=== PATIENT | female | born 1965 | race Caucasian/White ===

== ENCOUNTER 2019-11-04 01:59 | Inpatient (IN) | payer OTHER, SELFPAY ==
[2019-11-04] VITALS (30 sets, daily range): BP systolic 86–127; BP diastolic 51–76; PULSE 78–96; RESP 13–25; TEMP 36.3–37.2; O2SAT 96–100; BMI 29.2
--- NOTE | 2019-11-04 | ECHO_ITS ---
Patient Info Name: Jeanette Peres Age: 54 years : 1965 Gender: Female Ht: 69 in Wt: 197 lbs BSA: 2.11 m2 HR: 81 bpm BP: 106 / 76 mmHg Heart Rhythm: Sinus Rhythm Technical Quality: Good Exam Date: 11/04/2019 1:20 PM Exam Location: [facility] Patient Status: Inpatient Admit Date: 11/04/2019 Staff Ordering Physician: Grace Osman MD Management Manager: Joceline Adams RDCS Attending Provider: Branden Hendrickson MD Referring Physician: Dawson ROSENBERG; Exam Type: CA echo doppler color flow Study Info Complete two-dimensional, color flow and Doppler transthoracic echocardiogram is performed. Summary 1. Left ventricular systolic function is normal, estimated at 60%. 2. There is mildly increased left ventricular wall thickness. 3. The left ventricular diastolic function is normal. 4. E/e' 12.1 is mildly elevated. 5. Global longitudinal strain is mildly elevated at -17 %. 6. There is trace mitral valve regurgitation. 7. There is mild aortic valve sclerosis. 8. There is no aortic valve stenosis. 9. There is no aortic valve regurgitation. 10. There is mild tricuspid valve regurgitation. 11. No pulmonary hypertension, estimated pulmonary arterial systolic pressure is 9 mmHg. Left Ventricle Left ventricular chamber dimension is normal. Left ventricular systolic function is normal, estimated at 60%. There is mildly increased left ventricular wall thickness. Left ventricular septal wall motion is normal. The left ventricular diastolic function is normal. E/e' 12.1 is mildly elevated. Global longitudinal strain is mildly elevated at -17 %. Right Ventricle Right ventricular chamber dimension is normal. Right ventricular systolic function is normal. Left Atria Left atrial chamber dimension is normal. Right Atria Right atrial chamber dimension is normal. Atrial Septum Mild lipomatous hypertrophy of the atrial septum. Aortic Valve The aortic valve is probable trileaflet. There is mild aortic valve sclerosis. There is no aortic valve stenosis. There is no aortic valve regurgitation. Pulmonic Valve The pulmonic valve is not well visualized. There is trace pulmonic regurgitation. Mitral Valve The mitral valve has normal leaflets. There is trace mitral valve regurgitation. Tricuspid Valve The tricuspid valve leaflets are normal. There is mild tricuspid valve regurgitation. No pulmonary hypertension, estimated pulmonary arterial systolic pressure is 9 mmHg. Pericardium/Pleural The pericardium appears normal. There is no pericardial effusion. Inferior Vena Cava Normal inferior vena cava with >50% collapse upon inspiration consistent with normal right atrial pressure, 5 mmHg. Aorta The aortic root size at the sinus of Valsalva is normal. Left Ventricular Outflow Tract Name Value Normal LVOT 2D LVOT Diameter 2.0 cm LVOT Doppler LVOT Peak Velocity 122 cm/s LVOT Peak Gradient 6 mmHg LVOT Mean Gradient 3 mmHg LVOT VTI 22 cm LVOT VT
--- NOTE | ~2019-11-04 | US_ITS ---
EXAMINATION: US carotid duplex BI DATE: 11/04/2019 16:58 INDICATION: Carotid atherosclerosis and cerebral atherosclerosis presenting with syncope. TECHNIQUE: Grayscale, color Doppler, and pulsed Doppler images of the cervical carotid arteries were obtained. The degree of vessel stenosis is placed in one of the following categories: normal, <50%, 5 0-69%, >=70% but less than near-occlusion, near-occlusion, or total occlusion. Note that percent sten osis relative to normal distal artery lumen diameter is indirectly measured from velocity measurement s as described by Linus, et al. Radiology 2003; 229:340-346. COMPARISON: None. FINDINGS: RIGHT: The right common carotid artery (CCA) peak systolic velocity (PSV) is 112 cm/s. The right internal ca rotid artery (ICA) PSV is 94 cm/s. The right ICA end-diastolic velocity (EDV) is 29 cm/s. The right I CA/CCA PSV ratio is 0.8. Grayscale and color Doppler images yield an estimate of <50% diameter reduct ion from plaque in the ICA. The external carotid artery (ECA) PSV is 176 cm/s. There is antegrade arti w in the right vertebral artery. LEFT: The left CCA PSV is 82 cm/s. The left ICA PSV is 90 cm/s. The left ICA EDV is 26 cm/s. The left ICA/C CA PSV ratio is 1.1. Grayscale and color Doppler images yield an estimate of <50% diameter reduction from plaque in the ICA. The ECA PSV is 76 cm/s. There is antegrade flow in the left vertebral artery. IMPRESSION: 1. <50% stenosis from minimal plaque in the right internal carotid artery. 2. <50% stenosis from minimal plaque in the left internal carotid artery. Reviewed, dictated and finalized at location A. 1ST PRESSMAN ON [employer]
--- NOTE | ~2019-11-04 | XR_ITS ---
EXAMINATION: XR chest 2V DATE: 11/07/2019 09:42 INDICATION: Pneumonia, cough, and shortness of breath. TECHNIQUE: Frontal and lateral views of the chest were obtained. COMPARISON: Chest 2 views 10/28/2018, chest CT 11/04/2019 FINDINGS: There is mild atelectasis in the lower lung zones. No pleural effusion or pneumothorax. The heart size is normal. There is a catheter in left upper extremity with tip in the axilla. IMPRESSION: 1. Mild atelectasis in the lower lung zones. Reviewed, dictated and finalized at location A. HOUSE STOCKER
--- NOTE | ~2019-11-04 | CT_ITS ---
EXAMINATION: CTA chest PE protocol DATE: 11/04/2019 04:21 INDICATION: Mid chest pain, back pain, elevated d-dimer. Syncopal episode, fall. TECHNIQUE: Computed tomography angiography (CTA) of the chest was performed with 100 mL Omnipaque-350 intravenous contrast timed to evaluate the pulmonary arteries. Coronal maximum intensity projection 3D-reconstructions were created by the technologist. Automated exposure control and iterative reconst ruction technique were employed. Exam dose: 753.39 mGy-cm total exam DLP. COMPARISON: 05/24/2019 CT chest FINDINGS: There is diagnostic contrast enhancement of the pulmonary arteries and no evidence of pulmo nary embolism. No thoracic aortic aneurysm or dissection. Normal heart size. No pericardial or pleural effusion. Coronary artery atherosclerosis. Aortic and gr eat vessel calcifications. No hilar or mediastinal mass lesion or lymphadenopathy. Stable mildly lobulated 4 x 6 mm nodule in the medial basilar segment of the right lower lobe, unchan ged since 05/24/2019. There is chronic Mosaic attenuation in the lower lobes which may be due to chronic small airways dise ase. There is minimal bilateral lower lobe dependent atelectasis. Diffuse idiopathic skeletal hyperostosis of the thoracic spine. No suspicious osteolytic or osteoblas tic lesions are noted. IMPRESSION: No evidence of pulmonary embolism Coronary, aortic and great vessel atherosclerosis Reviewed, dictated and finalized at Location [facility]. Reviewed, dictated and finalized at location A. ING MACHINE OPERATOR
--- NOTE | ~2019-11-04 | CT_ITS ---
EXAMINATION: CT brain wo con DATE: 11/04/2019 04:21 INDICATION: Syncope. Fall. TECHNIQUE: Computed tomography (CT) of the head was performed without intravenous contrast. The mA wa s adjusted according to patient size. Iterative reconstruction technique was employed. Exam dose: 60 5.33 mGy-cm total exam DLP. COMPARISON: 03/12/2019 CT brain FINDINGS: Examination is limited by motion artifact. No intracranial mass lesion or hemorrhage or cerebrovascular accident is evident. Normal ventricular size. No subdural or epidural hematoma is detected. No fracture or bone destruction of the cranial vault is detected. Focal opacification in central righ t ethmoid sinus area; otherwise included paranasal sinuses and mastoid air cells are unremarkable. IMPRESSION: Limited examination; no acute intracranial abnormality or skull fracture Reviewed, dictated and finalized at [facility]. Reviewed, dictated and finalized at location A. NSED MIDWIFE IMPRESSION: Limited examination; no acute intracranial abnormality or skull fr acture
--- NOTE | 2019-11-04 02:40 | ECG_ITS ---
Measurements Intervals [place] Rate: 85 P: 16 CO: 164 QRS: -9 QRSD: 108 T: 47 QT: 467 QTc: 558 Interpretive Statements SINUS RHYTHM VENTRICULAR PREMATURE COMPLEX INCOMPLETE RIGHT BUNDLE BRANCH BLOCK DELAYED PRECORDIAL R/S TRANSITION BORDERLINE ST-T WAVE ABNORMALITY- LATERAL LEADS BASELINE ARTIFACT- I, II, III, AVL BORDERLINE ECG Electronically Signed On 11-04-2019 7:37:51 COMMUNITY NUTRITION EDUCATOR by Jun Navarro D.O.
--- NOTE | 2019-11-04 02:41 | ED.SYNCOPE ---
HPI - Syncope General Chief Complaint: Syncope Stated Complaint: syncopal episode x 2 Time Seen by Provider: 11/04/19 02:38 Source: patient Mode of arrival: ambulatory Limitations: no limitations History of Present Illness HPI narrative: A 54 y/o female presents to the ED with c/o syncope. Pt states that she syncopized 2 times yesterday. She notes that she was in her kitchen the first time and in her bathroom the second time. She was dizzy prior to the syncopal episode and she does not know what she hit when she lost consciousness. Pt reports vomiting and blurry vision, but denies CP, SOB, and ABD pain. The vomiting started 1 week ago and she vomited twice yesterday. She denies alcohol or drug use. Pt has a PMHx of diabetes and adds that it has been to high for her meter to register for the past month. complaint: other (Syncope) Onset (ago): hour(s) (Yesterday) Prodromal symptoms: other (Dizziness) Context: standing up Current symptoms: other (Blurry vision, vomiting) History: other (Diabetes) Related Data Allergies Allergy/AdvReac Type Severity Reaction Status Date / Time povidone-iodine Allergy Intermediate rash Verified 11/04/19 04:55 povidone Allergy Unknown Unknown Verified 11/04/19 04:55 soap Allergy Unknown Unknown Verified 11/04/19 04:55 Review of Systems Review of Systems: Narrative: CONSTITUTIONAL: Denies fever, chills, or sweats. EYES: Denies redness or discharge. Reports blurry vision. ENT: Denies rhinorrhea, congestion, sore throat, or otalgia. CARDIOVASCULAR: Denies chest pain, palpitations, or edema. RESPIRATORY: Denies cough or dyspnea. GASTROINTESTINAL: Denies abdominal pain, nausea, or diarrhea. Reports vomiting. GENITOURINARY: Denies dysuria or hematuria. SKIN: Denies rash or itching. MUSCULOSKELETAL: Denies back pain, joint pain, or myalgia. NEUROLOGIC: Denies headache, numbness, or weakness. Reports syncope. PSYCHIATRIC: Denies anxiety or depression. All systems reviewed & are unremarkable except as noted in HPI and below PMFSH Past Medical History Medical History (Updated 11/04/19 @ 05:20 by Tara Pate MD) Ankle fracture, right Anxiety Arthritis Bipolar disorder Chronic back pain COPD (chronic obstructive pulmonary disease) Depression Diabetes Fibromyalgia GERD (gastroesophageal reflux disease) Head ache History of blood transfusion HTN (hypertension) Hyperlipidemia IBS (irritable bowel syndrome) Peripheral neuropathy Pneumonia Post-menopausal Sleep apnea Tubal UTI (urinary tract infection) Surgical History Surgical History (Updated 11/04/19 @ 02:53 by Judith Mcmanus) History of breast biopsy History of cardiac catheterization History of cholecystectomy History of dilatation and curettage History of hysterectomy History of tubal ligation History of umbilical hernia repair Status post ORIF of fracture of ankle Family History Family History (Updated 11/04/19 @ 05:42 by Mahogany Broderick RN) Father Hypertension Grandparent Diabetes mellitus Other Diabetes mellitus Other Family history of heart disease in male family member before age 55 Social History Social History (Updated 11/04/19 @ 02:53 by Judith Mcmanus) Smoking packs per day: 1 Smoking cigarettes per day: 20.0 Years smoked: 30 Smoking pack-years: 30.00 Smoking status: Heavy tobacco smoker Tobacco type: cigarettes Second hand tobacco smoke exposure: Yes Alcohol intake: never Substance use: never Gender identity (if verbalized by the patient): Female Spiritual care concerns: No Agree to blood products: Yes Exam Narrative: Exam Narrative: GENERAL: Awake, alert, conversant HEAD: Normocephalic, atraumatic. EYES: PERRLA and EOMI. ENT: Nares clear, no rhinorrhea or epistaxis. Mucous membranes dry. NECK: Supple. CHEST: Clear to auscultation. No respiratory distress. HEART: Regular rate and rhythm. No murmur heard. Normal peripheral pulses. ABDOMEN: Soft, nontender, nond
[2019-11-04] MEDS: SODIUM CHLORIDE 0.9% IV 1,000 ML 999 ML ×2 (02:50)
[2019-11-04 02:54] LABS: Glucose Point of Care 476 (65-105)
[2019-11-04 03:05] LABS: Basophils Absolute Auto 0.1 K/mm3 (0.0-0.1); Basophils Percent Auto 0.3 % (0.2-1.2); Eosinophils Absolute Auto 0.1 K/mm3 (0-0.3); Eosinophils Percent Auto 0.6 % (0-4.4); Hematocrit 38.2 % (37.0-47.0); Hemoglobin 13.9 g/dL (12.0-15.0); Immature Granulocyte Absolute 0.17 K/mm3 (0.00-0.031); Lymphocytes Absolute Auto 2.22 K/mm3 (0.9-3.2); Lymphocytes Percent Auto 12.8 % (18.3-44.2); Mean Corpuscular HGB Conc 36.4 g/dl (32-36); Mean Corpuscular Hemoglobin 31.2 pg (26-34); Mean Corpuscular Volume 85.8 fl (80-100); Mean Platelet Volume 12.4 fl (7.4-10.4); Monocytes Absolute Auto 0.8 K/mm3 (0.1-0.6); Monocytes Percent Auto 4.3 % (2.6-8.5); Platelet Count Result 306 k/mm3 (150-375); Red Blood Count 4.45 M/mm3 (4.2-5.4); Red Cell Distribution Width 12.6 % (11.5-14.5); White Blood Count 17.3 K/mm3 (4.5-10.0)
--- NOTE | 2019-11-04 03:05 | PC.NURSE ---
Per TETO Pate, hold on giving magnesium.
[2019-11-04 03:14] LABS: Lactic Acid Reflex 2.5 mmol/L (0.7-2.1)
[2019-11-04 03:15] LABS: Partial Thromboplastin Time 24.6 SECONDS (22.3-36.8)
[2019-11-04 03:17] LABS: D Dimer 1.27 ug/mL (<0.48)
[2019-11-04 03:18] LABS: Prothrombin Time 12.9 Seconds (11.1-14.7)
[2019-11-04 03:24] LABS: Magnesium 1.8 mg/dL (1.6-2.3); Phosphorus 4.7 mg/dL (2.5-4.5)
[2019-11-04 03:31] LABS: Beta-Hydroxybutyrate/Acetoacetate 0.31 mmol/L (0.02-0.27); Troponin I < 0.012 ng/mL (0.000-0.034)
[2019-11-04 03:33] LABS: Alanine Aminotransferase 12 U/L (4-35); Albumin Level 3.5 g/dL (3.5-5.1); Alkaline Phosphatase 130 U/L (38-126); Aspartate Amino Transferase 18 U/L (14-36); Blood Urea Nitrogen 7 mg/dL (7-17); Calcium 8.5 mg/dL (8.4-10.2); Carbon Dioxide 33 mmol/L (22-30); Chloride 73 mmol/L (98-107); Estimated CRCL calculation 51 ml/min; Estimated Glomerular Filt Rate 43; Glucose 424 mg/dL (65-105); Potassium 2.2 mmol/L (3.4-5.0); Sodium 120 mmol/L (137-145)
--- NOTE | 2019-11-04 03:33 | PC.NURSE ---
Patient is unable to void and is refusing a straight cath. EDP Herlinda notified.
[2019-11-04] MEDS: SODIUM CHLORIDE 0.9% IV 1,000 ML 999 ML IV CONT (04:01)
[2019-11-04 05:46] LABS: Add Urine Microscopic? YES; Appearance Urine Clear (Clear); Bacteria Urine Trace /hpf; Bilirubin Urine Negative (Negative); Blood Urine 1+ (Negative); Color Urine Yellow (Yellow); Glucose Urine UA 3+ mg/dL (Negative); Ketones Urine Negative (Negative); Leukocyte Esterase Ur 2+ LEU/UL (Negative); Mucus Urine Rare /lpf; Nitrate Urine Negative (Negative); Protein Urine Negative (Negative); Specific Grav Ur 1.022 (1.001-1.035); Squamous Epithelial Cell Urine Many /hpf (Few); Urobilinogen Urine Negative mg/dL (<2.0)
[2019-11-04] MEDS: SODIUM CHLORIDE 0.9% IV 1,000 ML 125 ML IV CONT ×2 (05:50→15:40)
[2019-11-04 05:59] LABS: Reflex Lactic Acid Yes or No Add Lactic
--- NOTE | 2019-11-04 06:58 | ADMGEN ---
This patient, Jeanette Peres, was admitted to [facility] ICU-1. Patient/family oriented to hospital policies and general routines including ID bracelet, bed and alarms, visiting hours, pain management, procedures, bathroom and other care routines, personal items, smoking policy, room service/diet, and visiting hours. Valuables list has been completed. Information on how to activate the Rapid Response Team has been discussed. Patient/Family are encouraged to report perceived risks to care and to ask questions if they do not understand what they are told or what they should do.
[2019-11-04 07:48] LABS: Glucose Point of Care 393 (65-105)
[2019-11-04] MEDS: INSULIN HUMAN REGULAR (*BKC) 100 UNITS/ML IV PUSH (08:36)
[2019-11-04 09:33] LABS: Lactic Acid 3.1 mmol/L (0.7-2.1)
[2019-11-04] MEDS: LACTATED RINGERS 1,000 ML 999 ML IV CONT (09:38)
[2019-11-04 09:44] LABS: Glucose Point of Care 400 (65-105)
[2019-11-04] MEDS: INSULIN DETEMIR 100 UNITS/ML SUB-Q ×2 (10:58→21:10)
--- NOTE | 2019-11-04 10:58 | WPDCNINT ---
Assessment and Plan Assessment and plan (1) Severe sepsis: Code(s): A41.9 - Sepsis, unspecified organism; R65.20 - Severe sepsis without septic shock Status: Acute Assessment and Plan: patient presented with hypotension, syncope, lactic acidosis, acute kidney injury. patient received 2 L of IV fluids in the ED, will give additional IV fluid bolus - likely source of infection lungs - possible pneumonia or UTI - continue cefepime and vancomycin - recheck lactic acid levels (2) Aspiration pneumonia: Qualifiers: Aspiration pneumonia type: due to vomit Laterality: left Lung location: lower lobe of lung Qualified Code(s): J69.0 - Pneumonitis due to inhalation of food and vomit Code(s): J69.0 - Pneumonitis due to inhalation of food and vomit Status: Acute Assessment and Plan: continue antibiotics as above (3) Acute hypokalemia: Code(s): E87.6 - Hypokalemia Status: Acute Assessment and Plan: aggressively replete potassium. Patient does state that she has had problems with low potassium (4) Acute hyponatremia: Code(s): E87.1 - Hypo-osmolality and hyponatremia Status: Acute Assessment and Plan: acute hyponatremia could be related to hypovolemia, dehydration secondary to vomiting. Patient also has had some diarrhea - patient has been adequately fluid-resuscitated, sodium levels improving, continue to monitor (5) Dehydration: Code(s): E86.0 - Dehydration Status: Acute Assessment and Plan: patient given 2 L of IV fluids in the ED, will repeat another L of fluids in the ICU - continue to monitor BMP (6) Hyperglycemia: Code(s): R73.9 - Hyperglycemia, unspecified Status: Acute Assessment and Plan: patient with hyperglycemia, non DKA. - Hemoglobin A1c is 13, patient may be running high blood sugars in the 350s to 400s even at home. - continue Accu-Cheks and sliding scale insulin, will add Levemir and give regular insulin. (7) DVT prophylaxis: Code(s): Z29.9 - Encounter for prophylactic measures, unspecified Status: Acute Assessment and Plan: SCDs Additional Plan Discussed with patient updated her with her condition and plan of care Code status: Full code Critical care time spent: 37 minutes Due to a high probability of clinically significant, life threatening deterioration, the patient required my highest level of preparedness to intervene emergently and I personally spent this critical care time directly and personally managing the patient. This critical care time included obtaining a history; examining the patient; pulse oximetry; ordering and review of studies; arranging urgent treatment with development of a management plan; evaluation of patient's response to treatment; frequent reassessment; and discussions with other providers. It was exclusive of separately billable procedures and treating other patients and teaching time. Please see Assessment and Plan section and the rest of the note for further information on patient assessment and treatment Help Aid Consult Note Consult date: 11/04/19 Time Seen: 07:11 Reason for consult: syncopal episode, hyperglycemia, hyponatremia, lactic acidosis, sepsis, hypokalemia HPI: Jeanette Peres is a 54 year old female with significant past medical history off COPD, diabetes, anxiety and depression, GERD, hypertension, hyperlipidemia, irritable bowel syndrome, peripheral neuropathy, history of pneumonia, sleep apnea, UTI presented to the ED 11/04/2019 with complains of syncope. Patient stated that she had 2 episodes of blacking out / syncope on 11/03/2019. First episode was in the kitchen and the 2nd episode was in the bathroom. She stated she felt dizzy prior to the syncopal episodes, She does not remember if she hit herself when she had the LOC. Patient stated that she had vomiting that started a week ago, she has been
[2019-11-04 11:09] LABS: Blood Urea Nitrogen 7 mg/dL (7-17); Calcium 7.8 mg/dL (8.4-10.2); Carbon Dioxide 22 mmol/L (22-30); Chloride 90 mmol/L (98-107); Estimated CRCL calculation 108 ml/min; Estimated Glomerular Filt Rate > 60; Glucose 319 mg/dL (65-105); Potassium 3.1 mmol/L (3.4-5.0); Sodium 126 mmol/L (137-145)
[2019-11-04] MEDS: INSULIN HUMAN REGULAR (*BKC) 100 UNITS/ML 7 UNITS IV PUSH (11:29)
[2019-11-04 11:56] LABS: Glucose Point of Care 293 (65-105)
[2019-11-04] MEDS: INSULIN ASPART (*BKC) 100 UNITS/ML SUB-Q ×3 (12:57→21:36)
[2019-11-04 12:59] LABS: Glucose Point of Care 255 (65-105)
--- NOTE | 2019-11-04 14:42 | PC.NURSE ---
Pt transferred to rm 200 via W/C on tele. Bedside report given to Teresa Grag RN. Pt A&Ox4 and VSS at time of transfer. Belongings sent with pt.
--- NOTE | 2019-11-04 15:01 | ADMGEN ---
This patient, Jeanette Peres, was admitted to IMU Room 200-01. Patient/family oriented to hospital policies and general routines including ID bracelet, bed and alarms, visiting hours, pain management, procedures, bathroom and other care routines, personal items, smoking policy, room service/diet, and visiting hours. Valuables list has been completed. Information on how to activate the Rapid Response Team has been discussed. Patient/Family are encouraged to report perceived risks to care and to ask questions if they do not understand what they are told or what they should do.
--- NOTE | 2019-11-04 15:03 | PC.NURSE ---
Dr. Urrutia notified of 10 beat vtach run. Patient denies chest pain, shortness of breath. Pt alert and oriented x4, sitting up in bed. No complaints at this time,will continue to monitor closely.
--- NOTE | 2019-11-04 16:06 | PM.IMHP ---
H&P: HPI History of Present Illness Chief complaint: Aspiration pneumonia, Septic shock, Narrative: Jeanette Peres is a 54 year old female 54-year-old female with history of diabetes patient presented emergency department with a to syncopal episode yesterday patient states his 1 weeks he has been vomiting, and was dizzy prior to the syncopal episode and lost conscious currently patient is quite somnolent and poor historian blood patient was found to hyperglycemia hypokalemia lactic acidosis dehydration, patient was vigorously hydrated emergency department was given the bolus of 30 milliliter/kilogram, chest x-ray showed pneumonia with syncopal episode suspect patient may have aspirated patient is being treated with cefepime and vancomycin patient was also found to hyperglycemia see was not in DKA, patient was seen in ICU discussed with hr specialist patient did not need any IV insulin, will transfer the patient out of ICU, CTA of the chest is negative for pulmonary emboli, CT scan of the head is negative for any acute injury, cardiac echo and carotid ultrasounds are pending Review of Systems Review of Systems: All systems reviewed & are unremarkable except as noted in HPI and below PMFSH Past Medical History Medical History (Updated 11/04/19 @ 11:48 by Grace Osman MD) Ankle fracture, right Anxiety Arthritis Bipolar disorder Chronic back pain COPD (chronic obstructive pulmonary disease) Depression Diabetes Fibromyalgia GERD (gastroesophageal reflux disease) Head ache History of blood transfusion HTN (hypertension) Hyperlipidemia IBS (irritable bowel syndrome) Peripheral neuropathy Pneumonia Post-menopausal Sleep apnea Tubal UTI (urinary tract infection) Surgical History Surgical History (Updated 11/04/19 @ 02:53 by Judith Mcmanus) History of breast biopsy History of cardiac catheterization History of cholecystectomy History of dilatation and curettage History of hysterectomy History of tubal ligation History of umbilical hernia repair Status post ORIF of fracture of ankle Family History Family History (Updated 11/04/19 @ 05:42 by Mahogany Brdoerick RN) Father Hypertension Grandparent Diabetes mellitus Other Diabetes mellitus Other Family history of heart disease in male family member before age 55 Social History Social History (Updated 11/04/19 @ 02:53 by Judith Mcmanus) Smoking packs per day: 1 Smoking cigarettes per day: 20.0 Years smoked: 30 Smoking pack-years: 30.00 Smoking status: Heavy tobacco smoker Tobacco type: cigarettes Second hand tobacco smoke exposure: Yes Alcohol intake: never Substance use: never Gender identity (if verbalized by the patient): Female Spiritual care concerns: No Agree to blood products: Yes Meds Home Medications and Allergies Home Medications Medication Instructions Recorded Confirmed Type Pepcid 20 mg PO BID 11/04/19 11/04/19 History atorvastatin 80 mg PO HS 11/04/19 11/04/19 History brexpiprazole [Rexulti] 4 mg PO DAILY 11/04/19 11/04/19 History bupropion HCl 300 mg PO DAILY 11/04/19 11/04/19 History duloxetine [Cymbalta] 60 mg PO BID 11/04/19 11/04/19 History fenofibrate 160 mg PO DAILY 11/04/19 11/04/19 History glimepiride 4 mg PO BID 11/04/19 11/04/19 History insulin glargine [Lantus U-100 60 unit SUBCUT BID 11/04/19 11/04/19 History Insulin] lisinopril 10 mg PO DAILY 11/04/19 11/04/19 History potassium chloride 20 meq PO DAILY 11/04/19 11/04/19 History trazodone 150 mg PO HS 11/04/19 11/04/19 History Allergies Allergy/AdvReac Type Severity Reaction Status Date / Time povidone-iodine Allergy Intermediate rash Verified 11/04/19 04:55 povidone Allergy Unknown Unknown Verified 11/04/19 04:55 soap Allergy Unknown Unknown Verified 11/04/19 04:55 Vital Signs Vital Signs - 24 hr 11/04/19 02:06 11/04/19 02:34 11/04/19 02:39 Temperature 97.5 F L Pulse Rate 80 85 Respiratory Rate 18 18 Blood Pressure
[2019-11-04 17:38] LABS: Glucose Point of Care 266 (65-105)
[2019-11-04 20:11] LABS: Glucose Point of Care 325 (65-105)
[2019-11-04 20:37] LABS: Blood Urea Nitrogen 5 mg/dL (7-17); Calcium 8.2 mg/dL (8.4-10.2); Carbon Dioxide 25 mmol/L (22-30); Chloride 95 mmol/L (98-107); Estimated CRCL calculation 127 ml/min; Estimated Glomerular Filt Rate > 60; Glucose 324 mg/dL (65-105); Magnesium 1.9 mg/dL (1.6-2.3); Potassium 2.7 mmol/L (3.4-5.0); Sodium 131 mmol/L (137-145)
[2019-11-04] MEDS: DEXTROSE 5% IN WATER 500 ML 125 ML IV CONT (21:29)
[2019-11-05] VITALS (19 sets, daily range): BP systolic 115–130; BP diastolic 66–76; PULSE 82–98; RESP 18–21; TEMP 36.2–36.8; O2SAT 94–100
[2019-11-05 00:10] LABS: Blood Urea Nitrogen 4 mg/dL (7-17); Calcium 8.5 mg/dL (8.4-10.2); Carbon Dioxide 28 mmol/L (22-30); Chloride 93 mmol/L (98-107); Estimated CRCL calculation 127 ml/min; Estimated Glomerular Filt Rate > 60; Glucose 256 mg/dL (65-105); Potassium 2.6 mmol/L (3.4-5.0); Sodium 133 mmol/L (137-145)
[2019-11-05 00:26] LABS: Glucose Point of Care 238 (65-105)
[2019-11-05 03:35] LABS: Glucose Point of Care 297 (65-105)
[2019-11-05 04:22] LABS: Basophils Percent Auto 0.2 % (0.2-1.2); Eosinophils Absolute Auto 0.1 K/mm3 (0-0.3); Eosinophils Percent Auto 0.9 % (0-4.4); Hematocrit 34.8 % (37.0-47.0); Hemoglobin 12.3 g/dL (12.0-15.0); Immature Granulocyte Absolute 0.06 K/mm3 (0.00-0.031); Immature Granulocyte Percent A 0.7 % (0-0.5); Lymphocytes Absolute Auto 2.44 K/mm3 (0.9-3.2); Lymphocytes Percent Auto 26.5 % (18.3-44.2); Mean Corpuscular HGB Conc 35.3 g/dl (32-36); Mean Corpuscular Hemoglobin 31.3 pg (26-34); Mean Corpuscular Volume 88.5 fl (80-100); Mean Platelet Volume 11.5 fl (7.4-10.4); Monocytes Absolute Auto 0.5 K/mm3 (0.1-0.6); Monocytes Percent Auto 5.7 % (2.6-8.5); Neutrophils Absolute Auto 6.1 K/mm3 (1.3-6.7); Platelet Count Result 244 k/mm3 (150-375); Red Blood Count 3.93 M/mm3 (4.2-5.4); Red Cell Distribution Width 12.8 % (11.5-14.5); White Blood Count 9.2 K/mm3 (4.5-10.0)
[2019-11-05 04:33] LABS: Lactic Acid 1.5 mmol/L (0.7-2.1)
[2019-11-05 04:50] LABS: Alanine Aminotransferase 10 U/L (4-35); Albumin Level 3.3 g/dL (3.5-5.1); Alkaline Phosphatase 109 U/L (38-126); Aspartate Amino Transferase 11 U/L (14-36); Bilirubin,Total 0.4 mg/dL (0.2-1.3); Blood Urea Nitrogen 3 mg/dL (7-17); Calcium 8.4 mg/dL (8.4-10.2); Carbon Dioxide 27 mmol/L (22-30); Chloride 95 mmol/L (98-107); Estimated CRCL calculation 129 ml/min; Estimated Glomerular Filt Rate > 60; Glucose 293 mg/dL (65-105); Magnesium 1.8 mg/dL (1.6-2.3); Phosphorus 3.2 mg/dL (2.5-4.5); Potassium 2.6 mmol/L (3.4-5.0); Sodium 132 mmol/L (137-145)
[2019-11-05] MEDS: POTASSIUM CHLORIDE 20 MEQ PACKET (FOR LIQUID) 40 MEQ PO ×2 (08:32→15:21)
[2019-11-05] MEDS: INSULIN DETEMIR 100 UNITS/ML SUB-Q ×2 (08:34→20:06)
[2019-11-05] MEDS: INSULIN ASPART (*BKC) 100 UNITS/ML SUB-Q ×3 (08:34→17:26)
[2019-11-05 11:33] LABS: Blood Urea Nitrogen 2 mg/dL (7-17); Calcium 8.6 mg/dL (8.4-10.2); Carbon Dioxide 28 mmol/L (22-30); Chloride 94 mmol/L (98-107); Estimated CRCL calculation 129 ml/min; Estimated Glomerular Filt Rate > 60; Glucose 228 mg/dL (65-105); Magnesium 1.8 mg/dL (1.6-2.3); Potassium 3.3 mmol/L (3.4-5.0); Sodium 133 mmol/L (137-145)
[2019-11-05 12:03] LABS: Glucose Point of Care 225 (65-105)
--- NOTE | 2019-11-05 12:59 | PM.IMPN ---
Progress Note: A&P Assessment and Plan (1) Severe sepsis: Code(s): A41.9 - Sepsis, unspecified organism; R65.20 - Severe sepsis without septic shock Status: Acute Assessment and Plan: 11/05/19 12:59 Jeanette Peres is a 54 year old female 54-year-old female with history of diabetes patient presented emergency department with a to syncopal episode yesterday patient states his 1 weeks he has been vomiting, and was dizzy prior to the syncopal episode and lost conscious currently patient is quite somnolent and poor historian blood patient was found to hyperglycemia hypokalemia lactic acidosis dehydration, patient was vigorously hydrated emergency department was given the bolus of 30 milliliter/kilogram, chest x-ray showed pneumonia with syncopal episode suspect patient may have aspirated patient is being treated with cefepime and vancomycin patient was also found to hyperglycemia see was not in DKA, patient was seen in ICU discussed with sifter operator patient did not need any IV insulin, transferred the patient out of ICU to IMU, CTA of the chest is negative for pulmonary emboli, CT scan of the head is negative for any acute injury, cardiac echo is normal, and carotid ultrasounds did not show any significant stenosis, continue present management have the PT OT evaluate the patient (2) Aspiration pneumonia: Qualifiers: Aspiration pneumonia type: due to vomit Laterality: left Lung location: lower lobe of lung Qualified Code(s): J69.0 - Pneumonitis due to inhalation of food and vomit Code(s): J69.0 - Pneumonitis due to inhalation of food and vomit Status: Acute Assessment and Plan: Most likely aspiration pneumonia as patient had a syncopal episode patient is being treated with cefepime and vancomycin will repeat checks x-ray tomorrow, (3) Acute hyponatremia: Code(s): E87.1 - Hypo-osmolality and hyponatremia Status: Acute Assessment and Plan: Most likely secondary to her dehydration and hyperglycemia patient is being hydrated and being monitor, patient sodium is improving. (4) Acute hypokalemia: Code(s): E87.6 - Hypokalemia Status: Acute Assessment and Plan: Patient had been having nausea and vomiting most likely secondary to poor p.o. intake will supplement and monitor (5) Hyperglycemia: Code(s): R73.9 - Hyperglycemia, unspecified Status: Acute Assessment and Plan: Patient with hyperglycemia non DKA most likely secondary to noncompliance with insulin due to nausea and vomiting will continue Levemir and sliding scale and will monitor (6) Dehydration: Code(s): E86.0 - Dehydration Status: Acute Assessment and Plan: Patient with a nausea or vomiting hyperglycemia resulting in dehydration patient is being hydrated kidney function is improving Subjective Date/time seen: 11/05/19 12:59 Jeanette Peres is a 54 year old female 54-year-old female with history of diabetes patient presented emergency department with a to syncopal episode yesterday patient states his 1 weeks he has been vomiting, and was dizzy prior to the syncopal episode and lost conscious currently patient is quite somnolent and poor historian blood patient was found to hyperglycemia hypokalemia lactic acidosis dehydration, patient was vigorously hydrated emergency department was given the bolus of 30 milliliter/kilogram, chest x-ray showed pneumonia with syncopal episode suspect patient may have aspirated patient is being treated with cefepime and vancomycin patient was also found to hyperglycemia see was not in DKA, patient was seen in ICU discussed with sifter operator patient did not need any IV insulin, transferred the patient out of ICU to IMU, CTA of the chest is negative for pulmonary emboli, CT scan of the head is negative for any acute injury, cardiac echo is normal, and carotid ultrasounds did not show any significant stenosis, continue present management have the PT OT
[2019-11-05] MEDS: ALPRAZOLAM 0.5 MG TABLET PO (13:10)
[2019-11-05 17:21] LABS: Glucose Point of Care 299 (65-105)
[2019-11-05 18:51] LABS: Potassium 3.5 mmol/L (3.4-5.0)
[2019-11-05 20:11] LABS: Glucose Point of Care 250 (65-105)
[2019-11-06] VITALS (12 sets, daily range): BP systolic 120–148; BP diastolic 64–106; PULSE 79–90; RESP 16–22; TEMP 36.6–36.9; O2SAT 97–100
[2019-11-06 03:51] LABS: Glucose Point of Care 197 (65-105)
[2019-11-06 04:57] LABS: Hematocrit 36.1 % (37.0-47.0); Hemoglobin 12.2 g/dL (12.0-15.0); Mean Corpuscular HGB Conc 33.8 g/dl (32-36); Mean Corpuscular Hemoglobin 30.7 pg (26-34); Mean Corpuscular Volume 90.9 fl (80-100); Mean Platelet Volume 11.3 fl (7.4-10.4); Platelet Count Result 284 k/mm3 (150-375); Red Blood Count 3.97 M/mm3 (4.2-5.4); Red Cell Distribution Width 12.9 % (11.5-14.5)
[2019-11-06 05:16] LABS: Calcium 9.2 mg/dL (8.4-10.2); Carbon Dioxide 31 mmol/L (22-30); Chloride 94 mmol/L (98-107); Estimated CRCL calculation 128 ml/min; Estimated Glomerular Filt Rate > 60; Glucose 223 mg/dL (65-105); Magnesium 1.6 mg/dL (1.6-2.3); Sodium 134 mmol/L (137-145)
[2019-11-06 05:43] LABS: Blood Urea Nitrogen < 2 mg/dL (7-17)
[2019-11-06 05:46] LABS: Glucose Point of Care 218 (65-105)
[2019-11-06] MEDS: MAGNESIUM SULF 2 GM/WATER 50ML 2 GM/50 ML BAG IVPB (06:21)
[2019-11-06] MEDS: POTASSIUM CHLORIDE 20 MEQ TABLET 40 MEQ PO (06:21)
[2019-11-06] MEDS: INSULIN ASPART (*BKC) 100 UNITS/ML SUB-Q ×3 (08:49→17:12)
[2019-11-06] MEDS: INSULIN DETEMIR 100 UNITS/ML SUB-Q ×2 (08:50→20:24)
[2019-11-06 10:22] LABS: Glucose Point of Care 333 (65-105)
[2019-11-06] MEDS: LIDOCAINE HCL 1% LOCAL INJ 2 ML AMPUL 5 ML INFILTRATE (10:50)
[2019-11-06 13:33] LABS: Glucose Point of Care 273 (65-105)
[2019-11-06 17:05] LABS: Glucose Point of Care 223 (65-105)
[2019-11-06] MEDS: NICOTINE (*PBKC) 21 MG PATCH 1 PATCH TRANSDERM (17:11)
--- NOTE | 2019-11-06 18:40 | PM.IMPN ---
Progress Note: A&P Assessment and Plan (1) Severe sepsis: Code(s): A41.9 - Sepsis, unspecified organism; R65.20 - Severe sepsis without septic shock Status: Acute Assessment and Plan: 11/06/19 18:40 Jeanette Peres is a 54 year old female 54-year-old female with history of diabetes patient presented emergency department with a to syncopal episode yesterday patient states his 1 weeks he has been vomiting, and was dizzy prior to the syncopal episode and lost conscious currently patient is quite somnolent and poor historian blood patient was found to hyperglycemia hypokalemia lactic acidosis dehydration, patient was vigorously hydrated emergency department was given the bolus of 30 milliliter/kilogram, chest x-ray showed pneumonia with syncopal episode suspect patient may have aspirated patient is being treated with cefepime and vancomycin patient was also found to hyperglycemia see was not in DKA, patient was seen in ICU discussed with chainstitch hemmer patient did not need any IV insulin, transferred the patient out of ICU to IMU, CTA of the chest is negative for pulmonary emboli, CT scan of the head is negative for any acute injury, cardiac echo is normal, and carotid ultrasounds did not show any significant stenosis, continue present management have the PT OT evaluate the patient, today patient is more alert and stats feeling better, will repeat chest x-ray for furhte evaluate her pneumonia, (2) Aspiration pneumonia: Qualifiers: Aspiration pneumonia type: due to vomit Laterality: left Lung location: lower lobe of lung Qualified Code(s): J69.0 - Pneumonitis due to inhalation of food and vomit Code(s): J69.0 - Pneumonitis due to inhalation of food and vomit Status: Acute Assessment and Plan: Most likely aspiration pneumonia as patient had a syncopal episode patient is being treated with cefepime and vancomycin will repeat checks x-ray tomorrow, (3) Acute hyponatremia: Code(s): E87.1 - Hypo-osmolality and hyponatremia Status: Acute Assessment and Plan: Most likely secondary to her dehydration and hyperglycemia patient is being hydrated and being monitor, patient sodium is improving. (4) Acute hypokalemia: Code(s): E87.6 - Hypokalemia Status: Acute Assessment and Plan: Patient had been having nausea and vomiting most likely secondary to poor p.o. intake will supplement and monitor (5) Hyperglycemia: Code(s): R73.9 - Hyperglycemia, unspecified Status: Acute Assessment and Plan: Patient with hyperglycemia non DKA most likely secondary to noncompliance with insulin due to nausea and vomiting will continue Levemir and sliding scale and will monitor (6) Dehydration: Code(s): E86.0 - Dehydration Status: Acute Assessment and Plan: Patient with a nausea or vomiting hyperglycemia resulting in dehydration patient is being hydrated kidney function is improving Subjective Date/time seen: 11/06/19 18:40 Jeanette Peres is a 54 year old female 54-year-old female with history of diabetes patient presented emergency department with a to syncopal episode yesterday patient states his 1 weeks he has been vomiting, and was dizzy prior to the syncopal episode and lost conscious currently patient is quite somnolent and poor historian blood patient was found to hyperglycemia hypokalemia lactic acidosis dehydration, patient was vigorously hydrated emergency department was given the bolus of 30 milliliter/kilogram, chest x-ray showed pneumonia with syncopal episode suspect patient may have aspirated patient is being treated with cefepime and vancomycin patient was also found to hyperglycemia see was not in DKA, patient was seen in ICU discussed with chainstitch hemmer patient did not need any IV insulin, transferred the patient out of ICU to IMU, CTA of the chest is negative for pulmonary emboli, CT scan of the head is negative for any acute injury, cardiac echo is n
[2019-11-06] MEDS: TRAMADOL HCL 50 MG TABLET PO (18:47)
[2019-11-06 18:49] LABS: Vancomycin Trough 9.9 ug/mL (10.0-20.0)
[2019-11-06 19:04] LABS: Blood Urea Nitrogen 4 mg/dL (7-17); Calcium 9.1 mg/dL (8.4-10.2); Carbon Dioxide 29 mmol/L (22-30); Chloride 93 mmol/L (98-107); Estimated CRCL calculation 108 ml/min; Estimated Glomerular Filt Rate > 60; Glucose 133 mg/dL (65-105); Magnesium 1.7 mg/dL (1.6-2.3); Potassium 3.5 mmol/L (3.4-5.0); Sodium 134 mmol/L (137-145)
[2019-11-06 20:13] LABS: Glucose Point of Care 159 (65-105)
--- NOTE | 2019-11-06 21:34 | PC.NURSE ---
PATIENT TRANSFERRED TO [address] [place] [address] ([phone] WITH ALL BELONGINGS AND MEDICATIONS. REPORT CALLED TO RN.
[2019-11-06] MEDS: TRAZODONE HCL 50 MG TABLET 150 MG PO (22:26)
[2019-11-07 06:06] LABS: Hematocrit 37.4 % (37.0-47.0); Hemoglobin 12.4 g/dL (12.0-15.0); Mean Corpuscular HGB Conc 33.2 g/dl (32-36); Mean Corpuscular Hemoglobin 30.5 pg (26-34); Mean Corpuscular Volume 92.1 fl (80-100); Mean Platelet Volume 11.7 fl (7.4-10.4); Platelet Count Result 297 k/mm3 (150-375); Red Blood Count 4.06 M/mm3 (4.2-5.4); Red Cell Distribution Width 12.9 % (11.5-14.5); White Blood Count 9.5 K/mm3 (4.5-10.0)
[2019-11-07 06:32] VITALS: BP 135/77; PULSE 92; RESP 18; TEMP 35.6; O2SAT 99
[2019-11-07 06:34] LABS: Blood Urea Nitrogen 4 mg/dL (7-17); Calcium 8.9 mg/dL (8.4-10.2); Carbon Dioxide 30 mmol/L (22-30); Chloride 91 mmol/L (98-107); Estimated CRCL calculation 127 ml/min; Estimated Glomerular Filt Rate > 60; Glucose 242 mg/dL (65-105); Magnesium 1.6 mg/dL (1.6-2.3); Potassium 3.3 mmol/L (3.4-5.0); Sodium 132 mmol/L (137-145)
[2019-11-07] MEDS: INSULIN ASPART (*BKC) 100 UNITS/ML SUB-Q ×2 (07:18→11:50)
[2019-11-07] MEDS: INSULIN DETEMIR 100 UNITS/ML SUB-Q (07:19)
[2019-11-07 07:29] LABS: Glucose Point of Care 285 (65-105)
[2019-11-07] MEDS: POTASSIUM CHLORIDE 20 MEQ PACKET (FOR LIQUID) 40 MEQ PO (09:57)
[2019-11-07] MEDS: NICOTINE (*PBKC) 21 MG PATCH 1 PATCH TRANSDERM (09:58)
[2019-11-07] MEDS: MAGNESIUM OXIDE 400 MG TABLET PO (09:58)
--- NOTE | 2019-11-07 11:03 | PCPTNOTE ---
Attempted PT eval. Pt refused, states she is walking indep in room and does not need therapy. Will speak w/ Dr Urrutia and DC PT.
--- NOTE | 2019-11-07 12:15 | PM.DS ---
DS: Diagnosis Admitting Diagnosis Admitting Diagnosis: Sepsis, unspecified organism Discharge Diagnosis (1) Severe sepsis: Code(s): A41.9 - Sepsis, unspecified organism; R65.20 - Severe sepsis without septic shock Status: Acute Assessment and Plan: 11/06/19 18:40 Jeanette Peres is a 54 year old female 54-year-old female with history of diabetes patient presented emergency department with a to syncopal episode yesterday patient states his 1 weeks he has been vomiting, and was dizzy prior to the syncopal episode and lost conscious currently patient is quite somnolent and poor historian blood patient was found to hyperglycemia hypokalemia lactic acidosis dehydration, patient was vigorously hydrated emergency department was given the bolus of 30 milliliter/kilogram, chest x-ray showed pneumonia with syncopal episode suspect patient may have aspirated patient is being treated with cefepime and vancomycin patient was also found to hyperglycemia see was not in DKA, patient was seen in ICU discussed with endbander patient did not need any IV insulin, transferred the patient out of ICU to IMU, CTA of the chest is negative for pulmonary emboli, CT scan of the head is negative for any acute injury, cardiac echo is normal, and carotid ultrasounds did not show any significant stenosis, continue present management have the PT OT evaluate the patient, today patient is more alert and stats feeling better, will repeat chest x-ray for furhte evaluate her pneumonia, (2) Aspiration pneumonia: Qualifiers: Aspiration pneumonia type: due to vomit Laterality: left Lung location: lower lobe of lung Qualified Code(s): J69.0 - Pneumonitis due to inhalation of food and vomit Code(s): J69.0 - Pneumonitis due to inhalation of food and vomit Status: Acute Assessment and Plan: Most likely aspiration pneumonia as patient had a syncopal episode patient is being treated with cefepime and vancomycin will repeat checks x-ray tomorrow, (3) Acute hyponatremia: Code(s): E87.1 - Hypo-osmolality and hyponatremia Status: Acute Assessment and Plan: Most likely secondary to her dehydration and hyperglycemia patient is being hydrated and being monitor, patient sodium is improving. (4) Acute hypokalemia: Code(s): E87.6 - Hypokalemia Status: Acute Assessment and Plan: Patient had been having nausea and vomiting most likely secondary to poor p.o. intake will supplement and monitor (5) Hyperglycemia: Code(s): R73.9 - Hyperglycemia, unspecified Status: Acute Assessment and Plan: Patient with hyperglycemia non DKA most likely secondary to noncompliance with insulin due to nausea and vomiting will continue Levemir and sliding scale and will monitor (6) Dehydration: Code(s): E86.0 - Dehydration Status: Acute Assessment and Plan: Patient with a nausea or vomiting hyperglycemia resulting in dehydration patient is being hydrated kidney function is improving DS: Summary Hospital Course Reason for hospitalization: Jeanette Peres is a 54 year old female 54-year-old female with history of diabetes patient presented emergency department with a to syncopal episode yesterday patient states his 1 weeks he has been vomiting, and was dizzy prior to the syncopal episode and lost conscious currently patient is quite somnolent and poor historian blood patient was found to hyperglycemia hypokalemia lactic acidosis dehydration, patient was vigorously hydrated emergency department was given the bolus of 30 milliliter/kilogram, chest x-ray showed pneumonia with syncopal episode suspect patient may have aspirated patient is being treated with cefepime and vancomycin patient was also found to hyperglycemia see was not in DKA, patient was seen in ICU discussed with endbander patient did not need any IV insulin, will transfer the patient out of ICU, CTA of the chest is negative for pulmonary emb
[2019-11-07 14:12] LABS: Glucose Point of Care 228 (65-105)
== END 2019-11-07 13:45 | disposition home or self-care (01) | DRG 871 ==
LOC: ANHED 05:20 → ANHICU 06:46 → ANHIMU 11-06 17:37 → ANH2MED 11-07 12:15 → ANH3MED 11-10 08:21 → ANHICU 11-10 08:21 → ANHIMU 11-10 08:21
PROVIDERS: Internal Medicine; Physician Assistant; Admitting Provider Internal Medicine; Emergency Provider Emergency Medicine; PCP Family Medicine; Visit Provider Family Medicine
DX: A41.9 Sepsis, unspecified organism (principal); J69.0 Pneumonitis due to inhalation of food and vomit; E87.1 Hypo-osmolality and hyponatremia; N17.9 Acute kidney failure, unspecified; E87.2 Acidosis; R65.20 Severe sepsis without septic shock; R55 Syncope and collapse; E87.6 Hypokalemia; E86.0 Dehydration; F31.9 Bipolar disorder, unspecified; M19.90 Unspecified osteoarthritis, unspecified site; K21.9 Gastro-esophageal reflux disease without esophagitis; M79.7 Fibromyalgia; E78.5 Hyperlipidemia, unspecified; I10 Essential (primary) hypertension; K58.9 Irritable bowel syndrome, unspecified; E11.42 Type 2 diabetes mellitus with diabetic polyneuropathy; G47.30 Sleep apnea, unspecified; E11.65 Type 2 diabetes mellitus with hyperglycemia; Z91.14 Patient's other noncompliance with medication regimen; Z28.21 Immunization not carried out because of patient refusal; Z90.49 Acquired absence of other specified parts of digestive tract; Z90.710 Acquired absence of both cervix and uterus; F17.210 Nicotine dependence, cigarettes, uncomplicated
CPT/HCPCS: 36415; 36569; 36600; 70450; 71046; 71275; 80048; 80053; 80202; 81001; 82010; 82948; 83036; 83605; 83735; 84100; 84132; 84484; 85025; 85027; 85380; 85610; 85730; 87040; 87081; 87086; 87804; 93005; 93306; 93880; 96361; 96365; 99291; A9270; C1751; J0692; J1815; J3370; J3475; J3480; J7030; J7060; J7120; Q9967

== ENCOUNTER 2019-12-20 10:40 | Outpatient (CLI) | payer OTHER, SELFPAY ==
--- NOTE | ~2019-12-20 | XR_ITS ---
EXAMINATION: XR chest 2V DATE: 12/20/2019 11:35 INDICATION: COPD, aspiration pneumonia TECHNIQUE: PA and lateral views of the chest are obtained. COMPARISON: 11/07/2019 FINDINGS: The lungs are free of acute opacities. There is no pleural effusion or pneumothorax. The ca rdiomediastinal silhouette is normal. There is moderate thoracic spondylosis. IMPRESSION: 1. No acute cardiopulmonary abnormality. Reviewed, dictated and finalized at location B.
[2019-12-20 11:33] LABS: Basophils Percent Auto 0.3 % (0.2-1.2); Eosinophils Absolute Auto 0.1 K/mm3 (0-0.3); Eosinophils Percent Auto 1.2 % (0-4.4); Hematocrit 41.2 % (37.0-47.0); Hemoglobin 14.1 g/dL (12.0-15.0); Immature Granulocyte Absolute 0.04 K/mm3 (0.00-0.031); Immature Granulocyte Percent A 0.3 % (0-0.5); Lymphocytes Absolute Auto 2.86 K/mm3 (0.9-3.2); Lymphocytes Percent Auto 23.5 % (18.3-44.2); Mean Corpuscular HGB Conc 34.2 g/dl (32-36); Mean Corpuscular Hemoglobin 31.8 pg (26-34); Mean Corpuscular Volume 92.8 fl (80-100); Mean Platelet Volume 12.3 fl (7.4-10.4); Monocytes Absolute Auto 0.5 K/mm3 (0.1-0.6); Monocytes Percent Auto 4.4 % (2.6-8.5); Neutrophils Absolute Auto 8.5 K/mm3 (1.3-6.7); Neutrophils Percent Auto 70.3 % (45.5-73.1); Platelet Count Result 257 k/mm3 (150-375); Red Blood Count 4.44 M/mm3 (4.2-5.4); Red Cell Distribution Width 13.6 % (11.5-14.5); White Blood Count 12.2 K/mm3 (4.5-10.0)
[2019-12-20 11:42] LABS: Hemoglobin A1C 10.7 % (<5.7)
[2019-12-20 12:02] LABS: Creatinine Urine 51.5 mg/dL
[2019-12-20 12:07] LABS: MALB Creatinine Ratio 41.2 mg/g (0-30); Microalbumin Urine Random 21.2 mg/L (0-16.7)
[2019-12-20 12:09] LABS: Alanine Aminotransferase 26 U/L (4-35); Alkaline Phosphatase 190 U/L (38-126); Aspartate Amino Transferase 26 U/L (14-36); Bilirubin,Total 0.4 mg/dL (0.2-1.3); Blood Urea Nitrogen 9 mg/dL (7-17); Calcium 9.3 mg/dL (8.4-10.2); Carbon Dioxide 27 mmol/L (22-30); Chloride 91 mmol/L (98-107); Cholesterol 109 mg/dL (0-200); Estimated Glomerular Filt Rate > 60; Glucose 462 mg/dL (65-105); HDL Direct 32 mg/dL; LDL Cholesterol Direct 42 mg/dL; Magnesium 1.8 mg/dL (1.6-2.3); Potassium 4.2 mmol/L (3.4-5.0); Sodium 129 mmol/L (137-145); Triglycerides 256 mg/dL (<150)
[2019-12-20 12:15] LABS: Total Triiodothyronine (T3) 1.25 NG/ML (0.97-1.69)
[2019-12-20 12:18] LABS: Free T4 Free Thyroxine 1.53 ng/mL (0.78-2.19); Vitamin D 25 Hydroxy 17.4 ng/mL
[2019-12-20 12:55] LABS: Folic Acid 7.5 ng/mL (2.76->20)
[2019-12-20 16:10] LABS: Iron 72 ug/dL (37-170)
[2019-12-20 16:19] LABS: Percent Iron Saturation 26 % (20-50)
== END 2019-12-20 10:41 | disposition home or self-care (01) ==
PROVIDERS: PCP Family Medicine; Visit Provider Nurse Practitioner Family
DX: Z00.00 Encounter for general adult medical examination without abnormal findings (principal); E86.0 Dehydration; E87.5 Hyperkalemia; E11.65 Type 2 diabetes mellitus with hyperglycemia; R53.83 Other fatigue; M62.81 Muscle weakness (generalized); E55.9 Vitamin D deficiency, unspecified; R80.9 Proteinuria, unspecified; E87.2 Acidosis; Z13.0 Encounter for screening for diseases of the blood and blood-forming organs and certain disorders involving the immune mechanism; Z13.6 Encounter for screening for cardiovascular disorders; Z13.220 Encounter for screening for lipoid disorders; Z13.29 Encounter for screening for other suspected endocrine disorder; Z13.1 Encounter for screening for diabetes mellitus
CPT/HCPCS: 36415; 71046; 80053; 80061; 82043; 82306; 82607; 82746; 83036; 83540; 83550; 83735; 84439; 84443; 84480; 85025

== ENCOUNTER 2020-02-14 12:09 | Inpatient (IN) | payer OTHER, SELFPAY ==
[2020-02-14 12:14] VITALS: BP 117/79; PULSE 100; RESP 17; TEMP 36.7; O2SAT 99
[2020-02-14 12:39] LABS: Glucose Point of Care > 500 (65-105)
[2020-02-14 13:11] LABS: Basophils Percent Auto 0.4 % (0.2-1.2); Eosinophils Absolute Auto 0.1 K/mm3 (0-0.3); Eosinophils Percent Auto 0.7 % (0-4.4); Hematocrit 40.5 % (37.0-47.0); Hemoglobin 14.6 g/dL (12.0-15.0); Immature Granulocyte Absolute 0.04 K/mm3 (0.00-0.031); Immature Granulocyte Percent A 0.4 % (0-0.5); Lymphocytes Absolute Auto 3.18 K/mm3 (0.9-3.2); Lymphocytes Percent Auto 28.2 % (18.3-44.2); Mean Corpuscular Volume 88.8 fl (80-100); Mean Platelet Volume 12.4 fl (7.4-10.4); Monocytes Absolute Auto 0.6 K/mm3 (0.1-0.6); Monocytes Percent Auto 5.1 % (2.6-8.5); Neutrophils Absolute Auto 7.4 K/mm3 (1.3-6.7); Neutrophils Percent Auto 65.2 % (45.5-73.1); Platelet Count Result 242 k/mm3 (150-375); Red Blood Count 4.56 M/mm3 (4.2-5.4); Red Cell Distribution Width 12.4 % (11.5-14.5); White Blood Count 11.3 K/mm3 (4.5-10.0)
[2020-02-14 13:16] LABS: Alveolar/Arterial O2 Gradient 22.3 mmHg; Fractional Inspired Oxygen 21 %; HCO3 ABG 23.3 mEq/l (22.0-26.0); Methemoglobin ABG 0.2 %THb (0-1.5); Oxygen Content ABG 18.5 %vol (16.0-22.0); PCO2 ABG 34.4 mmHg (35.0-45.0); PO2 ABG 86.2 mmHg (80.0-100.0); Reduced Hemoglobin 2.9 %THb (0-5.0); Total Hemoglobin 15.4 g/dL (12.0-18.0); pH ABG 7.449 (7.350-7.450)
[2020-02-14 13:18] LABS: Carboxyhemoglobin 11.9 % THb (0-2.0); Device ROOM AIR; Modified Allen's Test Pass; Site Drawn RIGHT RADIAL
--- NOTE | 2020-02-14 13:21 | PC.NURSE ---
pt has had hysterectomy. no urine test obtained
[2020-02-14 13:24] LABS: Alanine Aminotransferase 15 U/L (4-35); Albumin Level 4.1 g/dL (3.5-5.1); Alkaline Phosphatase 224 U/L (38-126); Aspartate Amino Transferase 14 U/L (14-36); Bilirubin,Total 0.3 mg/dL (0.2-1.3); Blood Urea Nitrogen 3 mg/dL (7-17); Calcium 9.2 mg/dL (8.4-10.2); Carbon Dioxide 24 mmol/L (22-30); Chloride 89 mmol/L (98-107); Estimated Glomerular Filt Rate > 60; Glucose 625 mg/dL (65-105); Magnesium 1.6 mg/dL (1.6-2.3); Phosphorus 5.5 mg/dL (2.5-4.5); Potassium 4.2 mmol/L (3.4-5.0); Sodium 125 mmol/L (137-145)
[2020-02-14 13:29] LABS: Beta-Hydroxybutyrate/Acetoacetate 0.13 mmol/L (0.02-0.27)
[2020-02-14] MEDS: SODIUM CHLORIDE 0.9% IV 1,000 ML 999 ML IV CONT ×2 (13:40→15:50)
[2020-02-14 13:42] LABS: Add Urine Microscopic? YES; Appearance Urine Clear (Clear); Bacteria Urine Trace /hpf; Bilirubin Urine Negative (Negative); Blood Urine Negative (Negative); Color Urine Colorless (Yellow); Glucose Urine UA 3+ mg/dL (Negative); Ketones Urine Negative (Negative); Leukocyte Esterase Ur Negative LEU/UL (Negative); Nitrate Urine Negative (Negative); Protein Urine Negative (Negative); RBC Urine 0-2 /hpf (0-2); Specific Grav Ur 1.029 (1.001-1.035); Squamous Epithelial Cell Urine Rare /hpf (Few); Urobilinogen Urine Negative mg/dL (<2.0); WBC Urine 0-3 /hpf
--- NOTE | 2020-02-14 13:55 | ED.RECABL ---
HPI - Recheck/Abnormal Lab/Rx General Chief Complaint: Recheck/Abnormal Lab/Rx Stated Complaint: High BS Time Seen by Provider: 02/14/20 12:51 Source: patient Mode of arrival: ambulatory Limitations: no limitations History of Present Illness HPI narrative: This is a 55 year old female that presents to the ER for high blood sugar over the last couple weeks. Reports polydipsia and polyuria. Reports some nausea and vomiting. Reports some intermittent abdominal pain. Denies any pain currently. Denies fever, chest pain or shortness of breath. Related Data Home Medications Medication Instructions Recorded Confirmed Lantus U-100 Insulin 70 unit SUBCUT BID 11/04/19 11/04/19 Pepcid 20 mg PO BID 11/04/19 11/04/19 Rexulti 4 mg PO DAILY 11/04/19 11/04/19 atorvastatin 80 mg PO HS 11/04/19 11/04/19 bupropion HCl 300 mg PO DAILY 11/04/19 11/04/19 duloxetine [Cymbalta] 60 mg PO BID 11/04/19 11/04/19 fenofibrate 160 mg PO DAILY 11/04/19 11/04/19 glimepiride 4 mg PO BID 11/04/19 11/04/19 lisinopril 10 mg PO DAILY 11/04/19 11/04/19 trazodone 150 mg PO HS 11/04/19 11/04/19 insulin lispro [Humalog KwikPen unit SUBCUT 02/14/20 Insulin] Allergies Allergy/AdvReac Type Severity Reaction Status Date / Time povidone-iodine Allergy Intermediate rash Verified 02/14/20 13:14 Review of Systems Review of Systems: Narrative: CONSTITUTIONAL: Denies fever CARDIOVASCULAR: Denies chest pain RESPIRATORY: Reports cough. Denies dyspnea. GASTROINTESTINAL: Reports abdominal pain, nausea, vomiting GENITOURINARY: Denies dysuria or hematuria. All systems reviewed & are unremarkable except as noted in HPI and below PMFSH Past Medical History Medical History (Updated 02/14/20 @ 15:43 by Britney Thomas PA-C) Ankle fracture, right Anxiety Arthritis Bipolar disorder Chronic back pain COPD (chronic obstructive pulmonary disease) Depression Diabetes Fibromyalgia GERD (gastroesophageal reflux disease) Head ache History of blood transfusion HTN (hypertension) Hyperlipidemia IBS (irritable bowel syndrome) Peripheral neuropathy Pneumonia Post-menopausal Sleep apnea Tubal UTI (urinary tract infection) Surgical History Surgical History (Updated 11/04/19 @ 02:53 by Judith Mcmanus) History of breast biopsy History of cardiac catheterization History of cholecystectomy History of dilatation and curettage History of hysterectomy History of tubal ligation History of umbilical hernia repair Status post ORIF of fracture of ankle Family History Family History (Updated 11/04/19 @ 05:42 by Mahogany Broderick RN) Father Hypertension Grandparent Diabetes mellitus Other Diabetes mellitus Other Family history of heart disease in male family member before age 55 Social History Social History (Updated 11/04/19 @ 02:53 by Judith Mcmanus) Smoking packs per day: 1 Smoking cigarettes per day: 20.0 Years smoked: 30 Smoking pack-years: 30.00 Smoking status: Heavy tobacco smoker Tobacco type: cigarettes Second hand tobacco smoke exposure: Yes Alcohol intake: never Substance use: never Gender identity (if verbalized by the patient): Female Spiritual care concerns: No Agree to blood products: Yes Exam Narrative: Exam Narrative: GENERAL: Well-appearing, well-nourished, and in no acute distress. HEAD: Normocephalic, atraumatic. EYES: EOMI. CHEST: Clear to auscultation. No respiratory distress. No wheezes rales or rhonchi HEART: Regular rate and rhythm. No murmur heard. Normal peripheral pulses. ABDOMEN: Soft, nontender, nondistended, normal active bowel sounds. EXTREMITIES: Normal range of motion. No edema. SKIN: Warm, dry, no rash. NEURO: No focal deficits. Alert and oriented x3. PSYCH: Normal mood and affect \ Course Consultations Consultation #1: Spoke with hospitalist outpatient work-up who accepts admission Date: 02/14/20 Time: 15:45 Vital Signs Vital signs: Vital Signs Temperature 98.1 F
[2020-02-14] MEDS: INSULIN HUMAN REGULAR (*BKC) 100 UNITS/ML 12 UNITS IV PUSH (14:00)
[2020-02-14 14:31] LABS: Hemoglobin A1C 13.1 % (<5.7)
[2020-02-14 14:33] LABS: Lipase 174 U/L (23-300)
[2020-02-14 15:39] LABS: Glucose Point of Care 389 (65-105)
[2020-02-14 15:39] LABS: Glucose Point of Care 471 (65-105)
[2020-02-14 16:25] VITALS: BP 131/86; PULSE 97; RESP 16
[2020-02-14 16:30] VITALS: BP 123/60; PULSE 92; RESP 20; TEMP 36.7; O2SAT 97; BMI 28.1
[2020-02-14 16:35] LABS: Glucose Point of Care 446 (65-105)
--- NOTE | 2020-02-14 16:42 | ADMGEN ---
This patient, Jeanette Peres, was admitted to 2 Medical Room 243-01. Patient/family oriented to hospital policies and general routines including ID bracelet, bed and alarms, visiting hours, pain management, procedures, bathroom and other care routines, personal items, smoking policy, room service/diet, and visiting hours. Valuables list has been completed. Information on how to activate the Rapid Response Team has been discussed. Patient/Family are encouraged to report perceived risks to care and to ask questions if they do not understand what they are told or what they should do.
[2020-02-14 16:54] LABS: Glucose Point of Care 409 (65-105)
[2020-02-14] MEDS: INSULIN ASPART (*BKC) 100 UNITS/ML 10 UNITS SUB-Q (17:30)
[2020-02-14] MEDS: SODIUM CHLORIDE 0.9% IV 1,000 ML 125 ML IV CONT (17:31)
[2020-02-14] MEDS: NICOTINE (*PBKC) 21 MG PATCH 1 PATCH TRANSDERM (18:18)
--- NOTE | 2020-02-14 18:45 | PM.IMHP ---
H&P: HPI History of Present Illness Chief complaint: Hyperglycemia. Narrative: Jeanette Peres is a 55-year-old female smoker with historically poorly controlled insulin-dependent diabetes with a hemoglobin A1c of 13.1% today, hypertension, hyperlipidemia, COPD, and sleep apnea who presented to the emergency department earlier today via private vehicle for evaluation of hyperglycemia. She had a routine doctors visit yesterday and had labs drawn at that time. Today she received a phone call telling her to come to the emergency department as her glucose was reportedly very high. This was unbeknownst to her if she does not check her glucose at home. Her random glucose on arrival to the emergency department with 625, and she is being admitted for hydration and better glucose control. At the time my evaluation, she complains of anxiety because she wants to have a cigarette (she has a 3 pack-a-day smoker). The only complaint she has at the time my evaluation is of a boil that is on her right buttock that she wants me to open. It has been present for several days and is a bit sore when she is sitting on it. She has not had fever, chills, or sweats. No cold or flu symptoms. She denies nausea and vomiting at this time, but did have some emesis couple of days ago. No diarrhea or dysuria. Review of Systems Review of Systems: Narrative: Twelve systems were reviewed with pertinent positives and negatives as per HPI. No recent cold or flu symptoms. She denies cough and shortness of breath. No sick contacts. She has a chronic smoker's cough. She denies constipation. In fact, she has loose stools frequently that she blames on irritable bowel syndrome. She denies blurry vision but reports polydipsia and polyuria. She does suffer from neuropathy in her legs, feet, arms, and hands. Except as documented, all other systems were reviewed and are negative. [facility] Past Medical History Medical History (Updated 02/14/20 @ 21:12 by Lisy Sanchez PA-C) Bipolar disorder Chronic back pain Chronic obstructive pulmonary disease Depression with anxiety Diabetic peripheral neuropathy Essential hypertension Fibromyalgia Fracture Right ankle with chronic deformity. Gastroesophageal reflux disease History of blood transfusion Hyperlipidemia Insulin dependent diabetes mellitus Hemoglobin A1c was 13.1% on 02/14/2020. Irritable bowel syndrome Obstructive sleep apnea Osteoarthritis Pneumonia Post-menopausal Tobacco dependence Tubal Urinary tract infection Surgical History Surgical History History of breast biopsy History of cardiac catheterization History of cholecystectomy History of dilatation and curettage History of hysterectomy History of tubal ligation History of umbilical hernia repair Status post ORIF of fracture of ankle Family History Family History Father Hypertension Grandparent Diabetes mellitus Other Diabetes mellitus Other Family history of heart disease in male family member before age 55 Social History Social History (Updated 02/14/20 @ 21:05 by Lisy Sanchez PA-C) Social History: The patient is and lives in [place] with her . She smoked 1.5 packs of cigarettes per day for many years, but for the last 6 months she has been smoking up to 3 packs of cigarettes per day due to stress. No excessive alcohol use. She denies illicit drug use. She designates her Will as her surrogate decision maker and she wishes to be a full code. Additional smoking assessment comments: Spiritual care concerns: No Agree to blood products: Yes Meds Home Medications and Allergies Home Medications Medication Instructions Recorded Confirmed Type Lantus U-100 Insulin 60 unit SUBCUT BID 11/04/19 02/14/20 History Rexulti 4 mg PO DAILY 11/04/19 02/14/20 History duloxe
[2020-02-14] MEDS: INSULIN GLARGINE (*BKC) 100 UNITS/ML 60 UNITS SUB-Q (21:13)
[2020-02-14] MEDS: DULOXETINE 60 MG CAPSULE.DR PO (21:13)
[2020-02-14 21:39] VITALS: BP 108/62; PULSE 83; RESP 16; TEMP 36.7; O2SAT 99
[2020-02-14] MEDS: CLINDAMYCIN HCL 150 MG CAP 450 MG PO (22:43)
[2020-02-14] MEDS: LORAZEPAM 0.5 MG TABLET PO (22:43)
[2020-02-15] VITALS (11 sets, daily range): BP systolic 109–156; BP diastolic 62–90; PULSE 62–88; RESP 12–24; TEMP 36–36.9; O2SAT 97–100; BMI 28.1
[2020-02-15] MEDS: SODIUM CHLORIDE 0.9% IV 1,000 ML 125 ML IV CONT ×2 (02:41→14:25)
[2020-02-15 03:26] LABS: Glucose Point of Care 313 (65-105)
[2020-02-15] MEDS: CLINDAMYCIN HCL 150 MG CAP 450 MG PO (05:14)
[2020-02-15 06:11] LABS: Hematocrit 36.4 % (37.0-47.0); Hemoglobin 12.8 g/dL (12.0-15.0); Mean Corpuscular HGB Conc 35.2 g/dl (32-36); Mean Platelet Volume 12.5 fl (7.4-10.4); Platelet Count Result 207 k/mm3 (150-375); Red Cell Distribution Width 12.5 % (11.5-14.5); White Blood Count 10.7 K/mm3 (4.5-10.0)
[2020-02-15 06:38] LABS: Blood Urea Nitrogen 6 mg/dL (7-17); Calcium 8.6 mg/dL (8.4-10.2); Carbon Dioxide 25 mmol/L (22-30); Chloride 103 mmol/L (98-107); Estimated CRCL calculation 155 ml/min; Estimated Glomerular Filt Rate > 60; Glucose 240 mg/dL (65-105); Magnesium 1.6 mg/dL (1.6-2.3); Phosphorus 3.8 mg/dL (2.5-4.5); Potassium 3.8 mmol/L (3.4-5.0); Sodium 132 mmol/L (137-145)
--- NOTE | 2020-02-15 07:51 | PM.CNGS ---
Assessment and Plan Assessment and plan (1) Abscess of buttock: Code(s): L02.31 - Cutaneous abscess of buttock Status: Acute Assessment and Plan: will go ahead with incision and drainage of the abscess in the operating room under anesthesia. I explained the procedure to the patient. She understands she will have an open wound that were acquired dressing changes following the procedure. This does not appear to be a complicated abscess. (2) Severe hyperglycemia due to diabetes mellitus: Code(s): E11.65 - Type 2 diabetes mellitus with hyperglycemia Status: Acute (3) Insulin dependent diabetes mellitus: Status: Chronic (4) Chronic obstructive pulmonary disease: Code(s): J44.9 - Chronic obstructive pulmonary disease, unspecified Status: Chronic (5) Tobacco dependence: Code(s): F17.200 - Nicotine dependence, unspecified, uncomplicated Status: Chronic History of Present Illness Consult details Consult date: 02/15/20 Reason for consult: other ( right buttocks abscess) Narrative: patient is a 55-year-old woman who is a poorly controlled diabetic. She was admitted with diabetes out of control and also noted to have an abscess in the right upper buttocks. She tells me she has had several of these over the years. She does not do any injections in this area. She does not have any idea why this abscess developed other than she has had them happen multiple times. She is seen now in consultation regarding her right buttocks abscess. Review of Systems Review of Systems: All systems reviewed & are unremarkable except as noted in HPI and below ( HPI) [facility] Past Medical History Medical History (Updated 02/15/20 @ 07:55 by Alex Foley MD) Bipolar disorder Chronic back pain Chronic obstructive pulmonary disease Depression with anxiety Diabetic peripheral neuropathy Essential hypertension Fibromyalgia Fracture Right ankle with chronic deformity. Gastroesophageal reflux disease History of blood transfusion Hyperlipidemia Insulin dependent diabetes mellitus Hemoglobin A1c was 13.1% on 02/14/2020. Irritable bowel syndrome Obstructive sleep apnea Osteoarthritis Pneumonia Post-menopausal Tobacco dependence Tubal Urinary tract infection Surgical History Surgical History History of breast biopsy History of cardiac catheterization History of cholecystectomy History of dilatation and curettage History of hysterectomy History of tubal ligation History of umbilical hernia repair Status post ORIF of fracture of ankle Family History Family History Father Hypertension Grandparent Diabetes mellitus Other Diabetes mellitus Other Family history of heart disease in male family member before age 55 Social History Social History (Updated 02/14/20 @ 21:05 by Lisy Sanchez PA-C) Social History: The patient is and lives in [place] with her . She smoked 1.5 packs of cigarettes per day for many years, but for the last 6 months she has been smoking up to 3 packs of cigarettes per day due to stress. No excessive alcohol use. She denies illicit drug use. She designates her Will as her surrogate decision maker and she wishes to be a full code. Additional smoking assessment comments: Spiritual care concerns: No Agree to blood products: Yes Meds Home Medications and Allergies Home Medications Medication Instructions Recorded Confirmed Type Lantus U-100 Insulin 60 unit SUBCUT BID 11/04/19 02/14/20 History Rexulti 4 mg PO DAILY 11/04/19 02/14/20 History duloxetine [Cymbalta] 60 mg PO BID 11/04/19 02/14/20 History fenofibrate 160 mg PO DAILY 11/04/19 02/14/20 History glimepiride 4 mg PO BID 11/04/19 02/14/20 History trazodone 150 mg PO HS PRN 11/04/19 02/14/20 History atorvastatin 80 mg PO QP
[2020-02-15 07:55] LABS: Glucose Point of Care 221 (65-105)
[2020-02-15] MEDS: DULOXETINE 60 MG CAPSULE.DR PO ×2 (08:18→16:49)
[2020-02-15] MEDS: buPROPion HCL XL (24 HR) 150 MG TABCR 300 MG PO (08:18)
--- NOTE | 2020-02-15 09:31 | P.PNIM_ITS ---
Progress Note: A&P Assessment and Plan (1) Severe hyperglycemia due to diabetes mellitus: Code(s): E11.65 - Type 2 diabetes mellitus with hyperglycemia Status: Acute Assessment and Plan: Patient states compliance with her insulin regimen at home but admits she does not check her glucose. BGL in 200s this morning; NPO for procedure this morning. BGL improved with IV insulin upon arrival * Continue SSI and 65 U Long acting BID * Monitor glucose levels * Discussed importance of checking BGL regularly at home (2) Hyponatremia: Code(s): E87.1 - Hypo-osmolality and hyponatremia Status: Acute Assessment and Plan: This is pseudohyponatremia due to hyperglycemia. Na 132 this morning; improved * Monitor daily (3) Boil of buttock: Code(s): L02.32 - Furuncle of buttock Status: Acute Assessment and Plan: Given poorly controlled DM and extensive tobacco use, Surgery consulted and will be taking her for I&D this afternoon. * Surgery consult is appreciated for management and follow-up. * Will continue p.o. clindamycin more now; likely complete 10-14 day course given poorly controlled DM * Await further recommendations from Surgery * Encourage Sitz baths. (4) Essential hypertension: Code(s): I10 - Essential (primary) hypertension Status: Acute Assessment and Plan: Blood pressures reviewed and they are well controlled. BP 130s sys this morning * Continue antihypertensives and monitor daily. (5) Insulin dependent diabetes mellitus: Status: Chronic Assessment and Plan: Poorly controlled with a hemoglobin A1c today of 13.1%. Uncertain if she is fully compliant with diet or medications. * Continue sitagliptin and glimepiride. * Continue with increased long acting with 65 units b.i.d.; likely continue this on discharge * She does give mealtime boluses, reportedly, however seems unsure as to how much she typically uses. * Will monitor her insulin intake and revisit mealtime boluses so she is receiving appropriate amounts. * Continue sliding scale insulin, Accu-Cheks, and hypoglycemic protocol. * Diabetic diet once okay with Surgical standpoint (6) Chronic obstructive pulmonary disease: Code(s): J44.9 - Chronic obstructive pulmonary disease, unspecified Status: Chronic Assessment and Plan: She is not on maintenance inhalers. * No acute issues at this time. (7) Bipolar disorder: Code(s): F31.9 - Bipolar disorder, unspecified Status: Acute Assessment and Plan: No acute issues * Continue home medication to include bupropion, duloxetine, and Rexulti. (8) Tobacco dependence: Code(s): F17.200 - Nicotine dependence, unspecified, uncomplicated Status: Chronic Assessment and Plan: Smoking cessation is imperative and was discussed. She does not seem motivated, unfortunately. * Nicotine patch available. Subjective Date/time seen: 02/15/20 09:31 Interval history: Patient is a 55 yo F smoker (3 ppd) with historically poorly controlled insulin-dependent diabetes with a hemoglobin A1c of 13.1% during this stay, hypertension, hyperlipidemia, COPD, and sleep apnea
--- NOTE | 2020-02-15 09:31 | PM.IMPN ---
Progress Note: A&P Assessment and Plan (1) Severe hyperglycemia due to diabetes mellitus: Code(s): E11.65 - Type 2 diabetes mellitus with hyperglycemia Status: Acute Assessment and Plan: Patient states compliance with her insulin regimen at home but admits she does not check her glucose. BGL in 200s this morning; NPO for procedure this morning. BGL improved with IV insulin upon arrival Continue SSI and 65 U Long acting BID Monitor glucose levels Discussed importance of checking BGL regularly at home (2) Hyponatremia: Code(s): E87.1 - Hypo-osmolality and hyponatremia Status: Acute Assessment and Plan: This is pseudohyponatremia due to hyperglycemia. Na 132 this morning; improved Monitor daily (3) Boil of buttock: Code(s): L02.32 - Furuncle of buttock Status: Acute Assessment and Plan: Given poorly controlled DM and extensive tobacco use, Surgery consulted and will be taking her for I&D this afternoon. Surgery consult is appreciated for management and follow-up. Will continue p.o. clindamycin more now; likely complete 10-14 day course given poorly controlled DM Await further recommendations from Surgery Encourage Sitz baths. (4) Essential hypertension: Code(s): I10 - Essential (primary) hypertension Status: Acute Assessment and Plan: Blood pressures reviewed and they are well controlled. BP 130s sys this morning Continue antihypertensives and monitor daily. (5) Insulin dependent diabetes mellitus: Status: Chronic Assessment and Plan: Poorly controlled with a hemoglobin A1c today of 13.1%. Uncertain if she is fully compliant with diet or medications. Continue sitagliptin and glimepiride. Continue with increased long acting with 65 units b.i.d.; likely continue this on discharge She does give mealtime boluses, reportedly, however seems unsure as to how much she typically uses. Will monitor her insulin intake and revisit mealtime boluses so she is receiving appropriate amounts. Continue sliding scale insulin, Accu-Cheks, and hypoglycemic protocol. Diabetic diet once okay with Surgical standpoint (6) Chronic obstructive pulmonary disease: Code(s): J44.9 - Chronic obstructive pulmonary disease, unspecified Status: Chronic Assessment and Plan: She is not on maintenance inhalers. No acute issues at this time. (7) Bipolar disorder: Code(s): F31.9 - Bipolar disorder, unspecified Status: Acute Assessment and Plan: No acute issues Continue home medication to include bupropion, duloxetine, and Rexulti. (8) Tobacco dependence: Code(s): F17.200 - Nicotine dependence, unspecified, uncomplicated Status: Chronic Assessment and Plan: Smoking cessation is imperative and was discussed. She does not seem motivated, unfortunately. Nicotine patch available. Subjective Date/time seen: 02/15/20 09:31 Interval history: Patient is a 55 yo F smoker (3 ppd) with historically poorly controlled insulin-dependent diabetes with a hemoglobin A1c of 13.1% during this stay, hypertension, hyperlipidemia, COPD, and sleep apnea who is here for hyperglycemia and I&D of a right buttock boil. Patient states she is doing okay today. She is tired as she did not get much sleep last night due to anxiety. She has an unchanged chronic cough. Otherwise has no other complaints. Denies f/c/s, headaches, dizziness, lightheadedness, changes in v/h, blurred vision, cp/palpitations, sob, n/v/d/c, abd pain, buttock pain from boil,
--- NOTE | 2020-02-15 11:00 | PC.NURSE ---
To OR via stretcher with OR staff.
[2020-02-15 11:02] LABS: Glucose Point of Care 264 (65-105)
--- NOTE | 2020-02-15 11:28 | WPDANESEPPF ---
Anes - Initial Pre Proc Eval Procedure: Operation Date: 02/15/20 12:00 Proposed Procedures p INCISION AND DRAINAGE RIGHT BUTTOCK ABSCESS - Alex Foley MD Date/Time: 02/15/20 11:28 Surgeon: Nima Conteh PA-C Pre Op Diagnosis: Hyperglycemia. Patient Data Age: 55 Gender: F Height: 5 ft 9 in Weight: 86.5 kg Last Vital Signs Temp 36.7 C 02/15/20 07:38 Pulse 82 02/15/20 07:38 Resp 15 02/15/20 07:38 BP 132/81 02/15/20 07:38 Pulse Ox 100 02/15/20 07:38 Allergies Allergy/AdvReac Type Severity Reaction Status Date / Time povidone-iodine Allergy Intermediate rash Verified 02/14/20 16:47 Home Medications Medication Instructions Recorded Confirmed Type Lantus U-100 Insulin 60 unit SUBCUT BID 11/04/19 02/14/20 History Rexulti 4 mg PO DAILY 11/04/19 02/14/20 History duloxetine [Cymbalta] 60 mg PO BID 11/04/19 02/14/20 History fenofibrate 160 mg PO DAILY 11/04/19 02/14/20 History glimepiride 4 mg PO BID 11/04/19 02/14/20 History trazodone 150 mg PO HS PRN 11/04/19 02/14/20 History atorvastatin 80 mg PO QPM 02/14/20 02/14/20 History bupropion HCl 300 mg PO DAILY 02/14/20 02/14/20 History ergocalciferol (vitamin D2) 50,000 unit PO WEEKLY 02/14/20 02/14/20 History [Vitamin D2] insulin lispro [Humalog KwikPen See Rx Instructions .ROUTE .COMPLEX 02/14/20 02/14/20 History Insulin] lisinopril 10 mg PO DAILY 02/14/20 02/14/20 History sitagliptin [Januvia] 100 mg PO DAILY 02/14/20 02/14/20 History Laboratory Tests 02/14/20 02/14/20 02/14/20 12:36 13:05 13:05 WBC 11.3 K/mm3 H K/mm3 (4.5-10.0) RBC 4.56 M/mm3 M/mm3 (4.2-5.4) Hgb 14.6 g/dL g/dL (12.0-15.0) Hct 40.5 % % (37.0-47.0) MCV 88.8 fl fl (80-100) MCH 32.0 pg pg (26-34) MCHC 36.0 g/dl g/dl (32-36) RDW 12.4 % % (11.5-14.5) Plt Count 242 k/mm3 k/mm3 (150-375) MPV 12.4 fl H fl (7.4-10.4) Immature Gran % (Auto) 0.4 % % (0-0.5) Neut % (Auto) 65.2 % % (45.5-73.1) Lymph % (Auto) 28.2 % % (18.3-44.2) [place] % (Auto) 5.1 % % (2.6-8.5) Eos % (Auto) 0.7 % % (0-4.4) Baso % (Auto) 0.4 % % (0.2-1.2) Lymph # (Auto) 3.18 K/mm3 K/mm3 (0.9-3.2) [place] # (Auto) 0.6 K/mm3 K/mm3 (0.1-0.6) Eos # (Auto) 0.1 K/mm3 K/mm3 (0-0.3) Baso # (Auto) 0.0 K/mm3 K/mm3 (0.0-0.1) Abs Immat Gran (auto) 0.04 K/mm3 H K/mm3 (0.00-0.031) Absolute Neuts (auto) 7.4 K/mm3 H K/mm3 (1.3-6.7) Absolute Nucleated RBC 0.0 K/mm3 K/mm3 (0.0-0.012) Nucleated RBC % 0.0 % % (0.0-0.2) Puncture Site ABG pH ABG pCO2 ABG pO2 ABG PO2/FiO2 Ratio ABG HCO3 ABG O2 Saturation ABG O2 Content ABG Base Excess A-a Gradient Oxyhemoglobin Carboxyhemoglobin Methemoglobin Reduced Hemoglobin Total Hemoglobin O2 Delivery Device O2 Liters/Min FiO2 Sodium 125 mmol/L L mmol/L (137-145) Potassium 4.2 mmol/L mmol/L (3.4-5.0) Chloride 89 mmol/L L mmol/L (98-107) Carbon Dioxide 24 mmol/L mmol/L (22-30) BUN 3 mg/dL L D mg/dL (7-17) Creatinine 0.50 mg/dL L mg/dL (0.7-1.0) Estim Creat Clear Calc Not Reportable Estimated GFR > 60 (59 - ) Glucose 625 mg/dL H* mg/dL (65-105) POC Capillary Glucose > 500 mg/dl mg/dl (65-105) Hemoglobin A1c Calcium 9.2 mg/dL mg/dL (8.4-10.2) Phosphorus 5.5 mg/dL H mg/dL (2.5-4.5) Magnesium 1.6 mg/dL mg/dL (1.6-2.3) Total Bilirubin 0.3 mg/dL mg/dL (0.2-1.3) AST 14 U/L U/L (14-36) ALT 15 U/L U/L (4
[2020-02-15] MEDS: LACTATED RINGERS 1,000 ML 30 ML IV CONT (11:30)
[2020-02-15 11:39] LABS: Glucose Point of Care 235 (65-105)
[2020-02-15] MEDS: ceFAZolin 2 GM/D5W 50 ML 2 GM/50 ML BAG IVPB (11:54)
--- NOTE | 2020-02-15 12:22 | PM.PROC ---
Procedure Note - Detailed Date of procedure: 02/15/20 Pre-op diagnosis: Right buttocks abscess Right buttocks abscess Post-op diagnosis: same Procedure performed: Incision and drainage of right buttocks abscess Description of procedure: The patient was placed in left lateral decubitus position. The right upper lateral buttocks was exposed, prepped and draped. The patient was given IV sedation. Incision was made down the center of the abscess. Abundant purulent fluid drained. Some necrotic skin over the abscess was excised leaving an opening over the abscess. The opening would keep the abscess well drained. I probed the interior the abscess and found no loculations or other problems. The wound was packed with 1 in iodoform Nu Gauze. Bulky fluffs and ABDs were used to dress the wound. Medipore tape was used. Patient tolerated the procedure well. Anesthesia: MAC Surgeon: Alex Foley MD Certified Medical Asst: Gabriel NAVA Estimated blood loss (mL): 5 Drains: No Packing: Yes (1 in iodoform Nu Gauze) Pathology: none sent Complications: None Condition: stable Disposition: PACU Findings: Superficial but large right buttocks abscess
--- NOTE | 2020-02-15 12:45 | SUR.PREOP ---
1135 Pts blood sugar is 235 Dr Sánchez was notified He stated to retake it in recovery
--- NOTE | 2020-02-15 13:00 | PC.NURSE ---
Patient returning from OR. Lantus 65 units held this a.m. due to NPO status. Called and discussed with Nima NÚÑEZ. One time order received for Lantus 20 units SQ today.
--- NOTE | 2020-02-15 13:08 | SUR.PHASEI ---
1305- pt blood sugar 238. reviewed with dr. wilson. pt on sliding scale on [address] [place] [address]. he stated to have pt treated from sliding scale on floor. pt leaving pacu to go back to 243. updated ebcky hernandez on [address] [place] [address].
[2020-02-15 13:11] LABS: Glucose Point of Care 238 (65-105)
--- NOTE | 2020-02-15 13:20 | PC.NURSE ---
Patient returned from OR via stretcher with OR staff. Settled into bed. No distress noted. No c/o pain. VSS. Large bulky dressing to right buttock D/I. No drainage noted.
[2020-02-15] MEDS: NICOTINE (*PBKC) 21 MG PATCH 1 PATCH TRANSDERM (13:43)
[2020-02-15] MEDS: lisinopriL 10 MG TABLET PO (13:43)
[2020-02-15] MEDS: FENOFIBRATE 160 MG TABLET PO (13:43)
[2020-02-15] MEDS: INSULIN ASPART (*BKC) 100 UNITS/ML SUB-Q (13:47)
[2020-02-15] MEDS: INSULIN GLARGINE (*BKC) 100 UNITS/ML 20 UNITS SUB-Q (13:47)
[2020-02-15 13:58] LABS: Glucose Point of Care 222 (65-105)
--- NOTE | 2020-02-15 14:20 | PC.NURSE ---
Discussed Flor with patient and requested that she have her bring it in from home. Patient states she is fine without it for a day and will have him bring it in tomorrow if she is still here.
[2020-02-15] MEDS: GLIMEPIRIDE 2 MG TABLET 4 MG PO (16:48)
[2020-02-15 16:52] LABS: Glucose Point of Care 198 (65-105)
[2020-02-15] MEDS: ATORVASTATIN 40 MG TABLET 80 MG PO (17:43)
[2020-02-15] MEDS: INSULIN GLARGINE (*BKC) 100 UNITS/ML 65 UNITS SUB-Q (20:42)
[2020-02-15] MEDS: LORAZEPAM 0.5 MG TABLET PO (21:45)
[2020-02-15] MEDS: SODIUM CHLORIDE 0.9% IV 1,000 ML 75 ML IV CONT (22:59)
[2020-02-16 02:00] VITALS: BP 121/74; PULSE 90; RESP 16; TEMP 36.7; O2SAT 100
[2020-02-16 03:22] LABS: Glucose Point of Care 151 (65-105)
[2020-02-16 05:37] LABS: Hematocrit 35.8 % (37.0-47.0); Hemoglobin 12.1 g/dL (12.0-15.0); Mean Corpuscular HGB Conc 33.8 g/dl (32-36); Mean Corpuscular Hemoglobin 31.8 pg (26-34); Mean Platelet Volume 12.2 fl (7.4-10.4); Platelet Count Result 204 k/mm3 (150-375); Red Blood Count 3.81 M/mm3 (4.2-5.4); White Blood Count 10.7 K/mm3 (4.5-10.0)
[2020-02-16 05:47] LABS: Blood Urea Nitrogen 4 mg/dL (7-17); Calcium 8.2 mg/dL (8.4-10.2); Carbon Dioxide 24 mmol/L (22-30); Chloride 103 mmol/L (98-107); Estimated CRCL calculation 127 ml/min; Estimated Glomerular Filt Rate > 60; Glucose 81 mg/dL (65-105); Magnesium 1.7 mg/dL (1.6-2.3); Potassium 3.4 mmol/L (3.4-5.0); Sodium 132 mmol/L (137-145)
[2020-02-16 06:00] VITALS: BP 118/72; PULSE 83; RESP 18; TEMP 36.6; O2SAT 99
[2020-02-16 07:02] LABS: Glucose Point of Care 127 (65-105)
--- NOTE | 2020-02-16 07:43 | WPDANESPN ---
Anes - Prog Note Post-Op Date/Time: 02/16/20 07:43 Cardiovascular status: normal Respiratory status: normal Airway patency: baseline Mental status: baseline Post-Op hydration status: normal Vital Signs: Last Vital Signs Temp 36.6 C 02/16/20 06:00 Pulse 83 02/16/20 06:00 Resp 18 02/16/20 06:00 BP 118/72 02/16/20 06:00 Pulse Ox 99 02/16/20 06:00 I/O: Intake & Output 02/15/20 02/15/20 02/16/20 15:59 23:59 07:59 Intake Total 1490 1790 1480 Balance 1490 1790 1480 Laboratory Tests 02/16/20 04:56 02/16/20 04:56 02/15/20 02/15/20 02/15/20 05:18 10:38 11:37 WBC RBC Hgb Hct MCV MCH MCHC RDW Plt Count MPV Sodium Potassium Chloride Carbon Dioxide BUN Creatinine Estim Creat Clear Calc Estimated GFR Glucose POC Capillary Glucose 221 H 264 H 235 H Calcium Magnesium 02/15/20 02/15/20 02/15/20 12:27 13:46 16:47 WBC RBC Hgb Hct MCV MCH MCHC RDW Plt Count MPV Sodium Potassium Chloride Carbon Dioxide BUN Creatinine Estim Creat Clear Calc Estimated GFR Glucose POC Capillary Glucose 238 H 222 H 198 H Calcium Magnesium 02/15/20 02/16/20 02/16/20 20:40 04:56 04:56 WBC 10.7 H RBC 3.81 L Hgb 12.1 Hct 35.8 L MCV 94.0 MCH 31.8 MCHC 33.8 RDW 13.0 Plt Count 204 MPV 12.2 H Sodium 132 L Potassium 3.4 Chloride 103 Carbon Dioxide 24 BUN 4 L Creatinine 0.50 L Estim Creat Clear Calc 127 Estimated GFR > 60 Glucose 81 POC Capillary Glucose 151 H Calcium 8.2 L Magnesium 1.7 02/16/20 06:59 WBC RBC Hgb Hct MCV MCH MCHC RDW Plt Count MPV Sodium Potassium Chloride Carbon Dioxide BUN Creatinine Estim Creat Clear Calc Estimated GFR Glucose POC Capillary Glucose 127 H Calcium Magnesium Post-procedural complaints: none Patient Feedback: Patient satisfied with anesthetic care.
[2020-02-16] MEDS: POTASSIUM CHLORIDE 20 MEQ TABLET 40 MEQ PO (08:36)
[2020-02-16] MEDS: lisinopriL 10 MG TABLET PO (08:37)
[2020-02-16] MEDS: NICOTINE (*PBKC) 21 MG PATCH 1 PATCH TRANSDERM (08:37)
[2020-02-16] MEDS: buPROPion HCL XL (24 HR) 150 MG TABCR 300 MG PO (08:37)
[2020-02-16] MEDS: DULOXETINE 60 MG CAPSULE.DR PO (08:37)
[2020-02-16] MEDS: ENOXAPARIN 40 MG/0.4 ML SYRINGE SUB-Q (08:37)
[2020-02-16] MEDS: GLIMEPIRIDE 2 MG TABLET 4 MG PO (08:37)
[2020-02-16] MEDS: FENOFIBRATE 160 MG TABLET PO (08:37)
[2020-02-16] MEDS: INSULIN GLARGINE (*BKC) 100 UNITS/ML 65 UNITS SUB-Q (08:38)
--- NOTE | 2020-02-16 08:53 | PM.PNGS ---
Progress Note: A&P Assessment and Plan (1) Abscess of buttock: Code(s): L02.31 - Cutaneous abscess of buttock Status: Acute Assessment and Plan: Abscess adequately drained. Okay to discharge from my perspective. Patient should shower daily and reapply a dry gauze dressing to the wound. I will see her in the office in approximately 10 days. No oral antibiotics are needed. Subjective Subjective Date/Time Seen: 02/16/20 08:53 Post Op day: 1 Patient reports: feels better and pain is less Exam Skin: Wounds: wounds noted (Right buttocks abscess wound clean dry, no bleeding no purulence.) Objective Data Vital Signs Vital Signs: Vital Signs - 24 hr 02/15/20 11:15 02/15/20 12:25 02/15/20 12:53 Temperature 36.4 C L 36.9 C Pulse Rate 79 81 82 Respiratory Rate 19 24 H 19 Blood Pressure 119/80 126/77 113/86 Pulse Oximetry 99 100 100 02/15/20 13:03 02/15/20 13:29 02/15/20 13:59 Temperature 36.6 C 36.6 C Pulse Rate 75 73 78 Respiratory Rate 19 16 16 Blood Pressure 156/85 H 133/79 140/90 Pulse Oximetry 97 98 99 02/15/20 14:30 02/15/20 15:48 02/15/20 22:00 Temperature 36.9 C 36.8 C 36.0 C L Pulse Rate 85 83 88 Respiratory Rate 20 24 H 18 Blood Pressure 132/82 148/88 H 109/62 Pulse Oximetry 100 100 97 02/16/20 02:00 02/16/20 06:00 Temperature 36.7 C 36.6 C Pulse Rate 90 83 Respiratory Rate 16 18 Blood Pressure 121/74 118/72 Pulse Oximetry 100 99 Intake/Output Intake/Output: Intake & Output 02/13/20 02/14/20 02/15/20 02/16/20 23:59 23:59 23:59 23:59 Intake Total 1595 4830 1480 Balance 1595 4830 1480 Meds/Results Medications: Active Medications Generic Name Dose Route Start Last Admin Trade Name Freq PRN Reason Stop Dose Admin Hydrocodone Bitart/Acetaminophen 1 tab 02/15/20 13:06 02/16/20 03:36 [place] 5-325 Mg PO 1 tab Q4H PRN Administration Pain Rated 4-6 Atorvastatin Calcium 80 mg 02/15/20 18:00 02/15/20 17:43 Lipitor PO 80 mg QPM KOBE Administration Bupropion HCl 300 mg 02/15/20 09:00 02/16/20 08:37 Wellbutrin Xl (24 Hr) PO 300 mg DAILY KOBE Administration Dextrose 12.5 gm 02/14/20 17:21 Dextrose 50% Syringe IV PUSH PRN PRN Hypoglycemia Protocol Duloxetine HCl 60 mg 02/14/20 21:00 02/16/20 08:37 Cymbalta PO 60 mg BID KOBE Administration Enoxaparin Sodium 40 mg 02/16/20 09:00 02/16/20 08:37 Lovenox SUB-Q 40 mg DAILY KOBE Administration Fenofibrate 160 mg 02/15/20 09:00 02/16/20 08:37 Fenofibrate PO 160 mg DAILY KOBE Administration Glimepiride 4 mg 02/15/20 08:00 02/16/20 08:37 Amaryl PO 4 mg BIDWM KOBE Administration Glucagon 1 mg 02/14/20 17:21 Glucagon For Inj IM PRN PRN Hypoglycemia Protocol Glucose 15 gm 02/14/20 17:21 Glutose 15 PO PRN PRN Hypoglycemia Protocol Sodium Chloride 1,000 mls @ 75 mls/hr 02/14/20 15:50 02/16/20 06:11 Normal Saline Iv IV CONT 75 mls/hr .[id number] KOBE Infusion Dextrose 1,000 mls @ 100 mls/hr 02/14/20 17:21 Dextrose 5% 1,000 Ml IVPB PRN PRN Hypoglycemia Protocol Ibuprofen 400 mg 02/15/20 13:06 Motrin PO Q6H PRN Pain Rated 1-3 Insulin Aspart 4 - 8 units 02/15/20 08:00 02/16/20 08:03 Novolog SUB-Q Not Given TIDWM [facility] Protocol Insulin Glargine 65 units 02/15/20 09:00 02/16/20 08:38 Lantus SUB-Q 65 units Q12HR KOBE Administration Lisinopril 10 mg 02/15/20 09:00 02/16/20 08:37 Prinivil PO 10 mg DAILY KOBE Administration Morphine Sulfate 2 mg 02/15/20 13:06 Morphine Sulfate Inj IV PUSH Q2H PRN Pain Rated 7-10 Nicotine 1 patch 02/14/20 17:25 02/16/20 08:37 Nicoderm Cq 21 Mg TRANSDERM 1 patch QAM KOBE Administration Non-Formulary Medication 4 mg 02/15/20 09:00 Brexpiprazole [Rexulti] PO 03/16/20 09:01 DAILY KOBE Ondansetron HCl 4 mg 02/15/20 13:06 Zofran I
--- NOTE | 2020-02-16 10:54 | P.DS_ITS ---
DS: Admitting Diagnosis Admitting Diagnosis Admitting Diagnosis: Type 2 diabetes mellitus with hyperglycemia DS: Discharge Diagnosis Discharge Diagnosis (1) Severe hyperglycemia due to diabetes mellitus: Code(s): E11.65 - Type 2 diabetes mellitus with hyperglycemia Status: Acute Assessment and Plan: Patient states compliance with her insulin regimen at home but admits she does not check her glucose. BGL in 80-120s this morning * Will discharge on 65 U Long acting BID and home SSI * Discussed importance of checking BGL regularly at home again today * F/u with PCP (2) Hyponatremia: Code(s): E87.1 - Hypo-osmolality and hyponatremia Status: Acute Assessment and Plan: This is pseudohyponatremia due to hyperglycemia. Na 132 this morning; stable * f/u PCP (3) Boil of buttock: Code(s): L02.32 - Furuncle of buttock Status: Acute Assessment and Plan: Given poorly controlled DM and extensive tobacco use, Surgery consulted and s/p I&D POD1. * Surgery consult is appreciated for management and follow-up. * Okay for discharge from Surgical standpoint; recommended no antibiotics at discharge * F/u with Surgery per their instructions (4) Essential hypertension: Code(s): I10 - Essential (primary) hypertension Status: Acute Assessment and Plan: Blood pressures reviewed and they are well controlled. BP 110s sys this morning * Continue antihypertensives and monitor daily. (5) Insulin dependent diabetes mellitus: Status: Chronic Assessment and Plan: Poorly controlled with a hemoglobin A1c today of 13.1%. Uncertain if she is fully compliant with diet or medications. * Continue sitagliptin and glimepiride. * Will continue with increased long acting with 65 units b.i.d. at discharge * She does give mealtime boluses, reportedly, however seems unsure as to how much she typically uses. * Recommended monitoring sugars 5 times daily and reporting measurements to PCP * Sliding scale insulin, Accu-Cheks, and hypoglycemic protocol during stay * Diabetic diet at discharge (6) Chronic obstructive pulmonary disease: Code(s): J44.9 - Chronic obstructive pulmonary disease, unspecified Status: Chronic Assessment and Plan: She is not on maintenance inhalers. * No acute issues at this time. (7) Bipolar disorder: Code(s): F31.9 - Bipolar disorder, unspecified Status: Acute Assessment and Plan: No acute issues * Continue home medication to include bupropion, duloxetine, and Rexulti. (8) Tobacco dependence: Code(s): F17.200 - Nicotine dependence, unspecified, uncomplicated Status: Chronic Assessment and Plan: Smoking cessation is imperative and was discussed. She does not seem motivated, unfortunately. * Nicotine patch available. DS: Summary Hospital Course Reason for hospitalization: Abscess on buttock Hospital Course: Patient is a 55 yo F smoker with historically poorly controlled insulin-dependent diabetes with a hemoglobin A1c of 13.1% during this stay, hypertension, hyperlipidemia, COPD, and sleep apnea who presented to the emergency department on 02/13
--- NOTE | 2020-02-16 10:54 | PM.DS ---
DS: Admitting Diagnosis Admitting Diagnosis Admitting Diagnosis: Type 2 diabetes mellitus with hyperglycemia DS: Discharge Diagnosis Discharge Diagnosis (1) Severe hyperglycemia due to diabetes mellitus: Code(s): E11.65 - Type 2 diabetes mellitus with hyperglycemia Status: Acute Assessment and Plan: Patient states compliance with her insulin regimen at home but admits she does not check her glucose. BGL in 80-120s this morning Will discharge on 65 U Long acting BID and home SSI Discussed importance of checking BGL regularly at home again today F/u with PCP (2) Hyponatremia: Code(s): E87.1 - Hypo-osmolality and hyponatremia Status: Acute Assessment and Plan: This is pseudohyponatremia due to hyperglycemia. Na 132 this morning; stable f/u PCP (3) Boil of buttock: Code(s): L02.32 - Furuncle of buttock Status: Acute Assessment and Plan: Given poorly controlled DM and extensive tobacco use, Surgery consulted and s/p I&D POD1. Surgery consult is appreciated for management and follow-up. Okay for discharge from Surgical standpoint; recommended no antibiotics at discharge F/u with Surgery per their instructions (4) Essential hypertension: Code(s): I10 - Essential (primary) hypertension Status: Acute Assessment and Plan: Blood pressures reviewed and they are well controlled. BP 110s sys this morning Continue antihypertensives and monitor daily. (5) Insulin dependent diabetes mellitus: Status: Chronic Assessment and Plan: Poorly controlled with a hemoglobin A1c today of 13.1%. Uncertain if she is fully compliant with diet or medications. Continue sitagliptin and glimepiride. Will continue with increased long acting with 65 units b.i.d. at discharge She does give mealtime boluses, reportedly, however seems unsure as to how much she typically uses. Recommended monitoring sugars 5 times daily and reporting measurements to PCP Sliding scale insulin, Accu-Cheks, and hypoglycemic protocol during stay Diabetic diet at discharge (6) Chronic obstructive pulmonary disease: Code(s): J44.9 - Chronic obstructive pulmonary disease, unspecified Status: Chronic Assessment and Plan: She is not on maintenance inhalers. No acute issues at this time. (7) Bipolar disorder: Code(s): F31.9 - Bipolar disorder, unspecified Status: Acute Assessment and Plan: No acute issues Continue home medication to include bupropion, duloxetine, and Rexulti. (8) Tobacco dependence: Code(s): F17.200 - Nicotine dependence, unspecified, uncomplicated Status: Chronic Assessment and Plan: Smoking cessation is imperative and was discussed. She does not seem motivated, unfortunately. Nicotine patch available. DS: Summary Hospital Course Reason for hospitalization: Abscess on buttock Hospital Course: Patient is a 55 yo F smoker with historically poorly controlled insulin-dependent diabetes with a hemoglobin A1c of 13.1% during this stay, hypertension, hyperlipidemia, COPD, and sleep apnea who presented to the emergency department on 02/13 via private vehicle for evaluation of hyperglycemia. At a routine visit with her PCP earlier that day, labs were drawn and patient was told to proceed to the ER for further evaluation for hyperglycemia. In the ER, her random glucose was measured to be 625. Patient was also found to have a boil/abscess on her right buttock. Patient admitted under this setting. Please see H&P for further details.
[2020-02-16 11:33] LABS: Glucose Point of Care 68 (65-105)
[2020-02-16 11:33] LABS: Glucose Point of Care 86 (65-105)
== END 2020-02-16 12:25 | disposition home or self-care (01) | DRG 638 ==
LOC: ANHED 15:55 → ANH2MED 16:27
PROVIDERS: Physician Assistant; Surgery; Admitting Provider Hospitalist; Emergency Provider Emergency Medicine; PCP Family Medicine; Visit Provider Family Medicine
PROC: 0H98XZZ Drainage of Buttock Skin, External Approach (ICD-10-PCS; CPT 46040; principal; 2020-02-15 12:00)
DX: E11.65 Type 2 diabetes mellitus with hyperglycemia (principal); L02.31 Cutaneous abscess of buttock; E87.1 Hypo-osmolality and hyponatremia; Z79.4 Long term (current) use of insulin; F17.210 Nicotine dependence, cigarettes, uncomplicated; E11.40 Type 2 diabetes mellitus with diabetic neuropathy, unspecified; F41.8 Other specified anxiety disorders; M54.5 Low back pain; G89.29 Other chronic pain; I10 Essential (primary) hypertension; J44.9 Chronic obstructive pulmonary disease, unspecified; E78.5 Hyperlipidemia, unspecified; G47.33 Obstructive sleep apnea (adult) (pediatric); Z78.0 Asymptomatic menopausal state; F31.9 Bipolar disorder, unspecified
CPT/HCPCS: 36415; 36600; 80048; 80053; 81001; 82010; 82375; 82805; 82948; 83036; 83050; 83690; 83735; 84100; 85025; 85027; 96360; 96361; 96374; 99285; A9270; G0378; J0690; J1650; J1815; J2250; J2405; J2704; J3010; J7030; J7120

== ENCOUNTER 2020-06-10 14:45 | Inpatient (IN) | payer OTHER, SELFPAY ==
--- NOTE | ~2020-06-10 | US_ITS ---
EXAMINATION: US venous doppler LE RT EXAM DATE: 06/10/2020 15:15 INDICATION: Right lower extremity swelling. TECHNIQUE: Multiple grayscale, color flow and Doppler images of the right lower extremity deep venous system were obtained and reviewed. Comparison is made to prior examination from 01/03/2019. FINDINGS: The right common femoral, femoral and profunda veins demonstrate normal color flow, respira tory variation, augmentation and compressibility. Compressibility, color flow confirmed within the r ight popliteal, posterior tibial, peroneal, and greater saphenous veins. There is a right inguinal l ymph node with expected fatty hilum, node measuring 3.3 x 2.3 x 1.3 cm, probably reactive. IMPRESSION: 1. No right lower extremity deep venous thrombosis. 2. Right inguinal lymphadenopathy probably reactive. Reviewed, dictated and finalized at location A.
--- NOTE | ~2020-06-10 | XR_ITS ---
XR foot RT min 3V 06/10/2020 15:27 Indication: Ulceration. Wound on plantar surface. Pain radiating to the upper leg. Procedure: 4 views right foot Comparison: Right ankle series dated 06/04/2019 Findings: There is soft tissue gas overlying the distal phalanx in the calcaneus along the plantar wilks rface, consistent with cellulitis and/or ulceration. There is a fibular side plate and screws. There is deformity of the distal tibia and superior margin of the talus with periosteal reaction along the distal fibula and tibia. Moderate diffuse soft tissue swelling. There is widening of the Lisfranc bereket nt, although no discrete fracture identified. Impression: 1: Large amount of soft tissue swelling with soft tissue gas along the plantar surface, consistent wi th cellulitis. Consider correlation with MRI to assess for osteomyelitis. 2: Deformity at the tibiotalar joint and at the Lisfranc joint are seen possibly indicating neuropat hic joints. There is suggestion of underlying distal tibial fracture, although this is not well seen. Reviewed, dictated and finalized at location B. Impression: 1: Large amount of soft tissue swelling with soft tissue gas along the plantar surface, consistent with cellulitis. Consider correlation with MRI to assess fo r osteomyelitis. 2: Deformity at the tibiotalar joint and at the Lisfranc joint are seen possib ly indicating neuropathic joints. There is suggestion of underlying distal tibi al fracture, although this is not well seen.
--- NOTE | ~2020-06-10 | CT_ITS ---
EXAMINATION: CT LE RT wo con DATE: 06/10/2020 16:44 INDICATION: Right lower limb edema and erythema. TECHNIQUE: Computed tomography (CT) of the right lower limb from the knee to the foot was performed w ithout intravenous contrast. Automated exposure control and iterative reconstruction technique were e mployed. The dose-length product was 1032.17 mGy-cm. COMPARISON: Right foot radiographs 06/10/2020, CT 10/20/2018 FINDINGS: There is mild left knee osteoarthritis. There is plate and screw fixation of distal fibula. There is an old healed fracture deformity of distal tibia. There is advanced osteoarthritis of the a nkle joint with loose bodies. There is periosteal reaction of distal tibia and fibula. There are old screw tracks in calcaneus, talus, and distal tibia. There is moderate osteoarthritis of subtalar join t and mild osteoarthritis of most of the midfoot joints, first metatarsophalangeal joint, and some of the interphalangeal joints. There is a fragment of heterotopic ossification in the area of Lisfranc ligament. There are enthesophytes at the posterior and plantar aspects of calcaneal tuberosity. There is moderate to severe fatty atrophy of the musculature of the ankle and foot. There is a moderate-si zed Benson's cyst. No knee joint effusion. There is widespread subcutaneous edema. There is an ulcer m edial and plantar to calcaneal tuberosity. IMPRESSION: 1. No specific evidence of osteomyelitis. 2. Polyarticular osteoarthritis including advanced osteoarthritis of the ankle joint with loose emily s. Reviewed, dictated and finalized at location A. IMPRESSION: 1. No specific evidence of osteomyelitis. 2. Polyarticular osteoarthritis including advanced osteoarthritis of the ankle joint with loose bodies.
[2020-06-10 14:49] VITALS: BP 108/76; PULSE 108; RESP 20; TEMP 36.8; O2SAT 100
[2020-06-10 15:46] LABS: Basophils Percent Auto 0.4 % (0.2-1.2); Eosinophils Absolute Auto 0.2 K/mm3 (0-0.3); Eosinophils Percent Auto 1.7 % (0-4.4); Hematocrit 38.9 % (37.0-47.0); Hemoglobin 12.7 g/dL (12.0-15.0); Immature Granulocyte Absolute 0.07 K/mm3 (0.00-0.031); Immature Granulocyte Percent A 0.6 % (0-0.5); Lymphocytes Absolute Auto 2.58 K/mm3 (0.9-3.2); Lymphocytes Percent Auto 23.2 % (18.3-44.2); Mean Corpuscular HGB Conc 32.6 g/dl (32-36); Mean Corpuscular Volume 94.9 fl (80-100); Mean Platelet Volume 9.8 fl (7.4-10.4); Monocytes Absolute Auto 0.6 K/mm3 (0.1-0.6); Monocytes Percent Auto 5.7 % (2.6-8.5); Neutrophils Absolute Auto 7.6 K/mm3 (1.3-6.7); Neutrophils Percent Auto 68.4 % (45.5-73.1); Platelet Count Result 349 k/mm3 (150-375); Red Cell Distribution Width 13.2 % (11.5-14.5); White Blood Count 11.1 K/mm3 (4.5-10.0)
[2020-06-10 15:56] LABS: INR 1.1; Prothrombin Time 14.1 Seconds (11.1-14.7)
[2020-06-10 15:57] LABS: Partial Thromboplastin Time 26.9 SECONDS (22.3-36.8)
[2020-06-10 15:59] LABS: D Dimer 0.57 ug/mL (<0.48)
[2020-06-10 16:21] LABS: Erythrocyte Sedimentation Rate 65 mm/hr (0-20)
[2020-06-10 16:25] LABS: Alanine Aminotransferase 9 U/L (4-35); Albumin Level 4.2 g/dL (3.5-5.1); Alkaline Phosphatase 94 U/L (38-126); Anion Gap 7 mmol/L (8-16); Aspartate Amino Transferase 20 U/L (14-36); Bilirubin,Total 0.5 mg/dL (0.2-1.3); Blood Urea Nitrogen 8 mg/dL (7-17); CRP 1.8 mg/dL (<1.0); Calcium 9.7 mg/dL (8.4-10.2); Carbon Dioxide 29 mmol/L (22-30); Chloride 100 mmol/L (98-107); Estimated CRCL calculation 87 ml/min; Estimated Glomerular Filt Rate > 60; Glucose 129 mg/dL (65-105); Sodium 136 mmol/L (137-145)
[2020-06-10 16:30] VITALS: BP 133/75; PULSE 89; RESP 16; O2SAT 100
--- NOTE | 2020-06-10 16:39 | ED.EXTPRO ---
HPI - Extremity Problem General Chief complaint: Extremity Problem,Nontraumatic <Britney Thomas PA-C - Last Filed: 06/10/20 21:47> Stated complaint: sent by pcp for dvt eval <Britney Thomas PA-C - Last Filed: 06/10/20 21:47> Time Seen by Provider: 06/10/20 15:52 <Britney Thomas PA-C - Last Filed: 06/10/20 21:47> Source: patient <Britney Thomas PA-C - Last Filed: 06/10/20 21:47> Mode of arrival: ambulatory <LONDON Hernandez Last Filed: 06/10/20 21:47> Limitations: no limitations <Britney Thomas PA-C - Last Filed: 06/10/20 21:47> History of Present Illness HPI Narrative: This is a 55-year-old female that presents the emergency department for right lower extremity swelling x1 week. Associated with erythema. Reports she has wounds on the bottom of her foot. Reports history of diabetes and peripheral neuropathy. Reports she has had a fracture in this ankle and has hardware in the ankle. Denies fever, chest pain, or shortness of breath. <Britney Thomas PA-C - Last Filed: 06/10/20 21:47> Related Data Home medications: Home Medications Medication Instructions Recorded Confirmed Rexulti 4 mg PO DAILY 11/04/19 06/10/20 duloxetine [Cymbalta] 60 mg PO DAILY 11/04/19 06/10/20 glimepiride 4 mg PO BID 11/04/19 06/10/20 trazodone 150 mg PO HS PRN 11/04/19 06/10/20 Humalog KwikPen Insulin See Rx Instructions .ROUTE .COMPLEX 02/14/20 06/10/20 Januvia 100 mg PO DAILY 02/14/20 06/10/20 atorvastatin 80 mg PO QPM 02/14/20 06/10/20 bupropion HCl 300 mg PO DAILY 02/14/20 06/10/20 ergocalciferol (vitamin D2) 50,000 unit PO WEEKLY 02/14/20 06/10/20 [Vitamin D2] lisinopril 10 mg PO DAILY 02/14/20 06/10/20 Lantus U-100 Insulin 50 unit SUBCUT DAILY 06/10/20 06/10/20 eszopiclone 3 mg PO HS PRN 06/10/20 06/10/20 gabapentin 600 mg PO DAILY 06/10/20 06/10/20 <Britney Thomas PA-C - Last Filed: 06/10/20 21:47> Allergies/Adverse reactions: Allergies Allergy/AdvReac Type Severity Reaction Status Date / Time povidone-iodine Allergy Intermediate rash Verified 02/14/20 16:47 <Britney Thomas PA-C - Last Filed: 06/10/20 21:47> Review of Systems Review of Systems: Narrative: CONSTITUTIONAL: Denies fever CARDIOVASCULAR: Reports edema. Denies chest pain RESPIRATORY: Denies dyspnea. SKIN: Reports edema and erythema MUSCULOSKELETAL: Reports joint pain, and myalgia. NEUROLOGIC: Reports numbness <LONDON Hernandez Last Filed: 06/10/20 21:47> All systems reviewed & are unremarkable except as noted in HPI and below <Brintey Thomas PA-C - Last Filed: 06/10/20 21:47> PMFSH Social History Social History: Social History Social History: The patient is and lives in [place] with her . She smoked 1.5 packs of cigarettes per day for many years, but for the last 6 months she has been smoking up to 3 packs of cigarettes per day due to stress. No excessive alcohol use. She denies illicit drug use. She designates her Will as her surrogate decision maker and she wishes to be a full code. Smoking packs per day: 1.5 Smoking cigarettes per day: 30.0 Years smoked: 35 Smoking pack-years: 52.50 Smoking status: Current every day smoker Tobacco type: cigarettes Additional smoking assessment comments: Alcohol intake: never Substance use: never Spiritual care concerns: No Agree to blood products: Yes <LONDON Hernandez Last Filed: 06/10/20 21:47> Exam Narrative: Exam Narrative: GENERAL: Well-appearing, well-nourished, and in no acute distress. HEAD: Normocephalic, atraumatic. EYES: EOMI. CHEST: Clear to auscultation. No respiratory distress. No wheezes rales or rhonchi HEART: Regular rate and rhythm. No murmur heard. Normal peripheral pulses. EXTREMITIES: Normal range of motion. Severe edema to the right ankle into the foot. Wounds on the plantar surface of the right
--- NOTE | 2020-06-10 16:54 | PC.NURSE ---
SPOKE WITH ZULMA IN THE LAB ABOUT THE ADDED ON A1C LEVEL, SHE STATES SHE WILL RUN THE TEST NOW.
[2020-06-10 17:05] LABS: Hemoglobin A1C 8.1 % (<5.7)
[2020-06-10 17:15] VITALS: BP 115/75; PULSE 93; RESP 17; O2SAT 100
[2020-06-10 17:16] LABS: Potassium 3.5 mmol/L (3.4-5.0)
[2020-06-10 18:08] LABS: Glucose Point of Care 70 (65-105)
--- NOTE | 2020-06-10 18:14 | PC.NURSE ---
PT DIET CALLED AT THIS TIME.
[2020-06-10 19:06] VITALS: BP 115/75; PULSE 93; RESP 17; O2SAT 100
--- NOTE | 2020-06-10 19:15 | ADMGEN ---
This patient, Jaenette Peres, was admitted to Medical Room 342-01. Patient/family oriented to hospital policies and general routines including ID bracelet, bed and alarms, visiting hours, pain management, procedures, bathroom and other care routines, personal items, smoking policy, room service/diet, and visiting hours. Valuables list has been completed. Information on how to activate the Rapid Response Team has been discussed. Patient/Family are encouraged to report perceived risks to care and to ask questions if they do not understand what they are told or what they should do.
[2020-06-10 19:23] VITALS: BMI 31.2
[2020-06-10 19:24] VITALS: BP 130/65; PULSE 82; RESP 18; TEMP 36.5; O2SAT 100
[2020-06-10 22:00] LABS: Glucose Point of Care 168 (65-105)
--- NOTE | 2020-06-10 23:17 | PM.IMHP ---
H&P: HPI History of Present Illness Date/Time: 06/10/20 23:17 Chief complaint: Diabetic foot infection Narrative: Jeanette Peres is a 55 year old female Who has insulin-dependent. The patient was admitted here back in January with the buttocks abscess and her hemoglobin A1c at that time was noted to be 13.1. The patient was having blood sugars in the 300 To 400 and had poorly controlled diabetes at that time. The patient told me that she had her A1c checked today at her doctor's office and it was 8.6. So she stated that they have been more under control. She has had a history of having ORIF of the right ankle and always has a right ankle edema. The patient has severe diabetic neuropathy and it was not sure what happened to her foot. But the 1st time she noticed that she had an ulcerated area on her foot was about a week ago. She has an ulcerated area on her right Heel as well as the right great toe. the patient developed some pain in her right calf area. She did have an ultrasound today that was negative for DVT. She came to the ER today because of the increased swelling over the past week. She denied any fever chills. No shortness of breath. She has not sought any treatment for this ulcerated area on her heel in the last week. The lower extremity CT showed no evidence of osteomyelitis. Polyarticular osteoarthritis including advanced osteoarthritis of the ankle joint with loose bodies. a CT had been performed after a x-ray had been performed because there was some question about possible neuropathic joint on the x-ray general surgery did agreed to consult the patient. The patient was started on vancomycin and Primaxin. Blood cultures and right foot and right toe cultures were obtained as well. Her blood sugar today was 168 prior to that 129. Date of service is 06/10/2020. Review of Systems Review of Systems: All systems reviewed & are unremarkable except as noted in HPI and below Constitutional: Constitutional: Reports as per HPI and Reports no additional constitutional complaints Eyes: Eyes: Reports as per HPI and Reports no additional eye complaints ENT: Reports system reviewed and no additional complaints, except as documented and Reports Normal hearing present Cardiovascular: Cardiovascular: Reports no additional cardiovascular complaints Respiratory: Respiratory: Reports no additional respiratory complaints and Reports no additional respiratory complaints Gastrointestinal: Gastrointestinal: Reports as per HPI and Reports no additional gastrointestinal complaints Musculoskeletal: Musculoskeletal: Reports no additional musculoskeletal complaints Integumentary/Breasts: Skin/Breast: Reports system reviewed and no additional complaints, except as docu and Reports as per HPI Neurologic: Reports system reviewed and no additional complaints, except as documented, Reports as per HPI and Reports Normal hearing present Psychiatric: Psychiatric: Reports no additional psychiatric complaints and Reports as per HPI Endocrine: Endocrine: Reports no additional endocrine complaints Hematologic/Lymphatic: Hematologic/Lymphatic: Reports no additional hematologic/lymphatic complaints Allergic/Immunologic: Allergic/Immunologic: Reports no additional allergic/immunologic complaints [facility] Past Medical History Medical History (Updated 06/10/20 @ 23:36 by Yoana Lua NP) Bipolar disorder Chronic back pain Chronic obstructive pulmonary disease Depression with anxiety Diabetic neuropathy Diabetic peripheral neuropathy Essential hypertension Fibromyalgia Fracture Right ankle with chronic deformity. Gastroesophageal reflux disease History of blood transfusion Hyperlipidemia Insulin dependent diabetes mellitus Hemoglobin A1c was 13.1% on 02/14/2020. Irritable bowel syndrome Obstructive sleep apnea Osteoarthritis Pneumonia Post-menopausal Tobacco dependence Tubal Urinary tract infection Surgical History Surgical
[2020-06-10] MEDS: traZODone HCL 50 MG TABLET 150 MG PO (23:58)
[2020-06-10] MEDS: NICOTINE (*PBKC) 21 MG PATCH 1 PATCH TRANSDERM (23:58)
[2020-06-10] MEDS: ATORVASTATIN 40 MG TABLET 80 MG PO (23:58)
[2020-06-11] MEDS: ACETAMINOPHEN 325 MG TABLET 650 MG PO (00:23)
[2020-06-11 05:16] VITALS: BP 117/62; PULSE 81; RESP 16; TEMP 36.4; O2SAT 97
[2020-06-11 05:46] LABS: Basophils Percent Auto 0.3 % (0.2-1.2); Eosinophils Absolute Auto 0.3 K/mm3 (0-0.3); Eosinophils Percent Auto 2.9 % (0-4.4); Hemoglobin 11.7 g/dL (12.0-15.0); Immature Granulocyte Absolute 0.03 K/mm3 (0.00-0.031); Immature Granulocyte Percent A 0.3 % (0-0.5); Lymphocytes Absolute Auto 2.83 K/mm3 (0.9-3.2); Mean Corpuscular HGB Conc 32.5 g/dl (32-36); Mean Corpuscular Hemoglobin 31.1 pg (26-34); Mean Corpuscular Volume 95.7 fl (80-100); Mean Platelet Volume 10.1 fl (7.4-10.4); Monocytes Absolute Auto 0.5 K/mm3 (0.1-0.6); Neutrophils Absolute Auto 5.2 K/mm3 (1.3-6.7); Neutrophils Percent Auto 58.5 % (45.5-73.1); Platelet Count Result 295 k/mm3 (150-375); Red Blood Count 3.76 M/mm3 (4.2-5.4); Red Cell Distribution Width 13.2 % (11.5-14.5); White Blood Count 8.9 K/mm3 (4.5-10.0)
[2020-06-11 06:00] LABS: Anion Gap 6 mmol/L (8-16); Blood Urea Nitrogen 9 mg/dL (7-17); Calcium 9.2 mg/dL (8.4-10.2); Carbon Dioxide 27 mmol/L (22-30); Chloride 105 mmol/L (98-107); Estimated CRCL calculation 78 ml/min; Estimated Glomerular Filt Rate > 60; Glucose 106 mg/dL (65-105); Magnesium 1.9 mg/dL (1.6-2.3); Potassium 3.9 mmol/L (3.4-5.0); Sodium 138 mmol/L (137-145)
[2020-06-11 07:49] LABS: Glucose Point of Care 172 (65-105)
[2020-06-11] MEDS: DULoxetine HCL 60 MG CAPSULE.DR PO (09:11)
[2020-06-11] MEDS: GLIMEPIRIDE 2 MG TABLET PO (09:11)
[2020-06-11 09:12] VITALS: RESP 16; O2SAT 98
[2020-06-11] MEDS: lisinopriL 10 MG TABLET PO (09:12)
[2020-06-11] MEDS: buPROPion HCL XL (24 HR) 150 MG TABCR 300 MG PO (09:12)
[2020-06-11] MEDS: GABAPENTIN 300 MG CAPSULE 600 MG PO (09:12)
[2020-06-11 11:48] LABS: Glucose Point of Care 237 (65-105)
[2020-06-11] MEDS: SILVERGEL (ELTA) 45 ML 1 APPLIC TOPICAL (12:17)
[2020-06-11] MEDS: INSULIN ASPART (*BKC) 100 UNITS/ML SUB-Q (12:24)
[2020-06-11 14:00] VITALS: BP 107/56; PULSE 92; RESP 18; TEMP 36.3; O2SAT 100
--- NOTE | 2020-06-11 16:36 | PM.IMPN ---
Progress Note: A&P Assessment and Plan (1) Diabetic infection of right foot: Code(s): E11.628 - Type 2 diabetes mellitus with other skin complications; L08.9 - Local infection of the skin and subcutaneous tissue, unspecified Status: Acute Assessment and Plan: -----wound culture show many gram-positive cocci in clusters in the right great toe wound. Heel is showing many Gram-positive cocci in clusters as well as gram-positive bacilli. At this time we will continue antibiotic therapy with vancomycin and White blood cell count slightly elevated 10.2 and CRP only mildly elevated at 1.8. Hopefully we can narrow down these antibiotics in the next 1-2 days. Blood culture still pending. Continue wound care with silver gel. (2) Bipolar disorder: Code(s): F31.9 - Bipolar disorder, unspecified Status: Acute Assessment and Plan: -----stable at this time. Continue with Cymbalta and Wellbutrin and rexulti ( This is non formulary she may need to bring it from home.) (3) Chronic obstructive pulmonary disease: Code(s): J44.9 - Chronic obstructive pulmonary disease, unspecified Status: Chronic Assessment and Plan: ------ Patient has been encouraged to stop smoking. No shortness of breath reported (4) Tobacco dependence: Code(s): F17.200 - Nicotine dependence, unspecified, uncomplicated Status: Chronic Assessment and Plan: -----patient needs to quit smoking as stated above. (5) Insulin dependent diabetes mellitus: Status: Chronic Assessment and Plan: -----Accu-Cheks AC and HS. Last glucose 237. Will continue Lantus tonight. A1c much better and is now 8.1 when compared to January when it was 13.1. (6) Diabetic neuropathy: Code(s): E11.40 - Type 2 diabetes mellitus with diabetic neuropathy, unspecified Status: Chronic Assessment and Plan: ---- Continue with Cymbalta and gabapentin (7) Essential hypertension: Code(s): I10 - Essential (primary) hypertension Status: Chronic Assessment and Plan: ------last blood pressure 107/56. Continue lisinopril. Time Spent With Patient Time with patient: 25 - 35 minutes Subjective Date/time seen: 06/11/20 16:36 Interval history: Pt is a 55-year-old female here for diabetic foot wound. Patient was seen today and states she is feeling okay and is wanting to go home. She is still having swelling to the area and some pain in the calf. She denies fevers, chills, nausea, vomiting, chest pain, shortness of breath, or constipation. She has a bit of diarrhea which is normal for her.. No history of blood clots Review of Systems Review of Systems: All systems reviewed & are unremarkable except as noted in HPI and below Exam Narrative: Exam Narrative: General: Well developed well nourished patient in NAD HEENT: normocephalic Neck: supple Neuro: Alert and oriented x4 CV:RRR Resp:CTA Abd: Soft, non distended. No pain to palpation. Positive bowel sounds Extremities: Right leg with nonpitting swelling and pain to the calf. No erythema. Pulses intact. Two small wounds 1 on the heel and 1 on the great toe covered by gauze. The wound on the toe has very mild scant discharge. Objective Data Vital Signs Vital Signs: Vital Signs - 24 hr 06/10/20 17:15 06/10/20 19:06 06/10/20 19:24 Temperature 97.7 F Pulse Rate 93 93 82 Respiratory Rate 17 17 18 Blood Pressure 115/75 115/75 130/65 Pulse Oximetry 100 100 100 06/11/20 05:16 06/11/20 09:12 06/11/20 14:00 Temperature 97.5 F L 97.3 F L Pulse Rate 81 92 Respiratory Rate 16 16 18 Blood Pressure 117/62 107/56 L Pulse Oximetry 97 98 100 Intake/Output Intake/Output: Intake & Output 06/08/20 06/09/20 06/10/20 06/11/20 23:59 23:59 23:59 23:59 Intake Total 600 1580 Balance 600 1580 Meds/Results Medications: Active Medications Generic Name Dose Route Start La
[2020-06-11 16:57] LABS: Glucose Point of Care 77 (65-105)
[2020-06-11] MEDS: ATORVASTATIN 40 MG TABLET 80 MG PO (17:28)
--- NOTE | 2020-06-11 17:58 | PM.CNGS ---
Assessment and Plan Assessment and plan (1) Diabetic foot ulcer: Qualifiers: Diabetic foot ulcer location: other Diabetes mellitus type: type 2 Laterality: right Non-pressure ulcer stage: with fat layer exposed Qualified Code(s): E11.621 - Type 2 diabetes mellitus with foot ulcer; L97.512 - Non-pressure chronic ulcer of other part of right foot with fat layer exposed Code(s): E11.621 - Type 2 diabetes mellitus with foot ulcer; L97.509 - Non-pressure chronic ulcer of other part of unspecified foot with unspecified severity Status: Acute Assessment and Plan: I have reviewed the imaging. She appears to have diabetic foot ulcers without any evidence of osteomyelitis. Will continue local wound care with silver gel and proper footwear. She has hx of poorly controlled diabetes, but it has been somewhat better controlled as of late. Will continue to follow, but I don't anticipate any surgical debridement or amputation need at this time. (2) Diabetic neuropathy: Code(s): E11.40 - Type 2 diabetes mellitus with diabetic neuropathy, unspecified Status: Chronic History of Present Illness Consult details Consult date: 06/11/20 Reason for consult: wound care Narrative: 55 yo woman presented to ED last night with right foot wounds and swelling. She has noticed the wounds on her foot for about 1 week. She has peripheral neuropathy secondary to diabetes, therefore she doesn't have normal sensation in her feet. She denies fevers. She denies any significant drainage from wounds. She has not had any prior wound care for diabetic foot ulcers. Review of Systems Review of Systems: All systems reviewed & are unremarkable except as noted in HPI and below Eyes: Eyes: Denies change in vision ENT: Denies hearing loss, Denies neck pain and Denies sore throat Cardiovascular: Cardiovascular: Denies chest pain and Denies dyspnea Respiratory: Respiratory: Denies cough, Denies dyspnea and Denies wheezing Genitourinary: Genitourinary: Denies hematuria and Denies dysuria Musculoskeletal: Musculoskeletal: Reports as per HPI, Denies arthralgias, Reports joint swelling (right ankle) and Denies neck pain Allergic/Immunologic: Allergic/Immunologic: Denies wheezing PMFSH Past Medical History Medical History Bipolar disorder Chronic back pain Chronic obstructive pulmonary disease Depression with anxiety Diabetic neuropathy Diabetic peripheral neuropathy Essential hypertension Fibromyalgia Fracture Right ankle with chronic deformity. Gastroesophageal reflux disease History of blood transfusion Hyperlipidemia Insulin dependent diabetes mellitus Hemoglobin A1c was 13.1% on 02/14/2020. Irritable bowel syndrome Obstructive sleep apnea Osteoarthritis Pneumonia Post-menopausal Tobacco dependence Tubal Urinary tract infection Surgical History Surgical History History of breast biopsy left breast History of cardiac catheterization History of cholecystectomy History of dilatation and curettage History of hysterectomy History of tubal ligation History of umbilical hernia repair Status post ORIF of fracture of ankle Right ankle Family History Family History Father Hypertension due to motor vehicle traffic accident Grandparent Diabetes mellitus Other Diabetes mellitus Mother due to motor vehicle traffic accident Other Family history of heart disease in male family member before age 55 Social History Social History Social History: The patient is and lives in [place] with her . She smoked 1.5 packs of cigarettes per day for many years, but for the last 6 months she has been smoking up to 3 packs of cigarettes per day due to stress. N
[2020-06-11 20:25] VITALS: BP 124/60; PULSE 85; RESP 12; TEMP 36.9; O2SAT 100
[2020-06-11] MEDS: INSULIN GLARGINE (*BKC) 100 UNITS/ML 35 UNITS SUB-Q (20:33)
[2020-06-11] MEDS: NICOTINE (*PBKC) 21 MG PATCH 1 PATCH TRANSDERM (20:34)
[2020-06-11 21:39] LABS: Glucose Point of Care 213 (65-105)
[2020-06-12] MEDS: ACETAMINOPHEN 325 MG TABLET 650 MG PO (00:20)
[2020-06-12] MEDS: traZODone HCL 50 MG TABLET 150 MG PO (01:38)
[2020-06-12 05:33] VITALS: BP 144/81; PULSE 86; RESP 14; TEMP 36.9; O2SAT 97
[2020-06-12 05:39] LABS: Hematocrit 34.9 % (37.0-47.0); Hemoglobin 11.4 g/dL (12.0-15.0); Mean Corpuscular HGB Conc 32.7 g/dl (32-36); Mean Corpuscular Hemoglobin 30.8 pg (26-34); Mean Corpuscular Volume 94.3 fl (80-100); Mean Platelet Volume 10.1 fl (7.4-10.4); Platelet Count Result 293 k/mm3 (150-375); Red Cell Distribution Width 13.1 % (11.5-14.5)
[2020-06-12 05:43] LABS: Glucose Point of Care 130 (65-105)
[2020-06-12 06:41] LABS: Vancomycin Trough 19.8 ug/mL (10.0-20.0)
[2020-06-12 07:53] LABS: Anion Gap 5 mmol/L (8-16); Blood Urea Nitrogen 12 mg/dL (7-17); Calcium 9.3 mg/dL (8.4-10.2); Carbon Dioxide 24 mmol/L (22-30); Chloride 106 mmol/L (98-107); Estimated CRCL calculation 87 ml/min; Estimated Glomerular Filt Rate > 60; Glucose 120 mg/dL (65-105); Sodium 135 mmol/L (137-145)
[2020-06-12 07:56] LABS: Glucose Point of Care 150 (65-105)
[2020-06-12] MEDS: GABAPENTIN 300 MG CAPSULE 600 MG PO (08:45)
[2020-06-12] MEDS: buPROPion HCL XL (24 HR) 150 MG TABCR 300 MG PO (08:45)
[2020-06-12] MEDS: DULoxetine HCL 60 MG CAPSULE.DR PO (08:45)
[2020-06-12] MEDS: GLIMEPIRIDE 2 MG TABLET PO (08:45)
[2020-06-12] MEDS: lisinopriL 10 MG TABLET PO (08:46)
[2020-06-12] MEDS: SILVERGEL (ELTA) 45 ML 1 APPLIC TOPICAL (08:46)
[2020-06-12 12:10] LABS: Glucose Point of Care 258 (65-105)
[2020-06-12] MEDS: INSULIN ASPART (*BKC) 100 UNITS/ML SUB-Q (12:35)
--- NOTE | 2020-06-12 12:36 | PM.DS ---
DS: Admitting Diagnosis Admitting Diagnosis Admitting Diagnosis: Diabetic foot infection DS: Discharge Diagnosis Discharge Diagnosis (1) Diabetic infection of right foot: Code(s): E11.628 - Type 2 diabetes mellitus with other skin complications; L08.9 - Local infection of the skin and subcutaneous tissue, unspecified Status: Acute Assessment and Plan: -----foot wounds do not seem to be acutely infected at this time. I have spoke with Heather, wound care nurse and Dr. Louis rushing who agrees. See there is some slight serous discharge. They recommend silver gel and local wound care. She received vancomycin and imipenem while she was here and was discharged on Bactrim. She has some swelling to the right leg which is acute on chronic since she had surgery to that ankle. I do not suspect a joint infection at this time as is not erythematous or hot. No DVT seen on ultrasound. She is to follow-up closely with her primary care physician Dr. Leigh and she was educated about doing foot checks daily. There were wound cultures taken which show a mix of gram-positive and gram-negative bacteria. This is likely a representation of her normal brock and not necessarily indication of infection. Her white blood cell count is normal and CRP 1.8. Of osteomyelitis. Blood cultures are negative today and will be monitored until finalized. (2) Bipolar disorder: Code(s): F31.9 - Bipolar disorder, unspecified Status: Acute Assessment and Plan: -----stable at this time. Continue with Cymbalta and Wellbutrin and rexulti (3) Chronic obstructive pulmonary disease: Code(s): J44.9 - Chronic obstructive pulmonary disease, unspecified Status: Chronic Assessment and Plan: ------ Patient has been encouraged to stop smoking. No shortness of breath reported (4) Tobacco dependence: Code(s): F17.200 - Nicotine dependence, unspecified, uncomplicated Status: Chronic Assessment and Plan: -----patient needs to quit smoking as stated above. (5) Insulin dependent diabetes mellitus: Status: Chronic Assessment and Plan: -----Accu-Cheks AC and HS. Last glucose 258. Continue home regimen. A1c much better and is now 8.1 when compared to January when it was 13.1. (6) Diabetic neuropathy: Code(s): E11.40 - Type 2 diabetes mellitus with diabetic neuropathy, unspecified Status: Chronic Assessment and Plan: ---- Continue with Cymbalta and gabapentin (7) Essential hypertension: Code(s): I10 - Essential (primary) hypertension Status: Chronic Assessment and Plan: ------last blood pressure 144/81. Continue lisinopril. DS: Summary Hospital Course Reason for hospitalization: Diabetic foot infection Hospital Course: Female who presented emergency room for right lower extremity swelling and wounds. She has a history of peripheral neuropathy and surgery to that area. Vitals in the ER were temperature 98.3?, pulse 108, respiratory rate 20, blood pressure 108/76, pulse ox 100 room air. Initial white blood cell count 11.1, hemoglobin 12.7, hematocrit 38.9, platelets 349. Doppler of the right leg did not show any DVT but did show inguinal lymphadenopathy likely reactive to infection. Foot x-ray showed large amount of soft tissue swelling with gas in the plantar surface consistent with cellulitis. CT showed no evidence of osteomyelitis. The patient was started on vancomycin and imipenem and admitted to the hospitalist service. Her erythema cleared up right away as when I saw the patient for the 1st time there were no erythema or at discharge to the area. She had 2 wounds 1 on dorsal aspect of her great toe and 1 wound on her heel. She was neurovascularly intact. Surgery and wound Care saw the patient as well. I spoke with surgery and I looked at wound cares and I agree these do not look acutely infected. I reviewed t
--- NOTE | 2020-06-18 13:46 | PC.NURSE ---
Blood cx are negative.
== END 2020-06-12 14:25 | disposition home or self-care (01) | DRG 639 ==
LOC: ANHED 18:29 → ANH3MED 19:24
PROVIDERS: Nurse Practitioner; Physician Assistant; Admitting Provider Hospitalist; Emergency Provider Emergency Medicine; PCP Family Medicine; Visit Provider Physician Assistant
DX: E11.621 Type 2 diabetes mellitus with foot ulcer (principal); L97.512 Non-pressure chronic ulcer of other part of right foot with fat layer exposed; E11.42 Type 2 diabetes mellitus with diabetic polyneuropathy; Z28.21 Immunization not carried out because of patient refusal; F31.9 Bipolar disorder, unspecified; J44.9 Chronic obstructive pulmonary disease, unspecified; F17.210 Nicotine dependence, cigarettes, uncomplicated; I10 Essential (primary) hypertension; G47.33 Obstructive sleep apnea (adult) (pediatric); E78.5 Hyperlipidemia, unspecified; K21.9 Gastro-esophageal reflux disease without esophagitis; R79.1 Abnormal coagulation profile; Z79.4 Long term (current) use of insulin; Z79.899 Other long term (current) drug therapy
CPT/HCPCS: 36415; 73630; 73700; 80048; 80053; 80202; 82948; 83036; 83735; 84443; 85025; 85027; 85380; 85610; 85652; 85730; 86140; 87040; 87070; 87147; 87186; 87205; 93971; 99285; A9270; J0743; J1815; J3370

== ENCOUNTER 2020-07-29 15:19 | Outpatient (CLI) | payer OTHER, SELFPAY ==
--- NOTE | ~2020-07-29 | US_ITS ---
EXAMINATION: US venous doppler LE RT DATE: 07/29/2020 15:57 INDICATION: Right lower limb pain. TECHNIQUE: Grayscale ultrasound images without and with compression and Doppler ultrasound images of the right lower extremity veins were obtained. COMPARISON: Ultrasound 01/03/2019 FINDINGS: The visualized portions of right common femoral vein, profunda (deep) femoral vein, femoral vein, pop liteal vein, peroneal veins, posterior tibial veins, and greater saphenous vein outflow are patent. IMPRESSION: 1. No deep venous thrombosis. Reviewed, dictated and finalized at location A. SOFTWARE DEVELOPER
== END 2020-07-29 15:20 | disposition home or self-care (01) ==
PROVIDERS: PCP Family Medicine; Visit Provider Nurse Practitioner
DX: M79.661 Pain in right lower leg (principal)
CPT/HCPCS: 93971

== ENCOUNTER 2020-09-12 21:26 | Inpatient (IN) | payer OTHER, SELFPAY ==
[2020-09-12] VITALS (16 sets, daily range): BP systolic 82–101; BP diastolic 47–62; PULSE 91–101; RESP 12–30; TEMP 36.2; O2SAT 97–100
--- NOTE | ~2020-09-12 | CT_ITS ---
EXAMINATION: CT chest abdomen pelvis wo con EXAM DATE: 09/12/2020 22:35 INDICATION: Upper abdominal pain, leukocytosis, hypotension . Diarrhea. TECHNIQUE: Spiral CT of the chest, abdomen and pelvis was performed without contrast. Axial, abebe l and sagittal images were reviewed. Coronal maximum intensity pixel images of chest reviewed. The dose-length product (DLP) for this examination was 1832.68 mGy-cm. The exposure was tailored accordi ng to patient size (auto mA exposure control), and iterative reconstruction (ASIR) was used as additi onal dose reduction technique. Comparison is made to prior examination from 11/04/2019, pulmonary CT. FINDINGS: CHEST: There is chronic mosaic pattern attenuation throughout the lungs unchanged compared to prior study. Differential diagnosis for this includes air trapping (asthma, bronchiolitis obliterans), vas culitis, or chronic groundglass opacity which can be caused by hypersensitivity pneumonitis, nonspeci fic interstitial pneumonitis (NSIP), cryptogenic organized pneumonia, desquamative interstitial pneum onitis(DIP). Linear bilateral atelectasis. There is 3 x 5 mm right lower lobe nodule, unchanged consistent with po stinfectious residua. There are no pleural or pericardial effusions. Tracheobronchial tree is paten t. There is no mediastinal, hilar or axillary lymphadenopathy. There is no pneumothorax. Heart normal in size. There is moderate coronary arterial calcification, arterial sclerosis. ABDOMEN PELVIS: There is hepatosplenomegaly with the liver measuring 24 cm in craniocaudal dimension. The liver, spleen, adrenal glands and pancreas are unremarkable. There are cholecystectomy clips. There is no nephrolithiasis or hydronephrosis. The uterus is not identified and has likely been wilks rgically resected. The bladder is unremarkable. There is no retroperitoneal or pelvic lymphadenopat hy. There is mild to moderate scattered arteriosclerotic disease. Small umbilical fat-containing he rnia. There is mild scattered colonic diverticulosis. There is no adjacent inflammatory change to suggest diverticulitis. The stomach and small bowel are unremarkable. There is expected amount of colonic st ool. No free intraperitoneal gas. There are no osteoblastic or osteolytic lesions identified. IMPRESSION: 1. Chronic lung mosaic attenuation, differential diagnosis above. 2. Hepatosplenomegaly. 3. Mild colonic diverticulosis. 4. Small umbilical hernia. 5. No acute chest, abdomen or pelvis findings. Reviewed, dictated and finalized at location G. ANCE OFFICER
--- NOTE | ~2020-09-12 | XR_ITS ---
EXAMINATION: XR chest 2V EXAM DATE: 09/12/2020 22:21 INDICATION: Dizziness. TECHNIQUE: Frontal and lateral projections of the chest obtained and reviewed. Comparison is made to prior examination from 12/20/2019. FINDINGS: There is suspicion of small amount of right basilar reticulonodular airspace disease. This finding has been indicated, marked on the examination for review, clinical correlation. This is new c ompared to previous study, could be acute infectious process. Some left sided linear atelectasis. The lungs are otherwise clear. There are no pleural effusions. The cardiomediastinal silhouette is wit hin normal limits. There is no pneumothorax suspected. The bones and soft tissues are unremarkable. IMPRESSION: Suspicion of new small right basilar acute airspace disease, infectious process. Reviewed, dictated and finalized at location G. [place] ASSISTANT STORE MANAGER IMPRESSION: Suspicion of new small right basilar acute airspace disease, infect ious process.
--- NOTE | ~2020-09-12 | XR_ITS ---
EXAMINATION: XR foot RT min 3V EXAM DATE: 09/12/2020 23:26 INDICATION: Wound, diabetes. TECHNIQUE: Right foot dorsoplantar, lateral and oblique projections obtained and reviewed. Compariso n is made to prior examination from 06/10/2020. FINDINGS: There is large ulceration along the inferior right heel fat-pad again noted, larger than o n prior study. Otherwise, no subcutaneous gas. There are no bony erosions identified. There is fibula r plate in position. There is severe ankle joint osteoarthritis which could be secondary to posttraum atic etiology. Chronic moderate mid foot primary osteoarthritis. Some diffuse subcutaneous edema. Sma ll calcaneal spurs. IMPRESSION: 1. Heel soft tissue ulceration larger than in May. Soft tissue swelling. 2. Advanced right ankle osteoarthritis. 3. No acute osseous findings. Reviewed, dictated and finalized at location G. T METAL PATTERN CUTTER
--- NOTE | ~2020-09-12 | CT_ITS ---
EXAMINATION: CT brain wo con EXAM DATE: 09/12/2020 22:35 INDICATION: Lightheadedness for 2 days. History of hypokalemia. Diarrhea started today. TECHNIQUE: Spiral CT of the head was performed without contrast. Axial, coronal and sagittal images were reviewed. The dose-length product (DLP) for this examination was 605.33 mGy-cm. The exposure w as tailored according to patient size, and iterative reconstruction (ASIR) was used as additional dos e reduction technique. Comparison is made to prior examination from 11/04/2019. FINDINGS: There is no acute intraparenchymal hemorrhage. No evidence of intraparenchymal brain mass lesion. No evidence of acute infarction. There is no mass effect or midline shift. The ventricles are normal in size. There are no extra-axial collections. There are no acute calvarial fractures. T he orbits are unremarkable. Soft tissue is unremarkable. The visualized sinuses and mastoid air marcos ls are well aerated. IMPRESSION: 1. No acute intracranial findings. Reviewed, dictated and finalized at location G. BINDER STRIPPER
--- NOTE | 2020-09-12 21:34 | ECG_ITS ---
Measurements Intervals [place] Rate: 100 P: 4 IN: 166 QRS: 11 QRSD: 104 T: 61 QT: 385 QTc: 499 Interpretive Statements SINUS TACHYCARDIA POSSIBLE LEFT ATRIAL ENLARGEMENT INCOMPLETE RIGHT BUNDLE BRANCH BLOCK BASELINE WANDER- I, II, AVR, AVL, AVF, V3 BORDERLINE ECG Electronically Signed On 09-13-2020 6:41:18 DIRECTOR PHYSICAL by Jun Navarro D.O.
[2020-09-12 21:53] LABS: Basophils Absolute Auto 0.1 K/mm3 (0.0-0.1); Basophils Percent Auto 0.3 % (0.2-1.2); Eosinophils Absolute Auto 0.1 K/mm3 (0-0.3); Eosinophils Percent Auto 0.3 % (0-4.4); Hematocrit 44.5 % (37.0-47.0); Hemoglobin 16.2 g/dL (12.0-15.0); Immature Granulocyte Absolute 0.33 K/mm3 (0.00-0.031); Immature Granulocyte Percent A 1.2 % (0-0.5); Mean Corpuscular HGB Conc 36.4 g/dl (32-36); Mean Corpuscular Hemoglobin 31.7 pg (26-34); Mean Corpuscular Volume 87.1 fl (80-100); Mean Platelet Volume 11.6 fl (7.4-10.4); Monocytes Absolute Auto 0.8 K/mm3 (0.1-0.6); Neutrophils Absolute Auto 23.9 K/mm3 (1.3-6.7); Neutrophils Percent Auto 86.2 % (45.5-73.1); Platelet Count Result 312 k/mm3 (150-375); Red Blood Count 5.11 M/mm3 (4.2-5.4); Red Cell Distribution Width 14.1 % (11.5-14.5); White Blood Count 27.7 K/mm3 (4.5-10.0)
[2020-09-12] MEDS: SODIUM CHLORIDE 0.9% IV 1,000 ML 999 ML IV CONT ×2 (22:05→22:41)
[2020-09-12 22:10] LABS: Alanine Aminotransferase 18 U/L (4-35); Albumin Level 4.4 g/dL (3.5-5.1); Alkaline Phosphatase 189 U/L (38-126); Anion Gap 17 mmol/L (8-16); Aspartate Amino Transferase 26 U/L (14-36); Bilirubin,Total 0.7 mg/dL (0.2-1.3); Blood Urea Nitrogen 12 mg/dL (7-17); Calcium 9.4 mg/dL (8.4-10.2); Carbon Dioxide 25 mmol/L (22-30); Chloride 78 mmol/L (98-107); Estimated CRCL calculation 47 ml/min; Estimated Glomerular Filt Rate 29; Glucose 417 mg/dL (65-105); Potassium 2.7 mmol/L (3.4-5.0); Sodium 120 mmol/L (137-145)
[2020-09-12 22:11] LABS: Add Urine Microscopic? YES; Appearance Urine Clear (Clear); Bilirubin Urine Negative (Negative); Blood Urine Negative (Negative); Color Urine Yellow (Yellow); Glucose Urine UA 3+ mg/dL (Negative); Ketones Urine Negative (Negative); Leukocyte Esterase Ur Negative LEU/UL (Negative); Nitrate Urine Negative (Negative); Protein Urine 1+ mg/dL (Negative); RBC Urine 0-2 /hpf (0-2); Specific Grav Ur 1.017 (1.001-1.035); Squamous Epithelial Cell Urine Rare /hpf (Few); Urobilinogen Urine Negative mg/dL (<2.0); WBC Urine 0-3 /hpf
--- NOTE | 2020-09-12 22:19 | ED.DIZZY ---
HPI - Dizziness General Chief Complaint: Dizziness Stated Complaint: Dizziness Time Seen by Provider: 09/12/20 21:42 Source: patient Mode of arrival: wheelchair Limitations: no limitations History of Present Illness HPI Narrative: This is a 55 year old female that presents to the ER for lightheadedness since this morning. Reports she feels lightheaded when she stands up. Reports she has had several episodes of diarrhea. Associated with nausea and vomiting. Reports she had a syncopal episode today. Reports she was walking and started to feel lightheaded and passed out. Reports hitting her head on the doorknob. Reports a wound on the bottom of her right foot that she is following with podiatry for. Reports this wound is improved. Denies fever, chest pain, shortness of breath, or dysuria. Related Data Home Medications Medication Instructions Recorded Confirmed Rexulti 4 mg PO DAILY 11/04/19 06/10/20 duloxetine [Cymbalta] 60 mg PO DAILY 11/04/19 06/10/20 glimepiride 4 mg PO BID 11/04/19 06/10/20 trazodone 150 mg PO HS PRN 11/04/19 06/10/20 Humalog KwikPen Insulin See Rx Instructions .ROUTE .COMPLEX 02/14/20 06/10/20 Januvia 100 mg PO DAILY 02/14/20 06/10/20 atorvastatin 80 mg PO QPM 02/14/20 06/10/20 bupropion HCl 300 mg PO DAILY 02/14/20 06/10/20 ergocalciferol (vitamin D2) 50,000 unit PO WEEKLY 02/14/20 06/10/20 [Vitamin D2] lisinopril 10 mg PO DAILY 02/14/20 06/10/20 Lantus U-100 Insulin 50 unit SUBCUT DAILY 06/10/20 06/10/20 eszopiclone 3 mg PO HS PRN 06/10/20 06/10/20 gabapentin 600 mg PO DAILY 06/10/20 06/10/20 Allergies Allergy/AdvReac Type Severity Reaction Status Date / Time povidone-iodine Allergy Intermediate rash Verified 02/14/20 16:47 soap [From Betadine] Allergy Rash Verified 09/12/20 21:32 Review of Systems Review of Systems: Narrative: CONSTITUTIONAL: Denies fever CARDIOVASCULAR: Denies chest pain, palpitations RESPIRATORY: Denies cough or dyspnea. GASTROINTESTINAL: Reports abdominal pain, nausea, vomiting, and diarrhea. GENITOURINARY: Denies dysuria NEUROLOGIC: Denies headache, numbness, or weakness. All systems reviewed & are unremarkable except as noted in HPI and below PMFSH Past Medical History Medical History (Updated 09/13/20 @ 00:43 by Britney Thomas PA-C) Bipolar disorder Chronic back pain Chronic obstructive pulmonary disease Depression with anxiety Diabetic neuropathy Diabetic peripheral neuropathy Essential hypertension Fibromyalgia Fracture Right ankle with chronic deformity. Gastroesophageal reflux disease History of blood transfusion Hyperlipidemia Insulin dependent diabetes mellitus Hemoglobin A1c was 13.1% on 02/14/2020. Irritable bowel syndrome Obstructive sleep apnea Osteoarthritis Pneumonia Post-menopausal Tobacco dependence Tubal Urinary tract infection Surgical History Surgical History History of breast biopsy left breast History of cardiac catheterization History of cholecystectomy History of dilatation and curettage History of hysterectomy History of tubal ligation History of umbilical hernia repair Status post ORIF of fracture of ankle Right ankle Family History Family History Father Hypertension due to motor vehicle traffic accident Grandparent Diabetes mellitus Other Diabetes mellitus Mother due to motor vehicle traffic accident Other Family history of heart disease in male family member before age 55 Social History Social History Social History: The patient is and lives in [place] with her . She smoked 1.5 packs of cigarettes per day for many years, but for the last 6 months she has been smoking up to 3 packs of cigarettes per day due to stress. No excessive alcohol use. She denies illicit drug use. She designates her
[2020-09-12 23:03] LABS: Lactic Acid Reflex 3.1 mmol/L (0.7-2.1)
[2020-09-12 23:04] LABS: Prothrombin Time 14.1 Seconds (11.1-14.7)
[2020-09-12 23:05] LABS: Partial Thromboplastin Time 25.8 SECONDS (22.3-36.8)
[2020-09-12 23:07] LABS: CRP 2.9 mg/dL (<1.0); Magnesium 1.6 mg/dL (1.6-2.3); Phosphorus 4.9 mg/dL (2.5-4.5)
[2020-09-12 23:08] LABS: Beta-Hydroxybutyrate/Acetoacetate 0.09 mmol/L (0.02-0.27)
[2020-09-12 23:17] LABS: Troponin I < 0.012 ng/mL (0.000-0.034)
[2020-09-13] VITALS (25 sets, daily range): BP systolic 96–124; BP diastolic 51–74; PULSE 83–105; RESP 14–30; TEMP 36–37; O2SAT 93–100; BMI 33.5
[2020-09-13 00:22] LABS: Alveolar/Arterial O2 Gradient 28.7 mmHg; Base Excess ABG -5.4 mEq/l (+/-2.0); Device ROOM AIR; Fractional Inspired Oxygen 21 %; HCO3 ABG 18.7 mEq/l (22.0-26.0); Modified Allen's Test Pass; Oxygen Content ABG 16.6 %vol (16.0-22.0); Oxygen Saturation ABG 96.1 % (95.0-100.0); Oxyhemoglobin 88.5 % THb (90.0-100.0); PCO2 ABG 32.3 mmHg (35.0-45.0); PO2 ABG 82.4 mmHg (80.0-100.0); PO2 FiO2 Ratio Arterial Blood 3.92 %; Site Drawn RIGHT RADIAL; Total Hemoglobin 13.3 g/dL (12.0-18.0)
[2020-09-13] MEDS: SODIUM CHLORIDE 0.9% IV 1,000 ML 999 ML IV CONT (01:40)
[2020-09-13 01:50] LABS: Reflex Lactic Acid Yes or No Add Lactic
[2020-09-13 02:16] LABS: Glucose Point of Care 439 (65-105)
--- NOTE | 2020-09-13 03:34 | PM.IMHP ---
H&P: HPI History of Present Illness Date/Time: 09/13/20 03:34 Chief Complaint: Syncope and collapse today Narrative: This is a pleasant 55-year-old diabetic female with known history of chronic hypertension, bipolar disorder, and chronic right foot diabetic wound which this patient states has been improving. today she presented to the hospital with a complaint of passing out today and lightheadedness. The patient reports that when she stands up she feels lightheaded and today she stood up and walk to the door to check her mail by the time she got to the door she was suddenly on the floor. She denies any chest pain or shortness of breath before passing out. She is known to have chronic diarrhea which she described as foul smelling and watery. She reports having 4 very loose watery stools today. She is known to have been on cephalexin last month although she can't tell me the reason. Associated symptoms today did include nausea and vomiting. The patient is unsure for how long she was out for on the ground. When she woke up she did have pain on the side of her face where she believe she had a doorknob as well as her left knee. She denies any recent fevers, headache, sore throat, cough, shortness of breath, chest pain, palpitations, abdominal pain, dysuria, hematuria, rectal bleeding, lower extremity swelling, or focal neurological deficits. The patient was initially found to have blood pressures of 80s over 40s on arrival to the emergency room this evening. She was also found to be severely septic with tachycardia, tachypnea, elevated white blood cell count of 27,700, and elevated lactic acid of 3.1. She was also found to be in acute renal failure with an elevated creatinine of 1.8 as well as hypokalemic with potassium of 2.7. the patient was treated emergency room with 3 L of normal saline IV bolus as well as a 40 meq K rider, and wide-spectrum antibiotics. On my encounter with the patient she states that she feels much better. Her blood pressure is now 110s over 60s. She has no other specific complaints at this time. Review of Systems Review of Systems: All systems reviewed & are unremarkable except as noted in HPI and below PMFSH Past Medical History Medical History (Updated 09/13/20 @ 03:48 by Shayne Sawant MD) Bipolar disorder Chronic back pain Chronic obstructive pulmonary disease Depression with anxiety Diabetic neuropathy Diabetic peripheral neuropathy Essential hypertension Fibromyalgia Fracture Right ankle with chronic deformity. Gastroesophageal reflux disease History of blood transfusion Hyperlipidemia Insulin dependent diabetes mellitus Hemoglobin A1c was 13.1% on 02/14/2020. Irritable bowel syndrome Obstructive sleep apnea Osteoarthritis Pneumonia Post-menopausal Tobacco dependence Tubal Urinary tract infection Surgical History Surgical History History of breast biopsy left breast History of cardiac catheterization History of cholecystectomy History of dilatation and curettage History of hysterectomy History of tubal ligation History of umbilical hernia repair Status post ORIF of fracture of ankle Right ankle Family History Family History Father due to motor vehicle traffic accident Hypertension Bowel cancer Grandparent Diabetes mellitus Other Diabetes mellitus Mother due to motor vehicle traffic accident Other Family history of heart disease in male family member before age 55 Social History Social History Social History: The patient is and lives in [place] with her . She smoked 1.5 packs of cigarettes per day for many years, but for the last 6 months she has been smoking up to 3 packs of cigarettes per day due to stress. No excessive alcohol use. She denies illicit drug u
[2020-09-13] MEDS: SODIUM CHLORIDE 0.9% IV 1,000 ML 125 ML IV CONT ×2 (03:39→14:59)
[2020-09-13 03:49] LABS: Lactic Acid 2.9 mmol/L (0.7-2.1)
[2020-09-13 04:10] LABS: Anion Gap 8 mmol/L (8-16); Blood Urea Nitrogen 12 mg/dL (7-17); Calcium 7.9 mg/dL (8.4-10.2); Carbon Dioxide 23 mmol/L (22-30); Chloride 90 mmol/L (98-107); Estimated CRCL calculation 54 ml/min; Estimated Glomerular Filt Rate 43; Glucose 365 mg/dL (65-105); Potassium 2.9 mmol/L (3.4-5.0); Sodium 121 mmol/L (137-145)
--- NOTE | 2020-09-13 04:10 | PC.NURSE ---
This patient, Jeanette Peres, was admitted to IMU Room 200-01. Patient/family oriented to hospital policies and general routines including ID bracelet, bed and alarms, visiting hours, pain management, procedures, bathroom and other care routines, personal items, smoking policy, room service/diet, and visiting hours. Information on how to activate the Rapid Response Team has been discussed. Patient/Family are encouraged to report perceived risks to care and to ask questions if they do not understand what they are told or what they should do.
[2020-09-13 05:05] LABS: Basophils Absolute Auto 0.1 K/mm3 (0.0-0.1); Basophils Percent Auto 0.3 % (0.2-1.2); Eosinophils Absolute Auto 0.2 K/mm3 (0-0.3); Hematocrit 35.5 % (37.0-47.0); Hemoglobin 12.5 g/dL (12.0-15.0); Immature Granulocyte Absolute 0.16 K/mm3 (0.00-0.031); Immature Granulocyte Percent A 0.9 % (0-0.5); Lymphocytes Absolute Auto 3.93 K/mm3 (0.9-3.2); Lymphocytes Percent Auto 22.2 % (18.3-44.2); Mean Corpuscular HGB Conc 35.2 g/dl (32-36); Mean Corpuscular Hemoglobin 30.4 pg (26-34); Mean Corpuscular Volume 86.4 fl (80-100); Mean Platelet Volume 11.8 fl (7.4-10.4); Monocytes Absolute Auto 0.6 K/mm3 (0.1-0.6); Monocytes Percent Auto 3.4 % (2.6-8.5); Neutrophils Absolute Auto 12.8 K/mm3 (1.3-6.7); Neutrophils Percent Auto 72.2 % (45.5-73.1); Platelet Count Result 205 k/mm3 (150-375); Red Blood Count 4.11 M/mm3 (4.2-5.4); White Blood Count 17.7 K/mm3 (4.5-10.0)
[2020-09-13 07:56] LABS: Glucose Point of Care 246 (65-105)
[2020-09-13] MEDS: INSULIN GLARGINE (*BKC) 100 UNITS/ML 40 UNITS SUB-Q (09:13)
[2020-09-13] MEDS: buPROPion HCL XL (24 HR) 150 MG TABCR 300 MG PO (10:02)
[2020-09-13] MEDS: DULoxetine HCL 60 MG CAPSULE.DR PO (10:03)
[2020-09-13] MEDS: ENOXAPARIN 40 MG/0.4 ML SYRINGE SUB-Q (10:03)
[2020-09-13] MEDS: SILVERGEL (ELTA) 45 ML 1 APPLIC TOPICAL (10:04)
[2020-09-13] MEDS: GABAPENTIN 300 MG CAPSULE 600 MG PO (10:04)
[2020-09-13] MEDS: ERGOCALCIFEROL 50,000 UNIT CAPSULE 50000 UNITS PO (10:04)
[2020-09-13 12:48] LABS: Glucose Point of Care 241 (65-105)
[2020-09-13] MEDS: INSULIN ASPART (*BKC) 100 UNITS/ML SUB-Q ×2 (13:09→17:29)
[2020-09-13 13:11] LABS: Sodium Urine Random 7 meq/L
[2020-09-13] MEDS: POTASSIUM CHLORIDE 20 MEQ TABLET 40 MEQ PO ×2 (14:55→20:39)
--- NOTE | 2020-09-13 15:40 | PM.IMPN ---
Progress Note: A&P Assessment and Plan (1) Syncope and collapse: Code(s): R55 - Syncope and collapse Status: Acute Assessment and Plan: Suspect secondary to intravascular volume depletion with hypotension initially on admission. Aggressive hydration had hold MAG-inhibitor, noncontrast CT of head unremarkable (2) Severe sepsis: Code(s): A41.9 - Sepsis, unspecified organism; R65.20 - Severe sepsis without septic shock Status: Acute Assessment and Plan: Stool cultures are pending but no other obvious source of infection. Chronic right heel wound looks to be healing properly (3) Acute kidney failure: Qualifiers: Acute renal failure type: unspecified Qualified Code(s): N17.9 - Acute kidney failure, unspecified Code(s): N17.9 - Acute kidney failure, unspecified Status: Acute Assessment and Plan: Probably all pre renal and continue hydration and follow-up creatinine. If does not fall appropriately then renal sonogram (4) Diabetic infection of right foot: Code(s): E11.628 - Type 2 diabetes mellitus with other skin complications; L08.9 - Local infection of the skin and subcutaneous tissue, unspecified Status: Acute Assessment and Plan: As above continue local care and will follow-up with wound clinic be in [place] (5) Diabetes mellitus with hyperglycemia: Qualifiers: Diabetes mellitus type: type 2 Diabetes mellitus half-way insulin use: with intermodal dispatcher use Qualified Code(s): E11.65 - Type 2 diabetes mellitus with hyperglycemia; Z79.4 - termite treater (current) use of insulin Code(s): E11.65 - Type 2 diabetes mellitus with hyperglycemia Status: Acute Assessment and Plan: Continue Lantus and sliding scale and obtain A1c Hold oral hypoglycemics (6) Hyponatremia: Code(s): E87.1 - Hypo-osmolality and hyponatremia Status: Acute Assessment and Plan: Suspect from dehydration. Check urine sodium and continue hydration saline (7) Hypokalemia: Code(s): E87.6 - Hypokalemia Status: Acute Assessment and Plan: Aggressive replacement could have precipitated arrhythmia though it seems all the simple orthostasis, continue to monitor (8) Bipolar disorder: Code(s): F31.9 - Bipolar disorder, unspecified Status: Acute Assessment and Plan: Continue her usual medications (9) Essential hypertension: Code(s): I10 - Essential (primary) hypertension Status: Chronic Assessment and Plan: Lisinopril on hold (10) Tobacco dependence: Code(s): F17.200 - Nicotine dependence, unspecified, uncomplicated Status: Chronic Assessment and Plan: Nicotine patch if desired Subjective Date/time seen: 09/13/20 15:40 Interval history: Date of visit 09/13. 55-year-old hypertensive bipolar type 2 diabetic presented to the emergency room after having syncopal episode. She states she had been getting lightheaded when she gets up and got up to go across the floor and passed out. Here she had leukocytosis hyponatremia, hypokalemia, with elevated creatinine and was admitted for evaluation treatment of the same. CT scan of chest abdomen and pelvis showed no obvious source of infection and she was cultured and placed on broad-spectrum antibiotics. Lactic acid was slightly elevated. She states she feels much better this a.m. after hydration and is hungry. Exam Narrative: Exam Narrative: Blood pressure 122/66 pulse is 92 saturating 99% on room air afebrile Pupils equal reactive light sclera anicteric Lungs clear CV regular rate rhythm Abdomen is soft bowel sounds normal to hyperactive nontender Extremities without edema dorsalis pedis posterior tibial 1+ left throughout 1+ right Right heel there is that open chronic wound appears clean about 4 x 4 cm Neuro alert cooperative no focal deficits Objective Data Vital Signs Vital Signs: Vital Signs - 24 hr 09/12/20 21
--- NOTE | 2020-09-13 15:40 | PC.NURSE ---
This patient, Jeanette Peres, was received from IMU on 09/13/20 at 1541. Patient/family oriented to unit policies and routines. Report received from CESILIA Desai.
[2020-09-13] MEDS: ATORVASTATIN 40 MG TABLET 80 MG PO (17:31)
[2020-09-13 17:37] LABS: Glucose Point of Care 206 (65-105)
[2020-09-13 18:56] LABS: Lactic Acid Reflex 2.1 mmol/L (0.7-2.1)
[2020-09-13 19:04] LABS: Albumin Level 3.3 g/dL (3.5-5.1); Anion Gap 9 mmol/L (8-16); Blood Urea Nitrogen 10 mg/dL (7-17); Calcium 8.6 mg/dL (8.4-10.2); Carbon Dioxide 22 mmol/L (22-30); Chloride 101 mmol/L (98-107); Estimated CRCL calculation 76 ml/min; Estimated Glomerular Filt Rate > 60; Glucose 183 mg/dL (65-105); Phosphorus 3.9 mg/dL (2.5-4.5); Potassium 3.3 mmol/L (3.4-5.0); Sodium 132 mmol/L (137-145)
[2020-09-13 20:52] LABS: Glucose Point of Care 254 (65-105)
[2020-09-13 21:43] LABS: Reflex Lactic Acid Yes or No Add Lactic
[2020-09-13 22:35] LABS: Lactic Acid 1.9 mmol/L (0.7-2.1)
[2020-09-14] VITALS: BP 128/66; PULSE 103; PULSE 104; RESP 18; TEMP 36.8; O2SAT 92
[2020-09-14 04:00] VITALS: BP 131/72; PULSE 96; PULSE 98; RESP 20; TEMP 36.3; O2SAT 94
[2020-09-14 05:57] LABS: Basophils Percent Auto 0.4 % (0.2-1.2); Eosinophils Absolute Auto 0.1 K/mm3 (0-0.3); Eosinophils Percent Auto 1.3 % (0-4.4); Hematocrit 34.8 % (37.0-47.0); Hemoglobin 11.8 g/dL (12.0-15.0); Immature Granulocyte Absolute 0.06 K/mm3 (0.00-0.031); Immature Granulocyte Percent A 0.6 % (0-0.5); Lymphocytes Percent Auto 29.8 % (18.3-44.2); Mean Corpuscular HGB Conc 33.9 g/dl (32-36); Mean Corpuscular Hemoglobin 29.9 pg (26-34); Mean Corpuscular Volume 88.3 fl (80-100); Mean Platelet Volume 11.5 fl (7.4-10.4); Monocytes Absolute Auto 0.4 K/mm3 (0.1-0.6); Monocytes Percent Auto 4.4 % (2.6-8.5); Neutrophils Absolute Auto 6.4 K/mm3 (1.3-6.7); Neutrophils Percent Auto 63.5 % (45.5-73.1); Platelet Count Result 220 k/mm3 (150-375); Red Blood Count 3.94 M/mm3 (4.2-5.4); Red Cell Distribution Width 14.6 % (11.5-14.5); White Blood Count 10.1 K/mm3 (4.5-10.0)
[2020-09-14 06:19] LABS: Alanine Aminotransferase 12 U/L (4-35); Alkaline Phosphatase 120 U/L (38-126); Anion Gap 7 mmol/L (8-16); Aspartate Amino Transferase 18 U/L (14-36); Bilirubin,Total 0.3 mg/dL (0.2-1.3); Blood Urea Nitrogen 9 mg/dL (7-17); Calcium 8.6 mg/dL (8.4-10.2); Carbon Dioxide 22 mmol/L (22-30); Chloride 104 mmol/L (98-107); Estimated CRCL calculation 85 ml/min; Estimated Glomerular Filt Rate > 60; Glucose 143 mg/dL (65-105); Phosphorus 4.3 mg/dL (2.5-4.5); Potassium 3.3 mmol/L (3.4-5.0); Sodium 133 mmol/L (137-145)
[2020-09-14 06:26] LABS: Hemoglobin A1C 10.7 % (<5.7)
--- NOTE | 2020-09-14 06:53 | PC.NURSE ---
sent stool to lab 09/13/2020. Per lab not enough stool was collected for c-diff lab. Re-entered order and new specimen collected
[2020-09-14 07:39] LABS: Glucose Point of Care 152 (65-105)
[2020-09-14 08:00] VITALS: PULSE 97
[2020-09-14] MEDS: ENOXAPARIN 40 MG/0.4 ML SYRINGE SUB-Q (08:37)
[2020-09-14] MEDS: GABAPENTIN 300 MG CAPSULE 600 MG PO (08:37)
[2020-09-14] MEDS: POTASSIUM CHLORIDE 20 MEQ TABLET 40 MEQ PO (08:37)
[2020-09-14] MEDS: DULoxetine HCL 60 MG CAPSULE.DR PO (08:37)
[2020-09-14] MEDS: buPROPion HCL XL (24 HR) 150 MG TABCR 300 MG PO (08:37)
[2020-09-14] MEDS: INSULIN GLARGINE (*BKC) 100 UNITS/ML 40 UNITS SUB-Q (08:38)
[2020-09-14] MEDS: SILVERGEL (ELTA) 45 ML 1 APPLIC TOPICAL (08:39)
[2020-09-14 09:45] VITALS: BP 134/68; PULSE 97; RESP 18; TEMP 36.5; O2SAT 96
[2020-09-14 11:54] LABS: Glucose Point of Care 169 (65-105)
--- NOTE | 2020-09-14 18:17 | PM.DS ---
DS: Admitting Diagnosis Admitting Diagnosis Admitting Diagnosis: Syncope with dehydration, hypokalemia, and hyponatremia DS: Discharge Diagnosis Discharge Diagnosis (1) Syncope and collapse: Code(s): R55 - Syncope and collapse Status: Acute Assessment and Plan: secondary to acute dehydration. With hydration blood pressure willis and orthostasis subsided. No of arrhythmia noted on monitor (2) Severe sepsis: Code(s): A41.9 - Sepsis, unspecified organism; R65.20 - Severe sepsis without septic shock Status: Acute Assessment and Plan: No clear source of sepsis at this time. May be secondary to acute dehydration. She has recieved a dose of broad spectrum IV antibiotics. blood and urine cultures negative Stool cultures were still pending at discharge. But WBC fell to 10.1 Patient relates that she has had loose stools for further indefinite amount of time Since no organism cultured probable SIRS and not true sepsis (3) Acute kidney failure: Qualifiers: Acute renal failure type: unspecified Qualified Code(s): N17.9 - Acute kidney failure, unspecified Code(s): N17.9 - Acute kidney failure, unspecified Status: Acute Assessment and Plan: With hydration BUN fell to 9 and creatinine 0.8 at discharge. (4) Acute dehydration: Code(s): E86.0 - Dehydration Status: Acute Assessment and Plan: As above pre renal azotemia (5) Diabetic infection of right foot: Code(s): E11.628 - Type 2 diabetes mellitus with other skin complications; L08.9 - Local infection of the skin and subcutaneous tissue, unspecified Status: Acute Assessment and Plan: Appears to be healing well. 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 With lesser dose of her usual Lantus and withholding oral oral hypoglycemics her fasting blood sugar was only 143 the day of discharge. Stressed compliance with diet (7) Leukocytosis: Qualifiers: Leukocytosis type: unspecified Qualified Code(s): D72.829 - Elevated white blood cell count, unspecified Code(s): D72.829 - Elevated white blood cell count, unspecified Status: Acute Assessment and Plan: Probable stress related no obvious infectious source (8) Hyponatremia: Code(s): E87.1 - Hypo-osmolality and hyponatremia Status: Acute Assessment and Plan: Likely seconadry to dehydration. Urine sodium only 7. With saline hydration sodium was 133 at discharge. She had a 12 mil equivalents increase in sodium level over 26-28 hours which was just at the upper limits of acceptability (9) Hypokalemia: Code(s): E87.6 - Hypokalemia Status: Acute Assessment and Plan: Potassium a.m. of discharge 3.3 and she receive 40 more mEq p.o. Basic metabolic profile drawn in 7-10 days (10) Bipolar disorder: Code(s): F31.9 - Bipolar disorder, unspecified Status: Acute Assessment and Plan: Resume home medications. (11) Essential hypertension: Code(s): I10 - Essential (primary) hypertension Status: Chronic Assessment and Plan: Resume home medications low-dose MAG-inhibitor at discharge (12) Tobacco dependence: Code(s): F17.200 - Nicotine dependence, unspecified, uncomplicated Status: Chronic Assessment and Plan: Dr. Sawant counseled the patient regarding tobacco cessation for 4 minutes. DS: Summary Hospital Course Hospital Course: 55-year-old type 2 diabetic on insulin admitted
[2020-09-20 18:26] LABS: Norovirus RNA PCR, Stool NOT DETECTED
[2020-09-20 22:44] LABS: Rotavirus Stool Not Detected
== END 2020-09-14 12:30 | disposition home or self-care (01) | DRG 641 ==
LOC: ANHED 09-13 00:43 → ANHIMU 09-13 02:59 → ANH2MED 09-14 09:56 → ANHIMU 09-18 09:14
PROVIDERS: Physician Assistant; Admitting Provider Family Medicine; Emergency Provider Emergency Medicine; PCP Family Medicine; Visit Provider Internal Medicine
DX: E87.1 Hypo-osmolality and hyponatremia (principal); N17.9 Acute kidney failure, unspecified; R65.10 Systemic inflammatory response syndrome (SIRS) of non-infectious origin without acute organ dysfunction; L97.412 Non-pressure chronic ulcer of right heel and midfoot with fat layer exposed; E11.621 Type 2 diabetes mellitus with foot ulcer; E86.0 Dehydration; F17.210 Nicotine dependence, cigarettes, uncomplicated; F31.9 Bipolar disorder, unspecified; F41.8 Other specified anxiety disorders; E11.42 Type 2 diabetes mellitus with diabetic polyneuropathy; K58.9 Irritable bowel syndrome, unspecified; K21.9 Gastro-esophageal reflux disease without esophagitis; E78.5 Hyperlipidemia, unspecified; L08.9 Local infection of the skin and subcutaneous tissue, unspecified; E87.6 Hypokalemia
CPT/HCPCS: 36415; 36600; 51701; 70450; 71046; 71250; 73630; 74176; 80048; 80053; 80069; 80076; 81001; 82010; 82805; 83036; 83605; 83735; 84100; 84300; 84484; 85025; 85610; 85730; 86140; 87040; 87045; 87046; 87070; 87147; 87186; 87205; 87324; 87425; 87427; 87798; 89055; 93005; 96361; 96365; 96375; 99285; A9270; J0743; J1650; J1815; J3370; J3480; J7030

== ENCOUNTER 2021-03-04 14:34 | Inpatient (IN) | payer OTHER, SELFPAY ==
[2021-03-04] VITALS (10 sets, daily range): BP systolic 92–130; BP diastolic 51–77; PULSE 86–107; RESP 18; TEMP 36.2–36.6; O2SAT 98–99
--- NOTE | 2021-03-04 14:35 | ECG_ITS ---
Measurements Intervals [place] Rate: 102 P: 0 MI: 182 QRS: -24 QRSD: 108 T: 62 QT: 355 QTc: 464 Interpretive Statements SINUS TACHYCARDIA INCOMPLETE RIGHT BUNDLE BRANCH BLOCK DELAYED PRECORDIAL R/S TRANSITION ST ELEVATION IN ANTEROLAT/INF LEADS- PROBABLY EARLY REPOLARIZATION BORDERLINE ECG Electronically Signed On 03-04-2021 19:12:14 CDT by Jun Navarro D.O.
[2021-03-04 14:59] LABS: Basophils Percent Auto 0.3 % (0.2-1.2); Eosinophils Absolute Auto 0.1 K/mm3 (0-0.3); Hematocrit 40.2 % (37.0-47.0); Hemoglobin 14.1 g/dL (12.0-15.0); Immature Granulocyte Absolute 0.05 K/mm3 (0.00-0.031); Immature Granulocyte Percent A 0.4 % (0-0.5); Lymphocytes Absolute Auto 2.96 K/mm3 (0.9-3.2); Mean Corpuscular HGB Conc 35.1 g/dl (32-36); Mean Corpuscular Hemoglobin 31.1 pg (26-34); Mean Corpuscular Volume 88.5 fl (80-100); Mean Platelet Volume 11.3 fl (7.4-10.4); Monocytes Absolute Auto 0.6 K/mm3 (0.1-0.6); Monocytes Percent Auto 4.8 % (2.6-8.5); Neutrophils Absolute Auto 9.1 K/mm3 (1.3-6.7); Neutrophils Percent Auto 70.5 % (45.5-73.1); Platelet Count Result 219 k/mm3 (150-375); Red Blood Count 4.54 M/mm3 (4.2-5.4); Red Cell Distribution Width 13.3 % (11.5-14.5); White Blood Count 12.9 K/mm3 (4.5-10.0)
[2021-03-04 15:15] LABS: Anion Gap 14 mmol/L (8-16); Blood Urea Nitrogen 25 mg/dL (7-17); Calcium 9.4 mg/dL (8.4-10.2); Carbon Dioxide 20 mmol/L (22-30); Chloride 90 mmol/L (98-107); Estimated CRCL calculation 63 ml/min; Estimated Glomerular Filt Rate 52; Glucose 348 mg/dL (65-105); Potassium 3.2 mmol/L (3.4-5.0); Sodium 124 mmol/L (137-145)
[2021-03-04] MEDS: SODIUM CHLORIDE 0.9% IV 1,000 ML 999 ML IV CONT ×2 (15:40→15:44)
[2021-03-04 16:10] LABS: Alveolar/Arterial O2 Gradient 21.4 mmHg; Base Excess ABG -1.5 mEq/l (+/-2.0); Carboxyhemoglobin 7.9 % THb (0-2.0); Fractional Inspired Oxygen 21 %; HCO3 ABG 22.3 mEq/l (22.0-26.0); Methemoglobin ABG 0.1 %THb (0-1.5); Oxygen Content ABG 17.1 %vol (16.0-22.0); Oxygen Saturation ABG 96.9 % (95.0-100.0); Oxyhemoglobin 88.9 % THb (90.0-100.0); PCO2 ABG 34.7 mmHg (35.0-45.0); PO2 ABG 86.8 mmHg (80.0-100.0); PO2 FiO2 Ratio Arterial Blood 4.13 %; Reduced Hemoglobin 3.1 %THb (0-5.0); Total Hemoglobin 13.6 g/dL (12.0-18.0); pH ABG 7.425 (7.350-7.450)
[2021-03-04 16:12] LABS: Modified Allen's Test Pass; Site Drawn LEFT RADIAL
[2021-03-04 16:13] LABS: Device ROOM AIR
--- NOTE | 2021-03-04 16:39 | ED.DIZZY ---
HPI - Dizziness General Chief Complaint: Dizziness Stated Complaint: Dizzy/Falls Time Seen by Provider: 03/04/21 15:02 History of Present Illness HPI Narrative: Patient is a 56-year-old female who presents ER for dizziness and falls. Patient reports today she got up 3 times and tried to walk and lined up on the ground. She did not lose consciousness. She was found to be hypotensive while in the ER. She reports her blood sugars have been running high for 3 days and she has had polyuria polydipsia. She took her long-acting Lantus today and then took 20 of short acting insulin with lunch. She is having no chest pain or chest pressure. Denies dysuria/diarrhea. Afebrile. Related Data Home Medications Medication Instructions Recorded Confirmed Rexulti 4 mg PO DAILY 11/04/19 09/13/20 duloxetine [Cymbalta] 60 mg PO DAILY 11/04/19 09/13/20 glimepiride 4 mg PO BID 11/04/19 09/13/20 trazodone 150 mg PO HS PRN 11/04/19 09/13/20 Humalog KwikPen Insulin See Rx Instructions .ROUTE .COMPLEX 02/14/20 09/13/20 Januvia 100 mg PO DAILY 02/14/20 09/13/20 atorvastatin 80 mg PO QPM 02/14/20 09/13/20 bupropion HCl 300 mg PO DAILY 02/14/20 09/13/20 ergocalciferol (vitamin D2) 50,000 unit PO WEEKLY 02/14/20 09/13/20 [Vitamin D2] lisinopril 10 mg PO DAILY 02/14/20 09/13/20 Lantus U-100 Insulin 50 unit SUBCUT DAILY 06/10/20 09/13/20 eszopiclone 3 mg PO HS PRN 06/10/20 09/13/20 gabapentin 600 mg PO DAILY 06/10/20 09/13/20 Allergies Allergy/AdvReac Type Severity Reaction Status Date / Time povidone-iodine Allergy Intermediate rash Verified 02/14/20 16:47 soap [From Betadine] Allergy Rash Verified 09/12/20 21:32 Review of Systems Review of Systems: All systems reviewed & are unremarkable except as noted in HPI and below Constitutional: Constitutional: Denies chills, Denies fever(s) and Reports weakness Cardiovascular: Cardiovascular: Denies chest pain and Denies rapid heart rate Gastrointestinal: Gastrointestinal: Denies abdominal pain, Denies nausea and Denies vomiting Genitourinary: Genitourinary: Denies hematuria, Reports nocturia and Denies dysuria Neurologic: Reports dizziness, Denies syncope, Denies focal weakness and Denies numbness [facility] Past Medical History Medical History (Updated 03/04/21 @ 17:23 by Jones Kelly MD) Bipolar disorder Chronic back pain Chronic obstructive pulmonary disease Depression with anxiety Diabetic neuropathy Diabetic peripheral neuropathy Essential hypertension Fibromyalgia Fracture Right ankle with chronic deformity. Gastroesophageal reflux disease History of blood transfusion Hyperlipidemia Insulin dependent diabetes mellitus Hemoglobin A1c was 13.1% on 02/14/2020. Irritable bowel syndrome Obstructive sleep apnea Osteoarthritis Pneumonia Post-menopausal Tobacco dependence Tubal Urinary tract infection Surgical History Surgical History History of breast biopsy left breast History of cardiac catheterization History of cholecystectomy History of dilatation and curettage History of hysterectomy History of tubal ligation History of umbilical hernia repair Status post ORIF of fracture of ankle Right ankle Family History Family History Father due to motor vehicle traffic accident Hypertension Bowel cancer Grandparent Diabetes mellitus Other Diabetes mellitus Mother due to motor vehicle traffic accident Other Family history of heart disease in male family member before age 55 Social History Social History Social History: The patient is and lives in [place] with her . She smoked 1.5 packs of cigarettes per day for many years, but for the last 6 months she has been smoking up to 3 packs of cigarettes per day due to stress. No excessive alcohol use. She denies il
[2021-03-04 17:19] LABS: Glucose Point of Care 216 mg/dl (65-105)
--- NOTE | 2021-03-04 20:22 | ADMGEN ---
This patient, Jeanette Peres, was admitted to [facility] Surg Room 316-01 at 1940. Patient/family oriented to hospital policies and general routines including ID bracelet, bed and alarms, visiting hours, pain management, procedures, bathroom and other care routines, personal items, smoking policy, room service/diet, and visiting hours. Information on how to activate the Rapid Response Team has been discussed. Patient/Family are encouraged to report perceived risks to care and to ask questions if they do not understand what they are told or what they should do.
[2021-03-04] MEDS: SODIUM CHLORIDE 0.9% IV 1,000 ML 125 ML IV CONT (22:15)
--- NOTE | 2021-03-05 02:46 | PM.IMHP ---
H&P: HPI History of Present Illness Date/Time: 03/05/21 02:46 Chief Complaint: Falls Narrative: This is a 56-year-old female with past medical history significant for type 2 diabetes mellitus, diabetic neuropathy. Patient presented to the emergency room after she has been having falls at home states that she feels very weak and her sugars have not been well controlled. She denies any fevers rigors chills cough sputum production pain or burning with urination no shortness of breath. No loss of consciousness patient has had polydipsia and polyphagia and polyuria, no chest pain no near syncope. Preliminary workup was significant for sodium of 124 and sugar in the 300's. Patient was admitted to the hospital in August of 2020 with similar issues and dehydration. Rest of the workup has been essentially unrevealing. Review of Systems Review of Systems: Narrative: Generalized weakness falling uncontrolled sugars polydipsia polyphasia polyuria Constitutional: Constitutional: Denies chills, Reports fatigue, Denies fever(s), Reports frequent falls, Denies malaise and Reports weakness Eyes: Eyes: Denies change in vision ENT: Denies nasal congestion, Denies nasal discharge and Denies nasal obstruction Cardiovascular: Cardiovascular: Denies chest pain, Denies edema, Denies lightheadedness, Denies radiating jaw, neck or arm pain, Denies palpitations and Denies dyspnea Respiratory: Respiratory: Denies cough, Denies dyspnea and Denies wheezing Gastrointestinal: Gastrointestinal: Denies diarrhea, Denies loose stools, Denies nausea and Denies vomiting Genitourinary: Genitourinary: Denies dysuria Musculoskeletal: Musculoskeletal: Reports muscle weakness Integumentary/Breasts: Skin/Breast: Denies rash Neurologic: Denies focal weakness and Denies Sensory deficit (Neuro) Psychiatric: Psychiatric: Reports no additional psychiatric complaints Endocrine: Endocrine: Reports no additional endocrine complaints Hematologic/Lymphatic: Hematologic/Lymphatic: Reports no additional hematologic/lymphatic complaints Allergic/Immunologic: Allergic/Immunologic: Reports no additional allergic/immunologic complaints [facility] Past Medical History Medical History (Updated 03/04/21 @ 17:23 by Jones Kelly MD) Bipolar disorder Chronic back pain Chronic obstructive pulmonary disease Depression with anxiety Diabetic neuropathy Diabetic peripheral neuropathy Essential hypertension Fibromyalgia Fracture Right ankle with chronic deformity. Gastroesophageal reflux disease History of blood transfusion Hyperlipidemia Insulin dependent diabetes mellitus Hemoglobin A1c was 13.1% on 02/14/2020. Irritable bowel syndrome Obstructive sleep apnea Osteoarthritis Pneumonia Post-menopausal Tobacco dependence Tubal Urinary tract infection Surgical History Surgical History History of breast biopsy left breast History of cardiac catheterization History of cholecystectomy History of dilatation and curettage History of hysterectomy History of tubal ligation History of umbilical hernia repair Status post ORIF of fracture of ankle Right ankle Family History Family History Father due to motor vehicle traffic accident Hypertension Bowel cancer Grandparent Diabetes mellitus Other Diabetes mellitus Mother due to motor vehicle traffic accident Other Family history of heart disease in male family member before age 55 Social History Social History Social History: The patient is and lives in [place] with her . She smoked 1.5 packs of cigarettes per day for many years, but for the last 6 months she has been smoking up to 3 packs of cigarettes per day due to stress. No excessive alcohol use. She denies illicit drug use. She designates her Da
[2021-03-05 05:34] LABS: Glucose Point of Care 189 mg/dl (65-105)
[2021-03-05 06:00] VITALS: BP 122/71; PULSE 82; RESP 18; TEMP 36.3; O2SAT 97
[2021-03-05 07:57] LABS: Glucose Point of Care 176 mg/dl (65-105)
[2021-03-05 09:02] LABS: Hematocrit 38.1 % (37.0-47.0); Hemoglobin 12.9 g/dL (12.0-15.0); Mean Corpuscular HGB Conc 33.9 g/dl (32-36); Mean Corpuscular Hemoglobin 30.2 pg (26-34); Mean Corpuscular Volume 89.2 fl (80-100); Mean Platelet Volume 11.5 fl (7.4-10.4); Platelet Count Result 208 k/mm3 (150-375); Red Blood Count 4.27 M/mm3 (4.2-5.4); Red Cell Distribution Width 13.4 % (11.5-14.5); White Blood Count 8.1 K/mm3 (4.5-10.0)
[2021-03-05] MEDS: SODIUM CHLORIDE 0.9% IV 1,000 ML 125 ML IV CONT (09:14)
[2021-03-05 09:18] LABS: Anion Gap 7 mmol/L (8-16); Blood Urea Nitrogen 15 mg/dL (7-17); Calcium 9.1 mg/dL (8.4-10.2); Carbon Dioxide 26 mmol/L (22-30); Chloride 103 mmol/L (98-107); Estimated CRCL calculation 96 ml/min; Estimated Glomerular Filt Rate > 60; Glucose 165 mg/dL (65-105); Potassium 3.5 mmol/L (3.4-5.0); Sodium 136 mmol/L (137-145)
[2021-03-05] MEDS: buPROPion HCL XL (24 HR) 150 MG TABCR 300 MG PO (09:20)
[2021-03-05] MEDS: GABAPENTIN 300 MG CAPSULE 600 MG PO (09:20)
[2021-03-05] MEDS: traZODone HCL 50 MG TABLET 150 MG PO (09:21)
[2021-03-05] MEDS: DULoxetine HCL 60 MG CAPSULE.DR PO (09:21)
[2021-03-05] MEDS: INSULIN GLARGINE (*BKC) 100 UNITS/ML 50 UNITS SUB-Q (09:28)
[2021-03-05 11:31] LABS: Glucose Point of Care 213 mg/dl (65-105)
[2021-03-05] MEDS: INSULIN ASPART (*BKC) 100 UNITS/ML SUB-Q (11:37)
[2021-03-05 14:00] VITALS: BP 109/56; PULSE 88; RESP 20; TEMP 37.1; O2SAT 96
[2021-03-05 14:05] VITALS: BP 105/56
[2021-03-05 14:10] VITALS: BP 101/60
--- NOTE | 2021-03-05 16:13 | PM.DS ---
DS: Admitting Diagnosis Admitting Diagnosis Admitting Diagnosis: Acute dehydration DS: Discharge Diagnosis Discharge Diagnosis (1) Acute dehydration: Code(s): E86.0 - Dehydration Status: Acute Assessment and Plan: Secondary to poor oral intake. She was rehydrated with IV fluids and was able to tolerate PO intake. Encouraged adequate hydration. (2) Hypotension: Code(s): I95.9 - Hypotension, unspecified Status: Acute Assessment and Plan: Likely secondary to acute dehydration as above. Orthostatics negative. Blood pressures improved with IV fluid rehydration. Lisinopril placed on hold. Encouraged monitoring of blood pressures at home and follow-up with PCP for medication adjustment as needed. (3) Hyponatremia: Code(s): E87.1 - Hypo-osmolality and hyponatremia Status: Acute Assessment and Plan: Again likely due to dehydration. Sodium 124 at presentation, 128 when corrected for hyperglycemia, and improved with IV fluids. She was asymptomatic. Encourage p.o. fluid intake as above. (4) Hypokalemia: Code(s): E87.6 - Hypokalemia Status: Acute Assessment and Plan: Resolved. Potassium was monitored and supplemented. 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 A1c is 13.3. blood sugars initially elevated up to 348, but did improve to the 150s-200 range. No anion gap or evidence of DKA. She admitted that she is not consistent with taking her insulin. I had a long conversation with both the patient and her daughter about the need for strict glycemic control and medication adherence. Spoke with patient's PCP via phone about elevated A1c. At this time, no changes made to her regimen because she had not been taking consistently. She needs to start taking basal-bolus insulin as prescribed and record her blood sugars. Continue Januvia and glimepiride. Follow up with PCP in 1 week for review. I spent 10 minutes talking with both patient and her daughter about importance of compliance with glycemic regimen. Patient agreeable to take her medication. She notes that she will make dietary changes and she knows what she needs to eat . She declined diabetes education or dietary counseling, despite me recommending this several times. (6) Tobacco dependence: Code(s): F17.200 - Nicotine dependence, unspecified, uncomplicated Status: Chronic Assessment and Plan: She smokes 1.5 packs per day. she was educated on smoking cessation and verbalized understanding. (7) Noncompliance with medication regimen: Code(s): Z91.14 - Patient's other noncompliance with medication regimen Status: Acute Assessment and Plan: She admits to not taking her insulin and missing medications. Long discussion with patient and daughter as described above. Recommend assistance with medication including sorting medications into daily pillbox. Close follow-up with PCP to reinforce compliance. DS: Summary Hospital Course Hospital Course: date of admission: 03/04/2021 date of discharge: 03/05/2021 Jeanette Peres is a 56-year-old female with history of uncontrolled type 2 diabetes mellitus, hypertension, COPD, hyperlipidemia, MILIND, and tobacco dependence who presented to the emergency department on 03/04/2021 due to concerns for hyperglycemia, stating that her blood sugars had been running high for 3 days and she felt very weak to the point where she was not able to get up from a seated position. upon presentation to the emergency department, her blood pressure was low at 102/56, she w
[2021-03-05 16:40] LABS: Hemoglobin A1C 13.3 % (<5.7)
== END 2021-03-05 18:09 | disposition home or self-care (01) | DRG 641 ==
LOC: ANHED 17:23 → ANH3MEDSUR 19:30
PROVIDERS: Emergency Medicine; Admitting Provider Internal Medicine; Emergency Provider Emergency Medicine; PCP Family Medicine; Visit Provider Physician Assistant
DX: E86.0 Dehydration (principal); I95.9 Hypotension, unspecified; E87.6 Hypokalemia; E11.65 Type 2 diabetes mellitus with hyperglycemia; E11.42 Type 2 diabetes mellitus with diabetic polyneuropathy; I10 Essential (primary) hypertension; M79.7 Fibromyalgia; J44.9 Chronic obstructive pulmonary disease, unspecified; F17.210 Nicotine dependence, cigarettes, uncomplicated; G47.33 Obstructive sleep apnea (adult) (pediatric); E78.5 Hyperlipidemia, unspecified; F31.9 Bipolar disorder, unspecified; F41.8 Other specified anxiety disorders; Z79.4 Long term (current) use of insulin; Z79.899 Other long term (current) drug therapy; Z91.14 Patient's other noncompliance with medication regimen
CPT/HCPCS: 36415; 36600; 80048; 82375; 82805; 82948; 83036; 83050; 85025; 85027; 93005; 96360; 97161; 97165; 99285; A9270; J1815; J7030

== ENCOUNTER 2021-05-05 22:05 | Inpatient (IN) | payer OTHER, SELFPAY ==
--- NOTE | ~2021-05-05 | XR_ITS ---
XR chest 1V portable DATE: 05/06/2021 00:38 INDICATION: Hyperglycemia TECHNIQUE: Portable AP chest on 05/06/2021 at 0032 hours COMPARISON: 09/12/2020 CT chest abdomen pelvis 09/12/2020 AP and lateral chest FINDINGS: Mild infiltrate and/atelectasis is suggested in the lower lung zones. No pleural effusion o r pneumothorax. Heart size is within normal range. There is aortic arch calcification. IMPRESSION: Mild infiltrate or atelectasis in the lower lung zones Reviewed, dictated and finalized at location A.
[2021-05-05 22:16] VITALS: BP 140/110; PULSE 107; RESP 16; TEMP 36.6; O2SAT 99
[2021-05-05 22:24] LABS: Glucose Point of Care > 500 mg/dl (65-105)
[2021-05-05 22:35] VITALS: BP 148/74; PULSE 97
[2021-05-05 22:38] VITALS: BP 144/77; PULSE 93
[2021-05-05 22:42] VITALS: BP 124/86; PULSE 105
[2021-05-05 22:47] LABS: Glucose Point of Care > 500 mg/dl (65-105)
[2021-05-05 22:51] LABS: Basophils Absolute Auto 0.1 K/mm3 (0.0-0.1); Basophils Percent Auto 0.4 % (0.2-1.2); Eosinophils Absolute Auto 0.1 K/mm3 (0-0.3); Eosinophils Percent Auto 0.4 % (0-4.4); Hematocrit 45.9 % (37.0-47.0); Hemoglobin 14.7 g/dL (12.0-15.0); Immature Granulocyte Absolute 0.06 K/mm3 (0.00-0.031); Immature Granulocyte Percent A 0.4 % (0-0.5); Lymphocytes Absolute Auto 2.41 K/mm3 (0.9-3.2); Lymphocytes Percent Auto 16.8 % (18.3-44.2); Mean Corpuscular Hemoglobin 29.7 pg (26-34); Mean Corpuscular Volume 92.7 fl (80-100); Mean Platelet Volume 12.3 fl (7.4-10.4); Monocytes Absolute Auto 0.7 K/mm3 (0.1-0.6); Monocytes Percent Auto 4.8 % (2.6-8.5); Neutrophils Absolute Auto 11.1 K/mm3 (1.3-6.7); Neutrophils Percent Auto 77.2 % (45.5-73.1); Platelet Count Result 277 k/mm3 (150-375); Red Blood Count 4.95 M/mm3 (4.2-5.4); White Blood Count 14.4 K/mm3 (4.5-10.0)
[2021-05-05 22:55] LABS: Add Urine Microscopic? YES; Appearance Urine Clear (Clear); Bilirubin Urine Negative (Negative); Blood Urine 1+ (Negative); Color Urine Colorless (Yellow); Glucose Urine UA 3+ mg/dL (Negative); Ketones Urine Negative (Negative); Leukocyte Esterase Ur Trace LEU/UL (Negative); Mucus Urine Rare /lpf; Nitrate Urine Negative (Negative); Protein Urine Negative (Negative); RBC Urine 0-2 /hpf (0-2); Specific Grav Ur 1.025 (1.001-1.035); Squamous Epithelial Cell Urine Rare /hpf (Few); Urobilinogen Urine Negative mg/dL (<2.0); WBC Urine 0-3 /hpf
--- NOTE | 2021-05-05 23:06 | PC.NURSE ---
Lab reports possible contamination and wanting Sodium redrawn. Sodium 108 and glucose >600. Tech to redraw at this time.
--- NOTE | 2021-05-05 23:09 | PC.NURSE ---
Called and spoke to lab to add on Beta Hydroxybut and Phos MG 230
[2021-05-05 23:21] LABS: Alveolar/Arterial O2 Gradient 41.9 mmHg; Base Excess ABG -2.4 mEq/l (+/-2.0); Carboxyhemoglobin 6.1 % THb (0-2.0); Fractional Inspired Oxygen 21 %; HCO3 ABG 17.7 mEq/l (22.0-26.0); Methemoglobin ABG 0.1 %THb (0-1.5); Oxygen Saturation ABG 97.4 % (95.0-100.0); Oxyhemoglobin 90.7 % THb (90.0-100.0); PO2 ABG 82.3 mmHg (80.0-100.0); PO2 FiO2 Ratio Arterial Blood 3.92 %; Reduced Hemoglobin 3.1 %THb (0-5.0); Total Hemoglobin 14.9 g/dL (12.0-18.0)
[2021-05-05 23:23] LABS: PCO2 ABG 21.3 mmHg (35.0-45.0); pH ABG 7.538 (7.350-7.450)
[2021-05-05 23:24] LABS: Device ROOM AIR; Modified Allen's Test Pass; Site Drawn LEFT RADIAL
[2021-05-05] MEDS: SODIUM CHLORIDE 0.9% IV 1,000 ML 999 ML IV CONT (23:24)
[2021-05-05] MEDS: INSULIN HUMAN REGULAR (*BKC) 100 UNITS/ML 10 UNITS IV PUSH (23:26)
--- NOTE | 2021-05-05 23:59 | PC.NURSE ---
GLUCOSE 1214 SODIUM 109 POTASSIUM 6.1
[2021-05-06] VITALS (8 sets, daily range): BP systolic 98–133; BP diastolic 56–85; PULSE 88–108; RESP 17–97; TEMP 36.2–36.9; O2SAT 96–98; BMI 30.6
[2021-05-06 00:01] LABS: Alanine Aminotransferase 27 U/L (4-35); Alkaline Phosphatase 274 U/L (38-126); Anion Gap 11 mmol/L (8-16); Aspartate Amino Transferase 39 U/L (14-36); Bilirubin,Total 0.7 mg/dL (0.2-1.3); Blood Urea Nitrogen 18 mg/dL (7-17); Calcium 9.3 mg/dL (8.4-10.2); Carbon Dioxide 17 mmol/L (22-30); Chloride 81 mmol/L (98-107); Estimated CRCL calculation 94 ml/min; Estimated Glomerular Filt Rate > 60; Glucose 1214 mg/dL (65-110); Lipase 149 U/L (23-300); Magnesium 1.8 mg/dL (1.6-2.3); Phosphorus 2.5 mg/dL (2.5-4.5); Potassium 6.1 mmol/L (3.4-5.0); Sodium 109 mmol/L (137-145)
[2021-05-06 00:15] LABS: Beta-Hydroxybutyrate/Acetoacetate 0.33 mmol/L (0.02-0.27)
--- NOTE | 2021-05-06 00:22 | ED.GENADULT ---
HPI - General Adult General Chief complaint: Nausea/Vomiting/Diarrhea Stated complaint: dehydrated Time Seen by Provider: 05/05/21 22:54 Source: patient and RN notes reviewed Mode of arrival: ambulatory Limitations: no limitations History of Present Illness HPI narrative: Patient is 56 years old white female came to the emergency room by private car complaining of nausea, vomiting and diarrhea on average 3-4 times a days for the last 3 days. Currently complaining of muscle aches. Patient denies any fever, chills, respiratory symptoms or headache. Patient type 2 diabetes on insulin shots. Patient denies any change of her medication lately. Related Data Home Medications Medication Instructions Recorded Confirmed Rexulti 4 mg PO DAILY 11/04/19 03/04/21 duloxetine [Cymbalta] 60 mg PO DAILY 11/04/19 03/04/21 glimepiride 4 mg PO BID 11/04/19 03/04/21 trazodone 150 mg PO HS PRN 11/04/19 03/04/21 Humalog KwikPen Insulin See Rx Instructions .ROUTE .COMPLEX 02/14/20 03/04/21 Januvia 100 mg PO DAILY 02/14/20 03/04/21 atorvastatin 80 mg PO QPM 02/14/20 03/04/21 bupropion HCl 300 mg PO DAILY 02/14/20 03/04/21 ergocalciferol (vitamin D2) 50,000 unit PO WEEKLY 02/14/20 03/04/21 [Vitamin D2] lisinopril 10 mg PO DAILY 02/14/20 03/04/21 eszopiclone 3 mg PO HS PRN 06/10/20 03/04/21 gabapentin 600 mg PO DAILY 06/10/20 03/04/21 Allergies Allergy/AdvReac Type Severity Reaction Status Date / Time povidone-iodine Allergy Intermediate rash Verified 05/05/21 22:45 soap [From Betadine] Allergy Rash Verified 05/05/21 22:45 Review of Systems Review of Systems: CONSTITUTIONAL: Denies fever, chills, or sweats. EYES: Denies visual changes, redness, or discharge. ENT: Denies rhinorrhea, congestion, sore throat, or otalgia. CARDIOVASCULAR: Denies chest pain, palpitations, or edema. RESPIRATORY: Denies cough or dyspnea. GASTROINTESTINAL: Denies abdominal pain, nausea, vomiting, or diarrhea. GENITOURINARY: Denies dysuria or hematuria. SKIN: Denies rash or itching. MUSCULOSKELETAL: Denies back pain, joint pain, or myalgia. NEUROLOGIC: Denies headache, numbness, or weakness. PSYCHIATRIC: Denies anxiety or depression. [facility] Past Medical History Medical History (Updated 05/06/21 @ 00:30 by Angel Ramirez MD) Bipolar disorder Chronic back pain Chronic obstructive pulmonary disease Depression with anxiety Diabetic neuropathy Diabetic peripheral neuropathy Essential hypertension Fibromyalgia Fracture Right ankle with chronic deformity. Gastroesophageal reflux disease History of blood transfusion Hyperlipidemia Insulin dependent diabetes mellitus Hemoglobin A1c was 13.1% on 02/14/2020. Irritable bowel syndrome Obstructive sleep apnea Osteoarthritis Pneumonia Post-menopausal Tobacco dependence Tubal Urinary tract infection Surgical History Surgical History History of breast biopsy left breast History of cardiac catheterization History of cholecystectomy History of dilatation and curettage History of hysterectomy History of tubal ligation History of umbilical hernia repair Status post ORIF of fracture of ankle Right ankle Family History Family History Father due to motor vehicle traffic accident Hypertension Bowel cancer Grandparent Diabetes mellitus Other Diabetes mellitus Mother due to motor vehicle traffic accident Other Family history of heart disease in male family member before age 55 Social History Social History Social History: The patient is and lives in [place] with her . She smoked 1.5 packs of cigarettes per day for many years, but for the last 6 months she has been smoking up to 3 packs of cigarettes per day due to stress. No excessive alcohol use. She denies illicit drug use. She designates her Will rushing
[2021-05-06 00:33] LABS: Glucose Point of Care > 500 mg/dl (65-105)
[2021-05-06] MEDS: SODIUM CHLORIDE 0.9% IV 1,000 ML 999 ML IV CONT ×2 (00:40)
[2021-05-06] MEDS: INSULIN HUMAN REGULAR (*BKC) 100 UNITS in SODIUM CHLORIDE 0.9% IV 99 ML 23.1 UNITS IV CONT (01:03)
--- NOTE | 2021-05-06 01:05 | PC.NURSE ---
verified insulin w/ CESILIA Quiroz
--- NOTE | 2021-05-06 03:09 | PC.NURSE ---
assumed care of pt at this time. report from Kaylynn LOMAS
[2021-05-06 03:16] LABS: Glucose Point of Care 364 mg/dl (65-105)
--- NOTE | 2021-05-06 03:21 | PM.IMHP ---
H&P: HPI History of Present Illness Date/Time: 05/06/21 03:21 Chief Complaint: NAUSEA AND VOMITING Narrative: THIS IS A 56-YEAR-OLD FEMALE WITH PAST MEDICAL HISTORY SIGNIFICANT FOR INSULIN DEPENDENT DIABETES MELLITUS, PERIPHERAL DIABETIC NEUROPATHY, HYPERTENSION, DYSLIPIDEMIA. PATIENT PRESENTED TO THE EMERGENCY ROOM STATING THAT SHE WAS NOT FEELING WELL FOR THE LAST 2 WEEKS OR SO TODAY SHE FINALLY DECIDED TO COME TO THE HOSPITAL DUE TO INTRACTABLE NAUSEA VOMITING ABDOMINAL PAIN AND DIARRHEA. UPON PRESENTATION TO THE EMERGENCY ROOM PATIENT WAS FOUND TO HAVE A BLOOD GLUCOSE UPWARD 1200 A SODIUM OF 109 A POTASSIUM OF 6.1 ALK-PHOS IN THE 200. PATIENT DENIES ANY FEVERS RIGORS OR CHILLS, SHE HAS A RIGHT LOWER EXTREMITY NONHEALING WOUND WHICH HE HAS BEEN TAKING CARE OF. SHE ALSO STATES THAT SHE HAS NOT BEEN ABLE TO EAT. PATIENT HAS BEEN STARTED ON INSULIN DRIP SEPSIS WORKUP IS IN PROGRESS. Review of Systems Review of Systems: NAUSEA VOMITING ABDOMINAL PAIN AND DIARRHEA Constitutional: Constitutional: Denies chills, Reports fatigue, Denies fever(s), Reports lethargy and Reports weakness Eyes: Eyes: Denies change in vision ENT: Denies dysphagia, Denies nasal congestion, Denies nasal discharge, Denies nasal obstruction and Denies odynophagia Cardiovascular: Cardiovascular: Denies chest pain, Denies irregular heart rhythm, Denies leg edema, Denies lightheadedness, Denies radiating jaw, neck or arm pain, Denies palpitations, Denies dyspnea, Denies dyspnea on exertion and Denies orthopnea Respiratory: Respiratory: Denies cough Gastrointestinal: Gastrointestinal: Reports abdominal pain, Reports diarrhea, Reports nausea and Reports vomiting Genitourinary: Genitourinary: Reports no additional female genitourinary complaints Musculoskeletal: Comments: RIGHT LOWER EXTREMITY SWELLING Integumentary/Breasts: Skin/Breast: Reports skin ulcer (RIGHT LOWER EXTREMITY) Neurologic: Denies focal weakness and Reports paresthesias Psychiatric: Psychiatric: Reports no additional psychiatric complaints Endocrine: Endocrine: Reports polydipsia and Reports polyuria Hematologic/Lymphatic: Hematologic/Lymphatic: Reports no additional hematologic/lymphatic complaints Allergic/Immunologic: Allergic/Immunologic: Reports no additional allergic/immunologic complaints [facility] Past Medical History Medical History (Updated 05/06/21 @ 02:00 by Angel Ramirez MD) Bipolar disorder Chronic back pain Chronic obstructive pulmonary disease Depression with anxiety Diabetic neuropathy Diabetic peripheral neuropathy Essential hypertension Fibromyalgia Fracture Right ankle with chronic deformity. Gastroesophageal reflux disease History of blood transfusion Hyperlipidemia Insulin dependent diabetes mellitus Hemoglobin A1c was 13.1% on 02/14/2020. Irritable bowel syndrome Obstructive sleep apnea Osteoarthritis Pneumonia Post-menopausal Tobacco dependence Tubal Urinary tract infection Surgical History Surgical History History of breast biopsy left breast History of cardiac catheterization History of cholecystectomy History of dilatation and curettage History of hysterectomy History of tubal ligation History of umbilical hernia repair Status post ORIF of fracture of ankle Right ankle Family History Family History Father due to motor vehicle traffic accident Hypertension Bowel cancer Grandparent Diabetes mellitus Other Diabetes mellitus Mother due to motor vehicle traffic accident Other Family history of heart disease in male family member before age 55 Social History Social History Social History: The patient is and lives in [place] with her . She smoked 1.5 packs of cigarettes per day for many years, but for the last 6 months she has been smoking u
[2021-05-06 04:55] LABS: Glucose Point of Care 357 mg/dl (65-105)
[2021-05-06] MEDS: SODIUM CHLORIDE 0.9% IV 1,000 ML 150 ML IV CONT (05:13)
[2021-05-06 06:03] LABS: Glucose Point of Care 213 mg/dl (65-105)
[2021-05-06] MEDS: KCL 20 MEQ/D5/0.45% SOD CHL 1,000 ML 150 ML IV CONT (06:58)
[2021-05-06] MEDS: INSULIN HUMAN REGULAR (*BKC) 100 UNITS in SODIUM CHLORIDE 0.9% IV 99 ML IV CONT (07:00)
[2021-05-06 08:05] LABS: Glucose Point of Care 170 mg/dl (65-105)
[2021-05-06 08:05] LABS: Basophils Absolute Auto 0.1 K/mm3 (0.0-0.1); Basophils Percent Auto 0.4 % (0.2-1.2); Eosinophils Absolute Auto 0.3 K/mm3 (0-0.3); Eosinophils Percent Auto 1.7 % (0-4.4); Glucose Point of Care 192 mg/dl (65-105); Hematocrit 40.7 % (37.0-47.0); Hemoglobin 14.2 g/dL (12.0-15.0); Immature Granulocyte Absolute 0.06 K/mm3 (0.00-0.031); Immature Granulocyte Percent A 0.4 % (0-0.5); Lymphocytes Absolute Auto 5.87 K/mm3 (0.9-3.2); Lymphocytes Percent Auto 36.3 % (18.3-44.2); Mean Corpuscular HGB Conc 34.9 g/dl (32-36); Mean Corpuscular Volume 85.9 fl (80-100); Mean Platelet Volume 11.4 fl (7.4-10.4); Monocytes Percent Auto 6.1 % (2.6-8.5); Neutrophils Absolute Auto 8.9 K/mm3 (1.3-6.7); Neutrophils Percent Auto 55.1 % (45.5-73.1); Platelet Count Result 268 k/mm3 (150-375); Red Blood Count 4.74 M/mm3 (4.2-5.4); Red Cell Distribution Width 13.2 % (11.5-14.5); White Blood Count 16.2 K/mm3 (4.5-10.0)
[2021-05-06 08:18] LABS: Anion Gap 9 mmol/L (8-16); Blood Urea Nitrogen 16 mg/dL (7-17); Calcium 9.4 mg/dL (8.4-10.2); Carbon Dioxide 23 mmol/L (22-30); Chloride 94 mmol/L (98-107); Estimated CRCL calculation 131 ml/min; Estimated Glomerular Filt Rate > 60; Glucose 185 mg/dL (65-110); Potassium 4.1 mmol/L (3.4-5.0); Sodium 126 mmol/L (137-145)
[2021-05-06 09:01] LABS: Glucose Point of Care 259 mg/dl (65-105)
[2021-05-06] MEDS: INSULIN GLARGINE (*BKC) 100 UNITS/ML 55 UNITS SUB-Q (09:23)
[2021-05-06 10:14] LABS: Glucose Point of Care 236 mg/dl (65-105)
[2021-05-06 11:47] LABS: Glucose Point of Care 337 mg/dl (65-105)
[2021-05-06] MEDS: INSULIN ASPART (*BKC) 100 UNITS/ML SUB-Q ×2 (12:31→17:05)
[2021-05-06] MEDS: INSULIN ASPART (*BKC) 100 UNITS/ML 10 UNITS SUB-Q ×2 (12:32→17:04)
--- NOTE | 2021-05-06 12:54 | WPDCNINT ---
Assessment and Plan Assessment and plan (1) Hyperosmolar hyperglycemic state (HHS): Code(s): E11.00 - Type 2 diabetes mellitus with hyperosmolarity without nonketotic hyperglycemic-hyperosmolar coma (NKHHC); E11.65 - Type 2 diabetes mellitus with hyperglycemia Status: Acute Assessment and Plan: Patient presented with nausea, vomiting, abdominal pain for 3 days prior to admission, was found to be in hyperosmolar hyperglycemic state with a blood sugars of > 1200. -patient received adequate IV fluids Fluids, started on insulin infusion -this morning patient is blood sugars have been stable, anion gap is normal, metabolic acidosis has resolved -will transition patient to long-acting insulin Lantus and sliding scale insulin Accu-Cheks - (2) Noncompliance with medication regimen: Code(s): Z91.14 - Patient's other noncompliance with medication regimen Status: Acute Assessment and Plan: Patient states she has not been taking insulin, has been noncompliant -discussed with her the importance of taking insulin regularly (3) Hyponatremia: Code(s): E87.1 - Hypo-osmolality and hyponatremia Status: Acute Assessment and Plan: Patient had sodium levels of 109 likely related to pseudohyponatremia secondary to significant hyperglycemia. -once her blood sugars trended down, sodium levels have improved since -will continue to monitor (4) Pneumonia: Qualifiers: Laterality: bilateral Lung location: unspecified part of lung Pneumonia type: due to unspecified organism Qualified Code(s): J18.9 - Pneumonia, unspecified organism Code(s): J18.9 - Pneumonia, unspecified organism Status: Acute Assessment and Plan: Patient presented with elevated WBC count, chest x-ray -showed mild infiltrate or atelectasis in the lower lung zones -patient was started on ceftriaxone and azithromycin -I do not feel this is pneumonia -await count could be related to infected lower extremity wounds (5) Diabetes mellitus with hyperglycemia: Qualifiers: Diabetes mellitus type: type 2 Diabetes mellitus intermodal dispatcher insulin use: with intermodal dispatcher use Qualified Code(s): E11.65 - Type 2 diabetes mellitus with hyperglycemia; Z79.4 - halfway (current) use of insulin Code(s): E11.65 - Type 2 diabetes mellitus with hyperglycemia Status: Acute Assessment and Plan: Hemoglobin A1c was 13.3 on 03/05/2021 -continue Lantus and sliding scale insulin with Accu-Cheks (6) Nausea and vomiting: Code(s): R11.2 - Nausea with vomiting, unspecified Status: Acute Assessment and Plan: Resolved (7) Fibromyalgia: Code(s): M79.7 - Fibromyalgia Status: Chronic Assessment and Plan: Continue Cymbalta (8) Tobacco dependence: Code(s): F17.200 - Nicotine dependence, unspecified, uncomplicated Status: Chronic Assessment and Plan: Counseled patient on cessation of smoking, she is not willing to quit at this time -I did encourage her discussed the negative effects of smoking. Additional Plan Discussed with patient updated with her condition and plan of care. I also encouraged cessation of smoking Code status: Full code Critical care time spent: 40 minutes This dictation may have been done utilizing a voice recognition system. Attempts have been made to correct errors. However, there may be uncorrected grammatical, spelling, and recognition errors present. Due to a high probability of clinically significant, life threatening deterioration, the patient required my highest level of preparedness to intervene emergently and I personally spent this critical care time directly and personally managing the patient. This critical care time included obtaining a history; examining the patient; pulse oximetry; ordering and review of studies; arranging urgent treatment with development of a management plan; evaluation of patient's response to treatment;
[2021-05-06 13:19] LABS: Anion Gap 7 mmol/L (8-16); Blood Urea Nitrogen 14 mg/dL (7-17); Calcium 8.8 mg/dL (8.4-10.2); Carbon Dioxide 20 mmol/L (22-30); Chloride 99 mmol/L (98-107); Estimated CRCL calculation 131 ml/min; Estimated Glomerular Filt Rate > 60; Glucose 380 mg/dL (65-110); Sodium 126 mmol/L (137-145)
--- NOTE | 2021-05-06 16:17 | PC.NURSE ---
PATIENT TRANSFERRED TO ROOM 328. REPORT GIVEN TO CESILIA NDIAYE. ALL QUESTIONS ANSWERED.
--- NOTE | 2021-05-06 16:41 | PM.IMPN ---
Progress Note: A&P Assessment and Plan (1) Hyperosmolar hyperglycemic state (HHS): Code(s): E11.00 - Type 2 diabetes mellitus with hyperosmolarity without nonketotic hyperglycemic-hyperosmolar coma (NKHHC); E11.65 - Type 2 diabetes mellitus with hyperglycemia Status: Acute Assessment and Plan: -etiology of hyperglycemia is not taking insulin, may also be from infection however it appears to be primarily from not taking her insulin -Elevated blood sugar greater than 1200, improved with IV fluids and IV insulin -no anion gap, this was HHS, now resolved -hemoglobin A1c on 03/05/2021 was 13.3 -transition to basal bolus insulin. Will be on Lantus 55 units, a.c. NovoLog 10 units. High-dose sliding scale insulin -hypoglycemia protocol, Accu-Cheks a.c. HS -continue Januvia (2) Cellulitis of right lower extremity: Code(s): L03.115 - Cellulitis of right lower limb Status: Acute Assessment and Plan: -Patient has infection of right lower extremity with diabetes blood sugar uncontrolled we will continue with IV antibiotics at this time. -leukocytosis likely secondary to severe dehydration with HHS however with right foot wound and hyperglycemia we should make sure infection is under control -starting Zosyn for diabetic wound, will transition to p.o. ABx on discharge (3) Nausea and vomiting: Qualifiers: Vomiting type: unspecified Vomiting Intractability: non-intractable Qualified Code(s): R11.2 - Nausea with vomiting, unspecified Code(s): R11.2 - Nausea with vomiting, unspecified Status: Acute Assessment and Plan: -Resolved with resolution of HHS, patient tolerating p.o. intake -Zofran p.r.n. for nausea (4) Noncompliance with medication regimen: Code(s): Z91.14 - Patient's other noncompliance with medication regimen Status: Acute Assessment and Plan: See above (5) Pneumonia: Qualifiers: Laterality: bilateral Lung location: unspecified part of lung Pneumonia type: due to unspecified organism Qualified Code(s): J18.9 - Pneumonia, unspecified organism Code(s): J18.9 - Pneumonia, unspecified organism Status: Acute Assessment and Plan: Concern for pneumonia on admission however no respiratory symptoms and no sputum production. Stopping Zithromax in and Rocephin Additional Plan # other chronic conditions -can continue home psychiatric medications rexulti, bupropion, trazodone, amitriptyline, Cymbalta -hyperlipidemia: Lipitor -continue home gabapentin for diabetic neuropathy Diet: Diabetic DVT prophylaxis: Lovenox Code status: Full code Disposition: Continue monitoring in medical floor no telemetry, home in 1-2 days Time Spent With Patient Time with patient: 25 - 35 minutes Subjective Date/time seen: 05/06/21 16:41 Patient examined. She had not been taking her insulin at home as she is supposed to because she thought she did needed it. Of note she has a right lower extremity diabetic wound which is poorly healing. She was admitted ICU for HHS with blood sugar greater than 1200. She was treated with multiple L of IV fluid, IV insulin gtt and has been weaned off the drip this morning. She never had an anion gap and she feels better, less nauseous. She denies fever, chills, nausea, vomiting, diarrhea, chest pain. Her symptoms appear to be improving with the glycemic control. Patient will be transition to sliding scale insulin as well as basal bolus insulin. There is question if she had pneumonia however lungs are clear and there was no other signs of pneumonia no cough or respiratory symptoms. We will be changing antibiotics from Rocephin azithromycin to Zosyn for the diabetic wound. She is clinically stable for downgrade to medical floor without telemetry. Review of Systems Review of Systems: All systems reviewed & are unremarkable except as noted in HPI and below Exam Narrative: - GENERAL: Pleasant woman in no acute di
[2021-05-06] MEDS: ATORVASTATIN 40 MG TABLET 80 MG PO (17:04)
[2021-05-06 17:10] LABS: Anion Gap 7 mmol/L (8-16); Blood Urea Nitrogen 13 mg/dL (7-17); Calcium 8.6 mg/dL (8.4-10.2); Carbon Dioxide 24 mmol/L (22-30); Chloride 94 mmol/L (98-107); Estimated CRCL calculation 111 ml/min; Estimated Glomerular Filt Rate > 60; Glucose 257 mg/dL (65-110); Potassium 4.3 mmol/L (3.4-5.0); Sodium 125 mmol/L (137-145)
[2021-05-06 17:22] LABS: Glucose Point of Care 275 mg/dl (65-105)
[2021-05-06 17:38] LABS: SARS-CoV-2 RNA PCR Negative
[2021-05-06 20:58] LABS: Anion Gap 9 mmol/L (8-16); Blood Urea Nitrogen 12 mg/dL (7-17); Calcium 9.2 mg/dL (8.4-10.2); Carbon Dioxide 25 mmol/L (22-30); Chloride 94 mmol/L (98-107); Estimated CRCL calculation 111 ml/min; Estimated Glomerular Filt Rate > 60; Glucose 198 mg/dL (65-110); Potassium 4.1 mmol/L (3.4-5.0); Sodium 128 mmol/L (137-145)
[2021-05-06] MEDS: AMITRIPTYLINE HCL 25 MG TABLET 50 MG PO (21:10)
[2021-05-06] MEDS: MICONAZOLE NITRATE 2% CREAM 30 GM TUBE 1 APPLIC TOPICAL (21:11)
[2021-05-06] MEDS: SILVERGEL (ELTA) 45 ML 1 APPLIC TOPICAL (21:11)
[2021-05-06 21:44] LABS: Glucose Point of Care 203 mg/dl (65-105)
[2021-05-07 01:02] LABS: Anion Gap 6 mmol/L (8-16); Blood Urea Nitrogen 11 mg/dL (7-17); Calcium 9.3 mg/dL (8.4-10.2); Carbon Dioxide 24 mmol/L (22-30); Chloride 99 mmol/L (98-107); Estimated CRCL calculation 131 ml/min; Estimated Glomerular Filt Rate > 60; Glucose 233 mg/dL (65-110); Sodium 129 mmol/L (137-145)
[2021-05-07] MEDS: traZODone HCL 50 MG TABLET 150 MG PO (01:13)
[2021-05-07 06:00] VITALS: BP 104/87; PULSE 91; RESP 20; TEMP 36.9; O2SAT 95
[2021-05-07 06:36] LABS: Hematocrit 36.9 % (37.0-47.0); Hemoglobin 12.8 g/dL (12.0-15.0); Mean Corpuscular HGB Conc 34.7 g/dl (32-36); Mean Corpuscular Hemoglobin 29.9 pg (26-34); Mean Corpuscular Volume 86.2 fl (80-100); Mean Platelet Volume 11.6 fl (7.4-10.4); Platelet Count Result 247 k/mm3 (150-375); Red Blood Count 4.28 M/mm3 (4.2-5.4); Red Cell Distribution Width 13.6 % (11.5-14.5); White Blood Count 12.9 K/mm3 (4.5-10.0)
[2021-05-07 07:02] LABS: Glucose Point of Care 259 mg/dl (65-105)
[2021-05-07 07:16] LABS: Anion Gap 6 mmol/L (8-16); Blood Urea Nitrogen 9 mg/dL (7-17); Calcium 9.1 mg/dL (8.4-10.2); Carbon Dioxide 25 mmol/L (22-30); Chloride 98 mmol/L (98-107); Estimated CRCL calculation 111 ml/min; Estimated Glomerular Filt Rate > 60; Glucose 272 mg/dL (65-110); Magnesium 1.7 mg/dL (1.6-2.3); Potassium 4.2 mmol/L (3.4-5.0); Sodium 129 mmol/L (137-145)
[2021-05-07] MEDS: INSULIN ASPART (*BKC) 100 UNITS/ML SUB-Q ×2 (08:29→13:18)
[2021-05-07] MEDS: INSULIN ASPART (*BKC) 100 UNITS/ML 10 UNITS SUB-Q ×3 (08:30→18:16)
[2021-05-07] MEDS: buPROPion HCL XL (24 HR) 150 MG TABCR 300 MG PO (08:38)
[2021-05-07] MEDS: ENOXAPARIN 40 MG/0.4 ML SYRINGE SUB-Q (08:38)
[2021-05-07] MEDS: SILVERGEL (ELTA) 45 ML 1 APPLIC TOPICAL (08:38)
[2021-05-07] MEDS: MICONAZOLE NITRATE 2% CREAM 30 GM TUBE 1 APPLIC TOPICAL (08:38)
[2021-05-07] MEDS: GABAPENTIN 300 MG CAPSULE 600 MG PO (08:38)
[2021-05-07] MEDS: DULoxetine HCL 60 MG CAPSULE.DR PO (08:39)
[2021-05-07 08:48] LABS: Glucose Point of Care 337 mg/dl (65-105)
[2021-05-07] MEDS: INSULIN GLARGINE (*BKC) 100 UNITS/ML 55 UNITS SUB-Q (09:07)
[2021-05-07 12:11] VITALS: O2SAT 95
[2021-05-07 12:30] VITALS: BMI 30.7
[2021-05-07 13:13] LABS: Glucose Point of Care 253 mg/dl (65-105)
--- NOTE | 2021-05-07 17:19 | PM.DS ---
DS: Admitting Diagnosis Admitting Diagnosis Hyperglycemia Community-acquired pneumonia DS: Discharge Diagnosis Discharge Diagnosis (1) Cellulitis of right lower extremity: Code(s): L03.115 - Cellulitis of right lower limb Status: Acute (2) Hyperosmolar hyperglycemic state (HHS): Code(s): E11.00 - Type 2 diabetes mellitus with hyperosmolarity without nonketotic hyperglycemic-hyperosmolar coma (NKHHC); E11.65 - Type 2 diabetes mellitus with hyperglycemia Status: Acute (3) Pneumonia: Qualifiers: Laterality: bilateral Lung location: unspecified part of lung Pneumonia type: due to unspecified organism Qualified Code(s): J18.9 - Pneumonia, unspecified organism Code(s): J18.9 - Pneumonia, unspecified organism Status: Acute (4) Noncompliance with medication regimen: Code(s): Z91.14 - Patient's other noncompliance with medication regimen Status: Acute (5) Hyponatremia: Code(s): E87.1 - Hypo-osmolality and hyponatremia Status: Acute (6) Leukocytosis: Qualifiers: Leukocytosis type: unspecified Qualified Code(s): D72.829 - Elevated white blood cell count, unspecified Code(s): D72.829 - Elevated white blood cell count, unspecified Status: Acute (7) Acute dehydration: Code(s): E86.0 - Dehydration Status: Acute (8) Diabetes mellitus with hyperglycemia: Qualifiers: Diabetes mellitus type: type 2 Diabetes mellitus long-term insulin use: with long-term use Qualified Code(s): E11.65 - Type 2 diabetes mellitus with hyperglycemia; Z79.4 - prison (current) use of insulin Code(s): E11.65 - Type 2 diabetes mellitus with hyperglycemia Status: Acute (9) Bipolar disorder: Qualifiers: Active/Remission status: remission status unspecified Qualified Code(s): F31.9 - Bipolar disorder, unspecified Code(s): F31.9 - Bipolar disorder, unspecified Status: Acute DS: Summary Hospital Course Reason for hospitalization: Hyperglycemia Community-acquired pneumonia Hospital Course: 56 year female with past medical history significant for type 2 diabetes, peripheral neuropathy, hypertension, hyperlipidemia and bipolar disorder presented with complaints of weakness for the past 2 weeks and was noted to have severely elevated blood sugar 2-1200 multiple other electrolyte abnormalities. She was managed for HHS and community-acquired pneumonia with chest x-ray concerning for an infiltrate. She was also noted to have leukocytosis which was attributed to community-acquired pneumonia in addition to right lower extremity ulcer causing cellulitis. She was also worked up for sepsis and blood cultures have thus far been negative. She has not spiked a temp. She continued to improve and now is being discharged on oral antibiotics. At the time of admission her hemoglobin A1c was not ordered. This will be undertaken as outpatient by her primary physician she is now being discharged with home regimen of insulin. Time Spent with Patient Time attestation: Total time spent providing and/or coordinating discharge services: Greater than 35 minute Time spent: Greater than 30 minutes Exam Const: General: cooperative HENMT: Head: normal to inspection Eyes: General: appearance normal, both eyes and all related structures Neck: Neck: normal visual inspection Chest: Chest palpation & inspection: normal inspection of the chest Resp: Effort & Inspection: normal respiratory effort Auscultation: clear to auscultation bilaterally Cardio: Jugular venous distension: no JVD Palpation: normal PMI Rate: regular rate Rhythm: regular rhythm Heart sounds: S1 normal heart sound present and S2 normal heart sound present GI: Inspection: normal to inspection GI Palp: Yes Soft to palpation Auscultation: normal bowel sounds : General: Yes bimanual renal exam normal bilaterally Back/Spine/Pelvis: Back: no CVA tendern
[2021-05-07] MEDS: ATORVASTATIN 40 MG TABLET 80 MG PO (18:19)
[2021-05-07 20:08] LABS: Glucose Point of Care 174 mg/dl (65-105)
== END 2021-05-07 20:10 | disposition home or self-care (01) | DRG 637 ==
LOC: ANHED 05-06 00:30 → ANH3MEDSUR 05-07 08:03 → ANHICU 05-09 12:52
PROVIDERS: General Practice; Internal Medicine; Student in an Organized Health Care Education/Training Program; Admitting Provider Internal Medicine; Emergency Provider Emergency Medicine; PCP Family Medicine; Visit Provider Internal Medicine
DX: E11.00 Type 2 diabetes mellitus with hyperosmolarity without nonketotic hyperglycemic-hyperosmolar coma (NKHHC) (principal); J18.9 Pneumonia, unspecified organism; L03.115 Cellulitis of right lower limb; E87.1 Hypo-osmolality and hyponatremia; J44.0 Chronic obstructive pulmonary disease with (acute) lower respiratory infection; Z20.822 Contact with and (suspected) exposure to COVID-19; E11.65 Type 2 diabetes mellitus with hyperglycemia; E11.42 Type 2 diabetes mellitus with diabetic polyneuropathy; E11.621 Type 2 diabetes mellitus with foot ulcer; L97.509 Non-pressure chronic ulcer of other part of unspecified foot with unspecified severity; F31.9 Bipolar disorder, unspecified; M79.7 Fibromyalgia; K21.9 Gastro-esophageal reflux disease without esophagitis; F41.8 Other specified anxiety disorders; K58.9 Irritable bowel syndrome, unspecified; E78.5 Hyperlipidemia, unspecified; M19.90 Unspecified osteoarthritis, unspecified site; G47.33 Obstructive sleep apnea (adult) (pediatric); F17.210 Nicotine dependence, cigarettes, uncomplicated; Z91.14 Patient's other noncompliance with medication regimen; Z90.49 Acquired absence of other specified parts of digestive tract; Z90.710 Acquired absence of both cervix and uterus
CPT/HCPCS: 36415; 36600; 71045; 80048; 80053; 81001; 81025; 82010; 82375; 82805; 82948; 83050; 83690; 83735; 84100; 85025; 85027; 87040; 96374; 99285; A9270; C9803; J0456; J0696; J1650; J1815; J2543; J3480; J7030; U0003; U0005

== ENCOUNTER 2021-06-16 15:03 | Inpatient (IN) | payer OTHER, SELFPAY ==
[2021-06-16] VITALS (10 sets, daily range): BP systolic 119–145; BP diastolic 65–86; PULSE 88–101; RESP 16–27; TEMP 36.4–36.9; O2SAT 89–98
--- NOTE | ~2021-06-16 | XR_ITS ---
EXAMINATION: XR chest 1V portable EXAM DATE: 06/17/2021 12:30 INDICATION: Dyspnea. TECHNIQUE: Portable AP frontal chest x-ray was obtained. Comparison is made to prior examination from 06/16/2021. FINDINGS: Patchy bibasilar multifocal airspace disease most likely pneumonia and atelectasis. Cardiac silhouette is stable in size compared to prior exam. There is no pneumothorax suspected. Possible sm all pleural effusions. There are no osseous abnormalities identified. IMPRESSION: Multifocal bibasilar airspace disease unchanged. Reviewed, dictated and finalized at location B.
--- NOTE | ~2021-06-16 | CT_ITS ---
EXAMINATION: CTA chest PE protocol EXAM DATE: 06/18/2021 15:16 INDICATION: Elevated D Dimer . Abnormal chest x-ray, multifocal airspace disease. TECHNIQUE: Spiral CTA of the chest (pulmonary arteries) was performed with 100 cc Omnipaque 350 intr avenous contrast injection. Images were acquired during the pulmonary arterial phase. Coronal maxi mum intensity projection 3D-reconstructions were created by the technologist on dedicated workstation . Axial, coronal and sagittal reformatted images were reviewed. The dose-length product (DLP) for t his examination was 424.87 mGy-cm. The exposure was tailored according to patient size (auto mA exp osure control), and iterative reconstruction (ASIR) was used as additional dose reduction technique. Comparison is made to prior examination from 09/12/2020. FINDINGS: Pulmonary arteries are well opacified and without intraluminal filling defects. No thora cic aortic dissection. Dense multisegmental right lower lobe airspace disease and multifocal subsegm ental left lower lobe airspace disease, appearance consistent with pneumonia. Follow-up imaging is in dicated to exclude any underlying cancer. There is right hilar lymphadenopathy. There are no pleural or pericardial effusions. Tracheobronchial tree is patent. There is no pneumothorax. Mild card iomegaly. There is moderate coronary arterial calcification, arterial sclerosis. There are cholecyst ectomy clips. There is mild to moderate thoracic spondylosis without osteoblastic or osteolytic les ions identified. IMPRESSION: 1. Multisegmental right lower lobe, multifocal subsegmental left lower lobe pneumonia. 2. Right hilar lymphadenopathy. 3. Cardiomegaly. Dilated pulmonary arteries. 4. Follow-up imaging to exclude any underlying cancer. Reviewed, dictated and finalized at location B. IMPRESSION: 1. Multisegmental right lower lobe, multifocal subsegmental left lower lobe pn eumonia. 2. Right hilar lymphadenopathy. 3. Cardiomegaly. Dilated pulmonary arteries. 4. Follow-up imaging to exclude any underlying cancer.
--- NOTE | ~2021-06-16 | XR_ITS ---
CORRECTED REPORT Changed to XR chest 1V portable. 06/16/2021 [facility] [place]AMINATION: XR chest 1V portable EXAM DATE: 06/16/2021 15:49 INDICATION: dyspnea, cough, shortness of breath, COPD. TECHNIQUE: Portable AP frontal chest x-ray was obtained. Comparison is made to prior examination from 05/06/2021. FINDINGS: Development of moderate amount of bibasilar ill-defined acute airspace disease. Could be pneumonia and/or edema. Cardiomediastinal silhouette is normal. There is no pneumothorax suspected. There are no osseous abnormalities identified. IMPRESSION: Development of moderate bibasilar pneumonia and/or edema. Reviewed, dictated and finalized at location B. MTDD
--- NOTE | 2021-06-16 15:22 | ECG_ITS ---
Measurements Intervals Stout Rate: 99 P: 7 HI: 193 QRS: 8 QRSD: 87 T: 50 QT: 336 QTc: 433 Interpretive Statements SINUS RHYTHM BORDERLINE R WAVE PROGRESSION, ANTERIOR LEADS BASELINE WANDER- AVR, AVL, AVF, V1, V3 BORDERLINE ECG Electronically Signed On 06-16-2021 15:34:11 CDT by Jun Navarro D.O.
[2021-06-16 16:09] LABS: Basophils Absolute Auto 0.1 K/mm3 (0.0-0.1); Basophils Percent Auto 0.4 % (0.2-1.2); Eosinophils Absolute Auto 0.1 K/mm3 (0-0.3); Eosinophils Percent Auto 0.4 % (0-4.4); Hematocrit 40.9 % (37.0-47.0); Hemoglobin 14.4 g/dL (12.0-15.0); Immature Granulocyte Absolute 0.11 K/mm3 (0.00-0.031); Immature Granulocyte Percent A 0.6 % (0-0.5); Lymphocytes Absolute Auto 2.07 K/mm3 (0.9-3.2); Lymphocytes Percent Auto 11.3 % (18.3-44.2); Mean Corpuscular HGB Conc 35.2 g/dl (32-36); Mean Corpuscular Hemoglobin 31.2 pg (26-34); Mean Corpuscular Volume 88.7 fl (80-100); Mean Platelet Volume 12.1 fl (7.4-10.4); Monocytes Absolute Auto 0.8 K/mm3 (0.1-0.6); Monocytes Percent Auto 4.6 % (2.6-8.5); Neutrophils Absolute Auto 15.1 K/mm3 (1.3-6.7); Neutrophils Percent Auto 82.7 % (45.5-73.1); Platelet Count Result 282 k/mm3 (150-375); Red Blood Count 4.61 M/mm3 (4.2-5.4); Red Cell Distribution Width 13.9 % (11.5-14.5); White Blood Count 18.3 K/mm3 (4.5-10.0)
--- NOTE | 2021-06-16 16:22 | ED.GENADULT ---
HPI - General Adult General Chief complaint: Shortness of Breath/Dyspnea Stated complaint: Sent by PMD Time Seen by Provider: 06/16/21 16:12 History of Present Illness HPI narrative: Patient 56-year-old female presents the emergency department with chief complaint of cough and shortness of breath. Patient reports that for the last week or so she has been having a cough and is felt short of breath with exertion. Patient denies chest pain reports that she has not been vaccinated for COVID-19 reports she does have history of diabetes. Patient states that symptoms are worsened whenever she ambulates and improved with rest patient states he is concerned that she may have pneumonia incidentally the patient states for the last 4 weeks he has been having ulcerations on her right lower extremity. Related Data Home Medications Medication Instructions Recorded Confirmed Rexulti 4 mg PO DAILY 11/04/19 05/06/21 duloxetine [Cymbalta] 60 mg PO DAILY 11/04/19 05/06/21 trazodone 150 mg PO HS PRN 11/04/19 05/06/21 Humalog KwikPen Insulin See Rx Instructions .ROUTE .COMPLEX 02/14/20 05/06/21 Januvia 100 mg PO DAILY 02/14/20 05/06/21 atorvastatin 80 mg PO QPM 02/14/20 05/06/21 bupropion HCl 300 mg PO DAILY 02/14/20 05/06/21 ergocalciferol (vitamin D2) 50,000 unit PO WEEKLY 02/14/20 05/06/21 [Vitamin D2] gabapentin 600 mg PO DAILY 06/10/20 05/06/21 amitriptyline 50 mg PO HS 05/06/21 05/06/21 Allergies Allergy/AdvReac Type Severity Reaction Status Date / Time povidone-iodine Allergy Intermediate rash Verified 05/05/21 22:45 soap [From Betadine] Allergy Rash Verified 05/05/21 22:45 Review of Systems Review of Systems: A 10 system review of systems was completed on the patient and is negative except for what is stated in the HPI. Nursing and ancillary documentation was reviewed. [facility] Past Medical History Medical History (Updated 06/16/21 @ 16:24 by Patric Wu MD) Bipolar disorder Chronic back pain Chronic obstructive pulmonary disease Depression with anxiety Diabetic neuropathy Diabetic peripheral neuropathy Essential hypertension Fibromyalgia Fracture Right ankle with chronic deformity. Gastroesophageal reflux disease History of blood transfusion Hyperlipidemia Insulin dependent diabetes mellitus Hemoglobin A1c was 13.1% on 02/14/2020. Irritable bowel syndrome Obstructive sleep apnea Osteoarthritis Pneumonia Post-menopausal Tobacco dependence Tubal Urinary tract infection Surgical History Surgical History History of breast biopsy left breast History of cardiac catheterization History of cholecystectomy History of dilatation and curettage History of hysterectomy History of tubal ligation History of umbilical hernia repair Status post ORIF of fracture of ankle Right ankle Family History Family History Father due to motor vehicle traffic accident Hypertension Bowel cancer Grandparent Diabetes mellitus Other Diabetes mellitus Mother due to motor vehicle traffic accident Other Family history of heart disease in male family member before age 55 Social History Social History Social History: The patient is and lives in [place] with her . She smoked 1.5 packs of cigarettes per day for many years, but for the last 6 months she has been smoking up to 3 packs of cigarettes per day due to stress. No excessive alcohol use. She denies illicit drug use. She designates her Will as her surrogate decision maker and she wishes to be a full code. 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 The patient is applying for disability. She is unable to work at this time. She cannot stand on her foot she has sev
[2021-06-16 16:28] LABS: Anion Gap 15 mmol/L (8-16); Blood Urea Nitrogen 16 mg/dL (7-17); Calcium 8.9 mg/dL (8.4-10.2); Carbon Dioxide 21 mmol/L (22-30); Chloride 82 mmol/L (98-107); Estimated Glomerular Filt Rate > 60; Potassium 4.2 mmol/L (3.4-5.0); Sodium 118 mmol/L (137-145)
--- NOTE | 2021-06-16 16:42 | PC.NURSE ---
Called lab to add on Trop I Baseline, BNP
[2021-06-16 16:44] LABS: Glucose 784 mg/dL (65-110)
--- NOTE | 2021-06-16 16:50 | PC.NURSE ---
Called lab and spoke to Dannielle to add on Beta Hydroxybut
[2021-06-16] MEDS: SODIUM CHLORIDE 0.9% IV 1,000 ML 999 ML IV CONT ×2 (16:53→18:07)
[2021-06-16 16:58] LABS: Lactic Acid Reflex 1.3 mmol/L (0.7-2.1)
[2021-06-16 17:06] LABS: NT Pro B Type Natriuretic Pept 146 pg/mL (5-100); Troponin I < 0.012 ng/mL (0.000-0.034)
[2021-06-16] MEDS: INSULIN HUMAN REGULAR (*BKC) 100 UNITS/ML 10 UNITS IV PUSH (17:24)
[2021-06-16 17:28] LABS: Beta-Hydroxybutyrate/Acetoacetate 2.09 mmol/L (0.02-0.27)
[2021-06-16 18:15] LABS: Glucose Point of Care 476 mg/dl (65-105)
--- NOTE | 2021-06-16 19:23 | PC.NURSE ---
Assumed care of pt at this time, pt is alert and VSS. Discussed POC. Pt 92% on room air and increased WOB noted, placed on 2 L NC O2 for comfort and O2 sat 96% at this time.
[2021-06-16 19:26] LABS: Alanine Aminotransferase 16 U/L (4-35); Albumin Level 3.7 g/dL (3.5-5.1); Alkaline Phosphatase 215 U/L (38-126); Anion Gap 11 mmol/L (8-16); Aspartate Amino Transferase 18 U/L (14-36); Bilirubin,Total 0.6 mg/dL (0.2-1.3); Blood Urea Nitrogen 13 mg/dL (7-17); Calcium 8.2 mg/dL (8.4-10.2); Carbon Dioxide 24 mmol/L (22-30); Chloride 91 mmol/L (98-107); Estimated Glomerular Filt Rate > 60; Glucose 485 mg/dL (65-110); Lactate Dehydrogenase 335 U/L (313-618); Magnesium 2.2 mg/dL (1.6-2.3); Potassium 3.7 mmol/L (3.4-5.0); Sodium 126 mmol/L (137-145)
[2021-06-16 20:07] LABS: Glucose Point of Care 451 mg/dl (65-105)
[2021-06-16 20:58] LABS: Procalcitonin 0.2 ng/mL
--- NOTE | 2021-06-16 21:13 | PC.NURSE ---
Report called to Maritza RN at this time, per Maritza - room is not cleaned, she will call them again and let the ED know when room is ready. Charge notified of delay.
--- NOTE | 2021-06-16 22:57 | ADMGEN ---
This patient, Jeanette Peres, was admitted to [facility] Surg Room 300-01 at 2145. Patient/family oriented to hospital policies and general routines including ID bracelet, bed and alarms, visiting hours, pain management, procedures, bathroom and other care routines, personal items, smoking policy, room service/diet, and visiting hours. Information on how to activate the Rapid Response Team has been discussed. Patient/Family are encouraged to report perceived risks to care and to ask questions if they do not understand what they are told or what they should do.
[2021-06-17] VITALS (8 sets, daily range): BP systolic 117–142; BP diastolic 59–79; PULSE 87–99; RESP 18; TEMP 36.6–37.2; O2SAT 90–96; BMI 29.4
[2021-06-17] MEDS: SODIUM CHLORIDE 0.9% IV 1,000 ML 125 ML IV CONT (03:58)
--- NOTE | 2021-06-17 04:12 | PM.IMHP ---
H&P: HPI History of Present Illness Date/Time: 06/17/21 04:12 Chief Complaint: SHORTNESS OF BREATH Narrative: THIS IS A 56-YEAR-OLD FEMALE WITH PAST MEDICAL HISTORY SIGNIFICANT FOR TYPE 2 DIABETES MELLITUS INSULIN DEPENDENT, POORLY CONTROLLED , TOBACCO DEPENDENCE PATIENT SMOKES 1 PACK OF CIGARETTES DAILY, HYPERTENSION, KNOWN HEALING RIGHT LOWER EXTREMITY 1ST TOE ULCER, PERIPHERAL NEUROPATHY. PATIENT PRESENTED TO THE EMERGENCY ROOM DUE TO THE WORSENING OF SHORTNESS OF BREATH, COUGH, FEVERS, CHILLS. SHE GETS VERY SHORT OF BREATH WITH ACTIVITY. PRELIMINARY WORKUP WAS SIGNIFICANT FOR CHEST X-RAY WITH DIFFUSE INFILTRATES. PATIENT HAS BEEN SWABBED FOR COVID-19 AND HAS BEEN ADMITTED FOR FURTHER MANAGEMENT AND TREATMENT. Review of Systems Review of Systems: FEVERS CHILLS COUGH SHORTNESS OF BREATH DISC DECREASED STAMINA RIGHT TOE ULCER Constitutional: Constitutional: Reports chills, Reports fatigue, Reports fever(s), Reports lethargy, Reports malaise and Reports weakness Eyes: Eyes: Reports no additional eye complaints and Denies change in vision ENT: Denies dysphagia, Denies nasal congestion, Denies nasal discharge, Denies nasal obstruction and Denies odynophagia Cardiovascular: Cardiovascular: Denies chest pain, Denies chest pain at rest, Denies irregular heart rhythm, Denies claudication, Reports leg ulcers, Denies radiating jaw, neck or arm pain, Denies palpitations, Denies dyspnea, Denies dyspnea on exertion and Denies orthopnea Respiratory: Respiratory: Reports cough and Reports dyspnea Gastrointestinal: Gastrointestinal: Denies abdominal pain, Denies dyspepsia, Denies diarrhea, Denies nausea and Denies vomiting Genitourinary: Genitourinary: Reports no additional female genitourinary complaints Musculoskeletal: Musculoskeletal: Reports myalgias Integumentary/Breasts: Skin/Breast: Reports skin ulcer (RIGHT TOE RIGHT LOWER EXTREMITY ) Neurologic: Denies focal weakness and Denies Sensory deficit (Neuro) Psychiatric: Psychiatric: Reports no additional psychiatric complaints Endocrine: Comments: UNCONTROLLED SUGARS Hematologic/Lymphatic: Hematologic/Lymphatic: Reports no additional hematologic/lymphatic complaints Allergic/Immunologic: Allergic/Immunologic: Reports no additional allergic/immunologic complaints [facility] Past Medical History Medical History (Updated 06/16/21 @ 16:24 by Patric Wu MD) Bipolar disorder Chronic back pain Chronic obstructive pulmonary disease Depression with anxiety Diabetic neuropathy Diabetic peripheral neuropathy Essential hypertension Fibromyalgia Fracture Right ankle with chronic deformity. Gastroesophageal reflux disease History of blood transfusion Hyperlipidemia Insulin dependent diabetes mellitus Hemoglobin A1c was 13.1% on 02/14/2020. Irritable bowel syndrome Obstructive sleep apnea Osteoarthritis Pneumonia Post-menopausal Tobacco dependence Tubal Urinary tract infection Surgical History Surgical History History of breast biopsy left breast History of cardiac catheterization History of cholecystectomy History of dilatation and curettage History of hysterectomy History of tubal ligation History of umbilical hernia repair Status post ORIF of fracture of ankle Right ankle Family History Family History Father due to motor vehicle traffic accident Hypertension Bowel cancer Grandparent Diabetes mellitus Other Diabetes mellitus Mother due to motor vehicle traffic accident Other Family history of heart disease in male family member before age 55 Social History Social History Social History: The patient is and lives in [place] with her . She smoked 1.5 packs of cigarettes per day for many years, but for the last 6 months she has
[2021-06-17 04:39] LABS: Glucose Point of Care 394 mg/dl (65-105)
[2021-06-17] MEDS: INSULIN ASPART (*BKC) 100 UNITS/ML SUB-Q ×4 (04:49→16:56)
[2021-06-17] MEDS: ALBUTEROL SULFATE (*SP) AEROSOL 1 PUFF 2 PUFF INHALATION ×3 (07:55→19:35)
[2021-06-17 08:11] LABS: Glucose Point of Care 360 mg/dl (65-105)
[2021-06-17 08:38] LABS: Basophils Absolute Auto 0.1 K/mm3 (0.0-0.1); Basophils Percent Auto 0.5 % (0.2-1.2); Eosinophils Absolute Auto 0.1 K/mm3 (0-0.3); Eosinophils Percent Auto 0.9 % (0-4.4); Hematocrit 37.7 % (37.0-47.0); Hemoglobin 12.9 g/dL (12.0-15.0); Immature Granulocyte Absolute 0.14 K/mm3 (0.00-0.031); Immature Granulocyte Percent A 0.9 % (0-0.5); Lymphocytes Absolute Auto 2.82 K/mm3 (0.9-3.2); Lymphocytes Percent Auto 17.1 % (18.3-44.2); Mean Corpuscular HGB Conc 34.2 g/dl (32-36); Mean Corpuscular Hemoglobin 30.7 pg (26-34); Mean Corpuscular Volume 89.8 fl (80-100); Mean Platelet Volume 11.6 fl (7.4-10.4); Monocytes Absolute Auto 0.9 K/mm3 (0.1-0.6); Monocytes Percent Auto 5.5 % (2.6-8.5); Neutrophils Absolute Auto 12.4 K/mm3 (1.3-6.7); Neutrophils Percent Auto 75.1 % (45.5-73.1); Platelet Count Result 256 k/mm3 (150-375); Red Cell Distribution Width 13.8 % (11.5-14.5); White Blood Count 16.5 K/mm3 (4.5-10.0)
[2021-06-17] MEDS: buPROPion HCL XL (24 HR) 150 MG TABCR 300 MG PO (08:53)
[2021-06-17] MEDS: ENOXAPARIN 40 MG/0.4 ML SYRINGE SUB-Q ×2 (08:54→20:55)
[2021-06-17] MEDS: GABAPENTIN 300 MG CAPSULE 600 MG PO (08:54)
[2021-06-17] MEDS: DULoxetine HCL 60 MG CAPSULE.DR PO (08:54)
[2021-06-17] MEDS: INSULIN GLARGINE (*BKC) 100 UNITS/ML 52 UNITS SUB-Q (08:58)
[2021-06-17 09:14] LABS: Alanine Aminotransferase 13 U/L (4-35); Albumin Level 3.5 g/dL (3.5-5.1); Alkaline Phosphatase 184 U/L (38-126); Anion Gap 11 mmol/L (8-16); Aspartate Amino Transferase 18 U/L (14-36); Bilirubin,Total 0.5 mg/dL (0.2-1.3); Blood Urea Nitrogen 12 mg/dL (7-17); Calcium 8.6 mg/dL (8.4-10.2); Carbon Dioxide 22 mmol/L (22-30); Chloride 93 mmol/L (98-107); Estimated CRCL calculation 124 ml/min; Estimated Glomerular Filt Rate > 60; Glucose 360 mg/dL (65-110); Potassium 3.5 mmol/L (3.4-5.0); Sodium 126 mmol/L (137-145)
[2021-06-17 11:49] LABS: Glucose Point of Care 390 mg/dl (65-105)
--- NOTE | 2021-06-17 12:03 | P.PNIM_ITS ---
Progress Note: A&P Assessment and Plan (1) Pneumonia: Qualifiers: Laterality: bilateral Lung location: unspecified part of lung Pneumonia type: due to unspecified organism Qualified Code(s): J18.9 - Pneumonia, unspecified organism Code(s): J18.9 - Pneumonia, unspecified organism Status: Acute Assessment and Plan: * Chest x-ray shows development of moderate bibasilar pneumonia and/or edema (06/16/21) * Patient requiring 5 L nasal cannula * Supplemental oxygen wean to maintain a saturation greater than 90% * COVID swab is pending * IV Rocephin and Zithromax * Cultures pending * Deescalate antibiotics with culture results * Remdesivir and Decadron started * Albuterol treatments (2) Person under investigation for COVID-19: Code(s): Z20.822 - Contact with and (suspected) exposure to COVID-19 Status: Acute Assessment and Plan: * Oxygen demand increased dramatically. * COVID swab pending * Inflammatory markers pending * See above (3) Cellulitis of right lower extremity: Code(s): L03.115 - Cellulitis of right lower limb Status: Acute Assessment and Plan: * IV antibiotics * Wound care consult thank you for recommendations * White blood cell count 16.5 * Trend labs * Trend symptoms (4) Insulin dependent diabetes mellitus: Status: Chronic Assessment and Plan: * Glucose 369 * Continue home Lantus 50 units daily * Insulin sliding scale * Hypoglycemic protocol * Carb consistent diet * Trend glucose * Labs in the a.m. * Consider adding pre meal insulin (5) Diabetic foot ulcer: Qualifiers: Diabetes mellitus type: type 2 Diabetic foot ulcer location: heel Laterality: right Non-pressure ulcer stage: with fat layer exposed Qualified Code(s): E11.621 - Type 2 diabetes mellitus with foot ulcer; L97.412 - Non- pressure chronic ulcer of right heel and midfoot with fat layer exposed Code(s): E11.621 - Type 2 diabetes mellitus with foot ulcer; L97.509 - Non-pressure chronic ulcer of other part of unspecified foot with unspecified severity Status: Acute Assessment and Plan: * Wound care consult * Follow recommendations by wound care * Follow-up outpatient after discharge (6) Diabetic neuropathy: Code(s): E11.40 - Type 2 diabetes mellitus with diabetic neuropathy, unspecified Status: Chronic Assessment and Plan: * Reports no feeling up to the knees * Continue gabapentin 600 mg daily (7) Chronic obstructive pulmonary disease: Code(s): J44.9 - Chronic obstructive pulmonary disease, unspecified Status: Chronic Assessment and Plan: * Could be acute exacerbation if covid is negative, with increase of oxygen demand * Albuterol 2 puffs q.6 * IV antibiotics * Steroids * Incentive spirometer * Pep therapy (8) Tobacco dependence: Code(s): F17.200 - Nicotine dependence, unspecified, uncomplicated Status: Chronic Assessment and Plan: * Nicotine patch * Nicotine gum * Smoking cessation education provided for 12 minutes (9) Essential hypertension: Code(s): I10 - Essential (primary) hypertension Status: Chronic Assessment and Plan: * Current blood pressure 135/73 * Trend blood pressure * Add medication (10) Hyponatremia:
--- NOTE | 2021-06-17 12:03 | PM.IMPN ---
Progress Note: A&P Assessment and Plan (1) Pneumonia: Qualifiers: Laterality: bilateral Lung location: unspecified part of lung Pneumonia type: due to unspecified organism Qualified Code(s): J18.9 - Pneumonia, unspecified organism Code(s): J18.9 - Pneumonia, unspecified organism Status: Acute Assessment and Plan: Chest x-ray shows development of moderate bibasilar pneumonia and/or edema (06/16/21) Patient requiring 5 L nasal cannula Supplemental oxygen wean to maintain a saturation greater than 90% COVID swab is pending IV Rocephin and Zithromax Cultures pending Deescalate antibiotics with culture results Remdesivir and Decadron started Albuterol treatments (2) Person under investigation for COVID-19: Code(s): Z20.822 - Contact with and (suspected) exposure to COVID-19 Status: Acute Assessment and Plan: Oxygen demand increased dramatically. COVID swab pending Inflammatory markers pending See above (3) Cellulitis of right lower extremity: Code(s): L03.115 - Cellulitis of right lower limb Status: Acute Assessment and Plan: IV antibiotics Wound care consult thank you for recommendations White blood cell count 16.5 Trend labs Trend symptoms (4) Insulin dependent diabetes mellitus: Status: Chronic Assessment and Plan: Glucose 369 Continue home Lantus 50 units daily Insulin sliding scale Hypoglycemic protocol Carb consistent diet Trend glucose Labs in the a.m. Consider adding pre meal insulin (5) Diabetic foot ulcer: Qualifiers: Diabetes mellitus type: type 2 Diabetic foot ulcer location: heel Laterality: right Non-pressure ulcer stage: with fat layer exposed Qualified Code(s): E11.621 - Type 2 diabetes mellitus with foot ulcer; L97.412 - Non-pressure chronic ulcer of right heel and midfoot with fat layer exposed Code(s): E11.621 - Type 2 diabetes mellitus with foot ulcer; L97.509 - Non-pressure chronic ulcer of other part of unspecified foot with unspecified severity Status: Acute Assessment and Plan: Wound care consult Follow recommendations by wound care Follow-up outpatient after discharge (6) Diabetic neuropathy: Code(s): E11.40 - Type 2 diabetes mellitus with diabetic neuropathy, unspecified Status: Chronic Assessment and Plan: Reports no feeling up to the knees Continue gabapentin 600 mg daily (7) Chronic obstructive pulmonary disease: Code(s): J44.9 - Chronic obstructive pulmonary disease, unspecified Status: Chronic Assessment and Plan: Could be acute exacerbation if covid is negative, with increase of oxygen demand Albuterol 2 puffs q.6 IV antibiotics Steroids Incentive spirometer Pep therapy (8) Tobacco dependence: Code(s): F17.200 - Nicotine dependence, unspecified, uncomplicated Status: Chronic Assessment and Plan: Nicotine patch Nicotine gum Smoking cessation education provided for 12 minutes (9) Essential hypertension: Code(s): I10 - Essential (primary) hypertension Status: Chronic Assessment and Plan: Current blood pressure 135/73 Trend blood pressure Add medication (10) Hyponatremia: Code(s): E87.1 - Hypo-osmolality and hyponatremia Status: Acute Assessment and Plan: Sodium this morning was 126 Patient received 4 L normal saline in the ED Consider continuous IV fluids at 80 an hour Trend labs (11) Bipolar disorder: Qualifiers: Active/Remission status: remission status unspecified Qualified Code(s): F31.9 - Bipolar disorder, unspecified Code(s): F31.9 - Bipolar disorder, unspecified Status: Acute Assessment and Plan: continue home meds Amitriptyline 50 mg p.o. at night, trazodone 150 mg p.o. at night
[2021-06-17 12:55] LABS: INR 1.1; Prothrombin Time 13.8 Seconds (11.1-14.7)
[2021-06-17] MEDS: SILVERGEL (ELTA) 45 ML 1 APPLIC TOPICAL (12:56)
[2021-06-17 12:58] LABS: D Dimer 0.71 ug/mL (<0.48)
[2021-06-17 13:05] LABS: Alanine Aminotransferase 13 U/L (4-35); Estimated CRCL calculation 124 ml/min; Estimated Glomerular Filt Rate > 60
[2021-06-17 13:27] LABS: Alveolar/Arterial O2 Gradient 181.3 mmHg; Base Excess ABG 1.1 mEq/l (+/-2.0); Fractional Inspired Oxygen 40 %; HCO3 ABG 24.4 mEq/l (22.0-26.0); Oxygen Content ABG 17.4 %vol (16.0-22.0); Oxygen Saturation ABG 93.7 % (95.0-100.0); Oxyhemoglobin 91.8 % THb (90.0-100.0); PCO2 ABG 34.9 mmHg (35.0-45.0); PO2 ABG 63.8 mmHg (80.0-100.0); Total Hemoglobin 13.5 g/dL (12.0-18.0); pH ABG 7.463 (7.350-7.450)
[2021-06-17 13:28] LABS: Device NASAL CANNULA; Modified Allen's Test Pass; Site Drawn LEFT RADIAL
[2021-06-17 13:32] LABS: CRP 18.5 mg/dL (<1.0); Lactate Dehydrogenase 314 U/L (313-618)
[2021-06-17] MEDS: BUMETANIDE INJ 1 MG/4 ML VIAL IV PUSH (16:44)
[2021-06-17] MEDS: REMDESIVIR 200 MG/NS 250 ML 200 MG/250 ML BAG 250 MG IVPB (16:44)
[2021-06-17] MEDS: NICOTINE (*PBKC) 21 MG PATCH 1 PATCH TRANSDERM (16:56)
[2021-06-17 17:06] LABS: Glucose Point of Care 307 mg/dl (65-105)
[2021-06-17 18:19] LABS: SARS-CoV-2 RNA PCR Negative
[2021-06-17] MEDS: AMITRIPTYLINE HCL 25 MG TABLET 50 MG PO (20:55)
[2021-06-17] MEDS: ACETAMINOPHEN 325 MG TABLET 650 MG PO (23:08)
[2021-06-17] MEDS: traZODone HCL 50 MG TABLET 150 MG PO (23:14)
[2021-06-17 23:20] LABS: Glucose Point of Care 409 mg/dl (65-105)
[2021-06-18] VITALS (14 sets, daily range): BP systolic 112–119; BP diastolic 68–71; PULSE 74–84; RESP 16–20; TEMP 36.1–36.6; O2SAT 92–97
[2021-06-18] MEDS: ALBUTEROL SULFATE (*SP) AEROSOL 1 PUFF 2 PUFF INHALATION (01:07)
[2021-06-18 07:06] LABS: Basophils Percent Auto 0.2 % (0.2-1.2); Hematocrit 37.5 % (37.0-47.0); Hemoglobin 12.8 g/dL (12.0-15.0); Immature Granulocyte Absolute 0.11 K/mm3 (0.00-0.031); Immature Granulocyte Percent A 0.9 % (0-0.5); Lymphocytes Absolute Auto 2.17 K/mm3 (0.9-3.2); Lymphocytes Percent Auto 17.2 % (18.3-44.2); Mean Corpuscular HGB Conc 34.1 g/dl (32-36); Mean Corpuscular Volume 87.8 fl (80-100); Mean Platelet Volume 11.6 fl (7.4-10.4); Monocytes Absolute Auto 0.5 K/mm3 (0.1-0.6); Monocytes Percent Auto 3.9 % (2.6-8.5); Neutrophils Absolute Auto 9.8 K/mm3 (1.3-6.7); Neutrophils Percent Auto 77.8 % (45.5-73.1); Platelet Count Result 281 k/mm3 (150-375); Red Blood Count 4.27 M/mm3 (4.2-5.4); Red Cell Distribution Width 13.4 % (11.5-14.5); White Blood Count 12.6 K/mm3 (4.5-10.0)
[2021-06-18 07:15] LABS: INR 1.1; Prothrombin Time 14.4 Seconds (11.1-14.7)
[2021-06-18 07:19] LABS: Alanine Aminotransferase 14 U/L (4-35); Albumin Level 3.7 g/dL (3.5-5.1); Alkaline Phosphatase 189 U/L (38-126); Anion Gap 11 mmol/L (8-16); Aspartate Amino Transferase 20 U/L (14-36); Bilirubin,Total 0.2 mg/dL (0.2-1.3); Blood Urea Nitrogen 13 mg/dL (7-17); Carbon Dioxide 25 mmol/L (22-30); Chloride 93 mmol/L (98-107); Estimated CRCL calculation 124 ml/min; Estimated Glomerular Filt Rate > 60; Glucose 372 mg/dL (65-110); Potassium 3.6 mmol/L (3.4-5.0); Sodium 129 mmol/L (137-145)
--- NOTE | 2021-06-18 07:20 | P.PNIM_ITS ---
Progress Note: A&P Assessment and Plan (1) Pneumonia: Qualifiers: Laterality: bilateral Lung location: unspecified part of lung Pneumonia type: due to unspecified organism Qualified Code(s): J18.9 - Pneumonia, unspecified organism Code(s): J18.9 - Pneumonia, unspecified organism Status: Acute Assessment and Plan: * Chest x-ray shows development of moderate bibasilar pneumonia and/or edema (06/16/21) * Repeat chest xray 06/17/21 no changes * Patient requiring 5 L nasal cannula * Supplemental oxygen wean to maintain a saturation greater than 90% * D.Dimer elevated 0.71 * CTA ordered and pending to rule out PE * ABG respiratory alkalosis * COVID swab is negative * IV Rocephin and Zithromax * Cultures NGTD * Deescalate antibiotics with culture results * Remdesivir and Decadron stopped at this time * Started solumedrol 40mg Q8hr * Atrovent and albuterol nebs added (2) Chronic obstructive pulmonary disease: Code(s): J44.9 - Chronic obstructive pulmonary disease, unspecified Status: Chronic Assessment and Plan: * Could be acute exacerbation if covid is negative, with increase of oxygen demand * Albuterol and atrovent nebs Q6hr km * IV antibiotics * Steroids changed to solumedrol 40mg IV Q5hr * Supplemental oxygen, maintain saturation >90% * Incentive spirometer * Pep therapy * Consider pulmonary consult * Smoking cessation education (3) Hyperglycemia, unspecified: Code(s): R73.9 - Hyperglycemia, unspecified Status: Acute Assessment and Plan: * Glucose runs 300-400 * Beta hydroxybutyrate 2.09 * UA shows 3+ glucose, no ketones * indicates HHS * Elevated WBC, trending down * Lantus 52units, aspart 9 units with meals, sliding scale * A1c from 03/05/21 13.3 * Repeat A1c in the am * Trend labs (4) Cellulitis of right lower extremity: Code(s): L03.115 - Cellulitis of right lower limb Status: Acute Assessment and Plan: * IV antibiotics * Wound care consult thank you for recommendations * White blood cell count 12.6 today * Trend labs * Trend symptoms (5) Insulin dependent diabetes mellitus: Status: Chronic Assessment and Plan: * Glucose 372 * Continue home Lantus 50 units daily * Insulin sliding scale * add 9 units aspart before meals * Hypoglycemic protocol * Carb consistent diet * Trend glucose * Labs in the a.m. (6) Diabetic foot ulcer: Qualifiers: Diabetes mellitus type: type 2 Diabetic foot ulcer location: heel Laterality: right Non-pressure ulcer stage: with fat layer exposed Qualified Code(s): E11.621 - Type 2 diabetes mellitus with foot ulcer; L97.412 - Non- pressure chronic ulcer of right heel and midfoot with fat layer exposed Code(s): E11.621 - Type 2 diabetes mellitus with foot ulcer; L97.509 - Non-pressure ch ronic ulcer of other part of unspecified foot with unspecified severity Status: Acute Assessment and Plan: * Wound care consult * Follow recommendations by wound care * Follow-up outpatient after discharge (7) Diabetic neuropathy: Code(s): E11.40 - Type 2 diabetes mellitus with diabetic neuropathy, unspecified Status: Chronic Assessment and Plan: * Reports no feeling up to the knees * Continue gabapentin 600 mg daily (8) Tobacco dependence: Code(s): F17.200 - [place]
--- NOTE | 2021-06-18 07:20 | PM.IMPN ---
Progress Note: A&P Assessment and Plan (1) Pneumonia: Qualifiers: Laterality: bilateral Lung location: unspecified part of lung Pneumonia type: due to unspecified organism Qualified Code(s): J18.9 - Pneumonia, unspecified organism Code(s): J18.9 - Pneumonia, unspecified organism Status: Acute Assessment and Plan: Chest x-ray shows development of moderate bibasilar pneumonia and/or edema (06/16/21) Repeat chest xray 06/17/21 no changes Patient requiring 5 L nasal cannula Supplemental oxygen wean to maintain a saturation greater than 90% D.Dimer elevated 0.71 CTA ordered and pending to rule out PE ABG respiratory alkalosis COVID swab is negative IV Rocephin and Zithromax Cultures NGTD Deescalate antibiotics with culture results Remdesivir and Decadron stopped at this time Started solumedrol 40mg Q8hr Atrovent and albuterol nebs added (2) Chronic obstructive pulmonary disease: Code(s): J44.9 - Chronic obstructive pulmonary disease, unspecified Status: Chronic Assessment and Plan: Could be acute exacerbation if covid is negative, with increase of oxygen demand Albuterol and atrovent nebs Q6hr km IV antibiotics Steroids changed to solumedrol 40mg IV Q5hr Supplemental oxygen, maintain saturation >90% Incentive spirometer Pep therapy Consider pulmonary consult Smoking cessation education (3) Hyperglycemia, unspecified: Code(s): R73.9 - Hyperglycemia, unspecified Status: Acute Assessment and Plan: Glucose runs 300-400 Beta hydroxybutyrate 2.09 UA shows 3+ glucose, no ketones indicates HHS Elevated WBC, trending down Lantus 52units, aspart 9 units with meals, sliding scale A1c from 03/05/21 13.3 Repeat A1c in the am Trend labs (4) Cellulitis of right lower extremity: Code(s): L03.115 - Cellulitis of right lower limb Status: Acute Assessment and Plan: IV antibiotics Wound care consult thank you for recommendations White blood cell count 12.6 today Trend labs Trend symptoms (5) Insulin dependent diabetes mellitus: Status: Chronic Assessment and Plan: Glucose 372 Continue home Lantus 50 units daily Insulin sliding scale add 9 units aspart before meals Hypoglycemic protocol Carb consistent diet Trend glucose Labs in the a.m. (6) Diabetic foot ulcer: Qualifiers: Diabetes mellitus type: type 2 Diabetic foot ulcer location: heel Laterality: right Non-pressure ulcer stage: with fat layer exposed Qualified Code(s): E11.621 - Type 2 diabetes mellitus with foot ulcer; L97.412 - Non-pressure chronic ulcer of right heel and midfoot with fat layer exposed Code(s): E11.621 - Type 2 diabetes mellitus with foot ulcer; L97.509 - Non-pressure chronic ulcer of other part of unspecified foot with unspecified severity Status: Acute Assessment and Plan: Wound care consult Follow recommendations by wound care Follow-up outpatient after discharge (7) Diabetic neuropathy: Code(s): E11.40 - Type 2 diabetes mellitus with diabetic neuropathy, unspecified Status: Chronic Assessment and Plan: Reports no feeling up to the knees Continue gabapentin 600 mg daily (8) Tobacco dependence: Code(s): F17.200 - Nicotine dependence, unspecified, uncomplicated Status: Chronic Assessment and Plan: Reports smoking 1 ppd, reports 3 ppd Nicotine patch Nicotine gum Smoking cessation education provided for 12 minutes (9) Essential hypertension: Code(s): I10 - Essential (primary) hypertension Status: Chronic Assessment and Plan: Current blood pressure 119/68 Trend blood pressure Add medication if indicated (10) Hyponatremia: Code(s): E87.1 - Hypo-osmolality and hyponatremia Status: Acute Assessment and
[2021-06-18] MEDS: IPRATROPIUM BR 0.02% INH SOLN 0.5 MG/2.5 ML VIAL INHALATION ×3 (08:02→19:36)
[2021-06-18 08:25] LABS: Glucose Point of Care 338 mg/dl (65-105)
[2021-06-18] MEDS: methylPREDNISolone SOD SUCC 40 MG VIAL IV PUSH ×3 (08:45→21:17)
[2021-06-18] MEDS: INSULIN ASPART (*BKC) 100 UNITS/ML 9 UNITS SUB-Q ×3 (09:19→17:58)
[2021-06-18] MEDS: ENOXAPARIN 40 MG/0.4 ML SYRINGE SUB-Q ×2 (09:19→21:18)
[2021-06-18] MEDS: INSULIN ASPART (*BKC) 100 UNITS/ML SUB-Q ×3 (09:19→17:58)
[2021-06-18] MEDS: buPROPion HCL XL (24 HR) 150 MG TABCR 300 MG PO (09:20)
[2021-06-18] MEDS: INSULIN GLARGINE (*BKC) 100 UNITS/ML 52 UNITS SUB-Q (09:20)
[2021-06-18] MEDS: GABAPENTIN 300 MG CAPSULE 600 MG PO (09:20)
[2021-06-18] MEDS: DULoxetine HCL 60 MG CAPSULE.DR PO (09:20)
[2021-06-18] MEDS: NICOTINE (*PBKC) 21 MG PATCH 1 PATCH TRANSDERM (09:21)
[2021-06-18 11:57] LABS: Glucose Point of Care 329 mg/dl (65-105)
[2021-06-18] MEDS: SILVERGEL (ELTA) 45 ML 1 APPLIC TOPICAL (13:58)
[2021-06-18] MEDS: diphenhydrAMINE HCl INJ 50 MG/ML VIAL IV PUSH (13:58)
[2021-06-18] MEDS: ATORVASTATIN 40 MG TABLET 80 MG PO (17:01)
[2021-06-18 17:08] LABS: Glucose Point of Care 311 mg/dl (65-105)
[2021-06-18] MEDS: traZODone HCL 50 MG TABLET 150 MG PO (21:17)
[2021-06-18] MEDS: AMITRIPTYLINE HCL 25 MG TABLET 50 MG PO (21:18)
[2021-06-18] MEDS: ACETAMINOPHEN 325 MG TABLET 650 MG PO (21:23)
[2021-06-19 01:14] LABS: Glucose Point of Care 371 mg/dl (65-105)
[2021-06-19] MEDS: IPRATROPIUM BR 0.02% INH SOLN 0.5 MG/2.5 ML VIAL INHALATION ×2 (01:25→08:51)
[2021-06-19 01:27] VITALS: PULSE 71; RESP 16
--- NOTE | 2021-06-19 04:31 | PHAR ---
Brexpiprazole [Rexulti] 4 mg Tablet TAKE 1 TABLET BY MOUTH AT BEDTIME verified unopened bottle and sent back to [address] [place] [address] for use
[2021-06-19] MEDS: methylPREDNISolone SOD SUCC 40 MG VIAL IV PUSH ×2 (05:29→14:09)
[2021-06-19 06:00] VITALS: BP 119/68; PULSE 73; RESP 18; TEMP 36.2; O2SAT 96
[2021-06-19 07:02] LABS: Basophils Percent Auto 0.2 % (0.2-1.2); Hematocrit 37.8 % (37.0-47.0); Hemoglobin 12.7 g/dL (12.0-15.0); Immature Granulocyte Absolute 0.11 K/mm3 (0.00-0.031); Immature Granulocyte Percent A 1.1 % (0-0.5); Lymphocytes Absolute Auto 1.56 K/mm3 (0.9-3.2); Lymphocytes Percent Auto 15.7 % (18.3-44.2); Mean Corpuscular HGB Conc 33.6 g/dl (32-36); Mean Corpuscular Hemoglobin 30.4 pg (26-34); Mean Corpuscular Volume 90.4 fl (80-100); Mean Platelet Volume 11.4 fl (7.4-10.4); Monocytes Absolute Auto 0.3 K/mm3 (0.1-0.6); Monocytes Percent Auto 2.8 % (2.6-8.5); Neutrophils Percent Auto 80.2 % (45.5-73.1); Platelet Count Result 261 k/mm3 (150-375); Red Blood Count 4.18 M/mm3 (4.2-5.4); Red Cell Distribution Width 13.7 % (11.5-14.5); White Blood Count 9.9 K/mm3 (4.5-10.0)
[2021-06-19 07:15] LABS: Alanine Aminotransferase 14 U/L (4-35); Albumin Level 3.6 g/dL (3.5-5.1); Alkaline Phosphatase 158 U/L (38-126); Anion Gap 11 mmol/L (8-16); Aspartate Amino Transferase 18 U/L (14-36); Bilirubin,Total 0.2 mg/dL (0.2-1.3); Blood Urea Nitrogen 14 mg/dL (7-17); Carbon Dioxide 25 mmol/L (22-30); Chloride 94 mmol/L (98-107); Estimated CRCL calculation 124 ml/min; Estimated Glomerular Filt Rate > 60; Glucose 331 mg/dL (65-110); Potassium 3.7 mmol/L (3.4-5.0); Sodium 130 mmol/L (137-145)
--- NOTE | 2021-06-19 07:53 | P.PNIM_ITS ---
Progress Note: A&P Assessment and Plan (1) Pneumonia: Qualifiers: Laterality: bilateral Lung location: unspecified part of lung Pneumonia type: due to unspecified organism Qualified Code(s): J18.9 - Pneumonia, unspecified organism Code(s): J18.9 - Pneumonia, unspecified organism Status: Acute Assessment and Plan: * Chest x-ray shows development of moderate bibasilar pneumonia and/or edema (06/16/21) * Repeat chest xray 06/17/21 no changes * Patient requiring 5 L nasal cannula * Supplemental oxygen wean to maintain a saturation greater than 90% * D.Dimer elevated 0.71 * CTA: No PE, right lower lobe and subsegmental left lower lobe PNA * ABG respiratory alkalosis * COVID swab is negative * IV Rocephin and Zithromax * Cultures NGTD * Deescalate antibiotics with culture results * Remdesivir and Decadron stopped at this time * Started solumedrol 40mg Q8hr, consider deescalate and convert to PO * Atrovent and albuterol nebs added (2) Chronic obstructive pulmonary disease: Code(s): J44.9 - Chronic obstructive pulmonary disease, unspecified Status: Chronic Assessment and Plan: * Consider a mix of COPD exacerbation with PNA, increased oxygen demand * Albuterol and atrovent nebs Q6hr km * IV antibiotics * Steroids changed to solumedrol 40mg IV Q8hr, Consider changing to PO Prednisone * Supplemental oxygen, maintain saturation >90% * Incentive spirometer * Pep therapy * Pulmonary consult thank you for recommendations * Smoking cessation education (3) Hyperglycemia, unspecified: Code(s): R73.9 - Hyperglycemia, unspecified Status: Acute Assessment and Plan: * Glucose runs 300-400 * Glucose on labs 331 * Beta hydroxybutyrate 2.09 (06/16/21) * UA shows 3+ glucose, no ketones * indicates HHS * Elevated WBC, trending down * Lantus 52units, aspart 9 units with meals, sliding scale * A1c from 03/05/21 13.3 * Repeat A1c in the am * Trend labs (4) Cellulitis of right lower extremity: Code(s): L03.115 - Cellulitis of right lower limb Status: Acute Assessment and Plan: * IV antibiotics * Wound care consult thank you for recommendations * White blood cell count 9.9 today * Trend labs * Trend symptoms (5) Insulin dependent diabetes mellitus: Status: Chronic Assessment and Plan: * Glucose 331 * Continue home Lantus 50 units daily * Insulin sliding scale * 9 units aspart before meals, increase to 12 units * Hypoglycemic protocol * Carb consistent diet * Trend glucose * Labs in the a.m. (6) Diabetic foot ulcer: Qualifiers: Diabetes mellitus type: type 2 Diabetic foot ulcer location: heel Laterality: right Non-pressure ulcer stage: with fat layer exposed Qualified Code(s): E11.621 - Type 2 diabetes mellitus with foot ulcer; L97.412 - Non- pressure chronic ulcer of right heel and midfoot with fat layer exposed Code(s): E11.621 - Type 2 diabetes mellitus with foot ulcer; L97.509 - Non-pressure chronic ulcer of other part of unspecified foot with unspecified severity Status: Acute Assessment and Plan: * Wound care consult * Follow recommendations by wound care * Follow-up outpatient after discharge (7) Diarrhea: Code(s): R19.7 - Diarrhea, unspecified Status: Acute Assessment and Plan: * 5-6 episodes of diarrhea per day * Add banatrol
--- NOTE | 2021-06-19 07:53 | PM.IMPN ---
Progress Note: A&P Assessment and Plan (1) Pneumonia: Qualifiers: Laterality: bilateral Lung location: unspecified part of lung Pneumonia type: due to unspecified organism Qualified Code(s): J18.9 - Pneumonia, unspecified organism Code(s): J18.9 - Pneumonia, unspecified organism Status: Acute Assessment and Plan: Chest x-ray shows development of moderate bibasilar pneumonia and/or edema (06/16/21) Repeat chest xray 06/17/21 no changes Patient requiring 5 L nasal cannula Supplemental oxygen wean to maintain a saturation greater than 90% D.Dimer elevated 0.71 CTA: No PE, right lower lobe and subsegmental left lower lobe PNA ABG respiratory alkalosis COVID swab is negative IV Rocephin and Zithromax Cultures NGTD Deescalate antibiotics with culture results Remdesivir and Decadron stopped at this time Started solumedrol 40mg Q8hr, consider deescalate and convert to PO Atrovent and albuterol nebs added (2) Chronic obstructive pulmonary disease: Code(s): J44.9 - Chronic obstructive pulmonary disease, unspecified Status: Chronic Assessment and Plan: Consider a mix of COPD exacerbation with PNA, increased oxygen demand Albuterol and atrovent nebs Q6hr km IV antibiotics Steroids changed to solumedrol 40mg IV Q8hr, Consider changing to PO Prednisone Supplemental oxygen, maintain saturation >90% Incentive spirometer Pep therapy Pulmonary consult thank you for recommendations Smoking cessation education (3) Hyperglycemia, unspecified: Code(s): R73.9 - Hyperglycemia, unspecified Status: Acute Assessment and Plan: Glucose runs 300-400 Glucose on labs 331 Beta hydroxybutyrate 2.09 (06/16/21) UA shows 3+ glucose, no ketones indicates HHS Elevated WBC, trending down Lantus 52units, aspart 9 units with meals, sliding scale A1c from 03/05/21 13.3 Repeat A1c in the am Trend labs (4) Cellulitis of right lower extremity: Code(s): L03.115 - Cellulitis of right lower limb Status: Acute Assessment and Plan: IV antibiotics Wound care consult thank you for recommendations White blood cell count 9.9 today Trend labs Trend symptoms (5) Insulin dependent diabetes mellitus: Status: Chronic Assessment and Plan: Glucose 331 Continue home Lantus 50 units daily Insulin sliding scale 9 units aspart before meals, increase to 12 units Hypoglycemic protocol Carb consistent diet Trend glucose Labs in the a.m. (6) Diabetic foot ulcer: Qualifiers: Diabetes mellitus type: type 2 Diabetic foot ulcer location: heel Laterality: right Non-pressure ulcer stage: with fat layer exposed Qualified Code(s): E11.621 - Type 2 diabetes mellitus with foot ulcer; L97.412 - Non-pressure chronic ulcer of right heel and midfoot with fat layer exposed Code(s): E11.621 - Type 2 diabetes mellitus with foot ulcer; L97.509 - Non-pressure chronic ulcer of other part of unspecified foot with unspecified severity Status: Acute Assessment and Plan: Wound care consult Follow recommendations by wound care Follow-up outpatient after discharge (7) Diarrhea: Code(s): R19.7 - Diarrhea, unspecified Status: Acute Assessment and Plan: 5-6 episodes of diarrhea per day Add banatrol supplement Consider C.Diff if needed Encourage fluid intake (8) Diabetic neuropathy: Code(s): E11.40 - Type 2 diabetes mellitus with diabetic neuropathy, unspecified Status: Chronic Assessment and Plan: Reports no feeling up to the knees Continue gabapentin 600 mg daily (9) Tobacco dependence: Code(s): F17.200 - Nicotine dependence, unspecified, uncomplicated Status: Chronic Assessment and Plan: Reports smoking 1 ppd, reports 3 ppd Nicotine patch Nicotine gum Smoking c
[2021-06-19] MEDS: INSULIN ASPART (*BKC) 100 UNITS/ML SUB-Q ×2 (08:12→12:00)
[2021-06-19] MEDS: INSULIN GLARGINE (*BKC) 100 UNITS/ML 52 UNITS SUB-Q (08:14)
[2021-06-19] MEDS: ENOXAPARIN 40 MG/0.4 ML SYRINGE SUB-Q (08:16)
[2021-06-19] MEDS: GABAPENTIN 300 MG CAPSULE 600 MG PO (08:16)
[2021-06-19] MEDS: buPROPion HCL XL (24 HR) 150 MG TABCR 300 MG PO (08:17)
[2021-06-19] MEDS: NICOTINE (*PBKC) 21 MG PATCH 1 PATCH TRANSDERM (08:17)
[2021-06-19] MEDS: DULoxetine HCL 60 MG CAPSULE.DR PO (08:17)
[2021-06-19 08:18] LABS: Glucose Point of Care 367 mg/dl (65-105)
[2021-06-19] MEDS: SACCHAROMYCES BOULARDII 250 MG CAPSULE PO (08:18)
[2021-06-19] MEDS: SILVERGEL (ELTA) 45 ML 1 APPLIC TOPICAL (08:19)
[2021-06-19 08:53] VITALS: PULSE 82; RESP 16
[2021-06-19 08:59] VITALS: PULSE 88; RESP 16
--- NOTE | 2021-06-19 10:55 | P.DS_ITS ---
DS: Admitting Diagnosis Discharge Date Disease service 06/19/2021 at 7:53 a.m. Admitting Diagnosis Community-acquired pneumonia DS: Discharge Diagnosis Discharge Diagnosis (1) Pneumonia: Qualifiers: Laterality: bilateral Lung location: unspecified part of lung Pneumonia type: due to unspecified organism Qualified Code(s): J18.9 - Pneumonia, unspecified organism Code(s): J18.9 - Pneumonia, unspecified organism Status: Acute Assessment and Plan: * Chest x-ray shows development of moderate bibasilar pneumonia and/or edema (06/16/21) * Repeat chest xray 06/17/21 no changes * Patient requiring 5 L nasal cannula * Supplemental oxygen wean to maintain a saturation greater than 90% * D.Dimer elevated 0.71 * CTA: No PE, right lower lobe and subsegmental left lower lobe PNA * ABG respiratory alkalosis * COVID swab is negative * IV Rocephin and Zithromax * Cultures NGTD * Deescalate antibiotics with culture results * Remdesivir and Decadron stopped at this time * Started solumedrol 40mg Q8hr, consider deescalate and convert to PO * Atrovent and albuterol nebs added (2) Chronic obstructive pulmonary disease: Code(s): J44.9 - Chronic obstructive pulmonary disease, unspecified Status: Chronic Assessment and Plan: * Consider a mix of COPD exacerbation with PNA, increased oxygen demand * Albuterol and atrovent nebs Q6hr km * IV antibiotics * Steroids changed to solumedrol 40mg IV Q8hr, Consider changing to PO Prednisone * Supplemental oxygen, maintain saturation >90% * Incentive spirometer * Pep therapy * Pulmonary consult thank you for recommendations * Smoking cessation education (3) Hyperglycemia, unspecified: Code(s): R73.9 - Hyperglycemia, unspecified Status: Acute Assessment and Plan: * Glucose runs 300-400 * Glucose on labs 331 * Beta hydroxybutyrate 2.09 (06/16/21) * UA shows 3+ glucose, no ketones * indicates HHS * Elevated WBC, trending down * Lantus 52units, aspart 9 units with meals, sliding scale * A1c from 03/05/21 13.3 * Repeat A1c in the am * Trend labs (4) Cellulitis of right lower extremity: Code(s): L03.115 - Cellulitis of right lower limb Status: Acute Assessment and Plan: * IV antibiotics * Wound care consult thank you for recommendations * White blood cell count 9.9 today * Trend labs * Trend symptoms (5) Insulin dependent diabetes mellitus: Status: Chronic Assessment and Plan: * Glucose 331 * Continue home Lantus 50 units daily * Insulin sliding scale * 9 units aspart before meals, increase to 12 units * Hypoglycemic protocol * Carb consistent diet * Trend glucose * Labs in the a.m. (6) Diabetic foot ulcer: Qualifiers: Diabetes mellitus type: type 2 Diabetic foot ulcer location: heel Laterality: right Non-pressure ulcer stage: with fat layer exposed Qualified Code(s): E11.621 - Type 2 diabetes mellitus with foot ulcer; L97.412 - Non- pressure chronic ulcer of right heel and midfoot with fat layer exposed Code(s): E11.621 - Type 2 diabetes mellitus with foot ulcer; L97.509 - Non-pressure chronic ulcer of other part of unspecified foot with unspecified severity Status: Acute Assessment and Plan: * Wound care consult * Follow recommendations by wound care * Follow-up outpatient after discharge (7) Diarrhea:
--- NOTE | 2021-06-19 10:55 | PM.DS ---
DS: Admitting Diagnosis Discharge Date Disease service 06/19/2021 at 7:53 a.m. Admitting Diagnosis Community-acquired pneumonia DS: Discharge Diagnosis Discharge Diagnosis (1) Pneumonia: Qualifiers: Laterality: bilateral Lung location: unspecified part of lung Pneumonia type: due to unspecified organism Qualified Code(s): J18.9 - Pneumonia, unspecified organism Code(s): J18.9 - Pneumonia, unspecified organism Status: Acute Assessment and Plan: Chest x-ray shows development of moderate bibasilar pneumonia and/or edema (06/16/21) Repeat chest xray 06/17/21 no changes Patient requiring 5 L nasal cannula Supplemental oxygen wean to maintain a saturation greater than 90% D.Dimer elevated 0.71 CTA: No PE, right lower lobe and subsegmental left lower lobe PNA ABG respiratory alkalosis COVID swab is negative IV Rocephin and Zithromax Cultures NGTD Deescalate antibiotics with culture results Remdesivir and Decadron stopped at this time Started solumedrol 40mg Q8hr, consider deescalate and convert to PO Atrovent and albuterol nebs added (2) Chronic obstructive pulmonary disease: Code(s): J44.9 - Chronic obstructive pulmonary disease, unspecified Status: Chronic Assessment and Plan: Consider a mix of COPD exacerbation with PNA, increased oxygen demand Albuterol and atrovent nebs Q6hr km IV antibiotics Steroids changed to solumedrol 40mg IV Q8hr, Consider changing to PO Prednisone Supplemental oxygen, maintain saturation >90% Incentive spirometer Pep therapy Pulmonary consult thank you for recommendations Smoking cessation education (3) Hyperglycemia, unspecified: Code(s): R73.9 - Hyperglycemia, unspecified Status: Acute Assessment and Plan: Glucose runs 300-400 Glucose on labs 331 Beta hydroxybutyrate 2.09 (06/16/21) UA shows 3+ glucose, no ketones indicates HHS Elevated WBC, trending down Lantus 52units, aspart 9 units with meals, sliding scale A1c from 03/05/21 13.3 Repeat A1c in the am Trend labs (4) Cellulitis of right lower extremity: Code(s): L03.115 - Cellulitis of right lower limb Status: Acute Assessment and Plan: IV antibiotics Wound care consult thank you for recommendations White blood cell count 9.9 today Trend labs Trend symptoms (5) Insulin dependent diabetes mellitus: Status: Chronic Assessment and Plan: Glucose 331 Continue home Lantus 50 units daily Insulin sliding scale 9 units aspart before meals, increase to 12 units Hypoglycemic protocol Carb consistent diet Trend glucose Labs in the a.m. (6) Diabetic foot ulcer: Qualifiers: Diabetes mellitus type: type 2 Diabetic foot ulcer location: heel Laterality: right Non-pressure ulcer stage: with fat layer exposed Qualified Code(s): E11.621 - Type 2 diabetes mellitus with foot ulcer; L97.412 - Non-pressure chronic ulcer of right heel and midfoot with fat layer exposed Code(s): E11.621 - Type 2 diabetes mellitus with foot ulcer; L97.509 - Non-pressure chronic ulcer of other part of unspecified foot with unspecified severity Status: Acute Assessment and Plan: Wound care consult Follow recommendations by wound care Follow-up outpatient after discharge (7) Diarrhea: Code(s): R19.7 - Diarrhea, unspecified Status: Acute Assessment and Plan: 5-6 episodes of diarrhea per day Add banatrol supplement Consider C.Diff if needed Encourage fluid intake (8) Diabetic neuropathy: Code(s): E11.40 - Type 2 diabetes mellitus with diabetic neuropathy, unspecified Status: Chronic Assessment and Plan: Reports no feeling up to the knees Continue gabapentin 600 mg daily (9) Tobacco dependence: Code(s): F17.200 - Nicotine dependence, unspecified, uncomplicated
[2021-06-19 11:55] LABS: Glucose Point of Care 436 mg/dl (65-105)
[2021-06-19] MEDS: INSULIN ASPART (*BKC) 100 UNITS/ML 12 UNITS SUB-Q (12:01)
[2021-06-19 14:05] VITALS: PULSE 88; RESP 18
--- NOTE | 2021-06-19 14:49 | PC.NURSE ---
Per I can give antibiotics early before discharge. Pharmacy okayed this.
[2021-06-19 14:55] VITALS: BP 127/69; PULSE 82; RESP 12; TEMP 36.4; O2SAT 95
[2021-06-19] MEDS: UMECLIDINIUM/VILANTEROL 62.5-25 MCG ELLIPTA 1 PUFF INHALATION (15:37)
== END 2021-06-19 16:04 | disposition home or self-care (01) | DRG 194 ==
LOC: ANHED 16:24 → ANH3MEDSUR 06-17 07:34
PROVIDERS: Emergency Medicine; Nurse Practitioner; Physician Assistant; Admitting Provider Internal Medicine; Emergency Provider Emergency Medicine; PCP Family Medicine; Visit Provider Internal Medicine
DX: J18.9 Pneumonia, unspecified organism (principal); J44.0 Chronic obstructive pulmonary disease with (acute) lower respiratory infection; J44.1 Chronic obstructive pulmonary disease with (acute) exacerbation; L03.115 Cellulitis of right lower limb; E87.1 Hypo-osmolality and hyponatremia; E11.621 Type 2 diabetes mellitus with foot ulcer; L97.519 Non-pressure chronic ulcer of other part of right foot with unspecified severity; E11.65 Type 2 diabetes mellitus with hyperglycemia; E11.42 Type 2 diabetes mellitus with diabetic polyneuropathy; F31.9 Bipolar disorder, unspecified; Z20.822 Contact with and (suspected) exposure to COVID-19; R19.7 Diarrhea, unspecified; M79.7 Fibromyalgia; G47.33 Obstructive sleep apnea (adult) (pediatric); E78.5 Hyperlipidemia, unspecified; M19.90 Unspecified osteoarthritis, unspecified site; K21.9 Gastro-esophageal reflux disease without esophagitis; F17.210 Nicotine dependence, cigarettes, uncomplicated; Z90.49 Acquired absence of other specified parts of digestive tract; Z90.710 Acquired absence of both cervix and uterus
CPT/HCPCS: 36415; 36600; 71045; 71046; 71275; 80048; 80053; 80076; 82010; 82565; 82728; 82805; 82948; 83605; 83615; 83735; 83880; 84145; 84460; 84484; 85025; 85380; 85610; 86140; 87040; 87070; 87077; 87186; 87205; 93005; 94640; 94667; 96361; 96365; 96366; 96367; 96372; 96374; 96375; 99285; A9270; C9803; G0378; J0456; J0696; J1100; J1200; J1650; J1815; J2920; J7030; Q9967; U0003; U0005

== ENCOUNTER 2021-08-07 07:49 | Outpatient (RCR) | payer OTHER, SELFPAY ==
--- NOTE | 2021-07-17 13:34 | PCWOUND ---
WOCN NOTE Patient did not show up for appointment. left message to reschedule.
== END 2021-09-22 08:20 | disposition home or self-care (01) ==
LOC: ANHWOC 07:49
PROVIDERS: PCP Family Medicine; Visit Provider Family Medicine
DX: E11.00 Type 2 diabetes mellitus with hyperosmolarity without nonketotic hyperglycemic-hyperosmolar coma (NKHHC) (principal); E11.65 Type 2 diabetes mellitus with hyperglycemia; Z91.14 Patient's other noncompliance with medication regimen
CPT/HCPCS: 99212; 99213; G0463

== ENCOUNTER 2021-10-09 12:44 | Outpatient (CLI) | payer OTHER, SELFPAY ==
--- NOTE | 2021-10-13 12:24 | WPDHOLTEREM ---
Holter/Event Monitor Holter/Event Monitor Date of procedure: 10/09/21 Holter/Event Procedure: 24 Hr Holter Monitor Indications: Cardiac arrhythmias Conclusion: 1. 24 hour holter monitor on 10/09/21. 2. Underlying rhythm is sinus rhythm. HR range 76-111 bpm; average HR 89 bpm. 3. No premature supraventricular complexes. No supraventricular tachycardia. 4. There are 607 premature ventricular complexes. No ventricular tachycardia. 5. No sinoatrial or atrioventricular blocks. No significant pauses greater than 2 seconds. 6. Patient reports symptoms of dizziness which demonstrate sinus rhythm, HR range 92-107 bpm.
== END 2021-10-09 12:45 | disposition home or self-care (01) ==
LOC: ANHCARD 12:46
PROVIDERS: PCP Family Medicine; Visit Provider Nurse Practitioner Family
DX: I49.9 Cardiac arrhythmia, unspecified (principal)
CPT/HCPCS: 93225; 93226

== ENCOUNTER → 2021-12-06 00:19 | Outpatient (CLI) | payer OTHER, SELFPAY ==
[2021-12-06 12:23] LABS: SARS-CoV-2 RNA PCR Negative
== END ==
PROVIDERS: PCP Family Medicine; Visit Provider Internal Medicine Gastroenterology
DX: Z01.812 Encounter for preprocedural laboratory examination (principal); Z20.822 Contact with and (suspected) exposure to COVID-19
CPT/HCPCS: C9803; U0003; U0005

== ENCOUNTER 2021-12-09 00:41 | Day surgery (SDC) | payer OTHER, SELFPAY ==
[2021-11-28 13:52] VITALS: BMI 29.6
[2021-12-09 09:18] VITALS: BP 115/68; PULSE 100; RESP 18; TEMP 36.4; O2SAT 95
[2021-12-09 09:21] LABS: Glucose Point of Care 259 mg/dl (65-105)
[2021-12-09] MEDS: LACTATED RINGERS 1,000 ML 150 ML IV CONT (09:22)
--- NOTE | 2021-12-09 09:55 | WPDANESEPPF ---
Anes - Initial Pre Proc Eval Procedure: Operation Date: 12/09/21 10:30 Proposed Procedures p Colonoscopy - Delmer Kamara MD Date/Time: 12/09/21 09:55 Surgeon: Delmer Kamara MD Pre Op Diagnosis: diarrhea Patient Data Age: 56 Gender: F Height: 1.7 m Weight: 88.1 kg Last Vital Signs Temp 97.5 F L 12/09/21 09:18 Pulse 100 12/09/21 09:18 Resp 18 12/09/21 09:18 BP 115/68 12/09/21 09:18 Pulse Ox 95 12/09/21 09:18 Allergies Allergy/AdvReac Type Severity Reaction Status Date / Time povidone-iodine Allergy Intermediate rash Verified 12/09/21 09:15 soap [From Betadine] Allergy Intermediate Rash Verified 12/09/21 09:15 Home Medications Medication Instructions Recorded Confirmed Type Rexulti 4 mg PO HS 11/04/19 12/09/21 History duloxetine [Cymbalta] 60 mg PO DAILY 11/04/19 12/09/21 History trazodone 150 mg PO HS PRN 11/04/19 12/09/21 History bupropion HCl 300 mg PO DAILY 02/14/20 12/09/21 History ergocalciferol (vitamin D2) 50,000 unit PO WEEKLY 02/14/20 12/09/21 History [Vitamin D2] gabapentin 600 mg PO DAILY 06/10/20 12/09/21 History dulaglutide 4.5 mg/0.5 mL 4.5 mg SUBCUT WEEKLY 08/27/21 12/09/21 History subcutaneous pen injector insulin glargine 100 unit/mL (3 60 unit SUBCUT QAM ml 11/11/21 12/09/21 History mL) subcutaneous pen insulin lispro 200 unit/mL (3 mL) See Rx Instructions SUBCUT 11/11/21 12/09/21 History subcutaneous pen TIDWMEAL ml amitriptyline 50 mg tablet 50 mg PO HS #90 tablet 12/04/21 12/09/21 Rx Laboratory Tests 12/09/21 09:17 POC Capillary Glucose 259 mg/dl H mg/dl (65-105) Patient hx anesthesia problems: none Family hx anesthesia problems: none Results Review: All pre-operative results and documents have been reviewed as part of the pre-operative evaluation. [facility] Past Medical History Medical History Abdominal adhesions Abdominal distention Abnormal colonoscopy Allergies Atelectasis of both lungs Bipolar disorder BMI 29.0-29.9,adult BMI 30.0-30.9,adult Body mass index [BMI] 31.0-31.9, adult (08/02/17) Body mass index [BMI] 32.0-32.9, adult (03/23/17) Bronchitis Carpal tunnel syndrome of left wrist Chronic back pain Chronic obstructive pulmonary disease Cough Daytime hypersomnolence Depression with anxiety Diabetes mellitus type II, uncontrolled Diabetic foot infection Diabetic neuropathy Diabetic peripheral neuropathy Dyspnea on exertion Dysthymia Encounter for general adult medical examination with abnormal findings Essential hypertension Essential hypertension Fibromyalgia Fracture Right ankle with chronic deformity. Gall bladder disease Gastroesophageal reflux disease Hammertoes of both feet Hematochezia History of blood transfusion Hyperlipidemia Hypovitaminosis D ILD (interstitial lung disease) Insulin dependent diabetes mellitus Hemoglobin A1c was 13.1% on 02/14/2020. Irritable bowel syndrome Irritable bowel syndrome with constipation Irritable bowel syndrome with diarrhea Lactic acidemia Local infection of the skin and subcutaneous tissue, unspecified Lymphedema MDD (major depressive disorder), recurrent episode, with atypical features Microalbuminuria due to type 2 diabetes mellitus Mixed hyperlipidemia Obstructive sleep apnea Onychogryphosis Osteoarthritis Other abnormal and inconclusive findings on diagnostic imaging of breast Other screening mammogram Peripheral polyneuropathy Personal history of other diseases of the digestive system Pes cavus Pneumonia Post-menopausal Proteinuria, unspecified Psychophysiological insomnia PTSD (post-traumatic stress disorder) Pulmonary nodule Rash and nonspecific skin eruption Spondylosis of lumbar region without myelopathy or radiculopathy Tinea corporis Tinea unguium Tobacco dependence Tobacco use Tobacco use disorder Trigger finger of left thumb Tubal Type 2 diabetes me
--- NOTE | 2021-12-09 10:09 | PM.HPGS ---
History of Present Illness History of Present Illness Consent: Risks, benefits, and alternatives have been discussed and questions answered. Patient agrees to proceed with procedure. Chief complaint: diarrhea Narrative: Jeanette Peres is a 56 year old female with diarrhea, had C diff in the past and treated with vancomycin. She did not tolerate questran. Last colonoscopy 2014 Review of Systems Constitutional: Constitutional: Denies headache(s) and Denies weakness Eyes: Eyes: Denies blurry vision ENT: Reports Normal hearing present, Denies headache(s) and Denies neck pain Cardiovascular: Cardiovascular: Denies chest pain and Denies dyspnea Respiratory: Respiratory: Denies dyspnea Gastrointestinal: Gastrointestinal: Reports no additional gastrointestinal complaints Genitourinary: Genitourinary: Denies dysuria Musculoskeletal: Musculoskeletal: Denies neck pain Integumentary/Breasts: Skin/Breast: Denies dry skin Neurologic: Reports Normal hearing present, Denies headache(s) and Denies weakness Psychiatric: Psychiatric: Denies anxiety Endocrine: Endocrine: Denies change in body appearance Hematologic/Lymphatic: Hematologic/Lymphatic: Denies easy bleeding Allergic/Immunologic: Allergic/Immunologic: Denies urticaria PMFSH Past Medical History Medical History Abdominal adhesions Abdominal distention Abnormal colonoscopy Allergies Atelectasis of both lungs Bipolar disorder BMI 29.0-29.9,adult BMI 30.0-30.9,adult Body mass index [BMI] 31.0-31.9, adult (08/02/17) Body mass index [BMI] 32.0-32.9, adult (03/23/17) Bronchitis Carpal tunnel syndrome of left wrist Chronic back pain Chronic obstructive pulmonary disease Cough Daytime hypersomnolence Depression with anxiety Diabetes mellitus type II, uncontrolled Diabetic foot infection Diabetic neuropathy Diabetic peripheral neuropathy Dyspnea on exertion Dysthymia Encounter for general adult medical examination with abnormal findings Essential hypertension Essential hypertension Fibromyalgia Fracture Right ankle with chronic deformity. Gall bladder disease Gastroesophageal reflux disease Hammertoes of both feet Hematochezia History of blood transfusion Hyperlipidemia Hypovitaminosis D ILD (interstitial lung disease) Insulin dependent diabetes mellitus Hemoglobin A1c was 13.1% on 02/14/2020. Irritable bowel syndrome Irritable bowel syndrome with constipation Irritable bowel syndrome with diarrhea Lactic acidemia Local infection of the skin and subcutaneous tissue, unspecified Lymphedema MDD (major depressive disorder), recurrent episode, with atypical features Microalbuminuria due to type 2 diabetes mellitus Mixed hyperlipidemia Obstructive sleep apnea Onychogryphosis Osteoarthritis Other abnormal and inconclusive findings on diagnostic imaging of breast Other screening mammogram Peripheral polyneuropathy Personal history of other diseases of the digestive system Pes cavus Pneumonia Post-menopausal Proteinuria, unspecified Psychophysiological insomnia PTSD (post-traumatic stress disorder) Pulmonary nodule Rash and nonspecific skin eruption Spondylosis of lumbar region without myelopathy or radiculopathy Tinea corporis Tinea unguium Tobacco dependence Tobacco use Tobacco use disorder Trigger finger of left thumb Tubal Type 2 diabetes mellitus with diabetic polyneuropathy, without long-term current use of insulin Type 2 diabetes mellitus with hyperglycemia, without long-term current use of insulin 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 URI, acute Urinary tract infection Urine frequency Varicose veins of both lower extremities with inflammation Surgical History Surgical History History of breast biopsy left breast History of cardiac catheterization History of cholecystectomy History of dilatation and curetta
[2021-12-09 10:32] VITALS: BP 101/42; PULSE 90; RESP 17; O2SAT 99
[2021-12-09 10:42] VITALS: BP 112/67; PULSE 88; RESP 22; O2SAT 100
[2021-12-09 10:47] LABS: Glucose Point of Care 212 mg/dl (65-105)
[2021-12-09 10:52] VITALS: BP 121/73; PULSE 87; RESP 16; O2SAT 100
== END 2021-12-09 11:05 | disposition home or self-care (01) ==
PROVIDERS: PCP Family Medicine; Visit Provider Internal Medicine Gastroenterology
PROC: 0DJD8ZZ Inspection of Lower Intestinal Tract, Via Natural or Artificial Opening Endoscopic (ICD-10-PCS; CPT 45378; principal; 2021-12-09 10:30)
DX: Z12.11 Encounter for screening for malignant neoplasm of colon (principal); R19.7 Diarrhea, unspecified; K52.89 Other specified noninfective gastroenteritis and colitis; G56.02 Carpal tunnel syndrome, left upper limb; J44.9 Chronic obstructive pulmonary disease, unspecified; F41.8 Other specified anxiety disorders; E11.9 Type 2 diabetes mellitus without complications; E11.42 Type 2 diabetes mellitus with diabetic polyneuropathy; F34.1 Dysthymic disorder; I10 Essential (primary) hypertension; M79.7 Fibromyalgia; K82.9 Disease of gallbladder, unspecified; E78.5 Hyperlipidemia, unspecified; K21.9 Gastro-esophageal reflux disease without esophagitis; K92.1 Melena; E55.9 Vitamin D deficiency, unspecified; J84.9 Interstitial pulmonary disease, unspecified; K58.2 Mixed irritable bowel syndrome; E87.2 Acidosis; I89.0 Lymphedema, not elsewhere classified; F32.9 Major depressive disorder, single episode, unspecified; R80.9 Proteinuria, unspecified; E78.2 Mixed hyperlipidemia; G47.33 Obstructive sleep apnea (adult) (pediatric); L60.2 Onychogryphosis; F43.10 Post-traumatic stress disorder, unspecified; E11.65 Type 2 diabetes mellitus with hyperglycemia; Z90.49 Acquired absence of other specified parts of digestive tract; F17.210 Nicotine dependence, cigarettes, uncomplicated; Z79.4 Long term (current) use of insulin; E66.9 Obesity, unspecified; Z68.30 Body mass index [BMI] 30.0-30.9, adult; E11.49 Type 2 diabetes mellitus with other diabetic neurological complication
CPT/HCPCS: 45380; 82948; 88305; C9803; J2704; J7120; U0003; U0005

== ENCOUNTER 2022-01-01 07:32 | Outpatient (RCR) | payer OTHER, SELFPAY ==
[2021-11-12 10:31] VITALS: BMI 30.1
== END 2022-02-10 23:59 | disposition home or self-care (01) ==
LOC: ANHWOC 07:32
PROVIDERS: PCP Family Medicine; Visit Provider Nurse Practitioner Family
DX: L03.115 Cellulitis of right lower limb (principal); L02.32 Furuncle of buttock
CPT/HCPCS: 99212; A9270; G0463

== ENCOUNTER 2022-02-03 13:05 | Outpatient (CLI) | payer OTHER, SELFPAY ==
[2022-02-03 13:58] LABS: Anion Gap 11 mmol/L (8-16); Blood Urea Nitrogen 4 mg/dL (7-17); Calcium 8.2 mg/dL (8.4-10.2); Carbon Dioxide 25 mmol/L (22-30); Chloride 98 mmol/L (98-107); Estimated Glomerular Filt Rate > 60; Glucose 363 mg/dL (65-110); Potassium 2.3 mmol/L (3.4-5.0); Sodium 134 mmol/L (137-145)
== END 2022-02-03 13:06 | disposition home or self-care (01) ==
LOC: ANHLAB 13:07
PROVIDERS: PCP Family Medicine; Visit Provider Nurse Practitioner Family
DX: E87.6 Hypokalemia (principal)
CPT/HCPCS: 36415; 80048

== ENCOUNTER 2022-02-06 10:56 | Outpatient (CLI) | payer OTHER, SELFPAY ==
[2022-02-06 12:33] LABS: Potassium 2.1 mmol/L (3.4-5.0)
== END 2022-02-06 10:57 | disposition home or self-care (01) ==
LOC: ANHLAB 10:58
PROVIDERS: PCP Family Medicine; Visit Provider Nurse Practitioner Family
DX: E87.6 Hypokalemia (principal)
CPT/HCPCS: 36415; 84132

== ENCOUNTER 2022-02-06 16:13 | Inpatient (IN) | payer OTHER, SELFPAY ==
--- NOTE | ~2022-02-06 | XR_ITS ---
EXAMINATION: XR chest 1V portable DATE: 02/06/2022 17:42 INDICATION: Dizziness. TECHNIQUE: A single frontal view of the chest was obtained. COMPARISON: Chest single view 06/17/2021, chest CT 06/18/2021 FINDINGS: The chest demonstrates clear lungs without pneumonia, pleural effusion, or pneumothorax. Th e heart size is normal. There is a prominent left paracardial fat pad. IMPRESSION: 1. No acute cardiopulmonary disease. Reviewed, dictated and finalized at location A.
[2022-02-06 16:15] VITALS: BP 126/69; PULSE 95; RESP 16; TEMP 37; O2SAT 97
--- NOTE | 2022-02-06 16:19 | ECG_ITS ---
Measurements Intervals [place] Rate: 88 P: -2 KS: 194 QRS: 8 QRSD: 94 T: 52 QT: 372 QTc: 451 Interpretive Statements SINUS RHYTHM VENTRICULAR PREMATURE COMPLEX INCOMPLETE RIGHT BUNDLE BRANCH BLOCK BORDERLINE ST-T WAVE ABNORMALITY- LAT/HIGH LAT LEADS BORDERLINE ECG Electronically Signed On 02-06-2022 21:29:51 CDT by Jun Navarro D.O.
[2022-02-06 16:47] LABS: Basophils Absolute Auto 0.1 K/mm3 (0.0-0.1); Basophils Percent Auto 0.3 % (0.2-1.2); Eosinophils Absolute Auto 0.3 K/mm3 (0-0.3); Eosinophils Percent Auto 1.7 % (0-4.4); Hematocrit 40.4 % (37.0-47.0); Hemoglobin 13.3 g/dL (12.0-15.0); Immature Granulocyte Absolute 0.06 K/mm3 (0.00-0.031); Immature Granulocyte Percent A 0.4 % (0-0.5); Lymphocytes Absolute Auto 3.31 K/mm3 (0.9-3.2); Lymphocytes Percent Auto 22.7 % (18.3-44.2); Mean Corpuscular HGB Conc 32.9 g/dl (32-36); Mean Corpuscular Hemoglobin 30.4 pg (26-34); Mean Corpuscular Volume 92.2 fl (80-100); Mean Platelet Volume 10.2 fl (7.4-10.4); Monocytes Absolute Auto 0.6 K/mm3 (0.1-0.6); Monocytes Percent Auto 4.3 % (2.6-8.5); Neutrophils Absolute Auto 10.3 K/mm3 (1.3-6.7); Neutrophils Percent Auto 70.6 % (45.5-73.1); Platelet Count Result 242 k/mm3 (150-375); Red Blood Count 4.38 M/mm3 (4.2-5.4); Red Cell Distribution Width 15.2 % (11.5-14.5); White Blood Count 14.6 K/mm3 (4.5-10.0)
[2022-02-06 16:58] LABS: INR 1.2; Partial Thromboplastin Time 26.2 SECONDS (22.3-36.8); Prothrombin Time 14.4 Seconds (11.1-14.7)
[2022-02-06 17:00] LABS: Alanine Aminotransferase 11 U/L (6-35); Albumin Level 3.5 g/dL (3.5-5.1); Alkaline Phosphatase 114 U/L (38-126); Anion Gap 9 mmol/L (8-16); Aspartate Amino Transferase 19 U/L (14-36); Bilirubin,Total 0.3 mg/dL (0.2-1.3); Blood Urea Nitrogen 4 mg/dL (7-17); Calcium 8.3 mg/dL (8.4-10.2); Carbon Dioxide 26 mmol/L (22-30); Chloride 101 mmol/L (98-107); Estimated CRCL calculation 82 ml/min; Estimated Glomerular Filt Rate > 60; Glucose 179 mg/dL (65-110); Lipase 44 U/L (23-300); Potassium 2.4 mmol/L (3.4-5.0); Sodium 136 mmol/L (137-145)
[2022-02-06 17:08] LABS: Troponin I < 0.012 ng/mL (0.000-0.034)
--- NOTE | 2022-02-06 17:17 | ED.GENADULT ---
HPI - General Adult General Chief complaint: Unspecified Stated complaint: potassium level low Time Seen by Provider: 02/06/22 17:15 Source: RN notes reviewed History of Present Illness HPI narrative: Patient presents emergency department from home for hypokalemia. Patient states has had a history of recurrent hypokalemia for the past several years she states she went to the doctor's office today because she had been feeling she has been having muscle cramps her potassium was again low lab work was done and her potassium came back at 2.1. Patient states that other than having cramps she has had some occasional feelings of her heart fluttering she denies any fevers or chills chest pain shortness of breath abdominal pain nausea vomiting diarrhea or any other symptoms. Denies being on any diuretics Related Data Home Medications Medication Instructions Recorded Confirmed Rexulti 4 mg PO HS 11/04/19 01/29/22 duloxetine [Cymbalta] 60 mg PO DAILY 11/04/19 01/29/22 trazodone 150 mg PO HS PRN 11/04/19 01/29/22 bupropion HCl 300 mg PO DAILY 02/14/20 01/29/22 gabapentin 600 mg PO DAILY 06/10/20 01/29/22 dulaglutide 4.5 mg/0.5 mL 4.5 mg SUBCUT WEEKLY 08/27/21 01/29/22 subcutaneous pen injector insulin glargine 100 unit/mL (3 60 unit SUBCUT QAM ml 11/11/21 01/29/22 mL) subcutaneous pen insulin lispro 200 unit/mL (3 mL) See Rx Instructions SUBCUT 11/11/21 01/29/22 subcutaneous pen TIDWMEAL ml Allergies Allergy/AdvReac Type Severity Reaction Status Date / Time povidone-iodine Allergy Intermediate rash Verified 01/29/22 13:21 soap [From Betadine] Allergy Intermediate Rash Verified 01/29/22 13:21 Review of Systems Review of Systems: Gen.: Denies fevers or chills ENT: Denies congestion Respiratory: Denies shortness of breath or cough CV: Denies chest pain reports palpitations GI: Denies abdominal pain nausea, emesis or diarrhea Musculoskeletal: Denies back pain or muscle pain Neuro: Denies numbness, tingling, weakness or focal weakness Skin: Denies rash Except as documented, all other systems reviewed and negative PMFSH Past Medical History Medical History Abdominal adhesions Abdominal distention Abnormal colonoscopy Allergies Atelectasis of both lungs Bipolar disorder BMI 29.0-29.9,adult BMI 30.0-30.9,adult Body mass index [BMI] 31.0-31.9, adult (08/02/17) Body mass index [BMI] 32.0-32.9, adult (03/23/17) Bronchitis Carpal tunnel syndrome of left wrist Chronic back pain Chronic obstructive pulmonary disease Cough Daytime hypersomnolence Depression with anxiety Diabetes mellitus type II, uncontrolled Diabetic foot infection Diabetic neuropathy Diabetic peripheral neuropathy Dyspnea on exertion Dysthymia Encounter for general adult medical examination with abnormal findings Essential hypertension Essential hypertension Fibromyalgia Fracture Right ankle with chronic deformity. Gall bladder disease Gastroesophageal reflux disease Hammertoes of both feet Hematochezia History of blood transfusion Hyperlipidemia Hypovitaminosis D ILD (interstitial lung disease) Insulin dependent diabetes mellitus Hemoglobin A1c was 13.1% on 02/14/2020. Irritable bowel syndrome Irritable bowel syndrome with constipation Irritable bowel syndrome with diarrhea Lactic acidemia Local infection of the skin and subcutaneous tissue, unspecified Lymphedema MDD (major depressive disorder), recurrent episode, with atypical features Microalbuminuria due to type 2 diabetes mellitus Mixed hyperlipidemia Obstructive sleep apnea Onychogryphosis Osteoarthritis Other abnormal and inconclusive findings on diagnostic imaging of breast Other screening mammogram Peripheral polyneuropathy Personal history of other diseases of the digestive system Pes cavus Pneumonia Post-menopausal Proteinuria, unspecified Psychophysiological insomnia PTSD (post-traumatic stress disorder) Pulmonary nodule Rash
[2022-02-06 17:30] LABS: Magnesium 1.2 mg/dL (1.6-2.3)
[2022-02-06] MEDS: POTASSIUM CHLORIDE 20 MEQ TABLET 40 MEQ PO (17:44)
[2022-02-06] MEDS: POTASSIUM CHLORIDE INJ 40 MEQ in SODIUM CHLORIDE 0.9% IV 500 ML 130 MEQ IVPB (17:45)
--- NOTE | 2022-02-06 18:10 | PC.NURSE ---
Pt walked restroom
[2022-02-06 19:35] LABS: Appearance Urine Clear (Clear); Bilirubin Urine Negative (Negative); Blood Urine Trace-lysed (Negative); Color Urine Yellow (Yellow); Glucose Urine UA Negative (Negative); Ketones Urine Negative (Negative); Leukocyte Esterase Ur 3+ LEU/UL (Negative); Nitrate Urine Negative (Negative); Protein Urine Negative (Negative); Specific Grav Ur <= 1.005 (1.001-1.035); Urobilinogen Urine 0.2 mg/dL (<2.0)
[2022-02-06 19:50] LABS: Bacteria Urine Trace /hpf; Mucus Urine Rare /lpf; RBC Urine 0-2 /hpf (0-2); WBC Urine 31-50 /hpf
[2022-02-06 20:00] VITALS: PULSE 85
[2022-02-06 20:00] LABS: Add Urine Microscopic? YES
[2022-02-06 20:26] LABS: Troponin I < 0.012 ng/mL (0.000-0.034)
[2022-02-06 20:30] VITALS: BP 124/77; PULSE 84; RESP 14; O2SAT 100
--- NOTE | 2022-02-06 20:30 | ADMGEN ---
This patient, Jeanette Peres, was admitted to Medical Room 253-01 at 2030. Patient/family oriented to hospital policies and general routines including ID bracelet, bed and alarms, visiting hours, pain management, procedures, bathroom and other care routines, personal items, smoking policy, room service/diet, and visiting hours. Information on how to activate the Rapid Response Team has been discussed. Patient/Family are encouraged to report perceived risks to care and to ask questions if they do not understand what they are told or what they should do.
[2022-02-06 20:40] VITALS: BP 117/63; PULSE 81; RESP 18; TEMP 36.3; O2SAT 99
[2022-02-06 20:54] LABS: Glucose Point of Care 223 mg/dl (65-105)
[2022-02-06 21:40] VITALS: PULSE 85
[2022-02-06 22:00] VITALS: BP 130/68; PULSE 81; RESP 16; TEMP 36.2; O2SAT 97
--- NOTE | 2022-02-06 22:25 | PM.IMHP ---
H&P: HPI History of Present Illness Date/Time: Greater than 30 minutes spent reviewing chart, evaluating, treating, and counseling patient. Anticipate less than 48 hours admission, will admit under observation. 02/06/22 22:25 Jeanette Peres is a 57 yo F PMHx of bipolar disorder, depression/anxiety, COPD, T2DM on insulin, IBS, HTN/HLD, fibromyalgia. Presents with one week h/o muscle cramps. She went to her PCP's office and was found to be hypokalemic, so patient came to ED for further evaluation. Patient reports she has been having diarrhea, C diff positive and was started on oral vanc that she is suppose to start today. Patient states she has had diarrhea 2/2 C diff since May that has been treated multiple times, but continues to have recurrence of diarrhea. Patient follows with GI, and states she was recently started on budesonide after pathology from biopsy from colonoscopy showed something positive. Patient also reports she has a RLE wound that she has had abx for multiple times, last completed abx last month. She states the wound has began to itch recently, denies erythema, drainage, or pain from site. Patient also has L 1st toe wound that was recently seen by podiatry and started on a powder. She denies any pain, drainage, redness in that site and says it has actually been improving. Patient denies chest pain, SOB, n/v/c, dysuria, hematuria, blood in stool. In ED, patient's vitals stable. Labs remarkable for WBC 14.6, potassium 2.4, magnesium 1.2. UA positive for leukocyte esterase, urine cx pending. Patient given dose of rocephin, 40 mEQ PO potassium, 40 mEQ IV potassium, and 2 g IV Mg. Chief Complaint: Hypokalemia Review of Systems Review of Systems: 10 point ROS completed, negative unless otherwise specified per HPI [facility] Past Medical History Medical History (Updated 02/06/22 @ 22:47 by Darius Roman DO) Abdominal adhesions Abdominal distention Abnormal colonoscopy Allergies Atelectasis of both lungs Bipolar disorder BMI 29.0-29.9,adult BMI 30.0-30.9,adult Body mass index [BMI] 31.0-31.9, adult (08/02/17) Body mass index [BMI] 32.0-32.9, adult (03/23/17) Bronchitis Carpal tunnel syndrome of left wrist Chronic back pain Chronic obstructive pulmonary disease Cough Daytime hypersomnolence Depression with anxiety Diabetes mellitus type II, uncontrolled Diabetic foot infection Diabetic neuropathy Diabetic peripheral neuropathy Dyspnea on exertion Dysthymia Encounter for general adult medical examination with abnormal findings Essential hypertension Essential hypertension Fibromyalgia Fracture Right ankle with chronic deformity. Gall bladder disease Gastroesophageal reflux disease Hammertoes of both feet Hematochezia History of blood transfusion Hyperlipidemia Hypovitaminosis D ILD (interstitial lung disease) Irritable bowel syndrome Irritable bowel syndrome with constipation Irritable bowel syndrome with diarrhea Lactic acidemia Local infection of the skin and subcutaneous tissue, unspecified Lymphedema MDD (major depressive disorder), recurrent episode, with atypical features Microalbuminuria due to type 2 diabetes mellitus Mixed hyperlipidemia Obstructive sleep apnea Onychogryphosis Osteoarthritis Other abnormal and inconclusive findings on diagnostic imaging of breast Other screening mammogram Peripheral polyneuropathy Personal history of other diseases of the digestive system Pes cavus Pneumonia Post-menopausal Proteinuria, unspecified Psychophysiological insomnia PTSD (post-traumatic stress disorder) Pulmonary nodule Rash and nonspecific skin eruption Spondylosis of lumbar region without myelopathy or radiculopathy Tinea corporis Tinea unguium Tobacco dependence Tobacco use Tobacco use disorder Trigger finger of left thumb Tubal Type 2 diabetes mellitus with diabetic polyneuropathy, without long-term current use of insulin Type 2 diabetes mellitus with hyperglycemia, without long-term
[2022-02-06 23:27] LABS: Troponin I < 0.012 ng/mL (0.000-0.034)
[2022-02-06] MEDS: POTASSIUM CHLORIDE 20 MEQ PACKET (FOR LIQUID) 40 MEQ PO (23:53)
[2022-02-06] MEDS: AMITRIPTYLINE HCL 25 MG TABLET 50 MG PO (23:54)
[2022-02-06] MEDS: VANCOMYCIN ORAL 125 MG/2.5 ML SYRUP PO (23:54)
[2022-02-06] MEDS: traZODone HCL 50 MG TABLET 150 MG PO (23:54)
[2022-02-07] VITALS (9 sets, daily range): BP systolic 123–134; BP diastolic 78–80; PULSE 75–105; RESP 16–20; TEMP 36.1–36.3; O2SAT 95–97; BMI 29.7
[2022-02-07] MEDS: MAGNESIUM SULF 2 GM/WATER 50ML 2 GM/50 ML BAG IVPB (00:35)
[2022-02-07] MEDS: GABAPENTIN 300 MG CAPSULE PO ×4 (01:30→16:55)
[2022-02-07] MEDS: VANCOMYCIN ORAL 125 MG/2.5 ML SYRUP PO ×3 (06:16→17:00)
[2022-02-07 06:47] LABS: Basophils Percent Auto 0.4 % (0.2-1.2); Eosinophils Absolute Auto 0.3 K/mm3 (0-0.3); Eosinophils Percent Auto 2.8 % (0-4.4); Hematocrit 37.9 % (37.0-47.0); Hemoglobin 12.6 g/dL (12.0-15.0); Immature Granulocyte Absolute 0.04 K/mm3 (0.00-0.031); Immature Granulocyte Percent A 0.4 % (0-0.5); Lymphocytes Absolute Auto 3.99 K/mm3 (0.9-3.2); Lymphocytes Percent Auto 35.6 % (18.3-44.2); Mean Corpuscular HGB Conc 33.2 g/dl (32-36); Mean Corpuscular Hemoglobin 30.7 pg (26-34); Mean Corpuscular Volume 92.2 fl (80-100); Mean Platelet Volume 10.4 fl (7.4-10.4); Monocytes Absolute Auto 0.5 K/mm3 (0.1-0.6); Monocytes Percent Auto 4.5 % (2.6-8.5); Neutrophils Absolute Auto 6.3 K/mm3 (1.3-6.7); Neutrophils Percent Auto 56.3 % (45.5-73.1); Platelet Count Result 246 k/mm3 (150-375); Red Blood Count 4.11 M/mm3 (4.2-5.4); Red Cell Distribution Width 15.3 % (11.5-14.5); White Blood Count 11.2 K/mm3 (4.5-10.0)
[2022-02-07 07:10] LABS: Alanine Aminotransferase 10 U/L (6-35); Albumin Level 3.1 g/dL (3.5-5.1); Alkaline Phosphatase 114 U/L (38-126); Anion Gap 3 mmol/L (8-16); Aspartate Amino Transferase 18 U/L (14-36); Bilirubin,Total 0.3 mg/dL (0.2-1.3); Blood Urea Nitrogen 4 mg/dL (7-17); Carbon Dioxide 27 mmol/L (22-30); Chloride 107 mmol/L (98-107); Cholesterol 111 mg/dL (0-200); Estimated CRCL calculation 92 ml/min; Estimated Glomerular Filt Rate > 60; Glucose 156 mg/dL (65-110); HDL Direct 23 mg/dL; Potassium 2.6 mmol/L (3.4-5.0); Sodium 137 mmol/L (137-145); Triglycerides 220 mg/dL (<150)
[2022-02-07 07:11] LABS: LDL Cholesterol Direct 48 mg/dL
--- NOTE | 2022-02-07 07:29 | PM.IMPN ---
Progress Note: A&P Assessment and Plan (1) Acute hypokalemia: Code(s): E87.6 - Hypokalemia Status: Acute Assessment and Plan: K 2.6 (2.4) (2.1), Continues to improve. Started on 40meq PO BID this AM. Will recheck potassium at noon. Mg goal >2, K >4. (2) C. difficile diarrhea: Code(s): A04.72 - Enterocolitis due to Clostridium difficile, not specified as recurrent Status: Acute Assessment and Plan: Patient continues to have loose stools. Continue oral vanc (3) Abnormal urinalysis: Code(s): R82.90 - Unspecified abnormal findings in urine Status: Acute Assessment and Plan: Leukocytosis 14.6 upon admission, 11.2 today. UA showing positive leukocyte esterase. Empiric rocephin given in ER. Urine culture pending. (4) Hypomagnesemia: Code(s): E83.42 - Hypomagnesemia Status: Acute Assessment and Plan: 1.2 yesterday, repeat in today. Continue Mg replenishment. (5) Irritable bowel syndrome with diarrhea: Code(s): K58.0 - Irritable bowel syndrome with diarrhea Status: Acute Assessment and Plan: Continue PO budesonide. Manage outpatient. (6) Type 2 diabetes mellitus with hyperglycemia, with long-term current use of insulin: Code(s): E11.65 - Type 2 diabetes mellitus with hyperglycemia; Z79.4 - occupational rehabilitation aide (current) use of insulin Status: Acute Assessment and Plan: GLucose 246 today, A1c 9.9 On basaglar 50 U QAM and Humalog 10 U TID with high dose SSI. Will start lantus 50 U QAM, novolog 8 U TID with SSI. Isolated hypertriglyceridemia on lipid panel. (7) Diabetic infection of right foot: Code(s): E11.628 - Type 2 diabetes mellitus with other skin complications; L08.9 - Local infection of the skin and subcutaneous tissue, unspecified Status: Acute Assessment and Plan: Wound care consult pending Will hold off on abx given reported improvement. Additional Plan Cardiac ruleout: EKG showed partial RBB, holter from September showed PVC burden <1%, no afib, no extended pauses. CXR normal. Serial troponin negative. Subjective Date/time seen: 02/07/22 07:29 Interval history: Jeanette Peres is a 57 yo F PMHx of bipolar disorder, depression/anxiety, COPD, T2DM on insulin, IBS, HTN/HLD, fibromyalgia. Presents with one week h/o muscle cramps. She went to her PCP's office and was found to be hypokalemic, so patient came to ED for further evaluation. Patient reports she has been having diarrhea, C diff positive and was started on oral vanc that we initiated here yesterday. Patient denies any chest pain, shortness a breath, fevers, chills. She reports she has been battling with C diff for several months. She continues to have diarrhea, but denies nausea or vomiting. She has no new concerns today. Review of Systems Review of Systems: All systems reviewed & are unremarkable except as noted in HPI and below Exam Narrative: GENERAL APPEARANCE: Alert and oriented x 3, in no apparent distress. HEENT: PERRL, EOMI. Sclerae anicteric. Moist mucous membranes. NECK: Supple. No JVD or obvious carotid bruits. RESPIRATORY: Respirations are nonlabored. Breath sounds are equal and clear bilaterally. No wheezes, Rhonchi, or rales. CARDIOVASCULAR: Regular rate and rhythm with normal S1-S2. No murmurs, gallops, or rubs. GASTROINTESTINAL: Soft, flat, and benign. No mass, tenderness, guarding, or rebound. No organomegaly or hernia. Bowel sounds are present. SKIN: Warm, dry, well perfused. Good turgor. No lesions, nodules, or rashes noted. Warm and dry. No rash or lesions on limited exam. Left 1st toe wound. EXTREMITIES: No cyanosis, clubbing, or edema. Radial and pedal pulses intact. NEUROLOGICAL: Alert. Cranial nerves 2-12 are grossly intact. No gross focal deficits to casual conversation. PSYCHIATRIC: Cooperative with normal mood
[2022-02-07 07:51] LABS: Magnesium 1.9 mg/dL (1.6-2.3)
[2022-02-07 08:18] LABS: Hemoglobin A1C 8.7 % (<5.7)
[2022-02-07] MEDS: INSULIN ASPART (*BKC) 100 UNITS/ML 8 UNITS SUB-Q ×3 (08:26→16:45)
[2022-02-07] MEDS: INSULIN GLARGINE (*BKC) 100 UNITS/ML 50 UNITS SUB-Q (08:32)
[2022-02-07] MEDS: POTASSIUM CHLORIDE 20 MEQ TABLET.ER 40 MEQ PO ×2 (08:36→16:56)
[2022-02-07] MEDS: BUDESONIDE 3 MG CAP.SR.24H PO ×2 (08:37→16:54)
[2022-02-07] MEDS: ENOXAPARIN 40 MG/0.4 ML SYRINGE SUB-Q (08:38)
[2022-02-07] MEDS: buPROPion HCL XL (24 HR) 150 MG TABCR 300 MG PO (08:39)
[2022-02-07] MEDS: DULoxetine HCL 60 MG CAPSULE.DR PO (08:39)
[2022-02-07] MEDS: NICOTINE (*PBKC) 21 MG PATCH 1 PATCH TRANSDERM (08:40)
[2022-02-07 11:53] LABS: Glucose Point of Care 269 mg/dl (65-105)
--- NOTE | 2022-02-07 12:03 | PCCCNOTE ---
On 02/05/22, the student, [Marion Bello], provided care and completed [facility] documentation on this patient. I have reviewed the student's documentation and agree with the findings.
[2022-02-07] MEDS: INSULIN ASPART (*BKC) 100 UNITS/ML SUB-Q (12:08)
[2022-02-07 13:50] LABS: Potassium 3.1 mmol/L (3.4-5.0)
[2022-02-07 16:45] LABS: Glucose Point of Care 199 mg/dl (65-105)
[2022-02-07] MEDS: AMITRIPTYLINE HCL 25 MG TABLET 50 MG PO (20:53)
[2022-02-07] MEDS: LIDOCAINE 5% PATCH 3 PATCH TRANSDERM (20:54)
[2022-02-07] MEDS: traZODone HCL 50 MG TABLET 150 MG PO (21:06)
[2022-02-07 22:04] LABS: Glucose Point of Care 171 mg/dl (65-105)
[2022-02-08] VITALS (8 sets, daily range): BP systolic 123–138; BP diastolic 74–92; PULSE 72–91; RESP 17–18; TEMP 36.5–37.2; O2SAT 92–97
[2022-02-08] MEDS: VANCOMYCIN ORAL 125 MG/2.5 ML SYRUP PO ×5 (00:35→23:48)
--- NOTE | 2022-02-08 07:32 | PM.IMPN ---
Progress Note: A&P Assessment and Plan (1) UTI (urinary tract infection): Code(s): N39.0 - Urinary tract infection, site not specified Status: Acute Assessment and Plan: Urine culture showing E coli susceptibile to ceftriaxone. WBC 9.0 (14.6) Will transition to p.o. cefdinir today Tract infectious markers (2) Acute hypokalemia: Code(s): E87.6 - Hypokalemia Status: Acute Assessment and Plan: K 3.0 (3.1) (2.6) (2.4) (2.1), still low today, likely due to GI losses. Continue to trend and replenish. Started on 40meq PO BID yesterday, will continue. 1 time dose of 20 mEq p.o. potassium today Goal K >4. (3) C. difficile diarrhea: Code(s): A04.72 - Enterocolitis due to Clostridium difficile, not specified as recurrent Status: Acute Assessment and Plan: Patient continues to have loose stools. Continue oral vanc (4) Hypomagnesemia: Code(s): E83.42 - Hypomagnesemia Status: Acute Assessment and Plan: Mg 1.9 yesterday. Continue to trend and replenish as necessary. (5) Irritable bowel syndrome with diarrhea: Code(s): K58.0 - Irritable bowel syndrome with diarrhea Status: Acute Assessment and Plan: Continue PO budesonide. Manage outpatient. (6) Type 2 diabetes mellitus with hyperglycemia, with long-term current use of insulin: Code(s): E11.65 - Type 2 diabetes mellitus with hyperglycemia; Z79.4 - oysterman (current) use of insulin Status: Acute Assessment and Plan: GLucose 148 today, A1c 9.9 On basaglar 50 U QAM and Humalog 10 U TID with high dose SSI. Will start lantus 50 U QAM, novolog 8 U TID with SSI. Isolated hypertriglyceridemia on lipid panel. Diabetic diet (7) Diabetic infection of right foot: Code(s): E11.628 - Type 2 diabetes mellitus with other skin complications; L08.9 - Local infection of the skin and subcutaneous tissue, unspecified Status: Acute Assessment and Plan: Open wound without signs of erythema, drainage, warmth. Patient follows chronically with wound care for this. Wound care consult pending Will hold off on abx given reported improvement. Additional Plan Cardiac ruleout: EKG showed partial RBB, holter from September showed PVC burden <1%, no afib, no extended pauses. CXR normal. Serial troponin negative. Subjective Date/time seen: 02/08/22 07:32 Interval history: Jeanette Peres is a 57 yo F PMHx of bipolar disorder, depression/anxiety, COPD, T2DM on insulin, IBS, HTN/HLD, fibromyalgia. Presents with one week h/o muscle cramps. She went to her PCP's office and was found to be hypokalemic, so patient came to ED for further evaluation. Patient reports she has been having diarrhea, C diff positive and was started on oral vanc that we initiated here. Patient is feeling better today. She is still having frequent loose stools. She denies any urinary symptoms. Denies chest pain, shortness of breath, fevers, or chills. Review of Systems Review of Systems: All systems reviewed & are unremarkable except as noted in HPI and below Exam Narrative: GENERAL APPEARANCE: Alert and oriented x 3, in no apparent distress. HEENT: PERRL, EOMI. Sclerae anicteric. Moist mucous membranes. NECK: Supple. No JVD or obvious carotid bruits. RESPIRATORY: Respirations are nonlabored. Breath sounds are equal and clear bilaterally. No wheezes, Rhonchi, or rales. CARDIOVASCULAR: Regular rate and rhythm with normal S1-S2. No murmurs, gallops, or rubs. GASTROINTESTINAL: Soft, flat, and benign. No mass, tenderness, guarding, or rebound. No organomegaly or hernia. Bowel sounds are present. SKIN: Warm, dry, well perfused. Good turgor. No lesions, nodules, or rashes noted. Warm and dry. No rash or lesions on limited exam. Left 1st toe wound without drainage, erythema, or warmth. EXTREMITIES: No cyanosis, clubbing, or akilah
[2022-02-08 07:35] LABS: Glucose Point of Care 130 mg/dl (65-105)
[2022-02-08] MEDS: POTASSIUM CHLORIDE 20 MEQ TABLET.ER 40 MEQ PO ×2 (07:58→17:29)
[2022-02-08] MEDS: DULoxetine HCL 60 MG CAPSULE.DR PO (07:59)
[2022-02-08] MEDS: NICOTINE (*PBKC) 21 MG PATCH 1 PATCH TRANSDERM (07:59)
[2022-02-08] MEDS: buPROPion HCL XL (24 HR) 150 MG TABCR 300 MG PO (07:59)
[2022-02-08] MEDS: ENOXAPARIN 40 MG/0.4 ML SYRINGE SUB-Q (07:59)
[2022-02-08] MEDS: GABAPENTIN 300 MG CAPSULE PO ×3 (07:59→18:27)
[2022-02-08] MEDS: BUDESONIDE 3 MG CAP.SR.24H PO (08:03)
[2022-02-08] MEDS: INSULIN ASPART (*BKC) 100 UNITS/ML 8 UNITS SUB-Q ×3 (08:04→16:34)
[2022-02-08] MEDS: INSULIN GLARGINE (*BKC) 100 UNITS/ML 50 UNITS SUB-Q (08:05)
[2022-02-08 09:56] LABS: Basophils Percent Auto 0.3 % (0.2-1.2); Eosinophils Absolute Auto 0.2 K/mm3 (0-0.3); Eosinophils Percent Auto 2.1 % (0-4.4); Hematocrit 37.9 % (37.0-47.0); Hemoglobin 12.5 g/dL (12.0-15.0); Immature Granulocyte Absolute 0.02 K/mm3 (0.00-0.031); Immature Granulocyte Percent A 0.2 % (0-0.5); Lymphocytes Absolute Auto 2.49 K/mm3 (0.9-3.2); Lymphocytes Percent Auto 27.6 % (18.3-44.2); Mean Corpuscular Hemoglobin 30.6 pg (26-34); Mean Corpuscular Volume 92.9 fl (80-100); Mean Platelet Volume 10.1 fl (7.4-10.4); Monocytes Absolute Auto 0.4 K/mm3 (0.1-0.6); Monocytes Percent Auto 4.1 % (2.6-8.5); Neutrophils Absolute Auto 5.9 K/mm3 (1.3-6.7); Neutrophils Percent Auto 65.7 % (45.5-73.1); Platelet Count Result 233 k/mm3 (150-375); Red Blood Count 4.08 M/mm3 (4.2-5.4); Red Cell Distribution Width 15.2 % (11.5-14.5)
[2022-02-08 10:09] LABS: Alanine Aminotransferase 13 U/L (6-35); Albumin Level 3.2 g/dL (3.5-5.1); Alkaline Phosphatase 111 U/L (38-126); Anion Gap 6 mmol/L (8-16); Aspartate Amino Transferase 19 U/L (14-36); Bilirubin,Total 0.2 mg/dL (0.2-1.3); Blood Urea Nitrogen 5 mg/dL (7-17); Calcium 8.5 mg/dL (8.4-10.2); Carbon Dioxide 27 mmol/L (22-30); Chloride 106 mmol/L (98-107); Estimated CRCL calculation 91 ml/min; Estimated Glomerular Filt Rate > 60; Glucose 148 mg/dL (65-110); Sodium 139 mmol/L (137-145)
[2022-02-08 11:30] LABS: Glucose Point of Care 136 mg/dl (65-105)
[2022-02-08] MEDS: POTASSIUM CHLORIDE 20 MEQ PACKET (FOR LIQUID) PO (11:45)
[2022-02-08 12:54] LABS: Magnesium 1.7 mg/dL (1.6-2.3)
[2022-02-08 16:22] LABS: Glucose Point of Care 118 mg/dl (65-105)
[2022-02-08] MEDS: CEFDINIR 300 MG CAPSULE PO (20:32)
[2022-02-08] MEDS: AMITRIPTYLINE HCL 25 MG TABLET 50 MG PO (20:32)
[2022-02-08] MEDS: LIDOCAINE 5% PATCH 3 PATCH TRANSDERM (20:33)
[2022-02-08] MEDS: traZODone HCL 50 MG TABLET 150 MG PO (20:33)
[2022-02-08 20:55] LABS: Glucose Point of Care 141 mg/dl (65-105)
[2022-02-09] VITALS: PULSE 82
[2022-02-09 03:21] VITALS: BP 137/74; PULSE 79; RESP 16; TEMP 36.6; O2SAT 94
[2022-02-09 04:00] VITALS: PULSE 74
[2022-02-09 05:44] LABS: Basophils Percent Auto 0.3 % (0.2-1.2); Eosinophils Absolute Auto 0.1 K/mm3 (0-0.3); Eosinophils Percent Auto 1.4 % (0-4.4); Hematocrit 37.2 % (37.0-47.0); Hemoglobin 12.4 g/dL (12.0-15.0); Immature Granulocyte Absolute 0.04 K/mm3 (0.00-0.031); Immature Granulocyte Percent A 0.4 % (0-0.5); Lymphocytes Absolute Auto 2.71 K/mm3 (0.9-3.2); Lymphocytes Percent Auto 27.2 % (18.3-44.2); Mean Corpuscular HGB Conc 33.3 g/dl (32-36); Mean Corpuscular Hemoglobin 30.9 pg (26-34); Mean Corpuscular Volume 92.8 fl (80-100); Mean Platelet Volume 9.9 fl (7.4-10.4); Monocytes Absolute Auto 0.5 K/mm3 (0.1-0.6); Monocytes Percent Auto 4.8 % (2.6-8.5); Neutrophils Absolute Auto 6.6 K/mm3 (1.3-6.7); Neutrophils Percent Auto 65.9 % (45.5-73.1); Platelet Count Result 227 k/mm3 (150-375); Red Blood Count 4.01 M/mm3 (4.2-5.4); Red Cell Distribution Width 14.9 % (11.5-14.5)
[2022-02-09] MEDS: VANCOMYCIN ORAL 125 MG/2.5 ML SYRUP PO ×2 (06:01→12:03)
[2022-02-09 06:03] LABS: Alanine Aminotransferase 9 U/L (6-35); Albumin Level 3.4 g/dL (3.5-5.1); Alkaline Phosphatase 109 U/L (38-126); Anion Gap 5 mmol/L (8-16); Aspartate Amino Transferase 20 U/L (14-36); Bilirubin,Total 0.3 mg/dL (0.2-1.3); Blood Urea Nitrogen 5 mg/dL (7-17); Calcium 8.4 mg/dL (8.4-10.2); Carbon Dioxide 29 mmol/L (22-30); Chloride 105 mmol/L (98-107); Estimated CRCL calculation 105 ml/min; Estimated Glomerular Filt Rate > 60; Glucose 109 mg/dL (65-110); Sodium 139 mmol/L (137-145)
[2022-02-09 08:00] VITALS: PULSE 80
[2022-02-09 08:02] LABS: Glucose Point of Care 130 mg/dl (65-105)
[2022-02-09] MEDS: POTASSIUM CHLORIDE 20 MEQ PACKET (FOR LIQUID) 40 MEQ PO (08:06)
[2022-02-09] MEDS: INSULIN ASPART (*BKC) 100 UNITS/ML 8 UNITS SUB-Q ×2 (08:06→12:02)
[2022-02-09] MEDS: BUDESONIDE 3 MG CAP.SR.24H PO (08:08)
[2022-02-09] MEDS: ENOXAPARIN 40 MG/0.4 ML SYRINGE SUB-Q (08:08)
[2022-02-09] MEDS: CEFDINIR 300 MG CAPSULE PO (08:08)
[2022-02-09] MEDS: buPROPion HCL XL (24 HR) 150 MG TABCR 300 MG PO (08:08)
[2022-02-09] MEDS: GABAPENTIN 300 MG CAPSULE PO ×2 (08:08→12:03)
[2022-02-09] MEDS: DULoxetine HCL 60 MG CAPSULE.DR PO (08:09)
[2022-02-09] MEDS: NICOTINE (*PBKC) 21 MG PATCH 1 PATCH TRANSDERM (08:09)
[2022-02-09] MEDS: POTASSIUM CHLORIDE 20 MEQ TABLET.ER 40 MEQ PO (08:09)
[2022-02-09] MEDS: INSULIN GLARGINE (*BKC) 100 UNITS/ML 50 UNITS SUB-Q (08:11)
[2022-02-09 11:18] LABS: Glucose Point of Care 310 mg/dl (65-105)
[2022-02-09 11:32] LABS: Potassium 3.4 mmol/L (3.4-5.0)
[2022-02-09 12:00] VITALS: PULSE 70
[2022-02-09] MEDS: INSULIN ASPART (*BKC) 100 UNITS/ML SUB-Q (12:02)
[2022-02-09] MEDS: MUPIROCIN 2% OINT 22 GM TUBE 1 APPLIC TOPICAL (12:03)
--- NOTE | 2022-02-09 13:46 | PM.DS ---
DS: Admitting Diagnosis Discharge Date 02/09/2022 1600 Admitting Diagnosis Hypokalemia DS: Discharge Diagnosis Discharge Diagnosis (1) UTI (urinary tract infection): Code(s): N39.0 - Urinary tract infection, site not specified Status: Acute Assessment and Plan: Patient came to the ER with complaints of 1 week of muscle cramps. She denies any current urinary symptoms. She was found to be hypokalemic and was sent to the ER. Urine culture showing E coli susceptibile to ceftriaxone. WBC 9.0 (14.6) Will discharge with PO cefdinir x 5 days. (2) Acute hypokalemia: Code(s): E87.6 - Hypokalemia Status: Acute Assessment and Plan: K 3.4 (3.1) (2.6) (2.4) (2.1), still low today, likely due to GI losses. Continue to trend and replenish. Started on 40meq PO BID yesterday, will continue upon discharge with close follow up to PCP. Recheck outpatient potassium in 3-5 days (3) C. difficile diarrhea: Code(s): A04.72 - Enterocolitis due to Clostridium difficile, not specified as recurrent Status: Acute Assessment and Plan: Patient continues to have loose stools, she does state that they are improving today. Continue oral vancomycin per outpatient dosing obstructions. (4) Hypomagnesemia: Code(s): E83.42 - Hypomagnesemia Status: Acute Assessment and Plan: Within normal limits today. (5) Irritable bowel syndrome with diarrhea: Code(s): K58.0 - Irritable bowel syndrome with diarrhea Status: Acute Assessment and Plan: Continue PO budesonide. Manage outpatient. (6) Type 2 diabetes mellitus with hyperglycemia, with long-term current use of insulin: Code(s): E11.65 - Type 2 diabetes mellitus with hyperglycemia; Z79.4 - USP (current) use of insulin Status: Acute Assessment and Plan: Glucose 141 today, A1c 9.9. Isolated hypertriglyceridemia on lipid panel. On basaglar 50 U QAM and Humalog 10 U TID with high dose SSI. Continue home diabetic meds upon discharge. Diabetic diet (7) Diabetic infection of right foot: Code(s): E11.628 - Type 2 diabetes mellitus with other skin complications; L08.9 - Local infection of the skin and subcutaneous tissue, unspecified Status: Acute Assessment and Plan: Open wound without signs of erythema, drainage, warmth. Patient follows chronically with wound care for this. Wound care advised continue current regimen with mupirocin ointment to promote healing. Continue current course of treatment. DS: Summary Hospital Course Reason for hospitalization: Hypokalemia/ UTI Hospital Course: see above for full hospital course Status at Discharge Overall status at discharge: patient is progressing back to baseline Time Spent with Patient Time attestation: Total time spent providing and/or coordinating discharge services: 35 mins Time spent: Greater than 30 minutes Exam Narrative: GENERAL APPEARANCE: Alert and oriented x 3, in no apparent distress. HEENT: PERRL, EOMI. Sclerae anicteric. Moist mucous membranes. NECK: Supple. No JVD or obvious carotid bruits. RESPIRATORY: Respirations are nonlabored. Breath sounds are equal and clear bilaterally. No wheezes, Rhonchi, or rales. CARDIOVASCULAR: Regular rate and rhythm with normal S1-S2. No murmurs, gallops, or rubs. GASTROINTESTINAL: Soft, flat, and benign. No mass, tenderness, guarding, or rebound. No organomegaly or hernia. Bowel sounds are present. SKIN: Warm, dry, well perfused. Good turgor. No lesions, nodules, or rashes noted. Warm and dry. No rash or lesions on limited exam. Left 1st toe wound without drainage, erythema, or warmth. EXTREMITIES: No cyanosis, clubbing, or edema. Radial and pedal pulses intact. NEUROLOGICAL: Alert. Cranial nerves 2-12 are grossly intact. No gross focal deficits to casual conversation. PSYCHIATRIC: Cooperative with normal mood
[2022-02-09 14:00] VITALS: BP 141/75; PULSE 77; RESP 20; TEMP 36.2; O2SAT 97
[2022-02-09 14:57] LABS: Glucose Point of Care 191 mg/dl (65-105)
== END 2022-02-09 15:09 | disposition home or self-care (01) | DRG 690 ==
LOC: ANHED 17:43 → ANH2MED 20:04
PROVIDERS: Emergency Medicine; Internal Medicine; Student in an Organized Health Care Education/Training Program; Admitting Provider Family Medicine; Emergency Provider Emergency Medicine; PCP Family Medicine; Visit Provider Internal Medicine
DX: N39.0 Urinary tract infection, site not specified (principal); A04.72 Enterocolitis due to Clostridium difficile, not specified as recurrent; B96.20 Unspecified Escherichia coli [E. coli] as the cause of diseases classified elsewhere; E87.6 Hypokalemia; E83.42 Hypomagnesemia; K58.0 Irritable bowel syndrome with diarrhea; E11.65 Type 2 diabetes mellitus with hyperglycemia; E11.42 Type 2 diabetes mellitus with diabetic polyneuropathy; G47.33 Obstructive sleep apnea (adult) (pediatric); E78.5 Hyperlipidemia, unspecified; K21.9 Gastro-esophageal reflux disease without esophagitis; J44.9 Chronic obstructive pulmonary disease, unspecified; E11.621 Type 2 diabetes mellitus with foot ulcer; L97.519 Non-pressure chronic ulcer of other part of right foot with unspecified severity; F41.8 Other specified anxiety disorders; F43.10 Post-traumatic stress disorder, unspecified; M79.7 Fibromyalgia; F17.210 Nicotine dependence, cigarettes, uncomplicated; Z79.4 Long term (current) use of insulin; Z90.49 Acquired absence of other specified parts of digestive tract
CPT/HCPCS: 36415; 71045; 80053; 80061; 81001; 82948; 83036; 83690; 83735; 84132; 84484; 85025; 85610; 85730; 87077; 87086; 87088; 87186; 93005; 96365; 96366; 96367; 96372; 96375; 99285; A9270; G0378; J0696; J1650; J1815; J3475; J3480; J7040

== ENCOUNTER 2022-02-12 12:41 | Outpatient (CLI) | payer OTHER, SELFPAY ==
[2022-02-12 13:13] LABS: Potassium 3.3 mmol/L (3.4-5.0)
== END 2022-02-12 12:42 | disposition home or self-care (01) ==
LOC: ANHLAB 12:43
PROVIDERS: PCP Family Medicine; Visit Provider Student in an Organized Health Care Education/Training Program
DX: E87.6 Hypokalemia (principal)
CPT/HCPCS: 36415; 84132

== ENCOUNTER 2022-02-16 09:57 | Outpatient (CLI) | payer OTHER, SELFPAY ==
[2022-02-16 10:48] LABS: Cholesterol 129 mg/dL (0-200); HDL Direct 29 mg/dL; Triglycerides 293 mg/dL (<150)
[2022-02-16 10:50] LABS: Magnesium 1.6 mg/dL (1.6-2.3); Potassium 3.8 mmol/L (3.4-5.0)
[2022-02-16 10:59] LABS: LDL Cholesterol Direct 40 mg/dL
[2022-02-16 11:12] LABS: Creatinine Urine 44.2 mg/dL
[2022-02-16 11:17] LABS: Potassium Urine Random 16.7 meq/L
[2022-02-16 11:28] LABS: Free T4 Free Thyroxine 1.34 ng/mL (0.78-2.19); Vitamin D 25 Hydroxy 25.1 ng/mL
[2022-02-16 12:38] LABS: Microalbumin Urine Random < 6.0 mg/L (0-16.7)
== END 2022-02-16 09:58 | disposition home or self-care (01) ==
LOC: ANHLAB 09:59
PROVIDERS: Nurse Practitioner Family; PCP Family Medicine; Visit Provider Nurse Practitioner Family
DX: E11.9 Type 2 diabetes mellitus without complications (principal); E83.42 Hypomagnesemia; E78.5 Hyperlipidemia, unspecified; I10 Essential (primary) hypertension; E87.6 Hypokalemia
CPT/HCPCS: 36415; 80061; 82043; 82306; 82607; 83735; 84132; 84133; 84439; 84443

== ENCOUNTER 2022-04-10 11:52 | Outpatient (CLI) | payer OTHER, SELFPAY ==
[2022-04-10 12:22] LABS: Hematocrit 39.2 % (37.0-47.0); Hemoglobin 13.5 g/dL (12.0-15.0); Mean Corpuscular HGB Conc 34.4 g/dl (32-36); Mean Corpuscular Hemoglobin 31.4 pg (26-34); Mean Corpuscular Volume 91.2 fl (80-100); Mean Platelet Volume 10.9 fl (7.4-10.4); Platelet Count Result 232 k/mm3 (150-375); Red Cell Distribution Width 13.5 % (11.5-14.5); White Blood Count 9.5 K/mm3 (4.5-10.0)
[2022-04-10 12:56] LABS: Erythrocyte Sedimentation Rate 24 mm/hr (0-20)
[2022-04-10 13:09] LABS: Vitamin D 25 Hydroxy 28.9 ng/mL
[2022-04-10 13:18] LABS: Alanine Aminotransferase 10 U/L (6-35); Albumin Level 3.9 g/dL (3.5-5.1); Alkaline Phosphatase 128 U/L (38-126); Anion Gap 9 mmol/L (8-16); Aspartate Amino Transferase 19 U/L (14-36); Bilirubin,Total 0.4 mg/dL (0.2-1.3); Blood Urea Nitrogen 5 mg/dL (7-17); Calcium 8.8 mg/dL (8.4-10.2); Carbon Dioxide 27 mmol/L (22-30); Chloride 100 mmol/L (98-107); Creatine Kinase 30 U/L (30-135); Estimated Glomerular Filt Rate > 60; Glucose 327 mg/dL (65-110); Potassium 3.1 mmol/L (3.4-5.0); Sodium 136 mmol/L (137-145)
[2022-04-10 13:18] LABS: Rheumatoid Factor < 8.6 IU/ML (<12)
== END 2022-04-10 11:53 | disposition home or self-care (01) ==
LOC: ANHLAB 11:54
PROVIDERS: PCP Family Medicine; Visit Provider Nurse Practitioner Family
DX: E55.9 Vitamin D deficiency, unspecified (principal); E11.65 Type 2 diabetes mellitus with hyperglycemia; R52 Pain, unspecified; Z79.4 Long term (current) use of insulin; M79.10 Myalgia, unspecified site; E78.5 Hyperlipidemia, unspecified
CPT/HCPCS: 36415; 80053; 82306; 82550; 84443; 85027; 85652; 86038; 86430

== ENCOUNTER 2022-04-27 09:22 | Outpatient (CLI) | payer OTHER, SELFPAY ==
--- NOTE | ~2022-04-27 | US_ITS ---
EXAMINATION: US soft tissue head and neck DATE: 04/27/2022 11:03 INDICATION: Localized swelling, mass and lump, neck. TECHNIQUE: Multiple grayscale and Doppler ultrasound images of the neck were obtained. COMPARISON: Chest CT 06/18/2021 FINDINGS: There are normal lymph nodes in the right submandibular region in the patient's area of con cern. IMPRESSION: 1. Normal lymph nodes in the right submandibular region in the patient's area of concern. Reviewed, dictated and finalized at location A. IMPRESSION: 1. Normal lymph nodes in the right submandibular region in the patient's area o f concern.
== END 2022-04-27 09:23 | disposition home or self-care (01) ==
PROVIDERS: PCP Family Medicine; Visit Provider Nurse Practitioner Family
DX: R59.0 Localized enlarged lymph nodes (principal)
CPT/HCPCS: 76536

== ENCOUNTER 2022-05-13 15:26 | Outpatient (CLI) | payer OTHER, SELFPAY ==
[2022-05-13 16:21] LABS: Anion Gap 10 mmol/L (8-16); Blood Urea Nitrogen 4 mg/dL (7-17); Calcium 8.4 mg/dL (8.4-10.2); Carbon Dioxide 31 mmol/L (22-30); Chloride 94 mmol/L (98-107); Estimated Glomerular Filt Rate 58; Glucose 198 mg/dL (65-110); Potassium < 2.0 mmol/L (3.4-5.0); Sodium 135 mmol/L (137-145)
== END 2022-05-13 15:27 | disposition home or self-care (01) ==
PROVIDERS: PCP Family Medicine; Referring Provider Nurse Practitioner Family; Visit Provider Nurse Practitioner Family
DX: E87.6 Hypokalemia (principal); A04.72 Enterocolitis due to Clostridium difficile, not specified as recurrent
CPT/HCPCS: 36415; 80048

== ENCOUNTER 2022-05-13 18:41 | Inpatient (IN) | payer OTHER, SELFPAY ==
[2022-05-13] VITALS (26 sets, daily range): BP systolic 77–129; BP diastolic 48–74; PULSE 78–92; RESP 9–24; TEMP 36.5–36.7; O2SAT 96–100; BMI 30.2
--- NOTE | ~2022-05-13 | XR_ITS ---
EXAMINATION: XR chest 1V portable DATE: 05/13/2022 19:42 INDICATION: Dizziness. TECHNIQUE: A single frontal view of the chest was obtained. COMPARISON: Chest single view 02/06/2022, chest CT 06/18/2021 FINDINGS: There is no pneumonia, pleural effusion, or pneumothorax. The heart size is normal. IMPRESSION: 1. No acute cardiopulmonary disease. Reviewed, dictated and finalized at location A.
--- NOTE | 2022-05-13 18:55 | ECG_ITS ---
Measurements Intervals [place] Rate: 84 P: -5 KS: 212 QRS: 1 QRSD: 114 T: 51 QT: 490 QTc: 581 Interpretive Statements SINUS RHYTHM WITH FIRST DEGREE AV BLOCK INCOMPLETE RIGHT BUNDLE BRANCH BLOCK [90+ ms QRS DURATION, TERMINAL R IN V1/V2, 40+ ms S IN I/aVL/V4/V5/V6] SEPTAL MYOCARDIAL INFARCTION , OF INDETERMINATE AGE [40+ ms Q WAVE IN V1/V2] NONSPECIFIC ST AND T-WAVE ABNORMALITY ABNORMAL ECG COMPARED TO ECG 02/06/2022 16:26:01 FIRST DEGREE AV BLOCK NOW PRESENT MYOCARDIAL INFARCT FINDING NOW PRESENT Electronically Signed On 05-14-2022 9:35:20 CDT by Antonio Mohamud M.D.
--- NOTE | 2022-05-13 19:04 | ED.GENADULT ---
HPI - General Adult General Chief complaint: Recheck/Abnormal Lab/Rx Stated complaint: potassium 1.8 from PCP Time Seen by Provider: 05/13/22 19:00 Source: RN notes reviewed History of Present Illness HPI narrative: Patient presents emergency department from home for low potassium. Patient states that she has been having intermittent muscle cramping as well as some intermittent dizziness for the past several days she gone to her PCP today and lab work was drawn from an outpatient lab work had shown potassium of less than 2 and the patient was instructed to come the emergency department for further evaluation. Patient states that she has no dizziness and no muscle cramping at this time she states that dizziness appears to get worse when she gets up she states that she did recently have a course of antibiotics for C. difficile she states she still having diarrhea but is having no abdominal pain she denies any fevers or chills chest pain or shortness of breath Related Data Home Medications Medication Instructions Recorded Confirmed brexpiprazole 4 mg tablet (Rexulti) 4 mg PO HS 11/04/19 04/16/22 duloxetine 60 mg capsule,delayed 60 mg PO DAILY 11/04/19 04/16/22 release (Cymbalta) trazodone 150 mg tablet 150 mg PO HS PRN Insomnia 11/04/19 04/16/22 bupropion HCl 300 mg 24 hr tablet, 300 mg PO DAILY 02/14/20 04/16/22 extended release gabapentin 300 mg capsule See Rx Instructions PO TID 04/10/22 04/16/22 Allergies Allergy/AdvReac Type Severity Reaction Status Date / Time povidone-iodine Allergy Intermediate rash Verified 05/13/22 19:38 soap [From Betadine] Allergy Intermediate Rash Verified 05/13/22 19:38 Review of Systems Review of Systems: Gen.: Denies fevers or chills Eyes: Denies eye pain or visual change ENT: Denies congestion Respiratory: Denies shortness of breath or cough CV: Denies chest pain or palpitations GI: Denies abdominal pain nausea vomiting reports diarrhea Musculoskeletal: Reports muscle cramps Neuro: Reports dizziness denies headache or weakness Skin: Denies rash Except as documented, all other systems reviewed and negative PMFSH Past Medical History Medical History Abdominal adhesions Abdominal distention Abnormal colonoscopy Adult BMI 31.0-31.9 kg/sq m Allergies Atelectasis of both lungs Bipolar disorder C. difficile diarrhea Carpal tunnel syndrome of left wrist Chronic back pain Chronic obstructive pulmonary disease Daytime hypersomnolence Depression with anxiety Diabetic foot infection Diabetic neuropathy Dyspnea on exertion Dysthymia Essential hypertension Essential hypertension Fibromyalgia Fracture Right ankle with chronic deformity. Gall bladder disease Gastroesophageal reflux disease Hammertoes of both feet Hematochezia History of blood transfusion Hyperlipidemia Hypovitaminosis D ILD (interstitial lung disease) Irritable bowel syndrome with constipation and diarrhea Lactic acidemia Lymphedema MDD (major depressive disorder), recurrent episode, with atypical features Microalbuminuria due to type 2 diabetes mellitus Mixed hyperlipidemia Obese Obstructive sleep apnea Onychogryphosis Osteoarthritis Other screening mammogram Peripheral polyneuropathy Pes cavus Pneumonia Post-menopausal Proteinuria, unspecified Psychophysiological insomnia PTSD (post-traumatic stress disorder) Pulmonary nodule Rash and nonspecific skin eruption 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
[2022-05-13 19:12] LABS: Basophils Absolute Auto 0.1 K/mm3 (0.0-0.1); Basophils Percent Auto 0.3 % (0.2-1.2); Eosinophils Absolute Auto 0.2 K/mm3 (0-0.3); Eosinophils Percent Auto 1.3 % (0-4.4); Hematocrit 42.1 % (37.0-47.0); Hemoglobin 14.3 g/dL (12.0-15.0); Immature Granulocyte Absolute 0.07 K/mm3 (0.00-0.031); Immature Granulocyte Percent A 0.4 % (0-0.5); Lymphocytes Absolute Auto 2.84 K/mm3 (0.9-3.2); Lymphocytes Percent Auto 17.9 % (18.3-44.2); Mean Corpuscular Hemoglobin 30.8 pg (26-34); Mean Corpuscular Volume 90.5 fl (80-100); Monocytes Absolute Auto 0.7 K/mm3 (0.1-0.6); Monocytes Percent Auto 4.6 % (2.6-8.5); Neutrophils Percent Auto 75.5 % (45.5-73.1); Platelet Count Result 284 k/mm3 (150-375); Red Blood Count 4.65 M/mm3 (4.2-5.4); Red Cell Distribution Width 13.5 % (11.5-14.5); White Blood Count 15.9 K/mm3 (4.5-10.0)
[2022-05-13 19:22] LABS: INR 1.2; Partial Thromboplastin Time 28.7 SECONDS (22.3-36.8); Prothrombin Time 14.5 Seconds (11.1-14.7)
[2022-05-13 19:26] LABS: Magnesium 1.4 mg/dL (1.6-2.3)
[2022-05-13 19:37] LABS: Troponin I < 0.012 ng/mL (0.000-0.034)
[2022-05-13 19:39] LABS: Alanine Aminotransferase 9 U/L (6-35); Albumin Level 4.1 g/dL (3.5-5.1); Alkaline Phosphatase 106 U/L (38-126); Anion Gap 12 mmol/L (8-16); Aspartate Amino Transferase 17 U/L (14-36); Bilirubin,Total 0.5 mg/dL (0.2-1.3); Blood Urea Nitrogen 4 mg/dL (7-17); Calcium 8.4 mg/dL (8.4-10.2); Carbon Dioxide 29 mmol/L (22-30); Chloride 92 mmol/L (98-107); Estimated CRCL calculation 73 ml/min; Estimated Glomerular Filt Rate > 60; Glucose 265 mg/dL (65-110); Lipase 49 U/L (23-300); Potassium < 2.0 mmol/L (3.4-5.0); Sodium 133 mmol/L (137-145)
[2022-05-13] MEDS: POTASSIUM CHLORIDE INJ 40 MEQ in SODIUM CHLORIDE 0.9% IV 500 ML 130 MEQ IVPB (20:12)
[2022-05-13] MEDS: POTASSIUM CHLORIDE 20 MEQ TABLET 40 MEQ PO (20:13)
[2022-05-13] MEDS: MAGNESIUM SULF 2 GM/WATER 50ML 2 GM/50 ML BAG IVPB (21:24)
[2022-05-13] MEDS: ASPIRIN 325 MG TABLET (22:13)
--- NOTE | 2022-05-13 22:20 | ADMGEN ---
This patient, Jeanette Peres, was admitted to Medical Room 253-01. Patient/family oriented to hospital policies and general routines including ID bracelet, bed and alarms, visiting hours, pain management, procedures, bathroom and other care routines, personal items, smoking policy, room service/diet, and visiting hours. Information on how to activate the Rapid Response Team has been discussed. Patient/Family are encouraged to report perceived risks to care and to ask questions if they do not understand what they are told or what they should do.
--- NOTE | 2022-05-13 22:30 | PC.NURSE ---
Mag and potassium actively infusing during transfer to 2Med floor.
[2022-05-13 23:01] LABS: Troponin I < 0.012 ng/mL (0.000-0.034)
--- NOTE | 2022-05-13 23:19 | PM.IMHP ---
H&P: HPI History of Present Illness Date/Time: 05/13/22 23:19 Chief Complaint: Muscle cramps, fatigue Narrative: Greater than 30 minutes spent reviewing chart, evaluating, treating, counseling patient. Anticipate less than 48 hour admission, will admit under observation 57-year-old female past medical history of bipolar disorder, depression/anxiety, COPD, type 2 diabetes on insulin, IBS, recurrent C diff, HTN/HLD, fibromyalgia. Presents with muscle cramps and fatigue. Patient knows the symptoms typically means she has a low potassium and requested potassium drawn from her PCP, which showed her potassium was 1.8. She was sent here for further evaluation. Patient admits to dizziness when standing up. States she has tried to stay hydrated with water and tea. Was recently treated for recurrent C diff infection with fidaxomicin, which she completed. She is still having diarrhea which she reports is up to 30-40 times a day. In ED, vitals stable. Labs remarkable for white count of 15.9, potassium less than 2, sodium/chloride 133/92, creatinine 0.9 (baseline creatinine around 0.6). Patient was given 40 of potassium IV as well as p.o. for a total of 80. Review of Systems Review of Systems: Ten point ROS reviewed, negative unless otherwise specified per HPI [facility] Past Medical History Medical History Abdominal adhesions Abdominal distention Abnormal colonoscopy Adult BMI 31.0-31.9 kg/sq m Allergies Atelectasis of both lungs Bipolar disorder C. difficile diarrhea Carpal tunnel syndrome of left wrist Chronic back pain Chronic obstructive pulmonary disease Daytime hypersomnolence Depression with anxiety Diabetic foot infection Diabetic neuropathy Dyspnea on exertion Dysthymia Essential hypertension Essential hypertension Fibromyalgia Fracture Right ankle with chronic deformity. Gall bladder disease Gastroesophageal reflux disease Hammertoes of both feet Hematochezia History of blood transfusion Hyperlipidemia Hypovitaminosis D ILD (interstitial lung disease) Irritable bowel syndrome with constipation and diarrhea Lactic acidemia Lymphedema MDD (major depressive disorder), recurrent episode, with atypical features Microalbuminuria due to type 2 diabetes mellitus Mixed hyperlipidemia Obese Obstructive sleep apnea Onychogryphosis Osteoarthritis Other screening mammogram Peripheral polyneuropathy Pes cavus Pneumonia Post-menopausal Proteinuria, unspecified Psychophysiological insomnia PTSD (post-traumatic stress disorder) Pulmonary nodule Rash and nonspecific skin eruption 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 Tinea corporis Tinea unguium Tobacco dependence Tobacco use disorder Trigger finger of left thumb Tubal Type 2 diabetes mellitus with hyperglycemia, without long-term current use of insulin 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 Varicose veins of both lower extremities with inflammation Surgical History Surgical History History of breast biopsy left breast History of cardiac catheterization History of cholecystectomy History of dilatation and curettage History of hysterectomy History of tubal ligation History of umbilical hernia repair S/P partial hysterectomy S/P ventral herniorrhaphy Status post ORIF of fracture of ankle Right ankle Family History Family History Father due to motor vehicle traffic accident Hypertension Bowel cancer Grandparent Diabetes mellitus Other Diabetes mellitus Mother due to motor vehicle traffic accident Sibling Club foot COVID-19 Other Family history of heart disease in male family member before age 55 Social History Social History (Reviewed 05/13/22 @ 19:06 by Jed Keenan
[2022-05-13] MEDS: POTASSIUM CHLORIDE 20 MEQ PACKET (FOR LIQUID) 40 MEQ PO (23:53)
[2022-05-13] MEDS: GABAPENTIN 300 MG CAPSULE PO (23:53)
[2022-05-13] MEDS: AMITRIPTYLINE HCL 25 MG TABLET 50 MG PO (23:53)
[2022-05-14] VITALS (11 sets, daily range): BP systolic 106–140; BP diastolic 60–75; PULSE 71–83; RESP 16–20; TEMP 36.1–36.8; O2SAT 96–100
[2022-05-14 01:01] LABS: Hemoglobin A1C 8.7 % (<5.7)
[2022-05-14] MEDS: POTASSIUM CHLORIDE INJ 40 MEQ in SODIUM CHLORIDE 0.9% IV 500 ML 130 MEQ IVPB (01:18)
[2022-05-14 01:26] LABS: Troponin I 0.012 ng/mL (0.000-0.034)
[2022-05-14] MEDS: traZODone HCL 50 MG TABLET 150 MG PO ×2 (02:11→23:06)
[2022-05-14] MEDS: traMADol HCL (*CRX) 50 MG TABLET PO ×2 (02:15→11:50)
[2022-05-14 05:45] LABS: Basophils Percent Auto 0.3 % (0.2-1.2); Eosinophils Absolute Auto 0.3 K/mm3 (0-0.3); Eosinophils Percent Auto 2.5 % (0-4.4); Hematocrit 37.1 % (37.0-47.0); Hemoglobin 12.4 g/dL (12.0-15.0); Immature Granulocyte Absolute 0.04 K/mm3 (0.00-0.031); Immature Granulocyte Percent A 0.4 % (0-0.5); Lymphocytes Absolute Auto 3.32 K/mm3 (0.9-3.2); Lymphocytes Percent Auto 31.3 % (18.3-44.2); Mean Corpuscular HGB Conc 33.4 g/dl (32-36); Mean Corpuscular Hemoglobin 30.8 pg (26-34); Mean Corpuscular Volume 92.3 fl (80-100); Monocytes Absolute Auto 0.5 K/mm3 (0.1-0.6); Monocytes Percent Auto 4.9 % (2.6-8.5); Neutrophils Absolute Auto 6.4 K/mm3 (1.3-6.7); Neutrophils Percent Auto 60.6 % (45.5-73.1); Platelet Count Result 242 k/mm3 (150-375); Red Blood Count 4.02 M/mm3 (4.2-5.4); Red Cell Distribution Width 13.4 % (11.5-14.5); White Blood Count 10.6 K/mm3 (4.5-10.0)
[2022-05-14 06:00] LABS: Anion Gap 9 mmol/L (8-16); Blood Urea Nitrogen 3 mg/dL (7-17); Calcium 7.9 mg/dL (8.4-10.2); Carbon Dioxide 26 mmol/L (22-30); Chloride 103 mmol/L (98-107); Estimated CRCL calculation 66 ml/min; Estimated Glomerular Filt Rate 58; Glucose 240 mg/dL (65-110); Magnesium 2.2 mg/dL (1.6-2.3); Sodium 138 mmol/L (137-145)
[2022-05-14] MEDS: POTASSIUM CHLORIDE IVPB (06:42)
[2022-05-14] MEDS: SODIUM CHLORIDE 0.9% IVPB (06:42)
[2022-05-14] MEDS: POTASSIUM CHLORIDE 20 MEQ TABLET 60 MEQ PO (06:42)
[2022-05-14 09:30] LABS: Glucose Point of Care 162 mg/dl (65-105)
[2022-05-14] MEDS: ENOXAPARIN 40 MG/0.4 ML SYRINGE SUB-Q (09:37)
[2022-05-14] MEDS: DULoxetine HCL 30 MG CAPSULE.DR PO (09:38)
[2022-05-14] MEDS: FENOFIBRATE 160 MG TABLET PO (09:38)
[2022-05-14] MEDS: buPROPion HCL XL (24 HR) 150 MG TABCR 300 MG PO (09:38)
[2022-05-14] MEDS: MUPIROCIN 2% OINT 22 GM TUBE 1 APPLIC TOPICAL (09:39)
[2022-05-14] MEDS: GABAPENTIN 300 MG CAPSULE 600 MG PO (09:39)
[2022-05-14] MEDS: INSULIN ASPART (*BKC) 100 UNITS/ML 7 UNITS SUB-Q ×3 (09:43→17:42)
[2022-05-14 12:28] LABS: Glucose Point of Care 165 mg/dl (65-105)
[2022-05-14] MEDS: GABAPENTIN 300 MG CAPSULE PO ×2 (12:47→20:40)
--- NOTE | 2022-05-14 14:08 | PM.IMPN ---
Progress Note: A&P Assessment and Plan (1) Electrolyte abnormality: Code(s): E87.8 - Other disorders of electrolyte and fluid balance, not elsewhere classified Status: Acute Assessment and Plan: Likely secondary to ongoing diarrhea. Potassium 2.0 this morning Receive 60 mEq p.o. KCl and 60 mEq IV KCl Recheck this afternoon continue to supplement as needed Magnesium is 2.2 Continue to monitor on telemetry (2) Recurrent Clostridioides difficile infection: Code(s): A49.8 - Other bacterial infections of unspecified site Status: Acute Assessment and Plan: Persistent C diff infection for 1 year. Most recently completed 10 day course of fidaxomicin on 05/11/2022 Patient with persistent loose stools. Reports 30-40 episodes of diarrhea per day She is established with GI. Recent colonoscopy by Dr. Adkins in November 2021 which showed moderate diffuse chronic colitis Mild leukoctyosis noted likely secondary to c. diff Discussed case with GI. Will begin Questran tid Banatrol dietary supplements and probiotics Consider GI consultation if no improvement Contact precautions implemented (3) Type 2 diabetes mellitus with hyperglycemia, with long-term current use of insulin: Code(s): E11.65 - Type 2 diabetes mellitus with hyperglycemia; Z79.4 - medical terminologist (current) use of insulin Status: Acute Assessment and Plan: A1c is 8.7. Continue Accu-Cheks, sliding scale insulin, and hypoglycemic protocol Lantus 44 units qHS NovoLog 7 units t.i.d. with meals Home Januvia is on hold Monitor glucose trends (4) Wound of right lower extremity: Code(s): S81.801A - Unspecified open wound, right lower leg, initial encounter Status: Acute Assessment and Plan: Onset >1 month ago Patient has been applying mupirocin daily and notes overall improvement Evaluated by wound care Recommendations to continue mupirocin ointment and cover with Mepilex She is established with wound care and will continue with outpatient follow-up Subjective Date/time seen: 05/14/22 10:00 Interval history: Date of service: 05/14/2022 Jeanette Peres is a 57-year-old female with a history of recurrent C difficile colitis, bipolar disorder, COPD, type 2 diabetes, hypertension, hyperlipidemia, hypokalemia, and multiple other medical problems who is seen in follow-up for acute hypokalemia. She is feeling better today. Yesterday she endorsed muscle cramping and dizziness. When she awoke this morning though symptoms had resolved. She has had no episodes of dizziness or lightheadedness today. No cramping. She is able to ambulate around her room and getting to the bathroom okay. She reports about 3-4 episodes diarrhea this morning between the hours of 4:00 a.m. to 10:00 a.m.. She states on average, she has about 30-40 diarrhea stools per day. She denies abdominal pain, cramping, bloating, nausea, vomiting, fever, or chills. She is tolerating her diet and her appetite is good. Denies shortness of breath, cough, chest pain. She reports swelling and redness of her right lower extremity which has been present for over 1 month. She has been applying antibacterial ointment to this an has had significant improvement. Review of Systems Review of Systems: All systems reviewed & are unremarkable except as noted in HPI and below Exam Narrative: General: well-nourished, well-appearing 57-year-old female, sitting up in bed, comfortable, NARD Neuro: awake, alert and oriented x4, speech clear, no focal neuro deficits noted HEENMT: normocephalic, atraumatic, EOMI, sclerae anicteric, moist oral mucosa Respiratory: clear to auscultation bilaterally, nonlabored breathing Cardio: regular rate, regular rhythm with S1-S2 Abdomen: nondistended, normoactive bowel sounds, soft, nontender to palpation Extremities: Right lower extremity is mildly erythematous with shallow ulcers with no purulenc
[2022-05-14 14:34] LABS: Potassium 2.5 mmol/L (3.4-5.0)
[2022-05-14] MEDS: POTASSIUM CHLORIDE 20 MEQ PACKET (FOR LIQUID) 40 MEQ PO (15:49)
[2022-05-14 17:19] LABS: Glucose Point of Care 101 mg/dl (65-105)
[2022-05-14] MEDS: CHOLESTYRAMINE (W/ SUGAR) 4 GM POWD.PACK PO ×2 (17:43→20:40)
[2022-05-14] MEDS: SACCHAROMYCES BOULARDII 250 MG CAPSULE PO (17:43)
[2022-05-14 20:12] LABS: Potassium 2.9 mmol/L (3.4-5.0)
[2022-05-14] MEDS: AMITRIPTYLINE HCL 25 MG TABLET 50 MG PO (20:40)
[2022-05-14] MEDS: INSULIN GLARGINE (*BKC) 100 UNITS/ML 44 UNITS SUB-Q (20:40)
[2022-05-14 21:28] LABS: Glucose Point of Care 147 mg/dl (65-105)
[2022-05-14] MEDS: POTASSIUM CHLORIDE 20 MEQ PACKET (FOR LIQUID) 60 MEQ PO (21:33)
[2022-05-14] MEDS: NICOTINE (*PBKC) 21 MG PATCH 1 PATCH TRANSDERM (23:01)
[2022-05-15] VITALS (13 sets, daily range): BP systolic 94–124; BP diastolic 62–80; PULSE 75–83; RESP 16–18; TEMP 36.1–36.9; O2SAT 96–99
[2022-05-15 05:58] LABS: Blood Urea Nitrogen 5 mg/dL (7-17); Calcium 8.1 mg/dL (8.4-10.2); Carbon Dioxide 25 mmol/L (22-30); Chloride 108 mmol/L (98-107); Estimated CRCL calculation 81 ml/min; Estimated Glomerular Filt Rate > 60
[2022-05-15 05:59] LABS: Anion Gap 6 mmol/L (8-16); Glucose 143 mg/dL (65-110); Magnesium 1.7 mg/dL (1.6-2.3); Sodium 139 mmol/L (137-145)
[2022-05-15 06:00] LABS: Potassium 2.8 mmol/L (3.4-5.0)
[2022-05-15 06:09] LABS: Basophils Percent Auto 0.3 % (0.2-1.2); Eosinophils Absolute Auto 0.2 K/mm3 (0-0.3); Eosinophils Percent Auto 1.8 % (0-4.4); Hematocrit 33.9 % (37.0-47.0); Hemoglobin 11.1 g/dL (12.0-15.0); Immature Granulocyte Absolute 0.03 K/mm3 (0.00-0.031); Immature Granulocyte Percent A 0.3 % (0-0.5); Lymphocytes Absolute Auto 2.66 K/mm3 (0.9-3.2); Lymphocytes Percent Auto 27.8 % (18.3-44.2); Mean Corpuscular HGB Conc 32.7 g/dl (32-36); Mean Corpuscular Hemoglobin 30.7 pg (26-34); Mean Corpuscular Volume 93.6 fl (80-100); Mean Platelet Volume 10.1 fl (7.4-10.4); Monocytes Absolute Auto 0.6 K/mm3 (0.1-0.6); Monocytes Percent Auto 5.7 % (2.6-8.5); Neutrophils Absolute Auto 6.1 K/mm3 (1.3-6.7); Neutrophils Percent Auto 64.1 % (45.5-73.1); Platelet Count Result 216 k/mm3 (150-375); Red Blood Count 3.62 M/mm3 (4.2-5.4); Red Cell Distribution Width 13.4 % (11.5-14.5); White Blood Count 9.6 K/mm3 (4.5-10.0)
[2022-05-15] MEDS: MAGNESIUM SULF 2 GM/WATER 50ML 2 GM/50 ML BAG IVPB (08:21)
[2022-05-15] MEDS: POTASSIUM CHLORIDE 20 MEQ TABLET 40 MEQ PO ×4 (08:21→20:11)
[2022-05-15] MEDS: SACCHAROMYCES BOULARDII 250 MG CAPSULE PO ×3 (08:22→17:33)
[2022-05-15] MEDS: FENOFIBRATE 160 MG TABLET PO (08:22)
[2022-05-15] MEDS: buPROPion HCL XL (24 HR) 150 MG TABCR 300 MG PO (08:22)
[2022-05-15] MEDS: MUPIROCIN 2% OINT 22 GM TUBE 1 APPLIC TOPICAL (08:23)
[2022-05-15] MEDS: GABAPENTIN 300 MG CAPSULE 600 MG PO (08:23)
[2022-05-15] MEDS: DULoxetine HCL 30 MG CAPSULE.DR PO (08:24)
[2022-05-15] MEDS: NICOTINE (*PBKC) 21 MG PATCH 1 PATCH TRANSDERM (08:24)
[2022-05-15] MEDS: ENOXAPARIN 40 MG/0.4 ML SYRINGE SUB-Q (08:24)
[2022-05-15] MEDS: INSULIN ASPART (*BKC) 100 UNITS/ML 7 UNITS SUB-Q ×3 (08:51→17:34)
[2022-05-15 09:00] LABS: Glucose Point of Care 198 mg/dl (65-105)
[2022-05-15] MEDS: CHOLESTYRAMINE (W/ SUGAR) 4 GM POWD.PACK PO ×3 (10:10→21:52)
[2022-05-15] MEDS: traMADol HCL (*CRX) 50 MG TABLET PO (11:30)
[2022-05-15 11:59] LABS: Glucose Point of Care 226 mg/dl (65-105)
[2022-05-15] MEDS: GABAPENTIN 300 MG CAPSULE PO ×2 (12:07→20:12)
[2022-05-15] MEDS: INSULIN ASPART (*BKC) 100 UNITS/ML SUB-Q ×2 (12:08→17:34)
--- NOTE | 2022-05-15 12:52 | P.PNIM_ITS ---
Progress Note: A&P Assessment and Plan (1) Electrolyte abnormality: Code(s): E87.8 - Other disorders of electrolyte and fluid balance, not elsewhere classified Status: Acute Assessment and Plan: Likely secondary to ongoing diarrhea. * K 2.8 05/15, Mag 1.7 * KCL 40mg PO q 4 h x 4 doses, Mag sulfate 2 gm IV x 1 * Continue to monitor on telemetry (2) Recurrent Clostridioides difficile infection: Code(s): A49.8 - Other bacterial infections of unspecified site Status: Acute Assessment and Plan: Persistent C diff infection for 1 year. Most recently completed 10 day course of fidaxomicin on 05/11/2022 * Patient with persistent loose stools. Reports innumerable episodes of diarrhea per day * She is established with GI. Recent colonoscopy by Dr. Adkins in November 2021 which showed moderate diffuse chronic colitis * Mild leukoctyosis noted likely secondary to c. diff * Taking Banatrol, Probiotics, Questran per GI recommendations * Suspect collagenous/microscopic colitis with superimposed post cholecystectomy diarrhea * 05/15 added diphenoxylate/atropine q 4h prn * Contact precautions in place (3) Type 2 diabetes mellitus with hyperglycemia, with long-term current use of insulin: Code(s): E11.65 - Type 2 diabetes mellitus with hyperglycemia; Z79.4 - [facility] (current) use of insulin Status: Acute Assessment and Plan: A1c is 8.7. * Continue Accu-Cheks, sliding scale insulin, and hypoglycemic protocol * Lantus 44 units qHS * NovoLog 7 units t.i.d. with meals * Home Januvia is on hold * Monitor glucose trends * 05/15 glucose adequately controlled (4) Wound of right lower extremity: Code(s): S81.801A - Unspecified open wound, right lower leg, initial encounter Status: Acute Assessment and Plan: Onset >1 month ago * Patient has been applying mupirocin daily and notes overall improvement * Evaluated by wound care * Recommendations to continue mupirocin ointment and cover with Mepilex * She is established with wound care and will continue with outpatient follow-up Subjective Date/time seen: 05/15/22 12:52 less diarrhea. Feeling better overall. Appetite good. Some cramping prior to stools. No bleeding. No nausea vomiting. Chronic issues. History recurrent C diff colitis. Reports last colonoscopy about 3 years ago at [facility] in [place]. However, she had one at [facility] 11/2021 with normal exam but with mild diffuse colitis and thickening of collagen plate on path report. Not dizzy or lightheaded today. Complains discomfort in rash in under her abdominal folds. Review of Systems Review of Systems: All systems reviewed & are unremarkable except as noted in HPI and below Exam Narrative: General: well-nourished, well-appearing 57-year-old female, sitting up in bed, comfortable, NARD Neuro: awake, alert and oriented x4, speech clear, no focal neuro deficits noted HEENMT: normocephalic, atraumatic, EOMI, sclerae anicteric, moist oral mucosa Respiratory: clear to auscultation bilaterally, nonlabored breathing Cardio: regular rate, regular rhythm with S1-S2 Abdomen: nondistended, normoactive bowel sounds, soft, nontender to palpation Extremities: Right lower extremity is mildly erythematous with shallow ulcers with no purulence or drainage, no edema, erythema, or tenderness to palpation, DP pulses 2+ bilaterally Psych: appropriate mood and affect, judgment and insight intact Objective Data Vital Signs Vital Signs:
--- NOTE | 2022-05-15 12:52 | PM.IMPN ---
Progress Note: A&P Assessment and Plan (1) Electrolyte abnormality: Code(s): E87.8 - Other disorders of electrolyte and fluid balance, not elsewhere classified Status: Acute Assessment and Plan: Likely secondary to ongoing diarrhea. K 2.8 05/15, Mag 1.7 KCL 40mg PO q 4 h x 4 doses, Mag sulfate 2 gm IV x 1 Continue to monitor on telemetry (2) Recurrent Clostridioides difficile infection: Code(s): A49.8 - Other bacterial infections of unspecified site Status: Acute Assessment and Plan: Persistent C diff infection for 1 year. Most recently completed 10 day course of fidaxomicin on 05/11/2022 Patient with persistent loose stools. Reports innumerable episodes of diarrhea per day She is established with GI. Recent colonoscopy by Dr. Adkins in November 2021 which showed moderate diffuse chronic colitis Mild leukoctyosis noted likely secondary to c. diff Taking Banatrol, Probiotics, Questran per GI recommendations Suspect collagenous/microscopic colitis with superimposed post cholecystectomy diarrhea 05/15 added diphenoxylate/atropine q 4h prn Contact precautions in place (3) Type 2 diabetes mellitus with hyperglycemia, with long-term current use of insulin: Code(s): E11.65 - Type 2 diabetes mellitus with hyperglycemia; Z79.4 - rodent exterminator (current) use of insulin Status: Acute Assessment and Plan: A1c is 8.7. Continue Accu-Cheks, sliding scale insulin, and hypoglycemic protocol Lantus 44 units qHS NovoLog 7 units t.i.d. with meals Home Januvia is on hold Monitor glucose trends 05/15 glucose adequately controlled (4) Wound of right lower extremity: Code(s): S81.801A - Unspecified open wound, right lower leg, initial encounter Status: Acute Assessment and Plan: Onset >1 month ago Patient has been applying mupirocin daily and notes overall improvement Evaluated by wound care Recommendations to continue mupirocin ointment and cover with Mepilex She is established with wound care and will continue with outpatient follow-up Subjective Date/time seen: 05/15/22 12:52 less diarrhea. Feeling better overall. Appetite good. Some cramping prior to stools. No bleeding. No nausea vomiting. Chronic issues. History recurrent C diff colitis. Reports last colonoscopy about 3 years ago at [facility]. However, she had one at [facility] 11/2021 with normal exam but with mild diffuse colitis and thickening of collagen plate on path report. Not dizzy or lightheaded today. Complains discomfort in rash in under her abdominal folds. Review of Systems Review of Systems: All systems reviewed & are unremarkable except as noted in HPI and below Exam Narrative: General: well-nourished, well-appearing 57-year-old female, sitting up in bed, comfortable, NARD Neuro: awake, alert and oriented x4, speech clear, no focal neuro deficits noted HEENMT: normocephalic, atraumatic, EOMI, sclerae anicteric, moist oral mucosa Respiratory: clear to auscultation bilaterally, nonlabored breathing Cardio: regular rate, regular rhythm with S1-S2 Abdomen: nondistended, normoactive bowel sounds, soft, nontender to palpation Extremities: Right lower extremity is mildly erythematous with shallow ulcers with no purulence or drainage, no edema, erythema, or tenderness to palpation, DP pulses 2+ bilaterally Psych: appropriate mood and affect, judgment and insight intact Objective Data Vital Signs Vital Signs: Vital Signs - 24 hr 05/14/22 14:20 05/14/22 18:37 05/14/22 16:00 Temperature 97 F L 97 F L Pulse Rate 71 73 82 Respiratory Rate 16 16 Blood Pressure 116/64 116/71 Pulse Oximetry 100 98 Oxygen Delivery 05/14/22 20:00 05/14/22 20:00 05/14/22 20:00 Temperature 98.2 F Pulse Rate 79 76 80 Respiratory Rate 20 20 Blood Pressure 140/70 Pulse Oximetry 98 99 Oxygen Delivery Room Air 05/15/22 00:00 05/14/22 23:58 05/15
[2022-05-15] MEDS: ACETAMINOPHEN 500 MG TABLET 1000 MG PO ×2 (16:48→23:44)
[2022-05-15 17:19] LABS: Glucose Point of Care 136 mg/dl (65-105)
[2022-05-15] MEDS: AMITRIPTYLINE HCL 25 MG TABLET 50 MG PO (20:12)
[2022-05-15] MEDS: INSULIN GLARGINE (*BKC) 100 UNITS/ML 44 UNITS SUB-Q (20:12)
[2022-05-15] MEDS: traZODone HCL 50 MG TABLET 150 MG PO (20:16)
[2022-05-15 20:49] LABS: Glucose Point of Care 200 mg/dl (65-105)
[2022-05-16] VITALS (8 sets, daily range): BP systolic 120–141; BP diastolic 55–82; PULSE 72–96; RESP 12–18; TEMP 36.4–36.6; O2SAT 90–99
[2022-05-16 05:38] LABS: Anion Gap 11 mmol/L (8-16); Basophils Percent Auto 0.4 % (0.2-1.2); Blood Urea Nitrogen 3 mg/dL (7-17); Calcium 8.5 mg/dL (8.4-10.2); Carbon Dioxide 21 mmol/L (22-30); Chloride 106 mmol/L (98-107); Eosinophils Absolute Auto 0.2 K/mm3 (0-0.3); Estimated CRCL calculation 92 ml/min; Estimated Glomerular Filt Rate > 60; Glucose 262 mg/dL (65-110); Hematocrit 36.2 % (37.0-47.0); Hemoglobin 11.8 g/dL (12.0-15.0); Immature Granulocyte Absolute 0.02 K/mm3 (0.00-0.031); Immature Granulocyte Percent A 0.2 % (0-0.5); Lymphocytes Absolute Auto 2.58 K/mm3 (0.9-3.2); Lymphocytes Percent Auto 31.8 % (18.3-44.2); Magnesium 1.7 mg/dL (1.6-2.3); Mean Corpuscular HGB Conc 32.6 g/dl (32-36); Mean Corpuscular Hemoglobin 30.3 pg (26-34); Mean Corpuscular Volume 93.1 fl (80-100); Mean Platelet Volume 10.4 fl (7.4-10.4); Monocytes Absolute Auto 0.5 K/mm3 (0.1-0.6); Monocytes Percent Auto 5.8 % (2.6-8.5); Neutrophils Absolute Auto 4.8 K/mm3 (1.3-6.7); Neutrophils Percent Auto 58.8 % (45.5-73.1); Platelet Count Result 235 k/mm3 (150-375); Potassium 3.2 mmol/L (3.4-5.0); Red Blood Count 3.89 M/mm3 (4.2-5.4); Red Cell Distribution Width 13.3 % (11.5-14.5); Sodium 138 mmol/L (137-145); White Blood Count 8.1 K/mm3 (4.5-10.0)
[2022-05-16] MEDS: MAGNESIUM SULF 2 GM/WATER 50ML 2 GM/50 ML BAG IVPB (08:04)
[2022-05-16] MEDS: NICOTINE (*PBKC) 21 MG PATCH 1 PATCH TRANSDERM (08:05)
[2022-05-16] MEDS: FENOFIBRATE 160 MG TABLET PO (08:05)
[2022-05-16] MEDS: SACCHAROMYCES BOULARDII 250 MG CAPSULE PO ×3 (08:05→16:13)
[2022-05-16] MEDS: ENOXAPARIN 40 MG/0.4 ML SYRINGE SUB-Q (08:05)
[2022-05-16] MEDS: buPROPion HCL XL (24 HR) 150 MG TABCR 300 MG PO (08:06)
[2022-05-16] MEDS: DULoxetine HCL 30 MG CAPSULE.DR PO (08:06)
[2022-05-16] MEDS: GABAPENTIN 300 MG CAPSULE 600 MG PO (08:06)
[2022-05-16] MEDS: MUPIROCIN 2% OINT 22 GM TUBE 1 APPLIC TOPICAL (08:07)
[2022-05-16] MEDS: POTASSIUM CHLORIDE 20 MEQ TABLET.ER 40 MEQ PO ×3 (08:23→16:13)
[2022-05-16 08:42] LABS: Glucose Point of Care 198 mg/dl (65-105)
[2022-05-16] MEDS: INSULIN ASPART (*BKC) 100 UNITS/ML 7 UNITS SUB-Q ×3 (09:30→17:32)
[2022-05-16] MEDS: CHOLESTYRAMINE (W/ SUGAR) 4 GM POWD.PACK PO ×3 (09:30→21:10)
[2022-05-16 12:02] LABS: Glucose Point of Care 233 mg/dl (65-105)
[2022-05-16] MEDS: INSULIN ASPART (*BKC) 100 UNITS/ML SUB-Q (12:08)
--- NOTE | 2022-05-16 13:12 | P.PNIM_ITS ---
Progress Note: A&P Assessment and Plan (1) Electrolyte abnormality: Code(s): E87.8 - Other disorders of electrolyte and fluid balance, not elsewhere classified Status: Acute Assessment and Plan: Likely secondary to ongoing diarrhea. * 05/15 K 3.2, 05/15, Mag 1.7 * KCL 40mg PO TID, Mag sulfate 2 gm IV x 1 * 05/16 d/c telemetry * Anticipate discharge 05/17 (2) Microscopic colitis: Code(s): K52.839 - Microscopic colitis, unspecified Status: Acute Assessment and Plan: * Suspect collagenous/microscopic colitis with superimposed post cholecystectomy diarrhea * 05/15 added diphenoxylate/atropine q 4h prn * Continued probiotics, Questran, Banatrol * 05/16 schedule diphenoxylate/atropine AC and HS (3) Recurrent Clostridioides difficile infection: Code(s): A49.8 - Other bacterial infections of unspecified site Status: Acute Assessment and Plan: Persistent C diff infection for 1 year. Most recently completed 10 day course of fidaxomicin on 05/11/2022 * Patient with persistent loose stools. Reports innumerable episodes of diarrhea per day * She is established with GI. Recent colonoscopy by Dr. Adkins in November 2021 which showed moderate diffuse chronic colitis * Mild leukoctyosis noted likely secondary to c. diff * Taking Banatrol, Probiotics, Questran per GI recommendations (4) Type 2 diabetes mellitus with hyperglycemia, with long-term current use of insulin: Code(s): E11.65 - Type 2 diabetes mellitus with hyperglycemia; Z79.4 - superintendent marine oil terminal (cu rrent) use of insulin Status: Acute Assessment and Plan: A1c is 8.7. * Continue Accu-Cheks, sliding scale insulin, and hypoglycemic protocol * Lantus 44 units qHS * NovoLog 7 units t.i.d. with meals * 05/16 Home Januvia resumed * Monitor glucose trends * 05/16 FBS 198, will need f/u as outpatient (5) Wound of right lower extremity: Code(s): S81.801A - Unspecified open wound, right lower leg, initial encounter Status: Acute Assessment and Plan: Onset >1 month ago * Patient has been applying mupirocin daily and notes overall improvement * Evaluated by wound care * Recommendations to continue mupirocin ointment and cover with Mepilex * She is established with wound care and will continue with outpatient follow-up Subjective Date/time seen: 05/16/22 13:12 Diarrhea more clear. No cramping. Feels better overall. Meal are well tolerated except they seem to trigger diarrhea Review of Systems Review of Systems: All systems reviewed & are unremarkable except as noted in HPI and below Exam Narrative: General: well-nourished, well-appearing 57-year-old female, sitting up in bed, comfortable, NARD Neuro: awake, alert and oriented x4, speech clear, no focal neuro deficits noted HEENMT: normocephalic, atraumatic, EOMI, sclerae anicteric, moist oral mucosa Respiratory: clear to auscultation bilaterally, nonlabored breathing Cardio: regular rate, regular rhythm with S1-S2 Abdomen: nondistended, normoactive bowel sounds, soft, nontender to palpation Extremities: Right lower extremity is mildly erythematous with shallow ulcers with no purulence or drainage, no edema, erythema, or tenderness to palpation, DP pulses 2+ bilaterally, right first toe with stage 2 plantar ulcer Psych: appropriate mood and affect, judgment and insight intact Objective Data Vital Signs Vital Signs: Vital Signs - 24 hr 05/15/22 13:25 05/15/22
--- NOTE | 2022-05-16 13:12 | PM.IMPN ---
Progress Note: A&P Assessment and Plan (1) Electrolyte abnormality: Code(s): E87.8 - Other disorders of electrolyte and fluid balance, not elsewhere classified Status: Acute Assessment and Plan: Likely secondary to ongoing diarrhea. 05/15 K 3.2, 05/15, Mag 1.7 KCL 40mg PO TID, Mag sulfate 2 gm IV x 1 05/16 d/c telemetry Anticipate discharge 05/17 (2) Microscopic colitis: Code(s): K52.839 - Microscopic colitis, unspecified Status: Acute Assessment and Plan: Suspect collagenous/microscopic colitis with superimposed post cholecystectomy diarrhea 05/15 added diphenoxylate/atropine q 4h prn Continued probiotics, Questran, Banatrol 05/16 schedule diphenoxylate/atropine AC and HS (3) Recurrent Clostridioides difficile infection: Code(s): A49.8 - Other bacterial infections of unspecified site Status: Acute Assessment and Plan: Persistent C diff infection for 1 year. Most recently completed 10 day course of fidaxomicin on 05/11/2022 Patient with persistent loose stools. Reports innumerable episodes of diarrhea per day She is established with GI. Recent colonoscopy by Dr. Adkins in November 2021 which showed moderate diffuse chronic colitis Mild leukoctyosis noted likely secondary to c. diff Taking Banatrol, Probiotics, Questran per GI recommendations (4) Type 2 diabetes mellitus with hyperglycemia, with long-term current use of insulin: Code(s): E11.65 - Type 2 diabetes mellitus with hyperglycemia; Z79.4 - prison (current) use of insulin Status: Acute Assessment and Plan: A1c is 8.7. Continue Accu-Cheks, sliding scale insulin, and hypoglycemic protocol Lantus 44 units qHS NovoLog 7 units t.i.d. with meals 05/16 Home [place] resumed Monitor glucose trends 05/16 FBS 198, will need f/u as outpatient (5) Wound of right lower extremity: Code(s): S81.801A - Unspecified open wound, right lower leg, initial encounter Status: Acute Assessment and Plan: Onset >1 month ago Patient has been applying mupirocin daily and notes overall improvement Evaluated by wound care Recommendations to continue mupirocin ointment and cover with Mepilex She is established with wound care and will continue with outpatient follow-up Subjective Date/time seen: 05/16/22 13:12 Diarrhea more clear. No cramping. Feels better overall. Meal are well tolerated except they seem to trigger diarrhea Review of Systems Review of Systems: All systems reviewed & are unremarkable except as noted in HPI and below Exam Narrative: General: well-nourished, well-appearing 57-year-old female, sitting up in bed, comfortable, NARD Neuro: awake, alert and oriented x4, speech clear, no focal neuro deficits noted HEENMT: normocephalic, atraumatic, EOMI, sclerae anicteric, moist oral mucosa Respiratory: clear to auscultation bilaterally, nonlabored breathing Cardio: regular rate, regular rhythm with S1-S2 Abdomen: nondistended, normoactive bowel sounds, soft, nontender to palpation Extremities: Right lower extremity is mildly erythematous with shallow ulcers with no purulence or drainage, no edema, erythema, or tenderness to palpation, DP pulses 2+ bilaterally, right first toe with stage 2 plantar ulcer Psych: appropriate mood and affect, judgment and insight intact Objective Data Vital Signs Vital Signs: Vital Signs - 24 hr 05/15/22 13:25 05/15/22 16:00 05/15/22 17:46 Temperature 97.5 F L 96.9 F L Pulse Rate 80 82 80 Respiratory Rate 16 16 Blood Pressure 124/80 114/68 Pulse Oximetry 99 98 Oxygen Delivery 05/15/22 20:00 05/15/22 20:00 05/16/22 00:00 Temperature Pulse Rate 75 74 Respiratory Rate Blood Pressure Pulse Oximetry Oxygen Delivery Room Air 05/15/22 21:36 05/16/22 04:00 05/15/22 21:36 Temperature 97.6 F Pulse Rate 77 96 Respiratory Rate 16 Blood Pressure 118/66 118/66 Pulse Oximetry 98
[2022-05-16] MEDS: GABAPENTIN 300 MG CAPSULE PO ×2 (13:40→20:10)
[2022-05-16] MEDS: DIPHENOXYLATE/ATROPINE (*CRX) 2.5 MG TABLET 1 TABLET PO ×2 (16:09→20:09)
[2022-05-16] MEDS: ACETAMINOPHEN 500 MG TABLET 1000 MG PO (16:12)
[2022-05-16 17:24] LABS: Glucose Point of Care 141 mg/dl (65-105)
[2022-05-16] MEDS: INSULIN GLARGINE (*BKC) 100 UNITS/ML 44 UNITS SUB-Q (20:09)
[2022-05-16] MEDS: AMITRIPTYLINE HCL 25 MG TABLET 50 MG PO (20:09)
[2022-05-16] MEDS: traZODone HCL 50 MG TABLET 150 MG PO (20:10)
[2022-05-16 20:25] LABS: Glucose Point of Care 167 mg/dl (65-105)
[2022-05-17] VITALS: BP 120/60; PULSE 76; RESP 16; TEMP 36.4; O2SAT 95
[2022-05-17 05:34] VITALS: BP 124/87; PULSE 73; RESP 18; TEMP 37.1; O2SAT 97
[2022-05-17 05:35] LABS: Anion Gap 7 mmol/L (8-16); Blood Urea Nitrogen 5 mg/dL (7-17); Calcium 8.5 mg/dL (8.4-10.2); Carbon Dioxide 26 mmol/L (22-30); Chloride 107 mmol/L (98-107); Estimated CRCL calculation 81 ml/min; Estimated Glomerular Filt Rate > 60; Glucose 145 mg/dL (65-110); Magnesium 1.6 mg/dL (1.6-2.3); Potassium 3.7 mmol/L (3.4-5.0); Sodium 140 mmol/L (137-145)
[2022-05-17 08:00] VITALS: BP 124/84; PULSE 70; RESP 16; TEMP 37.1; O2SAT 97
[2022-05-17] MEDS: NICOTINE (*PBKC) 21 MG PATCH 1 PATCH TRANSDERM (08:19)
[2022-05-17] MEDS: MAGNESIUM SULF 2 GM/WATER 50ML 2 GM/50 ML BAG IVPB (08:19)
[2022-05-17] MEDS: ENOXAPARIN 40 MG/0.4 ML SYRINGE SUB-Q ×2 (08:19→08:29)
[2022-05-17] MEDS: ACETAMINOPHEN 500 MG TABLET 1000 MG PO (08:21)
[2022-05-17] MEDS: buPROPion HCL XL (24 HR) 150 MG TABCR 300 MG PO (08:22)
[2022-05-17] MEDS: SACCHAROMYCES BOULARDII 250 MG CAPSULE PO ×2 (08:22→12:03)
[2022-05-17] MEDS: POTASSIUM CHLORIDE 20 MEQ TABLET.ER 40 MEQ PO (08:22)
[2022-05-17] MEDS: MAGNESIUM OXIDE 400 MG TABLET PO (08:22)
[2022-05-17] MEDS: GABAPENTIN 300 MG CAPSULE 600 MG PO (08:22)
[2022-05-17] MEDS: DULoxetine HCL 30 MG CAPSULE.DR PO (08:22)
[2022-05-17] MEDS: FENOFIBRATE 160 MG TABLET PO (08:22)
[2022-05-17] MEDS: MUPIROCIN 2% OINT 22 GM TUBE 1 APPLIC TOPICAL (08:24)
[2022-05-17] MEDS: DIPHENOXYLATE/ATROPINE (*CRX) 2.5 MG TABLET 1 TABLET PO ×2 (08:26→12:03)
[2022-05-17] MEDS: INSULIN ASPART (*BKC) 100 UNITS/ML 7 UNITS SUB-Q ×2 (08:30→12:02)
[2022-05-17 08:33] LABS: Glucose Point of Care 136 mg/dl (65-105)
[2022-05-17] MEDS: CHOLESTYRAMINE (W/ SUGAR) 4 GM POWD.PACK PO (09:44)
[2022-05-17 12:00] VITALS: BP 122/60; PULSE 76; RESP 16; TEMP 36.6; O2SAT 98
[2022-05-17 12:00] LABS: Glucose Point of Care 173 mg/dl (65-105)
[2022-05-17] MEDS: GABAPENTIN 300 MG CAPSULE PO (12:03)
--- NOTE | 2022-05-17 12:29 | PM.DS ---
DS: Admitting Diagnosis Discharge Date 05/17/22 Admitting Diagnosis Muscle cramps, fatigue DS: Discharge Diagnosis Discharge Diagnosis (1) Electrolyte abnormality: Code(s): E87.8 - Other disorders of electrolyte and fluid balance, not elsewhere classified Status: Acute (2) Microscopic colitis: Code(s): K52.839 - Microscopic colitis, unspecified Status: Acute (3) Recurrent Clostridioides difficile infection: Code(s): A49.8 - Other bacterial infections of unspecified site Status: Acute (4) Type 2 diabetes mellitus with hyperglycemia, with long-term current use of insulin: Code(s): E11.65 - Type 2 diabetes mellitus with hyperglycemia; Z79.4 - terminal supervisor (current) use of insulin Status: Acute (5) Wound of right lower extremity: Code(s): S81.801A - Unspecified open wound, right lower leg, initial encounter Status: Acute DS: Summary Hospital Course Reason for hospitalization: 57yo female with chronic diarrhea here for muscle cramps and found to have severe hypokalemia. Please see H&P for details Hospital Course: Patient developed muscle cramps and fatigue. Potassium by outpatient lab was 1.8. She is not on oral potassium at home. She was recently treated for recurrent C diff with Fidaxomicin which she completed. She states that her diarrhea did not improve with this treatment and she still has excessive number of diarrheal stools. On admission, her white count was elevated at 16 K but this normalized without antibiotics. Potassium was less than 2 and magnesium was low at 1.4. TSH was normal last month. LFTs normal. Lipase was normal. Troponins were negative x3. EKG showed normal sinus rhythm with first-degree AV block. The first-degree AV block was new which may be related to the hypokalemia. Otherwise she had nonspecific ST T wave changes. Chest x-ray was clear. She was treated with multiple rounds of p.o. and IV potassium. Magnesium was replaced. She continued to have upwards to 20 bowel movements a day. She was eating normally. We started Questran. She does state that she takes Imodium 1 to 2 times a day at home. She is insistent on being discharged. Offered continued hospitalization with a GI consult but she declines and is requesting discharge. She states that she has been dealing with this for quite a while and feels that she is at her baseline. She overall did well and had clinical improvement. She was able to be discharged home on 05/17/2022. Status at Discharge Cognitive/behavioral status at discharge: stable Time Spent with Patient Time attestation: Total time spent providing and/or coordinating discharge services:34 minutes Time spent: Greater than 30 minutes Exam Narrative: AF 98.8 124/84 70 16 97% ra Gen - NARD Chest - CTA bilaterally, nml RR CV - RRR S1/S2 Abd - Soft, NT/ND, Positive BS Ext - No pedal edema. Right leg dressing was clean and dry. Right great toe abrasion was dry with bandaid in place Psych - Nml mood and affect Skin - Warm and dry DS: Data Data Completed and Pending Labs on day of discharge: Labs from last 24 hours 05/17/22 05/17/22 05/17/22 11:57 08:27 04:58 Sodium 140 Potassium 3.7 Chloride 107 Carbon Dioxide 26 Anion Gap 7 L BUN 5 L Creatinine 0.80 Estim Creat Clear Calc 81 Estimated GFR > 60 Glucose 145 H POC Capillary Glucose 173 H 136 H Calcium 8.5 Magnesium 1.6 05/16/22 05/16/22 20:06 17:02 Sodium Potassium Chloride Carbon Dioxide Anion Gap BUN Creatinine Estim Creat Clear Calc Estimated GFR Glucose POC Capillary Glucose 167 H 141 H Calcium Magnesium Discharge Plan Discharge Attending physician on discharge: Patric Gonzalez Discharging Clinician: Patric Gonzalez Anticipated Discharge Date/Time: 05/17/22 12:48 Patient Disposition: Home, Self-Care Activity: as tolerated
[2022-05-18 03:40] LABS: Glucose Point of Care 231 mg/dl (65-105)
== END 2022-05-17 14:30 | disposition home or self-care (01) | DRG 641 ==
LOC: ANHED 20:01 → ANH2MED 21:45
PROVIDERS: Emergency Medicine; Internal Medicine; Physician Assistant; Admitting Provider Internal Medicine; Emergency Provider Emergency Medicine; PCP Family Medicine; Visit Provider Internal Medicine
DX: E87.6 Hypokalemia (principal); J84.9 Interstitial pulmonary disease, unspecified; N17.8 Other acute kidney failure; K52.839 Microscopic colitis, unspecified; E83.42 Hypomagnesemia; A08.8 Other specified intestinal infections; E11.65 Type 2 diabetes mellitus with hyperglycemia; I44.0 Atrioventricular block, first degree; J44.9 Chronic obstructive pulmonary disease, unspecified; F31.9 Bipolar disorder, unspecified; F41.8 Other specified anxiety disorders; I10 Essential (primary) hypertension; K21.9 Gastro-esophageal reflux disease without esophagitis; K58.2 Mixed irritable bowel syndrome; M79.7 Fibromyalgia; E11.621 Type 2 diabetes mellitus with foot ulcer; L97.519 Non-pressure chronic ulcer of other part of right foot with unspecified severity; E11.42 Type 2 diabetes mellitus with diabetic polyneuropathy; D72.829 Elevated white blood cell count, unspecified; G47.33 Obstructive sleep apnea (adult) (pediatric); E78.2 Mixed hyperlipidemia; M19.90 Unspecified osteoarthritis, unspecified site; F43.10 Post-traumatic stress disorder, unspecified; M47.896 Other spondylosis, lumbar region; F17.210 Nicotine dependence, cigarettes, uncomplicated; Z79.4 Long term (current) use of insulin; Z90.49 Acquired absence of other specified parts of digestive tract; Z90.710 Acquired absence of both cervix and uterus
CPT/HCPCS: 36415; 71045; 80048; 80053; 82948; 83036; 83690; 83735; 84132; 84484; 85025; 85610; 85730; 93005; 96365; 96372; 96374; 96375; 96376; 99285; A9270; G0378; J1650; J1815; J3475; J3480; J7030; J7040

== ENCOUNTER 2022-05-21 11:21 | Outpatient (CLI) | payer OTHER, SELFPAY ==
[2022-05-21 12:13] LABS: Albumin Level 3.5 g/dL (3.5-5.1); Anion Gap 9 mmol/L (8-16); Blood Urea Nitrogen 7 mg/dL (7-17); Calcium 9.1 mg/dL (8.4-10.2); Carbon Dioxide 22 mmol/L (22-30); Chloride 101 mmol/L (98-107); Estimated Glomerular Filt Rate > 60; Glucose 321 mg/dL (65-110); Phosphorus 4.1 mg/dL (2.5-4.5); Potassium 4.2 mmol/L (3.4-5.0); Sodium 132 mmol/L (137-145)
[2022-05-21 12:23] LABS: Anion Gap 8 mmol/L (8-16); Blood Urea Nitrogen 7 mg/dL (7-17); Calcium 9.1 mg/dL (8.4-10.2); Carbon Dioxide 23 mmol/L (22-30); Chloride 102 mmol/L (98-107); Estimated Glomerular Filt Rate > 60; Glucose 322 mg/dL (65-110); Magnesium 1.7 mg/dL (1.6-2.3); Potassium 4.2 mmol/L (3.4-5.0); Sodium 133 mmol/L (137-145)
== END 2022-05-21 11:22 | disposition home or self-care (01) ==
LOC: ANHLAB 11:23
PROVIDERS: PCP Family Medicine; Referring Provider Internal Medicine; Visit Provider Nurse Practitioner Family
DX: E87.8 Other disorders of electrolyte and fluid balance, not elsewhere classified (principal); E83.42 Hypomagnesemia
CPT/HCPCS: 36415; 80048; 80069; 83735

== ENCOUNTER 2022-05-26 12:21 | Outpatient (CLI) | payer OTHER, SELFPAY ==
--- NOTE | ~2022-05-26 | XR_ITS ---
EXAMINATION: XR foot RT standing 2V DATE: 05/26/2022 12:58 INDICATION: Unspecified osteoarthritis, unspecified site. TECHNIQUE: 2 views of right foot with weightbearing were obtained. COMPARISON: Right foot radiographs 09/12/2020 FINDINGS: Pes planus is noted. There is lateral subluxation of second metatarsal with respect to inte rmediate cuneiform. There are erosions of first distal phalanx, consistent with osteomyelitis. There is mild osteoarthritis of first metatarsophalangeal joint and mild to moderate osteoarthritis of some of the midfoot joints. There is plate and screw fixation of distal fibula. There is chronic heteroto pic ossification distal to medial and lateral malleoli. There is likely ankylosis of the tibiotalar j oint. There are enthesophytes at the posterior and plantar aspects of calcaneal tuberosity. IMPRESSION: 1. Erosions of first distal phalanx, consistent with osteomyelitis. 2. Chronic Lisfranc joint subluxation. 3. Pes planus. 4. Polyarticular osteoarthritis. Reviewed, dictated and finalized at location A.
--- NOTE | ~2022-05-26 | XR_ITS ---
XR lumbar spine 2-3V DATE: 05/26/2022 12:58 INDICATION: Back pain TECHNIQUE: AP, lateral, coned lateral lumbosacral views COMPARISON: None FINDINGS: There is chronic, likely due to cholecystectomy. There is osteopenia. There is degenerative change of the apophyseal joints in the lower lumbar and lumbosacral area with a ssociated minimal grade 1 anterolisthesis at L5-S1. Moderately prominent degenerative disease at L5-S1. There is mild degenerative disc disease of the re maining lumbar spine. No fracture or bone destruction is detected. The lumbar pedicles appear intact. The sacroiliac joints are intact. IMPRESSION: Osteopenia Moderately prominent degenerative disc disease at L5-S1, mild degenerative disease at the remainder o f the lumbar spine Degenerative change at the apophyseal joints of the lower lumbar and lumbosacral area with associated minimal grade 1 anterolisthesis at L5-S1 Reviewed, dictated and finalized at location B. IMPRESSION: Osteopenia Moderately prominent degenerative disc disease at L5-S1, mild degenerative dise ase at the remainder of the lumbar spine Degenerative change at the apophyseal joints of the lower lumbar and lumbosacra l area with associated minimal grade 1 anterolisthesis at L5-S1
--- NOTE | ~2022-05-26 | XR_ITS ---
EXAMINATION: XR foot LT standing 2V DATE: 05/26/2022 12:58 INDICATION: Unspecified osteoarthritis, unspecified site. TECHNIQUE: 2 views of left foot with weightbearing were obtained. COMPARISON: None. FINDINGS: Bone alignment is normal. No acute fracture. There is a healing fracture of fifth proximal phalanx with callus formation. There is mild osteoarthritis of first metatarsophalangeal joint and so me of the midfoot joints. There are enthesophytes at the posterior and plantar aspects of calcaneal t uberosity. IMPRESSION: 1. Mild polyarticular osteoarthritis. Reviewed, dictated and finalized at location A.
--- NOTE | ~2022-05-26 | XR_ITS ---
EXAM: XR hand BI arthritis min 3V DATE: 05/26/2022 12:58 HISTORY: M19.90 - Unspecified osteoarthritis, unspecified site . COMPARISON: None available. FINDINGS: Slightly decreased mineralization. No fracture or dislocation. No lytic or blastic lesion. Minimal joint space narrowing and osteophytosis in the DIP joints of the fingers and the bilateral t riscaphe, first metacarpal, and first MTP joints. No erosion or periosteal change. Soft tissues withi n normal limits. IMPRESSION: Mild scattered degenerative osteoarthritic changes in the hands. Reviewed, dictated and finalized at location K.
[2022-05-26 14:01] LABS: Alanine Aminotransferase 11 U/L (6-35); Alkaline Phosphatase 122 U/L (38-126); Anion Gap 3 mmol/L (8-16); Aspartate Amino Transferase 24 U/L (14-36); Bilirubin,Total 0.4 mg/dL (0.2-1.3); Blood Urea Nitrogen 9 mg/dL (7-17); Carbon Dioxide 27 mmol/L (22-30); Chloride 97 mmol/L (98-107); Creatine Kinase 26 U/L (30-135); Estimated Glomerular Filt Rate > 60; Glucose 259 mg/dL (65-110); Potassium 4.8 mmol/L (3.4-5.0); Sodium 127 mmol/L (137-145)
[2022-05-29 04:21] LABS: Aldolase 5.3 U/L (<=8.1); Thyroid Peroxidase Antibodies <1 IU/mL (<9)
[2022-06-02 21:21] LABS: ANCA Screen Negative (Negative); Myeloperoxidase Ab <1.0 AI (<1.0); Proteinase-3 Ab <1.0 AI (<1.0); S cerevisiae Ab (IgA) 43.5 U (<=20.0); S cerevisiae Ab (IgG) 34.5 U (<=20.0)
== END 2022-05-26 12:22 | disposition home or self-care (01) ==
PROVIDERS: PCP Family Medicine; Visit Provider Internal Medicine
DX: M79.10 Myalgia, unspecified site (principal); M19.90 Unspecified osteoarthritis, unspecified site; K52.839 Microscopic colitis, unspecified; M19.071 Primary osteoarthritis, right ankle and foot; M19.072 Primary osteoarthritis, left ankle and foot; M19.041 Primary osteoarthritis, right hand; M19.042 Primary osteoarthritis, left hand; M85.88 Other specified disorders of bone density and structure, other site; M51.37 Other intervertebral disc degeneration, lumbosacral region
CPT/HCPCS: 36415; 72100; 73130; 73620; 80053; 82085; 82550; 84443; 86036; 86376; 86671

== ENCOUNTER 2022-05-28 12:20 | Outpatient (CLI) | payer OTHER, SELFPAY ==
[2022-05-28 12:47] LABS: Anion Gap 3 mmol/L (8-16); Blood Urea Nitrogen 9 mg/dL (7-17); Carbon Dioxide 27 mmol/L (22-30); Chloride 97 mmol/L (98-107); Estimated Glomerular Filt Rate > 60; Glucose 338 mg/dL (65-110); Magnesium 1.9 mg/dL (1.6-2.3); Potassium 4.7 mmol/L (3.4-5.0); Sodium 127 mmol/L (137-145)
== END 2022-05-28 12:21 | disposition home or self-care (01) ==
PROVIDERS: PCP Family Medicine; Visit Provider Nurse Practitioner Family
DX: E87.8 Other disorders of electrolyte and fluid balance, not elsewhere classified (principal); E83.42 Hypomagnesemia
CPT/HCPCS: 36415; 80048; 83735

== ENCOUNTER 2022-06-10 11:56 | Outpatient (CLI) | payer OTHER, SELFPAY ==
[2022-06-10 12:32] LABS: Anion Gap 10 mmol/L (8-16); Blood Urea Nitrogen 6 mg/dL (7-17); Calcium 9.2 mg/dL (8.4-10.2); Carbon Dioxide 22 mmol/L (22-30); Chloride 105 mmol/L (98-107); Estimated Glomerular Filt Rate > 60; Glucose 247 mg/dL (65-110); Magnesium 1.7 mg/dL (1.6-2.3); Potassium 3.3 mmol/L (3.4-5.0); Sodium 137 mmol/L (137-145)
== END 2022-06-10 11:57 | disposition home or self-care (01) ==
LOC: ANHLAB 11:57
PROVIDERS: PCP Family Medicine; Visit Provider Nurse Practitioner Family
DX: E83.42 Hypomagnesemia (principal); E87.8 Other disorders of electrolyte and fluid balance, not elsewhere classified
CPT/HCPCS: 36415; 80048; 83735

== ENCOUNTER 2022-06-11 07:20 | Outpatient (RCR) | payer OTHER, SELFPAY ==
--- NOTE | 2022-05-20 02:50 | PC.NURSE ---
Addendum entered by Robert Mullins RN 05/20/22 02:51: on morning of 05/15/2022 Original Note: lab called this information writer with k level of 2.[address] Roman and orders received.
--- NOTE | 2022-06-18 12:23 | PCWOUND ---
CWON NOTE Patient called to cancel her appointment for 06/25/22. States she isn't sure when she can make it back in. When asked if everything is ok, patient stated yes but that she has a lot of Dr appointments right now. Instructed patient to call wound center when she's ready or needs to make an appointment.
== END 2022-08-18 08:20 | disposition home or self-care (01) ==
LOC: ANHWOC 07:20
PROVIDERS: PCP Family Medicine; Visit Provider Nurse Practitioner Family
DX: L97.919 Non-pressure chronic ulcer of unspecified part of right lower leg with unspecified severity (principal); L97.512 Non-pressure chronic ulcer of other part of right foot with fat layer exposed; E11.621 Type 2 diabetes mellitus with foot ulcer
CPT/HCPCS: 99212; 99213; G0463

== ENCOUNTER 2022-06-25 11:36 | Outpatient (CLI) | payer OTHER, SELFPAY ==
[2022-06-25 12:09] LABS: Basophils Percent Auto 0.2 % (0.2-1.2); Eosinophils Percent Auto 0.2 % (0-4.4); Hematocrit 37.5 % (37.0-47.0); Hemoglobin 12.2 g/dL (12.0-15.0); Immature Granulocyte Absolute 0.04 K/mm3 (0.00-0.031); Immature Granulocyte Percent A 0.4 % (0-0.5); Lymphocytes Absolute Auto 1.52 K/mm3 (0.9-3.2); Lymphocytes Percent Auto 15.9 % (18.3-44.2); Mean Corpuscular HGB Conc 32.5 g/dl (32-36); Mean Corpuscular Hemoglobin 29.9 pg (26-34); Mean Corpuscular Volume 91.9 fl (80-100); Mean Platelet Volume 10.6 fl (7.4-10.4); Monocytes Absolute Auto 0.5 K/mm3 (0.1-0.6); Monocytes Percent Auto 4.8 % (2.6-8.5); Neutrophils Absolute Auto 7.5 K/mm3 (1.3-6.7); Neutrophils Percent Auto 78.5 % (45.5-73.1); Platelet Count Result 280 k/mm3 (150-375); Red Blood Count 4.08 M/mm3 (4.2-5.4); Red Cell Distribution Width 13.9 % (11.5-14.5); White Blood Count 9.6 K/mm3 (4.5-10.0)
[2022-06-25 12:23] LABS: Lactic Acid 1.5 mmol/L (0.7-2.0)
[2022-06-25 12:31] LABS: Alanine Aminotransferase 11 U/L (6-35); Albumin Level 3.6 g/dL (3.5-5.1); Alkaline Phosphatase 146 U/L (38-126); Amylase 43 U/L (30-110); Anion Gap 8 mmol/L (8-16); Aspartate Amino Transferase 17 U/L (14-36); Bilirubin,Total 0.4 mg/dL (0.2-1.3); Blood Urea Nitrogen 10 mg/dL (7-17); Calcium 8.5 mg/dL (8.4-10.2); Carbon Dioxide 28 mmol/L (22-30); Chloride 89 mmol/L (98-107); Estimated Glomerular Filt Rate > 60; Glucose 340 mg/dL (65-110); Lipase 43 U/L (23-300); Potassium 3.7 mmol/L (3.4-5.0); Sodium 125 mmol/L (137-145)
[2022-06-25 12:32] LABS: D Dimer 0.79 ug/mL (<0.48)
[2022-06-25 12:38] LABS: Erythrocyte Sedimentation Rate 71 mm/hr (0-20)
[2022-06-25 12:48] LABS: CRP 18.4 mg/dL (<1.0)
== END 2022-06-25 11:37 | disposition home or self-care (01) ==
PROVIDERS: PCP Family Medicine; Visit Provider Nurse Practitioner Family
DX: R10.9 Unspecified abdominal pain (principal); R11.10 Vomiting, unspecified; M79.604 Pain in right leg; M79.89 Other specified soft tissue disorders
CPT/HCPCS: 36415; 80053; 82150; 83605; 83690; 85025; 85380; 85652; 86140

== ENCOUNTER 2022-06-25 13:20 | Outpatient (CLI) | payer OTHER, SELFPAY ==
--- NOTE | ~2022-06-25 | US_ITS ---
EXAMINATION: US venous doppler [facility] DATE: 06/25/2022 14:05 INDICATION: Bilateral lower limb pain TECHNIQUE: Falk scale images without and with compression and Doppler images of the bilateral lower e xtremity veins were obtained. COMPARISON: 07/29/2020 FINDINGS: The right common femoral vein, profunda femoral vein, femoral vein, popliteal vein, peroneal trunk, p osterior tibial veins, and greater saphenous vein are patent. Right inguinal lymphadenopathy is noted . The left common femoral vein, profunda femoral vein, femoral vein, popliteal vein, peroneal trunk, po sterior tibial veins, and greater saphenous vein are patent. A left Benson's cyst is noted. IMPRESSION: 1. Patent bilateral lower extremity veins. No evidence of deep venous thrombosis. 2. Right inguinal lymphadenopathy of unclear etiology. Reviewed, dictated and finalized at location A. IMPRESSION: 1. Patent bilateral lower extremity veins. No evidence of deep venous thrombosi s. 2. Right inguinal lymphadenopathy of unclear etiology.
== END 2022-06-25 13:21 | disposition home or self-care (01) ==
LOC: ANHIMG 13:21
PROVIDERS: PCP Family Medicine; Visit Provider Nurse Practitioner Family
DX: R79.89 Other specified abnormal findings of blood chemistry (principal); R59.0 Localized enlarged lymph nodes; M79.89 Other specified soft tissue disorders
CPT/HCPCS: 36415; 80053; 82150; 83605; 83690; 85025; 85380; 85652; 86140; 93970

== ENCOUNTER → 2022-06-26 14:04 | Outpatient (CLI) | payer OTHER, SELFPAY ==
--- NOTE | ~2022-06-26 | MR_ITS ---
EXAMINATION: MR foot RT wo/w con DATE: 06/26/2022 15:15 INDICATION: Possible bone infection at the right foot with chronic wound at the great toe TECHNIQUE: Magnetic resonance imaging (MRI) of the right fore/mid foot was performed without and with 18 mL Multihance intravenous contrast. Sequences included axial, sagittal and coronal T1-weighted FS E and fluid sensitive FSE STIR, axial T1-weighted FS FSE and postcontrast axial, sagittal and coronal T1-weighted FS FSE. A few of the sequences were repeated due to motion. COMPARISON: Right foot radiographs dated 05/26/2022 FINDINGS: There is destruction loss of normal T1 marrow signal involving essentially the entire first proximal and distal phalanges consistent with osteomyelitis. There is enhancement along the periphery of a sin us tract extending from the region of the nonenhancing necrotic bone to an ulceration at the skin manolo face at the medial side of the distal phalanx. This also appears to communicate with peripherally enh ancing fluid collection surrounding the head of the first metatarsal consistent with septic arthritis . There is mild likely reactive edema at the head of the first metatarsal but no definitive osteolysi s or loss of T1 fat signal to more specifically suggest osteitis of the first metatarsal. No other re gions suspicious for ostomy myelitis. Moderate polyarticular osteoarthritis at multiple joints in the midfoot likely related to Charcot joint. Severe osteoarthritis at the right ankle likely secondary t o prior trauma with magnetic field artifact such with a plate and screw fixation along the distal fib osmar. Diffuse fatty atrophy of the intrinsic musculature of the foot also likely related to chronic di abetic neuropathy. IMPRESSION: 1. 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 2. Fluid collection surrounding the head of the first metatarsal consistent with septic arthritis and appearing to communicate with a sinus tract extending through the necrotic portion of the bone to th e ulceration at the medial aspect of the distal phalanx. 2. Change of chronic diabetes including diffuse atrophy of the intrinsic musculature of the foot and Charcot joint in the midfoot and at the right ankle. Reviewed, dictated and finalized at location A. IMPRESSION: 1. 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 2. Fluid collection surrounding the head of the first metatarsal consistent wit h septic arthritis and appearing to communicate with a sinus tract extending th rough the necrotic portion of the bone to the ulceration at the medial aspect o f the distal phalanx. 2. Change of chronic diabetes including diffuse atrophy of the intrinsic muscul ature of the foot and Charcot joint in the midfoot and at the right ankle.
== END ==
PROVIDERS: PCP Family Medicine
DX: E11.621 Type 2 diabetes mellitus with foot ulcer (principal); M87.9 Osteonecrosis, unspecified; M19.071 Primary osteoarthritis, right ankle and foot; M79.89 Other specified soft tissue disorders
CPT/HCPCS: 73720; A9577

== ENCOUNTER 2022-10-07 13:47 | Outpatient (CLI) | payer OTHER, SELFPAY ==
[2022-10-07 14:31] LABS: Basophils Percent Auto 0.5 % (0.2-1.2); Eosinophils Absolute Auto 0.1 K/mm3 (0-0.3); Eosinophils Percent Auto 1.3 % (0-4.4); Hemoglobin 7.5 g/dL (12.0-15.0); Immature Granulocyte Absolute 0.01 K/mm3 (0.00-0.031); Immature Granulocyte Percent A 0.1 % (0-0.5); Lymphocytes Absolute Auto 3.17 K/mm3 (0.9-3.2); Lymphocytes Percent Auto 42.7 % (18.3-44.2); Mean Corpuscular HGB Conc 31.3 g/dl (32-36); Mean Corpuscular Hemoglobin 27.6 pg (26-34); Mean Corpuscular Volume 88.2 fl (80-100); Mean Platelet Volume 10.5 fl (7.4-10.4); Monocytes Absolute Auto 0.5 K/mm3 (0.1-0.6); Monocytes Percent Auto 6.1 % (2.6-8.5); Neutrophils Absolute Auto 3.7 K/mm3 (1.3-6.7); Neutrophils Percent Auto 49.3 % (45.5-73.1); Platelet Count Result 223 k/mm3 (150-375); Red Blood Count 2.72 M/mm3 (4.2-5.4); Red Cell Distribution Width 20.6 % (11.5-14.5); White Blood Count 7.4 K/mm3 (4.5-10.0)
[2022-10-07 14:42] LABS: Alanine Aminotransferase 21 U/L (6-35); Alkaline Phosphatase 128 U/L (38-126); Anion Gap 8 mmol/L (8-16); Aspartate Amino Transferase 20 U/L (14-36); Bilirubin,Total 0.3 mg/dL (0.2-1.3); Blood Urea Nitrogen 41 mg/dL (7-17); Calcium 8.2 mg/dL (8.4-10.2); Carbon Dioxide 14 mmol/L (22-30); Chloride 105 mmol/L (98-107); Estimated Glomerular Filt Rate 20; Glucose 128 mg/dL (65-110); Potassium 3.5 mmol/L (3.4-5.0); Sodium 127 mmol/L (137-145)
[2022-10-07 21:44] LABS: Hemoglobin A1C 4.8 % (<5.7)
== END 2022-10-07 13:48 | disposition home or self-care (01) ==
LOC: ANHLAB 13:48
PROVIDERS: PCP Family Medicine; Visit Provider Nurse Practitioner Family
DX: K52.9 Noninfective gastroenteritis and colitis, unspecified (principal); E78.5 Hyperlipidemia, unspecified; E11.65 Type 2 diabetes mellitus with hyperglycemia; Z79.4 Long term (current) use of insulin
CPT/HCPCS: 36415; 80053; 83036; 85025

== ENCOUNTER 2022-10-12 12:54 | Outpatient (CLI) | payer OTHER, SELFPAY ==
[2022-10-12 13:15] LABS: Basophils Percent Auto 0.5 % (0.2-1.2); Eosinophils Absolute Auto 0.1 K/mm3 (0-0.3); Eosinophils Percent Auto 0.9 % (0-4.4); Hemoglobin 7.5 g/dL (12.0-15.0); Immature Granulocyte Absolute 0.03 K/mm3 (0.00-0.031); Immature Granulocyte Percent A 0.4 % (0-0.5); Lymphocytes Percent Auto 31.5 % (18.3-44.2); Mean Corpuscular Hemoglobin 28.1 pg (26-34); Mean Corpuscular Volume 93.6 fl (80-100); Mean Platelet Volume 10.7 fl (7.4-10.4); Monocytes Absolute Auto 0.5 K/mm3 (0.1-0.6); Monocytes Percent Auto 5.8 % (2.6-8.5); Neutrophils Absolute Auto 5.2 K/mm3 (1.3-6.7); Neutrophils Percent Auto 60.9 % (45.5-73.1); Platelet Count Result 224 k/mm3 (150-375); Red Blood Count 2.67 M/mm3 (4.2-5.4); Red Cell Distribution Width 21.6 % (11.5-14.5); White Blood Count 8.6 K/mm3 (4.5-10.0)
[2022-10-12 13:25] LABS: Alanine Aminotransferase 20 U/L (6-35); Albumin Level 3.1 g/dL (3.5-5.1); Alkaline Phosphatase 90 U/L (38-126); Anion Gap 7 mmol/L (8-16); Aspartate Amino Transferase 19 U/L (14-36); Bilirubin,Total 0.2 mg/dL (0.2-1.3); Blood Urea Nitrogen 45 mg/dL (7-17); Calcium 8.6 mg/dL (8.4-10.2); Carbon Dioxide 15 mmol/L (22-30); Chloride 107 mmol/L (98-107); Estimated Glomerular Filt Rate 20; Glucose 142 mg/dL (65-110); Potassium 4.6 mmol/L (3.4-5.0); Sodium 129 mmol/L (137-145)
== END 2022-10-12 12:55 | disposition home or self-care (01) ==
PROVIDERS: PCP Family Medicine; Visit Provider Nurse Practitioner Family
DX: K52.9 Noninfective gastroenteritis and colitis, unspecified (principal)
CPT/HCPCS: 36415; 80053; 85025

== ENCOUNTER 2022-10-27 16:16 | Outpatient (CLI) | payer OTHER, SELFPAY ==
[2022-10-27 16:59] LABS: Albumin Level 3.1 g/dL (3.5-5.1); Anion Gap 10 mmol/L (8-16); Blood Urea Nitrogen 33 mg/dL (7-17); Calcium 8.4 mg/dL (8.4-10.2); Carbon Dioxide 18 mmol/L (22-30); Chloride 101 mmol/L (98-107); Creatine Kinase < 20 U/L (30-135); Estimated Glomerular Filt Rate 19; Glucose 166 mg/dL (65-110); Potassium 4.1 mmol/L (3.4-5.0); Sodium 129 mmol/L (137-145)
[2022-10-27 17:05] LABS: Creatinine Urine 42.6 mg/dL; Total Protein Urine Random 68 mg/dL
[2022-10-27 17:30] LABS: Eosinophil Urine None Seen % (None Seen)
[2022-10-27 17:44] LABS: Complement C3 147 mg/dL (88-165)
[2022-10-30 00:19] LABS: Albumin 2.2 g/dL (3.8-4.8); Alpha 1 Globulin 0.8 g/dL (0.2-0.3); Alpha 2 Globulin 0.9 g/dL (0.5-0.9); Beta 1 Globulin 0.4 g/dL (0.4-0.6); Protein, Total 5.8 g/dL (6.1-8.1)
[2022-10-30 11:03] LABS: Anti Glomerular Basement Memb <1.0 AI (<1.0)
[2022-10-31 02:45] LABS: Creatinine, Random Urine 39 mg/dL (20-275); Total Protein/Creatinine Ratio 2436 mg/g creat (24-184)
[2022-11-04 16:19] LABS: ANCA Screen Negative (Negative)
== END 2022-10-27 16:17 | disposition home or self-care (01) ==
LOC: ANHLAB 16:21
PROVIDERS: PCP Family Medicine; Visit Provider Internal Medicine Nephrology
DX: N17.9 Acute kidney failure, unspecified (principal)
CPT/HCPCS: 36415; 80069; 82550; 82570; 83520; 84155; 84156; 84165; 84166; 85999; 86036; 86038; 86160; 86225

== ENCOUNTER 2022-11-30 12:58 | Outpatient (CLI) | payer OTHER, SELFPAY ==
--- NOTE | ~2022-11-30 | US_ITS ---
EXAMINATION: US venous doppler [facility] DATE: 11/30/2022 13:27 INDICATION: Left lower limb localized edema. TECHNIQUE: Grayscale ultrasound images without and with compression and Doppler ultrasound images of the left lower extremity veins were obtained. COMPARISON: Ultrasound 06/25/2022 FINDINGS: The visualized portions of left common femoral vein, profunda (deep) femoral vein, femoral vein, popl iteal vein, peroneal veins, posterior tibial veins, and greater saphenous vein outflow are patent. Th ere is a large Benson's cyst. IMPRESSION: 1. No deep venous thrombosis. 2. Large Benson's cyst. Reviewed, dictated and finalized at location A. 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
== END 2022-11-30 12:59 | disposition home or self-care (01) ==
LOC: ANHIMG 12:59
PROVIDERS: PCP Family Medicine; Visit Provider Family Medicine
DX: R60.0 Localized edema (principal); M71.21 Synovial cyst of popliteal space [Baker], right knee
CPT/HCPCS: 93971

== ENCOUNTER 2022-12-18 10:25 | Outpatient (CLI) | payer OTHER, SELFPAY ==
[2022-12-18 11:07] LABS: Basophils Percent Auto 0.4 % (0.2-1.2); Eosinophils Absolute Auto 0.1 K/mm3 (0-0.3); Hematocrit 29.8 % (37.0-47.0); Hemoglobin 9.7 g/dL (12.0-15.0); Immature Granulocyte Absolute 0.02 K/mm3 (0.00-0.031); Immature Granulocyte Percent A 0.3 % (0-0.5); Lymphocytes Percent Auto 39.9 % (18.3-44.2); Mean Corpuscular HGB Conc 32.6 g/dl (32-36); Mean Corpuscular Volume 95.2 fl (80-100); Mean Platelet Volume 9.8 fl (7.4-10.4); Monocytes Absolute Auto 0.3 K/mm3 (0.1-0.6); Monocytes Percent Auto 3.6 % (2.6-8.5); Neutrophils Absolute Auto 4.3 K/mm3 (1.3-6.7); Neutrophils Percent Auto 54.8 % (45.5-73.1); Platelet Count Result 173 k/mm3 (150-375); Red Blood Count 3.13 M/mm3 (4.2-5.4); Red Cell Distribution Width 16.8 % (11.5-14.5); White Blood Count 7.8 K/mm3 (4.5-10.0)
[2022-12-18 11:38] LABS: Iron 133 ug/dL (37-170)
[2022-12-18 11:40] LABS: Anion Gap 10 mmol/L (8-16); Blood Urea Nitrogen 36 mg/dL (7-17); Calcium 8.9 mg/dL (8.4-10.2); Carbon Dioxide 16 mmol/L (22-30); Chloride 107 mmol/L (98-107); Estimated Glomerular Filt Rate 22; Glucose 188 mg/dL (65-110); Sodium 133 mmol/L (137-145)
[2022-12-18 12:01] LABS: Percent Iron Saturation 54 % (20-50); Vitamin D 25 Hydroxy 36.9 ng/mL
[2022-12-18 12:08] LABS: Erythrocyte Sedimentation Rate 71 mm/hr (0-20)
[2022-12-23 14:50] LABS: CRP, High Sensitivity 2.2 mg/L (***)
== END 2022-12-18 10:26 | disposition home or self-care (01) ==
PROVIDERS: Visit Provider Family Medicine
DX: N18.4 Chronic kidney disease, stage 4 (severe) (principal); E55.9 Vitamin D deficiency, unspecified; D64.9 Anemia, unspecified; M86.9 Osteomyelitis, unspecified
CPT/HCPCS: 36415; 80048; 82306; 82607; 83540; 83550; 85025; 85027; 85652; 86141

== ENCOUNTER → 2022-12-18 10:55 | Outpatient (CLI) | payer OTHER, SELFPAY ==
--- NOTE | ~2022-12-18 | US_ITS ---
Renal-Bladder ultrasound Clinical History: Acute renal failure Technique: Real-time sonographic imaging of the kidneys and urinary bladder was performed. Findings: The right kidney measures 10.7 cm in length and the left kidney measures 10.9 cm. There is no hydronephrosis or renal calculus identified. Renal cortical echogenicity is within normal limits. No renal mass lesion is identified. The urinary bladder is moderately distended at the time of this exam. No intraluminal echoes are iden tified. No abnormal wall thickening is seen. Impression: Unremarkable ultrasound of the kidneys and urinary bladder. Reviewed, dictated and finalized at location M. Impression: Unremarkable ultrasound of the kidneys and urinary bladder.
== END ==
PROVIDERS: PCP Family Medicine; Visit Provider Internal Medicine Nephrology
DX: N17.9 Acute kidney failure, unspecified (principal)
CPT/HCPCS: 76775

== ENCOUNTER 2023-01-04 07:14 | Outpatient (CLI) | payer OTHER, SELFPAY ==
[2022-12-29 11:21] VITALS: BMI 26.7
--- NOTE | 2022-12-29 11:21 | PC.NURSE ---
Pre Radiology instructions Report to the outpatient [facility] AT 0730 on date 01/04/23. Procedure Time: 0930. YOU MAY BE MONITORED AT HOSPITAL FOR UP TO 4 HOURS AFTER YOUR PROCEDURE. 1-2 visitors will be allowed to accompany the patient into the hospital. ?The visitor will be instructed to remain with patient at all times or MAY BE ASKED TO leave the building due to restrictions.? We will allow the visitor to come back to the postoperative area when patient is ready.? NO children visitors allowed at this time. You and your visitor will be asked to self-screen and do not enter if you have any COVID symptoms. A mask is OPTIONAL within the hospital. Patients are to have no food or drink 8 hours prior to procedure time PER RADIOLOGY INSTRUCTIONS Driving will be restricted after the procedure, you must have a person to drive you home. Labs will be drawn in preop area and once reviewed, you will be taken to radiology area for procedure. When the procedure is completed, you will be taken to outpatient where you will be monitored for several hours. You may have one visitor in this area. Other than holding anti-coagulants, patient may take other medication(s) as scheduled. Prior to your appointment date patients are instructed to hold anti-coagulants after discussing with ordering provider to stop. If unable to discontinue anti-coagulants please notify radiologist. ? No aspirin or warfarin (Coumadin) for 7 days prior to the procedure. ? No clopidogrel (Plavix), ticagrelor (Brilinta), prasugrel (Effient) or dabigatran (Pradaxa) for 5 days prior to the procedure. ? No rivaroxaban (Xarelto), apixaban (Eliquis), dipyridamole (Aggrenox or Persantine) or cilostazol (Pletal) for 2 days prior to the procedure. Medications to discontinue per physician: N/A Date to take last dose: N/A Please leave all valuables, including medications, at home the day of procedure. The hospital will not accept responsibility for valuables. Wear comfortable, loose fitting clothing.? Follow any additional instructions given to you from ordering provider. Telephone instructions given to PT - NARGIS HERNANEDZ and asked if any additional questions and then verbalized understanding. Patient advised to call scheduling provider office or registration scheduling [phone] if any additional questions.
[2023-01-04] VITALS (12 sets, daily range): BP systolic 110–129; BP diastolic 40–71; PULSE 81–88; RESP 14–16; TEMP 36.8; O2SAT 96–100
--- NOTE | ~2023-01-04 | US_ITS ---
EXAMINATION: US biopsy renal DATE: 01/04/2023 09:57 INDICATION: Acute kidney failure, unspecified. TECHNIQUE: The procedure including the risks, benefits, and alternatives was discussed with the patie nt. Risks discussed included bleeding and infection. The patient understood the risks and agreed to p roceed. A timeout was performed to verify the patient's name, date of , and procedure to be p erformed. The skin overlying the left kidney was prepped and draped in usual sterile fashion. Anest hetic was administered with 1% lidocaine subcutaneously. An 18 gauge core biopsy needle was then use d to obtain 4 core biopsy specimens under continuous sonographic guidance. The entry site was cleaned and dressed. There were no immediate complications. FINDINGS: Ultrasound images demonstrate the needle in the kidney. IMPRESSION: 1. Ultrasound-guided random left kidney core needle biopsy. Reviewed, dictated and finalized at location A.
[2023-01-04 08:19] LABS: Mean Platelet Volume 10.5 fl (7.4-10.4); Platelet Count Result 142 k/mm3 (150-375)
[2023-01-04 08:32] LABS: INR 1.2; Prothrombin Time 14.9 Seconds (11.1-14.7)
== END 2023-01-04 14:11 | disposition home or self-care (01) ==
PROVIDERS: PCP Family Medicine; Referring Provider Internal Medicine Nephrology; Visit Provider Radiology Diagnostic Radiology
PROC: (CPT 76942; principal; 2023-01-04 09:30)
DX: N17.9 Acute kidney failure, unspecified (principal); N18.9 Chronic kidney disease, unspecified
CPT/HCPCS: 36415; 50200; 76942; 85049; 85610; 88300; 88305; 88313; 88329; 88346; 88348; 88350

== ENCOUNTER 2023-02-04 10:52 | Outpatient (CLI) | payer OTHER, SELFPAY ==
[2023-02-04 11:45] LABS: Basophils Percent Auto 0.3 % (0.2-1.2); Eosinophils Absolute Auto 0.1 K/mm3 (0-0.3); Hematocrit 31.3 % (37.0-47.0); Hemoglobin 9.9 g/dL (12.0-15.0); Immature Granulocyte Absolute 0.04 K/mm3 (0.00-0.031); Immature Granulocyte Percent A 0.3 % (0-0.5); Lymphocytes Absolute Auto 2.58 K/mm3 (0.9-3.2); Lymphocytes Percent Auto 21.5 % (18.3-44.2); Mean Corpuscular HGB Conc 31.6 g/dl (32-36); Mean Corpuscular Volume 101.3 fl (80-100); Mean Platelet Volume 10.5 fl (7.4-10.4); Monocytes Absolute Auto 0.4 K/mm3 (0.1-0.6); Monocytes Percent Auto 3.7 % (2.6-8.5); Neutrophils Absolute Auto 8.8 K/mm3 (1.3-6.7); Neutrophils Percent Auto 73.2 % (45.5-73.1); Platelet Count Result 211 k/mm3 (150-375); Red Blood Count 3.09 M/mm3 (4.2-5.4); Red Cell Distribution Width 15.8 % (11.5-14.5)
[2023-02-04 11:53] LABS: Albumin Level 3.5 g/dL (3.5-5.1); Anion Gap 10 mmol/L (8-16); Blood Urea Nitrogen 36 mg/dL (7-17); Calcium 8.7 mg/dL (8.4-10.2); Carbon Dioxide 16 mmol/L (22-30); Chloride 112 mmol/L (98-107); Estimated Glomerular Filt Rate 26; Glucose 128 mg/dL (65-110); Phosphorus 5.1 mg/dL (2.5-4.5); Sodium 138 mmol/L (137-145)
[2023-02-04 12:02] LABS: Creatinine Urine 31.8 mg/dL; Total Protein Urine Random 40 mg/dL; Ur Ttl Prot Creatinine Ratio 1.26 mg/mg (0-0.20)
[2023-02-04 12:05] LABS: Parathyroid Intact 41.4 pg/mL (7.5-53.5)
[2023-02-04 12:30] LABS: Vitamin D 25 Hydroxy 39.2 ng/mL
== END 2023-02-04 10:53 | disposition home or self-care (01) ==
LOC: ANHLAB 10:54
PROVIDERS: Internal Medicine Nephrology; Nurse Practitioner Family; PCP Family Medicine; Visit Provider Family Medicine
DX: E11.628 Type 2 diabetes mellitus with other skin complications (principal); L08.9 Local infection of the skin and subcutaneous tissue, unspecified; D64.9 Anemia, unspecified; E11.22 Type 2 diabetes mellitus with diabetic chronic kidney disease; N18.4 Chronic kidney disease, stage 4 (severe); I12.9 Hypertensive chronic kidney disease with stage 1 through stage 4 chronic kidney disease, or unspecified chronic kidney disease
CPT/HCPCS: 36415; 80069; 82306; 82570; 83970; 84156; 85025

== ENCOUNTER 2023-02-05 02:28 | Day surgery (SDC) | payer OTHER, SELFPAY ==
[2023-01-26 12:48] VITALS: BMI 26.8
[2023-02-05 11:21] VITALS: BP 114/68; PULSE 84; RESP 20; TEMP 36.4; O2SAT 99
[2023-02-05 11:22] VITALS: BMI 31.7
--- NOTE | 2023-02-05 11:22 | WPDANESEPPF ---
Anes - Initial Pre Proc Eval Procedure: Operation Date: 02/05/23 13:00 Proposed Procedures p Esophagogastroduodenoscopy - Delmer Kamara MD Date/Time: 02/05/23 11:22 Surgeon: Delmer Kamara MD Pre Op Diagnosis: N & V Patient Data Age: 58 Gender: F Height: 1.73 m Weight: 80 kg Allergies Allergy/AdvReac Type Severity Reaction Status Date / Time ceftriaxone Allergy Severe Rash Verified 02/05/23 11:19 povidone-iodine Allergy Intermediate rash Verified 02/05/23 11:19 soap [From Betadine] Allergy Intermediate Rash Verified 02/05/23 11:19 Home Medications Medication Instructions Recorded Confirmed Type trazodone 150 mg tablet 150 mg PO HS PRN Insomnia 11/04/19 01/26/23 History insulin lispro 200 unit/mL (3 mL) 10 unit subcut TIDWMEAL 90 days 02/26/22 01/26/23 Rx subcutaneous pen #13.5 mL gabapentin 300 mg capsule See Rx Instructions PO TID 04/10/22 01/26/23 History bupropion HCl 450 mg 24 hr tablet, 450 mg PO DAILY #90 tabs 10/07/22 01/26/23 Rx extended release amlodipine 10 mg tablet 10 mg PO DAILY 11/30/22 01/26/23 History hydralazine 25 mg tablet 25 mg PO TID 11/30/22 01/26/23 History brexpiprazole 4 mg tablet (Rexulti) 4 mg PO DAILY 12/22/22 01/26/23 History duloxetine 30 mg capsule,delayed 30 mg PO DAILY 12/22/22 01/26/23 History release blood-glucose meter,continuous #1 ea 01/14/23 01/14/23 Rx (Dexcom G7 Senior Network Engineer) blood-glucose sensor (Dexcom G7 #9 ea 01/14/23 01/14/23 Rx Sensor device) glucagon 1 mg/0.2 mL subcutaneous 1 mg (0.2 mL) subcut ONCE #0.4 mL 01/14/23 01/26/23 Rx auto-injector (Gvoke HypoPen 2-Pack) insulin degludec 200 unit/mL (3 65 unit (0.325 mL) subcut QHS 90 01/14/23 01/26/23 Rx mL) subcutaneous pen (Tresiba days #21 mL FlexTouch U-200 insulin) pantoprazole 40 mg tablet,delayed 40 mg PO QAM 01/14/23 01/26/23 History release promethazine 25 mg tablet 25 mg PO TID PRN nausea and 01/14/23 01/26/23 Rx vomiting #90 tabs Patient hx anesthesia problems: none Family hx anesthesia problems: none Results Review: All pre-operative results and documents have been reviewed as part of the pre-operative evaluation. [facility] Past Medical History Medical History (Updated 01/14/23 @ 12:35 by Delmer Kamara MD) Abdominal adhesions Abdominal distention Abnormal colonoscopy Adult BMI 26.0-26.9 kg/sq m Adult BMI 31.0-31.9 kg/sq m Allergies Anemia Atelectasis of both lungs Bipolar disorder C. difficile diarrhea Carpal tunnel syndrome of left wrist Chronic back pain Chronic obstructive pulmonary disease Daytime hypersomnolence Depression with anxiety Diabetic foot infection Diabetic neuropathy Dyspnea on exertion Dysthymia Essential hypertension Essential hypertension Fibromyalgia Fracture Right ankle with chronic deformity. Gall bladder disease Gastroesophageal reflux disease Hammertoes of both feet Hematochezia History of blood transfusion Hyperlipidemia Hypovitaminosis D ILD (interstitial lung disease) Inflammatory arthritis Irritable bowel syndrome with constipation and diarrhea Lactic acidemia Leg edema, left Lymphedema MDD (major depressive disorder), recurrent episode, with atypical features Microalbuminuria due to type 2 diabetes mellitus Microscopic colitis Mixed hyperlipidemia Myalgia Nausea and vomiting in adult Obese Obstructive sleep apnea Onychogryphosis Osteoarthritis Other screening mammogram Overweight with body mass index (BMI) of 28 to 28.9 in adult Peripheral polyneuropathy Pes cavus Pneumonia Post-menopausal Proteinuria, unspecified Psychophysiological insomnia PTSD (post-traumatic stress disorder) Pulmonary nodule Rash and nonspecific skin eruption 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
[2023-02-05] MEDS: LACTATED RINGERS 1,000 ML 150 ML IV CONT (11:30)
[2023-02-05 11:37] LABS: Glucose Point of Care 107 mg/dl (65-105)
--- NOTE | 2023-02-05 12:24 | WPDHPUPDATE1 ---
History and Physical Update Update Date/Time: 02/05/23 12:24 History and Physical has been reviewed, including an updated exam of the patient. There are NO changes in the patient's condition. Risks, benefits, and alternatives have been discussed and questions answered. Patient agrees to proceed with procedure.
[2023-02-05 12:37] VITALS: BP 111/65; PULSE 72; RESP 28; O2SAT 99
[2023-02-05 12:47] VITALS: BP 124/68; PULSE 70; RESP 22; O2SAT 99
[2023-02-05 12:57] VITALS: BP 128/75; PULSE 68; RESP 22; O2SAT 99
--- NOTE | 2023-02-05 13:33 | SUR.PHASEII ---
Pt discharge delay due to waiting for home delivery driver to arrive.
--- NOTE | 2023-02-05 14:54 | SUR.PHASEII ---
Pt blood sugar was 107 per Dexcom glucose reader.
== END 2023-02-05 13:20 | disposition home or self-care (01) ==
PROVIDERS: PCP Family Medicine; Visit Provider Internal Medicine Gastroenterology
PROC: 0DJ08ZZ Inspection of Upper Intestinal Tract, Via Natural or Artificial Opening Endoscopic (ICD-10-PCS; CPT 43235; principal; 2023-02-05 13:00)
DX: R11.0 Nausea (principal); K21.9 Gastro-esophageal reflux disease without esophagitis; E11.40 Type 2 diabetes mellitus with diabetic neuropathy, unspecified; I12.9 Hypertensive chronic kidney disease with stage 1 through stage 4 chronic kidney disease, or unspecified chronic kidney disease; E11.22 Type 2 diabetes mellitus with diabetic chronic kidney disease; N18.4 Chronic kidney disease, stage 4 (severe); J44.9 Chronic obstructive pulmonary disease, unspecified; F41.8 Other specified anxiety disorders; M79.7 Fibromyalgia; F31.9 Bipolar disorder, unspecified; E78.5 Hyperlipidemia, unspecified; J84.9 Interstitial pulmonary disease, unspecified; K58.2 Mixed irritable bowel syndrome; G47.33 Obstructive sleep apnea (adult) (pediatric); F17.210 Nicotine dependence, cigarettes, uncomplicated; Z79.4 Long term (current) use of insulin
CPT/HCPCS: 43239; 82948; 87493; 88305; J2704; J7120

== ENCOUNTER 2023-02-05 10:43 | Outpatient (CLI) | payer OTHER, SELFPAY ==
[2023-02-06 09:50] LABS: Toxigenic C. Diff POSITIVE (NEGATIVE)
== END 2023-02-05 10:44 | disposition home or self-care (01) ==
LOC: ANHLAB 10:45
PROVIDERS: PCP Family Medicine; Visit Provider Nurse Practitioner Family
DX: A49.8 Other bacterial infections of unspecified site (principal); R19.7 Diarrhea, unspecified
CPT/HCPCS: 87493

== ENCOUNTER 2023-03-11 07:20 | Outpatient (CLI) | payer OTHER, SELFPAY ==
--- NOTE | ~2023-03-11 | NM_ITS ---
EXAM: NM gastric emptying study DATE: 03/11/2023 16:31 CDT INDICATION: Nausea with vomiting TECHNIQUE: A gastric emptying study was performed using the methodology of Dhara BABIN, et al. J Nucl Med 2007; 48:568-572. The patient was given a meal consisting of 2 scrambled eggs labeled with 1 mCi Tc-99m sulfur colloid, 2 slices of toast, two packages of jam, and approximately 120 mL of water. Si multaneous anterior and posterior 1-min images of the abdomen were obtained with the patient supine a t multiple time points over a total period of 4 hours. The geometric mean of anterior and posterior v iews was determined, and the percentage retention was calculated for each time point. COMPARISON: No prior studies for comparison. . FINDINGS: Gastric retention of the radiotracer-labeled meal was 59%, 33%, and 12% at the 1-hour, 2-h our, and 4-hour time points, respectively. With this technique, apparent rapid gastric emptying is wilks ggested by <30% gastric retention at 1 hour. Delayed gastric emptying is defined by gastric retention of >90% at 1 hour, >60% retention at 2 hours, or >10% retention at 4 hours. IMPRESSION: 1. Delayed gastric emptying. Reviewed, dictated and finalized at location L.
== END 2023-03-11 07:21 | disposition home or self-care (01) ==
LOC: ANHIMG 07:26
PROVIDERS: PCP Family Medicine; Visit Provider Internal Medicine Gastroenterology
DX: R11.2 Nausea with vomiting, unspecified (principal); K30 Functional dyspepsia
CPT/HCPCS: 78264; A9541

== ENCOUNTER 2023-03-17 16:13 | Outpatient (NON) | payer OTHER, SELFPAY ==
[2023-03-17 22:38] LABS: Toxigenic C. Diff POSITIVE (NEGATIVE)
== END 2023-03-17 16:14 | disposition home or self-care (01) ==
LOC: ANHLAB 16:14
PROVIDERS: PCP Family Medicine; Visit Provider Nurse Practitioner
DX: R19.7 Diarrhea, unspecified (principal)
CPT/HCPCS: 87493

== ENCOUNTER 2023-04-23 15:07 | Outpatient (CLI) | payer OTHER, SELFPAY ==
[2023-04-23 16:16] LABS: Creatinine Urine 27.4 mg/dL; Total Protein Urine Random 38 mg/dL; Ur Ttl Prot Creatinine Ratio 1.39 mg/mg (0-0.20)
[2023-04-23 16:50] LABS: Vitamin D 25 Hydroxy 23.1 ng/mL
== END 2023-04-23 15:08 | disposition home or self-care (01) ==
LOC: ANHLAB 15:09
PROVIDERS: PCP Family Medicine; Visit Provider Internal Medicine Nephrology
DX: I12.9 Hypertensive chronic kidney disease with stage 1 through stage 4 chronic kidney disease, or unspecified chronic kidney disease (principal); N18.4 Chronic kidney disease, stage 4 (severe); E11.22 Type 2 diabetes mellitus with diabetic chronic kidney disease
CPT/HCPCS: 36415; 82306; 82570; 84156

== ENCOUNTER 2023-05-06 11:48 | Outpatient (CLI) | payer OTHER, SELFPAY ==
[2023-05-06 12:13] LABS: Basophils Percent Auto 0.4 % (0.2-1.2); Eosinophils Absolute Auto 0.2 K/mm3 (0-0.3); Eosinophils Percent Auto 2.2 % (0-4.4); Hemoglobin 9.4 g/dL (12.0-15.0); Immature Granulocyte Absolute 0.03 K/mm3 (0.00-0.031); Immature Granulocyte Percent A 0.4 % (0-0.5); Lymphocytes Absolute Auto 1.92 K/mm3 (0.9-3.2); Lymphocytes Percent Auto 22.5 % (18.3-44.2); Mean Corpuscular HGB Conc 31.3 g/dl (32-36); Mean Corpuscular Hemoglobin 32.5 pg (26-34); Mean Corpuscular Volume 103.8 fl (80-100); Mean Platelet Volume 10.2 fl (7.4-10.4); Monocytes Absolute Auto 0.5 K/mm3 (0.1-0.6); Monocytes Percent Auto 5.4 % (2.6-8.5); Neutrophils Absolute Auto 5.9 K/mm3 (1.3-6.7); Neutrophils Percent Auto 69.1 % (45.5-73.1); Platelet Count Result 183 k/mm3 (150-375); Red Blood Count 2.89 M/mm3 (4.2-5.4); Red Cell Distribution Width 14.6 % (11.5-14.5); White Blood Count 8.5 K/mm3 (4.5-10.0)
[2023-05-06 12:30] LABS: Alanine Aminotransferase 37 U/L (6-35); Albumin Level 3.9 g/dL (3.5-5.1); Alkaline Phosphatase 169 U/L (38-126); Anion Gap 12 mmol/L (8-16); Aspartate Amino Transferase 33 U/L (14-36); Bilirubin,Total 0.2 mg/dL (0.2-1.3); Blood Urea Nitrogen 50 mg/dL (7-17); CRP 0.8 mg/dL (<1.0); Calcium 8.6 mg/dL (8.4-10.2); Carbon Dioxide 17 mmol/L (22-30); Chloride 109 mmol/L (98-107); Estimated Glomerular Filt Rate 22; Glucose 201 mg/dL (65-110); Potassium 4.1 mmol/L (3.4-5.0); Sodium 138 mmol/L (137-145)
[2023-05-06 12:48] LABS: Erythrocyte Sedimentation Rate 51 mm/hr (0-20)
== END 2023-05-06 11:49 | disposition home or self-care (01) ==
PROVIDERS: PCP Family Medicine; Referring Provider Internal Medicine Endocrinology, Diabetes & Metabolism; Visit Provider Nurse Practitioner Family
DX: M25.50 Pain in unspecified joint (principal); E11.22 Type 2 diabetes mellitus with diabetic chronic kidney disease; D72.829 Elevated white blood cell count, unspecified
CPT/HCPCS: 36415; 80053; 85025; 85652; 86038; 86140

== ENCOUNTER 2023-05-20 16:05 | Outpatient (CLI) | payer OTHER, SELFPAY ==
[2023-05-20 17:03] LABS: HDL Direct 35 mg/dL
[2023-05-20 17:13] LABS: LDL Cholesterol Direct 36 mg/dL
== END 2023-05-20 16:06 | disposition home or self-care (01) ==
LOC: ANHLAB 16:08
PROVIDERS: PCP Family Medicine; Visit Provider Internal Medicine Endocrinology, Diabetes & Metabolism
DX: E11.65 Type 2 diabetes mellitus with hyperglycemia (principal); Z79.4 Long term (current) use of insulin
CPT/HCPCS: 36415; 83718; 83721

== ENCOUNTER 2023-05-21 12:35 | Outpatient (NON) | payer OTHER, SELFPAY ==
[2023-05-22 00:30] LABS: Toxigenic C. Diff POSITIVE (NEGATIVE)
== END 2023-05-21 12:36 | disposition home or self-care (01) ==
LOC: ANHLAB 12:36
PROVIDERS: PCP Family Medicine; Visit Provider Nurse Practitioner Family
DX: A49.8 Other bacterial infections of unspecified site (principal)
CPT/HCPCS: 87493

== ENCOUNTER 2023-08-10 15:56 | Outpatient (CLI) | payer OTHER, SELFPAY ==
[2023-08-10 16:29] LABS: Albumin Level 3.6 g/dL (3.5-5.1); Anion Gap 9 mmol/L (8-16); Blood Urea Nitrogen 38 mg/dL (7-17); Calcium 8.6 mg/dL (8.4-10.2); Carbon Dioxide 20 mmol/L (22-30); Chloride 107 mmol/L (98-107); Estimated Glomerular Filt Rate 23; Glucose 143 mg/dL (65-110); Phosphorus 4.3 mg/dL (2.5-4.5); Potassium 4.4 mmol/L (3.4-5.0); Sodium 136 mmol/L (137-145)
[2023-08-10 16:31] LABS: Creatinine Urine 17.9 mg/dL; Total Protein Urine Random 22 mg/dL; Ur Ttl Prot Creatinine Ratio 1.23 mg/mg (0-0.20)
== END 2023-08-10 15:57 | disposition home or self-care (01) ==
PROVIDERS: PCP Family Medicine; Visit Provider Internal Medicine Nephrology
DX: E11.22 Type 2 diabetes mellitus with diabetic chronic kidney disease (principal); I12.9 Hypertensive chronic kidney disease with stage 1 through stage 4 chronic kidney disease, or unspecified chronic kidney disease; N18.4 Chronic kidney disease, stage 4 (severe)
CPT/HCPCS: 36415; 80069; 82570; 84156

== ENCOUNTER 2023-09-09 16:00 | Outpatient (CLI) | payer OTHER, SELFPAY ==
--- NOTE | ~2023-09-09 | XR_ITS ---
EXAMINATION: XR hand LT min 3V DATE: 09/09/2023 16:17 INDICATION: Left hand pain. TECHNIQUE: 3 views of left hand were obtained. COMPARISON: Left hand radiographs 05/26/2022 FINDINGS: Bone alignment is normal. No fracture. There is mild osteoarthritis of first carpometacarpa l joint, first and second metacarpophalangeal joints, and some of the interphalangeal joints. IMPRESSION: 1. Mild polyarticular osteoarthritis. Reviewed, dictated and finalized at location A. 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
--- NOTE | ~2023-09-09 | XR_ITS ---
EXAMINATION: XR hand RT min 3V DATE: 09/09/2023 16:17 INDICATION: Right hand pain. TECHNIQUE: 3 views of right hand were obtained. COMPARISON: Right hand radiographs 05/26/2022 FINDINGS: Bone alignment is normal. No fracture. There is mild osteoarthritis of first carpometacarpa l joint, first and second metacarpophalangeal joints, and most of the interphalangeal joints. IMPRESSION: 1. Mild polyarticular osteoarthritis. Reviewed, dictated and finalized at location A. [employer]
== END 2023-09-09 16:01 | disposition home or self-care (01) ==
PROVIDERS: PCP Family Medicine; Visit Provider Nurse Practitioner Family
DX: M19.041 Primary osteoarthritis, right hand (principal); M19.042 Primary osteoarthritis, left hand
CPT/HCPCS: 73130

== ENCOUNTER 2023-09-22 12:52 | Outpatient (RCR) | payer OTHER, SELFPAY ==
[2023-09-22 13:20] VITALS: BMI 28.2
== END 2023-12-06 09:10 | disposition home or self-care (01) ==
LOC: ANHWOC 12:52
PROVIDERS: PCP Family Medicine; Visit Provider Nurse Practitioner Family
DX: S81.809D Unspecified open wound, unspecified lower leg, subsequent encounter (principal)
CPT/HCPCS: 99213; A9270; G0463

== ENCOUNTER 2023-12-02 14:52 | Outpatient (CLI) | payer OTHER, SELFPAY ==
[2023-12-02 15:50] LABS: Creatinine Urine 17.4 mg/dL; Total Protein Urine Random 36 mg/dL; Ur Ttl Prot Creatinine Ratio 2.07 mg/mg (0-0.20)
[2023-12-02 17:03] LABS: Parathyroid Intact 119.3 pg/mL (7.5-53.5)
[2023-12-02 17:15] LABS: Albumin Level 4.2 g/dL (3.5-5.1); Anion Gap 13 mmol/L (8-16); Blood Urea Nitrogen 57 mg/dL (7-17); Calcium 9.3 mg/dL (8.4-10.2); Carbon Dioxide 15 mmol/L (22-30); Chloride 108 mmol/L (98-107); Estimated Glomerular Filt Rate 18; Glucose 100 mg/dL (65-110); Potassium 3.4 mmol/L (3.4-5.0); Sodium 136 mmol/L (137-145)
== END 2023-12-02 14:53 | disposition home or self-care (01) ==
LOC: ANHLAB 14:54
PROVIDERS: PCP Family Medicine; Visit Provider Internal Medicine Nephrology
DX: E11.22 Type 2 diabetes mellitus with diabetic chronic kidney disease (principal); E55.9 Vitamin D deficiency, unspecified; I12.9 Hypertensive chronic kidney disease with stage 1 through stage 4 chronic kidney disease, or unspecified chronic kidney disease; N18.4 Chronic kidney disease, stage 4 (severe); N25.81 Secondary hyperparathyroidism of renal origin
CPT/HCPCS: 36415; 80069; 82306; 82570; 83970; 84156

== ENCOUNTER 2024-02-08 10:32 | Outpatient (CLI) | payer OTHER, SELFPAY ==
--- NOTE | 2024-02-08 11:15 | NEURO_ITS ---
Impression: # Known diabetic complains of increasing numbness of hands. # Bilateral Carpal Tunnel Syndrome. # Left severe ulnar neuropathy around the elbow. # Ulnar to median cross innervation noted. # Abnormal needle/EMG exam. Nerve Conduction Studies Anti Sensory Summary Table Stim Site NR Peak (ms) P-T Amp (?V) Site1 Site2 Delta-P (ms) Dist (cm) Oleg (m/s) Left Median Anti Sensory (2-3nd Digit) Wrist 4.1 5.2 Wrist 2-3nd Digit 4.1 14.0 34 Wrist 4.8 17.0 Wrist 2-3nd Digit 4.1 14.0 34 Right Median Anti Sensory (2-3nd Digit) Wrist 4.6 16.9 Wrist 2-3nd Digit 4.6 14.0 30 Wrist 4.9 12.8 Wrist 2-3nd Digit 4.6 14.0 30 Left Radial Anti Sensory (Base 1st Digit) Wrist 2.7 65.6 Wrist Base 1st Digit 2.7 0.0 Right Radial Anti Sensory (Base 1st Digit) Wrist 2.4 23.1 Wrist Base 1st Digit 2.4 0.0 Left Ulnar Anti Sensory (5th Digit) Wrist 2.9 27.2 Wrist 5th Digit 2.9 14.0 48 Right Ulnar Anti Sensory (5th Digit) Wrist 2.8 11.5 Wrist 5th Digit 2.8 14.0 50 Motor Summary Table Stim Site NR Onset (ms) O-P Amp (mV) Site1 Site2 Delta-0 (ms) Dist (cm) Oleg (m/s) Left Median Motor (Abd Poll Brev) Wrist 4.6 3.6 Elbow Wrist 5.4 29.0 54 Elbow 10.0 4.7 Right Median Motor (Abd Poll Brev) Wrist 4.0 3.0 Elbow Wrist 5.6 29.0 52 Elbow 9.6 5.3 Left Ulnar Motor (Abd Dig Minimi) Wrist 3.0 3.0 A Elbow Wrist 9.9 32.0 32 A Elbow 12.9 0.7 B Elbow Wrist 7.1 24.0 34 B Elbow 10.1 0.2 Right Ulnar Motor (Abd Dig Minimi) Wrist 3.0 3.9 A Elbow Wrist 6.0 32.0 53 A Elbow 9.0 1.7 F Wave Studies NR F-Lat (ms) L-R F-Lat (ms) Left Median (Mrkrs) (Abd Poll Brev) 32.53 0.06 Right Median (Mrkrs) (Abd Poll Brev) 32.48 0.06 Left Ulnar (Mrkrs) (Abd Dig Min) 30.92 1.29 Right Ulnar (Mrkrs) (Abd Dig Min) 32.20 1.29 EMG Side Muscle Nerve Root Ins Act Fibs Amp Dur Recrt Comment Right 1stDorInt Ulnar C8-T1 Nml Nml Nml Nml Nml Right Ext Indicis Radial (Post Int) C7-8 Nml Nml Nml Nml Nml Right Ext Digitorum Radial (Post Int) C7-8 Nml Nml Nml Nml Nml Right BrachioRad Radial C5-6 Nml Nml Nml Nml Nml Right PronatorTeres Median C6-7 Nml Nml Nml Nml Nml Right Abd Poll Brev Median C8-T1 Nml Nml Nml Nml Nml Right ABD Dig Min Ulnar C8-T1 Nml Nml Nml Nml Nml Left 1stDorInt Ulnar C8-T1 Nml Nml Decr >12ms +2 Left Ext Indicis Radial (Post Int) C7-8 Nml Nml Nml Nml Nml Left Ext Digitorum Radial (Post Int) C7-8 Nml Nml Nml Nml Nml Left BrachioRad Radial C5-6 Nml Nml Nml Nml Nml Left PronatorTeres Median C6-7 Nml Nml Incr >12ms Nml Left Abd Poll Brev Median C8-T1 Nml Nml Nml Nml +1 Left ABD Dig Min Ulnar C8-T1 Nml Nml Decr >12ms +3 MTDD
== END 2024-02-08 10:33 | disposition home or self-care (01) ==
LOC: ANHNEURO 10:32
PROVIDERS: PCP Family Medicine; Visit Provider Plastic Surgery
DX: G56.03 Carpal tunnel syndrome, bilateral upper limbs (principal); G56.22 Lesion of ulnar nerve, left upper limb
CPT/HCPCS: 95886; 95911

== ENCOUNTER 2024-03-03 11:13 | Outpatient (CLI) | payer OTHER, SELFPAY ==
[2024-03-03 11:52] LABS: Appearance Urine Cloudy (Clear); Bacteria Urine 4+ /hpf; Bilirubin Urine Negative (Negative); Blood Urine Negative (Negative); Color Urine Yellow (Yellow); Glucose Urine UA Negative (Negative); Ketones Urine Negative (Negative); Leukocyte Esterase Ur 3+ LEU/UL (Negative); Nitrate Urine Positive (Negative); Non Pathogenic Casts 0-2; Protein Urine Trace mg/dL (Negative); RBC Urine 0-2 /hpf (0-2); Specific Grav Ur 1.005 (1.001-1.035); Squamous Epithelial Cell Urine None Seen /hpf (Few); Urobilinogen Urine 0.2 mg/dL (<2.0); WBC Urine >100 /hpf (0-3); pH Urine 5.5 (5.0-9.0)
[2024-03-03 11:54] LABS: Add Urine Microscopic? YES
== END 2024-03-03 11:14 | disposition home or self-care (01) ==
LOC: ANHLAB 11:14
PROVIDERS: PCP Family Medicine; Visit Provider Family Medicine
DX: N39.0 Urinary tract infection, site not specified (principal); B96.29 Other Escherichia coli [E. coli] as the cause of diseases classified elsewhere; Z16.12 Extended spectrum beta lactamase (ESBL) resistance
CPT/HCPCS: 81001; 87077; 87086; 87088; 87147; 87186

== ENCOUNTER 2024-03-07 08:01 | Outpatient (CLI) | payer OTHER, SELFPAY ==
[2024-03-07 08:15] VITALS: BP 139/77; PULSE 70; RESP 16; TEMP 36.3; O2SAT 100
== END 2024-03-07 08:02 | disposition home or self-care (01) ==
LOC: ANHVASCINF 08:02
PROVIDERS: PCP Family Medicine; Visit Provider Family Medicine
DX: E56.1 Deficiency of vitamin K (principal); N18.9 Chronic kidney disease, unspecified
CPT/HCPCS: 36569; 96365; 99202; A9270; C1751; G0463; J0743

== ENCOUNTER 2024-03-24 13:38 | Outpatient (CLI) | payer OTHER, SELFPAY ==
[2024-03-24 14:14] LABS: Basophils Absolute Auto 0.1 K/mm3 (0.0-0.1); Basophils Percent Auto 0.3 % (0.2-1.2); Eosinophils Absolute Auto 0.2 K/mm3 (0-0.3); Eosinophils Percent Auto 0.9 % (0-4.4); Hematocrit 35.8 % (37.0-47.0); Hemoglobin 11.7 g/dL (12.0-15.0); Immature Granulocyte Absolute 0.11 K/mm3 (0.00-0.031); Immature Granulocyte Percent A 0.6 % (0-0.5); Lymphocytes Absolute Auto 2.82 K/mm3 (0.9-3.2); Lymphocytes Percent Auto 14.7 % (18.3-44.2); Mean Corpuscular HGB Conc 32.7 g/dl (32-36); Mean Corpuscular Hemoglobin 31.1 pg (26-34); Mean Corpuscular Volume 95.2 fl (80-100); Mean Platelet Volume 10.5 fl (7.4-10.4); Monocytes Absolute Auto 0.8 K/mm3 (0.1-0.6); Monocytes Percent Auto 4.3 % (2.6-8.5); Neutrophils Absolute Auto 15.3 K/mm3 (1.3-6.7); Neutrophils Percent Auto 79.2 % (45.5-73.1); Platelet Count Result 184 k/mm3 (150-375); Red Blood Count 3.76 M/mm3 (4.2-5.4); Red Cell Distribution Width 13.5 % (11.5-14.5); White Blood Count 19.2 K/mm3 (4.5-10.0)
[2024-03-24 15:29] LABS: Alanine Aminotransferase 8 U/L (6-35); Albumin Level 3.7 g/dL (3.5-5.1); Alkaline Phosphatase 117 U/L (38-126); Anion Gap 13 mmol/L (4-12); Aspartate Amino Transferase 16 U/L (14-36); Bilirubin,Total 0.3 mg/dL (0.2-1.3); Blood Urea Nitrogen 30 mg/dL (7-17); Calcium 8.4 mg/dL (8.4-10.2); Carbon Dioxide 14 mmol/L (22-30); Chloride 112 mmol/L (98-107); Estimated Glomerular Filt Rate 15; Glucose 108 mg/dL (65-110); Potassium < 2.0 mmol/L (3.4-5.0); Sodium 139 mmol/L (137-145)
== END 2024-03-24 13:39 | disposition home or self-care (01) ==
PROVIDERS: PCP Family Medicine
DX: K31.84 Gastroparesis (principal); R19.7 Diarrhea, unspecified
CPT/HCPCS: 36415; 80053; 85025

== ENCOUNTER 2024-04-05 10:35 | Outpatient (CLI) | payer OTHER, SELFPAY ==
[2024-04-05 11:59] LABS: Anion Gap 9 mmol/L (4-12); Blood Urea Nitrogen 18 mg/dL (7-17); Calcium 8.2 mg/dL (8.4-10.2); Carbon Dioxide 26 mmol/L (22-30); Chloride 103 mmol/L (98-107); Estimated Glomerular Filt Rate 22; Glucose 101 mg/dL (65-110); Potassium 2.9 mmol/L (3.4-5.0); Sodium 138 mmol/L (137-145)
== END 2024-04-05 10:36 | disposition home or self-care (01) ==
PROVIDERS: PCP Family Medicine
DX: N17.9 Acute kidney failure, unspecified (principal); E87.6 Hypokalemia; E87.20 Acidosis, unspecified
CPT/HCPCS: 36415; 80048

== ENCOUNTER 2024-05-04 12:55 | Outpatient (CLI) | payer OTHER, SELFPAY ==
[2024-05-04 13:28] LABS: INR 1.1; Prothrombin Time 14.3 Seconds (11.1-14.7)
[2024-05-04 13:29] LABS: Partial Thromboplastin Time 31.1 Seconds (22.3-36.8)
[2024-05-04 13:46] LABS: Anion Gap 14 mmol/L (4-12); Blood Urea Nitrogen 71 mg/dL (7-17); Carbon Dioxide 15 mmol/L (22-30); Chloride 104 mmol/L (98-107); Estimated Glomerular Filt Rate 17; Glucose 92 mg/dL (65-110); Potassium 5.4 mmol/L (3.4-5.0); Sodium 133 mmol/L (137-145)
== END 2024-05-04 12:56 | disposition home or self-care (01) ==
PROVIDERS: Anesthesiology; PCP Family Medicine; Visit Provider Plastic Surgery
DX: E11.65 Type 2 diabetes mellitus with hyperglycemia (principal); E87.6 Hypokalemia; N28.9 Disorder of kidney and ureter, unspecified; Z79.4 Long term (current) use of insulin
CPT/HCPCS: 36415; 80048; 85610; 85730

== ENCOUNTER 2024-05-10 01:09 | Day surgery (SDC) | payer OTHER, SELFPAY ==
[2024-03-21 10:10] VITALS: BMI 26.0
--- NOTE | 2024-03-21 10:19 | PC.NURSE ---
Addendum entered by Diana Dan RN 03/21/24 10:36: PT ALSO INSTRUCTED TO TAKE REXULTI MORNING OF SURGERY Original Note: Report to the Outpatient Waiting Room, entrance under the green pavilion located off [facility], at time __0615_ on date _03/29/24__. Planned Procedure Time: _0815_. Time changes happen often and if your time is changed the preop area will call you the afternoon before. - You and your visitor will be asked to self-screen and do not enter if you have any COVID symptoms. - A mask is optional within the hospital at this time. - No food OR DRINK from midnight until time of surgery PER DR GUNTER ORDERS Take the following medications with a SIP of water the morning of surgery: ___AMLODIPINE. BUPROPION, GABAPENTINE, SERTRALINE TYLENOL IF NEEDED DO NOT STOP ANY OF YOUR OTHER PRESCRIPTION MEDICATIONS PRIOR TO SURGERY ?EXCEPT THE FOLLOWING Medications to discontinue per physician VITAMIN D Date to take last dose 03/26/24 _ Please no make-up, nail citizen of [place], hairspray, perfume, deodorant, or body powder the day of surgery. No jewelry (including any body piercings) or valuables the day of surgery, leave them at home. Please take a shower or bath the night before, or the morning of, surgery with an antibacterial soap. Wear comfortable, loose fitting clothing. Children are encouraged to wear pajamas. - Jewelry must be removed prior to entering the operating room. Rings and piercings that are not removed may be cut off. - The hospital will not accept responsibility for valuables. - Please leave all valuables, including medications, at home the day of surgery. If you are going home after surgery, a licensed rolloff driver must drive you home. - NO public transportation without another adult if you receive anesthesia. - We recommend that an adult stay with you for 24 hours following discharge. - We also recommend that you do not drive, make important decision, drink alcoholic beverages, or take any drugs that were not prescribed by your health care provider for at least 24 hours after your discharge time. For Pediatric surgeries, we recommend two adults accompany the child home. Follow any additional instructions given to you from your surgeon. If you or anyone in your household have experienced Covid symptoms in the past week, please notify your surgeon or the nurse liaison at the phone number below for possible testing. Telephone instructions given to PATIENT_and asked if any additional questions and then verbalized understanding. Patient advised to call surgeon office or pre surgery nurse liaison [phone] if any additional questions.
--- NOTE | 2024-05-04 11:15 | PC.NURSE ---
Report to the Outpatient Waiting Room, entrance under the green pavilion located off [facility], at time _1115_ on date _[id number]_. Planned Procedure Time: _115pm_. Time changes happen often and if your time is changed the preop area will call you the afternoon before. - You and your visitor will be asked to self-screen and do not enter if you have any COVID symptoms. - A mask is optional within the hospital at this time. May have clear liquids (water, carbonated beverages, clear teas, apple juice) with a maximum of 20 ounces until 515am, then nothing to drink after 515am. - No food from midnight until time of surgery Take the following medications with a SIP of water the morning of surgery: __Rexulti, Amlodipine, Bupropion, Gabapentin, Sertraline. DO NOT STOP ANY OF YOUR OTHER PRESCRIPTION MEDICATIONS PRIOR TO SURGERY ?EXCEPT THE FOLLOWING Medications to discontinue per physician vitamin D Date to take last ymyo____[id number] Please no make-up, nail micronesian, hairspray, perfume, deodorant, or body powder the day of surgery. No jewelry (including any body piercings) or valuables the day of surgery, leave them at home. Please take a shower or bath the night before, or the morning of, surgery with an antibacterial soap. Wear comfortable, loose fitting clothing. - Jewelry must be removed prior to entering the operating room. Rings and piercings that are not removed may be cut off. - The hospital will not accept responsibility for valuables. - Please leave all valuables, including medications, at home the day of surgery. If you are going home after surgery, a licensed local company refrigerated truck driver must drive you home. - NO public transportation without another adult if you receive anesthesia. - We recommend that an adult stay with you for 24 hours following discharge. - We also recommend that you do not drive, make important decision, drink alcoholic beverages, or take any drugs that were not prescribed by your health care provider for at least 24 hours after your discharge time. Follow any additional instructions given to you from your surgeon. If you or anyone in your household have experienced Covid symptoms in the past week, please notify your surgeon or the nurse liaison at the phone number below for possible testing. Telephone instructions given to __Joyce___and asked if any additional questions and then verbalized understanding. Patient advised to call surgeon office or pre surgery nurse liaison [phone] if any additional questions.
--- NOTE | 2024-05-10 06:58 | P.OP_ITS ---
Procedure Note - Detailed Date of Procedure 05/10/24 Pre-op Diagnosis right carpal and cubital tunnel syndrome Post-op Diagnosis Same Procedure Performed right endoscopic carpal tunnel release revision and right CuTR Surgeon Stefanie Thompson MD Client Relations Specialist nixon rivera [facility] Anesthesia MAC Description of Procedure INFORMED CONSENT: The patient was seen and examined and marked in the pre-op area.? The patient signed the consent form. PROCEDURE IN DETAIL:The patient taken back to OR on the stretcher in supine position. Time out performed with anesthesia, surgeon and staff agreeing on patient's name site and surgery to be performed SCDs were placed on the lower extremities and inflated. A tourniquet was placed on {right} upper extremity and antibiotics given IV After anesthesia administered sedation I injected {10}cc 1%lido with epi and 0.5% marcaine plain at the operative sites The?{right upper extremity}?was prepped and draped in sterile fashion the??{right upper extremity} was? exsanguinated with Esmarch bandage and tourniquet inflated to 250mmHg I proceeded with making a transvers incision in the right volar wrist crease through skin and dermis with 15 blade scalpel. Littler scissors were used to spread down to antebrachial fascia. I made an incision in the fascia and identifiec the median nerve on the radial aspect of the compartment. It appears free of synovial adhesions and scar tissue. I proceeded with sequential dilation hugging the hook of the hamate and staying in line with the ring finger. I used the synovial elevator to free any adhesions from within the carpal tunnel and a prominent distal band was appreciated. Next I was able to insert the microaire endoscopic carpal tunnel device witih direct visualization of transverse fibers or residual ligament distally and transected this entirelly. Rotating the scope I was able to visualize deeper part of median nerve noting it appeared free of adhesive scar tissue or synovitis and the decision was made not to proceed with open carpal tunnel evaluation and neurolysis. I irrigated with normal saline and closed with 4-0 monocryl fro dermis and subcuticular. I next proceeded with making a longitudinal incision between two heads for flexor carpi ulnaris at end of {right} cubital tunnel with 15 blade scalpel.? Littler scissors were used to spread down to FCU fascia.? An incision was made in FCU fascia and ulnar nerve identified exiting cubital tunnel.? I proceeded with complete retrograde release of the cubital tunnel including 7cm proximal for the intermuscular septum.? The nerve appeared healthy with visible vaso nervorum.? There was no subluxation on full elbow range of motion. ? I irrigated with normal saline and closure with 4-0 monocryl for dermis and subcuticular. The incisions were covered with dermabond then 4x4s, brook, and then a posterior elbow and volar wrist splint for patient safety, security and comfort and secured with vita bandages after the tourniquet was let down noting the hand was warm and well perfused.? Patient awaken from anesthesia and transferred to recovery in stable condition Complications - none EBL- 1cc Disposition - home in stable conditions nixon rivera pa-[facility] was essential for positioning, retraction, closure and dressing placement [facility] Billing Surgery - Charge Forward: Surgery Billing ([id number] and [id number] for nixon)
--- NOTE | 2024-05-10 06:58 | PM.HPGS ---
History of Present Illness History of Present Illness Consent: Chief complaint: right carpal and cubital tunnel syndrome Narrative: Patient seen and examined in pre-operative holding area. No interval change in medical history or symptoms. Patient recalls previous discussion of benefits and alternatives to procedure. Continues to desire to proceed with right endoscopic possible open carpal tunnel release revision and right cubital tunnel release. Reviewed procedure, post-op expectations and risks including but not limited to bleeding, infection, injury to tendon/nerve/vessel, decreased hand function, stiffness, RSD, no change or worsening of symptoms. I discussed the possible use of assistants and their participation in the case. Patient stated understanding and signed the consent form wishing to proceed. Review of Systems Review of Systems: All systems reviewed & are unremarkable except as noted in HPI and below PMFSH Past Medical History Medical History Abdominal adhesions Abdominal distention Abnormal colonoscopy Adult BMI 31.0-31.9 kg/sq m Allergies Anemia Application of prosthesis Atelectasis of both lungs Bipolar disorder C. difficile diarrhea Carpal tunnel syndrome of left wrist Chronic back pain Chronic obstructive pulmonary disease Daytime hypersomnolence Depression with anxiety Diabetic foot infection Diabetic neuropathy Dyspnea on exertion Dysthymia Essential hypertension Essential hypertension Fibromyalgia Fracture Right ankle with chronic deformity. Gall bladder disease Gastroesophageal reflux disease Hammertoes of both feet Hematochezia History of blood transfusion Hyperlipidemia Hypovitaminosis D ILD (interstitial lung disease) Inflammatory arthritis Irritable bowel syndrome with constipation and diarrhea Lactic acidemia Leg edema, left Lymphedema MDD (major depressive disorder), recurrent episode, with atypical features Microalbuminuria due to type 2 diabetes mellitus Microscopic colitis Mixed hyperlipidemia Myalgia Nausea and vomiting in adult Obese Obstructive sleep apnea Onychogryphosis Osteoarthritis Other screening mammogram Overweight with body mass index (BMI) of 28 to 28.9 in adult Peripheral polyneuropathy Pes cavus Pneumonia Post-menopausal Proteinuria, unspecified Psychophysiological insomnia PTSD (post-traumatic stress disorder) Pulmonary nodule Rash and nonspecific skin eruption 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 Stage 4 chronic kidney disease Tinea corporis Tinea unguium Tobacco dependence Tobacco use disorder Trigger finger of left thumb Tubal Type 2 diabetes mellitus with hyperglycemia, without long-term current use of insulin 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 UTI due to extended-spectrum beta lactamase (ESBL) producing Escherichia coli Varicose veins of both lower extremities with inflammation Wound discharge Surgical History Surgical History History of breast biopsy left breast History of cardiac catheterization History of cholecystectomy History of dilatation and curettage History of hysterectomy History of tubal ligation History of umbilical hernia repair S/P partial hysterectomy S/P ventral herniorrhaphy Status post ORIF of fracture of ankle Right ankle Family History Family History Father due to motor vehicle traffic accident Hypertension Bowel cancer Grandparent Diabetes mellitus Other Diabetes mellitus Mother due to motor vehicle traffic accident Sibling Club foot COVID-19 Other Family history of heart disease in male family member before age 55 Social History Social History (Reviewed 05/03/24 @ 10:56 by Judith Cook MA
[2024-05-10 11:08] VITALS: BP 147/68; PULSE 72; RESP 20; TEMP 37.2; O2SAT 97
[2024-05-10] MEDS: LACTATED RINGERS 1,000 ML 30 ML IV CONT (11:15)
[2024-05-10 11:25] LABS: Glucose Point of Care 96 mg/dl (65-105)
--- NOTE | 2024-05-10 11:37 | WPDANESEPPF ---
Anes - Initial Pre Proc Eval Procedure: Operation Date: 05/10/24 13:15 Proposed Procedures p Revision Right Endoscopic Carpal Tunnel Release, Possible Open, Right Cubital Tunnel Release - Stefanie Thompson MD Date/Time: 05/10/24 11:37 Surgeon: Stefanie Thompson MD Pre Op Diagnosis: right carpal and cubital tunnel syndrome Patient Data Age: 59 Gender: F Height: 1.75 m Weight: 80 kg Allergies Allergy/AdvReac Type Severity Reaction Status Date / Time ceftriaxone Allergy Severe Rash Verified 05/10/24 11:09 adhesive Allergy Intermediate Itching/ Verified 05/10/24 11:09 SWELLING / RASH povidone-iodine Allergy Intermediate rash Verified 05/10/24 11:09 soap [From Betadine] Allergy Intermediate Rash Verified 05/10/24 11:09 Home Medications Medication Instructions Recorded Confirmed Type trazodone 150 mg tablet 150 mg PO HS PRN Insomnia 11/04/19 05/04/24 History bupropion HCl 450 mg 24 hr tablet, 450 mg PO DAILY #90 tabs 10/07/22 05/04/24 Rx extended release hydralazine 25 mg tablet 25 mg PO TID 11/30/22 05/04/24 History blood-glucose meter,continuous #1 ea 01/14/23 05/04/24 Rx (Dexcom G7 [employer]) pantoprazole 40 mg tablet,delayed 40 mg PO QAM 01/14/23 05/04/24 History release pen needle, diabetic 32 gauge x #600 ea 02/24/23 05/04/24 Rx /32 (BD Ultra-Fine Erika Pen Needle) sertraline 100 mg tablet 100 mg PO DAILY 07/06/23 05/04/24 History blood-glucose sensor (Dexcom G7 #9 ea 12/06/23 05/04/24 Rx Sensor device) insulin degludec 200 unit/mL (3 12 unit (0.06 mL) subcut QHS #9 mL 12/30/23 05/04/24 Rx mL) subcutaneous pen (Tresiba FlexTouch U-200 insulin) bisacodyl 5 mg tablet,delayed 5 mg PO DAILY PRN Constipation 02/25/24 05/04/24 History release atorvastatin 10 mg tablet 10 mg PO DAILY 03/03/24 05/04/24 History brexpiprazole 2 mg tablet (Rexulti) 2 mg PO DAILY 03/03/24 05/04/24 History cholecalciferol (vitamin D3) 25 25 mcg PO DAILY 03/03/24 05/04/24 History mcg (1,000 unit) chewable tablet (Vitamin D3) furosemide 20 mg tablet 20 mg PO DAILY 03/03/24 05/04/24 History insulin lispro 200 unit/mL (3 mL) 4 unit subcut TIDWM 03/03/24 05/04/24 History subcutaneous pen (Humalog KwikPen U-200 Insulin) promethazine 25 mg tablet 25 mg PO TID PRN Nausea 03/13/24 05/04/24 History gabapentin 300 mg capsule See Rx Instructions PO TID #120 04/17/24 05/04/24 Rx caps potassium chloride 20 mEq 20 meq PO DAILY #90 tabs 04/17/24 05/04/24 Rx tablet,extended release(part/cryst) (Klor-Con M) tramadol 50 mg tablet 50 mg PO Q6H PRN pain #12 tabs 05/10/24 Rx Laboratory Tests 05/10/24 11:19 POC Capillary Glucose 96 mg/dl (65-105) Patient hx anesthesia problems: none Family hx anesthesia problems: none Results Review: All pre-operative results and documents have been reviewed as part of the pre-operative evaluation. [facility] Past Medical History Medical History Abdominal adhesions Abdominal distention Abnormal colonoscopy Adult BMI 31.0-31.9 kg/sq m Allergies Anemia Application of prosthesis Atelectasis of both lungs Bipolar disorder C. difficile diarrhea Carpal tunnel syndrome of left wrist Chronic back pain Chronic obstructive pulmonary disease Daytime hypersomnolence Depression with anxiety Diabetic foot infection Diabetic neuropathy Dyspnea on exertion Dysthymia Essential hypertension Essential hypertension Fibromyalgia Fracture Right ankle with chronic deformity. Gall bladder disease Gastroesophageal reflux disease Hammertoes of both feet Hematochezia History of blood transfusion Hyperlipidemia Hypovitaminosis D ILD (interstitial lung disease) Inflammatory arthritis Irritable bowel syndrome with constipation and diarrhea Lactic acidemia Leg edema, left Lymphedema MDD (major depressive disorder), recurrent episode, with atypical features Microalbuminuria d
[2024-05-10] MEDS: CLINDAMYCIN 900 MG/D5W 50 ML 900 MG/50 ML PIGGYBACK 50 MG IVPB (11:50)
[2024-05-10] MEDS: LIDO 1%/EPINEPHRINE 1:100,000 50 ML VIAL 10 ML INFILTRATE (12:33)
[2024-05-10] MEDS: BUPivacaine HCL 0.5% PF 30 ML VIAL INFILTRATE (12:35)
[2024-05-10 12:52] VITALS: BP 143/55; PULSE 72; RESP 16; O2SAT 95
[2024-05-10 13:22] VITALS: BP 154/61; PULSE 68; RESP 16
== END 2024-05-10 13:42 | disposition home or self-care (01) ==
PROVIDERS: PCP Family Medicine; Visit Provider Plastic Surgery
PROC: 01N54ZZ Release Median Nerve, Percutaneous Endoscopic Approach (ICD-10-PCS; CPT 29848; principal; 2024-05-10 13:15)
DX: G56.01 Carpal tunnel syndrome, right upper limb (principal); G56.21 Lesion of ulnar nerve, right upper limb; I12.9 Hypertensive chronic kidney disease with stage 1 through stage 4 chronic kidney disease, or unspecified chronic kidney disease; E11.22 Type 2 diabetes mellitus with diabetic chronic kidney disease; N18.4 Chronic kidney disease, stage 4 (severe); F31.9 Bipolar disorder, unspecified; J44.9 Chronic obstructive pulmonary disease, unspecified; F41.8 Other specified anxiety disorders; M79.7 Fibromyalgia; K21.9 Gastro-esophageal reflux disease without esophagitis; E55.9 Vitamin D deficiency, unspecified; J84.9 Interstitial pulmonary disease, unspecified; K58.2 Mixed irritable bowel syndrome; E78.2 Mixed hyperlipidemia; E11.42 Type 2 diabetes mellitus with diabetic polyneuropathy; G47.33 Obstructive sleep apnea (adult) (pediatric); F43.10 Post-traumatic stress disorder, unspecified; Z79.4 Long term (current) use of insulin; F17.210 Nicotine dependence, cigarettes, uncomplicated
CPT/HCPCS: 29848; 64718; 82948; J1100; J2250; J2405; J2704; J3010; J7120

== ENCOUNTER 2024-05-11 11:11 | Outpatient (CLI) | payer OTHER, SELFPAY ==
[2024-05-11 11:56] LABS: Alanine Aminotransferase 19 U/L (6-35); Albumin Level 4.1 g/dL (3.5-5.1); Alkaline Phosphatase 118 U/L (38-126); Anion Gap 13 mmol/L (4-12); Aspartate Amino Transferase 21 U/L (14-36); Bilirubin,Total 0.2 mg/dL (0.2-1.3); Blood Urea Nitrogen 60 mg/dL (7-17); Calcium 8.8 mg/dL (8.4-10.2); Carbon Dioxide 19 mmol/L (22-30); Chloride 106 mmol/L (98-107); Cholesterol 107 mg/dL (0-200); Estimated Glomerular Filt Rate 15; Glucose 102 mg/dL (65-110); HDL Direct 68 mg/dL; Potassium 4.7 mmol/L (3.4-5.0); Sodium 138 mmol/L (137-145); Triglycerides 63 mg/dL (<150)
[2024-05-11 11:57] LABS: Anion Gap 14 mmol/L (4-12); Blood Urea Nitrogen 59 mg/dL (7-17); Calcium 8.8 mg/dL (8.4-10.2); Carbon Dioxide 18 mmol/L (22-30); Chloride 106 mmol/L (98-107); Estimated Glomerular Filt Rate 15; Glucose 102 mg/dL (65-110); Magnesium 1.6 mg/dL (1.6-2.3); Potassium 4.7 mmol/L (3.4-5.0); Sodium 138 mmol/L (137-145)
[2024-05-11 11:57] LABS: Creatinine Urine 33.2 mg/dL
[2024-05-11 12:01] LABS: MALB Creatinine Ratio 272.3 mg/g (0-30); Microalbumin Urine Random 90.4 mg/L (0-16.7)
[2024-05-11 12:09] LABS: LDL Cholesterol Direct < 30 mg/dL
[2024-05-11 12:28] LABS: Free T4 Free Thyroxine 0.88 ng/mL (0.78-2.19); Vitamin D 25 Hydroxy 46.7 ng/mL
== END 2024-05-11 11:12 | disposition home or self-care (01) ==
LOC: ANHLAB 11:16
PROVIDERS: Nurse Practitioner Family; PCP Family Medicine; Visit Provider Internal Medicine Nephrology
DX: M79.7 Fibromyalgia (principal); E11.40 Type 2 diabetes mellitus with diabetic neuropathy, unspecified; E11.65 Type 2 diabetes mellitus with hyperglycemia; Z79.4 Long term (current) use of insulin; N18.4 Chronic kidney disease, stage 4 (severe); E87.6 Hypokalemia
CPT/HCPCS: 36415; 80053; 80061; 80069; 82043; 82306; 82607; 83735; 84439; 84443

== ENCOUNTER 2024-05-23 12:43 | Outpatient (CLI) | payer OTHER, SELFPAY ==
[2024-05-23 13:03] LABS: Basophils Percent Auto 0.2 % (0.2-1.2); Eosinophils Absolute Auto 0.1 K/mm3 (0-0.3); Eosinophils Percent Auto 1.1 % (0-4.4); Hematocrit 30.7 % (37.0-47.0); Hemoglobin 9.9 g/dL (12.0-15.0); Immature Granulocyte Percent A 0.8 % (0-0.5); Immature Platelet Fraction Pct 4.1 % (0.9-11.2); Lymphocytes Absolute Auto 1.32 K/mm3 (0.9-3.2); Lymphocytes Percent Auto 9.9 % (18.3-44.2); Mean Corpuscular HGB Conc 32.2 g/dl (32-36); Mean Corpuscular Hemoglobin 31.8 pg (26-34); Mean Corpuscular Volume 98.7 fl (80-100); Monocytes Absolute Auto 1.1 K/mm3 (0.1-0.6); Monocytes Percent Auto 7.9 % (2.6-8.5); Neutrophils Absolute Auto 10.6 K/mm3 (1.3-6.7); Neutrophils Percent Auto 80.1 % (45.5-73.1); Platelet Count Result 76 k/mm3 (150-375); Red Blood Count 3.11 M/mm3 (4.2-5.4); White Blood Count 13.3 K/mm3 (4.5-10.0)
[2024-05-23 13:35] LABS: Anion Gap 20 mmol/L (4-12); Blood Urea Nitrogen 62 mg/dL (7-17); Calcium 7.6 mg/dL (8.4-10.2); Carbon Dioxide 6 mmol/L (22-30); Chloride 106 mmol/L (98-107); Estimated Glomerular Filt Rate 8; Glucose 97 mg/dL (65-110); Potassium 2.6 mmol/L (3.4-5.0); Sodium 132 mmol/L (137-145)
[2024-05-23 14:01] LABS: Toxigenic C. Diff POSITIVE (NEGATIVE)
== END 2024-05-23 12:44 | disposition home or self-care (01) ==
LOC: ANHLAB 12:43
PROVIDERS: PCP Family Medicine; Visit Provider Family Medicine
DX: A04.72 Enterocolitis due to Clostridium difficile, not specified as recurrent (principal)
CPT/HCPCS: 36415; 80048; 85025; 85055; 87493

== ENCOUNTER 2024-05-23 15:44 | Inpatient (IN) | payer OTHER, SELFPAY ==
--- NOTE | ~2024-05-23 | CT_ITS ---
Non-contrast CT scan of the Abdomen and Pelvis Clinical indication: Acute renal sufficiency Technique: 2.5 mm axial scans were obtained through the abdomen and pelvis without intravenous or or al contrast. Dose reduction technique was used on this scan by utilizing automated exposure control a nd iterative reconstruction technique. The dose-length product (DLP) was 741.43 mGy-cm. COMPARISON: 09/12/2020 Findings: Images through the lung bases reveal no abnormalities. There is no evidence of renal or ureteral calculi. The kidneys and the ureters are nondilated. The liver, spleen, pancreas, and adrenals appear normal. Cholecystectomy clips are present. There are atherosclerotic calcifications of the aorta. . There is no evidence of bowel obstruction. Questionable mild extensive large bowel wall thickening ve rsus underdistention. No abscess or free air. Images through the pelvis were performed. There is no evidence of ascites or lymphadenopathy. Urinary bladder unremarkable. No pelvic mass seen. Status post hysterectomy. L2 compression fracture present , age-indeterminate. Impression: Questionable mild large bowel wall thickening diffusely. Correlate for infectious/inflammatory coliti s versus underdistention. L2 compression fracture, age-indeterminate. Reviewed, dictated and finalized at location . Impression: Questionable mild large bowel wall thickening diffusely. Correlate for infectio us/inflammatory colitis versus underdistention. L2 compression fracture, age-indeterminate.
--- NOTE | ~2024-05-23 | US_ITS ---
Renal-Bladder ultrasound Clinical History: Acute on chronic renal insufficiency Technique: Real-time sonographic imaging of the kidneys and urinary bladder was performed. Findings: The right kidney measures 10.4 cm in length and the left kidney measures 10.2 cm. There is no hydronephrosis or renal calculus identified. Renal cortical echogenicity is within normal limits. No renal mass lesion is identified. The urinary bladder is moderately distended at the time of this exam. No intraluminal echoes are iden tified. No abnormal wall thickening is seen. Impression: Unremarkable ultrasound of the kidneys and urinary bladder. Reviewed, dictated and finalized at location M. Impression: Unremarkable ultrasound of the kidneys and urinary bladder.
[2024-05-23 16:59] VITALS: BP 110/45; PULSE 90; RESP 14; TEMP 36.7; O2SAT 96
--- NOTE | 2024-05-23 17:02 | ECG_ITS ---
Test Date: 2024-05-23 17:15:10 Measurements Intervals [place] Rate: 92 P: 15 RI: 196 QRS: -2 QRSD: 114 T: 82 QT: 356 QTc: 440 Interpretive Statements SINUS RHYTHM INCOMPLETE RIGHT BUNDLE BRANCH BLOCK [90+ ms QRS DURATION, TERMINAL R IN V1/V2, 40+ ms S IN I/aVL/V4/V5/V6] SEPTAL MYOCARDIAL INFARCTION , OF INDETERMINATE AGE [40+ ms Q WAVE IN V1/V2] MODERATE T-WAVE ABNORMALITY, CONSIDER LATERAL ISCHEMIA [-0.1+ mV T WAVE IN I/aVL/V5/V6] ABNORMAL ECG No previous ECG available for comparison Electronically Signed On 05-23-2024 18:10:04 CDT by Kwan Evans M.D.
--- NOTE | 2024-05-23 17:04 | ED.RECABL ---
HPI - Recheck/Abnormal Lab/Rx General Chief Complaint: Recheck/Abnormal Lab/Rx <Britney Thomas PA-C - Last Filed: 05/25/24 11:13> Stated Complaint: low potassium <Britney Thomas PA-C - Last Filed: 05/25/24 11:13> Time Seen by Provider: 05/23/24 17:04 <Britney Thomas PA-C - Last Filed: 05/25/24 11:13> Focused HPI: This is a 59 year old female that presents to the ER for low potassium. Reports she was told she should come in for abnormal outpatient blood work. Reports she has been having some nausea and vomiting. GENERAL: Well-appearing, well-nourished, and in no acute distress. HEAD: Normocephalic, atraumatic. CHEST: Clear to auscultation. ?No respiratory distress. HEART: Regular rate and rhythm.? NEURO: ?Alert and oriented x3. Patient screened in triage and initial orders placed.? ?Additional care and disposition to be based upon?diagnostic testing and treatment. <Britney Thomas PA-C - Last Filed: 05/25/24 11:13> Focused HPI: This is a 59 year old female that presents to the ER for low potassium. Reports she was told she should come in for abnormal outpatient blood work. Reports she has been having some nausea and vomiting. GENERAL: Well-appearing, well-nourished, and in no acute distress. HEAD: Normocephalic, atraumatic. CHEST: Clear to auscultation. ?No respiratory distress. HEART: Regular rate and rhythm.? NEURO: ?Alert and oriented x3. Patient screened in triage and initial orders placed.? ?Additional care and disposition to be based upon?diagnostic testing and treatment. Agree with triage assessment, patient states that she has been having diarrhea for a while now and has history of recurrent C diff. <Deb Cote MD - Last Filed: 05/24/24 05:31> Related Data Home Medications: Home Medications Medication Instructions Recorded Confirmed trazodone 150 mg tablet 150 mg PO HS PRN Insomnia 11/04/19 05/24/24 hydralazine 25 mg tablet 25 mg PO TID 11/30/22 05/24/24 pantoprazole 40 mg tablet,delayed 40 mg PO QAM 01/14/23 05/24/24 release atorvastatin 10 mg tablet 10 mg PO DAILY 03/03/24 05/24/24 brexpiprazole 2 mg tablet (Rexulti) 2 mg PO DAILY 03/03/24 05/24/24 cholecalciferol (vitamin D3) 25 25 mcg PO DAILY 03/03/24 05/24/24 mcg (1,000 unit) chewable tablet (Vitamin D3) furosemide 20 mg tablet 20 mg PO DAILY 03/03/24 05/24/24 insulin lispro 200 unit/mL (3 mL) 4 unit subcut TIDWM 03/03/24 05/24/24 subcutaneous pen (Humalog KwikPen U-200 Insulin) promethazine 25 mg tablet 25 mg PO TID PRN Nausea 03/13/24 05/24/24 gabapentin 300 mg capsule 300 mg PO TID 05/24/24 05/24/24 <Britney Thomas PA-C - Last Filed: 05/25/24 11:13> Allergies/Adverse Reactions: Allergies Allergy/AdvReac Type Severity Reaction Status Date / Time ceftriaxone Allergy Severe Rash Verified 05/24/24 06:02 adhesive Allergy Intermediate Itching/ Verified 05/24/24 06:02 SWELLING / RASH povidone-iodine Allergy Intermediate rash Verified 05/24/24 06:02 soap [From Betadine] Allergy Intermediate Rash Verified 05/24/24 06:02 <Britney Thomas PA-C - Last Filed: 05/25/24 11:13> Review of Systems Review of Systems: All systems are reviewed and are negative unless stated otherwise in the HPI. <Deb Cote MD - Last Filed: 05/24/24 05:31> [facility] Past Medical History Medical History: Medical History Abdominal adhesions Abdominal distention Abnormal colonoscopy Adult BMI 31.0-31.9 kg/sq m Allergies Amputation of leg Anemia Application of prosthesis Atelectasis of both lungs Bipolar disorder C. difficile diarrhea Carpal tunnel syndrome of left wrist Chronic back pain Chronic obstructive pulmonary disease Daytime hypersomnolence Depression with anxiety Diabetic foot infection Diabetic neuropathy Dyspnea on exertion Dysthymia Essential hypertension Essential hypertension Fibromyalgia Fracture Right ankle
[2024-05-23] MEDS: POTASSIUM CHLORIDE 20 MEQ PACKET (FOR LIQUID) 40 MEQ PO (17:12)
[2024-05-23 17:52] LABS: Lipase 225 U/L (23-300)
[2024-05-23 17:53] LABS: Magnesium 1.3 mg/dL (1.6-2.3)
[2024-05-23 19:56] LABS: Add Urine Microscopic? YES; Appearance Urine Cloudy (Clear); Bacteria Urine Rare /hpf; Bilirubin Urine Negative (Negative); Blood Urine Trace (Negative); Color Urine Yellow (Yellow); Glucose Urine UA Negative (Negative); Ketones Urine Negative (Negative); Leukocyte Esterase Ur 1+ LEU/UL (Negative); Need Manual Microscopic Reviewed; Nitrate Urine Positive (Negative); Non Pathogenic Casts 0-2; Protein Urine 1+ mg/dL (Negative); RBC Urine 0-2 /hpf (0-2); Squamous Epithelial Cell Urine Few /hpf (Few); Urobilinogen Urine 0.2 mg/dL (<2.0); WBC Urine 21-50 /hpf (0-3); pH Urine 5.5 (5.0-9.0)
[2024-05-24] VITALS (32 sets, daily range): BP systolic 111–138; BP diastolic 55–93; PULSE 77–91; RESP 15–27; TEMP 36.2–36.7; O2SAT 92–100; BMI 26.3
[2024-05-24] MEDS: MAGNESIUM SULF 1 GM/D5W 100 ML 1 GM/100 ML BAG IVPB ×2 (01:54→09:46)
[2024-05-24 02:53] LABS: Anion Gap 17 mmol/L (4-12); Blood Urea Nitrogen 62 mg/dL (7-17); Carbon Dioxide 6 mmol/L (22-30); Chloride 110 mmol/L (98-107); Estimated Glomerular Filt Rate 7; Glucose 103 mg/dL (65-110); Potassium 2.7 mmol/L (3.4-5.0); Sodium 133 mmol/L (137-145)
[2024-05-24] MEDS: POTASSIUM CHLORIDE 20 MEQ PACKET (FOR LIQUID) 40 MEQ PO ×2 (04:48→09:44)
[2024-05-24] MEDS: SODIUM CHLORIDE 0.9% IV 1,000 ML 999 ML IV CONT (04:49)
[2024-05-24] MEDS: SODIUM CHLORIDE 0.9% IV 1,000 ML 100 ML IV CONT ×2 (06:41→21:05)
[2024-05-24] MEDS: levoFLOXacin 750 MG/D5W 150 ML 750 MG/150 ML BAG 100 MG IVPB (06:45)
[2024-05-24] MEDS: VANCOMYCIN HCL 125 MG ORAL CAPSULE PO ×3 (09:45→23:19)
--- NOTE | 2024-05-24 13:20 | ADMGEN ---
This patient, Jeanette Peres, was admitted to IMU Room 210-01. Patient/family oriented to hospital policies and general routines including ID bracelet, bed and alarms, visiting hours, pain management, procedures, bathroom and other care routines, personal items, smoking policy, room service/diet, and visiting hours. Information on how to activate the Rapid Response Team has been discussed. Patient/Family are encouraged to report perceived risks to care and to ask questions if they do not understand what they are told or what they should do.
[2024-05-24 13:40] LABS: Glucose Point of Care 72 mg/dl (65-105)
--- NOTE | 2024-05-24 14:45 | PM.CNNEP ---
Assessment and Plan Assessment and plan (1) LANNY (acute kidney injury): Code(s): N17.9 - Acute kidney failure, unspecified Status: Acute Assessment and Plan: presumably due to prerenal factors from diarrhea along with infection (C. diff colitis + possible UTI) check urine studies, renal ultrasound, and CPK trial of IVFs follow repeat labs and UOP (2) Chronic kidney disease, stage IV (severe): Code(s): N18.4 - Chronic kidney disease, stage 4 (severe) Status: Chronic Assessment and Plan: baseline creatinine usually runs ~ 2.3 - 2.6mg/dl due to biopsy proven diabetic nephropathy/nephrosclerosis along with contributions from her, hypertension, vascular disease and possibly previous/recurrent infections (bacteremia, C. diff colitis...etc) outpatient evaluation with normal renal ultrasound, moderate proteinuria of 2400mg, and a negative serological profile (3) Hypokalemia: Code(s): E87.6 - Hypokalemia Status: Acute Assessment and Plan: suspect due to GI loss (diarrhea) and poor oral intake (nausea/vomiting) and low magnesium replete aggressively IV and oral follow magnesium and replete as needed follow repeat K+ levels (4) Clostridium difficile colitis: Code(s): A04.72 - Enterocolitis due to Clostridium difficile, not specified as recurrent Status: Acute Assessment and Plan: noted positive C. diff toxin assay started on appropriate therapy continue supportive therapy (5) Hypertension: Code(s): I10 - Essential (primary) hypertension Status: Chronic Assessment and Plan: reasonable control at this time follow trend of hemodynamics (6) IDDM (insulin dependent diabetes mellitus): Status: Chronic Assessment and Plan: follow accu-cheks glycemic control per hospitalists I will continue to follow the patient with you while he remains hospitalized and make further recommendations as deemed necessary. Thank you for allowing me to participate in the care of this patient. History of Present Illness Reason for Consult Consult date: 05/24/24 Reason for consult: acute renal failure (on chronic kidney disease) Chief Complaint Chief complaint: Acute kidney injury, Hypokalemia History of Present Illness Narrative: The patient is a 59-year-old female with a past medical history as outlined below who presented to [facility] Room after outpatient labs showed evidence of severe hypokalemia and worsening renal function. The patient had recent labs done by her primary care physician for follow-up of her previous issues/ problems with hypokalemia and worsening renal dysfunction. The labs demonstrated once again that she was significantly hypokalemic along with evidence of acute kidney injury/ acute renal failure on top of her baseline chronic kidney disease. Given these marked laboratory abnormalities and the fact that they have been going on for last few weeks even by previous blood work, she was directed to the ER for further assessment. Workup and evaluation emergency room demonstrated the patient in no apparent distress and otherwise hemodynamically stable. Repeat labs were done which once again confirmed her hypokalemia with a potassium of 2.7, hypomagnesemia with a magnesium of 1.3, and acute kidney injury on top of her baseline chronic kidney disease with a creatinine of 5.9 mg/dL. Upon further questioning to the patient, she reports issues with nausea and vomiting as well as on and off diarrhea. She was diagnosed with C diff colitis in January of 2023 and has had multiple courses of antibiotics and therapy for this condition but it would seem she continues to have on and off diarrhea are in perhaps maybe she has chronic C diff colitis. In the emergency room, she was initiated on IV fluid resuscitation as well as replacement of her electrolyte deficiencies. She subsequently underwent a CT scan of
--- NOTE | 2024-05-24 15:24 | PM.IMHP ---
H&P: HPI History of Present Illness Date/Time: 05/24/24 15:24 Chief Complaint: abnormal labs Narrative: 59 year old female with a past medical history of CKD, diabetes, hypertension, fibromyalgia, carpal tunnel syndrome, right BKA, bipolar disease and chronic C diff. The record review indicates the patient follows with Dr. Huizar for her CKD. Patient also follows up with for her diabetes. Patient recently went to the PCP who checked his labs and sent the potassium was low sent to the ED. patient has been diagnosed with C diff from the year of January 2023. Was multiple time treated with fidaxomicin and vancomycin. Currently the patient has multiple diarrhea and we believe it might be one of the reason for low potassium. Patient is started on pulse oral vancomycin therapy. Patient is also diagnosed with AKA on CKD. Patient is started on IV fluids. Nephrology is consulted and we appreciate their recommendations. Review of Systems Review of Systems: All systems are reviewed and are negative unless stated otherwise in the HPI. PMFSH Past Medical History Medical History Abdominal adhesions Abdominal distention Abnormal colonoscopy Adult BMI 31.0-31.9 kg/sq m Allergies Amputation of leg Anemia Application of prosthesis Atelectasis of both lungs Bipolar disorder C. difficile diarrhea Carpal tunnel syndrome of left wrist Chronic back pain Chronic obstructive pulmonary disease Daytime hypersomnolence Depression with anxiety Diabetic foot infection Diabetic neuropathy Dyspnea on exertion Dysthymia Essential hypertension Essential hypertension Fibromyalgia Fracture Right ankle with chronic deformity. Gall bladder disease Gastroesophageal reflux disease Hammertoes of both feet Hematochezia History of blood transfusion Hyperlipidemia Hypovitaminosis D ILD (interstitial lung disease) Inflammatory arthritis Irritable bowel syndrome with constipation and diarrhea Lactic acidemia Leg edema, left Lymphedema MDD (major depressive disorder), recurrent episode, with atypical features Microalbuminuria due to type 2 diabetes mellitus Microscopic colitis Mixed hyperlipidemia Myalgia Nausea and vomiting in adult Obese Obstructive sleep apnea Onychogryphosis Osteoarthritis Other screening mammogram Overweight with body mass index (BMI) of 28 to 28.9 in adult Peripheral polyneuropathy Pes cavus Pneumonia Post-menopausal Proteinuria, unspecified Psychophysiological insomnia PTSD (post-traumatic stress disorder) Pulmonary nodule Rash and nonspecific skin eruption 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 Stage 4 chronic kidney disease Tinea corporis Tinea unguium Tobacco dependence Tobacco use disorder Trigger finger of left thumb Tubal Type 2 diabetes mellitus with hyperglycemia, without long-term current use of insulin 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 UTI due to extended-spectrum beta lactamase (ESBL) producing Escherichia coli Varicose veins of both lower extremities with inflammation Wound discharge Surgical History Surgical History History of breast biopsy left breast History of cardiac catheterization History of cholecystectomy History of dilatation and curettage History of hysterectomy History of tubal ligation History of umbilical hernia repair S/P partial hysterectomy S/P ventral herniorrhaphy Status post ORIF of fracture of ankle Right ankle Family History Family History Father due to motor vehicle traffic accident Hypertension Bowel cancer Grandparent Diabetes mellitus Other Diabetes mellitus Mother due to motor vehicle traffic accident Sibling Club foot COVID-19 Other
[2024-05-24 17:08] LABS: Glucose Point of Care 144 mg/dl (65-105)
[2024-05-24 17:45] LABS: Potassium 3.4 mmol/L (3.4-5.0)
[2024-05-24] MEDS: hydrALAZINE HCL 25 MG TABLET PO (17:48)
[2024-05-24] MEDS: SACCHAROMYCES BOULARDII 250 MG CAPSULE PO (17:49)
[2024-05-24 20:56] LABS: Creatinine Urine 53.6 mg/dL; Total Protein Urine Random 72 mg/dL; Ur Ttl Prot Creatinine Ratio 1.34 mg/mg (0-0.20)
[2024-05-24 20:58] LABS: Urea Random Urine 372 MG/DL
[2024-05-24 21:00] LABS: Sodium Urine Random 19 meq/L
[2024-05-24 21:06] LABS: Glucose Point of Care 112 mg/dl (65-105)
[2024-05-24] MEDS: traZODone HCL 50 MG TABLET 150 MG PO (21:06)
[2024-05-24] MEDS: INSULIN GLARGINE (*BKC) 100 UNITS/ML 12 UNITS SUB-Q (21:06)
[2024-05-24 22:55] LABS: Eosinophil Urine None Seen % (None Seen); Urine Eos QC 2nd Tech Confirmed
[2024-05-25] VITALS (14 sets, daily range): BP systolic 130–142; BP diastolic 49–89; PULSE 71–99; RESP 16–23; TEMP 36.3–37.2; O2SAT 95–98
[2024-05-25 04:54] LABS: Hematocrit 28.9 % (37.0-47.0); Hemoglobin 9.2 g/dL (12.0-15.0); Mean Corpuscular HGB Conc 31.8 g/dl (32-36); Mean Corpuscular Hemoglobin 31.7 pg (26-34); Mean Corpuscular Volume 99.7 fl (80-100); Mean Platelet Volume 10.8 fl (7.4-10.4); Platelet Count Result 77 k/mm3 (150-375); Red Cell Distribution Width 14.2 % (11.5-14.5); White Blood Count 9.3 K/mm3 (4.5-10.0)
[2024-05-25 05:25] LABS: Alanine Aminotransferase 9 U/L (6-35); Alkaline Phosphatase 113 U/L (38-126); Anion Gap 13 mmol/L (4-12); Aspartate Amino Transferase 13 U/L (14-36); Bilirubin,Total 0.1 mg/dL (0.2-1.3); Blood Urea Nitrogen 48 mg/dL (7-17); Calcium 7.9 mg/dL (8.4-10.2); Carbon Dioxide 6 mmol/L (22-30); Chloride 117 mmol/L (98-107); Creatine Kinase 50 U/L (30-135); Estimated CRCL calculation 13 ml/min; Estimated Glomerular Filt Rate 10; Glucose 109 mg/dL (65-110); Magnesium 1.6 mg/dL (1.6-2.3); Sodium 136 mmol/L (137-145)
[2024-05-25 05:52] LABS: Hepatitis B Surface Antigen Negative (Negative)
[2024-05-25 06:09] LABS: Hepatitis B Surface Anti Res Negative
[2024-05-25] MEDS: VANCOMYCIN HCL 125 MG ORAL CAPSULE PO ×4 (06:18→23:52)
[2024-05-25] MEDS: SODIUM BICARBONATE 8.4% 50 MEQ/50 ML SYRINGE IV PUSH (06:18)
[2024-05-25] MEDS: traMADol HCL (*CRX) 50 MG TABLET PO ×2 (06:18→20:44)
[2024-05-25] MEDS: POTASSIUM BICARBONATE 25 MEQ TABEF 50 MEQ PO ×2 (06:18→22:52)
[2024-05-25] MEDS: SODIUM CHLORIDE 0.9% IV 1,000 ML 100 ML IV CONT ×2 (06:59→18:51)
[2024-05-25 08:17] LABS: Glucose Point of Care 100 mg/dl (65-105)
[2024-05-25] MEDS: SACCHAROMYCES BOULARDII 250 MG CAPSULE PO ×2 (09:21→18:52)
[2024-05-25] MEDS: POTASSIUM CHLORIDE 20 MEQ ER TABLET PO (09:21)
[2024-05-25] MEDS: SODIUM BICARBONATE TAB 650 MG TABLET 1300 MG PO ×2 (09:21→18:52)
[2024-05-25] MEDS: ATORVASTATIN 10 MG TABLET PO (09:22)
[2024-05-25] MEDS: PANTOPRAZOLE 40 MG TABLET PO (09:22)
[2024-05-25] MEDS: hydrALAZINE HCL 25 MG TABLET PO ×3 (09:22→18:52)
[2024-05-25] MEDS: CHOLECALCIFEROL 1,000 UNITS TABLET 1000 UNITS PO (09:22)
[2024-05-25 12:10] LABS: Glucose Point of Care 91 mg/dl (65-105)
--- NOTE | 2024-05-25 12:59 | P.CONGI_ITS ---
I, Delmer Kamara MD, have provided a substantive portion of the care of this patient and discussed the patient with my Nurse Practitioner. I have reviewed any new relevant radiographic and laboratory results including medications. I agree with her documentation as noted below.?I personally performed the medical decision making and much of the history and exam for this encounter. briefly, she has multiple comorbidities including BKA, DM, CKD and multiple episodes of Cdiff treated in the past with vowst, previous colonoscopy showed normal colon but bx c/w colitis. Here again with episode of C diff and worsening renal failure, again on dificid and avoid to use systemic antibiotics if possible. Probably will benefit again of fecal transplant after resolution of current infection. Will monitor. Assessment and Plan Assessment and plan (1) Recurrent Clostridioides difficile infection: Code(s): A49.8 - Other bacterial infections of unspecified site Status: Acute (2) Lower abdominal pain: Code(s): R10.30 - Lower abdominal pain, unspecified Status: Acute (3) Nausea and vomiting: Qualifiers: Vomiting type: unspecified Vomiting Intractability: non-intractable Qualified Code(s): R11.2 - Nausea with vomiting, unspecified Code(s): R11.2 - Nausea with vomiting, unspecified Status: Resolved (4) Gastroparesis: Code(s): K31.84 - Gastroparesis Status: Acute (5) Incontinence of feces with fecal urgency: Code(s): R15.9 - Full incontinence of feces; R15.2 - Fecal urgency Status: Acute Plan 1. Recurrent C. diff/Diarrhea/Abdominal pain /fecal urgency/ fecal incontinence: Last colonoscopy 12/09/2021 showed nonspecific moderate diffuse chronic colitis. Patient with history of recurrent C diff. She was seen by [facility] 06/17/2023 at which time she was started on FMT Vowst for recurrent C diff. following that visit the patient was advised to take vancomycin prophylactically if she has ever started on antibiotics and continue this medication for 5-7 days following completion of antibiotic therapy. Colonoscopy was recommended at that time but patient never followed up. Per patient she was hospitalized earlier this summer at [facility] at which time she was diagnosed and treated for C diff. The patient had carpal tunnel surgery 05/10/2024 at which time she was given IV antibiotics prior to surgery.Current symptoms include liquid stools with urgency and accidents, 5-20 times daily for the past week. Lower abdominal crampy pain associated with bowel movements. Stool studies positive for C diff 2 days ago. * Continue antibiotics * Start dificid 200 mg twice daily for 10 days, followed by 200 mg once every other day for 20 days * Hold PPI * Continue Florastor * Consider repeat colonoscopy with biopsies if symptoms persist * Patient would likely benefit from infectious disease referral either inpatient or outpatient 2. Nausea/Vomiting/Gastroparesis: Last EGD 02/05/2023 was normal. Gastric emptying study 03/11/2023 showed delayed gastric emptying. Patient reports improvement in symptoms. * Continue current antiemetic therapy as needed * If symptoms return, consider starting reglan Thank you very much for allowing me to share in the care of this very nice patient. This report may have been done utilizing a voice recognition system. Attempts have been made to correct errors. However, there may be uncorrected grammatical, spelling, and recognition errors present. GI Consult Note Consult date/time: 05/25/24 12:59 Reas
--- NOTE | 2024-05-25 12:59 | WPDGICN ---
Assessment and Plan Assessment and plan (1) Recurrent Clostridioides difficile infection: Code(s): A49.8 - Other bacterial infections of unspecified site Status: Acute (2) Lower abdominal pain: Code(s): R10.30 - Lower abdominal pain, unspecified Status: Acute (3) Nausea and vomiting: Qualifiers: Vomiting type: unspecified Vomiting Intractability: non-intractable Qualified Code(s): R11.2 - Nausea with vomiting, unspecified Code(s): R11.2 - Nausea with vomiting, unspecified Status: Resolved (4) Gastroparesis: Code(s): K31.84 - Gastroparesis Status: Acute (5) Incontinence of feces with fecal urgency: Code(s): R15.9 - Full incontinence of feces; R15.2 - Fecal urgency Status: Acute Plan 1. Recurrent C. diff/Diarrhea/Abdominal pain /fecal urgency/ fecal incontinence: Last colonoscopy 12/09/2021 showed nonspecific moderate diffuse chronic colitis. Patient with history of recurrent C diff. She was seen by [facility] 06/17/2023 at which time she was started on FMT Vowst for recurrent C diff. following that visit the patient was advised to take vancomycin prophylactically if she has ever started on antibiotics and continue this medication for 5-7 days following completion of antibiotic therapy. Colonoscopy was recommended at that time but patient never followed up. Per patient she was hospitalized earlier this summer at [facility] at which time she was diagnosed and treated for C diff. The patient had carpal tunnel surgery 05/10/2024 at which time she was given IV antibiotics prior to surgery.Current symptoms include liquid stools with urgency and accidents, 5-20 times daily for the past week. Lower abdominal crampy pain associated with bowel movements. Stool studies positive for C diff 2 days ago. Continue antibiotics Start dificid 200 mg twice daily for 10 days, followed by 200 mg once every other day for 20 days Hold PPI Continue Florastor Consider repeat colonoscopy with biopsies if symptoms persist Patient would likely benefit from infectious disease referral either inpatient or outpatient 2. Nausea/Vomiting/Gastroparesis: Last EGD 02/05/2023 was normal. Gastric emptying study 03/11/2023 showed delayed gastric emptying. Patient reports improvement in symptoms. Continue current antiemetic therapy as needed If symptoms return, consider starting reglan Thank you very much for allowing me to share in the care of this very nice patient. This report may have been done utilizing a voice recognition system. Attempts have been made to correct errors. However, there may be uncorrected grammatical, spelling, and recognition errors present. GI Consult Note Consult date/time: 05/25/24 12:59 Reason for consult: Recurrent C-Diff HPI: This is a pleasant 58-year-old female with a past medical surgical history of osteomyelitis status post BKA, diabetes, gastroparesis, neuropathy, COPD, depression, HLD, MILIND, recurrent C diff, umbilical hernia repair, cholecystectomy, HLD, hysterectomy, recent carpal tunnel surgery. She presented to the ER room 05/24/2024 with complaints of diarrhea. GI consulted for recurrent C. diff. Patient has been treated for recurrent C. diff > 10 times. She was seen by [facility] 06/17/2023 and started on FMT pills (Vowst). She was advised to take vancomycin prophylactically if started on antibiotics. Previously treated with Dificid, Levaquin, and vancomycin. Hospitalized at [facility] in February/March 2024 for C. diff, low potassium, and low magnesium. Current issues include diarrhea starting a week ago, with 5-20 bowel movements daily. Prior to this, stools were loose formed. Now experiencing liquid stools with urgency and Incontinence. Denies blood in stool or black stools. Reports lower abdominal crampy pain that increases before bowel movements and resolves after. Experienced nausea and vomiting, w
--- NOTE | 2024-05-25 13:55 | P.PNNP_ITS ---
Progress Note: A&P Assessment and Plan (1) LANNY (acute kidney injury): Code(s): N17.9 - Acute kidney failure, unspecified Status: Acute Assessment and Plan: * improvement noted * presumably due to prerenal factors from diarrhea along with infection (C. diff colitis + possible UTI) * evaluation to date: * renal ultrasound normal * urine electrolyte prerenal * urine eosinophils negative * CPK normal * on trial of IVFs * follow repeat labs and UOP (2) Chronic kidney disease, stage IV (severe): Code(s): N18.4 - Chronic kidney disease, stage 4 (severe) Status: Chronic Assessment and Plan: * baseline creatinine usually runs ~ 2.3 - 2.6mg/dl * due to biopsy proven diabetic nephropathy/nephrosclerosis along with contributions from her, hypertension, vascular disease and possibly previous/recurrent infections (bacteremia, C. diff colitis...etc) * outpatient evaluation with normal renal ultrasound, moderate proteinuria of 2400mg, and a negative serological profile (3) Hypokalemia: Code(s): E87.6 - Hypokalemia Status: Acute Assessment and Plan: * suspect due to GI loss (diarrhea) and poor oral intake (nausea/vomiting) and low magnesium * replete aggressively IV and oral * follow magnesium and replete as needed * follow repeat K+ levels (4) Clostridium difficile colitis: Code(s): A04.72 - Enterocolitis due to Clostridium difficile, not specified as recurrent Status: Acute Assessment and Plan: * noted positive C. diff toxin assay * started on appropriate therapy * continue supportive therapy (5) Hypertension: Code(s): I10 - Essential (primary) hypertension Status: Chronic Assessment and Plan: * reasonable control at this time * follow trend of hemodynamics (6) IDDM (insulin dependent diabetes mellitus): Status: Chronic Assessment and Plan: * follow accu-cheks * glycemic control per hospitalists Will continue to follow. Subjective Date/time seen: 05/25/24 13:55 Interval history: Follow-up for acute kidney injury/acute renal failure on chronic kidney disease. Continues to have ongoing diarrhea so rectal tube placed; Gastroenterology consultation earlier today with recommendations noted; no apparent distress noted at the time of my visit; frustrated about being in the hospita; noted improvement in renal function/creatinine. Exam Narrative: General: WD/WN female in NAD Heart: normal S1 and S2; no rub Lungs: clear to auscultation Abdomen: soft, nontender, nondistended, positive bowel sounds Extremities: no cyanosis or clubbing; no edema; s/p right BKA Skin: warm and dry Objective Data Vital Signs Vital Signs: Vital Signs Temp Pulse Resp BP Pulse Ox O2 Del Method 05/25/24 13:36 Room Air 05/25/24 12:10 97.9 F 80 23 H 135/55 L 97 05/25/24 08:01 98.3 F 99 20 142/62 H 97 05/25/24 04:00 97.5 F L 95 22 H 134/56 L 98 05/25/24 04:00 91 05/25/24 04:00 Room Air 05/25/24 00:00 82 05/25/24 00:00 Room Air 05/24/24 23:57 97.8 F 85 20 138/58 L 97 05/24/24 20:00 82 05/24/24 20:00 Room Air 05/24/24 20:31 98.1 F 80 20 129/58 L 99 Intake/Output Intake/Output:
--- NOTE | 2024-05-25 13:55 | PM.PNNEP ---
Progress Note: A&P Assessment and Plan (1) LANNY (acute kidney injury): Code(s): N17.9 - Acute kidney failure, unspecified Status: Acute Assessment and Plan: improvement noted presumably due to prerenal factors from diarrhea along with infection (C. diff colitis + possible UTI) evaluation to date: renal ultrasound normal urine electrolyte prerenal urine eosinophils negative CPK normal on trial of IVFs follow repeat labs and UOP (2) Chronic kidney disease, stage IV (severe): Code(s): N18.4 - Chronic kidney disease, stage 4 (severe) Status: Chronic Assessment and Plan: baseline creatinine usually runs ~ 2.3 - 2.6mg/dl due to biopsy proven diabetic nephropathy/nephrosclerosis along with contributions from her, hypertension, vascular disease and possibly previous/recurrent infections (bacteremia, C. diff colitis...etc) outpatient evaluation with normal renal ultrasound, moderate proteinuria of 2400mg, and a negative serological profile (3) Hypokalemia: Code(s): E87.6 - Hypokalemia Status: Acute Assessment and Plan: suspect due to GI loss (diarrhea) and poor oral intake (nausea/vomiting) and low magnesium replete aggressively IV and oral follow magnesium and replete as needed follow repeat K+ levels (4) Clostridium difficile colitis: Code(s): A04.72 - Enterocolitis due to Clostridium difficile, not specified as recurrent Status: Acute Assessment and Plan: noted positive C. diff toxin assay started on appropriate therapy continue supportive therapy (5) Hypertension: Code(s): I10 - Essential (primary) hypertension Status: Chronic Assessment and Plan: reasonable control at this time follow trend of hemodynamics (6) IDDM (insulin dependent diabetes mellitus): Status: Chronic Assessment and Plan: follow accu-cheks glycemic control per hospitalists Will continue to follow. Subjective Date/time seen: 05/25/24 13:55 Interval history: Follow-up for acute kidney injury/acute renal failure on chronic kidney disease. Continues to have ongoing diarrhea so rectal tube placed; Gastroenterology consultation earlier today with recommendations noted; no apparent distress noted at the time of my visit; frustrated about being in the hospita; noted improvement in renal function/creatinine. Exam Narrative: General: WD/WN female in NAD Heart: normal S1 and S2; no rub Lungs: clear to auscultation Abdomen: soft, nontender, nondistended, positive bowel sounds Extremities: no cyanosis or clubbing; no edema; s/p right BKA Skin: warm and dry Objective Data Vital Signs Vital Signs: Vital Signs Temp Pulse Resp BP Pulse Ox O2 Del Method 05/25/24 13:36 Room Air 05/25/24 12:10 97.9 F 80 23 H 135/55 L 97 05/25/24 08:01 98.3 F 99 20 142/62 H 97 05/25/24 04:00 97.5 F L 95 22 H 134/56 L 98 05/25/24 04:00 91 05/25/24 04:00 Room Air 05/25/24 00:00 82 05/25/24 00:00 Room Air 05/24/24 23:57 97.8 F 85 20 138/58 L 97 05/24/24 20:00 82 05/24/24 20:00 Room Air 05/24/24 20:31 98.1 F 80 20 129/58 L 99 Intake/Output Intake/Output: Intake & Output 05/22/24 05/23/24 05/24/24 05/25/24 23:59 23:59 23:59 23:59 Intake Total 2030 3720 Output Total 1150 1400 Balance 880 2320 Meds/Results Medications: Active Medications Generic Name Dose Route Start Last Admin Trade Name Freq PRN Reason Stop Dose Admin Albuterol 2 puff 05/24/24 15:22 Albuterol Sulfate (*Sp) Aerosol 1 Puff INHALATION Q6H PRN shortness of breath or wheezing Atorvastatin Calcium 10 mg 05/25/24 09:00 05/25/24 09:22 Atorvastatin 10 Mg Tablet PO 10 mg DAILY [facility] Administration Fidaxomicin 200 mg 05/25/24 21:00 Fidaxomicin 200 Mg Tablet PO Q12HR KOBE Hydralazine HCl 25 mg 05/24/24 17
--- NOTE | 2024-05-25 14:20 | PM.IMPN ---
Progress Note: A&P Assessment and Plan (1) Hypokalemia: Code(s): E87.6 - Hypokalemia Status: Acute (2) Acute kidney injury: Code(s): N17.9 - Acute kidney failure, unspecified Status: Acute (3) Dehydration: Code(s): E86.0 - Dehydration Status: Acute (4) C. difficile diarrhea: Code(s): A04.72 - Enterocolitis due to Clostridium difficile, not specified as recurrent Status: Acute Plan # Chronic C.Diff Diarrhea -Start dificid 200 mg twice daily for 10 days, followed by 200 mg once every other day for 20 day -started oral vancomycin therapy -Hold PPI -Continue Florastor -Consider repeat colonoscopy with biopsies if symptoms persist -Patient would likely benefit from infectious disease referral either inpatient or outpatient -contact precaution -avoid antimotility agent like loperamide -started on probiotic -[facility] 06/17/2023 at which time she was started on FMT Vowst for recurrent C diff. - #LANNY on CKD -biopsy proven diabetic nephropathy/nephrosclerosis along with contributions from her, hypertension, vascular disease and possibly recurrent infections (bacteremia, C. diff colitis...etc). -possibly due to the dehydration from the diarrhea -started on IV fluid -Cr 4.5< 5.90 -GFR 7 -Started bicarb BID -consult nephrology and following recommendation Subjective Date/time seen: 05/25/24 14:20 Interval history: Patient continues to have diarrhea. Rectal tube has been placed. GA advised to start Dificid 200 mg p.o. b.i.d. for 10 days followed by 200 mg once every other day for 20 days. Patient renal function is getting better. Nephrology is on the board. Patient currently refuses p.o. bicarbonate b.i.d. Review of Systems Review of Systems: All systems are reviewed and are negative unless stated otherwise in the HPI. Exam Narrative: General: Alert, awake, afebrile, in no acute distress. HEENT: PERRL, no rhinorrhea, no post nasal drip, oropharynx clear. Cardiovascular: Regular rate and rhythm, no murmurs, rubs or gallops, no peripheral edema. Respiratory: Clear to auscultation bilaterally, no tachypnea, no wheezing, no rhonchi, no rubs, no respiratory distress. Abdomen: Soft, nontender, nondistended, no rebound, no guarding, no peritoneal signs. Musculoskeletal: No joint swelling or deformity, normal muscle tone, right [id number] amputation. Skin: No rashes or petechia, no signs of infection. Neurological: Alert and oriented to person, place, and time. Follows all commands. No focal deficits, speech is clear and fluent. Objective Data Vital Signs Vital Signs: Vital Signs - 24 hr 05/24/24 16:52 05/24/24 16:00 05/24/24 16:00 Temperature 97.7 F Pulse Rate 79 79 Respiratory Rate 20 Blood Pressure 111/55 L Pulse Oximetry 98 Oxygen Delivery Room Air 05/24/24 18:00 05/24/24 20:31 05/24/24 20:00 Temperature 98.1 F Pulse Rate 79 80 Respiratory Rate 20 Blood Pressure 129/58 L Pulse Oximetry 99 Oxygen Delivery Room Air 05/24/24 20:00 05/24/24 23:57 05/25/24 00:00 Temperature 97.8 F Pulse Rate 82 85 Respiratory Rate 20 Blood Pressure 138/58 L Pulse Oximetry 97 Oxygen Delivery Room Air 05/25/24 00:00 05/25/24 04:00 05/25/24 04:00 Temperature Pulse Rate 82 91 Respiratory Rate Blood Pressure Pulse Oximetry Oxygen Delivery Room Air 05/25/24 04:00 05/25/24 08:01 05/25/24 12:10 Temperature 97.5 F L 98.3 F 97.9 F Pulse Rate 95 99 80 Respiratory Rate 22 H 20 23 H Blood Pressure 134/56 L 142/62 H 135/55 L Pulse Oximetry 98 97 97 Oxygen Delivery 05/25/24 08:00 Temperature Pulse Rate Respiratory Rate Blood Pressure Pulse Oximetry 97 Oxygen Delivery Room Air Intake/Output Intake/Output: Intake & Output 05/22/24 05/23/24 05/24/24 05/25/24 23:59 23:59 23:59 23:59 Intake Total 2029 1969 Output Total 1150 1400 Balance 880 570 Meds/Results
--- NOTE | 2024-05-25 16:05 | PCPTNOTE ---
On 05/25/24, the student, [Cecy Mendoza], provided care and completed [facility] documentation on this patient. I have reviewed the student's documentation and agree with the findings.
[2024-05-25 16:37] LABS: Glucose Point of Care 89 mg/dl (65-105)
[2024-05-25 19:19] LABS: Anion Gap 14 mmol/L (4-12); Blood Urea Nitrogen 39 mg/dL (7-17); Calcium 7.5 mg/dL (8.4-10.2); Carbon Dioxide 8 mmol/L (22-30); Chloride 113 mmol/L (98-107); Estimated CRCL calculation 15 ml/min; Estimated Glomerular Filt Rate 12; Glucose 123 mg/dL (65-110); Sodium 135 mmol/L (137-145)
--- NOTE | 2024-05-25 19:34 | PC.NURSE ---
Dr. High was called to report incisions from carpal tunnel surgery 2 days ago are slightly pink and swollen. states that he thinks this is ok, as it is not red. He will not come to see the patient
[2024-05-25] MEDS: traZODone HCL 50 MG TABLET 150 MG PO (20:45)
[2024-05-25] MEDS: FIDAXOMICIN 200 MG TABLET PO (20:45)
[2024-05-25 20:53] LABS: Glucose Point of Care 107 mg/dl (65-105)
[2024-05-26] VITALS (17 sets, daily range): BP systolic 133–151; BP diastolic 57–67; PULSE 76–95; RESP 18–24; TEMP 36.4–37; O2SAT 95–98
[2024-05-26] MEDS: VANCOMYCIN HCL 125 MG ORAL CAPSULE PO ×3 (06:36→17:51)
[2024-05-26 07:30] LABS: Basophils Percent Auto 0.3 % (0.2-1.2); Eosinophils Absolute Auto 0.1 K/mm3 (0-0.3); Eosinophils Percent Auto 0.9 % (0-4.4); Hematocrit 28.5 % (37.0-47.0); Hemoglobin 9.1 g/dL (12.0-15.0); Immature Granulocyte Absolute 0.19 K/mm3 (0.00-0.031); Immature Granulocyte Percent A 1.6 % (0-0.5); Immature Platelet Fraction Pct 2.8 % (0.9-11.2); Lymphocytes Absolute Auto 1.32 K/mm3 (0.9-3.2); Mean Corpuscular HGB Conc 31.9 g/dl (32-36); Mean Corpuscular Hemoglobin 31.8 pg (26-34); Mean Corpuscular Volume 99.7 fl (80-100); Mean Platelet Volume 10.7 fl (7.4-10.4); Monocytes Absolute Auto 0.7 K/mm3 (0.1-0.6); Neutrophils Absolute Auto 9.6 K/mm3 (1.3-6.7); Neutrophils Percent Auto 80.2 % (45.5-73.1); Platelet Count Result 88 k/mm3 (150-375); Red Blood Count 2.86 M/mm3 (4.2-5.4); Red Cell Distribution Width 14.8 % (11.5-14.5)
[2024-05-26 07:38] LABS: Alanine Aminotransferase 9 U/L (6-35); Albumin Level 2.9 g/dL (3.5-5.1); Alkaline Phosphatase 91 U/L (38-126); Anion Gap 12 mmol/L (4-12); Aspartate Amino Transferase 12 U/L (14-36); Bilirubin,Total 0.3 mg/dL (0.2-1.3); Blood Urea Nitrogen 36 mg/dL (7-17); Calcium 7.6 mg/dL (8.4-10.2); Carbon Dioxide 11 mmol/L (22-30); Chloride 116 mmol/L (98-107); Estimated CRCL calculation 18 ml/min; Estimated Glomerular Filt Rate 13; Glucose 110 mg/dL (65-110); Magnesium 1.2 mg/dL (1.6-2.3); Phosphorus 4.1 mg/dL (2.5-4.5); Sodium 139 mmol/L (137-145)
[2024-05-26 08:26] LABS: Glucose Point of Care 102 mg/dl (65-105)
[2024-05-26] MEDS: SACCHAROMYCES BOULARDII 250 MG CAPSULE PO ×2 (09:37→17:50)
[2024-05-26] MEDS: ATORVASTATIN 10 MG TABLET PO (09:37)
[2024-05-26] MEDS: FIDAXOMICIN 200 MG TABLET PO ×2 (09:38→21:09)
[2024-05-26] MEDS: hydrALAZINE HCL 25 MG TABLET PO ×3 (09:39→17:50)
[2024-05-26] MEDS: CHOLECALCIFEROL 1,000 UNITS TABLET 1000 UNITS PO (09:39)
[2024-05-26] MEDS: POTASSIUM BICARBONATE 25 MEQ TABEF 50 MEQ PO (09:40)
[2024-05-26] MEDS: MAGNESIUM SULF 1 GM/D5W 100 ML 1 GM/100 ML BAG IVPB (10:01)
[2024-05-26] MEDS: SODIUM BICARBONATE TAB 650 MG TABLET 1300 MG PO ×3 (10:01→21:09)
--- NOTE | 2024-05-26 10:40 | PCOTNOTE ---
Patient refused to participate in therapy services. Patient stated having a bad day, not feeling well and can not move without going to the bathroom.
--- NOTE | 2024-05-26 10:55 | PM.PNNEP ---
Progress Note: A&P Assessment and Plan (1) LANNY (acute kidney injury): Code(s): N17.9 - Acute kidney failure, unspecified Status: Acute Assessment and Plan: improvement noted presumably due to prerenal factors from diarrhea along with infection (C. diff colitis + possible UTI) evaluation to date: renal ultrasound normal urine electrolyte prerenal urine eosinophils negative CPK normal on trial of IVFs follow repeat labs and UOP (2) Chronic kidney disease, stage IV (severe): Code(s): N18.4 - Chronic kidney disease, stage 4 (severe) Status: Chronic Assessment and Plan: baseline creatinine usually runs ~ 2.3 - 2.6mg/dl due to biopsy proven diabetic nephropathy/nephrosclerosis along with contributions from her, hypertension, vascular disease and possibly previous/recurrent infections (bacteremia, C. diff colitis...etc) outpatient evaluation with normal renal ultrasound, moderate proteinuria of 2400mg, and a negative serological profile (3) Hypokalemia: Code(s): E87.6 - Hypokalemia Status: Acute Assessment and Plan: suspect due to GI loss (diarrhea) and poor oral intake (nausea/vomiting) and low magnesium replete aggressively IV and oral follow magnesium and replete as needed follow repeat K+ levels (4) Metabolic acidosis: Code(s): E87.20 - Acidosis, unspecified Status: Acute Assessment and Plan: due to LANNY/ARF along with GI losses adding oral sodium bicarbonate along with adding to IVFs follow CO2 levels (5) Clostridium difficile colitis: Code(s): A04.72 - Enterocolitis due to Clostridium difficile, not specified as recurrent Status: Acute Assessment and Plan: noted positive C. diff toxin assay started on appropriate therapy as recommended by GI continue supportive therapy (6) Hypertension: Code(s): I10 - Essential (primary) hypertension Status: Chronic Assessment and Plan: reasonable control at this time follow trend of hemodynamics (7) IDDM (insulin dependent diabetes mellitus): Status: Chronic Assessment and Plan: follow accu-cheks glycemic control per hospitalists Will continue to follow. Subjective Date/time seen: 05/26/24 10:55 Interval history: Follow-up for acute kidney injury/acute renal failure on chronic kidney disease. Had a rough night per patient and did not get much sleep; reports less diarrhea/loose stools at this time; renal function/creatinine continues to slowly improve; stated on oral sodium bicarbonate as well as added to IVFs yesterday to compensate for metabolic acidosis; no acute distress voiced at the time of my visit. Exam Narrative: General: WD/WN female in NAD Heart: normal S1 and S2; no rub Lungs: clear to auscultation Abdomen: soft, nontender, nondistended, positive bowel sounds Extremities: no cyanosis or clubbing; no edema; s/p right BKA Skin: warm and intact Objective Data Vital Signs Vital Signs: Vital Signs Temp Pulse Resp BP Pulse Ox O2 Del Method 05/26/24 10:53 97.5 F L 83 22 H 139/58 L 96 05/26/24 08:21 98 F 80 24 H 133/57 L 96 05/26/24 06:00 81 05/26/24 04:00 Room Air 05/26/24 04:00 82 05/26/24 04:00 97.8 F 84 20 151/63 H 95 05/25/24 21:20 95 Room Air 05/26/24 02:00 95 05/26/24 00:00 Room Air 05/26/24 00:00 93 05/25/24 23:31 97.7 F 95 16 130/49 L 95 05/25/24 22:00 92 05/25/24 20:00 98.9 F 72 16 140/89 98 05/25/24 20:00 Room Air 05/25/24 20:00 81 05/25/24 18:00 77 05/25/24 16:00 71 05/25/24 16:00 Room Air 05/25/24 16:00 97.4 F L 88 18 138/49 L 97 Intake/Output Intake/Output: Intake & Output 05/23/24 05/24/24 05/25/24 05/26/24 23:59 23:59 23:59 23:59 Intake Total 2030 5620 680 Output Total 1150 1400 2700 Balance 880 4220
--- NOTE | 2024-05-26 10:55 | P.PNNP_ITS ---
Progress Note: A&P Assessment and Plan (1) LANNY (acute kidney injury): Code(s): N17.9 - Acute kidney failure, unspecified Status: Acute Assessment and Plan: * improvement noted * presumably due to prerenal factors from diarrhea along with infection (C. diff colitis + possible UTI) * evaluation to date: * renal ultrasound normal * urine electrolyte prerenal * urine eosinophils negative * CPK normal * on trial of IVFs * follow repeat labs and UOP (2) Chronic kidney disease, stage IV (severe): Code(s): N18.4 - Chronic kidney disease, stage 4 (severe) Status: Chronic Assessment and Plan: * baseline creatinine usually runs ~ 2.3 - 2.6mg/dl * due to biopsy proven diabetic nephropathy/nephrosclerosis along with contributions from her, hypertension, vascular disease and possibly previous/recurrent infections (bacteremia, C. diff colitis...etc) * outpatient evaluation with normal renal ultrasound, moderate proteinuria of 2400mg, and a negative serological profile (3) Hypokalemia: Code(s): E87.6 - Hypokalemia Status: Acute Assessment and Plan: * suspect due to GI loss (diarrhea) and poor oral intake (nausea/vomiting) and low magnesium * replete aggressively IV and oral * follow magnesium and replete as needed * follow repeat K+ levels (4) Metabolic acidosis: Code(s): E87.20 - Acidosis, unspecified Status: Acute Assessment and Plan: * due to LANNY/ARF along with GI losses * adding oral sodium bicarbonate along with adding to IVFs * follow CO2 levels (5) Clostridium difficile colitis: Code(s): A04.72 - Enterocolitis due to Clostridium difficile, not specified as recurrent Status: Acute Assessment and Plan: * noted positive C. diff toxin assay * started on appropriate therapy as recommended by GI * continue supportive therapy (6) Hypertension: Code(s): I10 - Essential (primary) hypertension Status: Chronic Assessment and Plan: * reasonable control at this time * follow trend of hemodynamics (7) IDDM (insulin dependent diabetes mellitus): Status: Chronic Assessment and Plan: * follow accu-cheks * glycemic control per hospitalists Will continue to follow. Subjective Date/time seen: 05/26/24 10:55 Interval history: Follow-up for acute kidney injury/acute renal failure on chronic kidney disease. Had a rough night per patient and did not get much sleep; reports less diarrhea/loose stools at this time; renal function/creatinine continues to slowly improve; stated on oral sodium bicarbonate as well as added to IVFs yesterday to compensate for metabolic acidosis; no acute distress voiced at the time of my visit. Exam Narrative: General: WD/WN female in NAD Heart: normal S1 and S2; no rub Lungs: clear to auscultation Abdomen: soft, nontender, nondistended, positive bowel sounds Extremities: no cyanosis or clubbing; no edema; s/p right BKA Skin: warm and intact Objective Data Vital Signs Vital Signs: Vital Signs Temp Pulse Resp BP Pulse Ox O2 Del Method 05/26/24 10:53 97.5 F L 83 22 H 139/58 L 96 05/26/24 08:21 98 F 80 24 H 133/57 L 96 05/26/24 06:00 81 05/26/24 04:00 Room Air 05/26/24 04:00 82 05/26/24 04:00 97.8 F 84 20 151/63 H 9
--- NOTE | 2024-05-26 11:51 | PCPTNOTE ---
Attempted to see patient for PT, however patient refused. Patient reported she had rough night and does not feel good.
[2024-05-26] MEDS: POTASSIUM BICARBONATE 25 MEQ TABEF PO (12:56)
--- NOTE | 2024-05-26 14:16 | PM.IMPN ---
Progress Note: A&P Assessment and Plan (1) Hypokalemia: Code(s): E87.6 - Hypokalemia Status: Acute (2) Acute kidney injury: Code(s): N17.9 - Acute kidney failure, unspecified Status: Acute (3) Dehydration: Code(s): E86.0 - Dehydration Status: Acute (4) C. difficile diarrhea: Code(s): A04.72 - Enterocolitis due to Clostridium difficile, not specified as recurrent Status: Acute Plan # Chronic C.Diff Diarrhea -Start dificid 200 mg twice daily for 10 days, followed by 200 mg once every other day for 20 day -started oral vancomycin therapy -Hold PPI -Continue Florastor -Consider repeat colonoscopy with biopsies if symptoms persist -Patient would likely benefit from infectious disease referral either inpatient or outpatient -contact precaution -avoid antimotility agent like loperamide -started on probiotic -[facility] 06/17/2023 at which time she was started on FMT Vowst for recurrent C diff. #LANNY on CKD -biopsy proven diabetic nephropathy/nephrosclerosis along with contributions from her, hypertension, vascular disease and possibly recurrent infections (bacteremia, C. diff colitis...etc). -possibly due to the dehydration from the diarrhea -started on IV fluid -Cr 4.5< 5.90 -GFR 7 -Started bicarb BID -consult nephrology and following recommendation Subjective Date/time seen: 05/26/24 14:16 Interval history: Patient was examined at the bedside. Patient reports of less amount of diarrhea from the morning although patient is on rectal tube. Patient has been started on sodium bicarb p.o. b.i.d. by bridge saw operator. Patient was examined by web project manager is will agree with continuing the antibiotics and start Dificid 200 mg twice daily for 10 days followed by 200 mg once every other day for 20 days and advised to call the PPI and continue with the probiotics. GA will consider colonoscopy if the biopsy if the symptoms persist. Review of Systems Review of Systems: All systems are reviewed and are negative unless stated otherwise in the HPI. Exam Narrative: General: Alert, awake, afebrile, in no acute distress. HEENT: PERRL, no rhinorrhea, no post nasal drip, oropharynx clear. Cardiovascular: Regular rate and rhythm, no murmurs, rubs or gallops, no peripheral edema. Respiratory: Clear to auscultation bilaterally, no tachypnea, no wheezing, no rhonchi, no rubs, no respiratory distress. Abdomen: Soft, nontender, nondistended, no rebound, no guarding, no peritoneal signs. Musculoskeletal: No joint swelling or deformity, normal muscle tone, right [id number] amputation. Skin: No rashes or petechia, no signs of infection. Neurological: Alert and oriented to person, place, and time. Follows all commands. No focal deficits, speech is clear and fluent. Objective Data Vital Signs Vital Signs: Vital Signs - 24 hr 05/25/24 14:36 05/25/24 15:15 05/25/24 16:00 Temperature 97.4 F L Pulse Rate 88 Respiratory Rate 18 Blood Pressure 138/49 L Pulse Oximetry 97 Oxygen Delivery Room Air Room Air 05/25/24 16:00 05/25/24 16:00 05/25/24 18:00 Temperature Pulse Rate 71 77 Respiratory Rate Blood Pressure Pulse Oximetry Oxygen Delivery Room Air 05/25/24 20:00 05/25/24 20:00 05/25/24 20:00 Temperature 98.9 F Pulse Rate 81 72 Respiratory Rate 16 Blood Pressure 140/89 Pulse Oximetry 98 Oxygen Delivery Room Air 05/25/24 22:00 05/25/24 23:31 05/26/24 00:00 Temperature 97.7 F Pulse Rate 92 95 93 Respiratory Rate 16 Blood Pressure 130/49 L Pulse Oximetry 95 Oxygen Delivery 05/26/24 00:00 05/26/24 02:00 05/25/24 21:20 Temperature Pulse Rate 95 Respiratory Rate Blood Pressure Pulse Oximetry 95 Oxygen Delivery Room Air Room Air 05/26/24 04:00 05/26/24 04:00 05/26/24 04:00 Temperature 97.8 F Pulse Rate 84 82 Respiratory Rate 20 Blood Pressure 151/63 H Pulse Oxi
[2024-05-26 15:00] LABS: Glucose Point of Care 157 mg/dl (65-105)
[2024-05-26 15:38] LABS: Glucose Point of Care 107 mg/dl (65-105)
--- NOTE | 2024-05-26 15:44 | PC.NURSE ---
Reviewed isolation precautions with family prior to entering room. Informed family isolation is to prevent bacteria from spreading to individuals outside of the room. Discussed the detriment bacteria could have on elderly, infants and the immune compromised individuals. Family gowned and gloved prior to entering room.
[2024-05-26 17:08] LABS: Anion Gap 14 mmol/L (4-12); Blood Urea Nitrogen 35 mg/dL (7-17); Calcium 7.6 mg/dL (8.4-10.2); Carbon Dioxide 10 mmol/L (22-30); Chloride 111 mmol/L (98-107); Estimated CRCL calculation 20 ml/min; Estimated Glomerular Filt Rate 14; Glucose 145 mg/dL (65-110); Potassium 3.5 mmol/L (3.4-5.0); Sodium 135 mmol/L (137-145)
--- NOTE | 2024-05-26 18:10 | WPDGIPROGNO ---
Progress Note: A&P Assessment and Plan (1) C. difficile diarrhea: Code(s): A04.72 - Enterocolitis due to Clostridium difficile, not specified as recurrent Status: Acute Assessment and Plan: multiple episodes, she even received vowst less diarrhea since admission on dificid, probably will need long course and avoid systemic abx (2) Lower abdominal pain: Code(s): R10.30 - Lower abdominal pain, unspecified Status: Acute Assessment and Plan: improved (3) Gastroparesis: Code(s): K31.84 - Gastroparesis Status: Acute Assessment and Plan: also h/o DM eating more (4) Acute on chronic kidney failure: Code(s): N17.9 - Acute kidney failure, unspecified; N18.9 - Chronic kidney disease, unspecified Status: Acute Assessment and Plan: by nephrology (5) Type 2 diabetes mellitus with hyperglycemia, with long-term current use of insulin: Code(s): E11.65 - Type 2 diabetes mellitus with hyperglycemia; Z79.4 - retirement (current) use of insulin Status: Acute (6) Diarrhea: Qualifiers: Diarrhea type: unspecified type Qualified Code(s): R19.7 - Diarrhea, unspecified Code(s): R19.7 - Diarrhea, unspecified Status: Acute Subjective Date/time seen: 05/26/24 18:10 Interval history: less diarrhea and eating more she wonders if could go home tomorrow since if feeling better Review of Systems Review of Systems: All systems reviewed & are unremarkable except as noted in HPI and below Exam Narrative: General: Alert, awake, afebrile, in no acute distress. HEENT: PERRL, no rhinorrhea, no post nasal drip, oropharynx clear. Neck: supple Cardiovascular: Regular rate and rhythm, no peripheral edema. Respiratory: Clear to auscultation bilaterally, no respiratory distress. Abdomen: Soft, nontender, nondistended, no rebound, no guarding. Musculoskeletal: No joint swelling or deformity, normal muscle tone, right [id number] amputation. Skin: No rashes or petechia, no signs of infection. Neurological: Alert and oriented to person, place, and time. Follows all commands. No focal deficits, speech is clear and fluent. psych: normal affect Objective Data Vital Signs Vital Signs: Vital Signs - 24 hr 05/25/24 20:00 05/25/24 20:00 05/25/24 20:00 Temperature 98.9 F Pulse Rate 81 72 Respiratory Rate 16 Blood Pressure 140/89 Pulse Oximetry 98 Oxygen Delivery Room Air 05/25/24 22:00 05/25/24 23:31 05/26/24 00:00 Temperature 97.7 F Pulse Rate 92 95 93 Respiratory Rate 16 Blood Pressure 130/49 L Pulse Oximetry 95 Oxygen Delivery 05/26/24 00:00 05/26/24 02:00 05/25/24 21:20 Temperature Pulse Rate 95 Respiratory Rate Blood Pressure Pulse Oximetry 95 Oxygen Delivery Room Air Room Air 05/26/24 04:00 05/26/24 04:00 05/26/24 04:00 Temperature 97.8 F Pulse Rate 84 82 Respiratory Rate 20 Blood Pressure 151/63 H Pulse Oximetry 95 Oxygen Delivery Room Air 05/26/24 06:00 05/26/24 08:21 05/26/24 11:53 Temperature 98 F 97.5 F L Pulse Rate 81 80 83 Respiratory Rate 24 H 22 H Blood Pressure 133/57 L 139/58 L Pulse Oximetry 96 96 Oxygen Delivery 05/26/24 08:00 05/26/24 10:00 05/26/24 12:00 Temperature Pulse Rate 81 80 91 Respiratory Rate Blood Pressure Pulse Oximetry Oxygen Delivery 05/26/24 14:00 05/26/24 09:30 05/26/24 12:00 Temperature Pulse Rate 84 84 Respiratory Rate 22 H Blood Pressure Pulse Oximetry 96 97 Oxygen Delivery Room Air Room Air 05/26/24 16:00 05/26/24 16:00 05/26/24 16:00 Temperature 98.6 F Pulse Rate 79 82 Respiratory Rate 18 Blood Pressure 150/66 H Pulse Oximetry 98 98 Oxygen Delivery Room Air Intake/Output Intake/Output: Intake & Output 05/23/24 05/24/24 05/25/24 05/26/24 23:59 23:59 23:59 23:59 Intake Total 2030 5620 1855 Output Total 1150 1400 3250 Balance 880
[2024-05-26 20:15] LABS: Glucose Point of Care 210 mg/dl (65-105)
[2024-05-26] MEDS: traZODone HCL 50 MG TABLET 150 MG PO (21:09)
[2024-05-26] MEDS: traMADol HCL (*CRX) 50 MG TABLET PO (21:09)
[2024-05-26] MEDS: INSULIN GLARGINE (*BKC) 100 UNITS/ML 12 UNITS SUB-Q (21:10)
[2024-05-27] VITALS (9 sets, daily range): BP systolic 146–156; BP diastolic 52–58; PULSE 72–83; RESP 20; TEMP 36.4–37.1; O2SAT 93–96
[2024-05-27] MEDS: VANCOMYCIN HCL 125 MG ORAL CAPSULE PO ×3 (00:39→12:19)
[2024-05-27 05:32] LABS: Basophils Percent Auto 0.2 % (0.2-1.2); Eosinophils Absolute Auto 0.2 K/mm3 (0-0.3); Eosinophils Percent Auto 1.2 % (0-4.4); Hematocrit 26.8 % (37.0-47.0); Hemoglobin 8.7 g/dL (12.0-15.0); Immature Granulocyte Percent A 1.6 % (0-0.5); Lymphocytes Absolute Auto 2.08 K/mm3 (0.9-3.2); Lymphocytes Percent Auto 17.1 % (18.3-44.2); Mean Corpuscular HGB Conc 32.5 g/dl (32-36); Mean Corpuscular Hemoglobin 32.1 pg (26-34); Mean Corpuscular Volume 98.9 fl (80-100); Mean Platelet Volume 10.6 fl (7.4-10.4); Monocytes Absolute Auto 0.7 K/mm3 (0.1-0.6); Monocytes Percent Auto 5.5 % (2.6-8.5); Neutrophils Percent Auto 74.4 % (45.5-73.1); Platelet Count Result 103 k/mm3 (150-375); Red Blood Count 2.71 M/mm3 (4.2-5.4); White Blood Count 12.2 K/mm3 (4.5-10.0)
[2024-05-27 05:46] LABS: Alanine Aminotransferase 9 U/L (6-35); Alkaline Phosphatase 95 U/L (38-126); Anion Gap 15 mmol/L (4-12); Aspartate Amino Transferase 19 U/L (14-36); Bilirubin,Total 0.3 mg/dL (0.2-1.3); Blood Urea Nitrogen 32 mg/dL (7-17); Calcium 7.9 mg/dL (8.4-10.2); Carbon Dioxide 12 mmol/L (22-30); Chloride 112 mmol/L (98-107); Estimated CRCL calculation 22 ml/min; Estimated Glomerular Filt Rate 16; Glucose 95 mg/dL (65-110); Magnesium 1.3 mg/dL (1.6-2.3); Phosphorus 3.6 mg/dL (2.5-4.5); Sodium 139 mmol/L (137-145)
[2024-05-27 08:59] LABS: Glucose Point of Care 106 mg/dl (65-105)
[2024-05-27] MEDS: buPROPion HCL XL (24 HR) 150 MG TABCR 300 MG PO (09:13)
[2024-05-27] MEDS: SODIUM BICARBONATE TAB 650 MG TABLET 1300 MG PO ×2 (09:14→12:20)
[2024-05-27] MEDS: SACCHAROMYCES BOULARDII 250 MG CAPSULE PO (09:14)
[2024-05-27] MEDS: FIDAXOMICIN 200 MG TABLET PO (09:14)
[2024-05-27] MEDS: CHOLECALCIFEROL 1,000 UNITS TABLET 1000 UNITS PO (09:14)
[2024-05-27] MEDS: hydrALAZINE HCL 25 MG TABLET PO ×2 (09:15→12:26)
[2024-05-27] MEDS: ATORVASTATIN 10 MG TABLET PO (09:15)
--- NOTE | 2024-05-27 10:09 | WPDGIPROGNO ---
Progress Note: A&P Assessment and Plan (1) C. difficile diarrhea: Code(s): A04.72 - Enterocolitis due to Clostridium difficile, not specified as recurrent Status: Acute Assessment and Plan: multiple episodes, she even received vowst less diarrhea since admission on dificid, plan is to complete full treatment for 10 days then every other day for 20 days and avoid systemic abx, hold ppi will follow as needed (2) Lower abdominal pain: Code(s): R10.30 - Lower abdominal pain, unspecified Status: Acute Assessment and Plan: improved (3) Gastroparesis: Code(s): K31.84 - Gastroparesis Status: Acute Assessment and Plan: also h/o DM eating more (4) Acute on chronic kidney failure: Code(s): N17.9 - Acute kidney failure, unspecified; N18.9 - Chronic kidney disease, unspecified Status: Acute Assessment and Plan: by nephrology had biopsy in the past (5) Type 2 diabetes mellitus with hyperglycemia, with long-term current use of insulin: Code(s): E11.65 - Type 2 diabetes mellitus with hyperglycemia; Z79.4 - continuous churn buttermaker (current) use of insulin Status: Acute (6) Diarrhea: Qualifiers: Diarrhea type: unspecified type Qualified Code(s): R19.7 - Diarrhea, unspecified Code(s): R19.7 - Diarrhea, unspecified Status: Acute Assessment and Plan: improving Subjective Date/time seen: 05/27/24 10:09 Interval history: she feels stronger, still diarrhea but less frequent she is asking when she can go home Review of Systems Review of Systems: All systems reviewed & are unremarkable except as noted in HPI and below Exam Narrative: General: Alert, awake, afebrile, in no acute distress. HEENT: PERRL, oropharynx clear. Neck: supple Cardiovascular: Regular rate and rhythm, no peripheral edema. Respiratory: Clear to auscultation bilaterally, no respiratory distress. Abdomen: Soft, nontender, nondistended, no rebound, no guarding. Musculoskeletal: No joint swelling or deformity, normal muscle tone, right [id number] amputation. Skin: No rashes or petechia, no signs of infection. Neurological: Alert and oriented to person, place, and time. Follows all commands. No focal deficits, speech is clear and fluent. psych: normal affect Objective Data Vital Signs Vital Signs: Vital Signs - 24 hr 05/26/24 11:53 05/26/24 12:00 05/26/24 14:00 Temperature 97.5 F L Pulse Rate 83 91 84 Respiratory Rate 22 H Blood Pressure 139/58 L Pulse Oximetry 96 Oxygen Delivery 05/26/24 12:00 05/26/24 16:00 05/26/24 16:00 Temperature 98.6 F Pulse Rate 79 Respiratory Rate 18 Blood Pressure 150/66 H Pulse Oximetry 97 98 98 Oxygen Delivery Room Air Room Air 05/26/24 16:00 05/26/24 18:00 05/26/24 20:15 Temperature 97.6 F Pulse Rate 82 85 83 Respiratory Rate 20 Blood Pressure 137/67 Pulse Oximetry 98 Oxygen Delivery 05/26/24 20:00 05/26/24 22:00 05/26/24 23:20 Temperature 97.6 F Pulse Rate 79 76 81 Respiratory Rate 20 Blood Pressure 137/67 Pulse Oximetry 97 Oxygen Delivery 05/27/24 00:00 05/27/24 02:00 05/27/24 04:00 Temperature Pulse Rate 81 83 81 Respiratory Rate Blood Pressure Pulse Oximetry Oxygen Delivery 05/27/24 04:20 05/27/24 06:00 05/27/24 08:00 Temperature 97.6 F 98.8 F Pulse Rate 81 79 80 Respiratory Rate 20 20 Blood Pressure 155/58 H 146/52 H Pulse Oximetry 93 95 Oxygen Delivery Intake/Output Intake/Output: Intake & Output 05/24/24 05/25/24 05/26/24 05/27/24 23:59 23:59 23:59 23:59 Intake Total 2030 5620 2095 1617.5 Output Total 1150 1400 3550 800 Balance 880 4220 -1455 817.5 Meds/Results Medications: Active Medications Generic Name Dose Route Start Last Admin Trade Name Freq PRN Reason Stop Dose Admin Albuterol 2 puff 05/24/24 15:22 Albuterol Sulfate (*Sp) Aerosol 1 Puff INHALATION Q6H NV
[2024-05-27] MEDS: POTASSIUM CHLORIDE 20 MEQ PACKET (FOR LIQUID) 40 MEQ PO (10:26)
[2024-05-27] MEDS: MAGNESIUM SULF 1 GM/D5W 100 ML 1 GM/100 ML BAG IVPB (10:27)
--- NOTE | 2024-05-27 11:00 | P.PNNP_ITS ---
Progress Note: A&P Assessment and Plan (1) LANNY (acute kidney injury): Code(s): N17.9 - Acute kidney failure, unspecified Status: Acute Assessment and Plan: * improvement noted * presumably due to prerenal factors from diarrhea along with infection (C. diff colitis + possible UTI) * evaluation to date: * renal ultrasound normal * urine electrolyte prerenal * urine eosinophils negative * CPK normal * on trial of IVFs * follow repeat labs and UOP (2) Chronic kidney disease, stage IV (severe): Code(s): N18.4 - Chronic kidney disease, stage 4 (severe) Status: Chronic Assessment and Plan: * baseline creatinine usually runs ~ 2.3 - 2.6mg/dl * due to biopsy proven diabetic nephropathy/nephrosclerosis along with contributions from her, hypertension, vascular disease and possibly previous/recurrent infections (bacteremia, C. diff colitis...etc) * outpatient evaluation with normal renal ultrasound, moderate proteinuria of 2400mg, and a negative serological profile (3) Hypokalemia: Code(s): E87.6 - Hypokalemia Status: Acute Assessment and Plan: * suspect due to GI loss (diarrhea) and poor oral intake (nausea/vomiting) and low magnesium * replete aggressively IV and oral * follow magnesium and replete as needed * follow repeat K+ levels (4) Metabolic acidosis: Code(s): E87.20 - Acidosis, unspecified Status: Acute Assessment and Plan: * due to LANNY/ARF along with GI losses * adding oral sodium bicarbonate along with adding to IVFs * follow CO2 levels (5) Clostridium difficile colitis: Code(s): A04.72 - Enterocolitis due to Clostridium difficile, not specified as recurrent Status: Acute Assessment and Plan: * noted positive C. diff toxin assay * started on appropriate therapy as recommended by GI * continue supportive therapy (6) Hypertension: Code(s): I10 - Essential (primary) hypertension Status: Chronic Assessment and Plan: * reasonable control at this time * follow trend of hemodynamics (7) IDDM (insulin dependent diabetes mellitus): Status: Chronic Assessment and Plan: * follow accu-cheks * glycemic control per hospitalists Will continue to follow - not opposed to discharge from renal perspective if otherwise medically stable Subjective Date/time seen: 05/27/24 11:00 Interval history: Follow-up for acute kidney injury/acute renal failure on chronic kidney disease. Renal function/creatinine continues to improve and although diarrhea is still present, is has lessened significantly; no apparent distress noted at this time; asking me about potentially going home today since she seems to be doing better. Exam Narrative: General: WD/WN female in NAD Heart: normal S1 and S2; no rub Lungs: clear to auscultation Abdomen: soft, nontender, nondistended, positive bowel sounds Extremities: no cyanosis or clubbing; no edema; s/p right BKA Skin: no rash or nodules Objective Data Vital Signs Vital Signs: Vital Signs Temp Pulse Resp BP Pulse Ox O2 Del Method 05/27/24 11:00 97.9 F 74 20 156/58 H 96 05/27/24 09:20 78 05/27/24 08:00 95 Room Air 05/27/24 08:00 98.8 F 80 20 146/52 H 95 05/27/24 06:00 79 05/27/24 04:20 97.6 F 81 20 155/58 H 93
--- NOTE | 2024-05-27 11:00 | PM.PNNEP ---
Progress Note: A&P Assessment and Plan (1) LANNY (acute kidney injury): Code(s): N17.9 - Acute kidney failure, unspecified Status: Acute Assessment and Plan: improvement noted presumably due to prerenal factors from diarrhea along with infection (C. diff colitis + possible UTI) evaluation to date: renal ultrasound normal urine electrolyte prerenal urine eosinophils negative CPK normal on trial of IVFs follow repeat labs and UOP (2) Chronic kidney disease, stage IV (severe): Code(s): N18.4 - Chronic kidney disease, stage 4 (severe) Status: Chronic Assessment and Plan: baseline creatinine usually runs ~ 2.3 - 2.6mg/dl due to biopsy proven diabetic nephropathy/nephrosclerosis along with contributions from her, hypertension, vascular disease and possibly previous/recurrent infections (bacteremia, C. diff colitis...etc) outpatient evaluation with normal renal ultrasound, moderate proteinuria of 2400mg, and a negative serological profile (3) Hypokalemia: Code(s): E87.6 - Hypokalemia Status: Acute Assessment and Plan: suspect due to GI loss (diarrhea) and poor oral intake (nausea/vomiting) and low magnesium replete aggressively IV and oral follow magnesium and replete as needed follow repeat K+ levels (4) Metabolic acidosis: Code(s): E87.20 - Acidosis, unspecified Status: Acute Assessment and Plan: due to LANNY/ARF along with GI losses adding oral sodium bicarbonate along with adding to IVFs follow CO2 levels (5) Clostridium difficile colitis: Code(s): A04.72 - Enterocolitis due to Clostridium difficile, not specified as recurrent Status: Acute Assessment and Plan: noted positive C. diff toxin assay started on appropriate therapy as recommended by GI continue supportive therapy (6) Hypertension: Code(s): I10 - Essential (primary) hypertension Status: Chronic Assessment and Plan: reasonable control at this time follow trend of hemodynamics (7) IDDM (insulin dependent diabetes mellitus): Status: Chronic Assessment and Plan: follow accu-cheks glycemic control per hospitalists Will continue to follow - not opposed to discharge from renal perspective if otherwise medically stable Subjective Date/time seen: 05/27/24 11:00 Interval history: Follow-up for acute kidney injury/acute renal failure on chronic kidney disease. Renal function/creatinine continues to improve and although diarrhea is still present, is has lessened significantly; no apparent distress noted at this time; asking me about potentially going home today since she seems to be doing better. Exam Narrative: General: WD/WN female in NAD Heart: normal S1 and S2; no rub Lungs: clear to auscultation Abdomen: soft, nontender, nondistended, positive bowel sounds Extremities: no cyanosis or clubbing; no edema; s/p right BKA Skin: no rash or nodules Objective Data Vital Signs Vital Signs: Vital Signs Temp Pulse Resp BP Pulse Ox O2 Del Method 05/27/24 11:00 97.9 F 74 20 156/58 H 96 05/27/24 09:20 78 05/27/24 08:00 95 Room Air 05/27/24 08:00 98.8 F 80 20 146/52 H 95 05/27/24 06:00 79 05/27/24 04:20 97.6 F 81 20 155/58 H 93 05/27/24 04:00 81 05/27/24 02:00 83 05/27/24 00:00 81 05/26/24 23:20 97.6 F 81 20 137/67 97 05/26/24 22:00 76 05/26/24 20:00 79 05/26/24 20:15 97.6 F 83 20 137/67 98 05/26/24 18:00 85 05/26/24 16:00 82 05/26/24 16:00 98 Room Air 05/26/24 16:00 98.6 F 79 18 150/66 H 98 05/26/24 14:00 84 Intake/Output Intake/Output: Intake & Output 05/24/24 05/25/24 05/26/24 05/27/24 23:59 23:59 23:59 23:59 Intake Total 2030 5620 2095 1617.5 Output Total 1150 1400 3550 800 Balance 880 4220 -1455 817.5 Meds/Results Medications: Ac
[2024-05-27 12:06] LABS: Glucose Point of Care 169 mg/dl (65-105)
[2024-05-27] MEDS: CALCIUM CARBONATE (OSCAL) 500 MG TABLET PO (12:20)
[2024-05-27] MEDS: POTASSIUM BICARBONATE 25 MEQ TABEF 50 MEQ PO (12:34)
[2024-05-27] MEDS: INSULIN ASPART (*BKC) 100 UNITS/ML SUB-Q (12:38)
--- NOTE | 2024-05-27 13:01 | PM.DS ---
DS: Admitting Diagnosis Discharge Date 05/27/2024 Admitting Diagnosis Diarrhea,low K DS: Summary Hospital Course Hospital Course: 59 year old female with a past medical history of CKD, diabetes, hypertension, fibromyalgia, carpal tunnel syndrome, right BKA, bipolar disease and chronic C diff. The record review indicates the patient follows with Dr. Huizar for her CKD. Patient also follows up with for her diabetes. Patient recently went to the PCP who checked his labs and sent the potassium was low sent to the ED. patient has been diagnosed with C diff from the year of January 2023. Was multiple time treated with fidaxomicin and vancomycin. Currently the patient has multiple diarrhea and we believe it might be one of the reason for low potassium. Patient is started on pulse oral vancomycin therapy. Patient is also diagnosed with AKA on CKD. Patient is started on IV fluids. Nephrology is consulted . Upon admission we started the patient on oral vancomycin pulse therapy and consult GI. GI recommended to continue the vancomycin and added fidaxomicin 200 mg b.i.d. for 10 days and then continue every other day for 20 days. Today patient has been significantly reduced. We advised her to follow-up with the GI in regards to her C diff infection and advised to continue the vancomycin and fidaxomicin as instructed and follow up with the GI for the medical reconciliation in regards to c.diff. Patient labs indicates low bicarbonate and advised to continue the sodium bicarbonate 650 mg 2 tabs b.i.d. advised to follow-up with recommended. We discussed the case with Dr. Huizar would recommend to follow with him upon discharge within a week and he will decide to continue the sodium bicarbonate or not. Patient has verbal understanding of the instruction. Status at Discharge Cognitive/behavioral status at discharge: Stable Time Spent with Patient Time attestation: Total time spent providing and/or coordinating discharge services: 45 minutes Exam Narrative: General: Alert, awake, afebrile, in no acute distress. HEENT: PERRL, no rhinorrhea, no post nasal drip, oropharynx clear. Cardiovascular: Regular rate and rhythm, no murmurs, rubs or gallops, no peripheral edema. Respiratory: Clear to auscultation bilaterally, no tachypnea, no wheezing, no rhonchi, no rubs, no respiratory distress. Abdomen: Soft, nontender, nondistended, no rebound, no guarding, no peritoneal signs. Musculoskeletal: No joint swelling or deformity, normal muscle tone, right [id number] amputation. Skin: No rashes or petechia, no signs of infection. Neurological: Alert and oriented to person, place, and time. Follows all commands. No focal deficits, speech is clear and fluent. DS: Data Data Completed and Pending Labs on day of discharge: Labs from last 24 hours 05/27/24 05/27/24 05/27/24 11:47 07:58 05:12 WBC 12.2 H RBC 2.71 L Hgb 8.7 L Hct 26.8 L MCV 98.9 MCH 32.1 MCHC 32.5 RDW 15.0 H Plt Count 103 L MPV 10.6 H Immature Gran % (Auto) 1.6 H Neut % (Auto) 74.4 H Lymph % (Auto) 17.1 L [place] % (Auto) 5.5 Eos % (Auto) 1.2 Baso % (Auto) 0.2 Lymph # (Auto) 2.08 [place] # (Auto) 0.7 H Eos # (Auto) 0.2 Baso # (Auto) 0.0 Abs Immat Gran (auto) 0.20 H Absolute Neuts (auto) 9.0 H Absolute Nucleated RBC 0.000 Nucleated RBC % 0.0 Sodium 139 Potassium 3.0 L Chloride 112 H Carbon Dioxide 12 L Anion Gap 15 H BUN 32 H Creatinine 3.00 H Estim Creat Clear Calc 22 Estimated GFR 16 L Glucose 95 POC Capillary Glucose 169 H 106 H Calcium 7.9 L Phosphorus 3.6 Magnesium 1.3 L Total Bilirubin 0.3 AST 19 ALT 9 Alkaline Phosphatase 95 Total Protein 6.0 L Albumin 3.0 L 05/26/24 05/26/24 05/26/24 20:07 16:51 15:28 WBC RBC Hgb Hct MCV MCH MCHC RDW Plt Count MPV Immature Gran % (Auto)
[2024-05-28 05:58] LABS: Hepatitis B Core Ab Total NON-REACTIVE (NON-REACTIVE)
== END 2024-05-27 15:12 | disposition home or self-care (01) | DRG 683 ==
LOC: ANHED 05-24 05:31 → ANHIMU 05-24 06:06
PROVIDERS: Internal Medicine Nephrology; Physician Assistant; Admitting Provider Internal Medicine; Emergency Provider Emergency Medicine; PCP Family Medicine; Visit Provider General Practice
DX: N17.9 Acute kidney failure, unspecified (principal); A04.71 Enterocolitis due to Clostridium difficile, recurrent; E87.6 Hypokalemia; E86.0 Dehydration; N18.4 Chronic kidney disease, stage 4 (severe); I12.9 Hypertensive chronic kidney disease with stage 1 through stage 4 chronic kidney disease, or unspecified chronic kidney disease; R15.9 Full incontinence of feces; K31.84 Gastroparesis; R15.2 Fecal urgency; E11.22 Type 2 diabetes mellitus with diabetic chronic kidney disease; E83.42 Hypomagnesemia; F17.210 Nicotine dependence, cigarettes, uncomplicated; D64.9 Anemia, unspecified; F31.9 Bipolar disorder, unspecified; J44.9 Chronic obstructive pulmonary disease, unspecified; F41.8 Other specified anxiety disorders; E11.42 Type 2 diabetes mellitus with diabetic polyneuropathy; M79.7 Fibromyalgia; K21.9 Gastro-esophageal reflux disease without esophagitis; E11.65 Type 2 diabetes mellitus with hyperglycemia; K58.2 Mixed irritable bowel syndrome; E78.2 Mixed hyperlipidemia; G47.33 Obstructive sleep apnea (adult) (pediatric); M19.90 Unspecified osteoarthritis, unspecified site; Z90.710 Acquired absence of both cervix and uterus; Z90.49 Acquired absence of other specified parts of digestive tract; Z79.4 Long term (current) use of insulin
CPT/HCPCS: 36415; 74176; 76775; 80048; 80053; 80069; 81001; 82550; 82570; 82948; 83690; 83735; 84100; 84132; 84156; 84300; 84540; 85025; 85027; 85055; 85999; 86704; 86706; 87045; 87086; 87088; 87340; 87427; 87449; 87493; 93005; 96365; 96366; 97110; 97161; 97165; 99285; A9270; J1815; J1956; J3475; J7030

== ENCOUNTER 2024-06-05 14:50 | Outpatient (CLI) | payer OTHER, SELFPAY ==
[2024-06-05 16:20] LABS: Albumin Level 3.2 g/dL (3.5-5.1); Anion Gap 14 mmol/L (4-12); Blood Urea Nitrogen 29 mg/dL (7-17); Calcium 8.3 mg/dL (8.4-10.2); Carbon Dioxide 16 mmol/L (22-30); Chloride 108 mmol/L (98-107); Estimated Glomerular Filt Rate 14; Glucose 123 mg/dL (65-110); Magnesium 1.4 mg/dL (1.6-2.3); Phosphorus 4.8 mg/dL (2.5-4.5); Potassium 2.7 mmol/L (3.4-5.0); Sodium 138 mmol/L (137-145)
== END 2024-06-05 14:51 | disposition home or self-care (01) ==
LOC: ANHLAB 14:53
PROVIDERS: PCP Family Medicine; Visit Provider Internal Medicine Nephrology
DX: E83.42 Hypomagnesemia (principal); E87.6 Hypokalemia; N17.9 Acute kidney failure, unspecified; N18.4 Chronic kidney disease, stage 4 (severe)
CPT/HCPCS: 36415; 80069; 83735

== ENCOUNTER 2024-06-14 15:27 | Outpatient (CLI) | payer OTHER, SELFPAY ==
[2024-06-14 16:52] LABS: Albumin Level 3.2 g/dL (3.5-5.1); Anion Gap 14 mmol/L (4-12); Blood Urea Nitrogen 20 mg/dL (7-17); Carbon Dioxide 15 mmol/L (22-30); Chloride 110 mmol/L (98-107); Estimated Glomerular Filt Rate 17; Glucose 89 mg/dL (65-110); Magnesium 1.4 mg/dL (1.6-2.3); Phosphorus 5.1 mg/dL (2.5-4.5); Potassium 2.8 mmol/L (3.4-5.0); Sodium 139 mmol/L (137-145)
== END 2024-06-14 15:28 | disposition home or self-care (01) ==
LOC: ANHLAB 15:28
PROVIDERS: PCP Family Medicine; Visit Provider Internal Medicine Nephrology
DX: N18.4 Chronic kidney disease, stage 4 (severe) (principal); E83.42 Hypomagnesemia; E87.6 Hypokalemia
CPT/HCPCS: 36415; 80069; 83735

== ENCOUNTER 2024-07-11 13:58 | Outpatient (CLI) | payer OTHER, SELFPAY ==
[2024-07-11 14:35] LABS: Albumin Level 3.8 g/dL (3.5-5.1); Anion Gap 8 mmol/L (4-12); Blood Urea Nitrogen 31 mg/dL (7-17); Calcium 8.8 mg/dL (8.4-10.2); Carbon Dioxide 23 mmol/L (22-30); Chloride 102 mmol/L (98-107); Estimated Glomerular Filt Rate 16; Glucose 92 mg/dL (65-110); Magnesium 1.6 mg/dL (1.6-2.3); Phosphorus 4.5 mg/dL (2.5-4.5); Potassium 4.5 mmol/L (3.4-5.0); Sodium 133 mmol/L (137-145)
== END 2024-07-11 13:59 | disposition home or self-care (01) ==
LOC: ANHLAB 14:00
PROVIDERS: PCP Family Medicine; Visit Provider Internal Medicine Nephrology
DX: E83.42 Hypomagnesemia (principal); E87.6 Hypokalemia; N17.9 Acute kidney failure, unspecified; N18.4 Chronic kidney disease, stage 4 (severe)
CPT/HCPCS: 36415; 80069; 83735

== ENCOUNTER 2024-07-26 12:58 | Outpatient (CLI) | payer OTHER, SELFPAY ==
[2024-07-26 13:31] LABS: Hematocrit 30.6 % (37.0-47.0); Hemoglobin 9.2 g/dL (12.0-15.0)
[2024-07-26 13:46] LABS: INR 1.2; Prothrombin Time 15.7 Seconds (11.1-14.7)
[2024-07-26 13:47] LABS: Partial Thromboplastin Time 33.5 Seconds (22.3-36.8)
== END 2024-07-26 12:59 | disposition home or self-care (01) ==
PROVIDERS: Anesthesiology; PCP Family Medicine; Visit Provider Plastic Surgery
DX: N18.4 Chronic kidney disease, stage 4 (severe) (principal); D64.9 Anemia, unspecified
CPT/HCPCS: 36415; 85014; 85018; 85610; 85730

== ENCOUNTER 2024-08-16 16:23 | Outpatient (CLI) | payer OTHER, SELFPAY ==
[2024-08-16 17:51] LABS: Parathyroid Intact 241.9 pg/mL (14.5-75.2)
[2024-08-16 18:12] LABS: Total Protein Urine Random 40 mg/dL; Ur Ttl Prot Creatinine Ratio 2.22 mg/mg (0-0.20)
[2024-08-16 18:44] LABS: Vitamin D 25 Hydroxy 56.7 ng/mL
[2024-08-16 18:51] LABS: Albumin Level 4.1 g/dL (3.5-5.1); Anion Gap 10 mmol/L (4-12); Blood Urea Nitrogen 36 mg/dL (7-17); Calcium 8.9 mg/dL (8.4-10.2); Carbon Dioxide 21 mmol/L (22-30); Chloride 109 mmol/L (98-107); Estimated Glomerular Filt Rate 14; Glucose 92 mg/dL (65-110); Phosphorus 6.9 mg/dL (2.5-4.5); Sodium 140 mmol/L (137-145)
== END 2024-08-16 16:24 | disposition home or self-care (01) ==
LOC: ANHLAB 16:24
PROVIDERS: PCP Family Medicine; Visit Provider Internal Medicine Nephrology
DX: E11.22 Type 2 diabetes mellitus with diabetic chronic kidney disease (principal); I12.9 Hypertensive chronic kidney disease with stage 1 through stage 4 chronic kidney disease, or unspecified chronic kidney disease; N18.4 Chronic kidney disease, stage 4 (severe); E55.9 Vitamin D deficiency, unspecified; E87.6 Hypokalemia; N25.81 Secondary hyperparathyroidism of renal origin
CPT/HCPCS: 36415; 80069; 82306; 82570; 83970; 84156

== ENCOUNTER 2024-09-22 14:04 | Outpatient (CLI) | payer OTHER, SELFPAY ==
[2024-09-22 14:17] LABS: Basophils Percent Auto 0.3 % (0.2-1.2); Eosinophils Absolute Auto 0.1 K/mm3 (0-0.3); Eosinophils Percent Auto 1.5 % (0-4.4); Hematocrit 30.1 % (37.0-47.0); Hemoglobin 9.1 g/dL (12.0-15.0); Immature Granulocyte Absolute 0.02 K/mm3 (0.00-0.031); Immature Granulocyte Percent A 0.2 % (0-0.5); Immature Reticulocyte Fraction 11.1 % (3.0-15.9); Lymphocytes Absolute Auto 1.82 K/mm3 (0.9-3.2); Lymphocytes Percent Auto 20.9 % (18.3-44.2); Mean Corpuscular HGB Conc 30.2 g/dl (32-36); Mean Corpuscular Hemoglobin 30.1 pg (26-34); Mean Corpuscular Volume 99.7 fl (80-100); Mean Platelet Volume 9.7 fl (7.4-10.4); Monocytes Absolute Auto 0.5 K/mm3 (0.1-0.6); Monocytes Percent Auto 5.5 % (2.6-8.5); Neutrophils Absolute Auto 6.2 K/mm3 (1.3-6.7); Neutrophils Percent Auto 71.6 % (45.5-73.1); Platelet Count Result 162 k/mm3 (150-375); Red Blood Count 3.02 M/mm3 (4.2-5.4); Red Cell Distribution Width 13.8 % (11.5-14.5); Reticulocyte Percent 1.49 % (0.7-4.3); Reticulocytes Absolute 0.05 10^6/uL (0.02-0.10); White Blood Count 8.7 K/mm3 (4.5-10.0)
[2024-09-22 16:25] LABS: Iron 40 ug/dL (37-170)
[2024-09-22 16:26] LABS: Alanine Aminotransferase 10 U/L (6-35); Albumin Level 3.9 g/dL (3.5-5.1); Alkaline Phosphatase 130 U/L (38-126); Anion Gap 7 mmol/L (4-12); Aspartate Amino Transferase 23 U/L (14-36); Bilirubin,Total 0.3 mg/dL (0.2-1.3); Blood Urea Nitrogen 39 mg/dL (7-17); Calcium 8.9 mg/dL (8.4-10.2); Carbon Dioxide 19 mmol/L (22-30); Chloride 114 mmol/L (98-107); Estimated Glomerular Filt Rate 14; Glucose 111 mg/dL (65-110); Potassium 4.3 mmol/L (3.4-5.0); Sodium 140 mmol/L (137-145)
[2024-09-22 16:34] LABS: Percent Iron Saturation 16 % (20-50)
[2024-09-22 17:32] LABS: Folic Acid 5.8 ng/mL (2.76->20)
[2024-09-26 15:48] LABS: Methylmalonic Acid 319 nmol/L (55-335)
[2024-09-28 08:17] LABS: Soluble Transferrin Receptor 1.42 mg/L (0.76-1.76)
== END 2024-09-22 14:05 | disposition home or self-care (01) ==
LOC: ANHLAB 14:05
PROVIDERS: PCP Family Medicine; Visit Provider Internal Medicine Hematology & Oncology
DX: D64.9 Anemia, unspecified (principal)
CPT/HCPCS: 36415; 80053; 82607; 82728; 82746; 83540; 83550; 83921; 84238; 85025; 85046

== ENCOUNTER 2024-12-18 10:31 | Outpatient (CLI) | payer OTHER, SELFPAY ==
[2024-12-18 11:32] LABS: Albumin Level 4.3 g/dL (3.5-5.1); Anion Gap 14 mmol/L (4-12); Blood Urea Nitrogen 46 mg/dL (7-17); Calcium 9.1 mg/dL (8.4-10.2); Carbon Dioxide 18 mmol/L (22-30); Chloride 103 mmol/L (98-107); Estimated Glomerular Filt Rate 14; Glucose 136 mg/dL (65-110); Phosphorus 5.9 mg/dL (2.5-4.5); Potassium 4.5 mmol/L (3.4-5.0); Sodium 135 mmol/L (137-145)
[2024-12-18 11:45] LABS: Creatinine Urine 18.2 mg/dL; Total Protein Urine Random 59 mg/dL; Ur Ttl Prot Creatinine Ratio 3.24 mg/mg (0-0.20)
--- OUTSIDE RECORDS SUMMARY | 2024-12-18 12:18 | XMS_ITS | Clinical Summary ---
Author Organization [facility] Address [address] [address] Phone Care Team Providers Care Restaurant Kitchen Manager Name Role Phone Chase Leigh MD Primary Care Provider Allergies Active Allergy Reactions Criticality Noted Date Comments Povidone Iodine Hives,Rash Medium (surgical scrub) Iodinated Contrast Media Hives,Rash Medium Medications Glucose Blood (PHARMACIST CHOICE NO CODING) Strip Test blood glucose daily ICD10 E11.9 NIDDM 50 Each 6 6 Active lisinopril (PRINIVIL, ZESTRIL) 20 MG Tablet Take 20 mg by mouth daily. Active atorvastatin (LIPITOR) 40 MG Tablet Take 40 mg by mouth daily. Active traZODone (DESYREL) 50 MG Tablet Take 150 mg by mouth nightly. Active glimepiride (AMARYL) 4 MG Tablet Take 4 mg by mouth every morning. Active omeprazole (PRILOSEC) 40 MG CAPSULE DELAYED RELEASE Take 40 mg by mouth daily. Active insulin glargine (LANTUS) 100 UNIT/ML SolutionIndicat ions:40 units BID by Subcutaneous route every evening. Active DULoxetine (CYMBALTA) [address] Particles Take 60 mg by mouth daily. Active umeclidinium-vi lanterol (ANORO ELLIPTA) 62.5-25 MCG/INH AEROSOL POWDER, BREATH ACTIVATED take 1 Puff by inhalation daily. Active buPROPion SR (WELLBUTRIN SR) 150 MG TABLET SR 12 HR Take 150 mg by mouth 2 times daily. Active Brexpiprazole (REXULTI) 1 MG Tablet Take 4 mg by mouth daily. Active fenofibrate 160 MG Tablet Take 160 mg by mouth daily. Active Magnesium Oxide 400 MG Capsule Take 400 mg by mouth. Active potassium chloride CR (KLORCON) 10 MEQ Tablet Controlled Release Take 10 mEq by mouth daily. Active famotidine (PEPCID) 20 MG TabletIndicatio ns:Gastroesopha geal reflux disease without esophagitis Take 1 Tab by mouth 2 times daily. 90 Tab 9 Active Active Problems Problem Noted Date Diagnosed Date Diabetic neuropathy 06/30/2016 De Quervain's disease (tenosynovitis) 06/30/2016 Arthritis 10/25/2015 Depression 10/25/2015 Hyperlipidemia 10/25/2015 DM2 (diabetes mellitus, type 2) 10/25/2015 Chronic rhinitis Overview (06/12/2015): PNAR Deviated nasal septum Overview (06/12/2015): (acquired) Nasal turbinate hypertrophy Tonsillar hypertrophy Iron metabolism disorder RLS (restless legs syndrome) MILIND (obstructive sleep apnea) Periodic limb movement sleep disorder Overview (06/12/2015): organic Immunizations Immunization Administration Dates Next Due TD VACCINE 09/27/2007 Family History Medical History Relation Name Comments Arrhythmia Brother Colon Cancer Father No Known Problems Mother Relation Name Status Comments Brother Alive Father Mother Social History Tobacco Use Types Packs/Day Years Used Date Smoking Tobacco: Every Day Cigarettes 1.5 30 Smokeless Tobacco: Never Tobacco Cessation:Ready to Q uit: Yes; Counseling Given: Yes Alcohol Use Standard Drinks/Week Comments No 0 (1 standard drink = 0.6 oz pur e alcohol) PHQ-2 Answer Date Recorded PHQ-2 Score 0 07/13/2019 Comments No Sex and Gender Information Value Date Recorded Sex Assigned at Not on file Legal Sex Female 10:20 PM CDT Gender Identity Not on file Sexual Orientation Not on file Occupation Industry Job Start Date Job End Date unemployed Not on file Not on file Not on file Last Filed Vital Signs Vital Sign Reading Time Taken Comments Blood Pressure 117/74 07/13/2019 8:11 AM CDT Pulse 78 07/13/2019 8:11 AM CDT Temperature 36 C (96.8 F) 07/13/2019 8:11 AM CDT Respiratory Rate 18 07/13/2019 8:11 AM CDT Oxygen Saturation 100% 07/13/2019 8:11 AM CDT Inhaled Oxygen Concentration - - Weight 86.2 kg (190 lb) 07/07/2019 10:15 AM CDT Height 175.3 cm (5' 9 ) 07/07/2019 10:15 AM CDT Body Mass Index 28.06 07/07/2019 10:15 AM CDT Plan of Treatment Health Maintenance Due Date Last Done Comments Diabetes: Eye Exam 1967 Diabetes: Foot Exam 1967 Hepatitis C Virus (HCV) Screening 1967 TdaP Immunization 1967 Hepatitis B Immunization (1 of 3 - 19+ 3-dose series) 1986 Pneumococcal Immunization (5 0+ years) (1 of 2 - PCV) 1986 Diabetes: Hemoglobin A1c 04/27/2016 016, 08/27/2015 Diabetes: Nephropathy Screening 10/28/2016 10/28/2015 Cologuard 2017 Immunochemical Fecal Occult Blood 2017 Zoster Immunization (1 of 2) 2017 Colonoscopy 07/07/2020 07/07/2019, 07/06/2019, 05/08/2015 Colorectal Cancer Screening 07/07/2020 Influenza Immunization (#1) 2024 SARS-COV-2 Immunization ( season) 2024 Respiratory Syncytial Virus (RSV) Immunization (Adult) (1 - 1-dose 75+ series) 2042 07/07/2019, 07/06/2019, 05/08/2015 Meningococcal Immunization (ACWY) Aged Out No longer eligible b ased on patient's age to complete this topic Rotavirus Immunization Aged Out No lo nger eligible based on patient's age to complete this topic Procedures Procedure Name Priority Date/Time Associated Diagnosis Comments CMP (COMPREHENSIVE METABOLIC PANEL) Today 10/28/2015 1:20 PM COMMUNICATIONS OFFICER Type 2 diabetes mellitus without complication (HCC) HEMOGLOBIN A1C W/ ESTIMATED GLUCOSE Routine 10/28/2015 1:20 PM COMMUNICATIONS OFFICER Type 2 diabetes mellitus without complication (HCC) HM COLONOSCOPY Routine 05/08/2015 from Last 3 Months or Most Recently Relevant to Health Maintenance Results * HEMOGLOBIN A1C W/ ESTIMATED GLUCOSE (10/28/2015 1:20 PM COMMUNICATIONS OFFICER) HGB-A1C 6.3 4.4 - 6.4 % 10/28/2015 4:15 PM COMMUNICATIONS OFFICER [facility] Est Average Glucose 134.1 mg/dL 10/28/2015 4:15 PM COMMUNICATIONS OFFICER [facility] Blood specimen (specimen) Venipuncture / Unknown 10/28/2015 1:20 PM COMMUNICATIONS OFFICER 10/28/2015 1:24 PM COMMUNICATIONS OFFICER Narrative [facility] - 10/28/2015 4:15 PM COMMUNICATIONS OFFICER HEMOGLOBIN A1C: DIABETIC PATIENTS: WELL-CONTROLLED: 6.2 - 7.0 INTERMEDIATE WELL-CONTROLLED: 7.0 - 9.0 POORLY-CONTROLLED: >9.0 us Mart Harris MD CHEMISTRY ORDERABLES Smita rasmussen Result [facility] [address] [place] [address] * (ABNORMAL) CMP (COMPREHENSIVE METABOLIC PANEL) (10/28/2015 1:20 PM COMMUNICATIONS OFFICER) Pathologist [facility] SODIUM 138 131 - 143 mmol/L 10/28/2015 4:28 PM COMMUNICATIONS OFFICER [facility] POTASSIUM 4.0 3.5 - 5.1 mmol/L 10/28/2015 4:28 PM COMMUNICATIONS OFFICER [facility] CHLORIDE 99(L) 100 - 110 mmol/L 10/28/2015 4:28 PM [facility] CO2, VENOUS 27 22 - 32 mmol/L 10/28/2015 4:28 PM COMMUNICATIONS OFFICER [facility] ANION GAP 16.0 8.0 - 20.0 mmol/L 10/28/2015 4:28 PM COMMUNICATIONS OFFICER [facility] GLUCOSE 117(H) 70 - 105 mg/dL 10/28/2015 4:28 PM [facility] BUN 7(L) 10 - 31 mg/dL 10/28/2015 4:28 PM [facility] CREATININE, BLOOD 0.60 0.60 - 1.30 mg/dL 10/28/2015 4:28 PM [facility] BUN/CREATININE RATIO 12 12 - 20 ratio 10/28/2015 4:28 PM [facility] TOTAL PROTEIN 7.6 6.0 - 8.3 g/dL 10/28/2015 4:28 PM [facility] ALBUMIN 4.4 3.5 - 5.2 g/dL 10/28/2015 4:28 PM [facility] A/G RATIO 1.4 1.0 - 2.0 10/28/2015 4:28 PM [facility] CALCIUM 9.7 8.9 - 10.3 mg/dL 10/28/2015 4:28 PM [facility] T BILI 0.5 0.3 - 1.2 mg/dL 10/28/2015 4:28 PM [facility] SGOT (AST) 25 1 - 32 U/L 10/28/2015 4:28 PM [facility] SGPT (ALT) 19 1 - 33 U/L 10/28/2015 4:28 PM [facility] ALKALINE PHOSPHATASE 98 35 - 105 U/L 10/28/2015 4:28 PM [facility] GFR, EST. NONAFRICAN >60 >=60 10/28/2015 4:28 PM [facility] GFR, EST. >60 >=60 10/28/2015 4:28 PM [facility] Comment: Creatinine Clearance is the preferred criteria for selecting drug dose adjustments in renally impaired patients. The GFR is provided as additional pertinent clinical information. GFR is reported in mL/min/1.73 sq m. Blood specimen (specimen) Venipuncture / Unknown 10/28/2015 1:20 PM COMMUNICATIONS OFFICER 10/28/2015 1:24 PM COMMUNICATIONS OFFICER us Mart M Steven MD CHEMISTRY ORDERABLES Smita rasmussen Result [facility] [address] [place] [address] * HM COLONOSCOPY (05/08/2015) us Yuan Bates MD PROCEDURE/MINOR SURGICAL ORDERAB LES Final Result from Last 3 Months or Most Recently Relevant to Health Maintenance Insurance MEDICARE C [employer] Care Teams Restaurant Kitchen Manager Relationship Specialty Start Date End Date Chase Leigh MD [address] [place] [id number] PCP - General Family Medicine 02/03/18
--- OUTSIDE RECORDS SUMMARY | 2024-12-18 12:18 | XMS_ITS ---
Author Organization [facility] [email or web address] Address [address] [place] [address] Care Team Providers Care Assistant Executive Housekeeper Name Role Phone Susana VILLALTA, Federico Primary Care Provider UnavailGary Madrigal Unavailable [phone] Allergies Allergen (clinical drug ingredient) Drug/Non Drug Allergy documented on EMR Reaction Allergy Type Onset Date Status povidone-iodine Betadine Unknown Drug Allergy 12/02/2023 Active ceftriaxone Ceftriaxone Unknown Drug Allergy 12/02/2023 Ac tive REASON FOR VISIT Follow up visit Medications Medication SIG (Take, Route, Frequency, Duration) Notes Start Date End Date Status Tresiba FlexTouch 200 UNIT/ML Subcutaneous 12/02/2023 Active FREESTYLE KAITLIN 2 SENSOR KIT *Reorder from [facility] for eRx and Interaction Alerts* 12/02/2023 Active HUMALOG KWIKPEN U-200 200 unit/mL (3 mL) Subcutaneous *Reorder from [facility] for eRx and Interaction Alerts* 12/02/2023 Active OneTouch Ultra In Vitro 12/02/2023 Acti ve Clobetasol Propionate 0.05% External 12/02/2023 Active HYDROcodone-Acetamino phen 5-325 MG Oral 12/02/2023 Active GaviLyte-G 236 GM Oral *[facility] and Interaction Alert[facility]* 12/02/2023 Active Metoclopramide HCl 5 MG Oral 12/02/2023 Active MICONAZOLE 7 2% CRE *Reorder fro [facility] for eRx and Interaction Alerts* 12/02/2023 Active SSD 1 % External 12/02/2023 Active PEN NEEDLE, DIABETIC 31 GAUGE X 15/64 *Reorder from [facility] for eRx and Interaction Alerts* 12/02/2023 Active DEXCOM G7 SENSOR DEVICE *Reorder from [facility] for eRx and Interaction Alerts* 12/02/2023 Active BAQSIMI 3 MG/ACTUATION NASAL SPRAY *Reorder from [facility] for eRx and Interaction Alerts* 12/02/2023 Active Triamcinolone Acetonide 0.1% External 12/02/2023 Active Furosemide 20 MG Oral 12/02/2023 Ac tive TRUEPLUS PEN NEEDLE 31 gauge x 16 MISCELLANEOUS *Reorder from [facility] for eRx and Interaction Alerts* 12/02/2023 Active Gabapentin 300 MG Oral 12/02/2023 A ctive Dexcom G7 Area Safety Manager 12/02/2023 Active Ondansetron HCl 4 MG Oral 12/02/2023 Active HumaLOG KwikPen 100 UNIT/ML Subcutaneous 12/02/2023 Active hydrALAZINE HCl 25 MG Oral 12/02/2023 Active Ketoconazole 2% External 12/02/2023 Act aldair traZODone HCl 150 MG 1 tablet at bedtime Oral Once a day for 30 days As needed Active Sertraline HCl 100 MG 1 tablet Oral Once a day for 30 days Active Atorvastatin Calcium 10 MG Oral 12/02/2023 Active Rexulti 2 mg 1 tablet Oral once a day for 30 days Active buPROPion HCl ER (XL) 300 MG 1 tablet in the morning Oral Once a day for 30 days Active Nystatin-Triamcinolon e 712199-3.1 UNIT/GM External 12/02/2023 Active Clobetasol Propionate 0.05 % External 12/02/2023 Active Pantoprazole Sodium 40 MG Oral 12/02/2023 Active ULTRA-FINE MICRO PEN NEEDLE 32 gauge x 1/4 MISCELLANEOUS *Reorder from [facility] for eRx and Interaction Alerts* 12/02/2023 Active Dificid 200 mg Oral 12/02/2023 Acti ve PEN NEEDLE 31 gauge x 14 MISCELLANEOUS *Reorder from [facility] for eRx and Interaction Alerts* 12/02/2023 Active ProAir HFA 108 (90 Base) MCG/ACT Inhalation 12/02/2023 Active Mupirocin 2% External 12/02/2023 Active Social History Sex Assigned At : Social History Observation Description Sex Assigned At Female Problems Problem Type SNOMED Code ICD Code Onset Dates Problem Status W/U Status Risk Notes Problem Severe recurrent major depression without psychotic features (34824919) Major depressive disorder, recurrent severe without psychotic features (F33.2) 3 Active confirmed Problem Generalized anxiety disorder (23571154) Generalized anxiety disorder (F41.1) 4 Active confirmed Problem Insomnia (050109469) Other insomnia (G47.09) 4 Active confirmed Problem Chronic kidney disease stage 4 (386115279) Chronic kidney disease, stage 4 (severe) (N18.4) 4 Active confirmed Vital Signs Blood pressure systolic 114 mm Hg 05/11/20 24 Blood pressure diastolic 67 mm Hg 024 Heart Rate 80 /min 05/11/2024 Height 68.00 in 05/11/2024 Weight 180.0 lbs 05/11/2024 BMI 27.37 kg/m2 05/11/2024 Height-cm 172.72 cm 05/11/2024 Weight-kg 81.65 kg 05/11/2024 Encounters Encounter Location Date Provider Diagnosis [facility] [address] 05/11/2024 Gary Dominguez Major depressive disorder, recurrent severe without psychotic features F33.2 ; Generalized anxiety disorder F41.1 ; Other insomnia G47.09 ; Chronic kidney disease, stage 4 (severe) N18.4 and Hypokalemia E87.6 Assessments Encounter Date Diagnosis (ICD Code) Assessment Notes Treatment Notes Treatment Clinical Notes Section Notes 05/11/2024 Major depressive disorder, recurrent severe without psychotic features (ICD-10 - F33.2) recommend counseling cont bupropion er 300mg, rexulti 2mg daily, sertraline 100mg daily 1. Major Depressive Disorder: - Patient reports stable day-to-day symptoms with occasional emotional moments. - Continue Bupropion XL 300 mg daily, Rexulti 2 mg daily, and Sertraline 100 mg daily. Plan: - Monitor for any changes in mood or depressive symptoms. 2. Anxiety: - Patient experiences variable anxiety levels, with recent surgery contributing to increased anxiety. - Continue Alprazolam as needed for anxiety. Plan: - Encourage patient to utilize non-pharmacological coping strategies for anxiety management. 3. Insomnia: - Patient reports generally adequate sleep, with recent surgery causing sleep disturbance. - Continue Trazodone 150 mg at bedtime. Plan: - Monitor sleep quality and consider adjustments to medication if needed. 4. Post-surgical pain (carpal tunnel surgery): - Patient reports pain after surgery, managed with Tylenol and Tramadol. Plan: - Continue Tylenol as needed for pain relief. - Allow Tramadol for breakthrough pain if necessary. - Encourage patient to avoid overexertion of the affected arm. 5. Nausea: - Patient taking Zofran 4 mg once daily. Plan: - Continue Zofran as needed for nausea management. - Monitor for any changes in nausea frequency or severity. 6. Medication management: - Patient uses a seven-day pill container to organize medications. Plan: - Review and confirm medication list, including atorvastatin, trazodone, furosemide, pantoprazole, bupropion, hydralazine, sertraline, and Rexulti. - Encourage patient to maintain adherence to medications and report any side effects or concerns. 7. Diet and gastrointestinal issues: - Patient reports avoiding certain foods due to stomach upset. Plan: - Encourage patient to maintain a balanced diet and monitor for any changes in gastrointestinal symptoms. - Consider referral to a travel consultant if dietary restrictions continue to impact the patient's quality of life. Follow-up: - Schedule a three-month follow-up appointment to assess the patient's progress and address any concerns. 05/11/2024 Generalized anxiety disorder (ICD-10 - F41.1) 1. Major Depressive Disorder: - Patient reports stable day-to-day symptoms with occasional emotional moments. - Continue Bupropion XL 300 mg daily, Rexulti 2 mg daily, and Sertraline 100 mg daily. Plan: - Monitor for any changes in mood or depressive symptoms. 2. Anxiety: - Patient experiences variable anxiety levels, with recent surgery contributing to increased anxiety. - Continue Alprazolam as needed for anxiety. Plan: - Encourage patient to utilize non-pharmacological coping strategies for anxiety management. 3. Insomnia: - Patient reports generally adequate sleep, with recent surgery causing sleep disturbance. - Continue Trazodone 150 mg at bedtime. Plan: - Monitor sleep quality and consider adjustments to medication if needed. 4. Post-surgical pain (carpal tunnel surgery): - Patient reports pain after surgery, managed with Tylenol and Tramadol. Plan: - Continue Tylenol as needed for pain relief. - Allow Tramadol for breakthrough pain if necessary. - Encourage patient to avoid overexertion of the affected arm. 5. Nausea: - Patient taking Zofran 4 mg once daily. Plan: - Continue Zofran as needed for nausea management. - Monitor for any changes in nausea frequency or severity. 6. Medication management: - Patient uses a seven-day pill container to organize medications. Plan: - Review and confirm medication list, including atorvastatin, trazodone, furosemide, pantoprazole, bupropion, hydralazine, sertraline, and Rexulti. - Encourage patient to maintain adherence to medications and report any side effects or concerns. 7. Diet and gastrointestinal issues: - Patient reports avoiding certain foods due to stomach upset. Plan: - Encourage patient to maintain a balanced diet and monitor for any changes in gastrointestinal symptoms. - Consider referral to a travel consultant if dietary restrictions continue to impact the patient's quality of life. Follow-up: - Schedule a three-month follow-up appointment to assess the patient's progress and address any concerns. 05/11/2024 Other insomnia (ICD-10 - G47.09) cont trazodone 150mg hs 1. Major Depressive Disorder: - Patient reports stable day-to-day symptoms with occasional emotional moments. - Continue Bupropion XL 300 mg daily, Rexulti 2 mg daily, and Sertraline 100 mg daily. Plan: - Monitor for any changes in mood or depressive symptoms. 2. Anxiety: - Patient experiences variable anxiety levels, with recent surgery contributing to increased anxiety. - Continue Alprazolam as needed for anxiety. Plan: - Encourage patient to utilize non-pharmacological coping strategies for anxiety management. 3. Insomnia: - Patient reports generally adequate sleep, with recent surgery causing sleep disturbance. - Continue Trazodone 150 mg at bedtime. Plan: - Monitor sleep quality and consider adjustments to medication if needed. 4. Post-surgical pain (carpal tunnel surgery): - Patient reports pain after surgery, managed with Tylenol and Tramadol. Plan: - Continue Tylenol as needed for pain relief. - Allow Tramadol for breakthrough pain if necessary. - Encourage patient to avoid overexertion of the affected arm. 5. Nausea: - Patient taking Zofran 4 mg once daily. Plan: - Continue Zofran as needed for nausea management. - Monitor for any changes in nausea frequency or severity. 6. Medication management: - Patient uses a seven-day pill container to organize medications. Plan: - Review and confirm medication list, including atorvastatin, trazodone, furosemide, pantoprazole, bupropion, hydralazine, sertraline, and Rexulti. - Encourage patient to maintain adherence to medications and report any side effects or concerns. 7. Diet and gastrointestinal issues: - Patient reports avoiding certain foods due to stomach upset. Plan: - Encourage patient to maintain a balanced diet and monitor for any changes in gastrointestinal symptoms. - Consider referral to a travel consultant if dietary restrictions continue to impact the patient's quality of life. Follow-up: - Schedule a three-month follow-up appointment to assess the patient's progress and address any concerns. 05/11/2024 Chronic kidney disease, stage 4 (severe) (ICD-10 - N18.4) 1. Major Depressive Disorder: - Patient reports stable day-to-day symptoms with occasional emotional moments. - Continue Bupropion XL 300 mg daily, Rexulti 2 mg daily, and Sertraline 100 mg daily. Plan: - Monitor for any changes in mood or depressive symptoms. 2. Anxiety: - Patient experiences variable anxiety levels, with recent surgery contributing to increased anxiety. - Continue Alprazolam as needed for anxiety. Plan: - Encourage patient to utilize non-pharmacological coping strategies for anxiety management. 3. Insomnia: - Patient reports generally adequate sleep, with recent surgery causing sleep disturbance. - Continue Trazodone 150 mg at bedtime. Plan: - Monitor sleep quality and consider adjustments to medication if needed. 4. Post-surgical pain (carpal tunnel surgery): - Patient reports pain after surgery, managed with Tylenol and Tramadol. Plan: - Continue Tylenol as needed for pain relief. - Allow Tramadol for breakthrough pain if necessary. - Encourage patient to avoid overexertion of the affected arm. 5. Nausea: - Patient taking Zofran 4 mg once daily. Plan: - Continue Zofran as needed for nausea management. - Monitor for any changes in nausea frequency or severity. 6. Medication management: - Patient uses a seven-day pill container to organize medications. Plan: - Review and confirm medication list, including atorvastatin, trazodone, furosemide, pantoprazole, bupropion, hydralazine, sertraline, and Rexulti. - Encourage patient to maintain adherence to medications and report any side effects or concerns. 7. Diet and gastrointestinal issues: - Patient reports avoiding certain foods due to stomach upset. Plan: - Encourage patient to maintain a balanced diet and monitor for any changes in gastrointestinal symptoms. - Consider referral to a travel consultant if dietary restrictions continue to impact the patient's quality of life. Follow-up: - Schedule a three-month follow-up appointment to assess the patient's progress and address any concerns. 05/11/2024 Hypokalemia (ICD-10 - E87.6) 1. Major Depressive Disorder: - Patient reports stable day-to-day symptoms with occasional emotional moments. - Continue Bupropion XL 300 mg daily, Rexulti 2 mg daily, and Sertraline 100 mg daily. Plan: - Monitor for any changes in mood or depressive symptoms. 2. Anxiety: - Patient experiences variable anxiety levels, with recent surgery contributing to increased anxiety. - Continue Alprazolam as needed for anxiety. Plan: - Encourage patient to utilize non-pharmacological coping strategies for anxiety management. 3. Insomnia: - Patient reports generally adequate sleep, with recent surgery causing sleep disturbance. - Continue Trazodone 150 mg at bedtime. Plan: - Monitor sleep quality and consider adjustments to medication if needed. 4. Post-surgical pain (carpal tunnel surgery): - Patient reports pain after surgery, managed with Tylenol and Tramadol. Plan: - Continue Tylenol as needed for pain relief. - Allow Tramadol for breakthrough pain if necessary. - Encourage patient to avoid overexertion of the affected arm. 5. Nausea: - Patient taking Zofran 4 mg once daily. Plan: - Continue Zofran as needed for nausea management. - Monitor for any changes in nausea frequency or severity. 6. Medication management: - Patient uses a seven-day pill container to organize medications. Plan: - Review and confirm medication list, including atorvastatin, trazodone, furosemide, pantoprazole, bupropion, hydralazine, sertraline, and Rexulti. - Encourage patient to maintain adherence to medications and report any side effects or concerns. 7. Diet and gastrointestinal issues: - Patient reports avoiding certain foods due to stomach upset. Plan: - Encourage patient to maintain a balanced diet and monitor for any changes in gastrointestinal symptoms. - Consider referral to a travel consultant if dietary restrictions continue to impact the patient's quality of life. Follow-up: - Schedule a three-month follow-up appointment to assess the patient's progress and address any concerns. Plan Of Treatment Medication Medication Name Sig Start Date Stop Date Notes traZODone HCl 150 MG 1 tablet at bedtime Oral Once a day for 30 days Sertraline HCl 100 MG 1 tablet Oral Once a day for 30 days Rexulti 2 mg 1 tablet Oral once a day for 30 days buPROPion HCl ER (XL) 300 MG 1 tablet in the morning Oral Once a day for 30 days Treatment Notes Assessment Notes Major depressive disorder, r ecurrent severe without psychotic features recommend counseling cont bupropion er 300mg, rexulti 2mg daily, sertraline 100mg daily Other insomnia cont trazodone 150mg hs Next Appt Details Follow Up: 3 Months, Reason: f/u depression, anxiety Provider Name:Gary rushing, 02/05/2025 11:15:00 AM, [facility] [address] [facility] [address], [place], [address], Progress Notes * MARY NARGIS LDOB: [birth year] (59 yo F)Acc No.[id number]:05/11/2024 Patient: NARGIS SABA Provider: ERIK ARROYO :1965 A ge:59 Y S ex:Female Date:05/11/2024 Address:[address] [place] [address] Pcp:SAIMA GREEN MD Subjective: * Chief Complaints: * 1 . Follow up visit. * HPI: D epression screening: Chief complaint - Tiredness, post-surgical pain following carpal tunnel surgery. the note is transcribed using speech recognition software. It is a reflection of a visit with the patient. It might have some inaccuracy, including medication names and transcribing errors, though efforts have been made to correct them. The patient reports feeling tired and experiencing pain after undergoing carpal tunnel surgery on her elbow and hand. While her depression symptoms have improved, she still experiences occasional crying fits and has been missing her mother lately. Her anxiety levels fluctuate, with some days being better than others. She was anxious about the surgery and is currently anxious about her returning to work. Due to gastrointestinal issues caused by artificial flavorings, the patient has had to eliminate several foods from her diet. She is facing difficulty finding suitable alternatives for flavored water. Her sleep has been affected by the recent surgery, but she typically goes to bed around 9 PM, wakes up once or twice during the night, and is up for the day between 4 and 6 AM. She takes Trazodone 150 mg at bedtime for insomnia. The patient expresses concern about her daughter's [id number], who has terminal cancer and is undergoing chemotherapy. She has been checking in on her and is worried about the impact of the chemo on her mental state. Financial concerns are also mentioned as a source of stress. Regarding her medications, the patient uses a seven-day pill container to organize them and reports no issues with missed doses or side effects. She confirms taking Zofran, atorvastatin, trazodone, furosemide, pantoprazole, bupropion, hydralazine, sertraline, and Rexulti, but is unsure about some of her other medications. PHQ-9 L ittle interest or pleasure in doing things S everal days. D epression Screening: MARIA R-7 (2018 Edition) F eeling nervous, anxious, or on edge?Several days, N ot being able to stop or control worrying S everal days, T rouble relaxing S everal days, B eing so restless that it is hard to sit still S everal days, Becoming easily annoyed or irritable S everal days, F eeling afraid as if something awful might happen N ot at all, T otal MARIA R-7 Score 5 , I f you checked any problems, how difficult have they made it for you to do your work, take care of things at home, or get along with other people? S omewhat difficult, I nterpretation of Total ( 5 to 9) Mild. C [place]-Suicide Severity Rating Scale: Suicide Risk (CSRS-screener) i n the past one month Have you wished you were or wished you could go to sleep and not wake up? N o, i n the past one month Have you actually had any thoughts of killing yourself? N o. H istory of Presenting Problem: Anxiety p ersistent. D epression p ersistent. States she is angry all the time, stressed all the time. She wants to learn how to drive again. States she has never got to be her, doesn't know what that is, has been a mother, sister, . Talks about having to stick up for her brother, and her parents blaming her for everything. She feels not valued.. P sychotherapy with Med eval: Therapy with Med eval P sychotherapy with Medication management Y es, P sychotherapy done Time Spent Minute 1 6 Min, T ype of therapy done S upportive Therapy. * Medical History: P jann: Chronic hypokalemia, Chronic kidney disease stage 4, Disease related peripheral neuropathy, Generalized anxiety disorder, Long-term current use of drug therapy, Mild recurrent major depression, Persistent insomnia, Primary insomnia, Severe recurrent major depression, ,, Imported from [employer]: The patient had multiple encounters with healthcare providers from February to March 2024. The patient was hospitalized on March 24, 2024, under the care of Dr. Julisa Sen at [facility]. The primary issues identified during the hospitalization were acute renal failure, dehydration, diarrhea of presumed infectious origin, hypokalemia, metabolic acidosis, and urinary tract infection with pyuria. The patient also had a condition of C. difficile diarrhea. Post-discharge, the patient received home care visits from several registered nurses from [facility], including Kaley Lobo, Ember Murdock, and Shreyas Larry. The patient also had follow-up phone calls with Gianna Nash from [facility] on April 03, 2024. The patient's medication orders were managed by pharmacists Benny Sauer and Flroesita Dutton from [facility]., Imported from [employer]: Urinalysis: (Performed on 2024-03-03) Significant findings include Urine WBC >100 /hpf, Urine Leukocyte Esterase 3+ ERNESTO/UL, Urine Bacteria 4+ /hpf, and Urine Nitrate Positive. Basic Metabolic Panel: (Performed on 2024-03-25) Abnormal results include CO2 at 12 mmol/L (Low), Potassium at 2.4 mmol/L (Low), Creatinine at 2.60 mg/dL (High), and Calcium at 7.9 mg/dL (Low). Blood Culture: (Performed on 2024-03-29) No growth was reported in the blood cultures. Blood Gas, Arterial: (Performed on 2024-03-28) Abnormal results include HCO3 Art (Calculated) at 12 mmol/L (Low), PCO2, Arterial at 25 (Low), pH, Art at 7.32 (Low), and O2 Sat Art (Measured) at 98% (High). C. Difficile Testing: (Performed on 2024-03-24) Positive for C. diff result and Toxin Result. CBC with Auto Differential: (Performed on 2024-03-24, 2024-03-25, 2024-03-26, 2024-03-27, 2024-03-28, 2024-03-29) Consistently low results for Hgb, RBC, and Hct. High results for WBC. Comprehensive Metabolic Panel: (Performed on 2024-03-24) Abnormal results include CO2 at 12 mmol/L (Low), Sodium at 135 mmol/L (Low), Potassium at 2.4 mmol/L (Low), Creatinine at 2.60 mg/dL (High), and Calcium at 7.9 mg/dL (Low). CT Abdomen Pelvis WO Contrast: (Performed on 2024-03-24) Findings include mild circumferential thickening of the urinary bladder wall which could be due to incomplete distension. Cystitis remains a possibility in the appropriate clinical setting. No CT evidence of acute colitis. Normal appendix. Renal Function Panel: (Performed on 2024-03-24, 2024-03-25, 2024-03-26, 2024-03-27, 2024-03-28, 2024-03-29) Consistently low results for eGFR. Pro B-type Natriuretic Peptide: (Performed on 2024-03-24) NT-proBNP at 329 pg/mL (High). Urine Culture: (Performed on 2024-03-03) Positive for Escherichia Coli and Group B Streptococcus. XR Abdomen Ap 1 Vw: (Performed on 2024-03-28) No radiographic evidence of acute abdominopelvic process. Please reference recent abdominopelvic CT imaging for further evaluation.. * Surgical History: A ny surgical history , Breast surgery () , Other . * Family History: U nspecified Relation: Bipolar disorder , Family history of sudden cardiac . M aternal Grandfather: Family history of sudden cardiac . * Social History: M igrated Social History: M igrated Social History: Alcohol Intake: None 07/08/2018,Tobacco Years: Current every day smoker 05/04/2019. * Medications: T aking buPROPion HCl ER (XL) 300 MG Tablet Extended Release 24 Hour 1 tablet in the morning Oral Once a day , Taking Rexulti 2 mg Tablet 1 tablet Oral once a day , Taking Sertraline HCl 100 MG Tablet 1 tablet Oral Once a day , Taking traZODone HCl 150 MG Tablet 1 tablet at bedtime Oral Once a day As needed, Taking Mupirocin 2% Ointment External , Taking ProAir HFA 108 (90 Base) MCG/ACT Aerosol Solution Inhalation , Taking Dificid 200 mg Tablet Oral , Taking ULTRA-FINE MICRO PEN NEEDLE 32 gauge x 1/4 NEEDLE, DISPOSABLE MISCELLANEOUS , Notes to Pharmacist: *Reorder from [employer] for eRx and Interaction Alerts*, Taking PEN NEEDLE 31 gauge x 1/4 NEEDLE, DISPOSABLE MISCELLANEOUS , Notes to Pharmacist: [facility] Taking Clobetasol Propionate 0.05 % Ointment External , Taking Nystatin-Triamcinolone 259068-0.1 UNIT/GM Cream External , Taking Pantoprazole Sodium 40 MG Tablet Delayed Release Oral , Taking Atorvastatin Calcium 10 MG Tablet Oral , Taking Ketoconazole 2% Cream External , Taking hydrALAZINE HCl 25 MG Tablet Oral , Taking HumaLOG KwikPen 100 UNIT/ML Solution Pen-injector Subcutaneous , Taking Ondansetron HCl 4 MG Tablet Oral , Taking Gabapentin 300 MG Capsule Oral , Taking Dexcom G7 Area Safety Manager , Taking Furosemide 20 MG Tablet Oral , Taking TRUEPLUS PEN NEEDLE 31 gauge x 5/16 NEEDLE, DISPOSABLE MISCELLANEOUS , Notes to Pharmacist: *[facility]*, Taking Triamcinolone Acetonide 0.1% Cream External , Taking BAQSIMI 3 MG/ACTUATION NASAL SPRAY , Notes to Pharmacist: *[facility]*, Taking DEXCOM G7 SENSOR DEVICE , Notes to Pharmacist: *Reorder from [facility] for eRx and Interaction Alerts*, Taking PEN NEEDLE, DIABETIC 31 GAUGE X 15/64 , Notes to Pharmacist: *Reorder from [facility] for eRx and Interaction Alerts*, Taking SSD 1 % Cream External , Taking HYDROcodone-Acetaminophen 5-325 MG Tablet Oral , Taking Metoclopramide HCl 5 MG Tablet Oral , Taking GaviLyte-G 236 GM Solution Reconstituted Oral , Notes to Pharmacist: *Reorder from [facility] for eRx and Interaction Alerts*, Taking MICONAZOLE 7 2% CRE , Notes to Pharmacist: *Reorder from [facility] for eRx and Interaction Alerts*, Taking HUMALOG KWIKPEN U-200 200 unit/mL (3 mL) Solution Pen-injector Subcutaneous , Notes to Pharmacist: *Reorder from [facility] for eRx and Interaction Alerts*, Taking Clobetasol Propionate 0.05% Cream External , Taking OneTouch Ultra Strip In Vitro , Taking FREESTYLE KAITLIN 2 SENSOR KIT , Notes to Pharmacist: *Reorder from [facility] for eRx and Interaction Alerts*, Taking Tresiba FlexTouch 200 UNIT/ML Solution Pen-injector Subcutaneous , Discontinued Magnesium Citrate 1.745 GM/30ML Solution Oral , Discontinued Promethazine HCl 25 MG Tablet Oral , Discontinued Buprenorphine 10 mcg/hour Patch Weekly Transdermal , Notes to Pharmacist: *Pick strength-form from [facility] for eRX*, Discontinued ALPRAZolam 0.5 MG Tablet Oral , Discontinued Sulfamethoxazole-Trimethoprim 800-160 MG Tablet Oral , Discontinued predniSONE 10 MG Tablet Oral , Discontinued oxyCODONE-Acetaminophen 5-325 MG Tablet Oral , Discontinued Amoxicillin 500 MG Capsule Oral , Discontinued Vancomycin HCl 125 MG Capsule Oral , Discontinued amLODIPine Besylate 10 MG Tablet Oral * Allergies: B etadine: Allergy - Onset Date 12/02/2023, Ceftriaxone: Allergy - Onset Date 12/02/2023. Objective: * Vitals: B P:114/67mm Hg, HR:80/min, Wt:180.0lbs, Wt-k.65 kg, Ht: 68.00 in, Ht-cm: 172.72 cm, BMI:27.37Index, Body Surface Area: 1.98. * Examination: G eneral Examination: - Mental Status Examination: - Patient reports stable mood with occasional crying spells triggered by emotional stimuli. Expressed feelings of missing family members. Anxiety noted regarding recent surgery and family responsibilities. Sleep disrupted due to recent surgery pain. - Physical Examination: - Recent carpal tunnel surgery noted on the patient's elbow and hand, with reported post-operative pain and difficulty in movement. Patient reports using Tylenol and Tramadol for pain management. - History of UTI and treatment for C. diff with antibiotics at home mentioned. - Patient reports dietary restrictions due to gastrointestinal sensitivity to artificial flavorings. - Diagnostic Test Results and Labs: - Potassium levels previously dropped to 1.5, leading to hospitalization and stabilization during a five-day inpatient stay. No specific dates provided for recent lab values. Assessment: * Assessment: 1. M ajor depressive disorder, recurrent severe without psychotic features - F33.2 (Primary)? 2. G eneralized anxiety disorder - F41.1 3 . O ther insomnia - G47.09 4 . C hronic kidney disease, stage 4 (severe) - N18.4 5 . H ypokalemia - E87.6 1. Major Depressive Disorder :- Patient reports stable day-to-day symptoms with occasional emotional moments.- Continue Bupropion XL 300 mg daily, Rexulti 2 mg daily, and Sertraline 100 mg daily.Plan:- Monitor for any changes in mood or depressive symptoms.2. Anxiety:- Patient experiences variable anxiety levels, with recent surgery contributing to increased anxiety.- Continue Alprazolam as needed for anxiety.Plan:- Encourage patient to utilize non-pharmacological coping strategies for anxiety management.3. Insomnia:- Patient reports generally adequate sleep, with recent surgery causing sleep disturbance.- Continue Trazodone 150 mg at bedtime.Plan:- Monitor sleep quality and consider adjustments to medication if needed.4. Post-surgical pain (carpal tunnel surgery):- Patient reports pain after surgery, managed with Tylenol and Tramadol.Plan:- Continue Tylenol as needed for pain relief.- Allow Tramadol for breakthrough pain if necessary.- Encourage patient to avoid overexertion of the affected arm.5. Nausea:- Patient taking Zofran 4 mg once daily.Plan:- Continue Zofran as needed for nausea management.- Monitor for any changes in nausea frequency or severity.6. Medication management:- Patient uses a seven-day pill container to organize medications.Plan:- Review and confirm medication list, including atorvastatin, trazodone, furosemide, pantoprazole, bupropion, hydralazine, sertraline, and Rexulti.- Encourage patient to maintain adherence to medications and report any side effects or concerns.7. Diet and gastrointestinal issues:- Patient reports avoiding certain foods due to stomach upset.Plan:- Encourage patient to maintain a balanced diet and monitor for any changes in gastrointestinal symptoms.- Consider referral to a travel consultant if dietary restrictions continue to impact the patient's quality of life.Follow-up:- Schedule a three-month follow- up appointment to assess the patient's progress and address any concerns. Plan: * Treatment: 2. O ther insomnia Refill traZODone HCl Tablet, 150 MG, 1 tablet at bedtime, Oral, Once a day As needed, 30 days, 30 Tablet, Refills 3. Notes: cont trazodone 150mg hs * Procedure Codes: 9 0833 PSYCHOTHERAPY W/PATIENT W/E&M SRVCS 30 MIN, G2211 VISIT COMPLEXITY INHERENT TO ONGOING CARE RELATED TO A PATIENT'S SINGLE, SERIOUS CONDITION OR A COMPLEX CONDITION, G2211 VISIT COMPLEXITY INHERENT TO ONGOING CARE RELATED TO A PATIENT'S SINGLE, SERIOUS CONDITION OR A COMPLEX CONDITION, G2211 VISIT COMPLEXITY INHERENT TO ONGOING CARE RELATED TO A PATIENT'S SINGLE, SERIOUS CONDITION OR A COMPLEX CONDITION * Follow Up: 3 Months (Reason: f/u depression, anxiety) * Billing Information: * Visit Code: 18631 OFFICE OUTPATIENT VISIT 25 MINUTES DETAILED HISTORY AND EXAM/MODERATE MEDICAL DECISION MAKING. 91732 OFFICE OUTPATIENT VISIT 25 MINUTES DETAILED HISTORY AND EXAM/MODERATE MEDICAL DECISION MAKING. * Procedure Codes: 58551 PSYCHOTHERAPY W/PATIENT W/E&M SRVCS 30 MIN. G2211 VISIT COMPLEXITY INHERENT TO ONGOING CARE RELATED TO A PATIENT'S SINGLE, SERIOUS CONDITION OR A COMPLEX CONDITION. G2211 VISIT COMPLEXITY INHERENT TO ONGOING CARE RELATED TO A PATIENT'S SINGLE, SERIOUS CONDITION OR A COMPLEX CONDITION. G2211 VISIT COMPLEXITY INHERENT TO ONGOING CARE RELATED TO A PATIENT'S SINGLE, SERIOUS CONDITION OR A COMPLEX CONDITION. * Sign off status: Completed true * Provider: ERIK ARROYO Date: 0 05/11/2024 Generated for Elsa cook/Faxing/eTransmitting on: 0 12/18/2024 12:18 PM CDT History and Physical Notes * HPI (History of Present Illness) Category Sub-Category Detail Notes Category Not es History of Presenting Problem Anxiety persistent Depression persistent. States s he is angry all the time, stressed all the time. She wants to learn how to drive again. States she has never got to be her, doesn't know what that is, has been a mother, sister, . Talks about having to stick up for her brother, and her parents blaming her for everything. She feels not valued. Depression screening PHQ-9 Little inte rest or pleasure in doing things: Several days Depression Screening MARIA R-7 (2018 Edition) Feelin g nervous, anxious, or on edge: Several days Not being able to stop or control worryi ng: Several days Trouble relaxing: Several days Being so restless that it is hard to sit still: Several days Becoming easily annoyed or irritable: Se veral days Feeling afraid as if something awful teresita ht happen: Not at all Total MARIA R-7 Score: 5 If you checked any problems, how difficult have they made it for you to do your work, take care of things at home, or get along with other people?: Somewhat difficult Interpretation of Total: (5 to 9) Mild Psychotherapy with Med eval Therapy with Med alicia l Psychotherapy with Medication management: Yes Psychotherapy done Time Spent Minute: 16 Min Type of therapy done: Supportive Therapy [place]-Suicide Severity Rating Scale Suicide Risk (CSRS-screener) in the past one month Have you wished you were or wished you could go to sleep and not wake up?: No in the past one month Have y ou actually had any thoughts of killing yourself?: No Examination Category Sub-Category Detail Notes Category Not es General Examination - Mental Status Examination: - Patient reports stable mood with occasional crying spells triggered by emotional stimuli. Expressed feelings of missing family members. Anxiety noted regarding recent surgery and family responsibilities. Sleep disrupted due to recent surgery pain. - Physical Examination: - Recent carpal tunnel surgery noted on the patient's elbow and hand, with reported post-operative pain and difficulty in movement. Patient reports using Tylenol and Tramadol for pain management. - History of UTI and treatment for C. diff with antibiotics at home mentioned. - Patient reports dietary restrictions due to gastrointestinal sensitivity to artificial flavorings. - Diagnostic Test Results and Labs: - Potassium levels previously dropped to 1.5, leading to hospitalization and stabilization during a five-day inpatient stay. No specific dates provided for recent lab values.
--- OUTSIDE RECORDS SUMMARY | 2024-12-18 12:19 | XMS_ITS ---
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 Name Role Phone Susana VILLALTA, Federico Primary Care Provider UnavailGary Madrigal Unavailable [phone] Allergies Allergen (clinical drug ingredient) Drug/Non Drug Allergy documented on EMR Reaction Allergy Type Onset Date Status povidone-iodine Betadine Unknown Drug Allergy 12/02/2023 Active ceftriaxone Ceftriaxone Unknown Drug Allergy 12/02/2023 Ac tive REASON FOR VISIT f/u depression, anxiety Medications Medication SIG (Take, Route, Frequency, Duration) Notes Start Date End Date Status buPROPion HCl ER (XL) 300 MG 1 tablet in the morning Oral Once a day for 30 days Active Rexulti 2 mg 1 tablet Oral once a day for 30 days Active Sertraline HCl 100 MG 1 tablet Oral Once a day for 30 days Active Rexulti 2 MG Take 1 tablet by mouth once daily for 90 days for 90 Active traZODone HCl 150 MG 1 tablet at bedtime Oral Once a day for 30 days As needed Active HUMALOG KWIKPEN U-200 200 unit/mL (3 mL) Subcutaneous *Reorder from [employer] for eRx and Interaction Alerts* 12/02/2023 Active OneTouch Ultra In Vitro 12/02/2023 Acti ve FREESTYLE KAITLIN 2 SENSOR KIT *Reorder from [employer] for eRx and Interaction Alerts* 12/02/2023 Active DEXCOM G7 SENSOR DEVICE *Reorder from [employer] for eRx and Interaction Alerts* 12/02/2023 Active PEN NEEDLE, DIABETIC 31 GAUGE X 15/64 *[facility]* 12/02/2023 Active TRUEPLUS PEN NEEDLE 31 gauge x 5/16 MISCELLANEOUS *[facility] and Interaction Alerts* 12/02/2023 Active BAQSIMI 3 MG/ACTUATION NASAL SPRAY *[facility]* 12/02/2023 Active Ondansetron HCl 4 MG Oral 12/02/2023 Active Gabapentin 300 MG Oral 12/02/[address] Dexcom G7 [address] Clerk 12/02/2023 Active Atorvastatin Calcium 10 MG Oral 12/02/2023 Active hydrALAZINE HCl 25 MG Oral 12/02/2023 Active ProAir HFA 108 (90 Base) MCG/ACT Inhalation 12/02/2023 Active ULTRA-FINE MICRO PEN NEEDLE 32 gauge x 1/4 MISCELLANEOUS *[facility] and Interaction Alert[facility]* 12/02/2023 Active PEN NEEDLE 31 gauge x 1/4 MISCELLANEOUS *[facility] and Interaction Alerts* 12/02/2023 Active Social History Tobacco Use: Social History Observation Description Date Details (start date - stop date) Current Smoker NA - NA Sex Assigned At : Social History Observation Description Sex Assigned At Female Tobacco Control (Standard) Question Answer Notes Tobacco use: Current smoker Problems Problem Type SNOMED Code ICD Code Onset Dates Problem Status W/U Status Risk Notes Problem 42084130 Nicotine dependence with current use (F17.200) Active confirmed Vital Signs Blood pressure systolic 146 mm Hg 08/10/20 24 Blood pressure diastolic 71 mm Hg 024 Heart Rate 86 /min 08/10/2024 Height 68.00 in 08/10/2024 Weight 182.2 lbs 08/10/2024 BMI 27.7 kg/m2 08/10/2024 Height-cm 172.72 cm 08/10/2024 Weight-kg 82.64 kg 08/10/2024 Encounters Encounter Location Date Provider Diagnosis [facility] [address] [place] [address] 08/10/2024 Gary Dominguez Major depressive disorder, recurrent severe without psychotic features F33.2 ; Generalized anxiety disorder F41.1 ; Other insomnia G47.09 ; Chronic kidney disease, stage 4 (severe) N18.4 ; Hypokalemia E87.6 and Nicotine dependence with current use F17.200 Assessments Encounter Date Diagnosis (ICD Code) Assessment Notes Treatment Notes Treatment Clinical Notes Section Notes 08/10/2024 Major depressive disorder, recurrent severe without psychotic features (ICD-10 - F33.2) recommend counseling cont bupropion er 300mg, rexulti 2mg daily, sertraline 100mg daily 1. Depression: - Patient reports her mood has been relatively stable with some down days and frustration related to mobility issues. - Currently taking Bupropion 300 mg daily, Rexulti 2 mg daily, and Sertraline 100 mg daily. Plan: - Continue current medications and monitor for any changes in mood. - Schedule a follow-up appointment in 3 months to reassess the patient's mental health status. 2. Insomnia: - Patient reports sleeping well but requires Trazodone 150 mg at bedtime as needed to sleep. Plan: - Continue Trazodone as needed for insomnia. - Encourage the patient to maintain good sleep hygiene. 3. Tobacco use: - Patient continues to smoke approximately one pack of cigarettes per day and has considered quitting. Plan: - Discuss smoking cessation options and provide resources for support. - Encourage the patient to set a quit date. - Consider involving her partner, Fco, in the quitting process to increase the likelihood of success. 08/10/2024 Generalized anxiety disorder (ICD-10 - F41.1) 1. Depression: - Patient reports her mood has been relatively stable with some down days and frustration related to mobility issues. - Currently taking Bupropion 300 mg daily, Rexulti 2 mg daily, and Sertraline 100 mg daily. Plan: - Continue current medications and monitor for any changes in mood. - Schedule a follow-up appointment in 3 months to reassess the patient's mental health status. 2. Insomnia: - Patient reports sleeping well but requires Trazodone 150 mg at bedtime as needed to sleep. Plan: - Continue Trazodone as needed for insomnia. - Encourage the patient to maintain good sleep hygiene. 3. Tobacco use: - Patient continues to smoke approximately one pack of cigarettes per day and has considered quitting. Plan: - Discuss smoking cessation options and provide resources for support. - Encourage the patient to set a quit date. - Consider involving her partner, Fco, in the quitting process to increase the likelihood of success. 08/10/2024 Other insomnia (ICD-10 - G47.09) cont trazodone 150mg hs 1. Depression: - Patient reports her mood has been relatively stable with some down days and frustration related to mobility issues. - Currently taking Bupropion 300 mg daily, Rexulti 2 mg daily, and Sertraline 100 mg daily. Plan: - Continue current medications and monitor for any changes in mood. - Schedule a follow-up appointment in 3 months to reassess the patient's mental health status. 2. Insomnia: - Patient reports sleeping well but requires Trazodone 150 mg at bedtime as needed to sleep. Plan: - Continue Trazodone as needed for insomnia. - Encourage the patient to maintain good sleep hygiene. 3. Tobacco use: - Patient continues to smoke approximately one pack of cigarettes per day and has considered quitting. Plan: - Discuss smoking cessation options and provide resources for support. - Encourage the patient to set a quit date. - Consider involving her partner, Fco, in the quitting process to increase the likelihood of success. 08/10/2024 Chronic kidney disease, stage 4 (severe) (ICD-10 - N18.4) 1. Depression: - Patient reports her mood has been relatively stable with some down days and frustration related to mobility issues. - Currently taking Bupropion 300 mg daily, Rexulti 2 mg daily, and Sertraline 100 mg daily. Plan: - Continue current medications and monitor for any changes in mood. - Schedule a follow-up appointment in 3 months to reassess the patient's mental health status. 2. Insomnia: - Patient reports sleeping well but requires Trazodone 150 mg at bedtime as needed to sleep. Plan: - Continue Trazodone as needed for insomnia. - Encourage the patient to maintain good sleep hygiene. 3. Tobacco use: - Patient continues to smoke approximately one pack of cigarettes per day and has considered quitting. Plan: - Discuss smoking cessation options and provide resources for support. - Encourage the patient to set a quit date. - Consider involving her partner, Fco, in the quitting process to increase the likelihood of success. 08/10/2024 Hypokalemia (ICD-10 - E87.6) 1. Depression: - Patient reports her mood has been relatively stable with some down days and frustration related to mobility issues. - Currently taking Bupropion 300 mg daily, Rexulti 2 mg daily, and Sertraline 100 mg daily. Plan: - Continue current medications and monitor for any changes in mood. - Schedule a follow-up appointment in 3 months to reassess the patient's mental health status. 2. Insomnia: - Patient reports sleeping well but requires Trazodone 150 mg at bedtime as needed to sleep. Plan: - Continue Trazodone as needed for insomnia. - Encourage the patient to maintain good sleep hygiene. 3. Tobacco use: - Patient continues to smoke approximately one pack of cigarettes per day and has considered quitting. Plan: - Discuss smoking cessation options and provide resources for support. - Encourage the patient to set a quit date. - Consider involving her partner, Fco, in the quitting process to increase the likelihood of success. 08/10/2024 Nicotine dependence with current use (ICD-10 - F17.200) smokes about 1 ppd cigarettes, Stopping Smokeless Tobacco Use: Care Instructions material was published, Learning About Benefits of Quitting Smoking material was published, Deciding About Using Medicines To Quit Smoking material was published, Quitting Tobacco: Care Instructions material was published 1. Depression: - Patient reports her mood has been relatively stable with some down days and frustration related to mobility issues. - Currently taking Bupropion 300 mg daily, Rexulti 2 mg daily, and Sertraline 100 mg daily. Plan: - Continue current medications and monitor for any changes in mood. - Schedule a follow-up appointment in 3 months to reassess the patient's mental health status. 2. Insomnia: - Patient reports sleeping well but requires Trazodone 150 mg at bedtime as needed to sleep. Plan: - Continue Trazodone as needed for insomnia. - Encourage the patient to maintain good sleep hygiene. 3. Tobacco use: - Patient continues to smoke approximately one pack of cigarettes per day and has considered quitting. Plan: - Discuss smoking cessation options and provide resources for support. - Encourage the patient to set a quit date. - Consider involving her partner, Fco, in the quitting process to increase the likelihood of success. Plan Of Treatment Medication Medication Name Sig Start Date Stop Date Notes buPROPion HCl ER (XL) 300 MG 1 tablet in the morning Oral Once a day for 30 days Rexulti 2 mg 1 tablet Oral once a day for 30 days Sertraline HCl 100 MG 1 tablet Oral Once a day for 30 days traZODone HCl 150 MG 1 tablet at bedtime Oral Once a day for 30 days Treatment Notes Assessment Notes Major depressive disorder, r ecurrent severe without psychotic features recommend counseling cont bupropion er 300mg, rexulti 2mg daily, sertraline 100mg daily Other insomnia cont trazodone 150mg hs Nicotine dependence with current use smo kes about 1 ppd cigarettes, Stopping Smokeless Tobacco Use: Care Instructions material was published, Learning About Benefits of Quitting Smoking material was published, Deciding About Using Medicines To Quit Smoking material was published, Quitting Tobacco: Care Instructions material was published Next Appt Details Follow Up: 3 Months, Reason: f/u depression, anxiety Provider Name:Gary rushing, 02/05/2025 11:15:00 AM, [address], [facility], [place], [address], Progress Notes * NARGIS HERNANDEZ LDOB: [birth year] (59 yo F)Acc No.[id number]:08/10/2024 Patient: Vanna NARGIS VARGAS Provider: MARINA ARROYOHNP :1965 A ge:59 Y S ex:Female Date:08/10/2024 Address:[address] [place], [place] [id number] Pcp:SAIMA GREEN MD Subjective: * Chief Complaints: * F /u depression, anxiety * HPI: D epression Screening: Chief complaint- Depression, mobility issues. the note is transcribed using speech recognition software. It is a reflection of a visit with the patient. It might have some inaccuracy, including medication names and transcribing errors, though efforts have been made to correct them. The patient reports that her mood has been generally good, with some down days and frustration related to using a cane and walking. She mentions that her has been working long hours, and she has been experiencing some issues with nutrition, occasionally forgetting to eat and being diagnosed as malnourished. The patient has been craving donuts and plans to snack on peanut butter. The patient's sleep has been good, although she wakes up around 2 or 3 AM to urinate and has slept in her wheelchair three times due to fear of falling. She reports that her depression is currently under control. Her current medication regimen includes Bupropion 300 mg daily, Rexulti 2 mg daily, Sertraline 100 mg daily for depression, and Trazodone 150 mg at bedtime as needed for insomnia. She uses a pill process planner for her medications and has recently been prescribed vitamin B12 and potassium supplements. The patient continues to smoke approximately one pack of cigarettes per day and has considered quitting. However, she finds it difficult due to her smoking in front of her. MARIA R-7 (2018 Edition) F eeling nervous, anxious, or on edge?Several days, N ot being able to stop or control worrying S everal days, W orrying too much about different things M ore than hafl the days, T rouble relaxing N ot at all, Being so restless that it is hard to sit still S everal days, B ecoming easily annoyed or irritable S everal , F eeling afraid as if something awful might happen N ot at all, I f you checked any problems, how [...] had any thoughts of killing yourself? N o, H ave you ever done anything, started to do anything, or prepared to do anything to end your life? N o. D epression screening: PHQ-9 L ittle interest or pleasure in doing things N ot at all, F eeling down, depressed, or hopeless N ot at all, T rouble falling or staying asleep, or sleeping too much N ot at all, F eeling tired or having little energy S everal days, P oor appetite or overeating M ore than half the days, F eeling bad about yourself or that you are a failure, or have let yourself or your family down S everal days, T rouble concentrating on things, such as reading the newspaper or watching television ever,?Moving or speaking so slowly that other people could have noticed; or the opposite, being so fidgety or restless that you have been moving around a lot more than usual M ore than half the days, T houghts that you would be better off or of hurting yourself in some way N ot at all, I nterpretation M ild Depression. I ntervention D epression Screening Findings?Joanne Quach ollow-Up for Depression M ental health treatment assessment, Patient follow-up to return when and if necessary, S uicide Risk Assessment Performed 1 10/10/2023 , A dditional Evaluation for Depression P sychiatric interview and evaluation, N vesta of the standardized tool used for adult depression screening: P atient Health Questionnaire (PHQ-9). H istory of Presenting Problem: Anxiety p [...] her for everything. She feels not valued.. * Medical History: * Surgical History: * Hospitalization/Major Diagno stic Procedure: * Social History: T obacco Use: T obacco Control (Standard) T obacco use: C urrent smoker. M igrated Social History: M igrated Social History: Alcohol Intake: None 07/08/2018,Tobacco Years: Current every day smoker 05/04/2019. M iscellaneous: A dvance Care Planning A re you your own decision-maker N o, D o you have Power of Humidifier Attendant for Health or Medical? N o. * Medications: T akingbuPROPion HCl ER (XL) 300 MG Tablet Extended Release 24 Hour 1 tablet in the morning Oral Once a day Sertraline HCl 100 MG Tablet 1 tablet Oral Once a day traZODone HCl 150 MG Tablet 1 tablet at bedtime Oral Once a day As neededProAir HFA 108 (90 Base) MCG/ACT Aerosol Solution Inhalation ULTRA-FINE MICRO PEN NEEDLE 32 gauge x 1/4 NEEDLE, DISPOSABLE MISCELLANEOUS , Notes to Pharmacist: *Reorder from [facility] for eRx and Interaction Alerts*PEN NEEDLE 31 gauge x 1/4 NEEDLE, DISPOSABLE MISCELLANEOUS , Notes to Pharmacist: *Reorder from [facility] for eRx and Interaction Alerts*Atorvastatin Calcium 10 MG Tablet Oral hydrALAZINE HCl 25 MG Tablet Oral Ondansetron HCl 4 MG Tablet Oral Gabapentin 300 MG Capsule Oral Dexcom G7 Circuit Court Clerk TRUEPLUS PEN NEEDLE 31 gauge x 5/16 NEEDLE, DISPOSABLE MISCELLANEOUS , Notes to Pharmacist: *Reorder from [facility] for eRx and Interaction Alerts*BAQSIMI 3 MG/ACTUATION NASAL SPRAY , Notes to Pharmacist: *Reorder from [facility] for eRx and Interaction Alerts*DEXCOM G7 SENSOR DEVICE , Notes to Pharmacist: *Reorder from [facility] for eRx and Interaction Alerts*PEN NEEDLE, DIABETIC 31 GAUGE X 15/64 , Notes to Pharmacist: *Reorder from [facility] for eRx and Interaction Alerts*HUMALOG KWIKPEN U-200 200 unit/mL (3 mL) Solution Pen-injector Subcutaneous , Notes to Pharmacist: *Reorder from [facility] for eRx and Interaction Alerts*[employer] Ultra Strip In Vitro FREESTYLE KAITLIN 2 SENSOR KIT , Notes to Pharmacist: *Reorder from [facility] for eRx and Interaction Alerts*Rexulti 2 MG Tablet Take 1 tablet by mouth once daily for 90 days Taking buPROPion HCl ER (XL) 300 MG Tablet Extended Release 24 Hour 1 tablet in the morning Oral Once a day Taking Sertraline HCl 100 MG Tablet 1 tablet Oral Once a day Taking traZODone HCl 150 MG Tablet 1 tablet at bedtime Oral Once a day As neededTaking ProAir HFA 108 (90 Base) MCG/ACT Aerosol Solution Inhalation Taking ULTRA-FINE MICRO PEN NEEDLE 32 gauge x 1/4 NEEDLE, DISPOSABLE MISCELLANEOUS , Notes to Pharmacist: *Reorder from [facility] for eRx and Interaction Alerts*Taking PEN NEEDLE 31 gauge x 1/4 NEEDLE, DISPOSABLE MISCELLANEOUS , Notes to Pharmacist: *Reorder from [facility] for eRx and Interaction Alerts*Taking Atorvastatin Calcium 10 MG Tablet Oral Taking hydrALAZINE HCl 25 MG Tablet Oral Taking Ondansetron HCl 4 MG Tablet Oral Taking Gabapentin 300 MG Capsule Oral Taking Dexcom G7 Circuit [address] Clerk Taking TRUEPLUS PEN NEEDLE 31 gauge x 5/16 NEEDLE, DISPOSABLE MISCELLANEOUS , Notes to Pharmacist: *Reorder from [facility] for eRx and Interaction Alerts*Taking BAQSIMI 3 MG/ACTUATION NASAL SPRAY , Notes to Pharmacist: *Reorder from [facility] for eRx and Interaction Alerts*Taking DEXCOM G7 SENSOR DEVICE , Notes to Pharmacist: *Reorder from [facility] for eRx and Interaction Alerts*Taking PEN NEEDLE, DIABETIC 31 GAUGE X 15/64 , Notes to Pharmacist: *Reorder from [facility] for eRx and Interaction Alerts*Taking HUMALOG KWIKPEN U-200 200 unit/mL (3 mL) Solution Pen-injector Subcutaneous , Notes to Pharmacist: *Reorder from [facility] for eRx and Interaction Alerts*Taking OneTouch Ultra Strip In Vitro Taking FREESTYLE KAITLIN 2 SENSOR KIT , Notes to Pharmacist: *Reorder from [facility] for eRx and Interaction Alerts*Taking Rexulti 2 MG Tablet Take 1 tablet by mouth once daily for 90 days DiscontinuedMupirocin 2% Ointment External Dificid 200 mg Tablet Oral Clobetasol Propionate 0.05 % Ointment External Nystatin-Triamcinolone 486413-3.1 UNIT/GM Cream External Pantoprazole Sodium 40 MG Tablet Delayed Release Oral Ketoconazole 2% Cream External [employer] KwikPen 100 UNIT/ML Solution Pen-injector Subcutaneous Furosemide 20 MG Tablet Oral Triamcinolone Acetonide 0.1% Cream External SSD 1 % Cream External HYDROcodone-Acetaminophen 5-325 MG Tablet Oral Metoclopramide HCl 5 MG Tablet Oral GaviLyte-G 236 GM Solution Reconstituted Oral , Notes to Pharmacist: *Reorder from [facility] for eRx and Interaction Alerts*MICONAZOLE 7 2% CRE , Notes to Pharmacist: *Reorder from [facility] for eRx and Interaction Alerts*Clobetasol Propionate 0.05% Cream External [employer] FlexTouch 200 UNIT/ML Solution Pen-injector Subcutaneous Medication List reviewed and reconciled with the patientDiscontinued Mupirocin 2% Ointment External Discontinued Dificid 200 mg Tablet Oral Discontinued Clobetasol Propionate 0.05 % Ointment External Discontinued Nystatin-Triamcinolone 212528- 0.1 UNIT/GM Cream External Discontinued Pantoprazole Sodium 40 MG Tablet Delayed Release Oral Discontinued Ketoconazole 2% Cream External Discontinued [employer] KwikPen 100 UNIT/ML Solution Pen-injector Subcutaneous Discontinued Furosemide 20 MG Tablet Oral Discontinued Triamcinolone Acetonide 0.1% Cream External Discontinued SSD 1 % Cream External Discontinued HYDROcodone-Acetaminophen 5-325 MG Tablet Oral Discontinued Metoclopramide HCl 5 MG Tablet Oral Discontinued Gavi[employer]te-G 236 GM Solution Reconstituted Oral , Notes to Pharmacist: *[facility] and Interaction Alert[facility]*Discontinued MICONAZOLE 7 2% CRE , Notes to Pharmacist: *[facility] for [facility] and Interaction Alerts*Discontinued Clobetasol Propionate 0.05% Cream External Discontinued T[employer] FlexTouch 200 UNIT/ML Solution Pen-injector Subcutaneous Medication List reviewed and reconciled with the patient * Allergies: B etadine: Allergy - Onset Date 12/02/2023eftriaxone: Allergy - Onset Date 12/02/2023no[Allergies Verified] Objective: * Vitals: B P:146/71mm Hg, HR:86/min, Wt:182.2lbs, Wt-k.64 kg, Ht: 68.00 in, Ht-cm: 172.72 cm, BMI:27.7Index, Body Surface Area: 1.99. * Examination: P sychiatry: Appearance: w alks with cane, right below knee amputation.? G eneral Examination: - Mental Status Examination: - Patient reports fluctuating mood with some down days and frustration related to mobility issues. - Sleep pattern includes waking up early to urinate but otherwise describes sleep as like a rock. - Patient admits to occasional forgetfulness regarding meals. - Reports feeling under control with current depression but expresses uncertainty about future mood stability. - Physical Examination: - Mobility: Patient is using a cane and has experienced difficulty adapting to it. - Nutritional Status: Patient reports being malnourished and occasionally forgetting to eat, with recent cravings for donuts. - Gastrointestinal: Mention of recent severe diarrhea affecting sleep location. Assessment: * Assessment: 1. M ajor depressive disorder, recurrent severe without psychotic features - F33.2 (Primary)? 2. G eneralized anxiety disorder - F41.1 3 . O ther insomnia - G47.09 4 . C hronic kidney disease, stage 4 (severe) - N18.4 5 . H ypokalemia - E87.6 6 . N icotine dependence with current use - F17.200? 1. Depression:- Patient repo rts her mood has been relatively stable with some down days and frustration related to mobility issues.- Currently taking Bupropion 300 mg daily, Rexulti 2 mg daily, and Sertraline 100 mg daily.Plan:- Continue current medications and monitor for any changes in mood.- Schedule a follow-up appointment in 3 months to reassess the patient's mental health status.2. Insomnia:- Patient reports sleeping well but requires Trazodone 150 mg at bedtime as needed to sleep.Plan:- Continue Trazodone as needed for insomnia.- Encourage the patient to maintain good sleep hygiene.3. Tobacco use:- Patient continues to smoke approximately one pack of cigarettes per day and has considered quitting.Plan:- Discuss smoking cessation options and provide resources for support.- Encourage the patient to set a quit date.- Consider involving her partner, Fco, in the quitting process to increase the likelihood of success. Plan: * Treatment: 2. O ther insomnia Refill traZODone HCl Tablet, 150 MG, 1 tablet at bedtime, Oral, Once a day As needed, 30 days, 30 Tablet, Refills 3. Notes: cont trazodone 150mg hs 3. N icotine dependence with current use Notes: smokes about 1 ppd cigarettes, Stopping Smokeless Tobacco Use: Care Instructions material was published, Learning About Benefits of Quitting Smoking material was published, Deciding About Using Medicines To Quit Smoking material was published, Quitting Tobacco: Care Instructions material was published * Procedure Codes: G 9902 Pt scrn tbco and id as [id number] BEHAV ASSMT W/SCORE & DOCD/STAND [id number] VISIT COMPLEXITY INHERENT TO ONGOING CARE RELATED TO A PATIENT'S SINGLE, SERIOUS CONDITION OR A COMPLEX CONDITION * Preventive Medicine: Counseling: B P Management: F IRST HYPERTENSIVE BP READING FOLLOW-UP PLAN: Joanne white-up 1 month Follow up with your PCP, Vanna ALONSO RECOMMENDATION: Vanna alonso education, REFERRAL TO ALTERNATIVE / PRIMARY CARE PROVIDER: Juan Carlos copelandal to general medical service ____. C ommunication to patient: Ankur kumareled the Patient on tobacco use; cessation provided _ . S moking Cessation counseling done Discuss the importance of quitting smoking,. * Follow Up: 3 Months (Reason: f/u depression, anxiety) * Billing Information: * Visit Code: 69885 OFFICE OUTPATIENT VISIT 25 MINUTES DETAILED HISTORY AND EXAM/MODERATE MEDICAL DECISION MAKING. * Procedure Codes: G9902 Pt scrn tbco and id as user. [id number] BEHAV ASSMT W/SCORE & DOCD/STAND INSTRUMENT. G2211 VISIT COMPLEXITY INHERENT TO ONGOING CARE RELATED TO A PATIENT'S SINGLE, SERIOUS CONDITION OR A COMPLEX CONDITION. * LIFT SUPERVISOR Sign off status: Completed true * Provider: ERIK ARROYO Date: 10/10/2023 Generated for Elsa cook/Jer/Tereitting on: 0 12/18/2024 12:18 PM CDT History [...] inte rest or pleasure in doing things: Not at all Feeling down, depressed, or hopeless: No t at all Trouble falling or staying asleep, or sl eeping too much: Not at all Feeling tired or having little energy: S everal days Poor appetite or overeating: More than h damian the days Feeling bad about yourself o r that you are a failure, or have let yourself or your family down: Several days Trouble concentrating on thi ngs, such as reading the newspaper or watching television: Several days Moving or speaking so slowly that other people could have noticed; or the opposite, being so fidgety or restless that you have been moving around a lot more than usual: More than half the days Thoughts that you would be b josue off or of hurting yourself in some way: Not at all Interpretation: Mild Depression Intervention Depression Screening Findings: P les Follow-Up for Depression: [facility] treatment assessment, Patient follow-up to return when and if necessary Suicide Risk Assessment Performed: 08/10 Additional Evaluation for De pression: Psychiatric interview and evaluation Name of the standardized too l used for adult depression screening:: Patient Health Questionnaire (PHQ-9) Depression Screening MARIA R-7 (2018 Edition) Feelin g nervous, anxious, or on edge: Several days Not being able to stop or control worryi ng: Several days Worrying too much about different things : More than hafl the days Trouble relaxing: Not at all Being so restless that it is hard to sit still: Several days Becoming easily annoyed or irritable: Se veral days Feeling afraid as if something awful teresita ht happen: Not at all If you checked any problems, how difficult have they made it for you to do your work, take care of things at home, or get along with other people?: Somewhat difficult Interpretation of Total: (5 to 9) Mild [place]-Suicide Severity Rating Scale Suicide Risk (CSRS-screener) in the past one month Have you wished you were or wished you could go to sleep and not wake up?: No in the past one month Have y ou actually had any thoughts of killing yourself?: No Have you ever done anything, started to do anything, or prepared to do anything to end your life?: No Examination Category Sub-Category Detail Notes Category Not es Psychiatry Appearance: walks with cane, right below knee amputation General Examination - Mental Status Examination: - Patient reports fluctuating mood with some down days and frustration related to mobility issues. - Sleep pattern includes waking up early to urinate but otherwise describes sleep as like a rock. - Patient admits to occasional forgetfulness regarding meals. - Reports feeling under control with current depression but expresses uncertainty about future mood stability. - Physical Examination: - Mobility: Patient is using a cane and has experienced difficulty adapting to it. - Nutritional Status: Patient reports being malnourished and occasionally forgetting to eat, with recent cravings for donuts. - Gastrointestinal: Mention of recent severe diarrhea affecting sleep location.
--- OUTSIDE RECORDS SUMMARY | 2024-12-18 12:19 | XMS_ITS ---
Author Organization [facility] Address [address] [place] [address] Care Team Providers Care Academic Services Professional Name Role Phone Susana VILLALTA, Federico Primary Care Provider UnavailGary Madrigal Unavailable [phone] Allergies Allergen (clinical drug ingredient) Drug/Non Drug Allergy documented on EMR Reaction Allergy Type Onset Date Status povidone-iodine Betadine Unknown Drug Allergy 12/02/2023 Active ceftriaxone Ceftriaxone Unknown Drug Allergy 12/02/2023 Ac tive REASON FOR VISIT Confirmed, follow-up, MIPS diagnosis of HTN, Depression screening positive Medications Medication SIG (Take, Route, Frequency, Duration) Notes Start Date End Date Status FREESTYLE KAITLIN 2 SENSOR KIT *Reorder from [facility] for eRx and Interaction Alerts* 12/02/2023 Active OneTouch Ultra In Vitro 12/02/2023 Acti ve HUMALOG KWIKPEN U-200 200 unit/mL (3 mL) Subcutaneous *Reorder from [facility] for eRx and Interaction Alerts* 12/02/2023 Active PEN NEEDLE, DIABETIC 31 GAUGE X 15/64 *Reorder from [facility] for eRx and Interaction Alerts* 12/02/2023 Active Rexulti 2 MG Take 1 tablet by mouth once daily for 90 days for 90 Active Gabapentin 300 MG Oral 12/02/2023 A ctive DEXCOM G7 SENSOR DEVICE *Reorder from [facility] for eRx and Interaction Alerts* 12/02/2023 Active BAQSIMI 3 MG/ACTUATION NASAL SPRAY *Reorder from [facility] for eRx and Interaction Alerts* 12/02/2023 Active TRUEPLUS PEN NEEDLE 31 gauge x 16 MISCELLANEOUS *Reorder from [facility] for eRx and Interaction Alerts* 12/02/2023 Active Dexcom G7 Bulldogger 12/02/2023 Active Atorvastatin Calcium 10 MG Oral 12/02/2023 Active PEN NEEDLE 31 gauge x 1/ MISCELLANEOUS *Reorder from [facility] for eRx and Interaction Alerts* 12/02/2023 Active ULTRA-FINE MICRO PEN NEEDLE 32 gauge x 1/4 MISCELLANEOUS *Reorder from [facility] for eRx and Interaction Alerts* 12/02/2023 Active hydrALAZINE HCl 25 MG Oral 12/02/2023 Active Ondansetron HCl 4 MG Oral 12/02/2023 Active ProAir HFA 108 (90 Base) MCG/ACT Inhalation 12/02/2023 Active traZODone HCl 150 MG 1 tablet [...] Once a day for 30 days Active Social History Sex Assigned At : Social History Observation Description Sex Assigned At Female Vital Signs Blood pressure systolic 138 mm Hg 11/13/19 25 Blood pressure diastolic 74 mm Hg 025 Heart Rate 90 /min 11/13/2024 Height 68.00 in 11/13/2024 Weight 189 lbs 11/13/2024 BMI 28.73 kg/m2 11/13/2024 Height-cm 172.72 cm 11/13/2024 Weight-kg 85.73 kg 11/13/2024 Encounters Encounter Location Date Provider Diagnosis [facility] [address] [address] 11/13/2024 Gary Dominguez Benign essential HTN I10 ; Major depressive disorder, recurrent severe without psychotic features F33.2 ; Generalized anxiety disorder F41.1 ; Other insomnia G47.09 ; Chronic kidney disease, stage 4 (severe) N18.4 ; Hypokalemia E87.6 and Nicotine dependence with current use F17.200 Assessments Encounter Date Diagnosis (ICD Code) Assessment Notes Treatment Notes Treatment Clinical Notes Section Notes 11/13/2024 Benign essential HTN (ICD-10 - I10) 11/13/2024 Major depressive disorder, recurrent severe without psychotic features (ICD-10 - F33.2) recommend counseling cont bupropion er 300mg, rexulti 2mg daily, sertraline 100mg daily 11/13/2024 Generalized anxiety disorder (ICD-10 - F41.1) 11/13/2024 Other insomnia (ICD-10 - G47.09) cont trazodone 150mg hs 11/13/2024 Chronic kidney disease, stage 4 (severe) (ICD-10 - N18.4) 11/13/2024 Hypokalemia (ICD-10 - E87.6) 11/13/2024 Nicotine dependence with current use (ICD-10 - F17.200) smokes about 1 ppd cigarettes, Stopping Smokeless Tobacco Use: Care Instructions material was published, Learning About Benefits of Quitting Smoking material was published, Deciding About Using Medicines To Quit Smoking material was published, Quitting Tobacco: Care Instructions material was published 11/13/2024 Other 1. Insomnia: - Patient reports difficulty sleeping in bed due to leg discomfort and has been sleeping in a recliner. - Sleep duration varies from 5 to 9 hours per night. Plan: - Encourage the patient to maintain a consistent sleep schedule and practice good sleep hygiene. - Recommend the patient to consult with their primary care provider regarding the leg discomfort and potential interventions to improve sleep quality in bed. 2. Depression: - Patient reports increased depressive symptoms this week, possibly related to cold weather and being confined to the house. Plan: - Encourage the patient to engage in activities that promote mental well-being, such as exercise, socializing, and pursuing hobbies. - Monitor depressive symptoms and consider referral to a mental health professional if symptoms worsen or persist. 3. Burn injury: - Patient reports a recent burn injury to the hand while cooking and has been using prescribed medication for pain management. Plan: - Advise the patient to continue using the prescribed medication as directed and monitor for signs of infection or worsening symptoms. - Recommend the patient to follow up with Dr. Hewitt if the burn does not improve or if there are any concerns regarding the healing process. 4. Family and social support: - Patient discusses family dynamics and interactions with her and daughters. Plan: - Encourage the patient to maintain open communication with family members and seek support when needed. Follow-up: - Schedule a follow-up appointment in 3 months to reassess sleep patterns, depressive symptoms, burn injury healing progress, family and social support, and overall well-being. Plan Of Treatment Medication Medication Name Sig [...] anxiety Provider Name:Gary rushing, 02/05/2025 11:15:00 AM, [facility] [facility] [address], [facility] [address], [address], Progress Notes * NARGIS HERNANDEZ LDOB: [birth year] (59 yo F)Acc No.[id number]:11/13/2024 Patient: NARGIS SABA Provider: MARINA ARROYOHNP :1965 A ge:59 Y S ex:Female Date:11/13/2024 Address:[address] [place] [address] Pcp:Federico Meza MD Subjective: * Chief Complaints: * C onfirmedFollow-upMIPS diagnosis of HTNDepression screening positive * HPI: D epression screening: the note is transcribed using speech recognition software. It is a reflection of a visit with the patient. It might have some inaccuracy, including medication names and transcribing errors, though efforts have been made to correct them. Chief complaint- Increased fatigue and depression. The patient reports experiencing increased fatigue and depression over the past week. She attributes this to cold weather and being confined to her home, stating she feels more worn out this week and just doesn't have it in her. Her sleep pattern has been variable, with bedtime around 9-10 PM and wake times ranging from 5-9 AM, depending on the quality of her night's rest. The patient mentions a recent incident where she sustained a burn on her hand while cooking. She sought medical attention from Dr. Hewitt and obtained medication for pain management through her pharmacy. Additionally, the patient reports difficulty sleeping in bed due to unspecified leg issues, causing her to sleep in a recliner instead. 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 She lives with her spouse, Shirley, and has at least two daughters, one living in [place] and another in [place], who provide family support. PHQ-9 L ittle interest or pleasure in doing things?Several days F eeling down, depressed, or hopeless S everal T rouble falling or staying asleep, or sleeping too much N ot at all F eeling tired or having little energy S everal days P oor appetite or overeating S everal F eeling bad about yourself or that you are a failure, or have let yourself or your family down M ore than half the days T rouble concentrating on things, such as reading the newspaper or watching television S everal M oving or speaking so slowly that other people could have noticed; or the opposite, being so fidgety or restless that you have been moving around a lot more than usual M ore than half the days T houghts that you would be better off or of hurting yourself in some way S everal days (Consider Suicide Assessment Risk) T otal Score 1 0 I nterpretation M oderate Depression Intervention D epression Screening Findings P ositphong Rubio ollow-Up for Depression M ental health treatment assessment, Patient follow-up to return when and if necessary S uicide Risk Assessment Performed 0 11/13/2024 A dditional Evaluation for Depression P sychiatric interview and evaluation N vesta of the standardized tool used for adult depression screening: P atient Health Questionnaire (PHQ-9) D epression Screening: MARIA R-7 (2018 Edition) F eeling nervous, anxious, or on edge S ever N ot being able to stop or control worrying?Several days W orrying too much about different things S ever T rouble relaxing S ever B eing so restless that it is hard to sit still S ever B ecoming easily annoyed or irritable S F eeling afraid as if something awful might happen S ever T otal MARIA R-7 Score 7 I nterpretation of Total ( 5 to 9) Mild H istory of Presenting Problem: Anxiety p ersistent. Depression p ersistent. Symptoms vary in severity.? * ROS: P erformance Met: N ormal blood pressure reading documented, follow-up not required ( G8783)Patient not eligible due to active diagnosis of hypertension: G 9744. * Medical History: * Surgical History: * Hospitalization/Major Diagno stic Procedure: * Medications: T akingProAir HFA 108 (90 Base) MCG/ACT Aerosol Solution Inhalation ULTRA-FINE MICRO PEN NEEDLE 32 gauge x 1/4 NEEDLE, DISPOSABLE MISCELLANEOUS , Notes to Pharmacist: *Reorder from [facility] for eRx and Interaction Alerts*PEN NEEDLE 31 gauge x 1/4 NEEDLE, DISPOSABLE MISCELLANEOUS , Notes to Pharmacist: *Reorder from [facility] for eRx and Interaction Alerts*Atorvastatin Calcium 10 MG Tablet Oral hydrALAZINE HCl 25 MG Tablet Oral Ondansetron HCl 4 MG Tablet Oral Gabapentin 300 MG Capsule Oral Dexcom G7 Bulldogger TRUEPLUS PEN NEEDLE 31 gauge x 5/16 NEEDLE, DISPOSABLE MISCELLANEOUS , Notes to Pharmacist: *Reorder from [facility] for eRx and Interaction Alerts*BAQSIMI 3 MG/ACTUATION NASAL SPRAY , Notes to Pharmacist: *Reorder from [facility] for eRx and Interaction Alerts*DEXCOM G7 SENSOR DEVICE , Notes to Pharmacist: *Reorder from [facility] for eRx and Interaction Alerts*PEN NEEDLE, DIABETIC 31 GAUGE X 15/64 , Notes to Pharmacist: *Reorder from [facility] for eRx and Interaction Alerts*HUMALOG KWIKPEN U-200 200 unit/mL (3 mL) Solution Pen-injector Subcutaneous , Notes to Pharmacist: *Reorder from [facility] for eRx and Interaction Alerts*OneTouch Ultra Strip In Vitro FREESTYLE KAITLIN 2 SENSOR KIT , Notes to Pharmacist: *Reorder from [facility] for eRx and Interaction Alerts*Rexulti 2 MG Tablet Take 1 tablet by mouth once daily for 90 days buPROPion HCl ER (XL) 300 MG Tablet Extended Release 24 Hour 1 tablet in the morning Oral Once a day Rexulti 2 mg Tablet 1 tablet Oral once a day Sertraline HCl 100 MG Tablet 1 tablet Oral Once a day traZODone HCl 150 MG Tablet 1 tablet at bedtime Oral Once a day As neededMedication List reviewed and reconciled with the patientTaking ProAir HFA 108 (90 Base) MCG/ACT Aerosol Solution Inhalation Taking ULTRA-FINE MICRO PEN NEEDLE 32 gauge x 1/4 NEEDLE, DISPOSABLE MISCELLANEOUS , Notes to Pharmacist: *Reorder from [facility] for eRx and Interaction Alerts*Taking PEN NEEDLE 31 gauge x 1/4 NEEDLE, DISPOSABLE MISCELLANEOUS , Notes to Pharmacist: *Reorder from [facility] for eRx and Interaction Alerts*Taking Atorvastatin Calcium 10 MG Tablet Oral Taking hydrALAZINE HCl 25 MG Tablet Oral Taking Ondansetron HCl 4 MG Tablet Oral Taking Gabapentin 300 MG Capsule Oral Taking Dexcom G7 Bulldogger Taking TRUEPLUS PEN NEEDLE 31 gauge x 5/16 NEEDLE, DISPOSABLE MISCELLANEOUS , Notes to Pharmacist: *Reorder from [facility] for eRx and Interaction Alerts*Taking BAQSIMI 3 MG/ACTUATION NASAL SPRAY , Notes to Pharmacist: *Reorder from [facility] for eRx and Interaction Alerts*Taking DEXCOM G7 SENSOR DEVICE , Notes to Pharmacist: *Reorder from [facility] for eRx and Interaction Alerts*Taking PEN NEEDLE, DIABETIC 31 GAUGE X 15/64 , Notes to Pharmacist: *Reorder from [facility] for eRx and Interaction Alerts*Taking HUMALOG KWIKPEN U-200 200 unit/mL (3 mL) Solution Pen-injector Subcutaneous , Notes to Pharmacist: *Reorder from [facility] for eRx and Interaction Alerts*Taking OneTouch Ultra Strip In Vitro Taking FREESTYLE KAITLIN 2 SENSOR KIT , Notes to Pharmacist: *Reorder from [facility] for eRx and Interaction Alerts*Taking Rexulti 2 MG Tablet Take 1 tablet by mouth once daily for 90 days Taking buPROPion HCl ER (XL) 300 MG Tablet Extended Release 24 Hour 1 tablet in the morning Oral Once a day Taking Rexulti 2 mg Tablet 1 tablet Oral once a day Taking Sertraline HCl 100 MG Tablet 1 tablet Oral Once a day Taking traZODone HCl 150 MG Tablet 1 tablet at bedtime Oral Once a day As neededMedication List reviewed and reconciled with the patient * Allergies: B etadine: Allergy - Onset Date 12/02/2023eftriaxone: Allergy - Onset Date 12/02/2023no[Allergies Verified] Objective: * Vitals: B P:138/74mm Hg, HR:90/min, Wt:189lbs, Wt-k.73 kg, Ht: 68.00 in, Ht-cm: 172.72 cm, BMI:28.73Index, Body Surface Area: 2.03. * Examination: P sychiatry: Appearance: w alks with cane, right below knee amputation.? Abnormal body movements: n one. Orientation: a wake, alert and oriented x 3. Speech / language: c lear and coherent, normal rate, volume, and articulation (RVR), proper grammar used. Thought content: a ppropriate. G eneral Examination: - Mental Status Examination: - Patient reports feeling tired and worn out, particularly exacerbated this week, potentially due to being confined indoors due to cold weather. - Expressed feelings of depression and low energy. - Sleep pattern includes going to bed between 9-10 PM and waking up multiple times, with final awakening around 5-9 AM depending on circumstances. - Cognitive function appears intact with clear communication and ability to recount events and manage household issues. - Physical Examination: - Patient reports a recent burn on the hand while cooking, specifically while making a carolina and accidentally pouring hot broth on the hand. Assessment: * Assessment: 1. M ajor depressive disorder, recurrent severe without psychotic features - F33.2 (Primary)? 2. B enign essential HTN - I10 3 . G eneralized anxiety disorder - F41.1 4 . O ther insomnia - G47.09 5 . C hronic kidney disease, stage 4 (severe) - N18.4 6 . H ypokalemia - E87.6 7 .?Nicotine dependence with current use - F17.200 Plan: * Treatment: 2. O ther insomnia [...] Quitting Tobacco: Care Instructions material was published 4. O thers Clinical Notes: 1. Insomnia: - Patient reports difficulty sleeping in bed due to leg discomfort and has been sleeping in a recliner. - Sleep duration varies from 5 to 9 hours per night. Plan: - Encourage the patient to maintain a consistent sleep schedule and practice good sleep hygiene. - Recommend the patient to consult with their primary care provider regarding the leg discomfort and potential interventions to improve sleep quality in bed. 2. Depression: - Patient reports increased depressive symptoms this week, possibly related to cold weather and being confined to the house. Plan: - Encourage the patient to engage in activities that promote mental well-being, such as exercise, socializing, and pursuing hobbies. - Monitor depressive symptoms and consider referral to a mental health professional if symptoms worsen or persist. 3. Burn injury: - Patient reports a recent burn injury to the hand while cooking and has been using prescribed medication for pain management. Plan: - Advise the patient to continue using the prescribed medication as directed and monitor for signs of infection or worsening symptoms. - Recommend the patient to follow up with Dr. Hewitt if the burn does not improve or if there are any concerns regarding the healing process. 4. Family and social support: - Patient discusses family dynamics and interactions with her and daughters. Plan: - Encourage the patient to maintain open communication with family members and seek support when needed. Follow-up: - Schedule a follow-up appointment in 3 months to reassess sleep patterns, depressive symptoms, burn injury healing progress, family and social support, and overall well-being. * Procedure Codes: G 8783 NORMAL BP READING DOC F/U NOT [id number] Pt not tuyet d/t act dig [id number] BEHAV ASSMT W/SCORE & DOCD/STAND [id number] CLIN DEPRESSION SCREEN [id number] MOST RECENT SYSTOLIC BP < 140MM [id number] MOST RECENT DIASTOLIC BP < 90MM HG * Follow Up: 3 Months (Reason: f/u depression, anxiety) * Billing Information: * Visit Code: 50708 OFFICE OUTPATIENT VISIT 25 MINUTES DETAILED HISTORY AND EXAM/MODERATE MEDICAL DECISION MAKING. * Procedure Codes: G8783 NORMAL BP READING DOC F/U NOT RQR. G9744 Pt [place]uy[place] d/[place]. [address] BEHAV ASSMT W/SCORE & DOCD/STAND INSTRUMENT. G8431 CLIN DEPRESSION SCREEN DOC. G8752 MOST RECENT SYSTOLIC BP < 140MM HG. G8754 MOST RECENT DIASTOLIC BP < 90MM HG. * Sign off status: Completed true * Provider: ERIK ARROYO Date: 0 11/13/2024 Generated for Elsa cook/Jer/Consuelosmitting on: 0 12/18/2024 12:19 PM CDT History and Physical Notes * HPI (History of Present Illness) Category Sub-Category Detail Notes Category Not es History of Presenting Problem Anxiety persistent Depression persistent. Symptoms vary in severity Depression screening PHQ-9 Little inte rest or pleasure in doing things: Several days Feeling down, depressed, or hopeless: Se veral days Trouble falling or staying asleep, or sl eeping too much: Not at all Feeling tired or having little energy: S everal days Poor appetite or overeating: Several day s Feeling bad about yourself o r that you are a failure, or have let yourself or your family down: More than half the days Trouble concentrating on thi ngs, such [...] or of hurting yourself in some way: Several days (Consider Suicide Assessment Risk) Total Score: 10 Interpretation: Moderate Depression Intervention Depression Screening Findings: P ositve Follow-Up for Depression: [facility] treatment assessment, Patient follow-up to return when and if necessary Suicide Risk Assessment Performed: 11/13 Additional Evaluation for Depression: Ps ychiatric interview and evaluation Name of the standardized too l used for adult depression screening:: Patient Health Questionnaire (PHQ-9) Depression Screening MARIA R-7 (2018 Edition) Feelin g nervous, anxious, or on edge: Several days Not being able to stop or control worryi ng: Several days Worrying too much about different things : Several days Trouble relaxing: Several days Being so restless that it is hard to sit still: Several days Becoming easily annoyed or irritable: Se veral days Feeling afraid as if something awful teresita ht happen: Several days Total MARIA R-7 Score: 7 Interpretation of Total: (5 to 9) Mild Examination Category Sub-Category Detail Notes Category Not es Psychiatry Appearance: walks with cane, right below knee amputation Abnormal body movements: none Orientation: awake, alert and ijeoma ented x 3 Speech / language: clear and coherent, normal rate, volume, and articulation (RVR), proper grammar used Thought content: appropriate General Examination - Mental Status Examination: - Patient reports feeling tired and worn out, particularly exacerbated this week, potentially due to being confined indoors due to cold weather. - Expressed feelings of depression and low energy. - Sleep pattern includes going to bed between 9-10 PM and waking up multiple times, with final awakening around 5-9 AM depending on circumstances. - Cognitive function appears intact with clear communication and ability to recount events and manage household issues. - Physical Examination: - Patient reports a recent burn on the hand while cooking, specifically while making a carolina and accidentally pouring hot broth on the hand.
--- OUTSIDE RECORDS SUMMARY | 2024-12-18 12:19 | XMS_ITS | Clinical Summary ---
Author Organization [facility] Tejeda Address [address] [place] [address] Care Team Providers Care Auto Service Instructor Name Role Phone Federico Meza MD Primary Care Provider [phone] Allergies Active Allergy Reactions Criticality Noted Date Comments Ceftriaxone Rash Low 09/22/2024 Povidone-Iodine Itching Low 09/22/2024 Medications buPROPion HCL (WELLBUTRIN XL) 300 mg Extended Release 24 hour tablet Take 300 mg by mouth daily in the morning. 3 Active gabapentin (NEURONTIN) 300 mg capsule Take 300 mg by mouth 3 times daily. 4 Active atorvastatin (LIPITOR) 10 mg tablet Take 10 mg by mouth daily. Active Rexulti 2 mg Tablet Take 2 mg by mouth daily. Active furosemide (LASIX) 20 mg tablet Take 20 mg by mouth daily. Active sertraline (ZOLOFT) 100 mg tablet Take 100 mg by mouth daily. Active metoclopramide HCl (REGLAN) 5 mg tablet Take 5 mg by mouth 4 times daily before meals and at bedtime. 4 Active traZODone (DESYREL) 150 mg tablet Take 150 mg by mouth daily at bedtime. Active cholestyramine, with sugar, (QUESTRAN) 4 gram Powder in Packet Take 2 Packets by mouth daily. 4 Active cyanocobalamin 1,000 mcg Tablet Take 1,000 mcg by mouth daily. Active Cholecalciferol, Vitamin D3, 50 mcg (2,000 unit) Capsule Take by mouth. Active POTASSIUM AMINOBENZOATE ORAL Take by mouth. Active ASCORBIC ACID, VITAMIN C, ORAL Take by mouth. Active Active Problems No known active problems Encounters Date Type Department Care Team Description 12/13/2024 External Device Data [facility] ABSTRACTION Provider, Abstract 12/05/2024 External Device Data [facility] ABSTRACTION Provider, Abstract 12/05/2024 External Device Data [facility]STRACTION Provider, Abstract 12/02/2024 External Device Data [facility]STRACTION Provider, Abstract 12/01/2024 External Device Data [facility] ABSTRACTION Provider, Abstract 11/29/2024 External Device Data [facility] ABSTRACTION Provider, Abstract 11/14/2024 External Device Data [facility] ABSTRACTION Provider, Abstract 10/25/2024 2:30 PM SPOTTER Office Visit [facility] [address] [place] [address] Lalit Chavez MD Chronic anemia (Primary Dx) 10/24/2024 External Device Data ST[facility] ABSTRACTION Provider, Abstract 10/18/2024 External Device Data [facility] ABSTRACTION Provider, Abstract 10/18/2024 External Device Data [facility] ABSTRACTION Provider, Abstract 10/11/2024 External Device Data ST[facility] ABSTRACTION Provider, Abstract 10/04/2024 Orders Only [facility] [address] [place] [address] Lalit Chavez MD 10/03/2024 External Device Data ST[facility] ABSTRACTION Provider, Abstract 09/26/2024 External Device Data ST[facility] ABSTRACTION Provider, Abstract 09/22/2024 1:30 PM SPOTTER Office Visit [facility] [address] [place] [address] Leandro Schumacher MD Chronic anemia (Primary Dx) from Last 3 Months Family History Medical History Relation Name Comments Heart murmur Brother No Known Problems Child 1 No Known Problems Child 2 No Known Problems Father No Known Problems Mother Relation Name Status Comments Brother Alive Child 1 Alive Child 2 Alive Father Mother Social History Tobacco Use Types Packs/Day Years Used Date Smoking Tobacco: Every Day Cigarettes 1 43.2 Started: 09/1981 Alcohol Use Standard Drinks/Week Comments Never 0 (1 standard drink = 0.6 oz pur e alcohol) Comments Unknown Sex and Gender Information Value Date Recorded Sex Assigned at Not on file Legal Sex Female 10:15 AM SPOTTER Gender Identity Not on file Sexual Orientation Not on file Last Filed Vital Signs Vital Sign Reading Time Taken Comments Blood Pressure 132/73 10/25/2024 2:47 PM SPOTTER Pulse 81 10/25/2024 2:47 PM SPOTTER Temperature 36.7 C (98.1 F) 10/25/2024 2:47 PM SPOTTER Respiratory Rate 15 10/25/2024 2:47 PM SPOTTER Oxygen Saturation 94% 10/25/2024 2:47 PM SPOTTER Inhaled Oxygen Concentration - - Weight 88.1 kg (194 lb 3.2 oz) 10/25/2024 2:47 P M SPOTTER Height 172.7 cm (5' 8 ) 09/22/2024 1:13 PM SPOTTER Body Mass Index 29.53 09/22/2024 1:13 PM SPOTTER Plan of Treatment Health Maintenance Due Date Last Done Comments DIABETES ANNUAL FOOT EXAM 1985 DIABETES ANNUAL RETINAL EXAM 1985 DIABETES MICROALBUMIN ANNUAL SCREEN 1985 LDL CHOLESTEROL ANNUAL 1985 HEPATITIS B VACCINES (1 of 3 - 19+ 3-dose series) 1986 BREAST CANCER SCREENING 2007 FIT-DNA Q 3 years 01/12/2012 FIT/FOBT Q 1 year 01/12/2012 Flex Sig/CT Colonography Q 5 years 01/12/2012 Lung Cancer Screening 2017 ZOSTER VACCINE (1 of 2) 2017 DIABETES HBA1C Q 6 MONTHS 08/21/2023 02/18/2023, 09/2015 INFLUENZA VACCINE (#1) 2024 Preventative Visit- Commercial 09/27/2024 COLORECTAL SCREENING 05/08/2025 05/08/2015 Colorectal Cancer Screening 05/08/2025 DTAP/TDAP/TD VACCINES (2 - Td or Tdap) 10/19/2028 Procedures Procedure Name Priority Date/Time Associated Diagnosis Comments TRANSFERRIN RECEPTOR TFR SOLUBLE Routine 09/22/2024 4:23 PM SPOTTER TRANSFERRIN RECEPTOR TFR SOLUBLE Routine 09/22/2024 4:01 PM SPOTTER from Last 3 Months Results * TRANSFERRIN RECEPTOR TFR SOLUBLE (09/22/2024 4:23 PM SPOTTER) Only the most recent of2 resultswithin the time period is included. Blood us Lalit Chavez MD CHEMISTRY ORDERABLES Final Resu lt from Last 3 Months Insurance [employer] C20 Care Teams Auto Service Instructor Relationship Specialty Start Date End Date Federico Meza MD [address] [place] [address] PCP - General Family Practice 09/12/24
== END 2024-12-18 10:32 | disposition home or self-care (01) ==
LOC: ANHLAB 10:32
PROVIDERS: PCP Family Medicine; Visit Provider Internal Medicine Nephrology
DX: E11.22 Type 2 diabetes mellitus with diabetic chronic kidney disease (principal); I12.9 Hypertensive chronic kidney disease with stage 1 through stage 4 chronic kidney disease, or unspecified chronic kidney disease; N18.4 Chronic kidney disease, stage 4 (severe)
CPT/HCPCS: 36415; 80069; 82570; 84156

== ENCOUNTER 2025-03-31 12:05 | Outpatient (CLI) | payer OTHER, SELFPAY ==
--- OUTSIDE RECORDS SUMMARY | 2025-03-31 12:09 | XMS_ITS | Patient Health Record ---
Author Organization [facility] [employer] Address [address] [place] [address] Care Team Providers Care Enterprise Project Manager Name Role Phone Susana VILLALTA, Federico Primary Care Provider Gary Rojas Unavailable [phone] Allergies Allergen (clinical drug ingredient) Drug/Non Drug Allergy documented on EMR Reaction Allergy Type Onset Date Status povidone-iodine Betadine Unknown Drug Allergy 12/02/2023 Active ceftriaxone Ceftriaxone Unknown Drug Allergy 12/02/2023 Ac tive Reason For Referral No Information Medications Medication SIG (Take, Route, Frequency, Duration) Notes Start Date End Date Status traZODone HCl 150 MG 1 tablet at bedtime Oral Once a day; Duration: 30 days As needed Active TRUEPLUS PEN NEEDLE 31 gauge x 5/16 MISCELLANEOUS *Reorder from ClearRiskSyntaxin for eRx and Interaction Alerts* 12/02/2023 Active Sertraline HCl 100 MG 1 tablet Oral Once a day; Duration: 30 days Active Dexcom G7 Cane Loader 12/02/2023 Active DEXCOM G7 SENSOR DEVICE *Reorder from TreeRing for eRx and Interaction Alerts* 12/02/2023 Active BAQSIMI 3 MG/ACTUATION NASAL SPRAY *Reorder from ClearRiskSyntaxin for eRx and Interaction Alerts* 12/02/2023 Active Rexulti 2 mg 1 tablet Oral once a day; Duration: 30 days Active Gabapentin 300 MG Oral 12/02/2023 A ctive buPROPion HCl ER (XL) 300 MG 1 tablet in the morning Oral Once a day; Duration: 30 days Active Ondansetron HCl 4 MG Oral 12/02/2023 Active hydrALAZINE HCl 25 MG Oral 12/02/2023 Active ULTRA-FINE MICRO PEN NEEDLE 32 gauge x 1/4 MISCELLANEOUS *Reorder from Medispan for eRx and Interaction Alerts* 12/02/2023 Active HUMALOG KWIKPEN U-200 200 unit/mL (3 mL) Subcutaneous *Reorder from Medispan for eRx and Interaction Alerts* 12/02/2023 Active ProAir HFA 108 (90 Base) MCG/ACT Inhalation 12/02/2023 Active PEN NEEDLE, DIABETIC 31 GAUGE X 15/64 *Reorder from Medispan for eRx and Interaction Alerts* 12/02/2023 Active Atorvastatin Calcium 10 MG Oral 12/02/2023 Active FREESTYLE KAITLIN 2 SENSOR KIT *Reorder from Medispan for eRx and Interaction Alerts* 12/02/2023 Active PEN NEEDLE 31 gauge x 1/4 MISCELLANEOUS *Reorder from Medispan for eRx and Interaction Alerts* 12/02/2023 Active OneTouch Ultra In Vitro 12/02/2023 Acti ve Immunizations Vaccine Route Administration Date Status Comme nts Td (adult), adsorbed Unknown 09/27/2007 Administered Tdap Unknown 10/19/2018 Administered Social History Tobacco Use: Social History Observation [...] Severe recurrent major depression without psychotic features (78446219) Major depressive disorder, recurrent severe without psychotic features (F33.2) 3 Active confirmed Problem Generalized anxiety disorder (44395910) Generalized anxiety disorder (F41.1) 4 Active confirmed Problem Insomnia (286545620) Other insomnia (G47.09) 4 Active confirmed Problem Chronic kidney disease stage 4 (753790299) Chronic kidney disease, stage 4 (severe) (N18.4) 4 Active confirmed Problem Tobacco user (771855649) Nicotine dependence with current use (F17.200) Active confirmed Vital Signs Heart Rate 83 /min 02/05/2025 Blood pressure diastolic 87 mm Hg 02/05/2025 Height-cm 172.72 cm 02/05/2025 Weight-kg 86.18 kg 02/05/2025 Height 68.00 in 02/05/2025 Blood pressure systolic 160 mm Hg 02/05/2025 Weight 190 lbs 02/05/2025 BMI 28.89 kg/m2 02/05/2025 Encounters Encounter Location Date Provider Diagnosis [employer] [address] [address] 05/11/2024 Garyjaci Saundersoza Major depressive disorder, recurrent severe without psychotic features F33.2 ; Generalized anxiety disorder F41.1 ; Other insomnia G47.09 ; Chronic kidney disease, stage 4 (severe) N18.4 and Hypokalemia E87.6 [facility] [address] [address] 08/10/2024 Garyjaci Saundersoza Major depressive disorder, recurrent severe without psychotic features F33.2 ; Generalized anxiety disorder F41.1 ; Other insomnia G47.09 ; Chronic kidney disease, stage 4 (severe) N18.4 ; Hypokalemia E87.6 and Nicotine dependence with current use F17.[address] [employer] [address] [address] 11/13/2024 Garyjaci Saundersoza Benign essential HTN I10 ; Major depressive disorder, recurrent severe without psychotic features F33.2 ; Generalized anxiety disorder F41.1 ; Other insomnia G47.09 ; Chronic kidney disease, stage 4 (severe) N18.4 ; Hypokalemia E87.6 and Nicotine dependence with current use F17.[address] [employer] [address] [address] 02/05/2025 Garyjaci De La Cruza Encounter for screen ing for depression Z13.31 ; Nicotine use Z72.0 ; Encounter for screening for cardiovascular disorders Z13.6 ; Dietary counseling and surveillance Z71.3 ; Benign essential HTN I10 ; Major depressive [...] anxiety. Plan: - Encourage patient to utilize non-pharmacologic al coping strategies for anxiety management. 3. Insomnia: [...] gastrointestinal symptoms. - Consider referral to a casket liner if dietary restrictions continue to impact the patient's quality of life. Follow-up: - Schedule a three-month follow-up appointment to assess the patient's progress and address any concerns. 02/05/2025 Encounter for screening for depression (ICD-10 - Z13.31) 11/13/2024 Benign essential HTN (ICD-10 - I10) 08/10/2024 Major depressive disorder, recurrent severe without [...] process to increase the likelihood of success. 02/05/2025 Nicotine use (ICD-10 - Z72.0) 11/13/2024 Major depressive disorder, recurrent severe without psychotic features (ICD-10 - F33.2) recommend counseling cont bupropion er 300mg, rexulti 2mg daily, sertraline 100mg daily 05/11/2024 Generalized anxiety disorder (ICD-10 - F41.1) [...] anxiety. Plan: - Encourage patient to utilize non-pharmacologic al coping strategies for anxiety management. 3. Insomnia: [...] gastrointestinal symptoms. - Consider referral to a casket liner if dietary restrictions continue to impact the [...] anxiety. Plan: - Encourage patient to utilize non-pharmacologic al coping strategies for anxiety management. 3. Insomnia: [...] gastrointestinal symptoms. - Consider referral to a casket liner if dietary restrictions continue to impact the patient's quality of life. Follow-up: - Schedule a three-month follow-up appointment to assess the patient's progress and address any concerns. 11/13/2024 Generalized anxiety disorder (ICD-10 - F41.1) 02/05/2025 Encounter for screening for cardiovascular disorders (ICD-10 - Z13.6) 08/10/2024 Chronic kidney disease, stage 4 (severe) [...] process to increase the likelihood of success. 02/05/2025 Dietary counseling and surveillance (ICD-10 - Z71.3) 11/13/2024 Other insomnia (ICD-10 - G47.09) cont trazodone 150mg hs 05/11/2024 Chronic kidney disease, stage 4 (severe) [...] anxiety. Plan: - Encourage patient to utilize non-pharmacologic al coping strategies for anxiety management. 3. Insomnia: [...] gastrointestinal symptoms. - Consider referral to a casket liner if dietary restrictions continue to impact the patient's quality of life. Follow-up: - Schedule a three-month follow-up appointment to assess the patient's progress and address any concerns. 11/13/2024 Chronic kidney disease, stage 4 (severe) (ICD-10 - N18.4) 02/05/2025 Benign essential HTN (ICD-10 - I10) 08/10/2024 Nicotine dependence with current use (ICD-10 [...] process to increase the likelihood of success. 05/11/2024 Hypokalemia (ICD-10 - E87.6) 1. Major [...] anxiety. Plan: - Encourage patient to utilize non-pharmacologic al coping strategies for anxiety management. 3. Insomnia: [...] gastrointestinal symptoms. - Consider referral to a casket liner if dietary restrictions continue to impact the patient's quality of life. Follow-up: - Schedule a three-month follow-up appointment to assess the patient's progress and address any concerns. 02/05/2025 Major depressive disorder, recurrent severe without psychotic features (ICD-10 - F33.2) recommend counseling cont bupropion er 300mg, rexulti 2mg daily, sertraline 100mg daily 11/13/2024 Hypokalemia (ICD-10 - E87.6) 02/05/2025 Generalized anxiety disorder (ICD-10 - F41.1) 11/13/2024 Nicotine dependence with current use (ICD-10 - F17.200) smokes about 1 ppd cigarettes, Stopping Smokeless Tobacco Use: Care Instructions material was published, Learning About Benefits of Quitting Smoking material was published, Deciding About Using Medicines To Quit Smoking material was published, Quitting Tobacco: Care Instructions material was published 02/05/2025 Other insomnia (ICD-10 - G47.09) cont trazodone 150mg hs 02/05/2025 Chronic kidney disease, stage 4 (severe) (ICD-10 - N18.4) reports she will be starting dialysis 02/05/2025 Hypokalemia (ICD-10 - E87.6) 02/05/2025 Nicotine dependence with current use (ICD-10 - F17.200) smokes about 1 ppd cigarettes 11/13/2024 Other 1. Insomnia: - Patient reports [...] family and social support, and overall well-being. 02/05/2025 Other Jeanette Hernandez, female patient with history of chronic kidney disease, presenting with worsening kidney function and fatigue, considering dialysis options. Chronic Kidney Disease with Worsening Function Assessment: Patient reports progressive decline in kidney function, no longer maintaining steady levels. This progression is causing significant anxiety for the patient. She is scheduled to meet with a surgeon to discuss dialysis options, including the possibility of home dialysis via port placement. The patient expresses fear about the procedure and potential lifestyle changes. There is also consideration for future kidney transplantation , though the patient is not currently a transplant candidate. Plan: - Surgical consultation scheduled for Wednesday to discuss dialysis options and potential port placement for home dialysis - Educate patient on dialysis process, addressing concerns about needle use and frequency of treatments - Monitor kidney function Fatigue Assessment: Patient reports significant fatigue, falling asleep unexpectedly during the day and going to bed early (around 9 PM). This fatigue may be related to worsening kidney function, as the patient inquired about the connection between feeling unwell and her kidney condition. Plan: - Continue to monitor fatigue levels - Educate patient on the potential relationship between kidney function and fatigue - Encourage adequate rest and sleep hygiene Tobacco Use Disorder Assessment: Patient continues to smoke approximately one pack of cigarettes per day. Plan: - Advise smoking cessation - Offer resources and support for smoking cessation if patient expresses interest Medication Management Assessment: Patient reports tolerating current medications well, stating So far, so good. Plan: - Refill current medications as prescribed - Follow up in 3 months for medication review and overall health status the note is transcribed using speech recognition software. It is a reflection of a visit with the patient. It might have some inaccuracy, including medication names and transcribing errors, though efforts have been made to correct them. Plan Of Treatment Next Appt Details Provider Name:Gary rushing, 05/14/2025 11:15:00 AM, [address], [facility] [address], [place], [address], Insurance Providers Payer Name Payer Address Payer Phone Subscriber Number Group Number Insured Name Patient Relationship to Insured Coverage Start Date Coverage End Date Reymundo [address] [place] [address] [id number] MARISELA HERNANDEZ Spouse - patient is the spouse of the insured Medical (General) History Medical History History ICD Code Problems: Chronic hypokalemia Chronic kidney disease stage 4 Disease related peripheral neuropathy Generalized anxiety disorder Long-term current use of drug therapy Mild recurrent major depression Persistent insomnia Primary insomnia Severe recurrent major depression , Imported from Highlights: Th e patient had multiple encounters with healthcare providers from February 2024 to November 2024. The patient was hospitalized on March 24, 2024, at [facility] under the care of Dr. Julisa Sen. The patient was diagnosed with acute renal failure, dehydration, diarrhea of presumed infectious origin, hypokalemia, metabolic acidosis, and urinary tract infection with pyuria. The patient also had several home care visits and follow-ups with [facility] and [facility]. On February 16, 2024, the patient visited the emergency department at [facility], where Dr. Ana Luisa Luevano identified chronic kidney disease, coronary artery calcification, obstipation, pyuria, rectal pain, and urinary retention. The patient also had office visits at [facility] with Dr. Lalit Chavez and Dr. Leandro Schumacher, where chronic anemia was noted. The patient's data was also regularly monitored through an external device by Provider Abstract at [facility]. Surgical History Surgery Date(Month/Year) Any surgical history Breast surgery () Other
--- OUTSIDE RECORDS SUMMARY | 2025-03-31 12:09 | XMS_ITS | Clinical Summary ---
Author Organization [facility] Address [address] [address] Phone Care Team Providers Care Egg Worker Name Role Phone Chase Leigh MD Primary Care Provider [phone] Allergies Active Allergy Reactions Criticality Noted Date [...] 10:15 AM CDT Height 175.3 cm (5' 9) 07/07/2019 10:15 AM CDT Body Mass Index 28.06 07/07/2019 10:15 AM CDT Plan of Treatment Health Maintenance Due Date Last Done Comments Diabetes: Eye Exam 1967 Diabetes: Foot Exam 1965 Hepatitis C Virus (HCV) Screening 1965 TdaP Immunization 1967 Hepatitis B Immunization (1 of 3 - 19+ 3-dose series) 1986 Pneumococcal Immunization (5 0+ years) (1 of 2 - PCV) 1986 Cologuard 01/12/2012 Immunochemical Fecal Occult Blood 01/12/2012 Diabetes: Hemoglobin A1c 04/27/2016 016, 08/27/2015 Diabetes: Nephropathy Screening 10/28/2016 10/28/2015 Zoster Immunization (1 of 2) 2017 Colonoscopy 07/07/2020 07/07/2019, 07/06/2019, 05/08/2015 Colorectal Cancer Screening 07/07/2020 SARS-COV-2 Immunization ( - 2023- season) 2024 Influenza Immunization (Seas on Ended) 2025 Respiratory Syncytial Virus (RSV) Immunization (Adult) (1 - 1-dose 75+ series) 2042 Human Papillomavirus (HPV) Immunization Aged Out No longer eligible b ased on patient's age to complete this topic Meningococcal Immunization (ACWY) Aged Out No longer eligible b ased on patient's age to complete this topic Rotavirus Immunization Aged Out No lo nger eligible based on patient's age to complete this topic Procedures Procedure Name Priority Date/Time Associated Diagnosis Comments CMP (COMPREHENSIVE METABOLIC PANEL) Today 10/28/2015 1:20 PM CHILD CARE GIVER Type 2 diabetes mellitus without complication (HCC) HEMOGLOBIN A1C W/ ESTIMATED GLUCOSE Routine 10/28/2015 1:20 PM CHILD CARE GIVER Type 2 diabetes mellitus without complication (HCC) HM COLONOSCOPY Routine 05/08/2015 from Last 3 Months or Most Recently Relevant to Health Maintenance Results * HEMOGLOBIN A1C W/ ESTIMATED GLUCOSE (10/28/2015 1:20 PM CHILD CARE GIVER) HGB-A1C 6.3 4.4 - 6.4 % 10/28/2015 4:15 PM CHILD CARE GIVER [facility] Est Average Glucose 134.1 mg/dL 10/28/2015 4:15 PM CHILD CARE GIVER [facility] Blood specimen (specimen) Venipuncture / Unknown 10/28/2015 1:20 PM CHILD CARE GIVER 10/28/2015 1:24 PM CHILD CARE GIVER Narrative [facility] - 10/28/2015 4:15 PM CHILD CARE GIVER HEMOGLOBIN A1C: DIABETIC PATIENTS: WELL-CONTROLLED: 6.2 - 7.0 INTERMEDIATE WELL-CONTROLLED: 7.0 - 9.0 POORLY-CONTROLLED: >9.0 us Mart Harris MD CHEMISTRY ORDERABLES Smita l Result [facility] [address] [place] [address] * (ABNORMAL) CMP (COMPREHENSIVE METABOLIC PANEL) (10/28/2015 1:20 PM CHILD CARE GIVER) Pathologist [facility] SODIUM 138 131 - 143 mmol/L 10/28/2015 4:28 PM CHILD CARE GIVER [facility] POTASSIUM 4.0 3.5 - 5.1 mmol/L 10/28/2015 4:28 PM CHILD CARE GIVER [facility] CHLORIDE 99(L) 100 - 110 mmol/L 10/28/2015 4:28 PM CHILD CARE GIVER [facility] CO2, VENOUS 27 22 - 32 mmol/L 10/28/2015 4:28 PM CHILD CARE GIVER [facility] ANION GAP 16.0 8.0 - 20.0 mmol/L 10/28/2015 4:28 PM CHILD CARE GIVER [facility] GLUCOSE 117(H) 70 - 105 mg/dL 10/28/2015 4:28 PM [facility] BUN 7(L) 10 - 31 mg/dL 10/28/2015 4:28 PM [facility] CREATININE, BLOOD 0.60 0.60 - 1.30 mg/dL 10/28/2015 4:28 PM [facility] BUN/CREATININE RATIO 12 12 - 20 ratio 10/28/2015 4:28 PM [facility] TOTAL PROTEIN 7.6 6.0 - 8.3 g/dL 10/28/2015 4:28 PM [facility] ALBUMIN 4.4 3.5 - 5.2 g/dL 10/28/2015 4:28 PM [facility] A/G RATIO 1.4 1.0 - 2.0 10/28/2015 4:28 PM [facility] CALCIUM 9.7 8.9 - 10.3 mg/dL 10/28/2015 4:28 PM [facility] T BILI 0.5 0.3 - 1.2 mg/dL 10/28/2015 4:28 PM [facility] SGOT (AST) 25 1 - 32 U/L 10/28/2015 4:28 PM [facility] SGPT (ALT) 19 1 - 33 U/L 10/28/2015 4:28 PM [facility] ALKALINE PHOSPHATASE 98 35 - 105 U/L 10/28/2015 4:28 PM [facility] GFR, EST. NONAFRICAN >60 >=60 10/28/2015 4:28 PM [facility] GFR, EST. >60 >=60 10/28/2015 4:28 PM [facility] Comment: Creatinine Clearance is the preferred criteria for selecting drug dose adjustments in renally impaired patients. The GFR is provided as additional pertinent clinical information. GFR is reported in mL/min/1.73 sq m. Blood specimen (specimen) Venipuncture / Unknown 10/28/2015 1:20 PM CHILD CARE GIVER 10/28/2015 1:24 PM CHILD CARE GIVER us Mart Harris MD CHEMISTRY ORDERABLES Smita rasmussen Result [facility] [address] [place] [address] * HM COLONOSCOPY (05/08/2015) us Yuan Bates MD PROCEDURE/MINOR SURGICAL ORDERAB LES Final Result from Last 3 Months or Most Recently Relevant to Health Maintenance Insurance MEDICARE C [employer] Care Teams Egg Worker Relationship Specialty Start Date End Date Chase Leigh MD [address] [place] [address] PCP - General Family Medicine 02/03/18
--- OUTSIDE RECORDS SUMMARY | 2025-03-31 12:10 | XMS_ITS | Clinical Summary ---
Author Organization [facility] Jamison Tejeda Address [address] [place] [address] Care Team Providers Care Preschool Head Teacher Name Role Phone Federico Meza MD Primary Care Provider [phone] Allergies Active Allergy Reactions Criticality Noted Date [...] Encounters Date Type Department Care Team Description 03/13/2025 External Device Data STL ABSTRACTION Provider, Abstract 02/15/2025 External Device Data ST[facility] ABSTRACTION Provider, Abstract 02/14/2025 External Device Data ST[facility] ABSTRACTION Provider, Abstract 02/13/2025 External Device Data [facility] ABSTRACTION Provider, Abstract 01/30/2025 External Device Data ST[facility] ABSTRACTION Provider, Abstract from Last 3 Months Family History Medical History Relation Name Comments Heart murmur Brother No Known Problems Child 1 No Known Problems Child 2 No Known Problems Father No Known Problems Mother Relation Name Status Comments Brother Alive Child 1 Alive Child 2 Alive Father Mother Social History Tobacco Use Types Packs/Day Years Used Date Smoking Tobacco: Every Day Cigarettes 1 43.5 Started: 09/1981 Alcohol Use Standard Drinks/Week Comments Never 0 (1 standard drink = 0.6 oz pur e alcohol) Comments Unknown Sex and Gender Information Value Date Recorded Sex Assigned at Not on file Legal Sex Female 10:15 AM BEVEL POLISHER Gender Identity Not on file Sexual Orientation Not on file Last Filed Vital Signs Vital Sign Reading Time Taken Comments Blood Pressure 132/73 10/25/2024 2:47 PM BEVEL POLISHER Pulse 81 10/25/2024 2:47 PM BEVEL POLISHER Temperature 36.7 C (98.1 F) 10/25/2024 2:47 PM BEVEL POLISHER Respiratory Rate 15 10/25/2024 2:47 PM BEVEL POLISHER Oxygen Saturation 94% 10/25/2024 2:47 PM BEVEL POLISHER Inhaled Oxygen Concentration - - Weight 88.1 kg (194 lb 3.2 oz) 10/25/2024 2:47 P M BEVEL POLISHER Height 172.7 cm (5' 8) 09/22/2024 1:13 PM BEVEL POLISHER Body Mass Index 29.53 09/22/2024 1:13 PM BEVEL POLISHER Plan of Treatment Health Maintenance Due Date [...] MONTHS 08/21/2023 02/18/2023, 09/2015 INFLUENZA VACCINE (#1) 2025 COLORECTAL SCREENING 05/08/2025 05/08/2015 Colorectal Cancer Screening 05/08/2025 DTAP/TDAP/TD VACCINES (2 - Td or Tdap) 10/19/2028 Insurance CIG C20 Care Teams Preschool Head Teacher Relationship Specialty Start Date End Date Federico Meza MD [address] [place] [address] PCP - General Family Practice 09/12/24
--- OUTSIDE RECORDS SUMMARY | 2025-03-31 12:10 | XMS_ITS | Encounter Summary ---
Author Organization [facility] Address [address] [place] [address] Care Team Providers Care Garde Manger Name Role Phone Federico Meza MD Primary Care Provider [phone] Matthew Leon DPM Unavailable [phone] Encounter Details Date Type Department Care Team (Late st Contact Info) Description 11/11/2022 Telephone [facility] Physical Medicine and Rehabilitation [address] [place] [address] Flavia Freeman, CREDIT REFERENCE CLERK Social History Tobacco Use Types Packs/Day Years Used Date Smoking Tobacco: Every Day Cigarettes Social Connection and Isolation Panel [NHANES] A nswer Date Recorded In a typical week, how many times do you talk on the phone with family, friends, or neighbors? Three times a week 11/03/2022 How often do you get togethe r with friends or relatives? Twice a week 11/03/2022 How often do you attend chur ch or yazidism services? Never 11/03/2022 Do you belong to any clubs o r organizations such as scientology groups, unions, fraternal or athletic groups, or school groups? No 11/03/2022 How often do you attend meet ings of the clubs or organizations you belong to? Never 11/03/2022 Are you , , di vorced, , never , or living with a partner? 11/03/2022 AUDIT-C Answer Date Recorded Q1: How often do you have a drink containing alcohol? Never 07/06/2022 Q2: How many drinks containi ng alcohol do you have on a typical day when you are drinking? Patient does not drink Frequency of Binge Drinking Not on file 06/27 Overall Financial Resource Strain (CARDIA) Answe r Date Recorded How hard is it for you to pa y for the very basics like food, housing, medical care, and heating? Hard 11/03/2022 Hunger Vital Sign Answer Date Recorded Within the past 12 months, y ou worried that your food would run out before you got the money to buy more. Sometimes true Within the past 12 months, t he food you bought just didn't last and you didn't have money to get more. Sometimes true 03/2023 PRAPARE - Transportation Answer Date Re corded In the past 12 months, has l ack of transportation kept you from medical appointments or from getting medications? No 03/2023 In the past 12 months, has l ack of transportation kept you from meetings, work, or from getting things needed for daily living? No 11/03/2022 Education Answer Date Recorded What is the highest level of school you have completed or the highest degree you have received? 11th grade 11/03/2022 Comments No Sex and Gender Information Value Date Recorded Sex Assigned at Not on file Legal Sex Female 12:23 PM APPAREL STOCK CHECKER Gender Identity Not on file Sexual Orientation Not on file documented as of this encounter Plan of Treatment Not on file documented as of this encounter Visit Diagnoses Not on filedocumented in this encounter Additional Health Concerns Infection Onset Date Last Indicated Resolved Time MRSA 07/03/2022 02/18/2023 08/17/2023 3:05 AM APPAREL STOCK CHECKER C. difficile Comment:Flag applied in error. 11/23/2022 11/23/2022 1:59 PM CDT C. difficile suspected 03/24/2024 03/24/202403/24 11:04 PM CDT C. difficile 03/24/2024 03/24/2024 03/24/2025 7:26 PM CDT documented as of this encounter Care Teams Garde Manger Relationship Specialty Start Date End Date Federico Meza MD PCP - General Family Medicine 10/21/21 Matthew Leon DPM [address] [place] [address] Consulting Physician Foot and Ankle Surg 07/16/22 documented as of this encounter
--- OUTSIDE RECORDS SUMMARY | 2025-03-31 12:10 | XMS_ITS | Encounter Summary ---
Author Organization [facility] Healthcare Address [address] [place] [address] Care Team Providers Care Assistant Professor Name Role Phone Federico Meza MD Primary Care Provider + [phone] Matthew Leon DPM Unavailable [phone] Encounter Details Date Type Department Care Team (Late st Contact Info) Description 11/17/2022 Telephone [facility] Physical Medicine and Rehabilitation [id number] [place] [address] Flavia Freeman, BUTCHER SUPERVISOR Social History Tobacco Use Types Packs/Day Years Used Date Smoking Tobacco: Every Day Cigarettes Social Connection and Isolation Panel [NHANES] A nswer Date Recorded In a typical week, how many times do you talk on the phone with family, friends, or neighbors? Three times a week 11/19/2022 How often do you get togethe r with friends or relatives? Twice a week 11/19/2022 How often do you attend chur ch or restorationist services? Never 11/19/2022 Do you belong to any clubs o r organizations such as latter day groups, unions, fraternal or athletic groups, or school groups? No 11/19/2022 How often do you attend meet ings of the clubs or organizations you belong to? Never 11/19/2022 Are you , , di vorced, , never , or living with a partner? 11/19/2022 AUDIT-C Answer Date Recorded Q1: How often do you have a drink containing alcohol? Never 11/19/2022 Q2: How many drinks containi ng alcohol do you have on a typical day when you are drinking? Patient does not drink Q3: How often do you have si x or more drinks on one occasion? Never 11/19/2022 Overall Financial Resource Strain (CARDIA) Answe r Date Recorded How hard is it for you to pa y for the very basics like food, housing, medical care, and heating? Hard 11/19/2022 PHQ-2 Answer Date Recorded PHQ-2 Total Score (If total score is 3 or more points, staff should administer the PHQ-9) 2 11/19/2022 [facility] - Occupational Stress Questionnaire Answer Date Recorded Do you feel stress - tense, restless, nervous, or anxious, or unable to sleep at night because your mind is troubled all the time - these days? To some extent 11/19/2022 Hunger Vital Sign Answer Date Recorded Within the past 12 months, y ou worried that your food would run out before you got the money to buy more. Sometimes true Within the past 12 months, t he food you bought just didn't last and you didn't have money to get more. Sometimes true PRAPARE - Transportation Answer Date Re corded In the past 12 months, has l ack of transportation kept you from medical appointments or from getting medications? No 10/29 In the past 12 months, has l ack of transportation kept you from meetings, work, or from getting things needed for daily living? No 11/19/2022 Housing Stability Vital Sign Answer Christiano e Recorded In the last 12 months, was t here a time when you were not able to pay the mortgage or rent on time? No 11/19/2022 In the last 12 months, how many places have you lived? 1 11/19/2022 In the last 12 months, was t here a time when you did not have a steady place to sleep or slept in a detention (including now)? No 11/19/2022 Education Answer Date Recorded What is the highest level of school you have completed or the highest degree you have received? 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 Never 11/19/2022 12:53 PM Radha Aponte MSW Q2: How many drinks containing alcohol do you have on a typical day when you are drinking? Patient does not drink 11/19/2022 12:53 PM Radha Aponte MSW Q3: How often do you have six or more drinks on one occasion? Never 11/19/2022 12:53 PM Radha Aponte MSW * Over the past 2 weeks, how often have you been bothered by any of the following problems? Question Answer Date of Assessment Author Patient Health Questionnaire -2 Score 2 11/19/2022 12:51 PM Radha Aponte MSW * If you checked off any problems on this questionnaire so far, Question Answer Date of Assessment Author How difficult have these problems made it for you to do your work, take care of things at home, or get along with other people? Not difficult at all 11/19/2022 12:51 PM Radha Aponte MSW * Over the past 2 weeks, how often have you been bothered by any of the following problems? 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 Or the opposite - being so fidgety or restless that you have been moving around a lot more than usual. Not at all 11/19/2022 12:51 PM Radha Aponte MSW Thoughts that you would be better off or hurting yourself in some way Not at all 11/19/2022 12:51 PM Radha Aponte MSW Patient Health Questionnaire-9 Score 4 11/19/2022 12:51 PM Radha Aponte MSW documented as of this encounter Miscellaneous Notes * Pre-Admission Screening - Flavia Freeman SLP - 11/17/2022 1:52 PM [employer] TRUCK DRIVER [facility] Physical Medicine and Rehabilitation Preadmission Screening Reason for Consult: Jeanette Peres is a 57 y.o. female with a medical diagnosis of right osteomyelitis s/p R BKA and Rehab Diagnosis: Right BKA whose probable impairment code for inpatient rehabilitation is: Impairment Code Group: Amputation Amputation: Unilateral Lower Limb Below the Knee The following information was gathered for consideration and maintenance in the medical record to substantiate medical necessity for IRF level of care. Patient is currently at [facility] . The patient is being referred and recommended by Dr. Hussein to be assessed both medically and functionally in regard to their premorbid functional capacity to determine whether they can benefit from a rehabilitation level of care offered by our facility. The following information is regarding the medical complexity and clinical risk factors that need to be considered for the appropriate management of the patient's care and recovery. RECOMMENDATIONS / PLAN: Goals for admission:to resolve all medical issues to optimal level and to improve patient's functional independence to a SBA level for overall self cares, mobility and transfers with least restrictive device Likelihood of reaching these goals:Very Good Medical Prognosis: Medical prognosos appears good due to ongoing medical issues and existing comorbidities Functional Prognosis: Functional prognosis appears good for patient to recover to a SBA level for overall self cares, mobility and transfers with least restrictive device Therapies required to achieve goals:The patient will benefit from integrated coordination of care from the following interdisciplinary services: Medical Supervision, 24 hours Rehabilitation Nursing, Physical Therapy, Occupational Therapy, Case Management, Social Work Expected level of improvement is: very good Expected level of improvement at discharge is: SBA Strengths for achieving goals: Strengths: Able to tolerate intensive inpatient rehab program, Good family/social support Barriers to achieving goals: Barriers: Comorbidities (depression and pain) Expected length of stay: Estimated Length of Stay: 14 days When medically stable, anticipated disposition: Anticipated destination post discharge from inpatient rehab: home with caregiver Information regarding the rehab process including risks/benefits and financial issues were discussed with the patient and/or family and they have agreed to accept rehabilitation risks and benefits. Payor Source: Primary: [place] Secondary:Authorization number [id number] Case discussed with Dr. Betancourt on 11/13/22 @ 1200. Appropriateness for admission to the Inpatient Rehab Facility: yes The Pre-admission screen is an assessment of the patient's medical and functional status and has been reviewed by a rehab physician. It has been determined by the rehab physician that this patient will benefit from a comprehensive inpatient rehab admission to meet the identified goals and manage ongoing medical issues. The physician will provide documentation that supports an inpatient rehab admission including real and potential complications for which the patient is at risk with a plan to manage and avoid those risks HISTORY: Past Medical History: Past Medical History: Diagnosis Date Abdominal distention Arrhythmia Bipolar disorder, unspecified (HCC) Chronic back pain COPD (chronic obstructive pulmonary disease) ([facility]/HCC) (HCC) Depression Diabetes mellitus (HCC) DEJESUS (dyspnea on exertion) Foot fracture H/O diabetic neuropathy Hyperlipidemia Hypertension IBS (irritable bowel syndrome) PTSD (post-traumatic stress disorder) Sleep apnea Tubal Past Surgical History: Past Surgical History: Procedure Laterality Date BREAST BIOPSY CARDIAC CATHETERIZATION CHOLECYSTECTOMY DILATION AND CURETTAGE OF UTERUS HYSTERECTOMY partial Social History: Social History Tobacco Use Smoking status: Every Day Types: Cigarettes Smokeless tobacco: None Substance and Sexual Activity Drug use: Not Currently Sexual activity: Defer Alcohol Use: Not At Risk Frequency of Alcohol Consumption: Never Average Number of Drinks: Patient does not drink Frequency of Binge Drinking: Not on file Patient's Preferred Language: Tristanian Cultural Requests During Hospitalization: none conveyed Acute Conditions/Co-morbidities requiring Acute Rehab: Anemia, Acute renal failure, Wound care, Cellulitis, Uncontrolled DM, Uncontrolled HTN, Uncontrolled pain (Abscess of right lower leg, osteomyelitis of right ankle DM2 Polyneuropathy CKD, CDiff, Anxiety and depression, Cellulitis of right lower extremity, HTN, Acute on chronic anemia Hyperkalemia COPD) HPI: 10/30/22: Internal Medicine H&P Chief Complaint: right ankle wound HPI: Jeanette Peres is a 57 y.o. y/o female with PMH of osteomyelitis of the right foot status post recent right great toe amputation, type 2 diabetes, hypertension, hyperlipidemia, CKD stage 4, COPD, andbipolar disorder who presented to the ED with a new wound on her right lateral ankle that spontaneou sly drained prior to presentation. This area started getting red and tender shortly after her most recent visit to the [facility] 2 days ago. She recently completed a 6 week course of IV antibiotics for osteomyelitis and required amputation of her right great toe followed by wound VAC therapy. I&D was done in the ED with expression of purulent fluid. She also continues to have diarrhea since being diagnosed with C diff on 09/10/22 with 6 BMs in the last 24 hours (feels like pooping acid). Hemoglobin was also lower than usual at 6.4 on arrival and came up to 6.7 after transfusion with 1 unit of PRBCs. ASSESSMENT AND PLAN: Principal Problem: Abscess of right lower leg Active Problems: Acute osteomyelitis of right ankle or foot (CMS/HCC) ([facility]) Type 2 diabetes mellitus with hypoglycemia, without long-term current use of insulin ([facility]) ([facility]) C. difficile colitis Peripheral arterial disease (CMS/HCC) ([facility]) Primary hypertension Polyneuropathy associated with underlying disease ([facility]) ([facility]) Anxiety and depression Chronic renal failure, stage 4 (severe) (CMS/HCC) ([facility]) Cellulitis of right lower extremity Acute on chronic anemia Hyperkalemia COPD (chronic obstructive pulmonary disease) ([facility]/HCC) ([facility]) Resolved Problems: No resolved hospital problems. -Acute on chronic anemia Multifactorial from CKD stage 4 and acute inflammation from osteomyelitis and new abscess. Iron studies consistent with anemia of chronic disease with ferritin elevated at 341 and iron, TIBC, and transferrin saturation all low at 14, 128, and 11, respectively. Hgb willis from 6.4 to 6.7 after transfusion of 1 unit of PRBCs on arrival, will transfuse another unit of PRBCs now. Monitor and transfuse for Hgb<7.0. -Abscess of right lower leg Likely associated with known osteomyelitis with complicated treatment history. Podiatry consulted, debridement planned in OR on Wednesday. ID consulted because of quick recurrence of infection. Will replace IV vancomycin with IV doxycycline because of recent wound culture growing VISA. -C. difficile colitis Continues to have diarrhea after 10 day course of fidoxamicin, will start long vancomycin taper. ID consulted. -Hyperkalemia Potassium level 5.7 on presentation, improved to 5.5 with 1 dose of Lokelma. Will provide 2 additional doses of Lokelma and continue to monitor. -Type 2 diabetes mellitus with hypoglycemia, without long-term current use of insulin ([facility]) ([facility]) Replace home linagliptin with SSI for now, can start basal/bolus regimen if glucose is persistentlyelevated. Past Medical History: ?? Abdominal distention ?? Arrhythmia ?? Bipolar disorder, unspecified ([facility]) ?? Chronic back pain ?? COPD (chronic obstructive pulmonary disease) ([facility]/HCC) ([facility]) ?? Depression ?? Diabetes mellitus ([facility]) ?? DEJESUS (dyspnea on exertion) ?? Foot fracture ?? H/O diabetic neuropathy ?? Hyperlipidemia ?? Hypertension ?? IBS (irritable bowel syndrome) ?? PTSD (post-traumatic stress disorder) ?? Sleep apnea ?? Tubal 10/30/22: Podiatry Consult Reason for Consult: Right lower extremity infection HPI: Jeanette Peres is a 57 y.o. female with chief complaint of worsening infection of the right lower extremity. The patient is well known to me as I have been following [facility] the [facility] for the last several months. She had underwent an amputation of the 1st ray in June of 2022. She subsequently finished a course of 6 weeks of IV antibiotics. An MRI from October 15 2021 showed progressive neuropathic arthropathy with possible overlying osteomyelitis of the right lower extremity. The patienthas been admitted to the hospital today with anemia due to chronic kidney disease and worsening infection of the right lower extremity. Assessment: 1. Cellulitis/abscess right lower extremity status post incision and drainage 2. Diabetic foot ulceration by 2 right lower extremity with probable underlying chronic osteomyelitis 3. Charcot joint right Plan: 1. I did discuss treatment options with the patient. At this time I am concerned of the leg is not salvageable but she seems very hesitant to even consider amputation at this time. I will tentativelyplan for debridement in the OR with bone biopsy on Wednesday. She will continue with IV antibiotic therapy and Infectious Disease have been consulted. We will continue to follow the patient. Thank you for the consultation. CT Ankle Right WO Contrast Result Date: 10/30/2022 Narrative: EXAM DESCRIPTION: CT ANKLE RIGHT WO CONTRAST REASON FOR STUDY: Soft tissue infection suspected, ankle, xray done Right lateral ankle pain and wound for 1 day. Pt had a toe amputated in . Pt also states she fx her ankle 4-5 years ago and had surgery. Blood, pus, and clear fluid drained from wound. Pt is diabetic TECHNIQUE: Multidetector CT scan of the was performed. Coronal and sag ittal images were reconstructed. Dose modulation adjustment of the mA and/or kV has been performed per [facility] protocols according to patient size and indication. COMPARISON: MRI 10/15/2022 radiographs 08/10/2022 FINDINGS: Severe subcutaneous edema. Severe joint effusion around the ankle. Severe osseous erosions and absorption throughout the ankle and foot. Partial 1st metatarsal amputation. Degenerative changes of the midfoot. No definite fluid collections identified. Right lateral fibular fixation plate and threaded screws in place. IMPRESSION: 1. No acute appearing findings. Severe chronic subcutaneous inflammatory changes and overlying skin thickening compatible with severe cellulitis near the amputation site in the 1st ray. 2. Severe osseous erosive and destructive changes throughout themidfoot and hindfoot. Postsurgical changes to the distal fibula. No significant change correlated to prior MRI. 11/02/22: Consultation Infectious Diseases Reason for Consult: Infected right lower extremity ulcerations Chief complaint: Worsening right ankle right foot wounds. HPI: Jeanetteron Peres is a 57 y.o. female past medical history positive for bipolar disorder, COPD, depression, diabetes mellitus type 2, hypertension, dyslipidemia, posttraumatic stress disorder, sleep apnea, known to our service from previous evaluation in June 2022 after admission with MRSA sepsis and right foot osteomyelitis, status post right hallux amputation. Patient had developed a new ulceration in the right lateral ankle that has been spontaneously draining purulence patient was referred to the emergency department for evaluation. Since the admission patient had low-grade fevers with temperatures up to 100.1, initial leukocytosis up to 14,000 which is slowly improving. Patient ontherapy with doxycycline IV plus oral vancomycin. Blood cultures from the admission remain negativehowever wound cultures positive for MRSA. An MRI of the right foot without contrast could not exclude remnant osteomyelitis, and CT of the right ankle without contrast with severe cellulitis and destructive bone changes associated with Charcot foot deformation. Patient has been scheduled for incision and debridement later today by Podiatry. We have been consulted by Dr. Mendez for suggestions on management. 11/05/22: Surgery Consult Subjective: HPI: Jeanette Peres is a 57 y.o. female presenting for surgical evaluation of Evaluation for R BKA Patient reports she has been in and out of sleep all night dreaming she had a right below the knee amputation and emotionally she is resolved to have the procedure. She has been dealing with her foot for approximately 4 years ago she was in her kitchen and her blood glucose was 700 and she passed out and when she woke up her ankle was broken. She had a ray amputation of the great toe and this is still not healing. She reports that she knows she has osteomyelitis and she knows that this is not going to heal and she is ready to proceed. He is on the phone and had lots of questions. Reports the plastering contractor told him about a bone biopsy to check and see how high the infection goes in the bone and asks if she should have this first. She wants to get back to playing with her grandkids and for the last year she has not been able to.She has MRSA growing from her ankle culture. Assessment/Plan Osteomyelitis right lower extremity. She wants a below the knee amputation. Reports that she has very bad luck and she wants to be readyfor any scenario. Discussed several items. One is during surgery would check the health of the bone. If needed would revise the amputation higher later. Discussed the prosthesis process. She does have an abrasion/breakdown with yellow exudate that is pretty high on her anterior sellers which complicates flap closure. Also her diabetes will need to be kept under tight control.She also needs to stop smoking. Discussed the risk and benefits of surgery.She would like to proceed. 11/06/22: DATE OF SURGERY: PREOP DIAGNOSES: Chronic osteomyelitis of nonhealing right foot wound, Charcot's foot POSTOP DIAGNOSES: Chronic osteomyelitis of nonhealing right foot wound, Charcot's foot PROCEDURE: Right below knee amputation INDICATIONS OF PROCEDURE: The patient is a 57-year-old female with longstanding issues with wounds to the right lower extremity with osteomyelitis and Charcot's foot deformity. She had been debrided with implanted hardware by Podiatry for these issues in the past. Given the ongoing and persistent symptoms of active infection and the nonfunctional foot surgery was consulted for amputation. 11/13/22: Psychiatry Consult Reason for consult: Medication management History of Present Illness: 57-year-old female with medical history of chronic kidney disease, right foot Osteomyelitis status post amputation, diabetes mellitus, COPD, peripheral arterial disease, C. diff colitis, hypertension, acute on chronic pneumonia, and bipolar disorder who is admitted on medical floor. Patient was depressed, and tearful 2 days ago after right lower leg amputation. Primary team consulted psychiatry for medication management. On evaluation, patient presented well and reported that she has been feeling better. She denied anyactive suicidal ideations or intent. She denied history of suicidal attempts or self harming behavior. She stated that she still gets phantom pain and she had difficulty staying sleep last night. Shesaid that her daughter visited her and she felt better after talking to her. She has been taking Wellbutrin XL 450 mg daily and reports that has been helping her. She's not interested in adding another medication. Collateral Contacted: No Reason for not contacting the collateral: None available Sleep issues?: Yes Sleep Quantity: 5-6 hours Sleep Quality: difficulty staying asleep Psychiatric History/Treatment History: Past diagnoses: bipolar disorder Hospitalizations: No Current Treatment:Yes Medication management: Yes Medications: Wellbutrin XL 450mg PO daily Therapy:Yes Suicide Assessment: PSS-3: 1) Over the past 2 weeks have you felt down, depressed or hopeless? Yes 2) Over the past 2 weeks have you had thoughts of killing yourself? Yes 3) Have you ever in your life attempted to kill yourself? No Within the past 6 months? PSS-3 Secondary Screen: 1) Positive on PSS-3 questions 2 & 3 - active SI with a past attempt? No 2) Have you been thinking about how you might kill yourself? No 3) Have you had some intention of acting on your thoughts? No 4) Lifetime psychiatric hospitalization? No 5) Has drinking or substance abuse ever been a problem for you? No 6) Current irritability, agitation, or aggression? No PSS-3 Secondary Screen Scoring: Mild Mild (0-2) No current attempt and no plan/intent Moderate (3-4) No current attempt, Plan OR intent but not both Severe (5-6) Current Attempt with Plan AND intent [facility]-based Safety Assessment: Risk Factors Stressors: Recent right leg amputation. Attempts/Self-injury: No Impulsivity:No Drug/Alcohol History:No Trauma History:No Access to firearms:No HI/Violence/Property destruction:No Legal: No Family Psych History:No Family History of suicide:No Protective Factors: Can handle stress well? Yes Tenriism? Yes External: Social supports/ Therapeutic relationships: Yes Relationship history: . Living situation: Lives at home with family. Employment: No Education: High school Responsibility to family/children/work: No Future orientation:Yes Description: She is willing to seek treatment Summary: 57-year-old female with recent exacerbation of depressive symptoms due to right leg amputation. Patient was tearful 2 days ago therefore psychiatric consultation was requested. Today, she presented well and was in upbeat mood. She was optimistic about life and did not report any suicidal ideations or intent. Diagnosis: F31.30 Bipolar disorder, current episode depressed, mild or moderate severity, unspecified CPT Codes: 36323 - Psychiatric Diagnostic Evaluation with Medical Services Treatment Plan: General: Patient is not an imminent danger to self/others and would not benefit from psychiatric hospitalization at this time. She has been compliant with Wellbutrin XL 450mg and is not interested intaking any other medications. It is recommended to follow up with out-patient psychiatric clinic following discharge from hospital. Level of Care: Out patient Psychiatric Clearance: Yes Observation level - 1:1 needed?: No Pharmacological: Continue current medications recommend psychiatric follow up on discharge Patient psychotic?No Therapy: Supportive therapy Follow up needed while in the hospital?: No Discussed plan with onsite long line teamster: Yes Who [facility] 11/14/22: Nephrology Stable renal function and electrolytes. Nothing to add. Will sign off. 11/14/22: Hospitalist Progress Note Subjective: Patient's mood continues to improve. States she feels well today, has some pain where her foot usedto be. No nausea or vomiting today. Hgb is down to 6.9. Stool guaiac was negative. Transfusing 1 unit PRBC. Cr is stable at 2.22, and nephrology has signed off. ASSESSMENT AND PLAN: -Abscess of right lower leg Recurrent osteomyelitis Associated with known osteomyelitis with complicated treatment history. Podiatry consulted, who debrided wound on admission. ID consulted because of quick recurrence of infection. Bone biopsy was done 11/02 which showed osteomyelitis. The patient decided that she did not want to go through another 6 weeks of IV antibiotics and risk incomplete treatment again and elected to have the foot amputated. General surgery was consulted and BKA was performed 11/06. Treated with IV antibiotics since admission, currently daptomycin because of MRSA grown in wound culture. Completed treatment with Daptomycin on 11/13. Post-op management of amputation stump per general surgery, will need SNF placement for rehab. Social work consulted. Pt says pain is adequately controlled. Last dose of iv Dilaudid was on 11/12. Continue po pain meds prn. Chronic renal failure stage 3B Patient had a normal creatinine as recently as June 2022. In /Aug when pt was at the OR patient had elevations in creatinine up to 5.4, with no intervention done. Her creatinine had been around 2- 2.5 during this hospitalization. Nephrology recommendations. US kidneys negative for hydronephrosis. Cr remains stable at 2.22 today. Pt appears to have stable stage 3b CKD. Continue to avoid nephrotoxic agents. Patient will need nephrology follow up as outpatient. C. difficile colitis Pt had continued to have diarrhea after 10 day course of fidoxamicin. Oral vancomycin taper was restarted and ID was consulted. Diarrhea has now resolved, vancomycin dc'ed as pt completed Daptomycin,per ID recs. Hyperkalemia, hypokalemia- resolved Potassium level 5.7 on presentation, has required multiple doses of Lokelma and Veltassa to keep under 5.0. Yesterday pt was hypokalemic. Today K+ is wnl at 4.3. Hyponatremia- resolved Na slightly below normal since admission (127 on arrival), improved with IV fluids, continue to monitor (135 today). Type 2 diabetes mellitus with hypoglycemia, without long-term current use of insulin ([facility]) ([facility]) Continue Lantus 10 units qhs and lispro 3 units tid ac + SSI. Accuchecks are well controlled. Monitor glucose and adjust insulin as necessary. Anemia due to iron deficiency and chronic kidney disease Has needed a total of 5 units so far this admission. Hgb is again low at 6.9 today, transfusing 1 unit PRBC. Transferrin saturation is low at 11 %. FOBT was negative. Continue ferric gluconate 3 X weekly. Monitor closely and transfuse if Hgb <7.0. Elevated BP Patient was not on any BP meds at home and has no formal diagnosis of HTN. Here was noted to be consistently hypertensive. BP has improved with amlodipine 10mg and hydralazine 25 mg tid started. Will continue to monitor. Bipolar disorder with depression Pt had been depressed since she had the amputation and had some trouble coming to terms with it, although is doing a little better emotionally in the last 2 days. Psych consult appreciated, continue home Wellbutrin 450 mg, and f/u with own psychiatrist as outpatient. 11/15/22: GASTROENTEROLOGY CONSULT Reason for Consult: Chronic intermittent nausea vomiting Subjective: History of Present Illness: Jeanette Peres is a 57 y.o. female with a PMH significant for COPD, type 2 diabetes, CKD, HTN, HLD,MILIND, osteomyelitis who presented to the hospital with new ulcer on the right foot concerning for osteomyelitis. She has undergone debridement on admission followed by BKA on 11/06 with surgery. Woundculture positive for MRSA status post treatment with daptomycin. Hospital course also complicated by diarrhea, of note she had hx of C diff 08/2022. She received 10 days of fidaxomicin with persistence of diarrhea and was placed on vancomycin taper by ID with resolution of diarrhea. Vanc was stopped after she finished her daptomycin. GI consulted for chronic intermittent nausea and vomiting. Patient states that her nausea vomiting started back in June when she was first hospitalized forosteomyelitis. It usually comes on sporadically with or without food. The emesis is nonbloody, nonbilious. She does not think the Zofran is helping. She has some abdominal pain right before her nausea. She denies any reflux, heartburn, dysphagia, odynophagia, constipation, diarrhea, hematochezia melena. She denies any regular NSAID use. Family history of father with some type of GI issue that could be malignancy but she is not sure She is a smoker, denies any alcohol or illicit drug use Assessment: Jeanette Peres is a 57 y.o. female with a PMH significant for COPD, type 2 diabetes, CKD, HTN, HLD,MILIND, osteomyelitis who presented to the hospital with new ulcer on the right foot concerning for osteomyelitis now status post BKA. GI consult for chronic intermittent nausea vomiting # chronic intermittent nausea vomiting Ongoing since June of last year, happens sporadically with or without food. Emesis is nonbloody and nonbilious. EGD from 06/2019 showed erosive gastritis without H pylori. Esophagus was noted to be normal. CT abdomen pelvis 07/2022 with no acute findings. Normal CT head 06/2022 Suspect gastroparesis secondary to DM and narcotic pain medication vs side effect from prolonged antibiotic use vs gastritis/esophagitis vs psychogenic nausea vomiting # diarrhea # C diff colitis Resolved S/p 10 days of fidaxomicin and vancomycin taper # iron deficiency anemia No signs of overt bleeding, currently getting iron supplement Normal gastric and small-bowel biopsies from 2018 Two small tubular adenomas from colonoscopy 2018 however prep was inadequate and recommended repeatin 1 year # osteomyelitis S/p BKA, off antibiotics now, overall doing well waiting for rehab placement Recommendations: Start reglan TID before meals Continue daily PPI Minimize narcotic pain medication use Plan for EGD tomorrow Keep patient NPO at midnight Will need outpatient colonoscopy given inadequate prep from 201811/17/22: Gastroenterology Inpatient Note Reason for consult: Nausea and vomiting HPI: Has 24 hour records reviewed. Patient underwent EGD yesterday which noted chronic gastritis and mild reflux esophagitis. She was advised to continue 40 mg Protonix daily and slowly advance diet as tolerated. H pylori test pending. She remains on Reglan 10 mg t.i.d.. She notes to having episodes of diarrhea last night; she was given something to help and has not had any further episodes this morning. She is sitting at bedside eating her breakfast which is clears, she is really wanting to advance to solid food today. Denies any current nausea, vomiting, abdominal pain. Gastroenterology Impression/Plan/Recommendations: Chronic nausea and vomiting Since June of last year. Starting to improve. EGD from yesterday noted gastritis and reflux esophagitis. Continue 40mg protonix daily. Continue 10mg reglan TID. Will advance to diabetic diet. C diff with diarrhea Resolved after a regimen of fidaxomicin and vancomycin taper. Iron deficiency anemia Hgb low but stable. No signs of overt bleeding; guaiac negative. Continue iron supplement. Prior to admission, patient was independent with ADLs, transfers and ambulation Currently, patient requires Min - Mod A for transfers; Ind for bed mobility, dressing and grooming;NWB RLE Due to ongoing medical issues and a significant decline in patient's functional independence, patient is not referred for acute inpatient rehab program. Date of Onset: Date of Onset: 10/29/22 Date Admitted to Acute: Date admitted to acute: 10/29/22 Precautions/Restrictions: Falls Weight Bearing Precautions: NWB RLE [place] Suicide Severity Rating Scale: Allergies: Allergies Allergen Reactions Ceftriaxone Rash Iodinated Contrast Media Hives and Rash Povidone-Iodine Hives and Rash (surgical scrub) Code Status: Full Code Vitals: There were no vitals filed for this visit. Current Systems Summary: Height: 172.7 cm (5' 8) Weight: 80.7 kg (178 lb) Diet: Adult Diet Restricted; Low Fat, Low Chol, Low Na; Consistent Carbohydrate: General starting at 11/17 0932 Oral Nutrition Supplements Select Supplement: Jacques starting at 11/03 1700 Bedtime snack: snacks starting at 10/30 2100 Bladder: Continent Bowel: Continent Date of last BM: 11/17/22 Integumentary: Surgical Site 11/06/22 Right Leg 11 days Cardiopulmonary: Room air Dialysis: N/A Pain: Patient has pain that is controlled on current regimen IVs: Current meds: Current Facility-Administered Medications on File Prior to Visit Medication Dose Route Frequency Provider Last Rate Last Admin acetaminophen (TYLENOL) tablet 650 mg 650 mg oral Q4H PRN Shruthi Willis MD 650 mg at 11/13/22 5615 amLODIPine (NORVASC) tablet 10 mg 10 mg oral Daily Shruthi Willis MD 10 mg at 11/17/22 0833 bisacodyl EC (DULCOLAX EC) tablet 10 mg 10 mg oral Daily PRN Shruthi Willis MD 10 mg at 11/14/22 0917 buPROPion XL (WELLBUTRIN XL) 24 hour tablet 450 mg 450 mg oral Daily Shruthi Willis MD 450 mgat 11/17/22 0832 dextrose gel in packet 15 g 15 g oral Q15 Min PRN Shruthi Willis MD 15 g at 11/10/22 0647 Or dextrose (D10W) 10% bolus 250 mL 250 mL intravenous Q15 Min PRN Shruthi Willis MD 1,000 mL/hrat 11/06/22 0638 250 mL at 11/06/22 0638 enoxaparin (LOVENOX) syringe 30 mg 30 mg subcutaneous Daily-2100 Shruthi Willis MD 30 mg at 11/16/222032 ferric gluconate (FERRLECIT) 125 mg of elemental iron in sodium chloride 0.9% 100 mL IVPB 125 mg ofelemental iron intravenous Once per day on Wed Shruthi Willis MD 110 mL/hr at 11/16/22 09 125 mg of elemental iron at 11/16/22954 fluticasone propionate (FLONASE) 50 mcg/actuation nasal spray 1 spray 1 spray each nostril BID Shruthi Willis MD 1 spray at 11/16/22 0900 gabapentin (NEURONTIN) capsule 300 mg 300 mg oral Nightly Shruthi Willis MD 300 mg at 11/16/222026 glucagon injection 1 mg 1 mg intramuscular Q30 Min PRN Shruthi Willis MD hydrALAZINE (APRESOLINE) injection 10 mg 10 mg intravenous Q6H PRN Shruthi Willis MD 10 mg at11/09/22 1605 hydrALAZINE (APRESOLINE) tablet 25 mg 25 mg oral TID Shruthi Willis MD 25 mg at 11/17/22 0833 insulin glargine (LANTUS, BASAGLAR, SEMGLEE) 100 unit/mL (3 mL) pen injection 10 Units 10 Units subcutaneous Nightly Shruthi Willis MD 10 Units at 11/16/222033 insulin lispro (HumaLOG, ADMELOG) 100 unit/mL pen injection 0-10 Units 0-10 Units subcutaneous TID with meals Shruthi Willis MD 4 Units at 11/17/22 1239 insulin lispro (HumaLOG, ADMELOG) 100 unit/mL pen injection 0-5 Units 0-5 Units subcutaneous Nightly Shruthi Willis MD 1 Units at 11/16/222033 insulin lispro (HumaLOG, ADMELOG) 100 unit/mL pen injection 3 Units 3 Units subcutaneous TID with meals Shruthi Willis MD 3 Units at 11/17/22 1239 [COMPLETED] loperamide (IMODIUM) capsule 2 mg 2 mg oral Once Kenn Pandey MD 2 mg at 11/17/22 0026 LORazepam (ATIVAN) tablet 0.5 mg 0.5 mg oral Q8H PRN Shruthi Willis MD 0.5 mg at 11/15/22 1447 magnesium hydroxide (MILK OF MAGNESIA) 80 mg/mL (33.3 mg/mL as elemental magnesium) oral [id number] mL 30 mL oral Daily PRN Shruthi Willis MD metoclopramide (REGLAN) tablet 10 mg 10 mg oral TID AC Shruthi Willis MD 10 mg at 11/17/22 1240 mineral oil (FLEET MINERAL OIL) enema 133 mL 1 enema rectal Daily PRN Shruthi Willis MD ondansetron ODT (ZOFRAN-ODT) disintegrating tablet 4 mg 4 mg oral Q6H PRN Shruthi Willis MD 4mg at 11/14/22 1458 Or ondansetron (ZOFRAN) injection 4 mg 4 mg intravenous Q6H PRN Shruthi Willis MD 4 mg at 11/12/222002 ondansetron (ZOFRAN) injection 4 mg 4 mg intravenous Q30 Min PRN Shruthi Willis MD oxyCODONE (ROXICODONE) tablet 5 mg 5 mg oral Q4H PRN Shruthi Willis MD 5 mg at 11/16/[address] (PROTONIX) extended release tablet 40 mg 40 mg oral Daily Shruthi Willis MD 40 mg at 11/17/22 0832 sodium chloride 0.9% flush 0.5-20 mL 0.5-20 mL intra-catheter Q8H [facility] Shruthi Willis MD 10 mLat 11/17/22 0550 sodium chloride 0.9% flush 0.5-20 mL 0.5-20 mL intra-catheter PRN Shruthi Willis MD traZODone (DESYREL) tablet 150 mg 150 mg oral Nightly PRN Shruthi Willis MD 150 mg at 11/16/22 2203 [DISCONTINUED] benzocaine (HURRICAINE) 20 % mouth spray mouth/throat PRN Samuel, Sadie M., CIVIL STRUCTURAL DESIGNER 1 spray at 11/16/22 1555 [DISCONTINUED] lidocaine (XYLOCAINE) 20 mg/mL (2 %) preservative free injection intravenous PRN Samuel, Sadie M., CIVIL STRUCTURAL DESIGNER 100 mg at 11/16/22 1557 [DISCONTINUED] propofoL (DIPRIVAN) 10 mg/mL IV intravenous PRN Samuel, Sadie M., CIVIL STRUCTURAL DESIGNER 20 mg at 11/16/22 1600 [DISCONTINUED] sodium chloride 0.9% flush 5-10 mL 5-10 mL intra-catheter Q12H [facility] Shruthi Willis MD 10 mL at 11/16/22 2035 [DISCONTINUED] sodium chloride 0.9% flush 5-20 mL 5-20 mL intra-catheter PRN Shruthi Willis MD 10 mL at 11/08/22 0512 [DISCONTINUED] sodium chloride 0.9% infusion 30 mL/hr intravenous Continuous Marcial Rodriguez MD 100 mL/hrat 11/16/22 1553 Rate Verify at 11/16/22 1553 Current Outpatient Medications on File Prior to Visit Medication Sig Dispense Refill buPROPion XL (WELLBUTRIN XL) 450 mg 24 hr tablet Take 450 mg by mouth daily calcium carbonate (Tums) 500 mg (200 mg elemental) chewable tablet Take 2 tablet/chew tab (1,000 mgtotal) by mouth 3 (three) times a day 180 tablet/chew tab 0 famotidine (PEPCID) 20 mg tablet Take 1 tablet (20 mg total) by mouth daily 30 tablet 0 fluticasone propionate (FLONASE) 50 mcg/actuation nasal spray Administer 1 spray into each nostril 2 (two) times a day 1 each 0 gabapentin (NEURONTIN) 300 mg capsule Take 1 capsule (300 mg total) by mouth 3 (three) times a day 90 capsule 0 HumaLOG 200 unit/mL (3 mL) pen for injection INJECT 10 UNITS SUBCUTANEOUSLY THREE TIMES DAILY WITH MEALS DIRECTED PER SLIDING SCALE. MAX DAILY DOSE OF 70 UNITS linaGLIPtin (TRADJENTA) 5 mg tablet Take 1 tablet (5 mg total) by mouth daily 30 tablet 0 metoclopramide (REGLAN) 10 mg tablet Take 1 tablet (10 mg total) by mouth 3 (three) times a day before meals 90 tablet 0 ondansetron (Zofran) 4 mg tablet Take 1 tablet (4 mg total) by mouth daily as needed for nausea or vomiting 20 tablet 0 oxyCODONE (ROXICODONE) 5 mg immediate release tablet Take 1 tablet (5 mg total) by mouth every 4 (four) hours as needed for pain for up to 10 doses 10 tablet 0 [START ON 11/18/2022] pantoprazole DR (PROTONIX) 40 mg EC tablet Take 1 tablet (40 mg total) by mouth daily 30 tablet 11 pen needle, diabetic 31 gauge x 15/64 needle USE 1 NEW PEN NEEDLE FIVE TIMES DAILY traZODone (DESYREL) 150 mg tablet Take 1 tablet (150 mg total) by mouth nightly 30 tablet 0 triamcinolone (KENALOG) 0.5 % ointment APPLY 1 GRAM OF OINTMENT TOPICALLY TWICE DAILY TO RASH ON LEG vancomycin (VANCOCIN) 125 mg capsule TAKE 1 CAPSULE BY MOUTH 4 TIMES DAILY FOR 14 DAYS THEN TAKE 1 CAPSULE BY MOUTH TWICE DAILY FOR 7 DAYS THEN TAKE 1 CAPSULE BY MOUTH ONCE DAILY FOR 7 DAYS THEN TAKE1 CAPSULE BY MOUTH EVERY 2-3 DAYS FOR 4 WEEKS [DISCONTINUED] DAPTOmycin (CUBICIN) 50 mg/mL injection Infuse 8.9 mL (445 mg total) into a venous catheter every other day 186.9 mL 0 Substance abuse history: Jeanette Peres reports that she has been smoking cigarettes. She does not have any smokeless tobacco history on file. She reports that she does not currently use drugs. Patient denies consuming alcoholic drinks. Diagnostic Tests: Recent Results (from the past 72 hour(s)) POCT glucose Collection Time: 11/14/22 4:53 PM Result Value Ref Range Glucose, POC 91 71 - 98 mg/dL POCT glucose Collection Time: 11/14/22 7:35 PM Result Value Ref Range Glucose, POC 152 (H) 71 - 98 mg/dL POCT glucose Collection Time: 11/14/22 9:59 PM Result Value Ref Range Glucose, POC 158 (H) 71 - 98 mg/dL POCT glucose Collection Time: 11/15/22 2:43 AM Result Value Ref Range Glucose, POC 133 (H) 71 - 98 mg/dL CBC without differential Collection Time: 11/15/22 4:47 AM Result Value Ref Range WBC 6.9 3.8 - 9.9 K/cumm Hgb 8.3 (L) 11.9 - 15.5 g/dL Hct 25.4 (L) 35.6 - 45.5 % Plt 246 150 - 400 K/cumm MPV 9.8 9.1 - 12.3 fL RBC 2.87 (L) 3.90 - 5.20 M/cumm MCV 88.5 81.3 - 96.4 fL MCH 28.9 27.1 - 33.3 pg MCHC 32.7 32.3 - 35.7 g/dL RDW CV 16.3 (H) 11.1 - 14.9 % RDW SD 53.2 (H) 35.7 - 48.1 fL NRBC abs 0.00 0.00 - 0.01 K/cumm POCT glucose Collection Time: 11/15/22 7:53 AM Result Value Ref Range Glucose, POC 100 (H) 71 - 98 mg/dL POCT glucose Collection Time: 11/15/22 11:49 AM Result Value Ref Range Glucose, POC 113 (H) 71 - 98 mg/dL POCT glucose Collection Time: 11/15/22 4:56 PM Result Value Ref Range Glucose, POC 170 (H) 71 - 98 mg/dL POCT glucose Collection Time: 11/15/22 9:21 PM Result Value Ref Range Glucose, POC 119 (H) 71 - 98 mg/dL POCT glucose Collection Time: 11/16/22 2:46 AM Result Value Ref Range Glucose, POC 126 (H) 71 - 98 mg/dL CBC without differential Collection Time: 11/16/22 6:21 AM Result Value Ref Range WBC 6.7 3.8 - 9.9 K/cumm Hgb 8.4 (L) 11.9 - 15.5 g/dL Hct 25.2 (L) 35.6 - 45.5 % Plt 255 150 - 400 K/cumm MPV 9.3 9.1 - 12.3 fL RBC 2.85 (L) 3.90 - 5.20 M/cumm MCV 88.4 81.3 - 96.4 fL MCH 29.5 27.1 - 33.3 pg MCHC 33.3 32.3 - 35.7 g/dL RDW CV 16.8 (H) 11.1 - 14.9 % RDW SD 54.5 (H) 35.7 - 48.1 fL NRBC abs 0.00 0.00 - 0.01 K/cumm Basic metabolic panel Collection Time: 11/16/22 6:21 AM Result Value Ref Range Sodium 134 (L) 135 - 145 mmol/L Potassium, pl 4.0 3.3 - 4.9 mmol/L Chloride 101 97 - 110 mmol/L CO2 23 22 - 32 mmol/L Anion gap 10 2 - 15 mmol/L BUN 55 (H) 8 - 25 mg/dL Creatinine 2.24 (H) 0.60 - 1.10 mg/dL Glucose 106 70 - 199 mg/dL Calcium 9.0 8.5 - 10.3 mg/dL eGFR Collection Time: 11/16/22 6:21 AM Result Value Ref Range eGFR 25 mL/min/1.73 m2 POCT glucose Collection Time: 11/16/22 7:53 AM Result Value Ref Range Glucose, POC 111 (H) 71 - 98 mg/dL POCT glucose Collection Time: 11/16/22 11:22 AM Result Value Ref Range Glucose, POC 120 (H) 71 - 98 mg/dL POCT glucose Collection Time: 11/16/22 5:26 PM Result Value Ref Range Glucose, POC 106 (H) 71 - 98 mg/dL POCT glucose Collection Time: 11/16/22 8:30 PM Result Value Ref Range Glucose, POC 190 (H) 71 - 98 mg/dL POCT glucose Collection Time: 11/17/22 2:02 AM Result Value Ref Range Glucose, POC 96 71 - 98 mg/dL CBC without differential Collection Time: 11/17/22 5:51 AM Result Value Ref Range WBC 6.2 3.8 - 9.9 K/cumm Hgb 8.2 (L) 11.9 - 15.5 g/dL Hct 24.7 (L) 35.6 - 45.5 % Plt 231 150 - 400 K/cumm MPV 9.7 9.1 - 12.3 fL RBC 2.78 (L) 3.90 - 5.20 M/cumm MCV 88.8 81.3 - 96.4 fL MCH 29.5 27.1 - 33.3 pg MCHC 33.2 32.3 - 35.7 g/dL RDW CV 16.8 (H) 11.1 - 14.9 % RDW SD 54.5 (H) 35.7 - 48.1 fL NRBC abs 0.00 0.00 - 0.01 K/cumm POCT glucose Collection Time: 11/17/22 7:39 AM Result Value Ref Range Glucose, POC 87 71 - 98 mg/dL POCT glucose Collection Time: 11/17/22 11:48 AM Result Value Ref Range Glucose, POC 201 (H) 71 - 98 mg/dL COVID-19 Coronavirus RNA Nasopharyngeal Collection Time: 11/17/22 12:09 PM Specimen: Nasopharyngeal Result Value Ref Range COVID-19 RNA Negative Negative Prior Functional Status: Mobility status/Ambulation aid/assistive devices: Transfers: Independent Walking: Independent Stair negotiation: Independent Falls: Has the patient had 2 or more falls in the past year or any fall with injury in the past year?: Yes Activities of daily living (ADL) status/ Assistive devices used for ADLs: Dressing: Independent Bathing: Independent Toileting: Independent Bladder: Continent Bowel: Continent Domestic Chores: Independent Functional limitations: Sensory Vision: Normal Cognition: Intact Communication: Normal Home Setting: One story home Prehospital Lives With: Spouse Exterior Home Access: Steps Current functional status: ADL: OT Functional Mobility: 11/17/22: transfers Min-Mod A (11/17/2022 1:37 PM) OT Self Care: grooming dressing - Independent (11/17/2022 1:37 PM) OT Cognition: WFL (11/17/2022 1:37 PM) OT Communication: WFL (11/17/2022 1:37 PM) Mobility/Transfers: PT Functional Mobility: 11/17/22: No ambulation; bed mobility Independent; transfers MIN-MOD A (11/17/2022 1:37 PM) Cognition/Communication/Swallowing: BUTCHER SUPERVISOR Cognition: wfl (11/17/2022 1:37 PM) BUTCHER SUPERVISOR Communication: wfl (11/17/2022 1:37 PM) Conditions requiring acute rehab and risk for complications: Gait dysfunction - risk for falls and further injury, fracture Diabetes - risk for hypoglycemic episodes Uncontrolled Hypertension - risk for stroke, stroke extension, IA Decreased mobility - Risk for Fall, skin breakdown, further injury, decompensation, muscle flaccidity Balance Issues- Risk for Fall, further injury Amputation -Risk for Fall, decreased safety, further injury, decompensation Bowel and Bladder Regime- Risk for constipation, bowel obstruction, bladder retention, Infection Alternative Level of Care considered and not appropriate due to: Daily MD oversight, Medication adjustment/oversight, Consult physician oversight Patient/Caregiver Goals: Patient and Family Goals: to return home with family at highest level of functional independence Cosigned by Ruib Betancourt MD at 11/17/2022 2:17 PM MILK PICKUP TRUCK DRIVER PICKUP TRUCK DRIVER PICKUP TRUCK DRIVER Associated attestation - Rubi Betancourt MD - 11/17/2022 2:17 PM MILK PICKUP TRUCK DRIVER Rehab Referral Decision: Approved I have reviewed this patient Pre-admission Screening Information.The patient is medically stable toparticipate in an inpatient rehabilitation program. In my rehabilitation experience and professional judgement, this patient meets medical necessity criteria and requires an inpatient rehabilitation stay to manage current nursing and medical issues. The patient requires supervision by a rehabilitation physician at least three times a week. The patient requires the Interdisciplinary team approach of an inpatient rehabilitation program. This patient can reasonably expect to participate and benefit from the intensive Inpatient rehabilitation program offered at [facility] . documented in this encounter Plan of Treatment Not on file documented as of this encounter Visit Diagnoses Not on filedocumented in this encounter Additional Health Concerns Infection Onset Date Last Indicated Resolved Time MRSA 07/03/2022 02/18/2023 08/17/2023 3:05 AM MILK PICKUP TRUCK DRIVER C. difficile Comment:Flag applied in error. 11/23/2022 11/23/2022 1:59 PM CDT C. difficile suspected 03/24/2024 03/24/202403/24 11:04 PM CDT C. difficile 03/24/2024 03/24/2024 03/24/2025 7:26 PM CDT documented as of this encounter Care Teams Assistant Professor Relationship Specialty Start Date End Date Federico Meza MD PCP - General Family Medicine 10/21/21 Matthew Leon DPM [id number] [place] [address] Consulting Physician Foot and Ankle Surg 07/16/22 documented as of this encounter
--- OUTSIDE RECORDS SUMMARY | 2025-03-31 12:10 | XMS_ITS | Clinical Summary ---
Author Organization [facility] [place] [address] Address [address] [place] [address] Care Team Providers Care Instructor Adjunct Surgical Technician Name Role Phone Federico Meza MD Primary Care Provider + [phone] Matthew Leon DPM Unavailable [phone] Allergies Active Allergy Reactions Criticality Noted Date Comments Ceftriaxone Rash High 08/25/2022 Iodinated Contrast Media Hives,Rash Medium 04/29/2022 Povidone-Iodine Hives,Rash Medium 04/29/2022 (surgical scrub) Medications amLODIPine (NORVASC) 10 mg tablet Take 1 tablet (10 mg total) by mouth daily 30 tablet 11 3 Active Additional Information Patient taking differently:10 mg oralDaily before breakfast, Indications: hypertension, Informant: Self, Reported on 03/13/2025 traZODone (DESYREL) 150 mg tablet Take 1 tablet (150 mg total) by mouth nightly 3 Active sertraline (ZOLOFT) 100 mg tablet Take 1 tablet (100 mg total) by mouth daily before breakfast 3 Active atorvastatin (LIPITOR) 10 mg tablet Take 1 tablet (10 mg total) by mouth nightly 3 Active Dexcom G7 Sensor device 1 Application once Left arm 3 Active buPROPion XL (WELLBUTRIN XL) 300 mg 24 hr tablet Take 1 tablet (300 mg total) by mouth every morning 3 Active HumaLOG 200 unit/mL (3 mL) pen for injection Inject 1-5 Units as directed 3 (three) times a day before meals Sliding scale: 150-200 1 units, 201-250 2 units, 251-300 3 Units, 301-350 4 units, 351-400 5 units, 401-call PCP 3 Active hydrALAZINE (APRESOLINE) 25 mg tablet Take 1 tablet (25 mg total) by mouth 3 (three) times a day Active brexpiprazole (Rexulti) 2 mg tablet Take 1 tablet (2 mg total) by mouth daily before breakfast Active furosemide (LASIX) 20 mg tablet Take 1 tablet (20 mg total) by mouth every morning 4 Active Additional Information Patient taking differently:20 mg oral Every morning,Indications: Renal Disease with Edema, Informant: Self, Reported on 03/13/2025 cholecalciferol (VITAMIN D-3) 2000 unit capsule Take 1 capsule (2,000 Units total) by mouth daily before breakfast Active cyanocobalamin (Vitamin B-12) 1,000 mcg tablet Take 1 tablet (1,000 mcg total) by mouth daily before breakfast Active gabapentin (NEURONTIN) 300 mg capsule Take 1 capsule (300 mg total) by mouth 3 (three) times a day 4 Active metoclopramide (REGLAN) 5 mg tablet Take 1 tablet (5 mg total) by mouth 2 (two) times a day 4 Active tacrolimus (PROTOPIC) 0.1 % ointment Apply 1 Application topically 2 (two) times a day Purple coloration to legs with dry skin 5 Active POTASSIUM ORAL Take 99 mg by mouth 2 (two) times a day Supplement Active ferrous gluconate 324 mg (37.5 mg of elemental iron) tablet Take 1 tablet (324 mg total) by mouth 2 (two) times a day Supplement Active multivitamin with minerals tablet Take 1 tablet by mouth daily before breakfast Hair, skin, nails Active oxyCODONE (ROXICODONE) 5 mg immediate release tabletIndicatio ns:Pain Take 1 tablet (5 mg total) by mouth every 4 (four) hours as needed for pain 10 tablet 5 Active Active Problems Problem Noted Date Diagnosed Date Chronic kidney disease (CKD), stage V 02/15/2025 Metabolic acidosis 03/28/2024 C. difficile diarrhea 03/24/2024 Chronic rhinitis 06/14/2023 Overview (06/14/2023): PNAR Deviated nasal septum 06/14/2023 Overview (06/14/2023): (acquired) Iron metabolism disorder 06/14/2023 Nasal turbinate hypertrophy 06/14/2023 MILIND (obstructive sleep apnea) 06/14/2023 Tonsillar hypertrophy 06/14/2023 BKA stump complication 06/14/2023 Wound of right leg, initial encounter 02/18/2023 Assessment & Plan (02/23/2023 7:15 PM CDT): Pt presented after mechanical fall at home landing on her R BKA causing dehiscence of her scar with reported probing to the bone. Surgery consulted and taken to OR on 02/19 for revision. Per op note: The patient had 2 openings (midportion of the previous incision that was 1.5 x 1 cm and superolateral to this a 1 x 1 cm opening). A small amount of necrotic skin edges and underlying subcutaneous tissue debrided. The amount of debridement was 2 x 1 cm. At this time a wound VAC was applied. Continue Wound Care Vancomycin q48 hrs for a total of 3 doses (02/18 - 02/22) WBC 02/22: 9.4 (9.0) - Okay for discharge once home health is arranged per surgery Open wound 12/10/2022 S/P BKA (below knee amputation), right 3 Assessment & Plan (02/19/2023 2:30 PM CDT): Occurred 11/19 secondary to osteomyelitis. See A&P under 'wound of right leg'. Anemia due to chronic kidney disease, unspecifie d CKD stage 10/30/2022 Acute on chronic anemia 10/30/2022 Assessment & Plan (10/30/2022 1:44 PM WHEY DEPARTMENT OPERATOR): Multifactorial from CKD stage 4 and acute [...] PRBCs now. Monitor and transfuse for Hgb<7.0. Hyperkalemia 10/30/2022 Assessment & Plan (10/30/2022 1:42 PM WHEY DEPARTMENT OPERATOR): Potassium level 5.7 on presentation, improved to 5.5 with 1 dose of Lokelma. Will provide 2 additional doses of Lokelma and continue to monitor. COPD (chronic obstructive pulmonary disease) 11/2022 Assessment & Plan (02/19/2023 2:24 PM CDT): Not in exacerbation. No home meds. Monitor. Chronic renal failure, stage 4 (severe) 09/08/20 Assessment & Plan (02/23/2023 7:16 PM CDT): Stable CKD4 with Cr 2.11 (02/20) over baseline of around 2.2. - monitor BMP particularly while on Vancomycin Cr 02/23: 2.13 Assessment & Plan (09/22/2022 12:02 PM WHEY DEPARTMENT OPERATOR): Continue to encourage p.o. fluid intake, creatinine increased to over 5, has now returned back to baseline around 3.2 Assessment & Plan (09/15/2022 12:08 PM WHEY DEPARTMENT OPERATOR): Renal function slowly improving, continue oral fluid intake. Assessment & Plan (09/14/2022 9:47 AM WHEY DEPARTMENT OPERATOR): Cr remains high, adding more IVF with potassium supplement added also. Follow daily labs. Antibiotics remain on hold 2/2 renal function Assessment & Plan (09/11/2022 2:21 PM WHEY DEPARTMENT OPERATOR): Cr continues to improve. Vivativ remains on hold, unsure on restarting, still above current baseline since admission. Receiving IVF today, 3rd bag. Recheck labs Wednesday. Assessment & Plan (09/11/2022 10:00 AM WHEY DEPARTMENT OPERATOR): Creatinine improved from 5.10-5 today. Continue IV fluid. Will repeat renal function a.m.. If creatinine worsens, may consider transferring patient to ER Assessment & Plan (09/08/2022 1:20 PM WHEY DEPARTMENT OPERATOR): Patient with acute change in creatinine up to 5.0, IV fluids initiated, we will repeat labs in a.m. encouraged p.o. fluid intake if possible. If patient's blood pressure changes, has any other clinical decline would recommend returning to emergency department for nephrology evaluation. COVID 08/25/2022 Assessment & Plan (09/22/2022 12:04 PM WHEY DEPARTMENT OPERATOR): Diagnosed with COVID on 07/03/2022, again positive on 08/22/2022 but patient was asymptomatic and did not require any further treatment. Continue supportive care Assessment & Plan (09/08/2022 1:24 PM WHEY DEPARTMENT OPERATOR): Clinical change with increased rhonchi, sats stable but will check CXR with new leukocytosis. Patient originally diagnosed with COVID on 07/03/2022 underwent treatment during hospital stay then. Had a new positive test 08/22/2022 on routine facility testing, has chronic congested cough but otherwise had no new symptoms. Assessment & Plan (09/01/2022 8:50 PM WHEY DEPARTMENT OPERATOR): Pt asymptomatic.Requesting repeat testing. Pt comes off isolation in am, so repeat testing is not necessary. Continue supportive care Assessment & Plan (08/26/2022 4:23 PM WHEY DEPARTMENT OPERATOR): Patient reports that she did have a negative COVID test after her recent COVID illness on 07/03/2022, follow-up testing was positive on 08/22/2022 on routine facility testing. Patient feels that she does have a congested cough which may or may not be new for her. Otherwise has remained asymptomatic. We will continue supportive care. She will remain on isolation for 10 days Assessment & Plan (08/25/2022 11:35 AM WHEY DEPARTMENT OPERATOR): Pt diagnosed with COVID 08/22 on routine facility testing, pt asymptomatic at present. Pt previously diagnosed with COVID 07/03/22 - so doubt this is a new infection. Will continue to offer supportive care. Gross hematuria 08/25/2022 Assessment & Plan (08/27/2022 11:48 AM WHEY DEPARTMENT OPERATOR): UA ordered for Wednesday but no results - have notified nursing and asked to collect. Assessment & Plan (08/25/2022 11:54 AM WHEY DEPARTMENT OPERATOR): Check UA - h/h lower, not lenora blood. Pt is on heparin - will place on hold for now. Other specified anemias 08/25/2022 Assessment & Plan (09/22/2022 12:02 PM WHEY DEPARTMENT OPERATOR): H&H continues to improve, did receive some Epogen during her stay. Continue iron supplementation Assessment & Plan (09/14/2022 9:48 AM WHEY DEPARTMENT OPERATOR): H/H lower, will give epo today, recheck in am, may need transfusion Assessment & Plan (09/11/2022 2:23 PM WHEY DEPARTMENT OPERATOR): Hmg 6.9. Transfusion ordered but patient refused today. Recheck labs Wednesday. Could be r/t diluation with IVF also. Heparin on hold. Assessment & Plan (09/08/2022 1:27 PM WHEY DEPARTMENT OPERATOR): H&H has been stable, continue supplemental iron. Monitor Assessment & Plan (09/04/2022 1:58 PM WHEY DEPARTMENT OPERATOR): H&H with continued to decline. Continue to hold heparin, add iron although patient may not tolerate due to ongoing GI complaints. Will follow-up H&H 09/07/2022. Patient may need EPO Assessment & Plan (08/26/2022 4:26 PM WHEY DEPARTMENT OPERATOR): Heparin remain on hold, follow-up labs ordered but not done, will follow-up when labs available. Assessment & Plan (08/25/2022 11:55 AM WHEY DEPARTMENT OPERATOR): H/H slowly trending down, will hold heparin. Recheck in am. Hyperphosphatemia 08/17/2022 Assessment & Plan (08/17/2022 12:34 PM WHEY DEPARTMENT OPERATOR): Started on Sevelamer. Check level with next set of labs. Asymptomatic microscopic hematuria 08/17/2022 Assessment & Plan (08/17/2022 12:38 PM WHEY DEPARTMENT OPERATOR): Will need urology f/u outpt. Former smoker. Nausea & vomiting 08/14/2022 Assessment & Plan (09/22/2022 12:00 PM WHEY DEPARTMENT OPERATOR): This has been an ongoing issue since admission to [facility] [place]. Patient does better with Pepcid, reduce Pepcid to 20 mg daily due to renal function. Continue p.r.n. Zofran Assessment & Plan (09/18/2022 1:23 PM WHEY DEPARTMENT OPERATOR): Intermittent. Large emesis today & yesterday. Schedule Zofran q8h & Pepcid PO. Poor PO intake per patient & staff. Meds reviewed. Believe large part psychlogical. Assessment & Plan (09/15/2022 12:09 PM WHEY DEPARTMENT OPERATOR): Resolved, give 2 more doses of pepcid then DC. Assessment & Plan (09/13/2022 3:50 PM WHEY DEPARTMENT OPERATOR): Improved. Did not receive IV Pepcid or IV Compazine d/t pharmacy not having. Will monitor for now. Believe may be s/t CDiff. Assessment & Plan (09/11/2022 2:25 PM WHEY DEPARTMENT OPERATOR): Comes and goes - no pattern. Is able to hold pills down. Normally dry heaving but at times large volumes of emesis. Tx unable to work with today d/t. Would like to start Reglan but concerns for increased diarrhea with CDiff. Compazine started instead. Zofran IV d/c as ineffective. PO Pepcid stopped & IV started. Monitor. LANNY (acute kidney injury) 08/04/2022 Assessment & Plan (09/13/2022 3:51 PM WHEY DEPARTMENT OPERATOR): Completed IVF. Repeat labs pending for am. Assessment & Plan (09/04/2022 1:57 PM WHEY DEPARTMENT OPERATOR): Creatinine increased to 3.2, patient had some nausea, limiting her p.o. intake in the past 24 hours. Will give IV fluids, 2 L, recheck labs on 09/07/2022. Encouraged p.o. fluid intake if able. Continue Zofran for symptomatic management. Assessment & Plan (08/28/2022 6:22 PM WHEY DEPARTMENT OPERATOR): Renal function without improvement, sodium has improved from 129-132. Patient's p.o. intake remains suboptimal, agrees to 1 L normal saline, follow-up labs 08/31/2022 Assessment & Plan (08/27/2022 11:49 AM WHEY DEPARTMENT OPERATOR): Labs not drawn as ordered 08/26. Have emailed lab and asked for labs to be done STAT. Monitor. Assessment & Plan (08/26/2022 4:25 PM WHEY DEPARTMENT OPERATOR): Patient appears to be better, blood pressure controlled, repeat labs are still pending. Tolerated 1 L of normal saline well. Assessment & Plan (08/25/2022 11:52 AM WHEY DEPARTMENT OPERATOR): Cr worsened, now 2.8, new hyponatremia. Will give 1L NS, recheck labs in am Assessment & Plan (08/17/2022 12:34 PM WHEY DEPARTMENT OPERATOR): Continues to improve. Cr 1.6. Assessment & Plan (08/13/2022 6:33 AM WHEY DEPARTMENT OPERATOR): Follow-up BMP 08/13 Assessment & Plan (08/11/2022 9:11 AM WHEY DEPARTMENT OPERATOR): Cr 2.5. Slowly trending down. Continue renally dose abx. Continue to hold gabapentin & Cymbalta. No complaints of increased pain. Lovenox changed to Heparin. Assessment & Plan (08/07/2022 11:05 AM WHEY DEPARTMENT OPERATOR): Cr 2.6 - improved. On , will d/c after compeltion. Recheck labs Wednesday. Continue to hold nephrotoxins. Assessment & Plan (08/06/2022 12:31 PM WHEY DEPARTMENT OPERATOR): Cr 3 today. Hold lovenox, Lasix, Gabapentin. Start IVF - recheck labs in am. Have notifed ID about abx adjustment. Labs ordered for am. May need to consult Nephrology. Assessment & Plan (08/04/2022 3:28 PM WHEY DEPARTMENT OPERATOR): Cr continues to climb. CK stable at 38. Liver enzymes stable. Have discussed labs with pharmacy. Will decrease Cipro to 200mg BID, Dapto q48h, continue Lasix d/t anasarca. Repeat labs . Monitor closely, hold fluids d/t edema at this time. Hyponatremia 07/21/2022 Assessment & Plan (09/22/2022 12:01 PM WHEY DEPARTMENT OPERATOR): Resolved Assessment & Plan (08/26/2022 4:25 PM WHEY DEPARTMENT OPERATOR): Patient had worsening hyponatremia, fluid resuscitated yesterday, repeat labs are still pending despite multiple orders written. Assessment & Plan (08/11/2022 9:10 AM WHEY DEPARTMENT OPERATOR): Na 132. NaCl d/c d/t edema. Assessment & Plan (08/07/2022 11:05 AM WHEY DEPARTMENT OPERATOR): Improved with IVF Assessment & Plan (08/04/2022 3:30 PM WHEY DEPARTMENT OPERATOR): Holding NaCl tab & Cymbalta with edema Assessment & Plan (08/03/2022 12:31 PM WHEY DEPARTMENT OPERATOR): Na remains low, is on NaCl TID (likely attributing to edema to surgical foot) will decrease fluid restricition to 1500ml & recheck labs later this week. Assessment & Plan (07/27/2022 1:16 PM CDT): Low but improved, continue supplement. Assessment & Plan (07/21/2022 5:31 AM CDT): Sodium 126, denies any complaints. Will start on sodium chloride tab 1 g t.i.d.. Recheck sodium level 07/22 Rash 07/21/2022 Assessment & Plan (02/21/2023 12:02 PM CDT): No known history of psoriasis. Rash consistent with psoriasis. Will treat with triamcinolone 0.1% cream b.i.d. for 14 days. She will follow-up with primary care provider to further investigate the rash. Assessment & Plan (09/22/2022 12:06 PM WHEY DEPARTMENT OPERATOR): Patient with multiple pull and varied skin rashes throughout her stay. Will start triamcinolone for scaly annular left lower extremity rash. Follow-up with PCP Assessment & Plan (08/13/2022 6:31 AM WHEY DEPARTMENT OPERATOR): Now patient complaining to RN of itchiness to legs. Continue Benadryl 25 mg q.8 p.r.n., will start prednisone 20 mg x 5 days, Assessment & Plan (08/11/2022 1:04 PM WHEY DEPARTMENT OPERATOR): Reoccurred today, appears like petechiae on leg - could be r/t dressing used at wound clinic Unsure cause. Will monitor. Assessment & Plan (08/03/2022 12:33 PM WHEY DEPARTMENT OPERATOR): Continues to resolve Assessment & Plan (07/31/2022 12:11 PM CDT): Greatly improved but continues to have mild itching. PRN benadryl in place. Assessment & Plan (07/27/2022 1:13 PM CDT): Continues to improve. Assessment & Plan (07/23/2022 11:18 AM CDT): No change to rash. Has not received Dapto yet from pharmacy. Continue monitor closely. Appreciate ID following. Assessment & Plan (07/22/2022 12:58 PM CDT): Rash still same level to legs and arm. Will start Benadryl 25 mg b.i.d., continue Zyrtec, Pepcid b.i.d.. Labs WNL. Id consulted, per recommendation vancomycin IV discontinued and switched to daptomycin daily dosing. Ordered labs for vasculitis. Continue to monitor Assessment & Plan (07/21/2022 11:24 AM CDT): Rash erupted to b/l legs and r arm. Denies itching. Vanc held last night, started on Benadryl & Zyrtec. Reports achy. Have reached out ID. STAT labs ordered - stop Ceftriaxone, switch to Cipro IV 400mg q12, continue PO Vanc & IV Vanc. No recent Vanc trough, stat random Vanc ordered. Pharmacy consult is ordered for vanc to dose. Continue Zyrtec, start Pecpd BID x7d for rash. Assessment & Plan (07/21/2022 5:44 AM CDT): Patient some petechial rash in lower legs, feet bilateral. Denies any pain or itchiness. Will continue to monitor. On Benadryl and Zyrtec. Polyneuropathy associated with underlying diseas e 07/21/2022 Assessment & Plan (09/22/2022 12:05 PM WHEY DEPARTMENT OPERATOR): Stable/improved with gabapentin Assessment & Plan (08/17/2022 12:35 PM WHEY DEPARTMENT OPERATOR): Cr improved. Will restart gabapentin. Monitor. Assessment & Plan (08/11/2022 9:15 AM WHEY DEPARTMENT OPERATOR): Gabapentin & Cymalta held with Cr. Montior for ability to resume. Assessment & Plan (07/21/2022 5:45 AM CDT): Symptoms controlled with gabapentin 300 mg t.i.d.. Anxiety and depression 07/21/2022 Assessment & Plan (09/22/2022 12:05 PM WHEY DEPARTMENT OPERATOR): Patient remains withdrawn although has improved with increasing Wellbutrin dose. Cymbalta discontinued due to increasing renal function. Continue trazodone nightly for sleep Assessment & Plan (09/16/2022 1:28 PM WHEY DEPARTMENT OPERATOR): Continue supportive care, continue increased Wellbutrin Assessment & Plan (08/27/2022 11:47 AM WHEY DEPARTMENT OPERATOR): Increased depression with change in abx. Very flat/withdrawn. Will increase Wellbutrin. Have notified SS for counseling. Assessment & Plan (08/25/2022 11:43 AM WHEY DEPARTMENT OPERATOR): Pt withdrawn, needs encouragement. Continue wellbutrin 150mg daily, duloxetine. Assessment & Plan (08/17/2022 12:37 PM WHEY DEPARTMENT OPERATOR): Increased depression. Previously on Wellbutrin 300mg at home. Will resume at 150mg. Monitor. SS to discuss DCP. Currently on Daptomycin which is expensive for HH. Uncertain of support system for home also. Assessment & Plan (08/11/2022 12:57 PM WHEY DEPARTMENT OPERATOR): Cymbalta had been on hold for cr, improving and patient asking to restart. Will restart. Monitor. Assessment & Plan (07/21/2022 5:46 AM CDT): Continue home med trazodone 150 mg nightly, amitriptyline 50 mg nightly, duloxetine 30 mg Hypokalemia 07/21/2022 Assessment & Plan (09/22/2022 12:01 PM WHEY DEPARTMENT OPERATOR): Now with hyperkalemia since GI loss has improved. We will hold supplemental potassium, give lokelma x 1. Repeat BMP in a, rec f/u 09/25 Assessment & Plan (09/16/2022 1:28 PM WHEY DEPARTMENT OPERATOR): Likely secondary to GI loss, increase p.o. supplement Assessment & Plan (09/14/2022 9:48 AM WHEY DEPARTMENT OPERATOR): Increased PO supplement, also give some in IVF Assessment & Plan (09/11/2022 2:22 PM WHEY DEPARTMENT OPERATOR): Improved restarted on PO potassium per MD. Assessment & Plan (09/11/2022 10:02 AM WHEY DEPARTMENT OPERATOR): Potassium improved to 3. Will receive IV fluid with potassium chloride 1 L today again. Repeat labs a.m. Assessment & Plan (09/08/2022 1:31 PM WHEY DEPARTMENT OPERATOR): Attempt oral repleation - may need to add to IV if not able to take po Assessment & Plan (08/11/2022 9:10 AM WHEY DEPARTMENT OPERATOR): Level stable. Supplement d/c. Monitor. Assessment & Plan (08/03/2022 12:31 PM WHEY DEPARTMENT OPERATOR): Stable on supplement. Assessment & Plan (07/27/2022 1:16 PM CDT): Level low again. Will restart K 10meq daily. Assessment & Plan (07/21/2022 5:47 AM CDT): Patient had hypokalemia while inpatient, transferred on potassium chloride 10 mg b.i.d.. Today potassium level 4.5. Will DC supplement. Monitor BMP Primary hypertension 07/17/2022 Assessment & Plan (02/23/2023 7:16 PM CDT): On hydralazine 25mg tid and amlodipine 10mg od prior to admission. BP reviewed on 02/23: 133/65 - continue same Assessment & Plan (09/22/2022 11:59 AM WHEY DEPARTMENT OPERATOR): Blood pressures been lower throughout her stay, metoprolol has been discontinued, monitor as an outpatient, consider restarting if needed Assessment & Plan (09/11/2022 2:15 PM WHEY DEPARTMENT OPERATOR): BP stable. BB remains on hold. Assessment & Plan (09/08/2022 1:32 PM WHEY DEPARTMENT OPERATOR): BP lower, will place metoprolol on hold Assessment & Plan (09/04/2022 1:59 PM WHEY DEPARTMENT OPERATOR): Blood pressure stable, continue metoprolol 25 mg b.i.d. Assessment & Plan (08/28/2022 6:26 PM WHEY DEPARTMENT OPERATOR): Blood pressure variable but generally controlled, continue Lopressor Assessment & Plan (08/17/2022 12:31 PM WHEY DEPARTMENT OPERATOR): BP elevated. Currently on no meds. Will add Lopressor 25mg BID & monitor. Assessment & Plan (08/14/2022 10:59 AM WHEY DEPARTMENT OPERATOR): BP fluctuating. Monitor, may need adjustment. Assessment & Plan (07/31/2022 12:06 PM CDT): BP stable. Assessment & Plan (07/21/2022 5:32 AM CDT): Blood pressure mostly soft. Currently not on any meds. Continue to monitor. Assessment & Plan (07/17/2022 1:57 PM CDT): BP fluctuating. Currently not on meds. Will monitor for now, may need to initiate meds if continues to be elevated. Type 2 diabetes mellitus wit h hypoglycemia, without long-term current use of insulin 07/03/2022 Assessment & Plan (10/30/2022 1:46 PM WHEY DEPARTMENT OPERATOR): Replace home linagliptin with SSI for now, can start basal/bolus regimen if glucose is persistently elevated. Assessment & Plan (09/22/2022 12:00 PM WHEY DEPARTMENT OPERATOR): Blood sugars have been labile during her stay, Tresiba have been restarted however then had hypoglycemic episodes. Patient will be discharging home on Tradjenta 5 mg daily. Recommend monitoring blood sugars at least b.i.d., follow-up with PCP for further medication management Assessment & Plan (09/11/2022 2:17 PM WHEY DEPARTMENT OPERATOR): BS 80-124. No requiring insulin & Tresiba remains on hold. Assessment & Plan (09/08/2022 1:33 PM WHEY DEPARTMENT OPERATOR): Morning BS lower - will place tresiba on hold. Continue SSI with meals Assessment & Plan (09/04/2022 2:00 PM WHEY DEPARTMENT OPERATOR): No hypoglycemic episodes, blood sugars ranging from 135-168, continue Tresiba 5 units q.h.s., sliding scale insulin with meals Assessment & Plan (09/01/2022 8:53 PM WHEY DEPARTMENT OPERATOR): BS remains controlled, continue tight glycemic control to improve wound healing. Continue tresiba 5 units qhs, SSI. Assessment & Plan (08/25/2022 11:45 AM WHEY DEPARTMENT OPERATOR): BS generally controlled with tresiba 5 units qhs, tradjenta, SSI. No documented hypoglycemic episodes. Assessment & Plan (08/17/2022 12:32 PM WHEY DEPARTMENT OPERATOR): BS 101-250. Continue Tradjenta, SSI, Will restart Tresiba at 5u nightly. Monitor. Assessment & Plan (08/13/2022 6:33 AM WHEY DEPARTMENT OPERATOR): BG 115-177. Continue SSI, may expect elevated BG secondary to prednisone starting today Assessment & Plan (08/11/2022 1:00 PM WHEY DEPARTMENT OPERATOR): BS 147-223. Currently on SSI but not requiring often. Assessment & Plan (08/07/2022 11:02 AM WHEY DEPARTMENT OPERATOR): BS stable with some elevation - will resume SSI for wound health. Monitor. Assessment & Plan (08/03/2022 12:31 PM WHEY DEPARTMENT OPERATOR): BS running 74-156 on only Tradjenta, continue to hold insulin. Assessment & Plan (07/31/2022 12:06 PM CDT): Now with hypoglycemia. SSI & Tresiba placed on hold. Patient reports good appetite. Continue to monitor BS. Assessment & Plan (07/27/2022 1:18 PM CDT): A1c 8.8. BS 63-195 over weekend. Patient reports eating well. Continues on Tradjenta. WIll cut Tresiba in half to 25u & monitor bS closely. Assessment & Plan (07/21/2022 5:31 AM CDT): A1c 9.3. BG 176-278. On Tresiba 50 units., SSI with meals, Tradjenta. Continue Accu-Cheks Assessment & Plan (07/17/2022 1:59 PM CDT): a1c 9.3%. Was using Tresiba 50u at home in am & SSI with meals, + Tradjenta. Continue current regimen. Monitor BS. History of COVID-19 07/03/2022 Overview (07/05/2022): Added automatically from request for surgery [id number] Assessment & Plan (07/21/2022 5:33 AM CDT): Pulmonary status currently stable. Patient denies any complaints. Assessment & Plan (07/17/2022 2:04 PM CDT): Resp status stable. 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 Follows up with Cardiology, Dr. Evans outpatient De Quervain's disease (tenosynovitis) 06/30/2016 Diabetic neuropathy 06/30/2016 Arthritis 10/25/2015 Hyperlipidemia 10/25/2015 C. difficile colitis Assessment & Plan (10/30/2022 1:38 PM WHEY DEPARTMENT OPERATOR): Continues to have diarrhea after 10 day course of fidoxamicin, will start long vancomycin taper. ID consulted. Assessment & Plan (09/22/2022 12:03 PM WHEY DEPARTMENT OPERATOR): Patient has had recurrent C diff, completed Dificid - symptoms have now improved, leukocytosis resolved Assessment & Plan (09/15/2022 12:09 PM WHEY DEPARTMENT OPERATOR): Looser stool improving, completes difacid today. Assessment & Plan (09/14/2022 9:49 AM WHEY DEPARTMENT OPERATOR): Pt still with loose stool - c diff results pending. Rn sent order for stool culture incorrectly - although results are negative. Assessment & Plan (09/11/2022 9:59 AM WHEY DEPARTMENT OPERATOR): Stool tested positive for C diff. for recurrent infection will start on fidaxomicin 200 mg x 10 days, id team has been informed. Continue IV fluid Assessment & Plan (09/08/2022 9:17 PM WHEY DEPARTMENT OPERATOR): Diarrhea has returned, will check for C diff, continue replacement fluids Assessment & Plan (08/26/2022 4:22 PM WHEY DEPARTMENT OPERATOR): Patient is not having frequent loose stools, she is completed vancomycin. Patient likely can come off isolation for C diff Assessment & Plan (08/25/2022 11:18 AM WHEY DEPARTMENT OPERATOR): Pt completed vancomycin. Continue to monitor for loose stool as pt remains on antibiotics. Assessment & Plan (08/03/2022 12:32 PM WHEY DEPARTMENT OPERATOR): Diarrhea stable. Continue PO vanc taper. Assessment & Plan (07/31/2022 12:08 PM CDT): Stools continue to fluctuate. Continues on vanc taper. Assessment & Plan (07/22/2022 12:57 PM CDT): Per ID and continue oral vancomycin for C diff Assessment & Plan (07/21/2022 11:25 AM CDT): Denies diarrhea Assessment & Plan (07/21/2022 5:30 AM CDT): Currently on extended vancomycin tapering dose till 08/21/2022. Confirms improvement in diarrhea. Continue isolation. Assessment & Plan (07/17/2022 2:00 PM CDT): Is on extended vanc taper - orders not entered correctly on admission, admin to fix admission orders to correct taper order. Patient reports diarrhea improving. Continue to monitor. Continue isolation. Peripheral arterial disease Resolved Problems Problem Noted Date Diagnosed Date Resolved Date Cellulitis of right lower extremity 10/29/2022 12/17/2022 Overview (10/30/2022): Added automatically from request for surgery [id number] Lower abdominal pain 08/14/2022 022 Assessment & Plan (08/17/2022 12:33 PM WHEY DEPARTMENT OPERATOR): Resolved. CT negative. Assessment & Plan (08/14/2022 10:55 AM WHEY DEPARTMENT OPERATOR): Patient having lower abd pain with n/v for >72d. She is afebrile, labs stable, LFTs normalized, no diarrhea, BS well controlled. Tenderness to abd on palpation. Will obtain CT of abd pelvis, will be unable to use contrast with kidneys currently. Continue PRN zofran PO & IV. Will obtain stat labs today + UA. Anasarca 08/04/2022 08/11/2022 Assessment & Plan (08/07/2022 11:06 AM WHEY DEPARTMENT OPERATOR): Resolving despite fluids. Assessment & Plan (08/06/2022 12:20 PM WHEY DEPARTMENT OPERATOR): Remains puffy in arms but d/t Cr unable to give Lasix currently. NaCl tabs held to help with retention but currently receiving IVF. Monitor. Elevated alkaline phosphatase level 07/21/2022 07/27/2022 Assessment & Plan (07/23/2022 11:22 AM CDT): Continues to trend down. Assessment & Plan (07/21/2022 5:38 AM CDT): Alk-phos was elevated, improving. Continue to monitor MRSA bacteremia 07/06/2022 12/17/2022 Assessment & Plan (09/13/2022 3:51 PM WHEY DEPARTMENT OPERATOR): Cx remains positive for MRSA. Final cx pending. Abx on hold d/t LANNY will need to discuss with ID next week on stop for abx d/t missing doses. Assessment & Plan (08/07/2022 11:06 AM WHEY DEPARTMENT OPERATOR): Saw ID yesterday, wants abx to continue until 09/08 with weekly labs. Assessment & Plan (08/06/2022 12:18 PM WHEY DEPARTMENT OPERATOR): Patient has f/u with ID today. Will confirm abx stop date after appt. Assessment & Plan (08/03/2022 12:34 PM WHEY DEPARTMENT OPERATOR): Continue abx, labs & ID f/u as scheduled. Appreciate their recommendations & consults. Assessment & Plan (07/21/2022 5:27 AM CDT): As in # OM R toe Assessment & Plan (07/17/2022 2:04 PM CDT): SEE above Osteomyelitis of great toe of right foot 07/03/2022 12/17/2022 Overview (07/05/2022): Added automatically from request for surgery [id number] Assessment & Plan (09/22/2022 12:03 PM WHEY DEPARTMENT OPERATOR): Wound continues to slowly improve with wound VAC in place. Completed IV antibiotics, to complete an additional 2 weeks of doxycycline per Infectious Disease. Has follow-up with Podiatry/wound care clinic in [place] Assessment & Plan (09/16/2022 1:28 PM WHEY DEPARTMENT OPERATOR): Foot/wound remained stable. Per daughter wound care clinic considering doing hyperbaric treatment once discharged from nursing home facility. Tolerating doxycycline without adverse reactions. Patient remains afebrile, without leukocytosis. Wound care nurse will start dressing change training/wound VAC training. We will work on starting wound VAC orders in anticipation for discharge early next week likely not before Wednesday09/22/2022. This was discussed with patient and daughter Assessment & Plan (09/15/2022 12:10 PM WHEY DEPARTMENT OPERATOR): Wound continues to slowly improve. Wound cx still with MRSA, sens to doxycycline. Will transition to doxycycline today, IV antibiotics stopped 2/2 renal dysfunction. Continue po x 3 weeks. F/U with podiatry 09/30 -requested a call back from wound care clinic to confirm orders. Per pt should be NWB to RLE. Updated care team - will start discussing DC planning Assessment & Plan (09/11/2022 10:02 AM WHEY DEPARTMENT OPERATOR): WBC normal. Blood culture negative. Telavancin currently on hold. Patient to start doxycycline from 09/23/2022. Continue wound care Assessment & Plan (09/08/2022 1:32 PM WHEY DEPARTMENT OPERATOR): Wound overall is stable, has new leukocytosis. Will check blood cultures, review wound in a.m. with wound care nurse when wound VAC is removed. Repeat cultures ordered We will hold Cipro due to worsening renal function, call out to pharmacist regarding Telavancin dosing - may need adjustment with worsening renal failure Notified ID INTERNAL MEDICINE NURSE via secure chat Assessment & Plan (09/01/2022 8:45 PM WHEY DEPARTMENT OPERATOR): Pain controlled, wound stable. Encouraged pt dtr to discuss wound healing possibilities with podiatry and consider repeat tissue sampling after the current coarse of antibiotics. Continue wound vac, patient doing well with therapy. Assessment & Plan (08/28/2022 6:25 PM WHEY DEPARTMENT OPERATOR): Patient tolerating antibiotic change well. Reinforced need for improvement in documentation of meds given by nursing staff, 2nd dose due today of telavancin through 09/22/2022, Cipro and fluconazole continue. Patient has follow-up wound clinic appointment 08/31/2022, to take Assessment & Plan (08/26/2022 4:21 PM WHEY DEPARTMENT OPERATOR): Received call from Infectious Disease that they had received follow-up/new wound culture obtained on 08/10/22 is positive for VISA- resistant to daptomycin. Will need to change antibiotics from daptomycin to telavancin 10 mg/kg every 24 hours x 4 weeks- stop date 09/22/22, followed by 2 weeks po doxycycline. Also we will be adding fluconazole to cover Tiana also seen in wound culture. Patient did develop significant rash with vancomycin/ceftriaxone, will monitor with new antibiotic. Patient has a follow-up visit with Podiatry 08/31/2022, reports her will be taking her. Assessment & Plan (08/25/2022 11:26 AM WHEY DEPARTMENT OPERATOR): Pt missed podiatry follow up due to new covid diagnosis. Continue aggressive wound care with wound vac - changing MWF. Pt denies pain. Will remain heel-touch WB with post-op shoe. Now with f/u 08/[address] Leon/wound care clinic. Pt needs to continue IV cipro and Dapto through 09/08/22, then will transition to po doxycyline 100mg PO BID x 14days per ID. Does not need an ID follow up. Assessment & Plan (08/11/2022 9:14 AM WHEY DEPARTMENT OPERATOR): Outpt wound clinic f/u with Dr. Leon today. Continue wound vac MWF. Wear post-op shoe with WB, can heel-touch WB with transfers. F/u 08/24. Assessment & Plan (08/06/2022 12:19 PM WHEY DEPARTMENT OPERATOR): Wound clinic appt with Dr. Leon 08/10. Assessment & Plan (08/04/2022 3:28 PM WHEY DEPARTMENT OPERATOR): Was able to reach Dr. Leon. Wants to see in Wound Clinic. Admin working on arranging appt. Assessment & Plan (08/03/2022 12:40 PM WHEY DEPARTMENT OPERATOR): Have attempted to call Dr. Fuller office again today. No answer, message left. Photos loaded to FRAMED. Concerns with foot. Will add on Lasix for increased edema although will likely not help sodium so will have to monitor closely. Continue to attempt to reach Dr. Leon. Assessment & Plan (07/31/2022 12:10 PM CDT): Unable to reach Dr. Leon office for f/u Will continue to try. Assessment & Plan (07/27/2022 1:15 PM CDT): Continue abx. Have reached out to podiatry as she has not follow-up currently, unclear how long patient is to remain NWB. She is anxious to discharge home but would like to be able to be walking. . Assessment & Plan (07/23/2022 11:20 AM CDT): Have placed consult for Pharmacy to dose Dapto. CK ordered with next labs. Continue to monitor closely. Assessment & Plan (07/22/2022 12:57 PM CDT): Continue ciprofloxacin, daptomycin. Monitor labs, skin rash. Assessment & Plan (07/21/2022 5:27 AM CDT): s/p right hallux amputation on 07/06/22, bone culture + MRSA, Klebsiella, and mixed organisms. Continue wound VAC, on IV antibiotic x6 weeks via PICC line. Need weekly labs to ID. Continue hydrocodone/acetaminophen Q 4 p.r.n. for pain. Patient expressed earlier that wants to get discharge home soon, SW trying to get home IV set up. Assessment & Plan (07/17/2022 2:04 PM CDT): Continue wound vac, IV abx x 6 weeks via PICC, weekly labs to ID. ID f/u. Patient would like to go home. Feels will be willing to learn IV abx & she can learn wound care. Will send email to have team to discuss Wednesday. Continue pain regimen. Acute osteomyelitis of right ankle or foot 06/30/2022 12/17/2022 Overview (06/30/2022): Added automatically from request for surgery [id number] Assessment & Plan (09/18/2022 1:25 PM WHEY DEPARTMENT OPERATOR): Will be unable to skill patient next week. SS/Wound RN working on d/c changing wound vac and changing to BID dressing changes instead to help with skilling patient. Educated orders must come from Dr. Leon. Assessment & Plan (09/13/2022 3:51 PM WHEY DEPARTMENT OPERATOR): Patient has f/u podiatry in am. VPC (ventricular premature complex) 06/24/2022 08/17/2022 Elevated lactic acid level 1 Acute respiratory failure with hypoxia 07/17/2022 Abscess of right lower leg 0 12/17/2022 Assessment & Plan (12/03/2022 11:01 AM WHEY DEPARTMENT OPERATOR): Leg with minimal edema. [place] have been removed. Okay to begin using the stump corporate quality assurance manager. Continue with the ampu shield to prevent trauma to the stump. Patient will call us back with any further questions or concerns. Assessment & Plan (10/30/2022 1:40 PM WHEY DEPARTMENT OPERATOR): Likely associated with known osteomyelitis with complicated treatment history. Podiatry consulted, debridement planned in OR on Wednesday. ID consulted because of quick recurrence of infection. Will replace IV vancomycin with IV doxycycline because of recent wound culture growing VISA. Encounters Date Type Department Care Team Description 03/13/2025 10:11 AM CDT Anesthesia Event [facility] Operating Room [id number] [place] [id number] Cindy Escobar DO Hall, Jill Marie, NP 03/13/2025 9:40 AM CDT - 03/13/2025 11:40 AM CDT Surgery [facility] Operating Room [address] [address] [id number] Gary Snyder MD CREATION ARTERIOVENOUS FISTULA - ARM 03/13/2025 7:08 AM CDT - 03/13/2025 12:40 PM CDT Hospital Encounter [facility] Operating Room [address] [address] [phone] Gary Snyder MD Chronic kidney disease (CKD), stage V (HCC) (Primary Dx) Discharge Disposition: Discharge to home or self care 03/12/2025 Telephone [facility] Vascular Surgery [address] [place] [address] Medical Office Building [address] [place] [phone] Gary Snyder MD 03/06/2025 11:59 PM CDT Anesthesia Event [facility] Operating Room [address] [place] [address] Dania Cyr NP 02/07/2025 10:15 AM CDT Ancillary Procedure [facility] V[facility] Lab at [facility] [place] [facility] [address] [place] [address] Advanced Medicine 8th [place] [address] [place] [address] Chronic kidney disease (CKD) stage G5/A1, glomerular filtration rate (GFR) less than or equal to 15 mL/min/1.73 square meter and albuminuria creatinine ratio less than 30 mg/g (HCC) 02/07/2025 9:45 AM CDT Office Visit [facility] Surgery [address] [place] [address] Medicine 8th [place] [address] [place] [id number] Gary Snyder MD Chronic kidney disease (CKD) stage G5/A1, glomerular filtration rate (GFR) less than or equal to 15 mL/min/1.73 square meter and albuminuria creatinine ratio less than 30 mg/g ([facility]) (Primary Dx); Chronic kidney disease, stage V ([facility]) 02/07/2025 Telephone [facility] Vascular Surgery [address] [facility] Medical Office Building [address] [place] [phone] Gary Snyder MD from Last 3 Months Immunizations Immunization Administration Dates Next Due Td, adsorbed 09/27/2007 Tdap 10/19/2018 Surgical History Surgery Date Site/Laterality Comments BREAST BIOPSY Left unknown date, early CARDIAC CATHETERIZATION unknown date CHOLECYSTECTOMY 09/27/1992 - 09/26/1993 HYSTERECTOMY 09/27/1996 - 09/26/1997 partial DILATION AND CURETTAGE OF UTERUS unknown date BELOW KNEE LEG AMPUTATION 10/28/2022 Right CARPAL TUNNEL RELEASE 09/27/2023 - 09/26/2024 Right ECTOPIC SURGERY 09/27/1992 - 09/26/1993 COLONOSCOPY 09/27/2018 - 09/26/2019 HERNIA REPAIR unknown date ESOPHAGOGASTRODUODENOSCOPY 09/27/2018 - 09/26/20192022 TOE SURGERY 09/27/2021 - 09/26/2022 INCISION AND DRAINAGE 09/27/2021 - 09/26/20222022, foot/toe INCISION AND DRAINAGE 09/27/2022 - 09/26/2023 right BKA revision Medical History Medical History Date Comments Bipolar disorder, unspecified ([facility]) Abdominal distention Chronic back pain Depression DEJESUS (dyspnea on exertion) COPD (chronic obstructive pu lmonary disease) ([facility]) H/O diabetic neuropathy Hypertension Hyperlipidemia Diabetes mellitus ([facility]) IBS (irritable bowel syndrome) Sleep apnea PTSD (post-traumatic stress disorder) Tubal Arrhythmia Foot fracture Hx of right BKA ([facility]) Abscess of right lower leg Cellulitis of right lower extremity 10/29/2022 Added automatically from request for surgery [id number] Osteomyelitis of great toe o f right foot ([facility]) 07/03/2022 Added automatically from req uest for surgery [id number] Acute osteomyelitis of right ankle or foot ([facility]) 06/30/2022 Added automatically from req uest for surgery [id number] MRSA bacteremia 07/06/2022 PONV (postoperative nausea a nd vomiting) Chronic kidney disease H/O Clostridium difficile infection Type 2 diabetes mellitus (HCC) Family History Medical History Relation Name Comments Heart attack Cousin Car Accident Father Car Accident Mother Hypertension Mother Anesthesia problems Neg Hx Relation Name Status Comments Cousin Daughter Alive Father Mother Social History Tobacco Use Types Packs/Day Years Used Date Smoking Tobacco: Every Day Cigarettes 1 40 Smokeless Tobacco: Never Tobacco Cessation:Ready to Q uit: Not Asked; Counseling Given: Not Answered OASIS D0700: Social Isolation Answer Da te Recorded Frequency of experiencing loneliness or isolatio n Never 03/08/2024 [facility] Utilities Answer Date Recorded In the past 12 months has e electric, gas, oil, or water company threatened to shut off services in your home? No 03/27/2024 Social Connection and Isolat ion Panel [NHANES] Answer Date Recorded In a typical week, how many times do you talk on the phone with family, friends, or neighbors? More than three times a week 03/27/2024 How often do you get togethe r with friends or relatives? Twice a week 03/27/2024 How often do you attend chur ch or adventism services? Never 03/27/2024 Do you belong to any clubs o r organizations such as yarsani groups, unions, fraternal or athletic groups, or school groups? Yes 03/27/2024 How often do you attend meet ings of the clubs or organizations you belong to? Never 03/27/2024 Are you , , di vorced, , never , or living with a partner? 03/27/2024 AUDIT-C Answer Date Recorded Q1: How often do you have a drink containing alcohol? Never 03/13/2025 Q2: How many drinks containi ng alcohol do you have on a typical day when you are drinking? Patient does not drink Q3: How often do you have si x or more drinks on one occasion? Never 03/13/2025 Overall Financial Resource Strain (CARDIA) Answe r Date Recorded How hard is it for you to pa y for the very basics like food, housing, medical care, and heating? Not hard at all 03/27/2024 PHQ-2 Answer Date Recorded Patient Health Questionnaire-2 Score 0 11/26/2022 [facility] [place] [facility] - Occupational Stress [...] you got the money to buy more. Never true 03/27/20 24 Within the past 12 months, t he food you bought just didn't last and you didn't have money to get more. Never true 03/27/2024 PRAPARE - Transportation Answer Date Re corded In the past 12 months, has l ack of transportation kept you from medical appointments or from getting medications? No 09/2023 In the past 12 months, has l ack of transportation kept you from meetings, work, or from getting things needed for daily living? No 03/27/2024 Housing Stability Vital Sign Answer Christiano e Recorded In the last 12 months, was t here a time when you were not able to pay the mortgage or rent on time? No 02/19/2023 In the last 12 months, how many places have you lived? 1 02/19/2023 In the last 12 months, was t here a time when you did not have a steady place to sleep or slept in a senior living (including now)? No 02/19/2023 Housing Stability Vital Sign Answer Christiano e Recorded In the last 12 months, was t here a time when you were not able to pay the mortgage or rent on time? No 03/27/2024 In the past 12 months, how m any times have you moved where you were living? 0 03/27/2024 At any time in the past 12 m onths, were you homeless or living in a senior living (including now)? No 03/27/2024 Personal Safety Answer Date Recorded Have you ever been in or are you currently in a harmful physical or emotional relationship or is someone making you feel afraid or unsafe? Denies 03/13/2025 Education Answer Date Recorded What is the highest level of school you have completed or the highest degree you have received? 11th grade 11/03/2022 Comments No Sex and Gender Information Value Date Recorded Sex Assigned at Not on file Legal Sex Female 12:23 PM WHEY DEPARTMENT OPERATOR Gender Identity Not on file Sexual Orientation Not on file Obstetrics History Last Filed Vital Signs Vital Sign Reading Time Taken Comments Blood Pressure 152/71 03/13/2025 12:10 PM CDT Pulse 78 03/13/2025 12:10 PM CDT Temperature 36.3 C (97.3 F) 03/13/2025 12:10 PM CDT Respiratory Rate 18 03/13/2025 12:10 PM CDT Oxygen Saturation 95% 03/13/2025 12:10 PM CDT Inhaled Oxygen Concentration - - Weight 85.3 kg (188 lb) 03/13/2025 8:09 AM CDT Height 172.7 cm (5' 8) 03/13/2025 8:09 AM CDT Body Mass Index 28.59 03/13/2025 8:09 AM CDT Plan of Treatment Health Maintenance Due Date Last Done Comments Albumin Creatinine Ratio, Urine 1967 Breast Cancer Screening-Mammogram 1967 Colon Cancer Screening-Colonoscopy 1967 Hepatitis C Screening 1967 Dilated Eye Exam 1967 Foot Exam 1967 Hepatitis B Screening 1985 Regular Well Visit/Exam 18-64 1985 Pneumococcal vaccine <65 (1 of 2 - PCV) 1986 Lung Cancer Screening 2017 Zoster Vaccine (1 of 2) 2017 Lipid Panel 04/29/2023 04/29/2022, 10/28/2015 Hemoglobin A1C 08/21/2023 02/18/2023, 05/2 01/2023, 10/30/2022, Additional history exists Depression Screening 11/17/2023 11/17/2022, 11/17/19 23 eGFR 03/29/2025 03/29/2024, 07/0 10/2023, 03/27/2024, Additional history exists Influenza Vaccine (#1) 2025 DTaP/Tdap/Td Vaccine (2 - Td or Tdap) 10/19/2028 10/19/2018, 09/27/2007 Goals Goal Patient Goal Type Associated Problems Recent Progress Patient-Stated? Author Autogenera francisca Goal Care Plan Autogenerated Problem No Flory Lund RN Medical Devices Implanted Type Area Barrel Dedenting Machine Operator Device Identifier Shelf Expiration Date Model / Serial / Lot [employer] Kit Fixation [place] Secondary Swivelock 4.75x19.1mm Ar-1593-[id number] - [id number] Implanted:Qty: 1 on 07/27/2023 by Abdifatah Rooney MD at [facility] Other - see comments Right: Leg [employer] 05/27/2027 AR-1593-[id number] / / [id number] [employer] Swivelock C 4.75mm 19.1mm Closed Eyelet Vent [place] Suture Ar-[id number] - [id number] Implanted:Qty: 1 on 07/27/2023 by Abdifatah Rooney MD at [facility] Other - see comments Right: Leg [employer] 10/27/2026 [id number] / / [id number] Procedures Procedure Name Priority Date/Time Associated Diagnosis Comments POCT GLUCOSE DEVICE Routine 03/13/2025 1 1:41 AM CDT POCT GLUCOSE DEVICE Routine 03/13/2025 1 0:37 AM CDT ME AN PROCEDURE PLACEHOLDER Routine 03/13/2025 10:27 AM CDT ME AN ELECTIVE ENDOTRACHEAL AIRWAY Routine 03/13/2025 10:27 AM CDT CREATION ARTERIOVENOUS FISTULA - ARM 03/13/2025 10:12 AM CDT Chronic kidney disease (CKD), stage V (HCC) POC ISTAT Routine 03/13/2025 8:23 AM CDT POCT GLUCOSE DEVICE Routine 03/13/2025 8 :20 AM CDT US VEIN MAPPING FISTULA ACCESS, BILATERAL Schedule Routine, Read Routine (OP Routine) 02/07/2025 10:13 AM CDT Chronic kidney disease (CKD) stage G5/A1, glomerular filtration rate (GFR) less than or equal to 15 mL/min/1.73 square meter and albuminuria creatinine ratio less than 30 mg/g (HCC) EGFR Routine 03/29/2024 5:05 AM CDT HEMOGLOBIN A1C Routine 02/18/2023 1:35 PM CDT POCT LIPID PANEL Routine 04/29/2022 2:20 PM CDT Lipid screening from Last 3 Months or Most Recently Relevant to Health Maintenance Results * POCT glucose (03/13/2025 11:41 AM CDT) Glucose, POC 132 70 - 199 mg/dL Comment: Interpretive Data Glucose is assumed to be non-fasting. Fasting Glucose reference ranges are: 0 - 150 years: 70 mg/dL - 99 mg/dL Current interpretive data was last revised on 2014. POC Performer [id number] [facility] CORPORATIONDynamic Recreation POC Device Number [id number] [facility] Blood 03/13/2025 11:4 1 AM CDT 03/13/2025 11:41 AM CDT Gary Snyder MD LAB POCT ORDERABLES - DEVICE Final Result Performing Organization Address [facility] Co de Phone Number [facility] [id number] [facility] Laboratories [place] [address] * POCT glucose (03/13/2025 10:37 AM CDT) Glucose, POC 144 70 - 199 mg/dL Comment: Interpretive Data Glucose is assumed to be non-fasting. Fasting Glucose reference ranges are: 0 - 150 years: 70 mg/dL - 99 mg/dL Current interpretive data was last revised on 2014. POC Performer [id number] [facility] Fineline POC Device Number [id number] [facility] [place], [facility] Blood 03/13/2025 10:3 7 AM CDT 03/13/2025 10:37 AM CDT Gary Snyder MD LAB POCT ORDERABLES - DEVICE Final Result Performing Organization Address City/[facility]/ZIP Co de Phone Number [facility] [address] Department [place] [address] * ME AN ELECTIVE ENDOTRACHEAL AIRWAY, ME AN PROCEDURE PLACEHOLDER (03/13/2025 10:27 AM CDT) Narrative Anselmo Pritchett CRNA - 03/13/2025 10:27 AM CDT Anselmo Pritchett CRNA 03/13/2025 10:28 AM Airway Patient location: OR Urgency: elective Indications for airway management: anesthesia Difficult airway: no Staff: Placed by: AIRCRAFT MACHINIST: Anselmo Pritchett CRNA Emergent airway documentation: Risks and benefits discussed: yes Consent obtained: yes Consent given by: patient Airway prep: Preoxygenated: yes Patient position: sniffing Mask difficulty assessment: 1 - vent by mask Spontaneous ventilation during airway: absent Sedation level during airway: GA Final airway details: Final airway type: endotracheal airway Tube type: ETT ETT size: 6.5 mm Cuffed: yes Technique used for successful ETT placement: video laryngoscopy Devices/Methods used in placement: stylet and LTA Insertion site: oral Blade type: Do Video blade type: Akins Blade size: 3 Cormack-Lehane (video): grade I - full view of glottis Cuff volume: 7 mL Cuff inflated with: air ETT to lips: 21 cm Placement verified by: auscultation and CO2 detection Airway secured with: silk tape Number of attempts: 1 [facility] ANESTHESIA ORDERABLES Final Res ult * (ABNORMAL) POC ISTAT (03/13/2025 8:23 AM CDT) [facility] K POC 5.3(H) 3.3 - 4.9 mmol/L Comment: Interpretive Data This method is not able to assess for hemolysis, which may falsely increase potassium concentrations. If further testing is needed to evaluate this result, consider in-laboratory plasma potassium. Current Interpretive Data was last revised on 2022. POC Device Number [id number] [facility] POC Performer [id number] [facility] Blood 03/13/2025 8:23 AM CDT 03/13/2025 8:23 AM CDT Gary Snyder MD LAB BLOOD ORDERABLES Final Re sult Performing Organization Address [facility] Co de Phone Number [facility] [address] [facility] [employer] [place], [place] [id number] * POCT glucose (03/13/2025 8:20 AM CDT) Glucose, POC 145 70 - 199 mg/dL Comment: Interpretive Data Glucose is assumed to be non-fasting. Fasting Glucose reference ranges are: 0 - 150 years: 70 mg/dL - 99 mg/dL Current interpretive data was last revised on 2014. POC Performer [id number] [facility] POC Device Number [id number] [facility] Blood 03/13/2025 8:20 AM CDT 03/13/2025 8:20 AM CDT Gary Snyder MD LAB POCT ORDERABLES - DEVICE Final Result Performing Organization Address [facility] Co de Phone Number [facility] [address] [facility] [place] [address] * US Vein Mapping Fistula Access, Bilateral (02/07/2025 10:13 AM CDT) Anatomical Region Laterality Modality Vascular Bilateral Ultrasound 02/07/2025 9:50 AM CDT Narrative 02/07/2025 10:01 PM CDT [facility] - Department of Vascular Surgery, Vascular Laboratory [address] [place] [id number] Upper Extremity Vein Mapping Report Patient Name: JEANETTE HERNANDEZ : 1965 (60y ) Study Date: 02/07/2025 9:50:25 AM Gender: F Emergency Medical Technician: Location: [facility] Ref Provider: GARY SNYDER Quality: Adequate Order Provider: GARY SNYDER PROCEDURES: Mapping Report: Bilateral Upper Extremity Vein Mapping. INDICATIONS: chronic kidney disease stage 5 (failure) GFR<15 mL/min; check veins for hd access Dx: Chronic kidney disease (CKD) stage G5/A1, glomerular filtration rate (GFR) less than or equal to 15 mL/min/1.73 square meter and albuminuria creatinine ratio less than 30 mg/g ([facility]) [N18.5 (ICD-10-CM)] N18.5 Chronic kidney disease, stage 5. MEASUREMENTS: Right Value Units Left Value Units Rt Axillary Vein Diameter 1.06 cm Lt Axillary Vein Diameter 1.07 cm Rt Prox Brachial Vein D. 1 0.34 cm Lt Prox Brachial Vein D. 1 0.39 cm Rt Prox Brachial Vein D. 2 0.29 cm Lt Prox Brachial Vein D. 2 0.28 cm Rt Mid Brachial Vein D. 1 0.19 cm Lt Mid Brachial Vein D. 1 0.35 cm Rt Mid Brachial Vein D. 2 0.32 cm Lt Mid Brachial Vein D. 2 0.31 cm Rt Dist Brachial Vein D. 1 0.13 cm Lt Dist Brachial Vein D. 1 0.20 cm Rt Dist Brachial Vein D. 2 0.18 cm Lt Dist Brachial Vein D. 2 0.27 cm Rt Cephalic Vein Zone 1 0.31 cm Lt Cephalic Vein Zone 1 0.33 cm Rt Cephalic Vein Zone 2 0.27 cm Lt Cephalic Vein Zone 2 0.31 cm Rt Cephalic Vein Zone 3 0.26 cm Lt Cephalic Vein Zone 3 0.34 cm Rt Cephalic Vein Zone 4 0.36 cm Lt Cephalic Vein Zone 4 0.33 cm Rt Cephalic Vein Zone 5 0.26 cm Lt Cephalic Vein Zone 5 0.33 cm Rt Cephalic Vein Zone 6 0.31 cm Lt Cephalic Vein Zone 6 0.27 cm Rt Cephalic Vein Zone 7 0.31 cm Lt Cephalic Vein Zone 7 0.24 cm Rt Basilic Vein Zone 1 0.56 cm Lt Basilic Vein Zone 1 0.55 cm Rt Basilic Vein Zone 2 0.64 cm Lt Basilic Vein Zone 2 0.48 cm Rt Basilic Vein Zone 3 0.27 cm Lt Basilic Vein Zone 3 0.52 cm Rt Basilic Vein Zone 4 0.24 cm Lt Basilic Vein Zone 4 0.41 cm Rt Basilic Vein Zone 5 0.35 cm Lt Basilic Vein Zone 5 0.35 cm Rt Basilic Vein Zone 6 0.31 cm Lt Basilic Vein Zone 6 0.33 cm Rt Basilic Vein Zone 7 0.23 cm Lt Basilic Vein Zone 7 0.33 cm Right Value Units Left Value Units FINDINGS: Performing Emergency Medical Technician: Tereza Chaidez RVT, GUERITA. Bilateral: Venous Doppler signals in the bilateral upper extremities are within normal limits for spontaneity and phasicity; normal response to compression maneuvers. Duplex imaging of bilateral cephalic and basilic veins reveals the cross-sectional measurements noted above. No evidence of superficial vein thrombus. CONCLUSIONS: 1. Duplex imaging of bilateral cephalic and basilic veins reveals the cross- sectional measurements noted above. No evidence of superficial vein thrombus. 2. No evidence of acute deep vein thrombosis bilaterally in the upper extremities. HISTORY: LANNY, chronic renal failure, HLD, PAD, HTN, s/p BKA, DM2. PREVIOUS STUDIES: No previous studies for comparison. DISCLAIMER: Zone 1 = proximal arm; Zone 2 = mid arm; Zone 3 = distal arm; Zone 4 = ante- cubital; Zone 5 = proximal forearm; Zone 6 = mid forearm; Zone 7 = distal forearm. All measurements are obtained with a tourniquet placed on the upper arm unless it is contraindicated and noted in the report. The study images and the final report will be retained in the patient chart by the Vascular Laboratory for the legally required time period. This chart constitutes the legal record of any testing performed. ATTESTATION: I have reviewed and interpreted the pertinent images and measurements of this study. I attest to the conclusions in the final report that is provided above. Electronically Signed By: Gary Snyder MD FACS 02/07/2025 8:46:50 PM CDT Procedure Note Gary Snyder MD - 02/07/2025 [facility] - Department of Vascular Surgery,Vascular Laboratory [address] [place] [id number] Upper Extremity Vein Mapping Report Patient Name: JEANETTE HERNANDEZ : 1965 (60y ) Study Date: 02/07/2025 9:50:25 AM Gender: F Emergency Medical Technician: Location: [facility] Ref Provider: GARY SNYDER Quality: Adequate Order Provider: GARY SNYDER PROCEDURES: Mapping Report: Bilateral Upper Extremity Vein Mapping. INDICATIONS: chronic kidney disease stage 5 (failure) GFR<15 mL/min; check veins for hdaccess Dx: Chronic kidney disease (CKD) stage G5/A1, glomerular filtration rate(GFR) less than or equal to 15 mL/min/1.73 square meter and albuminuria creatinine ratioless than 30 mg/g ([facility]) [N18.5 (ICD-10-CM)] N18.5 Chronic kidney disease, stage 5. MEASUREMENTS: Right Value Units Left Value Units Rt Axillary Vein Diameter 1.06 cm Lt Axillary Vein Diameter 1.07 cm Rt Prox Brachial Vein D. 1 0.34 cm Lt Prox Brachial Vein D. 1 0.39 cm Rt Prox Brachial Vein D. 2 0.29 cm Lt Prox Brachial Vein D. 2 0.28 cm Rt Mid Brachial Vein D. 1 0.19 cm Lt Mid Brachial Vein D. 1 0.35 cm Rt Mid Brachial Vein D. 2 0.32 cm Lt Mid Brachial Vein D. 2 0.31 cm Rt Dist Brachial Vein D. 1 0.13 cm Lt Dist Brachial Vein D. 1 0.20 cm Rt Dist Brachial Vein D. 2 0.18 cm Lt Dist Brachial Vein D. 2 0.27 cm Rt Cephalic Vein Zone 1 0.31 cm Lt Cephalic Vein Zone 1 0.33 cm Rt Cephalic Vein Zone 2 0.27 cm Lt Cephalic Vein Zone 2 0.31 cm Rt Cephalic Vein Zone 3 0.26 cm Lt Cephalic Vein Zone 3 0.34 cm Rt Cephalic Vein Zone 4 0.36 cm Lt Cephalic Vein Zone 4 0.33 cm Rt Cephalic Vein Zone 5 0.26 cm Lt Cephalic Vein Zone 5 0.33 cm Rt Cephalic Vein Zone 6 0.31 cm Lt Cephalic Vein Zone 6 0.27 cm Rt Cephalic Vein Zone 7 0.31 cm Lt Cephalic Vein Zone 7 0.24 cm Rt Basilic Vein Zone 1 0.56 cm Lt Basilic Vein Zone 1 0.55 cm Rt Basilic Vein Zone 2 0.64 cm Lt Basilic Vein Zone 2 0.48 cm Rt Basilic Vein Zone 3 0.27 cm Lt Basilic Vein Zone 3 0.52 cm Rt Basilic Vein Zone 4 0.24 cm Lt Basilic Vein Zone 4 0.41 cm Rt Basilic Vein Zone 5 0.35 cm Lt Basilic Vein Zone 5 0.35 cm Rt Basilic Vein Zone 6 0.31 cm Lt Basilic Vein Zone 6 0.33 cm Rt Basilic Vein Zone 7 0.23 cm Lt Basilic Vein Zone 7 0.33 cm Right Value Units Left Value Units FINDINGS: Performing Emergency Medical Technician: Tereza Chaidez RVT, RDMS. Bilateral: Venous Doppler signals in the bilateral upper extremities arewithin normal limits for spontaneity and phasicity; normal response to compressionmaneuvers. Duplex imaging of bilateral cephalic and basilic veins reveals thecross-sectional measurements noted above. No evidence of superficial vein thrombus. CONCLUSIONS: 1. Duplex imaging of bilateral cephalic and basilic veins reveals thecross- sectional measurements noted above. No evidence of superficial vein thrombus. 2. No evidence of acute deep vein thrombosis bilaterally in the upperextremities. HISTORY: LANNY, chronic renal failure, HLD, PAD, HTN, s/p BKA, DM2. PREVIOUS STUDIES: No previous studies for comparison. DISCLAIMER: Zone 1 = proximal arm; Zone 2 = mid arm; Zone 3 = distal arm; Zone 4 =ante- cubital; Zone 5 = proximal forearm; Zone 6 = mid forearm; Zone 7 = distal forearm. All measurements are obtained with a tourniquet placed on the upper armunless it is contraindicated and noted in the report. The study images and the final report will be retained in the patientchart by the Vascular Laboratory for the legally required time period. This chartconstitutes the legal record of any testing performed. ATTESTATION: I have reviewed and interpreted the pertinent images and measurements ofthis study. I attest to the conclusions in the final report that is provided above. Electronically Signed By: Gary Snyder MD [facility] 02/07/2025 8:46:50 PM CDT Gary Snyder MD IM US PROCEDURES Final Resul t * (ABNORMAL) eGFR (03/29/2024 5:05 AM CDT) eGFR 27(L) >=60 mL/min/1. 73 m2 Comment: Interpretive Data Reference Interval Normal >/= 90 mL/min/1.73m2 Mildly decreased* 60 - 89 mL/min/1.73m2 Mildly to moderately decreased 45 - 59 mL/min/1.73m2 Moderately to severely decreased 30 - 44 mL/min/1.73m2 Severely decreased 15 - 29 mL/min/1.73m2 Kidney Failure < 15 mL/min/1.73m2 *Relative to young adult level Estimated glomerular filtration rate is determined by the 2020 CKD-EPI equation recommended by the National Kidney Foundation (A Unifying Approach to GFR Estimation: Recommendations of the NKF-ASK Task Force on Reassessing the Inclusion of Race in Diagnosing Kidney Disease, JASN 2020). The CKD-EPI equation should not be used for patients with unstable renal function and has not been validated in children and those over 70. Current interpretive data was last reviewed 2021. Blood 03/29/2024 5:05 AM CDT 03/29/2024 5:09 AM CDT us Shayne Rodriguez MD LAB BLOOD ORDERABLES Final Result Performing Organization Address [facility] Co de Phone Number [facility] ([place]) [address] [facility] [place] [address] * Hemoglobin A1c (02/18/2023 1:35 PM CDT) Pathologist [facility] Hgb A1C 4.8 4.0 - 5.6 % [facility] Estimated Average Glucose 91 mg/dL [facility] Comment: The ADA recommends reporting an estimated Average Glucose (eAG) with all Hemoglobin A1c results using the equation derived from a study of 507 normal and diabetic adults. Minority populations were underrepresented and children were not included. (Diabetes Care 31:6114-3124, 2008). The eAG is not equivalent to a fasting glucose. Blood 02/18/2023 1:35 PM CDT 02/18/2023 2:50 PM CDT us Katie Hernandez MD LAB BLOOD ORDERABLES Final R esult Performing Organization Address [facility] Co de Phone Number [facility] ([place] [address] [facility] [place] [address] * POCT lipid panel (04/29/2022 2:20 PM CDT) Cholesterol, POC 104 mg/dL HDL, POC 20 mg/dL Triglycerides, POC 260 mg/dL LDL Cholesterol POC 32 mg/dL Chol/HDL Ratio, POC 5.2 Non-HDL Cholesterol, POC 84 mg/dL Cholesterol Total, POC 104 mg/dL Capillary blood 04/29/2022 2 :20 PM CDT Kwan Evans MD POINT OF CARE TEST ORDER FLORENCIO Final Result from Last 3 Months or Most Recently Relevant to Health Maintenance Additional Health Concerns Active Problems Noted Date Diagnosed Date Autogenerated Problem 03/12/2025 Insurance Easiest Credit Card To Get Approved ForNA OPEN ACCESS Easiest Credit Card To Get Approved ForNA OPEN ACCESS Easiest Credit Card To Get Approved ForNA OPEN ACCESS Advance Directives For more information, please contact: [phone] * Full Code (Latest Code Status on File) Date Activated Date Inactivated Comments 03/25/2024 12:34 AM 03/29/2024 6:48 PM * Full Code Date Activated Date Inactivated Comments 02/18/2023 8:34 PM 02/24/2023 6:18 PM * Full Code Date Activated Date Inactivated Comments 11/17/2022 11:11 PM 11/27/2022 3:53 PM * Full Code Date Activated Date Inactivated Comments 11/16/2022 1:50 PM 11/17/2022 9:12 PM * Full Code Date Activated Date Inactivated Comments 10/30/2022 5:47 AM 11/16/2022 1:50 PM Care Teams Instructor Adjunct Surgical Technician Relationship Specialty Start Date End Date Federico Meza MD PCP - General Family Medicine 10/21/21 Matthew Leon, [address] [place] [address] Consulting Physician Foot and Ankle Surg 07/16/22
--- OUTSIDE RECORDS SUMMARY | 2025-03-31 12:10 | XMS_ITS | Referral Summary ---
Author Organization [facility] [address] Address [address] [place] [address] Care Team Providers Care Envelope Sealer Operator Name Role Phone Federico Meza MD Primary Care Provider [phone] Matthew Leon DPM Unavailable [phone] Encounters Date Type Department Care Team Description 03/06/2025 11:59 PM CDT Anesthesia Event [facility] Operating Room [address] [place] [address] Dania Cyr NP 03/13/2025 9:40 AM CDT - 03/13/2025 11:40 AM CDT Surgery [facility] Operating Room [id number] [place] [address] Gary Snyder MD CREATION ARTERIOVENOUS FISTULA - ARM 03/13/2025 10:11 AM CDT Anesthesia Event [facility] Operating Room [address] [place] [address] Cindy Escobar DO [place], Jill Marie, NP 03/13/2025 7:08 AM CDT - 03/13/2025 12:40 PM CDT Hospital Encounter [facility] Operating Room [address] [place] [address] Gary Snyder MD Chronic kidney disease (CKD), stage V (HCC) (Primary Dx) Discharge Disposition: Discharge to home or self care 03/12/2025 Telephone [facility] Vascular Surgery [address] [facility] [place] [address] Gary Snyder MD 02/07/2025 Telephone [facility] Vascular Surgery [address] [facility] [place] [address] Gary Snyder MD 02/07/2025 10:15 AM CDT Ancillary Procedure [facility] Vascular Lab at the [facility] Advanced Medicine [address] [place] [address] 8th [place] [address] Chronic kidney disease (CKD) stage G5/A1, glomerular filtration rate (GFR) less than or equal to 15 mL/min/1.73 square meter and albuminuria creatinine ratio less than 30 mg/g (HCC) 02/07/2025 9:45 AM CDT Office Visit [facility] Surgery [address] [place] [address] 8th [place] [address] Gary Snyder MD Chronic kidney disease (CKD) stage G5/A1, glomerular filtration rate (GFR) less than or equal to 15 mL/min/1.73 square meter and albuminuria creatinine ratio less than 30 mg/g (HCC) (Primary Dx); Chronic kidney disease, stage V (HCC) from Last 3 Months Allergies Active Allergy Reactions Criticality Noted Date [...] 10/30/2022 Assessment & Plan (10/30/2022 1:44 PM SUPERVISOR [employer]): Multifactorial from CKD stage 4 and acute [...] 10/30/2022 Assessment & Plan (10/30/2022 1:42 PM SUPERVISOR [employer]): Potassium level 5.7 on presentation, improved to [...] 2.13 Assessment & Plan (09/22/2022 12:02 PM [employer]PER[employer]): Continue to encourage p.o. fluid intake, creatinine increased to over 5, has now returned back to baseline around 3.2 Assessment & Plan (09/15/2022 12:08 PM [employer]): Renal function slowly improving, continue oral fluid intake. Assessment & Plan (09/14/2022 9:47 AM SUPERVIS[employer]): Cr remains high, adding more IVF with potassium supplement added also. Follow daily labs. Antibiotics remain on hold 2/ renal function Assessment & Plan (09/11/2022 2:21 PM SUPERVISOR [employer]): Cr continues to improve. Anna remains on hold, unsure on restarting, still above current baseline since admission. Receiving IVF today, 3rd bag. Recheck labs Wednesday. Assessment & Plan (09/11/2022 10:00 AM [employer]PER[employer]): Creatinine improved from 5.10-5 today. Continue IV fluid. Will repeat renal function a.m.. If creatinine worsens, may consider transferring patient to ER Assessment & Plan (09/08/2022 1:20 PM [employer]PER[employer]OR [employer]): Patient with acute change in creatinine up to 5.0, IV fluids initiated, we will repeat labs in a.m. encouraged p.o. fluid intake if possible. If patient's blood pressure changes, has any other clinical decline would recommend returning to emergency department for nephrology evaluation. COVID 08/25/2022 Assessment & Plan (09/22/2022 12:04 PM [employer]PER[employer]): Diagnosed with COVID on 07/03/2022, again positive on 08/22/2022 but patient was asymptomatic and did not require any further treatment. Continue supportive care Assessment & Plan (09/08/2022 1:24 PM [employer]PERVISOR [employer]): Clinical change with increased rhonchi, sats stable but will check CXR with new leukocytosis. Patient originally diagnosed with COVID on 07/03/2022 underwent treatment during hospital stay then. Had a new positive test 08/22/2022 on routine facility testing, has chronic congested cough but otherwise had no new symptoms. Assessment & Plan (09/01/2022 8:50 PM [employer]PER[employer]): Pt asymptomatic.Requesting repeat testing. Pt comes off isolation in am, so repeat testing is not necessary. Continue supportive care Assessment & Plan (08/26/2022 4:23 PM [employer]PER[employer]): Patient reports that she did have a [...] days Assessment & Plan (08/25/2022 11:35 AM [employer]PER[employer]OR [employer]): Pt diagnosed with COVID 08/22 on routine facility testing, pt asymptomatic at present. Pt previously diagnosed with COVID 07/03/22 - so doubt this is a new infection. Will continue to offer supportive care. Gross hematuria 08/25/2022 Assessment & Plan (08/27/2022 11:48 AM SUPERVISOR [employer]): UA ordered for Wednesday but no results - have notified nursing and asked to collect. Assessment & Plan (08/25/2022 11:54 AM SUPERVISOR [employer]): Check UA - h/h lower, not lenora blood. Pt is on heparin - will place on hold for now. Other specified anemias 08/25/2022 Assessment & Plan (09/22/2022 12:02 PM [employer]): H&H continues to improve, did receive some Epogen during her stay. Continue iron supplementation Assessment & Plan (09/14/2022 9:48 AM SUPERVISOR [employer]): H/H lower, will give epo today, recheck in am, may need transfusion Assessment & Plan (09/11/2022 2:23 PM [employer]PER[employer]): Hmg 6.9. Transfusion ordered but patient refused today. Recheck labs Wednesday. Could be r/t diluation with IVF also. Heparin on hold. Assessment & Plan (09/08/2022 1:27 PM [employer]): H&H has been stable, continue supplemental iron. Monitor Assessment & Plan (09/04/2022 1:58 PM [employer]PER[employer]): H&H with continued to decline. Continue to hold heparin, add iron although patient may not tolerate due to ongoing GI complaints. Will follow-up H&H 09/07/2022. Patient may need EPO Assessment & Plan (08/26/2022 4:26 PM [employer]PER[employer]): Heparin remain on hold, follow-up labs ordered but not done, will follow-up when labs available. Assessment & Plan (08/25/2022 11:55 AM [employer]PER[employer]): H/H slowly trending down, will hold heparin. Recheck in am. Hyperphosphatemia 08/17/2022 Assessment & Plan (08/17/2022 12:34 PM [employer]PER[employer]): Started on Sevelamer. Check level with next set of labs. Asymptomatic microscopic hematuria 08/17/2022 Assessment & Plan (08/17/2022 12:38 PM SUPERVIS[employer]): Will need urology f/u outpt. Former smoker. Nausea & vomiting 08/14/2022 Assessment & Plan (09/22/2022 12:00 PM SUPER[employer]): This has been an ongoing issue since admission to [facility]. Patient does better with Pepcid, reduce Pepcid to 20 mg daily due to renal function. Continue p.r.n. Zofran Assessment & Plan (09/18/2022 1:23 PM SUPER[employer]): Intermittent. Large emesis today & yesterday. Schedule Zofran q8h & Pepcid PO. Poor PO intake per patient & staff. Meds reviewed. Believe large part psychlogical. Assessment & Plan (09/15/2022 12:09 PM [employer]PER[employer]): Resolved, give 2 more doses of pepcid then DC. Assessment & Plan (09/13/2022 3:50 PM [employer]PER[employer]): Improved. Did not receive IV Pepcid or IV Compazine d/t pharmacy not having. Will monitor for now. Believe may be s/t CDiff. Assessment & Plan (09/11/2022 2:25 PM [employer]PER[employer]): Comes and goes - no pattern. Is [...] 08/04/2022 Assessment & Plan (09/13/2022 3:51 PM SUPER[employer]): Completed IVF. Repeat labs pending for am. Assessment & Plan (09/04/2022 1:57 PM SUPER[employer]): Creatinine increased to 3.2, patient had some nausea, limiting her p.o. intake in the past 24 hours. Will give IV fluids, 2 L, recheck labs on 09/07/2022. Encouraged p.o. fluid intake if able. Continue Zofran for symptomatic management. Assessment & Plan (08/28/2022 6:22 PM [employer]): Renal function without improvement, sodium has improved from 129-132. Patient's p.o. intake remains suboptimal, agrees to 1 L normal saline, follow-up labs 08/31/2022 Assessment & Plan (08/27/2022 11:49 AM SUPER[employer]): Labs not drawn as ordered 08/26. Have emailed lab and asked for labs to be done STAT. Monitor. Assessment & Plan (08/26/2022 4:25 PM [employer]PER[employer]): Patient appears to be better, blood pressure controlled, repeat labs are still pending. Tolerated 1 L of normal saline well. Assessment & Plan (08/25/2022 11:52 AM SUPERVISOR [employer]): Cr worsened, now 2.8, new hyponatremia. Will give 1L NS, recheck labs in am Assessment & Plan (08/17/2022 12:34 PM [employer]PER[employer]): Continues to improve. Cr 1.6. Assessment & Plan (08/13/2022 6:33 AM SUPERVISOR [employer]): Follow-up BMP 08/13 Assessment & Plan (08/11/2022 9:11 AM SUPERVISOR [employer]): Cr 2.5. Slowly trending down. Continue renally dose abx. Continue to hold gabapentin & Cymbalta. No complaints of increased pain. Lovenox changed to Heparin. Assessment & Plan (08/07/2022 11:05 AM [employer]PER[employer]): Cr 2.6 - improved. On , will d/c after compeltion. Recheck labs Wednesday. Continue to hold nephrotoxins. Assessment & Plan (08/06/2022 12:31 PM SUPERVIS[employer]): Cr 3 today. Hold lovenox, Lasix, Gabapentin. Start IVF - recheck labs in am. Have notifed ID about abx adjustment. Labs ordered for am. May need to consult Nephrology. Assessment & Plan (08/04/2022 3:28 PM [employer]PER[employer]): Cr continues to climb. CK stable at 38. Liver enzymes stable. Have discussed labs with pharmacy. Will decrease Cipro to 200mg BID, Dapto q48h, continue Lasix d/t anasarca. Repeat labs . Monitor closely, hold fluids d/t edema at this time. Hyponatremia 07/21/2022 Assessment & Plan (09/22/2022 12:01 PM [employer]PER[employer]): Resolved Assessment & Plan (08/26/2022 4:25 PM SUPERVIS[employer]): Patient had worsening hyponatremia, fluid resuscitated yesterday, repeat labs are still pending despite multiple orders written. Assessment & Plan (08/11/2022 9:10 AM SUPER[employer]): Na 132. NaCl d/c d/t edema. Assessment & Plan (08/07/2022 11:05 AM SUPERVISOR [employer]): Improved with IVF Assessment & Plan (08/04/2022 3:30 PM SUPERVISOR [employer]): Holding NaCl tab & Cymbalta with edema Assessment & Plan (08/03/2022 12:31 PM SUPERVISOR [employer]): Na remains low, is on NaCl TID [...] rash. Assessment & Plan (09/22/2022 12:06 PM SUPERVIS[employer]): Patient with multiple pull and varied skin rashes throughout her stay. Will start triamcinolone for scaly annular left lower extremity rash. Follow-up with PCP Assessment & Plan (08/13/2022 6:31 AM SUPERVISOR [employer]): Now patient complaining to RN of itchiness to legs. Continue Benadryl 25 mg q.8 p.r.n., will start prednisone 20 mg x 5 days, Assessment & Plan (08/11/2022 1:04 PM [employer]): Reoccurred today, appears like petechiae on leg - could be r/t dressing used at wound clinic Unsure cause. Will monitor. Assessment & Plan (08/03/2022 12:33 PM [employer]PER[employer]): Continues to resolve Assessment & Plan (07/31/2022 [...] 07/21/2022 Assessment & Plan (09/22/2022 12:05 PM [employer]PER[employer]): Stable/improved with gabapentin Assessment & Plan (08/17/2022 12:35 PM SUPERVIS[employer]): Cr improved. Will restart gabapentin. Monitor. Assessment & Plan (08/11/2022 9:15 AM SUPERVIS[employer]): Gabapentin & Cymalta held with Cr. Montior for ability to resume. Assessment & Plan (07/21/2022 5:45 AM CDT): Symptoms controlled with gabapentin 300 mg t.i.d.. Anxiety and depression 07/21/2022 Assessment & Plan (09/22/2022 12:05 PM [employer]): Patient remains withdrawn although has improved with increasing Wellbutrin dose. Cymbalta discontinued due to increasing renal function. Continue trazodone nightly for sleep Assessment & Plan (09/16/2022 1:28 PM [employer]PER[employer]): Continue supportive care, continue increased Wellbutrin Assessment & Plan (08/27/2022 11:47 AM SUPER[employer]OR [employer]): Increased depression with change in abx. Very flat/withdrawn. Will increase Wellbutrin. Have notified SS for counseling. Assessment & Plan (08/25/2022 11:43 AM [employer]PER[employer]): Pt withdrawn, needs encouragement. Continue wellbutrin 150mg daily, duloxetine. Assessment & Plan (08/17/2022 12:37 PM [employer]PER[employer]): Increased depression. Previously on Wellbutrin 300mg at home. Will resume at 150mg. Monitor. SS to discuss DCP. Currently on Daptomycin which is expensive for HH. Uncertain of support system for home also. Assessment & Plan (08/11/2022 12:57 PM [employer]PER[employer]): Cymbalta had been on hold for cr, improving and patient asking to restart. Will restart. Monitor. Assessment & Plan (07/21/2022 5:46 AM CDT): Continue home med trazodone 150 mg nightly, amitriptyline 50 mg nightly, duloxetine 30 mg Hypokalemia 07/21/2022 Assessment & Plan (09/22/2022 12:01 PM [employer]PER[employer]): Now with hyperkalemia since GI loss has improved. We will hold supplemental potassium, give lokelma x 1. Repeat BMP in a, rec f/u 09/25 Assessment & Plan (09/16/2022 1:28 PM [employer]PER[employer]): Likely secondary to GI loss, increase p.o. supplement Assessment & Plan (09/14/2022 9:48 AM SUPERVISOR [employer]): Increased PO supplement, also give some in IVF Assessment & Plan (09/11/2022 2:22 PM SUPERVISOR [employer]): Improved restarted on PO potassium per MD. Assessment & Plan (09/11/2022 10:02 AM SUPERVIS[employer]): Potassium improved to 3. Will receive IV fluid with potassium chloride 1 L today again. Repeat labs a.m. Assessment & Plan (09/08/2022 1:31 PM SUPER[employer]): Attempt oral repleation - may need to add to IV if not able to take po Assessment & Plan (08/11/2022 9:10 AM SUPERVISOR [employer]): Level stable. Supplement d/c. Monitor. Assessment & Plan (08/03/2022 12:31 PM SUPER[employer]OR [employer]): Stable on supplement. Assessment & Plan (07/27/2022 [...] same Assessment & Plan (09/22/2022 11:59 AM SUPERVISOR [employer]): Blood pressures been lower throughout her stay, metoprolol has been discontinued, monitor as an outpatient, consider restarting if needed Assessment & Plan (09/11/2022 2:15 PM SUPERVISOR [employer]): BP stable. BB remains on hold. Assessment & Plan (09/08/2022 1:32 PM SUPERVISOR [employer]): BP lower, will place metoprolol on hold Assessment & Plan (09/04/2022 1:59 PM SUPERVISOR [employer]): Blood pressure stable, continue metoprolol 25 mg b.i.d. Assessment & Plan (08/28/2022 6:26 PM SUPERVISOR [employer]): Blood pressure variable but generally controlled, continue Lopressor Assessment & Plan (08/17/2022 12:31 PM SUPERVISOR [employer]): BP elevated. Currently on no meds. Will add Lopressor 25mg BID & monitor. Assessment & Plan (08/14/2022 10:59 AM SUPERVISOR [employer]): BP fluctuating. Monitor, may need adjustment. Assessment [...] 07/03/2022 Assessment & Plan (10/30/2022 1:46 PM SUPERVISOR [employer]): Replace home linagliptin with SSI for now, can start basal/bolus regimen if glucose is persistently elevated. Assessment & Plan (09/22/2022 12:00 PM SUPERVISOR [employer]): Blood sugars have been labile during her stay, Tresiba have been restarted however then had hypoglycemic episodes. Patient will be discharging home on Tradjenta 5 mg daily. Recommend monitoring blood sugars at least b.i.d., follow-up with PCP for further medication management Assessment & Plan (09/11/2022 2:17 PM SUPERVIS[employer]): BS 80-124. No requiring insulin & Tresiba remains on hold. Assessment & Plan (09/08/2022 1:33 PM SUPERVISOR [employer]): Morning BS lower - will place tresiba on hold. Continue SSI with meals Assessment & Plan (09/04/2022 2:00 PM SUPERVISOR [employer]): No hypoglycemic episodes, blood sugars ranging from 135-168, continue Tresiba 5 units q.h.s., sliding scale insulin with meals Assessment & Plan (09/01/2022 8:53 PM SUPER[employer]OR [employer]): BS remains controlled, continue tight glycemic control to improve wound healing. Continue tresiba 5 units qhs, SSI. Assessment & Plan (08/25/2022 11:45 AM SUPERVISOR [employer]): BS generally controlled with tresiba 5 units qhs, tradjenta, SSI. No documented hypoglycemic episodes. Assessment & Plan (08/17/2022 12:32 PM SUPERVIS[employer]): BS 101-250. Continue Tradjenta, SSI, Will restart Tresiba at 5u nightly. Monitor. Assessment & Plan (08/13/2022 6:33 AM SUPERVISOR [employer]): BG 115-177. Continue SSI, may expect elevated BG secondary to prednisone starting today Assessment & Plan (08/11/2022 1:00 PM SUPERVISOR [employer]): BS 147-223. Currently on SSI but not requiring often. Assessment & Plan (08/07/2022 11:02 AM SUPERVISOR [employer]): BS stable with some elevation - will resume SSI for wound health. Monitor. Assessment & Plan (08/03/2022 12:31 PM SUPERVISOR [employer]): BS running 74-156 on only Tradjenta, continue [...] (07/05/2022): Added automatically from request for surgery [id number] Assessment & Plan (07/21/2022 5:33 AM CDT): [...] colitis Assessment & Plan (10/30/2022 1:38 PM SUPER[employer]): Continues to have diarrhea after 10 day course of fidoxamicin, will start long vancomycin taper. ID consulted. Assessment & Plan (09/22/2022 12:03 PM SUPERVISOR [employer]): Patient has had recurrent C diff, completed Dificid - symptoms have now improved, leukocytosis resolved Assessment & Plan (09/15/2022 12:09 PM SUPERVISOR [employer]): Looser stool improving, completes difacid today. Assessment & Plan (09/14/2022 9:49 AM SUPERVISOR [employer]): Pt still with loose stool - c diff results pending. Rn sent order for stool culture incorrectly - although results are negative. Assessment & Plan (09/11/2022 9:59 AM SUPERVISOR [employer]): Stool tested positive for C diff. for recurrent infection will start on fidaxomicin 200 mg x 10 days, id team has been informed. Continue IV fluid Assessment & Plan (09/08/2022 9:17 PM SUPERVIS[employer]): Diarrhea has returned, will check for C diff, continue replacement fluids Assessment & Plan (08/26/2022 4:22 PM SUPER[employer]OR [employer]): Patient is not having frequent loose stools, she is completed vancomycin. Patient likely can come off isolation for C diff Assessment & Plan (08/25/2022 11:18 AM SUPER[employer]OR [employer]): Pt completed vancomycin. Continue to monitor for loose stool as pt remains on antibiotics. Assessment & Plan (08/03/2022 12:32 PM SUPERVISOR [employer]): Diarrhea stable. Continue PO vanc taper. Assessment [...] (10/30/2022): Added automatically from request for surgery [id number] Lower abdominal pain 08/14/2022 022 Assessment & Plan (08/17/2022 12:33 PM SUPERVISOR [employer]): Resolved. CT negative. Assessment & Plan (08/14/2022 10:55 AM SUPERVISOR [employer]): Patient having lower abd pain with n/v for >72d. She is afebrile, labs stable, LFTs normalized, no diarrhea, BS well controlled. Tenderness to abd on palpation. Will obtain CT of abd pelvis, will be unable to use contrast with kidneys currently. Continue PRN zofran PO & IV. Will obtain stat labs today + UA. Anasarca 08/04/2022 08/11/2022 Assessment & Plan (08/07/2022 11:06 AM SUPER[employer]): Resolving despite fluids. Assessment & Plan (08/06/2022 12:20 PM SUPER[employer]OR [employer]): Remains puffy in arms but d/t Cr [...] 12/17/2022 Assessment & Plan (09/13/2022 3:51 PM SUPERVISOR [employer]): Cx remains positive for MRSA. Final cx pending. Abx on hold d/t LANNY will need to discuss with ID next week on stop for abx d/t missing doses. Assessment & Plan (08/07/2022 11:06 AM [employer]PER[employer]): Saw ID yesterday, wants abx to continue until 09/08 with weekly labs. Assessment & Plan (08/06/2022 12:18 PM [employer]PER[employer]): Patient has f/u with ID today. Will confirm abx stop date after appt. Assessment & Plan (08/03/2022 12:34 PM [employer]PER[employer]): Continue abx, labs & ID f/u as scheduled. Appreciate their recommendations & consults. Assessment & Plan (07/21/2022 5:27 AM CDT): As in # OM R toe Assessment & Plan (07/17/2022 2:04 PM CDT): SEE above Osteomyelitis of great toe of right foot 07/03/2022 12/17/2022 Overview (07/05/2022): Added automatically from request for surgery [id number] Assessment & Plan (09/22/2022 12:03 PM [employer]): Wound continues to slowly improve with wound VAC in place. Completed IV antibiotics, to complete an additional 2 weeks of doxycycline per Infectious Disease. Has follow-up with Podiatry/wound care clinic in [place] Assessment & Plan (09/16/2022 1:28 PM [employer]PER[employer]): Foot/wound remained stable. Per daughter wound care clinic considering doing hyperbaric treatment once discharged from retirement facility. Tolerating doxycycline without adverse reactions. Patient remains afebrile, without leukocytosis. Wound care nurse will start dressing change training/wound VAC training. We will work on starting wound VAC orders in anticipation for discharge early next week likely not before Wednesday09/22/2022. This was discussed with patient and daughter Assessment & Plan (09/15/2022 12:10 PM [employer]): Wound continues to slowly improve. Wound cx [...] planning Assessment & Plan (09/11/2022 10:02 AM SUPER[employer]OR [employer]): WBC normal. Blood culture negative. Telavancin currently on hold. Patient to start doxycycline from 09/23/2022. Continue wound care Assessment & Plan (09/08/2022 1:32 PM SUPERVIS[employer]): Wound overall is stable, has new leukocytosis. Will check blood cultures, review wound in a.m. with wound care nurse when wound VAC is removed. Repeat cultures ordered We will hold Cipro due to worsening renal function, call out to pharmacist regarding Telavancin dosing - may need adjustment with worsening renal failure Notified ID SUBSTATION MAINTENANCE TECHNICIAN via secure chat Assessment & Plan (09/01/2022 8:45 PM [employer]): Pain controlled, wound stable. Encouraged pt dtr to discuss wound healing possibilities with podiatry and consider repeat tissue sampling after the current coarse of antibiotics. Continue wound vac, patient doing well with therapy. Assessment & Plan (08/28/2022 6:25 PM [employer]PER[employer]): Patient tolerating antibiotic change well. Reinforced need for improvement in documentation of meds given by nursing staff, 2nd dose due today of telavancin through 09/22/2022, Cipro and fluconazole continue. Patient has follow-up wound clinic appointment 08/31/2022, to take Assessment & Plan (08/26/2022 4:21 PM SUPER[employer]OR [employer]): Received call from Infectious Disease that they [...] her. Assessment & Plan (08/25/2022 11:26 AM SUPER[employer]OR [employer]): Pt missed podiatry follow up due to [...] up. Assessment & Plan (08/11/2022 9:14 AM SUPER[employer]OR [employer]): Outpt wound clinic f/u with Dr. Leon today. Continue wound vac MWF. Wear post-op shoe with WB, can heel-touch WB with transfers. F/u 08/24. Assessment & Plan (08/06/2022 12:19 PM [employer]PER[employer]): Wound clinic appt with Dr. Leon 08/10. Assessment & Plan (08/04/2022 3:28 PM [employer]PER[employer]): Was able to reach Dr. Leon. Wants to see in Wound Clinic. Admin working on arranging appt. Assessment & Plan (08/03/2022 12:40 PM [employer]PERVISOR [employer]): Have attempted to call Dr. Fuller office again today. No answer, message left. Photos loaded to [employer]. Concerns with foot. Will add on Lasix [...] (06/30/2022): Added automatically from request for surgery [id number] Assessment & Plan (09/18/2022 1:25 PM SUPERVISOR [employer]): Will be unable to skill patient next week. SS/Wound RN working on d/c changing wound vac and changing to BID dressing changes instead to help with skilling patient. Educated orders must come from Dr. Leon. Assessment & Plan (09/13/2022 3:51 PM [employer]PER[employer]): Patient has f/u podiatry in am. [facility] (ventricular premature complex) 06/24/2022 08/17/2022 Elevated lactic acid level 1 Acute respiratory failure with hypoxia 07/17/2022 Abscess of right lower leg 0 12/17/2022 Assessment & Plan (12/03/2022 11:01 AM SUPERVISOR LONG GOODS): Leg with minimal edema. [place] have been removed. Okay to begin using the stump smoking pipe mounter. Continue with the ampu shield to prevent trauma to the stump. Patient will call us back with any further questions or concerns. Assessment & Plan (10/30/2022 1:40 PM SUPERVISOR LONG GOODS): Likely associated with known osteomyelitis with complicated treatment history. Podiatry consulted, debridement planned in OR on Wednesday. ID consulted because of quick recurrence of infection. Will replace IV vancomycin with IV doxycycline because of recent wound culture growing VISA. Immunizations Immunization Administration Dates Next Due Td, adsorbed 09/27/2007 Tdap 10/19/2018 Social History Tobacco Use Types Packs/Day Years Used Date Smoking Tobacco: Every Day Cigarettes 1 40 Smokeless Tobacco: Never Tobacco Cessation:Ready to Q uit: Not Asked; Counseling Given: Not Answered OASIS D0700: Social Isolation Answer Da te Recorded Frequency of experiencing loneliness or isolatio n Never 03/08/2024 [facility] Utilities Answer Date Recorded In the past 12 months has e [employer], [employer], oil, or water [employer] threatened to shut off services in your [...] often do you attend chur ch or church services? Never 03/27/2024 Do you belong to any clubs o r organizations such as yazidism groups, unions, fraternal or athletic groups, or [...] Recorded Patient Health Questionnaire-2 Score 0 11/26/2022 [facility] [place] of Occupat ional Health - Occupational Stress [...] to sleep or slept in a senior care (including now)? No 02/19/2023 Housing Stability Vital [...] you homeless or living in a senior care (including now)? 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 Author Autogenera francisca Goal Care Plan Autogenerated Problem No Flory Lund RN Medical Devices Implanted Type Area Paper Grader Device Identifier Shelf Expiration Date Model / Serial / Lot [employer] Kit Fixation Glasgow Secondary Swivelock 4.75x19.1mm Ar-1593-Bc - [id number] Implanted:Qty: 1 on 07/27/2023 by Abdifatah Rooney MD at [facility] Other - see comments Right: Leg [employer] 05/27/2027 AR-1593-BC / / [id number] [employer] Swivelock C 4.75mm 19.1mm Closed Eyelet Vent Glasgow Suture Ar-2324bcc - [id number] Implanted:Qty: 1 on 07/27/2023 by Abdifatah Rooney MD at [facility] Other - see comments Right: Leg [employer] 10/27/2026 [id number] / / [id number] Procedures Procedure Name Priority Date/Time Associated Diagnosis Comments POCT GLUCOSE DEVICE Routine 03/13/2025 1 1:41 AM CDT POCT GLUCOSE DEVICE Routine 03/13/2025 1 0:37 AM CDT MT AN PROCEDURE PLACEHOLDER Routine 03/13/2025 10:27 AM CDT MT AN ELECTIVE ENDOTRACHEAL AIRWAY Routine 03/13/2025 10:27 [...] * POCT glucose (03/13/2025 11:41 AM CDT) [facility] Signature Glucose, POC 132 70 - 199 mg/dL Comment: Interpretive Data Glucose is assumed to be non-fasting. Fasting Glucose reference ranges are: 0 - 150 years: 70 mg/dL - 99 mg/dL Current interpretive data was last revised on 2014. POC Performer [id number] [facility] POC Device Number [id number] [facility] Blood 03/13/2025 11:4 1 AM CDT 03/13/2025 11:41 AM CDT us Gary Snyder MD LAB POCT ORDERABLES - DEVICE Final Result Performing Organization Address [facility] Phone Number [facility] [address] [facility] [place] [address] * POCT glucose (03/13/2025 10:37 AM CDT) [facility] Signature Glucose, POC 144 70 - 199 mg/dL Comment: Interpretive Data Glucose is assumed to be non-fasting. Fasting Glucose reference ranges are: 0 - 150 years: 70 mg/dL - 99 mg/dL Current interpretive data was last revised on 2014. POC Performer [id number] [facility] POC Device Number [id number] [facility] Blood 03/13/2025 10:3 7 AM CDT 03/13/2025 10:37 AM CDT us Gary Snyder MD LAB POCT ORDERABLES - DEVICE Final Result Performing Organization Address [facility] Phone Number [facility] [address] [facility] [place] [address] * MT AN ELECTIVE ENDOTRACHEAL AIRWAY, MT AN PROCEDURE PLACEHOLDER (03/13/2025 10:27 AM CDT) Narrative Anselmo Pritchett CRNA - 03/13/2025 10:27 AM CDT Anselmo Pritchett CRNA 03/13/2025 10:28 AM Airway Patient location: OR Urgency: elective Indications for airway management: anesthesia Difficult airway: no Staff: Placed by: ACCOUNTING SYSTEM EXPERT: Anselmo Pritchett CRNA Emergent airway documentation: Risks [...] with: silk tape Number of attempts: 1 Cindy Escobar DO ANESTHESIA ORDERABLES Final Res ult * (ABNORMAL) POC ISTAT (03/13/2025 8:23 AM CDT) K POC 5.3(H) 3.3 - 4.9 mmol/L Comment: Interpretive Data This method is not able to assess for hemolysis, which may falsely increase potassium concentrations. If further testing is needed to evaluate this result, consider in-laboratory plasma potassium. Current Interpretive Data was last revised on 2022. POC Device Number [id number] [employer] POC Performer [id number] [employer] Blood 03/13/2025 8:23 AM CDT 03/13/2025 8:23 AM CDT Gary Snyder MD LAB BLOOD ORDERABLES Final Re sult [facility] [address] [facility]. [place] [address] * POCT glucose (03/13/2025 8:20 AM CDT) Pathologist [facility] Glucose, POC 145 70 - 199 mg/dL Comment: Interpretive Data Glucose is assumed to be non-fasting. Fasting Glucose reference ranges are: 0 - 150 years: 70 mg/dL - 99 mg/dL Current interpretive data was last revised on 2014. POC Performer [id number] [employer] POC Device Number [id number] [facility] Blood 03/13/2025 8:20 AM CDT 03/13/2025 8:20 AM CDT us Gary Snyder MD LAB POCT ORDERABLES - DEVICE Final Result [facility] [address] [facility]. [place] [address] * US Vein Mapping Fistula Access, Bilateral (02/07/2025 10:13 AM CDT) Anatomical Region Laterality Modality Vascular Bilateral Ultrasound 02/07/2025 9:50 AM CDT Narrative 02/07/2025 10:01 PM CDT [facility] - Department of Vascular Surgery, Vascular Laboratory [address] [place] [address] Upper Extremity Vein Mapping Report Patient Name: JEANETTE HERNANDEZ : 1965 (60y ) Study Date: 02/07/2025 9:50:25 AM Gender: F Direct Service Professional: Location: [facility] Provider: GARY SNYDER Quality: Adequate Order Provider: GARY SNYDER PROCEDURES: Mapping Report: Bilateral Upper Extremity Vein Mapping. INDICATIONS: chronic kidney disease stage 5 (failure) GFR<15 mL/min; check veins for hd access Dx: Chronic kidney disease (CKD) stage G5/A1, glomerular filtration rate (GFR) less than or equal to 15 mL/min/1.73 square meter and albuminuria creatinine ratio less than 30 mg/g (HCC) [N18.5 (ICD-10-CM)] N18.5 Chronic kidney disease, stage [...] Value Units Left Value Units FINDINGS: Performing Direct Service Professional: Tereza Chaidez RVT, RDMS. Bilateral: Venous Doppler [...] Procedure Note Gary Snyder MD - 02/07/2025 [facility] - Department of Vascular Surgery,Vascular Laboratory [address] [place] [address] Upper Extremity Vein Mapping Report Patient Name: JEANETTE HERNANDEZ : 1965 (60y ) Study Date: 02/07/2025 9:50:25 AM Gender: F Direct Service Professional: Location: [facility] Ref Provider: GARY SNYDER Quality: Adequate Order Provider: GARY SNYDER PROCEDURES: Mapping Report: Bilateral Upper Extremity Vein Mapping. INDICATIONS: chronic kidney disease stage 5 (failure) GFR<15 mL/min; check veins for hdaccess Dx: Chronic kidney disease (CKD) stage G5/A1, glomerular filtration rate(GFR) less than or equal to 15 mL/min/1.73 square meter and albuminuria creatinine ratioless than 30 mg/g (HCC) [N18.5 (ICD-10-CM)] N18.5 Chronic kidney disease, stage [...] Value Units Left Value Units FINDINGS: Performing Direct Service Professional: Tereza Chaidez RVT, RDMS. Bilateral: Venous Doppler [...] above. Electronically Signed By: Gary Snyder MD [facility] 02/07/2025 8:46:50 PM CDT us Gary Snyder MD IMG US PROCEDURES Final Resul t * (ABNORMAL) [...] Rodriguez MD LAB BLOOD ORDERABLES Final Result [facility]) [address] [facility] Department [place] [address] * Hemoglobin A1c (02/18/2023 1:35 PM CDT) Hgb A1C 4.8 4.0 - 5.6 % [facility] ([facility]) Estimated Average Glucose 91 mg/dL [facility] ([facility]) Comment: The ADA recommends reporting an estimated Average Glucose (eAG) with all Hemoglobin A1c results using the equation derived from a study of 507 normal and diabetic adults. Minority populations were underrepresented and children were not included. (Diabetes Care 31:8209-0567, 2008). The eAG is not equivalent to a fasting glucose. Blood 02/18/2023 1:35 PM CDT 02/18/2023 2:50 PM CDT us Katie Hernandez MD LAB BLOOD ORDERABLES Final R esult [facility] ([facility]) [address] [facility] Department [place] [address] * POCT lipid panel (04/29/2022 2:20 PM [...] Date Diagnosed Date Autogenerated Problem 03/12/[address] [place] [place] [address] OPEN ACCESS [employer] OPEN ACCESS CIGNA OPEN ACCESS Advance Directives For more information, please contact: [phone] * Full Code (Latest Code Status on [...] 5:47 AM 11/16/2022 1:50 PM Care Teams Envelope Sealer Operator Relationship Specialty Start Date End Date Federico Meza MD PCP - General Family Medicine 10/21/21 Matthew Leon DPM [address] [place] [address] Consulting Physician Foot and Ankle Surg 07/16/22
[2025-03-31 12:36] LABS: Total Protein Urine Random 68 mg/dL; Ur Ttl Prot Creatinine Ratio 1.86 mg/mg (0-0.20)
[2025-03-31 12:36] LABS: Albumin Level 3.8 g/dL (3.5-5.1); Anion Gap 13 mmol/L (4-12); Blood Urea Nitrogen 36 mg/dL (7-17); Calcium 8.8 mg/dL (8.4-10.2); Carbon Dioxide 16 mmol/L (22-30); Chloride 109 mmol/L (98-107); Estimated Glomerular Filt Rate 15; Glucose 180 mg/dL (65-110); Potassium 4.3 mmol/L (3.4-5.0); Sodium 138 mmol/L (137-145)
[2025-03-31 12:48] LABS: Parathyroid Intact 236.5 pg/mL (14.5-75.2)
== END 2025-03-31 12:06 | disposition home or self-care (01) ==
LOC: ANHLAB 12:08
PROVIDERS: PCP Family Medicine; Visit Provider Internal Medicine Nephrology
DX: I12.9 Hypertensive chronic kidney disease with stage 1 through stage 4 chronic kidney disease, or unspecified chronic kidney disease (principal); E11.22 Type 2 diabetes mellitus with diabetic chronic kidney disease; N18.5 Chronic kidney disease, stage 5; E55.9 Vitamin D deficiency, unspecified; N25.81 Secondary hyperparathyroidism of renal origin
CPT/HCPCS: 36415; 80069; 82306; 82570; 83970; 84156

== ENCOUNTER 2025-06-21 09:00 | Outpatient (CLI) | payer OTHER, SELFPAY ==
--- OUTSIDE RECORDS SUMMARY | 2025-06-21 09:24 | XMS_ITS | Clinical Summary ---
Author Organization [facility] Address [address] [address] Phone Care Team Providers Care Supervisor Stage Carpentry Name Role Phone Chase Leigh MD Primary [...] Colorectal Cancer Screening 07/07/2020 Influenza Immunization (#1) 2025 SARS-COV-2 Immunization ( season) 2025 Respiratory Syncytial Virus (RSV) Immunization (Adult) [...] (COMPREHENSIVE METABOLIC PANEL) Today 10/28/2015 1:20 PM HARNESS CUTTER Type 2 diabetes mellitus without complication (HCC) HEMOGLOBIN A1C W/ ESTIMATED GLUCOSE Routine 10/28/2015 1:20 PM HARNESS CUTTER Type 2 diabetes mellitus without complication (HCC) HM COLONOSCOPY Routine 05/08/2015 from Last 3 Months or Most Recently Relevant to Health Maintenance Results * HEMOGLOBIN A1C W/ ESTIMATED GLUCOSE (10/28/2015 1:20 PM HARNESS CUTTER) HGB-A1C 6.3 4.4 - 6.4 % 10/28/2015 4:15 PM HARNESS CUTTER [facility] Est Average Glucose 134.1 mg/dL 10/28/2015 4:15 PM HARNESS CUTTER [facility] Blood specimen (specimen) Venipuncture / Unknown 10/28/2015 1:20 PM HARNESS CUTTER 10/28/2015 1:24 PM HARNESS CUTTER Narrative [facility] - 10/28/2015 4:15 PM HARNESS CUTTER HEMOGLOBIN A1C: DIABETIC PATIENTS: WELL-CONTROLLED: 6.2 - 7.0 INTERMEDIATE WELL-CONTROLLED: 7.0 - 9.0 POORLY-CONTROLLED: >9.0 us Mart Harris MD CHEMISTRY ORDERABLES Smita rasmussen Result [facility] [address] [place] [address] * (ABNORMAL) CMP (COMPREHENSIVE METABOLIC PANEL) (10/28/2015 1:20 PM HARNESS CUTTER) Pathologist [facility] [place] SODIUM 138 131 - 143 mmol/L 10/28/2015 4:28 PM HARNESS CUTTER [facility] POTASSIUM 4.0 3.5 - 5.1 mmol/L 10/28/2015 4:28 PM HARNESS CUTTER [facility] CHLORIDE 99(L) 100 - 110 mmol/L 10/28/2015 4:28 PM HARNESS CUTTER [facility] CO2, VENOUS 27 22 - 32 mmol/L 10/28/2015 4:28 PM HARNESS CUTTER [facility] ANION GAP 16.0 8.0 - 20.0 mmol/L 10/28/2015 4:28 PM HARNESS CUTTER [facility] GLUCOSE 117(H) 70 - 105 mg/dL 10/28/2015 4:28 PM [facility] BUN 7(L) 10 - 31 mg/dL 10/28/2015 4:28 PM [facility] CREATININE, BLOOD 0.60 0.60 - 1.30 mg/dL 10/28/2015 4:28 PM [facility] BUN/CREATININE RATIO 12 12 - 20 ratio 10/28/2015 4:28 PM [facility] TOTAL PROTEIN 7.6 6.0 - 8.3 g/dL 10/28/2015 4:28 PM [facility] ALBUMIN 4.4 3.5 - 5.2 g/dL 10/28/2015 4:28 PM [facility] A/G RATIO 1.4 1.0 - 2.0 10/28/2015 4:28 PM [facility] CALCIUM 9.7 8.9 - 10.3 mg/dL 10/28/2015 4:28 PM [facility] T BILI 0.5 0.3 - 1.2 mg/dL 10/28/2015 4:28 PM [facility] SGOT (AST) 25 1 - 32 U/L 10/28/2015 4:28 PM [facility] SGPT (ALT) 19 1 - 33 U/L 10/28/2015 4:28 PM [facility] ALKALINE PHOSPHATASE 98 35 - 105 U/L 10/28/2015 4:28 PM [facility] GFR, EST. NONAFRICAN >60 >=60 10/28/2015 4:28 PM [facility] GFR, EST. >60 >=60 10/28/2015 4:28 PM [facility] Comment: Creatinine Clearance is the preferred criteria for selecting drug dose adjustments in renally impaired patients. The GFR is provided as additional pertinent clinical information. GFR is reported in mL/min/1.73 sq m. Blood specimen (specimen) Venipuncture / Unknown 10/28/2015 1:20 PM HARNESS CUTTER 10/28/2015 1:24 PM HARNESS CUTTER us Mart Harris MD CHEMISTRY ORDERABLES Smita rasmussen Result [facility] [address] [place] [address] * HM COLONOSCOPY (05/08/2015) us Yuan Bates MD PROCEDURE/MINOR SURGICAL ORDERAB LES Final Result from Last 3 Months or Most Recently Relevant to Health Maintenance Insurance MEDICARE C CIGNA Care Teams Supervisor Stage Carpentry Relationship Specialty Start Date End Date Chase Leigh MD [address] [place], [place] [id number] PCP - General Family Medicine 02/03/18
--- OUTSIDE RECORDS SUMMARY | 2025-06-21 09:24 | XMS_ITS | Clinical Summary ---
Author Organization [facility] Jamison Tejeda Address [address] [place] [address] Care Team Providers Care Stationary Engineer Name Role Phone Federico Meza MD Primary Care Provider [phone] Allergies Active Allergy Reactions Criticality Noted Date [...] Encounters Date Type Department Care Team Description 05/01/2025 External Device Data [facility] Provider, Abstract 04/11/2025 External Device Data [facility] Provider, Abstract 04/10/2025 External Device Data [facility] Provider, Abstract [...] Date Smoking Tobacco: Every Day Cigarettes 1 43.7 Started: 09/1981 Alcohol Use Standard Drinks/Week Comments Never 0 (1 standard drink = 0.6 oz pur e alcohol) Comments Unknown Sex and Gender Information Value Date Recorded Sex Assigned at Not on file Legal Sex Female 10:15 AM BIOSTATISTICS TEACHER Gender Identity Not on file Sexual Orientation Not on file Last Filed Vital Signs Vital Sign Reading Time Taken Comments Blood Pressure 132/73 10/25/2024 2:47 PM BIOSTATISTICS TEACHER Pulse 81 10/25/2024 2:47 PM BIOSTATISTICS TEACHER Temperature 36.7 C (98.1 F) 10/25/2024 2:47 PM BIOSTATISTICS TEACHER Respiratory Rate 15 10/25/2024 2:47 PM BIOSTATISTICS TEACHER Oxygen Saturation 94% 10/25/2024 2:47 PM BIOSTATISTICS TEACHER Inhaled Oxygen Concentration - - Weight 88.1 kg (194 lb 3.2 oz) 10/25/2024 2:47 P M BIOSTATISTICS TEACHER Height 172.7 cm (5' 8) 09/22/2024 1:13 PM BIOSTATISTICS TEACHER Body Mass Index 29.53 09/22/2024 1:13 PM BIOSTATISTICS TEACHER Plan of Treatment Health Maintenance Due Date [...] (2 - Td or Tdap) 10/19/2028 Insurance [facility] C20 Care Teams Stationary Engineer Relationship Specialty Start Date End Date Federico Meza MD [address] [place] [id number] PCP - General Family Practice 09/12/24
--- OUTSIDE RECORDS SUMMARY | 2025-06-21 09:24 | XMS_ITS | Patient Health Record ---
Author Organization [facility] [id number] Address [address] [place] [address] Care Team Providers Care Metal Turner Name Role Phone Susana VILLALTA, Federico Primary Care Provider Gary Rojas Unavailable [phone] Allergies Allergen (clinical drug ingredient) Drug/Non Drug Allergy documented on EMR Reaction Allergy Type Onset Date Status povidone-iodine Betadine Unknown Drug Allergy 12/02/2023 Active ceftriaxone Ceftriaxone Unknown Drug Allergy 12/02/2023 Ac tive Reason For Referral No Information Medications Medication SIG (Take, Route, Frequency, Duration) Notes Start Date End Date Status FREESTYLE KAITLIN 2 SENSOR KIT *Reorder from [employer] for eRx and Interaction Alerts* 12/02/2023 Active HUMALOG KWIKPEN U-200 200 unit/mL (3 mL) Solution Pen-injector Subcutaneous *Reorder from [employer] [facility] for eRx and Interaction Alerts* 12/02/2023 Active OneTouch Ultra Strip In Vitro 12/02/2023 Active PEN NEEDLE 31 gauge x 1/4 NEEDLE, DISPOSABLE MISCELLANEOUS *Reorder from [employer] for eRx and Interaction Alerts* 12/02/2023 Active Atorvastatin Calcium 10 MG Tablet Oral 12/02/2023 Active ProAir HFA 108 (90 Base) MCG/ACT Aerosol Solution Inhalation 12/02/2023 Active ULTRA-FINE MICRO PEN NEEDLE 32 gauge x 1/4 NEEDLE, DISPOSABLE MISCELLANEOUS *Reorder from [employer] for eRx and Interaction Alerts* 12/02/2023 Active Gabapentin 300 MG Capsule Oral 12/02/2023 Active Dexcom G7 [employer] 12/02/2023 Active hydrALAZINE HCl 25 MG Tablet Oral 12/02/2023 Active Ondansetron HCl 4 MG Tablet Oral 12/02/2023 Active Sertraline HCl 100 MG Tablet 1 tablet Oral Once a day; Duration: 30 days Active DEXCOM G7 SENSOR DEVICE *Reorder from [employer] for eRx and Interaction Alerts* 12/02/2023 Active traZODone HCl 150 MG Tablet 1 tablet at bedtime Oral Once a day; Duration: 30 days As needed Active PEN NEEDLE, DIABETIC 31 GAUGE X 15/64 *Reorder from [employer] [facility] for eRx and Interaction Alerts* 12/02/2023 Active buPROPion HCl ER (XL) 300 MG Tablet Extended Release 24 Hour 1 tablet in the morning Oral Once a day; Duration: 30 days Active TRUEPLUS PEN NEEDLE 31 gauge x 5/16 NEEDLE, DISPOSABLE MISCELLANEOUS *Reorder from [employer] [facility] for eRx and Interaction Alerts* 12/02/2023 Active Rexulti 2 mg Tablet 1 tablet Oral once a day; Duration: 30 days Active BAQSIMI 3 MG/ACTUATION NASAL SPRAY *Reorder from [employer] for eRx and Interaction Alerts* 12/02/2023 Active Immunizations Vaccine Route Administration Date Status Comme nts Td (adult), adsorbed Unknown 09/27/2007 Administered Tdap Unknown 10/19/2018 Administered Social History Tobacco Use: Social History Observation Description Date Details (start date - stop date) Never Smoker NA - NA Sex Assigned At : Social History Observation Description Sex Assigned At Female Social History Miscellaneous: Social Info Question Answer Notes Advance Care Planning Are you your own decision-maker No Do you have Power of Combat Control for Health or [facility]? No Tobacco Use: Social Info Question Answer Notes Tobacco Control (Standard) Tobacco use: Nonsmoker Additional Details Category Social Info Options Details Migrated Social History Migrated Social History Alcohol Intake: None 07/08/2018,Tobacco Years: Current every day smoker 05/04/2019 Problems Problem Type SNOMED Code ICD Code Onset Dates Problem Status W/U Status Risk Notes Problem Severe recurrent major depression without psychotic features (71911148) Major depressive disorder, recurrent severe without psychotic features (F33.2) 3 Active confirmed Problem Generalized anxiety disorder (08583771) Generalized anxiety disorder (F41.1) 4 Active confirmed Problem Insomnia (358926271) Other insomnia (G47.09) 4 Active confirmed Problem Chronic kidney disease stage 4 (519909673) Chronic kidney disease, stage 4 (severe) (N18.4) 4 Active confirmed Problem Tobacco user (539223758) Nicotine dependence with current use (F17.200) Active confirmed Vital Signs Heart Rate 80 /min 05/14/2025 Height-cm 172.72 cm 05/14/2025 Blood pressure diastolic 72 mm Hg 05/14/2025 Weight-kg 84.82 kg 05/14/2025 Height 68.00 in 05/14/2025 Blood pressure systolic 157 mm Hg 05/14/2025 Weight 187 lbs 05/14/2025 BMI 28.43 kg/m2 05/14/2025 Encounters Encounter Location Date Provider Diagnosis [facility] [address] [address] 08/10/2024 Gary Dominguez Major depressive disorder, recurrent severe without psychotic features F33.2 ; Generalized anxiety disorder F41.1 ; Other insomnia G47.09 ; Chronic kidney disease, stage 4 (severe) N18.4 ; Hypokalemia E87.6 and Nicotine dependence with current use F17.200 [facility] [address] [address] 11/13/2024 Gary Dominguez Benign essential HTN I10 ; Major depressive disorder, recurrent severe without psychotic features F33.2 ; Generalized anxiety disorder F41.1 ; Other insomnia G47.09 ; Chronic kidney disease, stage 4 (severe) N18.4 ; Hypokalemia E87.6 and Nicotine dependence with current use F17.200 [facility] [address] [address] 02/05/2025 Gary Dominguez Encounter for screen ing for depression Z13.31 [...] and Nicotine dependence with current use F17.200 [facility] [employer] [address] [place] [address] 05/14/2025 Gary Dominguez Major depressive disorder, recurrent severe [...] process to increase the likelihood of success. 11/13/2024 Benign essential HTN (ICD-10 - I10) 02/05/2025 Encounter for screening for depression (ICD-10 - Z13.31) 05/14/2025 Major depressive disorder, recurrent severe without psychotic features (ICD-10 - F33.2) recommend counseling cont bupropion er 300mg, rexulti 2mg daily, sertraline 100mg daily max dose rexulti is 2mg with kidney disease severe no dose adjustment of Sertraline or Trazodone needed monitor bupropion xl-may have increased serum level 05/14/2025 Generalized anxiety disorder (ICD-10 - F41.1) 05/14/2025 Other insomnia (ICD-10 - G47.09) cont trazodone 150mg hs 02/05/2025 Nicotine use (ICD-10 - Z72.0) 08/10/2024 Other insomnia (ICD-10 - G47.09) cont [...] process to increase the likelihood of success. 11/13/2024 Major depressive disorder, recurrent severe without psychotic features (ICD-10 - F33.2) recommend counseling cont bupropion er 300mg, rexulti 2mg daily, sertraline 100mg daily 11/13/2024 Generalized anxiety disorder (ICD-10 - F41.1) 08/10/2024 Chronic kidney disease, stage 4 (severe) [...] process to increase the likelihood of success. 05/14/2025 Chronic kidney disease, stage 4 (severe) (ICD-10 - N18.4) reports she will be starting dialysis 02/05/2025 Encounter for screening for cardiovascular disorders (ICD-10 - Z13.6) 02/05/2025 Dietary counseling and surveillance (ICD-10 - Z71.3) 11/13/2024 Other insomnia (ICD-10 - G47.09) cont trazodone 150mg hs 08/10/2024 Hypokalemia (ICD-10 - E87.6) 1. Depression: [...] process to increase the likelihood of success. 05/14/2025 Hypokalemia (ICD-10 - E87.6) 11/13/2024 Chronic kidney disease, stage 4 (severe) (ICD-10 - N18.4) 08/10/2024 Nicotine dependence with current use (ICD-10 [...] process to increase the likelihood of success. 05/14/2025 Nicotine dependence with current use (ICD-10 - F17.200) Quit smoking 7 days ago CONGRATULATIONS! !!!! You quit smoking. 02/05/2025 Benign essential HTN (ICD-10 - I10) 02/05/2025 Major depressive disorder, recurrent severe without psychotic features (ICD-10 - F33.2) recommend counseling cont bupropion er 300mg, rexulti 2mg daily, sertraline 100mg daily 11/13/2024 Hypokalemia (ICD-10 - E87.6) 11/13/2024 Nicotine dependence with current use (ICD-10 - F17.200) smokes about 1 ppd cigarettes, Stopping Smokeless Tobacco Use: Care Instructions material was published, Learning About Benefits of Quitting Smoking material was published, Deciding About Using Medicines To Quit Smoking material was published, Quitting Tobacco: Care Instructions material was published 02/05/2025 Generalized anxiety disorder (ICD-10 - F41.1) 02/05/2025 Other insomnia (ICD-10 - G47.09) cont [...] efforts have been made to correct them. 05/14/2025 Ajit Hernandez, a patient with stage 5 kidney failure, presents with concerns about impending dialysis and transplant evaluation, reporting fatigue, sinus issues, and recent smoking cessation. Stage 5 Kidney Failure Assessment: Patient is in stage 5 kidney failure and is currently being evaluated for dialysis and kidney transplant. She has quit smoking 7 days ago in preparation for transplant evaluation. The patient expresses a preference for peritoneal dialysis at home due to previous abdominal surgeries resulting in hernias. She reports fatigue, which is likely due to the accumulation of toxins from kidney failure. The patient is urinating frequently but not effectively clearing toxins. Plan: - Continue evaluation for kidney transplant - Assess patient's suitability for peritoneal dialysis at home - Educate patient on potential fatigue post-dialysis and the adjustment period - Monitor for symptoms of uremia and dialysis necessity - Continue to encourage smoking cessation Fatigue Assessment: Patient reports significant fatigue, likely multifactorial due to kidney failure, uremia, and possibly sleep disturbances. She mentions dozing off at unusual times. Plan: - Anticipate improvement in energy levels once dialysis is initiated and toxins are cleared - Monitor sleep patterns and daytime drowsiness the note is transcribed using speech recognition software. It is a reflection of a visit with the patient. It might have some inaccuracy, including medication names and transcribing errors, though efforts have been made to correct them. Plan Of Treatment Next Appt Details Provider Name:Gray rushing, 08/14/2025 11:45:00 AM, [address], [facility] [address], [place], [address], Insurance Providers Payer Name Payer Address Payer Phone Subscriber Number Group Number Insured Name Patient Relationship to Insured Coverage Start Date Coverage End Date [facility] [address] [place] [address] [id number] HERNANDEZ, MARISELA Spouse - patient is the spouse of [...] was hospitalized on March 24, 2024, at [facility] under the care of Dr. Julisa Sen. The patient was diagnosed with acute renal failure, dehydration, diarrhea of presumed infectious origin, hypokalemia, metabolic acidosis, and urinary tract infection with pyuria. The patient also had several home care visits and follow-ups with [facility] and [facility]. On February 16, 2024, the patient visited the emergency department at [facility], where Dr. Ana Luisa Luevano identified chronic kidney disease, coronary artery calcification, obstipation, pyuria, rectal pain, and urinary retention. The patient also had office visits at [facility] with Dr. Lalit Chavez and Dr. Leandro Schumacher, where chronic anemia was noted. The patient's data was also regularly monitored through an external device by Provider Abstract at [facility]. Surgical History Surgery Date(Month/Year) Any surgical history Breast surgery () Other
[2025-06-21 10:06] LABS: Albumin Level 4.0 g/dL (3.5-5.1); Anion Gap 12 mmol/L (4-12); Blood Urea Nitrogen 34 mg/dL (7-17); Calcium 8.7 mg/dL (8.4-10.2); Carbon Dioxide 14 mmol/L (22-30); Chloride 113 mmol/L (98-107); Estimated Glomerular Filt Rate 14; Glucose 111 mg/dL (65-110); Potassium 5.1 mmol/L (3.4-5.0); Sodium 139 mmol/L (137-145)
== END 2025-06-21 09:01 | disposition home or self-care (01) ==
LOC: ANHLAB 09:01
PROVIDERS: PCP Family Medicine; Visit Provider Internal Medicine Nephrology
DX: N18.5 Chronic kidney disease, stage 5 (principal)
CPT/HCPCS: 36415; 80069

== ENCOUNTER 2025-07-20 12:11 | Outpatient (CLI) | payer OTHER, SELFPAY ==
[2025-07-20 13:06] LABS: Hematocrit 29.5 % (37.0-47.0); Hemoglobin 9.3 g/dL (12.0-15.0); Immature Granulocyte Percent A 1.0 % (0-0.5); Lymphocytes Absolute Auto 2.02 K/mm3 (0.9-3.2); Mean Corpuscular HGB Conc 31.5 g/dl (32-36); Mean Corpuscular Hemoglobin 32.2 pg (26-34); Mean Corpuscular Volume 102.1 fl (80-100); Nucleated Red Blood Cells Absolute Auto 0.000 K/mm3 (0.0-0.012); Nucleated Red Blood Cells Perc 0.0 % (0.0-0.2); Platelet Count Result 112 k/mm3 (150-375); Red Blood Count 2.89 M/mm3 (4.2-5.4); White Blood Count 13.5 K/mm3 (4.5-10.0)
[2025-07-20 14:12] LABS: Blood Urea Nitrogen 39 mg/dL (7-17); Calcium 8.1 mg/dL (8.4-10.2); Carbon Dioxide < 5 mmol/L (22-30); Chloride 114 mmol/L (98-107); Estimated Glomerular Filt Rate 7; Glucose 128 mg/dL (65-110); Sodium 134 mmol/L (137-145)
[2025-07-20 14:13] LABS: Potassium 2.8 mmol/L (3.4-5.0)
== END 2025-07-20 12:12 | disposition home or self-care (01) ==
LOC: ANHLAB 12:13
PROVIDERS: PCP Family Medicine; Visit Provider Physician Assistant Medical
DX: M62.838 Other muscle spasm (principal); I10 Essential (primary) hypertension
CPT/HCPCS: 36415; 80048; 85025

== ENCOUNTER 2025-07-24 12:15 | Outpatient (CLI) | payer OTHER, SELFPAY ==
[2025-07-24 13:01] LABS: Blood Urea Nitrogen 37 mg/dL (7-17); Calcium 8.6 mg/dL (8.4-10.2); Carbon Dioxide < 5 mmol/L (22-30); Chloride 117 mmol/L (98-107); Estimated Glomerular Filt Rate 7; Glucose 105 mg/dL (65-110); Potassium 4.0 mmol/L (3.4-5.0); Sodium 137 mmol/L (137-145)
--- OUTSIDE RECORDS SUMMARY | 2025-07-24 14:03 | XMS_ITS | Clinical Summary ---
Author Organization [facility] Address [address] [address] Phone Care Team Providers Care Refrigerator Repairman Name Role Phone Chase Leigh MD Primary [...] (COMPREHENSIVE METABOLIC PANEL) Today 10/28/2015 1:20 PM STATOR TESTER Type 2 diabetes mellitus without complication (HCC) HEMOGLOBIN A1C W/ ESTIMATED GLUCOSE Routine 10/28/2015 1:20 PM STATOR TESTER Type 2 diabetes mellitus without complication (HCC) HM COLONOSCOPY Routine 05/08/2015 from Last 3 Months or Most Recently Relevant to Health Maintenance Results * HEMOGLOBIN A1C W/ ESTIMATED GLUCOSE (10/28/2015 1:20 PM STATOR TESTER) HGB-A1C 6.3 4.4 - 6.4 % 10/28/2015 4:15 PM STATOR TESTER [facility] Est Average Glucose 134.1 mg/dL 10/28/2015 4:15 PM STATOR TESTER [facility] Blood specimen (specimen) Venipuncture / Unknown 10/28/2015 1:20 PM STATOR TESTER 10/28/2015 1:24 PM STATOR TESTER Narrative [facility] - 10/28/2015 4:15 PM STATOR TESTER HEMOGLOBIN A1C: DIABETIC PATIENTS: WELL-CONTROLLED: 6.2 - 7.0 INTERMEDIATE WELL-CONTROLLED: 7.0 - 9.0 POORLY-CONTROLLED: >9.0 us Mart Harris MD CHEMISTRY ORDERABLES Smita rasmussen Result [facility] [address] [place] [address] * (ABNORMAL) CMP (COMPREHENSIVE METABOLIC PANEL) (10/28/2015 1:20 PM STATOR TESTER) Pathologist [facility] SODIUM 138 131 - 143 mmol/L 10/28/2015 4:28 PM STATOR TESTER [facility] POTASSIUM 4.0 3.5 - 5.1 mmol/L 10/28/2015 4:28 PM STATOR TESTER [facility] CHLORIDE 99(L) 100 - 110 mmol/L 10/28/2015 4:28 PM STATOR TESTER [facility] CO2, VENOUS 27 22 - 32 mmol/L 10/28/2015 4:28 PM STATOR TESTER [facility] ANION GAP 16.0 8.0 - 20.0 mmol/L 10/28/2015 4:28 PM STATOR TESTER [facility] GLUCOSE 117(H) 70 - 105 mg/dL 10/28/2015 4:28 PM [facility] BUN 7(L) 10 - 31 mg/dL 10/28/2015 4:28 PM [facility] CREATININE, BLOOD 0.60 0.60 - 1.30 mg/dL 10/28/2015 4:28 PM [facility] BUN/CREATININE RATIO 12 12 - 20 ratio 10/28/2015 4:28 PM [facility] TOTAL PROTEIN 7.6 6.0 - 8.3 g/dL 10/28/2015 4:28 PM [facility] ALBUMIN 4.4 3.5 - 5.2 g/dL 10/28/2015 4:28 PM [facility] A/G RATIO 1.4 1.0 - 2.0 10/28/2015 4:28 PM [facility] CALCIUM 9.7 8.9 - 10.3 mg/dL 10/28/2015 4:28 PM [facility] T BILI 0.5 0.3 - 1.2 mg/dL 10/28/2015 4:28 PM [facility] SGOT (AST) 25 1 - 32 U/L 10/28/2015 4:28 PM [facility] SGPT (ALT) 19 1 - 33 U/L 10/28/2015 4:28 PM [facility] ALKALINE PHOSPHATASE 98 35 - 105 U/L 10/28/2015 4:28 PM [facility] GFR, EST. NONAFRICAN >60 >=60 10/28/2015 4:28 PM [facility] GFR, EST. >60 >=60 10/28/2015 4:28 PM [facility] Comment: Creatinine Clearance is the preferred criteria for selecting drug dose adjustments in renally impaired patients. The GFR is provided as additional pertinent clinical information. GFR is reported in mL/min/1.73 sq m. Blood specimen (specimen) Venipuncture / Unknown 10/28/2015 1:20 PM STATOR TESTER 10/28/2015 1:24 PM STATOR TESTER us Mart Harris MD CHEMISTRY ORDERABLES Smita rasmussen Result [facility] [address] [place] [address] * HM COLONOSCOPY (05/08/2015) us Yuan Bates MD PROCEDURE/MINOR SURGICAL ORDERAB LES Final Result from Last 3 Months or Most Recently Relevant to Health Maintenance Insurance MEDICARE C [employer] Care Teams Refrigerator Repairman Relationship Specialty Start Date End Date Chase Leigh MD [address] [place], [place] [id number] PCP - General Family Medicine 02/03/18
--- OUTSIDE RECORDS SUMMARY | 2025-07-24 14:04 | XMS_ITS | Clinical Summary ---
Author Organization [facility] [employer] Address [address] [place] [address] Care Team Providers Care Candy Waffle Assembler Name Role Phone Federico Meza MD Primary Care Provider [phone] Allergies Active Allergy Reactions Criticality Noted Date [...] Date Smoking Tobacco: Every Day Cigarettes 1 43.8 Started: 09/1981 Alcohol Use Standard Drinks/Week Comments Never 0 (1 standard drink = 0.6 oz pur e alcohol) Comments Unknown Sex and Gender Information Value Date Recorded Sex Assigned at Not on file Legal Sex Female 10:15 AM TRIMMING MACHINE OPERATOR Gender Identity Not on file Sexual Orientation Not on file Last Filed Vital Signs Vital Sign Reading Time Taken Comments Blood Pressure 132/73 10/25/2024 2:47 PM TRIMMING MACHINE OPERATOR Pulse 81 10/25/2024 2:47 PM TRIMMING MACHINE OPERATOR Temperature 36.7 C (98.1 F) 10/25/2024 2:47 PM TRIMMING MACHINE OPERATOR Respiratory Rate 15 10/25/2024 2:47 PM TRIMMING MACHINE OPERATOR Oxygen Saturation 94% 10/25/2024 2:47 PM TRIMMING MACHINE OPERATOR Inhaled Oxygen Concentration - - Weight 88.1 kg (194 lb 3.2 oz) 10/25/2024 2:47 P M TRIMMING MACHINE OPERATOR Height 172.7 cm (5' 8) 09/22/2024 1:13 PM TRIMMING MACHINE OPERATOR Body Mass Index 29.53 09/22/2024 1:13 PM TRIMMING MACHINE OPERATOR Plan of Treatment Health Maintenance Due Date [...] (2 - Td or Tdap) 10/19/2028 Insurance [employer] C20 Care Teams Candy Waffle Assembler Relationship Specialty Start Date End Date Federico Meza MD [address] [place] [address] PCP - General Family Practice 09/12/24
--- OUTSIDE RECORDS SUMMARY | 2025-07-24 14:04 | XMS_ITS | Encounter Summary ---
Author Organization [facility] Healthcare Address [address] [place] [address] Care Team Providers Care Supervisory Forester Name Role Phone Federico Meza MD Primary Care Provider + [phone] Matthew Leon DPM Unavailable [phone] Encounter Details Date Type Department Care Team (Late st Contact Info) Description 11/17/2022 Telephone [facility] Physical Medicine and Rehabilitation [address] [place] [address] Flavia Freeman, ON AIR TALENT Social History Tobacco Use Types Packs/Day Years Used Date Smoking Tobacco: Every Day Cigarettes Social Connection and Isolation Panel Answer Date Recorded In a typical week, how many times do you talk on the phone with family, friends, or neighbors? Three times a week 11/19/2022 How often do you get togethe r with friends or relatives? Twice a week 11/19/2022 How often do you attend chur or hoahaoism services? Never 11/19/2022 Do you belong to any clubs o r organizations such as adventism groups, unions, fraternal or athletic groups, or [...] staff should administer the PHQ-9) 2 11/19/2022 [facility] Occup[facility] ional [facility] - Occupational Stress [...] place to sleep or slept in a custodial (including now)? No 11/19/2022 Education Answer Date Recorded What is the highest level of school you have completed or the highest degree you have received? 11th grade 11/03/2022 Comments No Sex and Gender Information Value Date Recorded Sex Assigned at Not on file Legal Sex Female 12:23 PM COIL CONNECTOR REPAIRER Gender Identity Not on file Sexual Orientation Not on file documented as of this encounter Last Filed Vital Signs Vital Sign Reading Time Taken Comments Blood Pressure - - Pulse - - Temperature - - Respiratory Rate - - Oxygen Saturation - - Inhaled Oxygen Concentration - - Weight 80.7 kg (178 lb) 11/17/2022 1:21 PM COIL CONNECTOR REPAIRER Height 172.7 cm (5' 8) 11/17/2022 1:21 PM COIL CONNECTOR REPAIRER Body Mass Index 27.06 11/17/2022 1:21 PM COIL CONNECTOR REPAIRER documented in this encounter Functional Status * AUDIT-C Score Answer Date of Assessment Author 0 [...] 11/19/2022 12:51 PM Radha Aponte MSW * How difficult have these problems made it for you to do your work, take care of things at home, or get along with other people? Answer Date of Assessment Author Not difficult at all 11/19/2022 12:51 PM Radha Falcon MSW * Over the past 2 weeks, [...] too much Several days 11/19/2022 12:51 PM Radha Aponte MSW Feeling tired or having little energy Several days 11/19/2022 12:51 PM COIL CONNECTOR REPAIRER Radha Kwan MSW Poor appetite or overeating Not at all 11/19/2022 12 :51 PM Radha Aponte MSW Feeling bad about yourself - or that you are a failure or have let yourself or your family down Not at all 11/19/2022 12:51 PM Radha Aponte MSW Trouble concentrating on things, such as reading the newspaper or watching television Not at all 11/19/2022 12:51 PM Radha Aponte, LOOM FIXER SUPERVISOR Moving or speaking so slowly that other [...] Flavia Freeman SLP - 11/17/2022 1:52 PM COIL CONNECTOR REPAIRER [facility] Physical Medicine and Rehabilitation Preadmission Screening Reason [...] level of care. Patient is currently at [facility] . The patient is being referred [...] rehabilitation risks and benefits. Payor Source: Primary: [employer] Secondary:Authorization number [id number] Case discussed with Dr. Betancourt on 11/13/22 [...] back pain COPD (chronic obstructive pulmonary disease) (CMS/HCC) (HCC) Depression Diabetes mellitus (HCC) DEJESUS (dyspnea [...] Drinking: Not on file Patient's Preferred Language: Swazi Cultural Requests During Hospitalization: none conveyed Acute [...] Acute osteomyelitis of right ankle or foot ([facility]/HCC) ([facility]) Type 2 diabetes mellitus with hypoglycemia, without long-term current use of insulin ([facility]) ([facility]) C. difficile colitis Peripheral arterial disease ([facility]) ([facility]) Primary hypertension Polyneuropathy associated with underlying disease ([facility]) ([facility]) Anxiety and depression Chronic renal failure, stage 4 (severe) ([facility]) ([facility]) Cellulitis of right lower extremity Acute on chronic anemia Hyperkalemia COPD (chronic obstructive pulmonary disease) ([facility]/HCC) ([facility]) Resolved Problems: No resolved hospital problems. -Acute [...] hypoglycemia, without long-term current use of insulin ([facility]) ([facility]) Replace home linagliptin with SSI for now, can start basal/bolus regimen if glucose is persistentlyelevated. Past Medical History: ?? Abdominal distention ?? Arrhythmia ?? Bipolar disorder, unspecified ([facility]) ?? Chronic back pain ?? COPD (chronic obstructive pulmonary disease) ([facility]/HCC) ([facility]) ?? Depression ?? Diabetes mellitus ([facility]) ?? DEJESUS (dyspnea on exertion) ?? Foot [...] Worsening right ankle right foot wounds. HPI: Jeanette Peres is a 57 y.o. female past [...] and had lots of questions. Reports the correctional substance abuse counselor told him about a bone biopsy to [...] Current Attempt with Plan AND intent [facility] ER-based Safety Assessment: Risk Factors Stressors: Recent right leg amputation. Attempts/Self-injury: No Impulsivity:No Drug/Alcohol History:No Trauma History:No Access to firearms:No HI/Violence/Property destruction:No Legal: No Family Psych History:No Family History of suicide:No Protective Factors: Can handle stress well? Yes Scientologist? Yes External: Social supports/ Therapeutic relationships: Yes [...] mild or moderate severity, unspecified CPT Codes: 82748 - Psychiatric Diagnostic Evaluation with Medical Services [...] the hospital?: No Discussed plan with onsite security team lead: Yes Who Ben Gore [facility] 11/14/22: Nephrology Stable renal function and electrolytes. [...] In /Aug when pt was at the [facility] patient had elevations in creatinine up to [...] hypoglycemia, without long-term current use of insulin ([facility]) ([facility]) Continue Lantus 10 units qhs and lispro [...] sporadically with or without food. Emesis is nonbloodyand nonbilious. EGD from 06/2019 showed erosive gastritis [...] Precautions/Restrictions: Falls Weight Bearing Precautions: NWB RLE [place] Suicide Severity Rating Scale: Allergies: Allergies Allergen [...] Shruthi Willis MD 650 mg at 11/13/22 2257 amLODIPine (NORVASC) tablet 10 mg 10 mg [...] Min PRN Shruthi Willis MD 1,000 mL/hrat 11/06/2238 250 mL at 11/06/22 06 enoxaparin (LOVENOX) syringe 30 mg 30 mg [...] mg/mL (33.3 mg/mL as elemental magnesium) oral [id number] mL 30 mL oral Daily PRN Shruthi [...] flush 0.5-20 mL 0.5-20 mL intra-catheter Q8H [facility] Shruthi Willis MD 10 mLat 11/17/22 0550 sodium chloride 0.9% flush 0.5-20 mL 0.5-20 mL intra-catheter PRN Shruthi Willis MD traZODone (DESYREL) tablet 150 mg 150 mg oral Nightly PRN Shruthi Willis MD 150 mg at 11/16/22 2203 [DISCONTINUED] benzocaine (HURRICAINE) 20 % mouth spray mouth/throat PRN Samuel, Sadie M., PRECINCT POLICE CAPTAIN 1 spray at 11/16/22 1555 [DISCONTINUED] lidocaine (XYLOCAINE) 20 mg/mL (2 %) preservative free injection intravenous PRN Samuel, Sadie M., [employer] POL[employer] CAPTAIN 100 mg at 11/16/22 1557 [DISCONTINUED] propofoL (DIPRIVAN) 10 mg/mL IV intravenous PRN Samuel, Sadie M., [employer]CIN[employer] POLICE CAPTAIN 20 mg at 11/16/22 1600 [DISCONTINUED] sodium chloride 0.9% flush 5-10 mL 5-10 mL intra-catheter Q12H [facility] Shruthi Willis MD 10 mL at 11/16/22 [...] transfers MIN-MOD A (11/17/2022 1:37 PM) Cognition/Communication/Swallowing: ON AIR TALENT Cognition: wfl (11/17/2022 1:37 PM) ON AIR TALENT Communication: wfl (11/17/2022 1:37 PM) Conditions requiring acute rehab and risk for complications: Gait dysfunction - risk for falls and further injury, fracture Diabetes - risk for hypoglycemic episodes Uncontrolled Hypertension - risk for stroke, stroke extension, [place] Decreased mobility - Risk for Fall, skin [...] highest level of functional independence Cosigned by Rubi Betancourt MD at 11/17/2022 2:17 PM COIL CONNECTOR REPAIRER CONNECTOR REPAIRER CONNECTOR REPAIRER Associated attestation - Rubi Betancourt MD - 11/17/2022 2:17 PM COIL CONNECTOR REPAIRER Rehab Referral Decision: Approved I have reviewed [...] the intensive Inpatient rehabilitation program offered at [facility] . documented in this encounter Plan of Treatment Not on file documented as of this encounter Visit Diagnoses Not on filedocumented in this encounter Additional Health Concerns Infection Onset Date Last Indicated Resolved Time MRSA 07/03/2022 02/18/2023 08/17/2023 3:05 AM COIL CONNECTOR REPAIRER C. difficile Comment:Flag applied in error. 11/23/2022 11/23/2022 1:59 PM CDT C. difficile suspected 03/24/2024 03/24/202403/24 11:04 PM CDT C. difficile 03/24/2024 03/24/2024 03/24/2025 7:26 PM CDT documented as of this encounter Care Teams Supervisory Forester Relationship Specialty Start Date End Date Federico Meza MD PCP - General Family Medicine 10/21/21 Matthew Leon DPM [address] [place] [address] Consulting Physician Foot and Ankle Surg 07/16/22 documented as of this encounter
--- OUTSIDE RECORDS SUMMARY | 2025-07-24 14:04 | XMS_ITS | Patient Health Record ---
Author Organization [facility] Address [address] [place] [address] Care Team Providers Care Help Desk Rep Name Role Phone Susana VILLALTA, Federico Primary Care Provider Gary Rojas Unavailable [phone] Allergies Allergen (clinical drug ingredient) Drug/Non Drug Allergy documented on EMR Reaction Allergy Type Onset Date Status povidone-iodine Betadine Unknown Drug Allergy 12/02/2023 Active ceftriaxone Ceftriaxone Unknown Drug Allergy 12/02/2023 Ac tive Reason For Referral No Information Medications Medication SIG (Take, Route, Frequency, Duration) Notes Start Date End Date Status FREESTYLE KAITLIN 2 SENSOR KIT *Reorder from [employer] for eRx and Interaction Alerts* 12/02/2023 Active HUMALOG KWIKPEN U-200 200 unit/mL (3 mL) Solution Pen-injector Subcutaneous *Reorder from [employer] for eRx and Interaction Alerts* 12/02/2023 Active OneTouch Ultra Strip In Vitro 12/02/2023 Active PEN NEEDLE 31 gauge x 1/4 NEEDLE, DISPOSABLE MISCELLANEOUS *Reorder from [employer] for eRx and Interaction Alerts* 12/02/2023 Active Atorvastatin Calcium 10 MG Tablet Oral 12/02/2023 Active ProAir HFA 108 (90 Base) MCG/ACT Aerosol Solution Inhalation 12/02/2023 Active ULTRA-FINE MICRO PEN NEEDLE 32 gauge x 1/4 NEEDLE, DISPOSABLE MISCELLANEOUS *Reorder from [employer] for eRx and Interaction Alerts* 12/02/2023 Active Gabapentin 300 MG Capsule Oral 12/02/2023 Active Dexcom G7 Fusion Juncture Grinder 12/02/2023 Active hydrALAZINE HCl 25 MG Tablet Oral 12/02/2023 Active Ondansetron HCl 4 MG Tablet Oral 12/02/2023 Active Sertraline HCl 100 MG Tablet 1 tablet Oral Once a day; Duration: 30 days Active DEXCOM G7 SENSOR DEVICE *Reorder from [employer] for eRx and Interaction Alerts* 12/02/2023 Active traZODone HCl 150 MG Tablet 1 tablet at bedtime Oral Once a day; Duration: 30 days As needed Active PEN NEEDLE, DIABETIC 31 GAUGE X 15/64 *Reorder from [employer] for eRx and Interaction Alerts* 12/02/2023 Active buPROPion HCl ER (XL) 300 MG Tablet Extended Release 24 Hour 1 tablet in the morning Oral Once a day; Duration: 30 days Active TRUEPLUS PEN NEEDLE 31 gauge x 5/16 NEEDLE, DISPOSABLE MISCELLANEOUS *Reorder from [employer] for eRx and Interaction Alerts* 12/02/2023 Active Rexulti 2 mg Tablet 1 tablet Oral once a day; Duration: 30 days Active BAQSIMI 3 MG/ACTUATION NASAL SPRAY *Reorder from [employer] for eRx and Interaction Alerts* 12/02/2023 Active [...] decision-maker No Do you have Power of Gallery Or Museum Technician for Health or [facility]? No Tobacco Use: Social Info Question Answer Notes Tobacco Control (Standard) Tobacco use: Nonsmoker Additional Details Category Social Info Options Details Migrated Social History Migrated Social History Alcohol Intake: None 07/08/2018,Tobacco Years: Current every day smoker 05/04/2019 Problems Problem Type SNOMED Code ICD Code Onset Dates Problem Status W/U Status Risk Notes Problem Severe recurrent major depression without psychotic features (81395430) Major depressive disorder, recurrent severe without psychotic features (F33.2) 3 Active confirmed Problem Generalized anxiety disorder (04657550) Generalized anxiety disorder (F41.1) 4 Active confirmed Problem Insomnia (217271882) Other insomnia (G47.09) 4 Active confirmed Problem Chronic kidney disease stage 4 (743045889) Chronic kidney disease, stage 4 (severe) (N18.4) 4 Active confirmed Problem Tobacco user (020882981) Nicotine dependence with current use (F17.200) Active confirmed Vital Signs Heart Rate 80 /min 05/14/2025 Height-cm 172.72 cm 05/14/2025 Blood pressure diastolic 72 mm Hg 05/14/2025 Weight-kg 84.82 kg 05/14/2025 Height 68.00 in 05/14/2025 Blood pressure systolic 157 mm Hg 05/14/2025 Weight 187 lbs 05/14/2025 BMI 28.43 kg/m2 05/14/2025 Encounters Encounter Location Date Provider Diagnosis [facility] [address] [address] 08/10/2024 Gary Dominguez Major depressive disorder, recurrent severe without psychotic features F33.2 ; Generalized anxiety disorder F41.1 ; Other insomnia G47.09 ; Chronic kidney disease, stage 4 (severe) N18.4 ; Hypokalemia E87.6 and Nicotine dependence with current use F17.200 [facility] [address] [address] 11/13/2024 Gary Dominguez Benign essential HTN I10 ; Major depressive disorder, recurrent severe without psychotic features F33.2 ; Generalized anxiety disorder F41.1 ; Other insomnia G47.09 ; Chronic kidney disease, stage 4 (severe) N18.4 ; Hypokalemia E87.6 and Nicotine dependence with current use F17.200 [facility] [address] [address] 02/05/2025 Gary Dominguez Encounter for screen ing [...] and Nicotine dependence with current use F17.200 [facility] [address] [place] [address] 05/14/2025 Gary Dominguez Major depressive disorder, recurrent [...] Treatment Next Appt Details Provider Name:Gary rushing, 08/14/2025 11:45:00 AM, [address], [facility] [address], [place], [address], Insurance Providers Payer Name Payer Address Payer Phone Subscriber Number Group Number Insured Name Patient Relationship to Insured Coverage Start Date Coverage End Date [facility] [address] [place] [address] [id number] HERNANDEZ, MARISELA Spouse - patient is the [...] on March 24, 2024, at [facility] under the care of Dr. Julisa Sen. The patient was diagnosed with acute renal failure, dehydration, diarrhea of presumed infectious origin, hypokalemia, metabolic acidosis, and urinary tract infection with pyuria. The patient also had several home care visits and follow-ups with [facility] and [facility]. On February 16, 2024, the patient visited the emergency department at [facility], where Dr. Ana Luisa Luevano identified chronic kidney disease, coronary artery calcification, obstipation, pyuria, rectal pain, and urinary retention. The patient also had office visits at [facility] with Dr. Lalit Chavez and Dr. Leandro Schumacher, where chronic anemia was noted. The patient's data was also regularly monitored through an external device by Provider Abstract at [facility]. Surgical History Surgery Date(Month/Year) Any surgical history Breast surgery () Other
--- OUTSIDE RECORDS SUMMARY | 2025-07-24 14:04 | XMS_ITS | Encounter Summary ---
Author Organization [facility] Healthcare Address [address] [place] [address] Care Team Providers Care Floor Person Name Role Phone Federico Meza MD Primary Care Provider + [phone] Matthew Leon DPM Unavailable [phone] Encounter Details Date Type Department Care Team (Late st Contact Info) Description 11/11/[address] [facility] Physical Medicine and Rehabilitation [address] [place] [address] Flavia Freeman, CLINICAL CYTOPATHOLOGIST Social History Tobacco Use Types Packs/Day Years [...] 11/03/2022 How often do you attend chur or hindu services? Never 11/03/2022 Do you belong to any clubs o r organizations such as yarsanism groups, unions, fraternal or athletic groups, or [...] on file Legal Sex Female 12:23 PM CHEMOTHERAPIST Gender Identity Not on file Sexual Orientation Not on file documented as of this encounter Plan of Treatment Not on file documented as of this encounter Visit Diagnoses Not on filedocumented in this encounter Additional Health Concerns Infection Onset Date Last Indicated Resolved Time MRSA 07/03/2022 02/18/2023 08/17/2023 3:05 AM CHEMOTHERAPIST C. difficile Comment:Flag applied in error. 11/23/2022 11/23/2022 1:59 PM CDT C. difficile suspected 03/24/2024 03/24/202403/24 11:04 PM CDT C. difficile 03/24/2024 03/24/2024 03/24/2025 7:26 PM CDT documented as of this encounter Care Teams Floor Person Relationship Specialty Start Date End Date Federico Meza MD PCP - General Family Medicine 10/21/21 Matthew Leon, [address] [place] [address] Consulting Physician Foot and Ankle Surg 07/16/22 documented as of this encounter
--- OUTSIDE RECORDS SUMMARY | 2025-07-24 14:04 | XMS_ITS | Clinical Summary ---
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 Name Role Phone Federico Meza MD Primary Care Provider + [phone] Matthew Leon DPM Unavailable [phone] Allergies Active Allergy Reactions Criticality Noted Date Comments Ceftriaxone Rash High 08/25/2022 Iodinated Contrast Media Hives,Rash Medium 04/29/2022 Povidone-Iodine Hives,Rash Medium 04/29/2022 (surgical scrub) Medications amLODIPine (NORVASC) 10 mg tablet Take 1 tablet (10 mg total) by mouth daily 30 tablet 11 3 Active Additional Information Patient taking differently:10 mg oralDaily before breakfast, Indications: hypertension, Informant: Self, Reported on 04/11/2025 traZODone (DESYREL) 150 mg tablet Take 1 [...] Disease with Edema, Informant: Self, Reported on 04/11/2025 cholecalciferol (VITAMIN D-3) 2000 unit capsule Take [...] 10/30/2022 Assessment & Plan (10/30/2022 1:44 PM MOTOR EQUIPMENT CAPTAIN): Multifactorial from CKD stage 4 and acute [...] 10/30/2022 Assessment & Plan (10/30/2022 1:42 PM MOTOR EQUIPMENT CAPTAIN): Potassium level 5.7 on presentation, improved to [...] 2.13 Assessment & Plan (09/22/2022 12:02 PM MOTOR EQUIPMENT CAPTAIN): Continue to encourage p.o. fluid intake, creatinine increased to over 5, has now returned back to baseline around 3.2 Assessment & Plan (09/15/2022 12:08 PM MOTOR EQUIPMENT CAPTAIN): Renal function slowly improving, continue oral fluid intake. Assessment & Plan (09/14/2022 9:47 AM MOTOR EQUIPMENT CAPTAIN): Cr remains high, adding more IVF with potassium supplement added also. Follow daily labs. Antibiotics remain on hold 2/2 renal function Assessment & Plan (09/11/2022 2:21 PM MOTOR EQUIPMENT CAPTAIN): Cr continues to improve. Vivativ remains on hold, unsure on restarting, still above current baseline since admission. Receiving IVF today, 3rd bag. Recheck labs Wednesday. Assessment & Plan (09/11/2022 10:00 AM MOTOR EQUIPMENT CAPTAIN): Creatinine improved from 5.10-5 today. Continue IV fluid. Will repeat renal function a.m.. If creatinine worsens, may consider transferring patient to ER Assessment & Plan (09/08/2022 1:20 PM MOTOR EQUIPMENT CAPTAIN): Patient with acute change in creatinine up to 5.0, IV fluids initiated, we will repeat labs in a.m. encouraged p.o. fluid intake if possible. If patient's blood pressure changes, has any other clinical decline would recommend returning to emergency department for nephrology evaluation. COVID 08/25/2022 Assessment & Plan (09/22/2022 12:04 PM MOTOR EQUIPMENT CAPTAIN): Diagnosed with COVID on 07/03/2022, again positive on 08/22/2022 but patient was asymptomatic and did not require any further treatment. Continue supportive care Assessment & Plan (09/08/2022 1:24 PM MOTOR EQUIPMENT CAPTAIN): Clinical change with increased rhonchi, sats stable but will check CXR with new leukocytosis. Patient originally diagnosed with COVID on 07/03/2022 underwent treatment during hospital stay then. Had a new positive test 08/22/2022 on routine facility testing, has chronic congested cough but otherwise had no new symptoms. Assessment & Plan (09/01/2022 8:50 PM MOTOR EQUIPMENT CAPTAIN): Pt asymptomatic.Requesting repeat testing. Pt comes off isolation in am, so repeat testing is not necessary. Continue supportive care Assessment & Plan (08/26/2022 4:23 PM MOTOR EQUIPMENT CAPTAIN): Patient reports that she did have a [...] days Assessment & Plan (08/25/2022 11:35 AM MOTOR EQUIPMENT CAPTAIN): Pt diagnosed with COVID 08/22 on routine facility testing, pt asymptomatic at present. Pt previously diagnosed with COVID 07/03/22 - so doubt this is a new infection. Will continue to offer supportive care. Gross hematuria 08/25/2022 Assessment & Plan (08/27/2022 11:48 AM MOTOR EQUIPMENT CAPTAIN): UA ordered for Wednesday but no results - have notified nursing and asked to collect. Assessment & Plan (08/25/2022 11:54 AM MOTOR EQUIPMENT CAPTAIN): Check UA - h/h lower, not lenora blood. Pt is on heparin - will place on hold for now. Other specified anemias 08/25/2022 Assessment & Plan (09/22/2022 12:02 PM MOTOR EQUIPMENT CAPTAIN): H&H continues to improve, did receive some Epogen during her stay. Continue iron supplementation Assessment & Plan (09/14/2022 9:48 AM MOTOR EQUIPMENT CAPTAIN): H/H lower, will give epo today, recheck in am, may need transfusion Assessment & Plan (09/11/2022 2:23 PM MOTOR EQUIPMENT CAPTAIN): Hmg 6.9. Transfusion ordered but patient refused today. Recheck labs Wednesday. Could be r/t diluation with IVF also. Heparin on hold. Assessment & Plan (09/08/2022 1:27 PM MOTOR EQUIPMENT CAPTAIN): H&H has been stable, continue supplemental iron. Monitor Assessment & Plan (09/04/2022 1:58 PM MOTOR EQUIPMENT CAPTAIN): H&H with continued to decline. Continue to hold heparin, add iron although patient may not tolerate due to ongoing GI complaints. Will follow-up H&H 09/07/2022. Patient may need EPO Assessment & Plan (08/26/2022 4:26 PM MOTOR EQUIPMENT CAPTAIN): Heparin remain on hold, follow-up labs ordered but not done, will follow-up when labs available. Assessment & Plan (08/25/2022 11:55 AM MOTOR EQUIPMENT CAPTAIN): H/H slowly trending down, will hold heparin. Recheck in am. Hyperphosphatemia 08/17/2022 Assessment & Plan (08/17/2022 12:34 PM MOTOR EQUIPMENT CAPTAIN): Started on Sevelamer. Check level with next set of labs. Asymptomatic microscopic hematuria 08/17/2022 Assessment & Plan (08/17/2022 12:38 PM MOTOR EQUIPMENT CAPTAIN): Will need urology f/u outpt. Former smoker. Nausea & vomiting 08/14/2022 Assessment & Plan (09/22/2022 12:00 PM MOTOR EQUIPMENT CAPTAIN): This has been an ongoing issue since admission to [facility]. Patient does better with Pepcid, reduce Pepcid to 20 mg daily due to renal function. Continue p.r.n. Zofran Assessment & Plan (09/18/2022 1:23 PM MOTOR EQUIPMENT CAPTAIN): Intermittent. Large emesis today & yesterday. Schedule Zofran q8h & Pepcid PO. Poor PO intake per patient & staff. Meds reviewed. Believe large part psychlogical. Assessment & Plan (09/15/2022 12:09 PM MOTOR EQUIPMENT CAPTAIN): Resolved, give 2 more doses of pepcid then DC. Assessment & Plan (09/13/2022 3:50 PM MOTOR EQUIPMENT CAPTAIN): Improved. Did not receive IV Pepcid or IV Compazine d/t pharmacy not having. Will monitor for now. Believe may be s/t CDiff. Assessment & Plan (09/11/2022 2:25 PM MOTOR EQUIPMENT CAPTAIN): Comes and goes - no pattern. Is [...] 08/04/2022 Assessment & Plan (09/13/2022 3:51 PM MOTOR EQUIPMENT CAPTAIN): Completed IVF. Repeat labs pending for am. Assessment & Plan (09/04/2022 1:57 PM MOTOR EQUIPMENT CAPTAIN): Creatinine increased to 3.2, patient had some nausea, limiting her p.o. intake in the past 24 hours. Will give IV fluids, 2 L, recheck labs on 09/07/2022. Encouraged p.o. fluid intake if able. Continue Zofran for symptomatic management. Assessment & Plan (08/28/2022 6:22 PM MOTOR EQUIPMENT CAPTAIN): Renal function without improvement, sodium has improved from 129-132. Patient's p.o. intake remains suboptimal, agrees to 1 L normal saline, follow-up labs 08/31/2022 Assessment & Plan (08/27/2022 11:49 AM MOTOR EQUIPMENT CAPTAIN): Labs not drawn as ordered 08/26. Have emailed lab and asked for labs to be done STAT. Monitor. Assessment & Plan (08/26/2022 4:25 PM MOTOR EQUIPMENT CAPTAIN): Patient appears to be better, blood pressure controlled, repeat labs are still pending. Tolerated 1 L of normal saline well. Assessment & Plan (08/25/2022 11:52 AM MOTOR EQUIPMENT CAPTAIN): Cr worsened, now 2.8, new hyponatremia. Will give 1L NS, recheck labs in am Assessment & Plan (08/17/2022 12:34 PM MOTOR EQUIPMENT CAPTAIN): Continues to improve. Cr 1.6. Assessment & Plan (08/13/2022 6:33 AM MOTOR EQUIPMENT CAPTAIN): Follow-up BMP 08/13 Assessment & Plan (08/11/2022 9:11 AM MOTOR EQUIPMENT CAPTAIN): Cr 2.5. Slowly trending down. Continue renally dose abx. Continue to hold gabapentin & Cymbalta. No complaints of increased pain. Lovenox changed to Heparin. Assessment & Plan (08/07/2022 11:05 AM MOTOR EQUIPMENT CAPTAIN): Cr 2.6 - improved. On , will d/c after compeltion. Recheck labs Wednesday. Continue to hold nephrotoxins. Assessment & Plan (08/06/2022 12:31 PM MOTOR EQUIPMENT CAPTAIN): Cr 3 today. Hold lovenox, Lasix, Gabapentin. Start IVF - recheck labs in am. Have notifed ID about abx adjustment. Labs ordered for am. May need to consult Nephrology. Assessment & Plan (08/04/2022 3:28 PM MOTOR EQUIPMENT CAPTAIN): Cr continues to climb. CK stable at 38. Liver enzymes stable. Have discussed labs with pharmacy. Will decrease Cipro to 200mg BID, Dapto q48h, continue Lasix d/t anasarca. Repeat labs . Monitor closely, hold fluids d/t edema at this time. Hyponatremia 07/21/2022 Assessment & Plan (09/22/2022 12:01 PM MOTOR EQUIPMENT CAPTAIN): Resolved Assessment & Plan (08/26/2022 4:25 PM MOTOR EQUIPMENT CAPTAIN): Patient had worsening hyponatremia, fluid resuscitated yesterday, repeat labs are still pending despite multiple orders written. Assessment & Plan (08/11/2022 9:10 AM MOTOR EQUIPMENT CAPTAIN): Na 132. NaCl d/c d/t edema. Assessment & Plan (08/07/2022 11:05 AM MOTOR EQUIPMENT CAPTAIN): Improved with IVF Assessment & Plan (08/04/2022 3:30 PM MOTOR EQUIPMENT CAPTAIN): Holding NaCl tab & Cymbalta with edema Assessment & Plan (08/03/2022 12:31 PM MOTOR EQUIPMENT CAPTAIN): Na remains low, is on NaCl TID [...] rash. Assessment & Plan (09/22/2022 12:06 PM MOTOR EQUIPMENT CAPTAIN): Patient with multiple pull and varied skin rashes throughout her stay. Will start triamcinolone for scaly annular left lower extremity rash. Follow-up with PCP Assessment & Plan (08/13/2022 6:31 AM MOTOR EQUIPMENT CAPTAIN): Now patient complaining to RN of itchiness to legs. Continue Benadryl 25 mg q.8 p.r.n., will start prednisone 20 mg x 5 days, Assessment & Plan (08/11/2022 1:04 PM MOTOR EQUIPMENT CAPTAIN): Reoccurred today, appears like petechiae on leg - could be r/t dressing used at wound clinic Unsure cause. Will monitor. Assessment & Plan (08/03/2022 12:33 PM MOTOR EQUIPMENT CAPTAIN): Continues to resolve Assessment & Plan (07/31/2022 [...] 07/21/2022 Assessment & Plan (09/22/2022 12:05 PM MOTOR EQUIPMENT CAPTAIN): Stable/improved with gabapentin Assessment & Plan (08/17/2022 12:35 PM MOTOR EQUIPMENT CAPTAIN): Cr improved. Will restart gabapentin. Monitor. Assessment & Plan (08/11/2022 9:15 AM MOTOR EQUIPMENT CAPTAIN): Gabapentin & Cymalta held with Cr. Montior for ability to resume. Assessment & Plan (07/21/2022 5:45 AM CDT): Symptoms controlled with gabapentin 300 mg t.i.d.. Anxiety and depression 07/21/2022 Assessment & Plan (09/22/2022 12:05 PM MOTOR EQUIPMENT CAPTAIN): Patient remains withdrawn although has improved with increasing Wellbutrin dose. Cymbalta discontinued due to increasing renal function. Continue trazodone nightly for sleep Assessment & Plan (09/16/2022 1:28 PM MOTOR EQUIPMENT CAPTAIN): Continue supportive care, continue increased Wellbutrin Assessment & Plan (08/27/2022 11:47 AM MOTOR EQUIPMENT CAPTAIN): Increased depression with change in abx. Very flat/withdrawn. Will increase Wellbutrin. Have notified SS for counseling. Assessment & Plan (08/25/2022 11:43 AM MOTOR EQUIPMENT CAPTAIN): Pt withdrawn, needs encouragement. Continue wellbutrin 150mg daily, duloxetine. Assessment & Plan (08/17/2022 12:37 PM MOTOR EQUIPMENT CAPTAIN): Increased depression. Previously on Wellbutrin 300mg at home. Will resume at 150mg. Monitor. SS to discuss DCP. Currently on Daptomycin which is expensive for HH. Uncertain of support system for home also. Assessment & Plan (08/11/2022 12:57 PM MOTOR EQUIPMENT CAPTAIN): Cymbalta had been on hold for cr, improving and patient asking to restart. Will restart. Monitor. Assessment & Plan (07/21/2022 5:46 AM CDT): Continue home med trazodone 150 mg nightly, amitriptyline 50 mg nightly, duloxetine 30 mg Hypokalemia 07/21/2022 Assessment & Plan (09/22/2022 12:01 PM MOTOR EQUIPMENT CAPTAIN): Now with hyperkalemia since GI loss has improved. We will hold supplemental potassium, give lokelma x 1. Repeat BMP in a, rec f/u 09/25 Assessment & Plan (09/16/2022 1:28 PM MOTOR EQUIPMENT CAPTAIN): Likely secondary to GI loss, increase p.o. supplement Assessment & Plan (09/14/2022 9:48 AM MOTOR EQUIPMENT CAPTAIN): Increased PO supplement, also give some in IVF Assessment & Plan (09/11/2022 2:22 PM MOTOR EQUIPMENT CAPTAIN): Improved restarted on PO potassium per MD. Assessment & Plan (09/11/2022 10:02 AM MOTOR EQUIPMENT CAPTAIN): Potassium improved to 3. Will receive IV fluid with potassium chloride 1 L today again. Repeat labs a.m. Assessment & Plan (09/08/2022 1:31 PM MOTOR EQUIPMENT CAPTAIN): Attempt oral repleation - may need to add to IV if not able to take po Assessment & Plan (08/11/2022 9:10 AM MOTOR EQUIPMENT CAPTAIN): Level stable. Supplement d/c. Monitor. Assessment & Plan (08/03/2022 12:31 PM MOTOR EQUIPMENT CAPTAIN): Stable on supplement. Assessment & Plan (07/27/2022 [...] same Assessment & Plan (09/22/2022 11:59 AM MOTOR EQUIPMENT CAPTAIN): Blood pressures been lower throughout her stay, metoprolol has been discontinued, monitor as an outpatient, consider restarting if needed Assessment & Plan (09/11/2022 2:15 PM MOTOR EQUIPMENT CAPTAIN): BP stable. BB remains on hold. Assessment & Plan (09/08/2022 1:32 PM MOTOR EQUIPMENT CAPTAIN): BP lower, will place metoprolol on hold Assessment & Plan (09/04/2022 1:59 PM MOTOR EQUIPMENT CAPTAIN): Blood pressure stable, continue metoprolol 25 mg b.i.d. Assessment & Plan (08/28/2022 6:26 PM MOTOR EQUIPMENT CAPTAIN): Blood pressure variable but generally controlled, continue Lopressor Assessment & Plan (08/17/2022 12:31 PM MOTOR EQUIPMENT CAPTAIN): BP elevated. Currently on no meds. Will add Lopressor 25mg BID & monitor. Assessment & Plan (08/14/2022 10:59 AM MOTOR EQUIPMENT CAPTAIN): BP fluctuating. Monitor, may need adjustment. Assessment [...] 07/03/2022 Assessment & Plan (10/30/2022 1:46 PM MOTOR EQUIPMENT CAPTAIN): Replace home linagliptin with SSI for now, can start basal/bolus regimen if glucose is persistently elevated. Assessment & Plan (09/22/2022 12:00 PM MOTOR EQUIPMENT CAPTAIN): Blood sugars have been labile during her stay, Tresiba have been restarted however then had hypoglycemic episodes. Patient will be discharging home on Tradjenta 5 mg daily. Recommend monitoring blood sugars at least b.i.d., follow-up with PCP for further medication management Assessment & Plan (09/11/2022 2:17 PM MOTOR EQUIPMENT CAPTAIN): BS 80-124. No requiring insulin & Tresiba remains on hold. Assessment & Plan (09/08/2022 1:33 PM MOTOR EQUIPMENT CAPTAIN): Morning BS lower - will place tresiba on hold. Continue SSI with meals Assessment & Plan (09/04/2022 2:00 PM MOTOR EQUIPMENT CAPTAIN): No hypoglycemic episodes, blood sugars ranging from 135-168, continue Tresiba 5 units q.h.s., sliding scale insulin with meals Assessment & Plan (09/01/2022 8:53 PM MOTOR EQUIPMENT CAPTAIN): BS remains controlled, continue tight glycemic control to improve wound healing. Continue tresiba 5 units qhs, SSI. Assessment & Plan (08/25/2022 11:45 AM MOTOR EQUIPMENT CAPTAIN): BS generally controlled with tresiba 5 units qhs, tradjenta, SSI. No documented hypoglycemic episodes. Assessment & Plan (08/17/2022 12:32 PM MOTOR EQUIPMENT CAPTAIN): BS 101-250. Continue Tradjenta, SSI, Will restart Tresiba at 5u nightly. Monitor. Assessment & Plan (08/13/2022 6:33 AM MOTOR EQUIPMENT CAPTAIN): BG 115-177. Continue SSI, may expect elevated BG secondary to prednisone starting today Assessment & Plan (08/11/2022 1:00 PM MOTOR EQUIPMENT CAPTAIN): BS 147-223. Currently on SSI but not requiring often. Assessment & Plan (08/07/2022 11:02 AM MOTOR EQUIPMENT CAPTAIN): BS stable with some elevation - will resume SSI for wound health. Monitor. Assessment & Plan (08/03/2022 12:31 PM MOTOR EQUIPMENT CAPTAIN): BS running 74-156 on only Tradjenta, continue [...] (07/05/2022): Added automatically from request for surgery [id number] Assessment & Plan (07/21/2022 5:33 AM CDT): [...] colitis Assessment & Plan (10/30/2022 1:38 PM MOTOR EQUIPMENT CAPTAIN): Continues to have diarrhea after 10 day course of fidoxamicin, will start long vancomycin taper. ID consulted. Assessment & Plan (09/22/2022 12:03 PM MOTOR EQUIPMENT CAPTAIN): Patient has had recurrent C diff, completed Dificid - symptoms have now improved, leukocytosis resolved Assessment & Plan (09/15/2022 12:09 PM MOTOR EQUIPMENT CAPTAIN): Looser stool improving, completes difacid today. Assessment & Plan (09/14/2022 9:49 AM MOTOR EQUIPMENT CAPTAIN): Pt still with loose stool - c diff results pending. Rn sent order for stool culture incorrectly - although results are negative. Assessment & Plan (09/11/2022 9:59 AM MOTOR EQUIPMENT CAPTAIN): Stool tested positive for C diff. for recurrent infection will start on fidaxomicin 200 mg x 10 days, id team has been informed. Continue IV fluid Assessment & Plan (09/08/2022 9:17 PM MOTOR EQUIPMENT CAPTAIN): Diarrhea has returned, will check for C diff, continue replacement fluids Assessment & Plan (08/26/2022 4:22 PM MOTOR EQUIPMENT CAPTAIN): Patient is not having frequent loose stools, she is completed vancomycin. Patient likely can come off isolation for C diff Assessment & Plan (08/25/2022 11:18 AM MOTOR EQUIPMENT CAPTAIN): Pt completed vancomycin. Continue to monitor for loose stool as pt remains on antibiotics. Assessment & Plan (08/03/2022 12:32 PM MOTOR EQUIPMENT CAPTAIN): Diarrhea stable. Continue PO vanc taper. Assessment [...] (10/30/2022): Added automatically from request for surgery [id number] Lower abdominal pain 08/14/2022 022 Assessment & Plan (08/17/2022 12:33 PM MOTOR EQUIPMENT CAPTAIN): Resolved. CT negative. Assessment & Plan (08/14/2022 10:55 AM MOTOR EQUIPMENT CAPTAIN): Patient having lower abd pain with n/v for >72d. She is afebrile, labs stable, LFTs normalized, no diarrhea, BS well controlled. Tenderness to abd on palpation. Will obtain CT of abd pelvis, will be unable to use contrast with kidneys currently. Continue PRN zofran PO & IV. Will obtain stat labs today + UA. Anasarca 08/04/2022 08/11/2022 Assessment & Plan (08/07/2022 11:06 AM MOTOR EQUIPMENT CAPTAIN): Resolving despite fluids. Assessment & Plan (08/06/2022 12:20 PM MOTOR EQUIPMENT CAPTAIN): Remains puffy in arms but d/t Cr [...] 12/17/2022 Assessment & Plan (09/13/2022 3:51 PM MOTOR EQUIPMENT CAPTAIN): Cx remains positive for MRSA. Final cx pending. Abx on hold d/t LANNY will need to discuss with ID next week on stop for abx d/t missing doses. Assessment & Plan (08/07/2022 11:06 AM MOTOR EQUIPMENT CAPTAIN): Saw ID yesterday, wants abx to continue until 09/08 with weekly labs. Assessment & Plan (08/06/2022 12:18 PM MOTOR EQUIPMENT CAPTAIN): Patient has f/u with ID today. Will confirm abx stop date after appt. Assessment & Plan (08/03/2022 12:34 PM MOTOR EQUIPMENT CAPTAIN): Continue abx, labs & ID f/u as scheduled. Appreciate their recommendations & consults. Assessment & Plan (07/21/2022 5:27 AM CDT): As in # OM R toe Assessment & Plan (07/17/2022 2:04 PM CDT): SEE above Osteomyelitis of great toe of right foot 07/03/2022 12/17/2022 Overview (07/05/2022): Added automatically from request for surgery [id number] Assessment & Plan (09/22/2022 12:03 PM MOTOR EQUIPMENT CAPTAIN): Wound continues to slowly improve with wound VAC in place. Completed IV antibiotics, to complete an additional 2 weeks of doxycycline per Infectious Disease. Has follow-up with Podiatry/wound care clinic in [place] Assessment & Plan (09/16/2022 1:28 PM MOTOR EQUIPMENT CAPTAIN): Foot/wound remained stable. Per daughter wound care clinic considering doing hyperbaric treatment once discharged from senior living facility. Tolerating doxycycline without adverse reactions. Patient remains afebrile, without leukocytosis. Wound care nurse will start dressing change training/wound VAC training. We will work on starting wound VAC orders in anticipation for discharge early next week likely not before Wednesday09/22/2022. This was discussed with patient and daughter Assessment & Plan (09/15/2022 12:10 PM MOTOR EQUIPMENT CAPTAIN): Wound continues to slowly improve. Wound cx [...] planning Assessment & Plan (09/11/2022 10:02 AM MOTOR EQUIPMENT CAPTAIN): WBC normal. Blood culture negative. Telavancin currently on hold. Patient to start doxycycline from 09/23/2022. Continue wound care Assessment & Plan (09/08/2022 1:32 PM MOTOR EQUIPMENT CAPTAIN): Wound overall is stable, has new leukocytosis. Will check blood cultures, review wound in a.m. with wound care nurse when wound VAC is removed. Repeat cultures ordered We will hold Cipro due to worsening renal function, call out to pharmacist regarding Telavancin dosing - may need adjustment with worsening renal failure Notified ID IMPROVEMENT DIRECTOR via secure chat Assessment & Plan (09/01/2022 8:45 PM MOTOR EQUIPMENT CAPTAIN): Pain controlled, wound stable. Encouraged pt dtr to discuss wound healing possibilities with podiatry and consider repeat tissue sampling after the current coarse of antibiotics. Continue wound vac, patient doing well with therapy. Assessment & Plan (08/28/2022 6:25 PM MOTOR EQUIPMENT CAPTAIN): Patient tolerating antibiotic change well. Reinforced need for improvement in documentation of meds given by nursing staff, 2nd dose due today of telavancin through 09/22/2022, Cipro and fluconazole continue. Patient has follow-up wound clinic appointment 08/31/2022, to take Assessment & Plan (08/26/2022 4:21 PM MOTOR EQUIPMENT CAPTAIN): Received call from Infectious Disease that they [...] her. Assessment & Plan (08/25/2022 11:26 AM MOTOR EQUIPMENT CAPTAIN): Pt missed podiatry follow up due to [...] up. Assessment & Plan (08/11/2022 9:14 AM MOTOR EQUIPMENT CAPTAIN): Outpt wound clinic f/u with Dr. Leon today. Continue wound vac MWF. Wear post-op shoe with WB, can heel-touch WB with transfers. F/u 08/24. Assessment & Plan (08/06/2022 12:19 PM MOTOR EQUIPMENT CAPTAIN): Wound clinic appt with Dr. Leon 08/10. Assessment & Plan (08/04/2022 3:28 PM MOTOR EQUIPMENT CAPTAIN): Was able to reach Dr. Leon. Wants to see in Wound Clinic. Admin working on arranging appt. Assessment & Plan (08/03/2022 12:40 PM MOTOR EQUIPMENT CAPTAIN): Have attempted to call Dr. Fuller office again today. No answer, message left. Photos loaded to [employer]. Concerns with foot. Will add on Lasix [...] (06/30/2022): Added automatically from request for surgery [id number] Assessment & Plan (09/18/2022 1:25 PM MOTOR EQUIPMENT CAPTAIN): Will be unable to skill patient next week. SS/Wound RN working on d/c changing wound vac and changing to BID dressing changes instead to help with skilling patient. Educated orders must come from Dr. Leon. Assessment & Plan (09/13/2022 3:51 PM MOTOR EQUIPMENT CAPTAIN): Patient has f/u podiatry in am. VPC (ventricular premature complex) 06/24/2022 08/17/2022 Elevated lactic acid level 1 Acute respiratory failure with hypoxia 07/17/2022 Abscess of right lower leg 0 12/17/2022 Assessment & Plan (12/03/2022 11:01 AM MOTOR EQUIPMENT CAPTAIN): Leg with minimal edema. [place] have been removed. Okay to begin using the stump industrial specialist. Continue with the ampu shield to prevent trauma to the stump. Patient will call us back with any further questions or concerns. Assessment & Plan (10/30/2022 1:40 PM MOTOR EQUIPMENT CAPTAIN): Likely associated with known osteomyelitis with complicated [...] Medical History Date Comments Bipolar disorder, unspecified (HCC) Abdominal distention Chronic back pain Depression DEJESUS (dyspnea on exertion) COPD (chronic obstructive pu lmonary disease) H/O diabetic neuropathy Hypertension Hyperlipidemia Diabetes mellitus IBS (irritable bowel syndrome) Sleep apnea PTSD (post-traumatic stress disorder) Tubal Arrhythmia Foot fracture Hx of right BKA (HCC) Abscess of right lower leg Cellulitis of right lower extremity 10/29/2022 Added automatically from request for surgery [id number] Osteomyelitis of great toe o f right foot ([place] [facility]22 Added automatically from req uest for surgery [id number] Acute osteomyelitis of right ankle or foot ([facility]) 06/30/2022 Added automatically from req uest for surgery [id number] MRSA bacteremia 07/06/2022 PONV (postoperative nausea a nd vomiting) Chronic kidney disease H/O Clostridium difficile infection Type 2 diabetes mellitus Family History Medical History Relation Name Comments [...] loneliness or isolatio n Never 03/08/2024 [facility] Utilities Answer Date Recorded In the past 12 months has th e electric, gas, oil, or water company threatened to shut off services in your home? No 03/27/2024 Social Connection and Isolation Panel Answer Date Recorded In a typical week, how many times do you talk on the phone with family, friends, or neighbors? More than three times a week 03/27/2024 How often do you get togethe r with friends or relatives? Twice a week 03/27/2024 How often do you attend chur ch or episcopalian services? Never 03/27/2024 Do you belong to any clubs o r organizations such as tenriism groups, unions, fraternal or athletic groups, or [...] Patient Health Questionnaire-2 Score 0 11/26/2022 [facility] [place] of Occupat ional Health - Occupational Stress [...] place to sleep or slept in a penitentiary (including now)? No 02/19/2023 Housing Stability Vital Sign Answer Christiano e Recorded In the last 12 months, was t here a time when you were not able to pay the mortgage or rent on time? No 03/27/2024 In the past 12 months, how m any times have you moved where you were living? 0 03/27/2024 At any time in the past 12 m [facility], were you homeless or living in a penitentiary (including now)? 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 Gender Identity Not on file Sexual Orientation Not on file Obstetrics History Last Filed Vital Signs Vital Sign Reading Time Taken Comments Blood Pressure 132/74 04/11/2025 2:43 PM CDT Pulse 76 04/11/2025 2:43 PM CDT Temperature 36.3 C (97.3 F) 03/13/2025 12:10 PM CDT Respiratory Rate 18 03/13/2025 12:10 PM CDT Oxygen Saturation 94% 04/11/2025 2:43 PM CDT Inhaled Oxygen Concentration - - Weight 85.3 kg (188 lb) 04/11/2025 2:43 PM CDT Height 172.7 cm (5' 8) 04/11/2025 2:43 PM CDT Body Mass Index 28.59 04/11/2025 2:43 PM CDT Plan of Treatment Health Maintenance Due [...] 11/17/2023 11/17/2022, 11/17/19 23 eGFR 03/29/2025 03/29/2024, 07/10/2023, 03/27/2024, Additional history exists Influenza Vaccine (#1) 2025 DTaP/Tdap/Td Vaccine (2 - Td or Tdap) 10/19/2028 10/19/2018, 09/27/2007 Medical Devices Implanted Type Area Pad Extraction Tender Device Identifier Shelf Expiration Date Model / Serial / Lot [employer] Kit Fixation Alger Secondary Swivelock 4.75x19.1mm Ar-1593-[id number] - [id number] Implanted:Qty: 1 on 07/27/2023 by Abdifatah Rooney MD at [facility] Other - see comments Right: Leg [employer] 05/27/2027 AR-1593-[id number] / / [id number] [employer] Swivelock C 4.75mm 19.1mm Closed Eyelet Vent Alger Suture Ar-[id number] - [id number] Implanted:Qty: 1 on 07/27/2023 by Abdifatah Rooney MD at [facility] Other - see comments Right: Leg [employer] 10/27/2026 [id number] / / [id number] Procedures Procedure Name Priority Date/Time Associated Diagnosis Comments EGFR Routine 03/29/2024 5:05 AM CDT HEMOGLOBIN A1C Routine 02/18/2023 1:35 PM CDT POCT LIPID PANEL Routine 04/29/2022 2:20 PM CDT Lipid screening from Last 3 Months or Most Recently Relevant to Health Maintenance Results * (ABNORMAL) eGFR (03/29/2024 5:05 AM CDT) [...] Rodriguez MD LAB BLOOD ORDERABLES Final Result [facility] Department of Laboratories [place], [place] [id number] * Hemoglobin A1c (02/18/2023 1:35 PM CDT) Hgb A1C 4.8 4.0 - 5.6 % [facility] ([facility]) Estimated Average Glucose 91 mg/dL [facility] Comment: The ADA recommends reporting an estimated Average Glucose (eAG) with all Hemoglobin A1c results using the equation derived from a study of 507 normal and diabetic adults. Minority populations were underrepresented and children were not included. (Diabetes Care 31:7570-9660, 2008). The eAG is not equivalent to a fasting glucose. Blood 02/18/2023 1:35 PM CDT 02/18/2023 2:50 PM CDT Katie Hernandez MD LAB BLOOD ORDERABLES Final R esult [facility] ([facility]) 1 [facility] Department [place] [address] * POCT lipid panel (04/29/2022 2:20 PM CDT) Cholesterol, POC 104 mg/dL HDL, POC 20 mg/dL Triglycerides, POC 260 mg/dL LDL Cholesterol POC 32 mg/dL Chol/HDL Ratio, POC 5.2 Non-HDL Cholesterol, POC 84 mg/dL Cholesterol Total, POC 104 mg/dL Capillary blood 04/29/2022 2 :20 PM CDT us Kwan Evans MD POINT OF CARE TEST ORDER FLORENCIO Final Result from Last 3 Months or Most Recently Relevant to Health Maintenance [place] [address] [place] [address] OPEN ACCESS CIGNA OPEN ACCESS CIGNA OPEN ACCESS Advance Directives For more information, please contact: [phone] * Full Code (Latest Code Status on [...] 5:47 AM 11/16/2022 1:50 PM Care Teams Artillery Or Naval Gunfire Observer Relationship Specialty Start Date End Date Federico Meza MD PCP - General Family Medicine 10/21/21 Matthew Leon DPM [address] [place] [address] Consulting Physician Foot and Ankle Surg 07/16/22
== END 2025-07-24 12:16 | disposition home or self-care (01) ==
LOC: ANHLAB 12:16
PROVIDERS: PCP Family Medicine; Visit Provider Nurse Practitioner Adult Health
DX: E87.6 Hypokalemia (principal)
CPT/HCPCS: 36415; 80048

== ENCOUNTER 2025-07-27 11:24 | Inpatient (IN) | payer OTHER, SELFPAY ==
[2025-07-27] VITALS (25 sets, daily range): BP systolic 138–164; BP diastolic 49–96; PULSE 73–86; RESP 12–29; TEMP 36.4–36.9; O2SAT 97–100; BMI 27.3
--- NOTE | ~2025-07-27 | XR_ITS ---
Examination: XR chest port-a-cath/central Clinical History: TUNNEL DIALYSIS CATH PLACEMENT Comparison: Chest x-rays 07/27/2025 Technique: Portable AP Findings: Right permacath tip mid SVC. Mild cardiomegaly. Small left pleural effusion with streaky lower lobe atelectasis. Developing streaky atelectasis right lung base. No acute bony abnormality. IMPRESSION: 1. No pneumothorax. 2. Worsening bibasilar atelectasis. 3. Small left pleural effusion persists. Reviewed, dictated and finalized at location R. UNT SUPPORT SPECIALIST
--- NOTE | ~2025-07-27 | XR_ITS ---
EXAM/PROCEDURE: XR chest 2V HISTORY: Weakess COMPARISON: 2021 TECHNIQUE: Two view(s) of the chest. FINDINGS: LUNGS: There is strandy atelectasis versus infiltrate at the left lung base. PLEURAL SPACES: No pneumothorax. There is a mild degree of left pleural fluid. HEART/ MEDIASTINUM: There is prominence of the cardiac silhouette, at least in part related to the AP technique on the frontal view. SOFT TISSUES: No significant findings. BONES: No acute osseous abnormality. Moderate scoliosis convex to the right in the thoracic spine. IMPRESSION: Findings in the inferior left hemithorax as described. Reviewed, dictated and finalized at location A.
--- NOTE | ~2025-07-27 | XR_ITS ---
EXAMINATION: XR fluoroscopy no charge INDICATION: TUNNEL DIALYSIS CATH PLACEMENT . COMPARISON: None TECHNIQUE: 12 fluoroscopic images of the chest and upper abdomen were obtained during placement of a right-sided tunneled catheter for dialysis. Fluoroscopy exposure time was 1 minute and 47 seconds. Air Kerma 20.544 mGy. DAP 4.0727 mGym2. FINDINGS/IMPRESSION: No radiologist was present or involved at the time of the procedure. Static images were submitted for interpretation. Images demonstrate a guidewire entering from the right jugular. Some of the images demonstrate the wire to be engulfed by the dialysis catheter. There are images following guidewire removal. The tip of the dialysis catheter lies near the junction of the SVC with right atrium. The previously existing central venous catheter is noted. Fluoroscopic documentation of placement of tunneled dialysis catheter as described. Please refer to the operative note for complete procedural details. Reviewed, dictated and finalized at location A. LY LITERACY COORDINATOR
--- NOTE | ~2025-07-27 | CT_ITS ---
EXAMINATION: CT abdomen pelvis wo con DATE: 07/27/2025 15:36 INDICATION: Right lower quadrant abdominal pain and tenderness. Urinary tract infection. TECHNIQUE: Computed tomography (CT) of the abdomen and pelvis was performed without intravenous contrast. Automated exposure control and iterative reconstruction technique were employed. The dose-length product was 1186.62 mGy-cm. COMPARISON: 05/24/2024 FINDINGS: There is mild smooth pleural thickening along the visceral and parietal pleural margins of a small likely exudative left pleural effusion. There is bandlike discoid atelectasis with bronchovascular crowding in the left lower lobe. Additional thinner bands of discoid atelectasis in the right lower lobe without pleural effusion. Mild cardiomegaly. Atherosclerotic coronary artery calcific location. No pericardial effusion. Cholecystectomy clips the gallbladder fossa. Liver, pancreas, bilateral adrenal glands are normal. Splenomegaly measuring 15.2 cm craniocaudal length. 1.3 cm cyst at the lower pole the left kidney. Small of atherosclerotic calcification at the left renal hilum. No urolithiasis or hydronephrosis in either kidney. Borderline bladder wall thickening accounting for degree of distention with subtle minimal haziness to the surrounding fat suspicious for cystitis. The uterus is not identified and has likely been surgically resected. There are few scattered clonic diverticula without adjacent from trace stranding to suggest diverticular colitis. Small bowel and appendix are normal. No free intraperitoneal gas or fluid. No pathologically enlarged abdominal or pelvic lymphadenopathy. Small fat- containing umbilical hernia. Mild lumbar levocurvature with mild to moderate spondylosis. Chronic L2 superior endplate compression fracture. IMPRESSION: 1. Borderline bladder wall thickening and subtle haziness to the surrounding fat consistent with mild cystitis. Correlate with urinalysis. 2. Pleural thickening along the margins of a small likely complex left pleural effusion. 3. Mild cardiomegaly. 4. Nonspecific splenomegaly. 5. Small fat-containing umbilical hernia. Reviewed, dictated and finalized at location A. IMPRESSION: 1. Borderline bladder wall thickening and subtle haziness to the surrounding fa t consistent with mild cystitis. Correlate with urinalysis. 2. Pleural thickening along the margins of a small likely complex left pleural effusion. 3. Mild cardiomegaly. 4. Nonspecific splenomegaly. 5. Small fat-containing umbilical hernia.
--- NOTE | ~2025-07-27 | CT_ITS ---
EXAMINATION: CT brain wo con, 07/27/2025 15:15 CDT HISTORY: encephalopathy, weakness COMPARISON: No comparisons available. Technique: Axial images obtained of the brain without contrast. One or more of the following dose reduction techniques were used: automated exposure control, adjustment of the mA and/or kV according to patient size, use of iterative reconstruction technique. Findings: No acute infarct or parenchymal hemorrhage. No abnormal mass or mass effect. No midline shift. No extra-axial fluid collections. No hydrocephalus. Mastoid air cells unremarkable. Sinuses and orbits unremarkable. No acute fracture. No significant facial or scalp soft tissue swelling evident. No radiopaque foreign body is seen. Impression: 1.No acute intracranial abnormality. Reviewed, dictated and finalized at location P. Impression: 1.No acute intracranial abnormality.
--- OUTSIDE RECORDS SUMMARY | 2025-07-27 11:35 | XMS_ITS | Clinical Summary ---
Author Organization [facility] Address [address] [address] Phone Care Team Providers Care Handbook Writer Name Role Phone Chase Leigh MD Primary [...] (COMPREHENSIVE METABOLIC PANEL) Today 10/28/2015 1:20 PM TRIPE COOKER Type 2 diabetes mellitus without complication (HCC) HEMOGLOBIN A1C W/ ESTIMATED GLUCOSE Routine 10/28/2015 1:20 PM TRIPE COOKER Type 2 diabetes mellitus without complication (HCC) HM COLONOSCOPY Routine 05/08/2015 from Last 3 Months or Most Recently Relevant to Health Maintenance Results * HEMOGLOBIN A1C W/ ESTIMATED GLUCOSE (10/28/2015 1:20 PM TRIPE COOKER) HGB-A1C 6.3 4.4 - 6.4 % 10/28/2015 4:15 PM TRIPE COOKER [facility] Est Average Glucose 134.1 mg/dL 10/28/2015 4:15 PM TRIPE COOKER [facility] Blood specimen (specimen) Venipuncture / Unknown 10/28/2015 1:20 PM TRIPE COOKER 10/28/2015 1:24 PM TRIPE COOKER Narrative [facility] - 10/28/2015 4:15 PM TRIPE COOKER HEMOGLOBIN A1C: DIABETIC PATIENTS: WELL-CONTROLLED: 6.2 - 7.0 INTERMEDIATE WELL-CONTROLLED: 7.0 - 9.0 POORLY-CONTROLLED: >9.0 us Mart Harris MD CHEMISTRY ORDERABLES Smita rasmussen Result [facility] [address] [place] [address] * (ABNORMAL) CMP (COMPREHENSIVE METABOLIC PANEL) (10/28/2015 1:20 PM TRIPE COOKER) Pathologist [facility] SODIUM 138 131 - 143 mmol/L 10/28/2015 4:28 PM TRIPE COOKER [facility] POTASSIUM 4.0 3.5 - 5.1 mmol/L 10/28/2015 4:28 PM TRIPE COOKER [facility] CHLORIDE 99(L) 100 - 110 mmol/L 10/28/2015 4:28 PM TRIPE COOKER [facility] CO2, VENOUS 27 22 - 32 mmol/L 10/28/2015 4:28 PM TRIPE COOKER [facility] ANION GAP 16.0 8.0 - 20.0 mmol/L 10/28/2015 4:28 PM TRIPE COOKER [facility] GLUCOSE 117(H) 70 - 105 mg/dL 10/28/2015 4:28 PM [facility] BUN 7(L) 10 - 31 mg/dL 10/28/2015 4:28 PM [facility] CREATININE, BLOOD 0.60 0.60 - 1.30 mg/dL 10/28/2015 4:28 PM [facility] BUN/CREATININE RATIO 12 12 - 20 ratio 10/28/2015 4:28 PM [facility] TOTAL PROTEIN 7.6 6.0 - 8.3 g/dL 10/28/2015 4:28 PM [facility] ALBUMIN 4.4 3.5 - 5.2 g/dL 10/28/2015 4:28 PM [facility] A/G RATIO 1.4 1.0 - 2.0 10/28/2015 4:28 PM [facility] CALCIUM 9.7 8.9 - 10.3 mg/dL 10/28/2015 4:28 PM [facility] T BILI 0.5 0.3 - 1.2 mg/dL 10/28/2015 4:28 PM [facility] SGOT (AST) 25 1 - 32 U/L 10/28/2015 4:28 PM [facility] SGPT (ALT) 19 1 - 33 U/L 10/28/2015 4:28 PM [facility] ALKALINE PHOSPHATASE 98 35 - 105 U/L 10/28/2015 4:28 PM [facility] GFR, EST. NONAFRICAN >60 >=60 10/28/2015 4:28 PM [facility] GFR, EST. >60 >=60 10/28/2015 4:28 PM [facility] Comment: Creatinine Clearance is the preferred criteria for selecting drug dose adjustments in renally impaired patients. The GFR is provided as additional pertinent clinical information. GFR is reported in mL/min/1.73 sq m. Blood specimen (specimen) Venipuncture / Unknown 10/28/2015 1:20 PM TRIPE COOKER 10/28/2015 1:24 PM TRIPE COOKER us Matr Harris MD CHEMISTRY ORDERABLES Smita rasmussen Result [facility] [address] [place] [address] * HM COLONOSCOPY (05/08/2015) us uYan Bates MD PROCEDURE/MINOR SURGICAL ORDERAB LES Final Result from Last 3 Months or Most Recently Relevant to Health Maintenance Insurance MEDICARE C CIGNA Care Teams Handbook Writer Relationship Specialty Start Date End Date Chase Leigh MD [address] [place], [place] [id number] PCP - General Family Medicine 02/03/18
--- OUTSIDE RECORDS SUMMARY | 2025-07-27 11:36 | XMS_ITS | Clinical Summary ---
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 Gender Identity Not on file Sexual Orientation Not on file Last Filed Vital Signs Vital Sign Reading Time Taken Comments Blood Pressure 132/73 10/25/2024 2:47 PM OUTGOING INSPECTOR Pulse 81 10/25/2024 2:47 PM OUTGOING INSPECTOR Temperature 36.7 C (98.1 F) 10/25/2024 2:47 PM OUTGOING INSPECTOR Respiratory Rate 15 10/25/2024 2:47 PM OUTGOING INSPECTOR Oxygen Saturation 94% 10/25/2024 2:47 PM OUTGOING INSPECTOR Inhaled Oxygen Concentration - - Weight 88.1 kg (194 lb 3.2 oz) 10/25/2024 2:47 P M OUTGOING INSPECTOR Height 172.7 cm (5' 8) 09/22/2024 1:13 PM OUTGOING INSPECTOR Body Mass Index 29.53 09/22/2024 1:13 PM OUTGOING INSPECTOR Plan of Treatment Health Maintenance Due Date [...] (2 - Td or Tdap) 10/19/2028 Insurance [facility] C20 Care Teams Manager Corporate Strategy Relationship Specialty Start Date End Date Federico Meza MD [address] [place] [id number] PCP - General Family Practice 09/12/24
--- OUTSIDE RECORDS SUMMARY | 2025-07-27 11:36 | XMS_ITS | Patient Health Record ---
Author Organization [facility] [employer] Address [address] [place] [address] Care Team Providers Care Education Faculty Member Name Role Phone Susana VILLALTA, Federico Primary Care Provider Gary Rojas Unavailable [phone] Allergies Allergen (clinical drug ingredient) Drug/Non Drug Allergy documented on EMR Reaction Allergy Type Onset Date Status povidone-iodine Betadine Unknown Drug Allergy 12/02/2023 Active ceftriaxone Ceftriaxone Unknown Drug Allergy 12/02/2023 Ac tive Reason For Referral No Information Medications Medication SIG (Take, Route, Frequency, Duration) Notes Start Date End Date Status FREESTYLE KAITLIN 2 SENSOR KIT *Reorder from [employer] for eRx and Interaction Alerts* 12/02/2023 Active HUMALOG KWIKPEN U-200 200 unit/mL (3 mL) Solution Pen-injector Subcutaneous *Reorder from [employer] for eRx and Interaction Alerts* 12/02/2023 Active OneTouch Ultra Strip In Vitro 12/02/2023 Active PEN NEEDLE 31 gauge x 1/4 NEEDLE, DISPOSABLE MISCELLANEOUS *Reorder from [employer] for eRx and Interaction Alerts* 12/02/2023 Active Atorvastatin Calcium 10 MG Tablet Oral 12/02/2023 Active ProAir HFA 108 (90 Base) MCG/ACT Aerosol Solution Inhalation 12/02/2023 Active ULTRA-FINE MICRO PEN NEEDLE 32 gauge x 1/4 NEEDLE, DISPOSABLE MISCELLANEOUS *Reorder from [employer] for eRx and Interaction Alerts* 12/02/2023 Active Gabapentin 300 MG Capsule Oral 12/02/2023 Active Dexcom G7 Gaggerman 12/02/2023 Active hydrALAZINE HCl 25 MG Tablet Oral 12/02/2023 Active Ondansetron HCl 4 MG Tablet Oral 12/02/2023 Active Sertraline HCl 100 MG Tablet 1 tablet Oral Once a day; Duration: 30 days Active DEXCOM G7 SENSOR DEVICE *Reorder from [employer] for eRx and Interaction Alerts* 12/02/2023 Active traZODone HCl 150 MG Tablet 1 tablet at bedtime Oral Once a day; Duration: 30 days As needed Active PEN NEEDLE, DIABETIC 31 GAUGE X 15/64 *Reorder from [employer] for eRx and Interaction Alerts* 12/02/2023 Active buPROPion HCl ER (XL) 300 MG Tablet Extended Release 24 Hour 1 tablet in the morning Oral Once a day; Duration: 30 days Active TRUEPLUS PEN NEEDLE 31 gauge x 5/16 NEEDLE, DISPOSABLE MISCELLANEOUS *Reorder from [employer] for eRx and Interaction Alerts* 12/02/2023 Active Rexulti 2 mg Tablet 1 tablet Oral once a day; Duration: 30 days Active BAQSIMI 3 MG/ACTUATION NASAL SPRAY *Reorder from [employer] for eRx and Interaction Alerts* 12/02/2023 Active [...] decision-maker No Do you have Power of Hoop Rolls Operator for Health or [facility]? No Tobacco Use: Social Info Question Answer Notes Tobacco Control (Standard) Tobacco use: Nonsmoker Additional Details Category Social Info Options Details Migrated Social History Migrated Social History Alcohol Intake: None 07/08/2018,Tobacco Years: Current every day smoker 05/04/2019 Problems Problem Type SNOMED Code ICD Code Onset Dates Problem Status W/U Status Risk Notes Problem Severe recurrent major depression without psychotic features (03716576) Major depressive disorder, recurrent severe without psychotic features (F33.2) 3 Active confirmed Problem Generalized anxiety disorder (51724862) Generalized anxiety disorder (F41.1) 4 Active confirmed Problem Insomnia (796188884) Other insomnia (G47.09) 4 Active confirmed Problem Chronic kidney disease stage 4 (012050883) Chronic kidney disease, stage 4 (severe) (N18.4) 4 Active confirmed Problem Tobacco user (002363729) Nicotine dependence with current use (F17.200) Active confirmed Vital Signs Heart Rate 80 /min 05/14/2025 Height-cm 172.72 cm 05/14/2025 Blood pressure diastolic 72 mm Hg 05/14/2025 Weight-kg 84.82 kg 05/14/2025 Height 68.00 in 05/14/2025 Blood pressure systolic 157 mm Hg 05/14/2025 Weight 187 lbs 05/14/2025 BMI 28.43 kg/m2 05/14/2025 Encounters Encounter Location Date Provider Diagnosis [facility] [address] [address] 08/10/2024 Gary Dominguez Major depressive disorder, recurrent severe without psychotic features F33.2 ; Generalized anxiety disorder F41.1 ; Other insomnia G47.09 ; Chronic kidney disease, stage 4 (severe) N18.4 ; Hypokalemia E87.6 and Nicotine dependence with current use F17.200 [facility] [address] [address] 11/13/2024 Gary Dominguez Benign essential HTN I10 ; Major depressive disorder, recurrent severe without psychotic features F33.2 ; Generalized anxiety disorder F41.1 ; Other insomnia G47.09 ; Chronic kidney disease, stage 4 (severe) N18.4 ; Hypokalemia E87.6 and Nicotine dependence with current use F17.200 [facility] [address] [address] 02/05/2025 Gary Dominguez Encounter for screen ing [...] and Nicotine dependence with current use F17.200 [facility] [employer] [address] [place] [address] 05/14/2025 Gary Dominguez Major depressive disorder, recurrent [...] Details Provider Name:Gary rushing, 08/14/2025 11:45:00 AM, [address], [facility] [address], [place], [address], Insurance Providers Payer Name Payer Address Payer Phone Subscriber Number Group Number Insured Name Patient Relationship to Insured Coverage Start Date Coverage End Date [facility] [address] [place] [address] [id number] HERNANDEZ, MARISELA Spouse - patient is the [...] was hospitalized on March 24, 2024, at [facility] under the care of Dr. Julisa Sen. The patient was diagnosed with acute renal failure, dehydration, diarrhea of presumed infectious origin, hypokalemia, metabolic acidosis, and urinary tract infection with pyuria. The patient also had several home care visits and follow-ups with [facility] and [facility]. On February 16, 2024, the patient visited the emergency department at [facility], where Dr. Ana Luisa Luevano identified chronic kidney disease, coronary artery calcification, obstipation, pyuria, rectal pain, and urinary retention. The patient also had office visits at [facility] with Dr. Lalit Chavez and Dr. Leandro Schumacher, where chronic anemia was noted. The patient's data was also regularly monitored through an external device by Provider Abstract at [facility]. Surgical History Surgery Date(Month/Year) Any surgical history Breast surgery () Other
--- OUTSIDE RECORDS SUMMARY | 2025-07-27 11:36 | XMS_ITS | Encounter Summary ---
Author Organization [facility] Address [address] [place] [address] Care Team Providers Care Paleobotanist Name Role Phone Federico Meza MD Primary Care Provider [phone] Encounter Details Date Type Department Care Team (Late st Contact Info) Description 07/25/2025 External Device Data [facility] Provider, Abstract NO ADDRESS ON FILE Social History Tobacco Use Types Packs/Day Years Used Date Smoking Tobacco: Every Day Cigarettes 1 43.8 Started: 09/1981 Alcohol Use Standard Drinks/Week Comments Never 0 (1 standard drink = 0.6 oz pur e alcohol) Comments Unknown Sex and Gender Information Value Date Recorded Sex Assigned at Not on file Legal Sex Female 10:15 AM PUMP STITCHER Gender Identity Not on file Sexual Orientation Not on file documented as of this encounter Plan of Treatment Not on file documented as of this encounter Visit Diagnoses Not on filedocumented in this encounter Care Teams Paleobotanist Relationship Specialty Start Date End Date Federico Meza MD [address] [place] [address] PCP - General Family Practice 09/12/24 documented as of this encounter
--- OUTSIDE RECORDS SUMMARY | 2025-07-27 11:36 | XMS_ITS | Clinical Summary ---
[place] [facility] [place] [address] Address [address] [place] [address] Care Team Providers Care Safety Spec Name Role Phone Federico Meza MD Primary Care Provider + [phone] Matthew Leon DPM Unavailable [phone] Allergies Active Allergy Reactions Criticality Noted [...] 10/30/2022 Assessment & Plan (10/30/2022 1:44 PM MANAGER OF DATA): Multifactorial from CKD stage 4 and acute [...] 10/30/2022 Assessment & Plan (10/30/2022 1:42 PM MANAGER OF DATA): Potassium level 5.7 on presentation, improved to [...] 2.13 Assessment & Plan (09/22/2022 12:02 PM MANAGER OF DATA): Continue to encourage p.o. fluid intake, creatinine increased to over 5, has now returned back to baseline around 3.2 Assessment & Plan (09/15/2022 12:08 PM MANAGER OF DATA): Renal function slowly improving, continue oral fluid intake. Assessment & Plan (09/14/2022 9:47 AM MANAGER OF DATA): Cr remains high, adding more IVF with potassium supplement added also. Follow daily labs. Antibiotics remain on hold 2/2 renal function Assessment & Plan (09/11/2022 2:21 PM MANAGER OF DATA): Cr continues to improve. Vivativ remains on hold, unsure on restarting, still above current baseline since admission. Receiving IVF today, 3rd bag. Recheck labs Wednesday. Assessment & Plan (09/11/2022 10:00 AM MANAGER OF DATA): Creatinine improved from 5.10-5 today. Continue IV fluid. Will repeat renal function a.m.. If creatinine worsens, may consider transferring patient to ER Assessment & Plan (09/08/2022 1:20 PM MANAGER OF DATA): Patient with acute change in creatinine up to 5.0, IV fluids initiated, we will repeat labs in a.m. encouraged p.o. fluid intake if possible. If patient's blood pressure changes, has any other clinical decline would recommend returning to emergency department for nephrology evaluation. COVID 08/25/2022 Assessment & Plan (09/22/2022 12:04 PM MANAGER OF DATA): Diagnosed with COVID on 07/03/2022, again positive on 08/22/2022 but patient was asymptomatic and did not require any further treatment. Continue supportive care Assessment & Plan (09/08/2022 1:24 PM MANAGER OF DATA): Clinical change with increased rhonchi, sats stable but will check CXR with new leukocytosis. Patient originally diagnosed with COVID on 07/03/2022 underwent treatment during hospital stay then. Had a new positive test 08/22/2022 on routine facility testing, has chronic congested cough but otherwise had no new symptoms. Assessment & Plan (09/01/2022 8:50 PM MANAGER OF DATA): Pt asymptomatic.Requesting repeat testing. Pt comes off isolation in am, so repeat testing is not necessary. Continue supportive care Assessment & Plan (08/26/2022 4:23 PM MANAGER OF DATA): Patient reports that she did have a [...] days Assessment & Plan (08/25/2022 11:35 AM MANAGER OF DATA): Pt diagnosed with COVID 08/22 on routine facility testing, pt asymptomatic at present. Pt previously diagnosed with COVID 07/03/22 - so doubt this is a new infection. Will continue to offer supportive care. Gross hematuria 08/25/2022 Assessment & Plan (08/27/2022 11:48 AM MANAGER OF DATA): UA ordered for Wednesday but no results - have notified nursing and asked to collect. Assessment & Plan (08/25/2022 11:54 AM MANAGER OF DATA): Check UA - h/h lower, not lenora blood. Pt is on heparin - will place on hold for now. Other specified anemias 08/25/2022 Assessment & Plan (09/22/2022 12:02 PM MANAGER OF DATA): H&H continues to improve, did receive some Epogen during her stay. Continue iron supplementation Assessment & Plan (09/14/2022 9:48 AM MANAGER OF DATA): H/H lower, will give epo today, recheck in am, may need transfusion Assessment & Plan (09/11/2022 2:23 PM MANAGER OF DATA): Hmg 6.9. Transfusion ordered but patient refused today. Recheck labs Wednesday. Could be r/t diluation with IVF also. Heparin on hold. Assessment & Plan (09/08/2022 1:27 PM MANAGER OF DATA): H&H has been stable, continue supplemental iron. Monitor Assessment & Plan (09/04/2022 1:58 PM MANAGER OF DATA): H&H with continued to decline. Continue to hold heparin, add iron although patient may not tolerate due to ongoing GI complaints. Will follow-up H&H 09/07/2022. Patient may need EPO Assessment & Plan (08/26/2022 4:26 PM MANAGER OF DATA): Heparin remain on hold, follow-up labs ordered but not done, will follow-up when labs available. Assessment & Plan (08/25/2022 11:55 AM MANAGER OF DATA): H/H slowly trending down, will hold heparin. Recheck in am. Hyperphosphatemia 08/17/2022 Assessment & Plan (08/17/2022 12:34 PM MANAGER OF DATA): Started on Sevelamer. Check level with next set of labs. Asymptomatic microscopic hematuria 08/17/2022 Assessment & Plan (08/17/2022 12:38 PM MANAGER OF DATA): Will need urology f/u outpt. Former smoker. Nausea & vomiting 08/14/2022 Assessment & Plan (09/22/2022 12:00 PM MANAGER OF DATA): This has been an ongoing issue since admission to [facility] [place]. Patient does better with Pepcid, reduce Pepcid to 20 mg daily due to renal function. Continue p.r.n. Zofran Assessment & Plan (09/18/2022 1:23 PM MANAGER OF DATA): Intermittent. Large emesis today & yesterday. Schedule Zofran q8h & Pepcid PO. Poor PO intake per patient & staff. Meds reviewed. Believe large part psychlogical. Assessment & Plan (09/15/2022 12:09 PM MANAGER OF DATA): Resolved, give 2 more doses of pepcid then DC. Assessment & Plan (09/13/2022 3:50 PM MANAGER OF DATA): Improved. Did not receive IV Pepcid or IV Compazine d/t pharmacy not having. Will monitor for now. Believe may be s/t CDiff. Assessment & Plan (09/11/2022 2:25 PM MANAGER OF DATA): Comes and goes - no pattern. Is [...] 08/04/2022 Assessment & Plan (09/13/2022 3:51 PM MANAGER OF DATA): Completed IVF. Repeat labs pending for am. Assessment & Plan (09/04/2022 1:57 PM MANAGER OF DATA): Creatinine increased to 3.2, patient had some nausea, limiting her p.o. intake in the past 24 hours. Will give IV fluids, 2 L, recheck labs on 09/07/2022. Encouraged p.o. fluid intake if able. Continue Zofran for symptomatic management. Assessment & Plan (08/28/2022 6:22 PM MANAGER OF DATA): Renal function without improvement, sodium has improved from 129-132. Patient's p.o. intake remains suboptimal, agrees to 1 L normal saline, follow-up labs 08/31/2022 Assessment & Plan (08/27/2022 11:49 AM MANAGER OF DATA): Labs not drawn as ordered 08/26. Have emailed lab and asked for labs to be done STAT. Monitor. Assessment & Plan (08/26/2022 4:25 PM MANAGER OF DATA): Patient appears to be better, blood pressure controlled, repeat labs are still pending. Tolerated 1 L of normal saline well. Assessment & Plan (08/25/2022 11:52 AM MANAGER OF DATA): Cr worsened, now 2.8, new hyponatremia. Will give 1L NS, recheck labs in am Assessment & Plan (08/17/2022 12:34 PM MANAGER OF DATA): Continues to improve. Cr 1.6. Assessment & Plan (08/13/2022 6:33 AM MANAGER OF DATA): Follow-up BMP 08/13 Assessment & Plan (08/11/2022 9:11 AM MANAGER OF DATA): Cr 2.5. Slowly trending down. Continue renally dose abx. Continue to hold gabapentin & Cymbalta. No complaints of increased pain. Lovenox changed to Heparin. Assessment & Plan (08/07/2022 11:05 AM MANAGER OF DATA): Cr 2.6 - improved. On , will d/c after compeltion. Recheck labs Wednesday. Continue to hold nephrotoxins. Assessment & Plan (08/06/2022 12:31 PM MANAGER OF DATA): Cr 3 today. Hold lovenox, Lasix, Gabapentin. Start IVF - recheck labs in am. Have notifed ID about abx adjustment. Labs ordered for am. May need to consult Nephrology. Assessment & Plan (08/04/2022 3:28 PM MANAGER OF DATA): Cr continues to climb. CK stable at 38. Liver enzymes stable. Have discussed labs with pharmacy. Will decrease Cipro to 200mg BID, Dapto q48h, continue Lasix d/t anasarca. Repeat labs . Monitor closely, hold fluids d/t edema at this time. Hyponatremia 07/21/2022 Assessment & Plan (09/22/2022 12:01 PM MANAGER OF DATA): Resolved Assessment & Plan (08/26/2022 4:25 PM MANAGER OF DATA): Patient had worsening hyponatremia, fluid resuscitated yesterday, repeat labs are still pending despite multiple orders written. Assessment & Plan (08/11/2022 9:10 AM MANAGER OF DATA): Na 132. NaCl d/c d/t edema. Assessment & Plan (08/07/2022 11:05 AM MANAGER OF DATA): Improved with IVF Assessment & Plan (08/04/2022 3:30 PM MANAGER OF DATA): Holding NaCl tab & Cymbalta with edema Assessment & Plan (08/03/2022 12:31 PM MANAGER OF DATA): Na remains low, is on NaCl TID [...] rash. Assessment & Plan (09/22/2022 12:06 PM MANAGER OF DATA): Patient with multiple pull and varied skin rashes throughout her stay. Will start triamcinolone for scaly annular left lower extremity rash. Follow-up with PCP Assessment & Plan (08/13/2022 6:31 AM MANAGER OF DATA): Now patient complaining to RN of itchiness to legs. Continue Benadryl 25 mg q.8 p.r.n., will start prednisone 20 mg x 5 days, Assessment & Plan (08/11/2022 1:04 PM MANAGER OF DATA): Reoccurred today, appears like petechiae on leg - could be r/t dressing used at wound clinic Unsure cause. Will monitor. Assessment & Plan (08/03/2022 12:33 PM MANAGER OF DATA): Continues to resolve Assessment & Plan (07/31/2022 [...] 07/21/2022 Assessment & Plan (09/22/2022 12:05 PM MANAGER OF DATA): Stable/improved with gabapentin Assessment & Plan (08/17/2022 12:35 PM MANAGER OF DATA): Cr improved. Will restart gabapentin. Monitor. Assessment & Plan (08/11/2022 9:15 AM MANAGER OF DATA): Gabapentin & Cymalta held with Cr. Montior for ability to resume. Assessment & Plan (07/21/2022 5:45 AM CDT): Symptoms controlled with gabapentin 300 mg t.i.d.. Anxiety and depression 07/21/2022 Assessment & Plan (09/22/2022 12:05 PM MANAGER OF DATA): Patient remains withdrawn although has improved with increasing Wellbutrin dose. Cymbalta discontinued due to increasing renal function. Continue trazodone nightly for sleep Assessment & Plan (09/16/2022 1:28 PM MANAGER OF DATA): Continue supportive care, continue increased Wellbutrin Assessment & Plan (08/27/2022 11:47 AM MANAGER OF DATA): Increased depression with change in abx. Very flat/withdrawn. Will increase Wellbutrin. Have notified SS for counseling. Assessment & Plan (08/25/2022 11:43 AM MANAGER OF DATA): Pt withdrawn, needs encouragement. Continue wellbutrin 150mg daily, duloxetine. Assessment & Plan (08/17/2022 12:37 PM MANAGER OF DATA): Increased depression. Previously on Wellbutrin 300mg at home. Will resume at 150mg. Monitor. SS to discuss DCP. Currently on Daptomycin which is expensive for HH. Uncertain of support system for home also. Assessment & Plan (08/11/2022 12:57 PM MANAGER OF DATA): Cymbalta had been on hold for cr, improving and patient asking to restart. Will restart. Monitor. Assessment & Plan (07/21/2022 5:46 AM CDT): Continue home med trazodone 150 mg nightly, amitriptyline 50 mg nightly, duloxetine 30 mg Hypokalemia 07/21/2022 Assessment & Plan (09/22/2022 12:01 PM MANAGER OF DATA): Now with hyperkalemia since GI loss has improved. We will hold supplemental potassium, give lokelma x 1. Repeat BMP in a, rec f/u 09/25 Assessment & Plan (09/16/2022 1:28 PM MANAGER OF DATA): Likely secondary to GI loss, increase p.o. supplement Assessment & Plan (09/14/2022 9:48 AM MANAGER OF DATA): Increased PO supplement, also give some in IVF Assessment & Plan (09/11/2022 2:22 PM MANAGER OF DATA): Improved restarted on PO potassium per MD. Assessment & Plan (09/11/2022 10:02 AM MANAGER OF DATA): Potassium improved to 3. Will receive IV fluid with potassium chloride 1 L today again. Repeat labs a.m. Assessment & Plan (09/08/2022 1:31 PM MANAGER OF DATA): Attempt oral repleation - may need to add to IV if not able to take po Assessment & Plan (08/11/2022 9:10 AM MANAGER OF DATA): Level stable. Supplement d/c. Monitor. Assessment & Plan (08/03/2022 12:31 PM MANAGER OF DATA): Stable on supplement. Assessment & Plan (07/27/2022 [...] same Assessment & Plan (09/22/2022 11:59 AM MANAGER OF DATA): Blood pressures been lower throughout her stay, metoprolol has been discontinued, monitor as an outpatient, consider restarting if needed Assessment & Plan (09/11/2022 2:15 PM MANAGER OF DATA): BP stable. BB remains on hold. Assessment & Plan (09/08/2022 1:32 PM MANAGER OF DATA): BP lower, will place metoprolol on hold Assessment & Plan (09/04/2022 1:59 PM MANAGER OF DATA): Blood pressure stable, continue metoprolol 25 mg b.i.d. Assessment & Plan (08/28/2022 6:26 PM MANAGER OF DATA): Blood pressure variable but generally controlled, continue Lopressor Assessment & Plan (08/17/2022 12:31 PM MANAGER OF DATA): BP elevated. Currently on no meds. Will add Lopressor 25mg BID & monitor. Assessment & Plan (08/14/2022 10:59 AM MANAGER OF DATA): BP fluctuating. Monitor, may need adjustment. Assessment [...] 07/03/2022 Assessment & Plan (10/30/2022 1:46 PM MANAGER OF DATA): Replace home linagliptin with SSI for now, can start basal/bolus regimen if glucose is persistently elevated. Assessment & Plan (09/22/2022 12:00 PM MANAGER OF DATA): Blood sugars have been labile during her stay, Tresiba have been restarted however then had hypoglycemic episodes. Patient will be discharging home on Tradjenta 5 mg daily. Recommend monitoring blood sugars at least b.i.d., follow-up with PCP for further medication management Assessment & Plan (09/11/2022 2:17 PM MANAGER OF DATA): BS 80-124. No requiring insulin & Tresiba remains on hold. Assessment & Plan (09/08/2022 1:33 PM MANAGER OF DATA): Morning BS lower - will place tresiba on hold. Continue SSI with meals Assessment & Plan (09/04/2022 2:00 PM MANAGER OF DATA): No hypoglycemic episodes, blood sugars ranging from 135-168, continue Tresiba 5 units q.h.s., sliding scale insulin with meals Assessment & Plan (09/01/2022 8:53 PM MANAGER OF DATA): BS remains controlled, continue tight glycemic control to improve wound healing. Continue tresiba 5 units qhs, SSI. Assessment & Plan (08/25/2022 11:45 AM MANAGER OF DATA): BS generally controlled with tresiba 5 units qhs, tradjenta, SSI. No documented hypoglycemic episodes. Assessment & Plan (08/17/2022 12:32 PM MANAGER OF DATA): BS 101-250. Continue Tradjenta, SSI, Will restart Tresiba at 5u nightly. Monitor. Assessment & Plan (08/13/2022 6:33 AM MANAGER OF DATA): BG 115-177. Continue SSI, may expect elevated BG secondary to prednisone starting today Assessment & Plan (08/11/2022 1:00 PM MANAGER OF DATA): BS 147-223. Currently on SSI but not requiring often. Assessment & Plan (08/07/2022 11:02 AM MANAGER OF DATA): BS stable with some elevation - will resume SSI for wound health. Monitor. Assessment & Plan (08/03/2022 12:31 PM MANAGER OF DATA): BS running 74-156 on only Tradjenta, continue [...] (07/05/2022): Added automatically from request for surgery [id number] Assessment & Plan (07/21/2022 5:33 AM CDT): [...] colitis Assessment & Plan (10/30/2022 1:38 PM MANAGER OF DATA): Continues to have diarrhea after 10 day course of fidoxamicin, will start long vancomycin taper. ID consulted. Assessment & Plan (09/22/2022 12:03 PM MANAGER OF DATA): Patient has had recurrent C diff, completed Dificid - symptoms have now improved, leukocytosis resolved Assessment & Plan (09/15/2022 12:09 PM MANAGER OF DATA): Looser stool improving, completes difacid today. Assessment & Plan (09/14/2022 9:49 AM MANAGER OF DATA): Pt still with loose stool - c diff results pending. Rn sent order for stool culture incorrectly - although results are negative. Assessment & Plan (09/11/2022 9:59 AM MANAGER OF DATA): Stool tested positive for C diff. for recurrent infection will start on fidaxomicin 200 mg x 10 days, id team has been informed. Continue IV fluid Assessment & Plan (09/08/2022 9:17 PM MANAGER OF DATA): Diarrhea has returned, will check for C diff, continue replacement fluids Assessment & Plan (08/26/2022 4:22 PM MANAGER OF DATA): Patient is not having frequent loose stools, she is completed vancomycin. Patient likely can come off isolation for C diff Assessment & Plan (08/25/2022 11:18 AM MANAGER OF DATA): Pt completed vancomycin. Continue to monitor for loose stool as pt remains on antibiotics. Assessment & Plan (08/03/2022 12:32 PM MANAGER OF DATA): Diarrhea stable. Continue PO vanc taper. Assessment [...] (10/30/2022): Added automatically from request for surgery [id number] Lower abdominal pain 08/14/2022 022 Assessment & Plan (08/17/2022 12:33 PM MANAGER OF DATA): Resolved. CT negative. Assessment & Plan (08/14/2022 10:55 AM MANAGER OF DATA): Patient having lower abd pain with n/v for >72d. She is afebrile, labs stable, LFTs normalized, no diarrhea, BS well controlled. Tenderness to abd on palpation. Will obtain CT of abd pelvis, will be unable to use contrast with kidneys currently. Continue PRN zofran PO & IV. Will obtain stat labs today + UA. Anasarca 08/04/2022 08/11/2022 Assessment & Plan (08/07/2022 11:06 AM MANAGER OF DATA): Resolving despite fluids. Assessment & Plan (08/06/2022 12:20 PM MANAGER OF DATA): Remains puffy in arms but d/t Cr [...] 12/17/2022 Assessment & Plan (09/13/2022 3:51 PM MANAGER OF DATA): Cx remains positive for MRSA. Final cx pending. Abx on hold d/t LANNY will need to discuss with ID next week on stop for abx d/t missing doses. Assessment & Plan (08/07/2022 11:06 AM MANAGER OF DATA): Saw ID yesterday, wants abx to continue until 09/08 with weekly labs. Assessment & Plan (08/06/2022 12:18 PM MANAGER OF DATA): Patient has f/u with ID today. Will confirm abx stop date after appt. Assessment & Plan (08/03/2022 12:34 PM MANAGER OF DATA): Continue abx, labs & ID f/u as scheduled. Appreciate their recommendations & consults. Assessment & Plan (07/21/2022 5:27 AM CDT): As in # OM R toe Assessment & Plan (07/17/2022 2:04 PM CDT): SEE above Osteomyelitis of great toe of right foot 07/03/2022 12/17/2022 Overview (07/05/2022): Added automatically from request for surgery [id number] Assessment & Plan (09/22/2022 12:03 PM MANAGER OF DATA): Wound continues to slowly improve with wound VAC in place. Completed IV antibiotics, to complete an additional 2 weeks of doxycycline per Infectious Disease. Has follow-up with Podiatry/wound care clinic in [place] Assessment & Plan (09/16/2022 1:28 PM MANAGER OF DATA): Foot/wound remained stable. Per daughter wound care clinic considering doing hyperbaric treatment once discharged from correction facility. Tolerating doxycycline without adverse reactions. Patient remains afebrile, without leukocytosis. Wound care nurse will start dressing change training/wound VAC training. We will work on starting wound VAC orders in anticipation for discharge early next week likely not before Wednesday09/22/2022. This was discussed with patient and daughter Assessment & Plan (09/15/2022 12:10 PM MANAGER OF DATA): Wound continues to slowly improve. Wound cx [...] planning Assessment & Plan (09/11/2022 10:02 AM MANAGER OF DATA): WBC normal. Blood culture negative. Telavancin currently on hold. Patient to start doxycycline from 09/23/2022. Continue wound care Assessment & Plan (09/08/2022 1:32 PM MANAGER OF DATA): Wound overall is stable, has new leukocytosis. Will check blood cultures, review wound in a.m. with wound care nurse when wound VAC is removed. Repeat cultures ordered We will hold Cipro due to worsening renal function, call out to pharmacist regarding Telavancin dosing - may need adjustment with worsening renal failure Notified ID WILDLIFE REFUGE SPECIALIST via secure chat Assessment & Plan (09/01/2022 8:45 PM MANAGER OF DATA): Pain controlled, wound stable. Encouraged pt dtr to discuss wound healing possibilities with podiatry and consider repeat tissue sampling after the current coarse of antibiotics. Continue wound vac, patient doing well with therapy. Assessment & Plan (08/28/2022 6:25 PM MANAGER OF DATA): Patient tolerating antibiotic change well. Reinforced need for improvement in documentation of meds given by nursing staff, 2nd dose due today of telavancin through 09/22/2022, Cipro and fluconazole continue. Patient has follow-up wound clinic appointment 08/31/2022, to take Assessment & Plan (08/26/2022 4:21 PM MANAGER OF DATA): Received call from Infectious Disease that they [...] her. Assessment & Plan (08/25/2022 11:26 AM MANAGER OF DATA): Pt missed podiatry follow up due to [...] up. Assessment & Plan (08/11/2022 9:14 AM MANAGER OF DATA): Outpt wound clinic f/u with Dr. Leon today. Continue wound vac MWF. Wear post-op shoe with WB, can heel-touch WB with transfers. F/u 08/24. Assessment & Plan (08/06/2022 12:19 PM MANAGER OF DATA): Wound clinic appt with Dr. Leon 08/10. Assessment & Plan (08/04/2022 3:28 PM MANAGER OF DATA): Was able to reach Dr. Leon. Wants to see in Wound Clinic. Admin working on arranging appt. Assessment & Plan (08/03/2022 12:40 PM MANAGER OF DATA): Have attempted to call Dr. Fuller office again today. No answer, message left. Photos loaded to [employer]. Concerns with foot. Will add on Lasix [...] (06/30/2022): Added automatically from request for surgery [id number] Assessment & Plan (09/18/2022 1:25 PM MANAGER OF DATA): Will be unable to skill patient next week. SS/Wound RN working on d/c changing wound vac and changing to BID dressing changes instead to help with skilling patient. Educated orders must come from Dr. Leon. Assessment & Plan (09/13/2022 3:51 PM MANAGER OF DATA): Patient has f/u podiatry in am. VPC (ventricular premature complex) 06/24/2022 08/17/2022 Elevated lactic acid level 1 Acute respiratory failure with hypoxia 07/17/2022 Abscess of right lower leg 0 12/17/2022 Assessment & Plan (12/03/2022 11:01 AM MANAGER OF DATA): Leg with minimal edema. Poyntelle have been removed. Okay to begin using the stump manager of radiology. Continue with the ampu shield to prevent trauma to the stump. Patient will call us back with any further questions or concerns. Assessment & Plan (10/30/2022 1:40 PM MANAGER OF DATA): Likely associated with known osteomyelitis with complicated [...] 10/29/2022 Added automatically from request for surgery [id number] Osteomyelitis of great toe o f right foot ([facility]) 07/03/2022 Added automatically from req uest for surgery [id number] Acute osteomyelitis of right ankle or foot ([facility]) 06/30/2022 Added automatically from req uest for surgery [id number] MRSA bacteremia 07/06/2022 PONV (postoperative nausea a [...] experiencing loneliness or isolatio n Never 03/08/2024 [facility] Utilities Answer Date Recorded In the [...] often do you attend chur ch or faith services? Never 03/27/2024 Do you belong to any clubs o r organizations such as sabianism groups, unions, fraternal or athletic groups, or [...] Recorded Patient Health Questionnaire-2 Score 0 11/26/2022 [facility] [place] [facility] - Occupational Stress [...] place to sleep or slept in a longterm (including now)? No 02/19/2023 Housing Stability Vital Sign Answer Christiano e Recorded In the last 12 months, was t here a time when you were not able to pay the mortgage or rent on time? No 03/27/2024 In the past 12 months, how m any times have you moved where you were living? 0 03/27/2024 At any time in the past 12 m [facility], were you homeless or living in a longterm (including now)? No 03/27/2024 Personal Safety Answer [...] on file Legal Sex Female 12:23 PM MANAGER OF DATA Gender Identity Not on file Sexual Orientation [...] 10/19/2018, 09/27/2007 Medical Devices Implanted Type Area Display Fabrication Supervisor Device Identifier Shelf Expiration Date Model / Serial / Lot [employer] Kit Fixation P[place]mont Secondary Swivelock 4.75x19.1mm Ar-1593-[id number] - [id number] Implanted:Qty: 1 on 07/27/2023 by Abdifatah Rooney MD at [facility] Other - see comments Right: Leg [employer] 05/27/2027 AR-1593-[id number] / / [id number] [employer] Swivelock C 4.75mm 19.1mm Closed Eyelet Vent [employer]mont Suture [id number] - [id number] Implanted:Qty: 1 on 07/27/2023 by Abdifatah Rooney MD at [facility] Other - see comments Right: Leg [employer] 10/27/2026 [id number] / / [id number] Procedures Procedure Name Priority Date/Time Associated Diagnosis [...] LAB BLOOD ORDERABLES Final Result [facility] [place] [facility] Department of Laboratories [place], [place] [id number] * Hemoglobin A1c (02/18/2023 1:35 PM CDT) Hgb A1C 4.8 4.0 - 5.6 % [facility] Estimated Average Glucose 91 mg/dL [facility] Comment: The ADA recommends reporting an estimated Average Glucose (eAG) with all Hemoglobin A1c results using the equation derived from a study of 507 normal and diabetic adults. Minority populations were underrepresented and children were not included. (Diabetes Care 31:1619-2088, 2008). The eAG is not equivalent to a fasting glucose. Blood 02/18/2023 1:35 PM CDT 02/18/2023 2:50 PM CDT Katie Hernandez MD LAB BLOOD ORDERABLES Final R esult [facility] ([place]) 1 [facility] Department [place] [address] * POCT lipid panel (04/29/2022 [...] Most Recently Relevant to Health Maintenance [place] [address] [place] [address] OPEN ACCESS [employer] OPEN ACCESS CIGNA OPEN ACCESS Advance Directives For more information, please contact: [phone] * Full Code (Latest Code Status on [...] 5:47 AM 11/16/2022 1:50 PM Care Teams Safety Spec Relationship Specialty Start Date End Date Federico Meza MD PCP - General Family Medicine 10/21/21 Matthew Leon DPM [address] [place] [address] Consulting Physician Foot and Ankle Surg 07/16/22
--- OUTSIDE RECORDS SUMMARY | 2025-07-27 11:36 | XMS_ITS | Encounter Summary ---
Author Organization [facility] Healthcare Address [address] [place] [address] Care Team Providers Care Tariff Compiling Clerk Name Role Phone Federico Meza MD Primary Care Provider + [phone] Matthew Leon DPM Unavailable [phone] Encounter Details Date Type Department Care Team (Late st Contact Info) Description 11/17/2022 Telephone [facility] Physical Medicine and Rehabilitation [address] [place] [address] Flavia Freeman, BARREL FILLER HEAD Social History Tobacco Use Types Packs/Day Years [...] How often do you attend chur or anglican services? Never 11/19/2022 Do you belong to any clubs o r organizations such as confucianist groups, unions, fraternal or athletic groups, or [...] staff should administer the PHQ-9) 2 11/19/2022 [facility] - Occupational Stress [...] place to sleep or slept in a residential (including now)? No 11/19/2022 Education Answer Date Recorded What is the highest level of school you have completed or the highest degree you have received? 11th grade 11/03/2022 Comments No Sex and Gender Information Value Date Recorded Sex Assigned at Not on file Legal Sex Female 12:23 PM HUMAN RESOURCES TRAINING MANAGER Gender Identity Not on file Sexual Orientation Not on file documented as of this encounter Last Filed Vital Signs Vital Sign Reading Time Taken Comments Blood Pressure - - Pulse - - Temperature - - Respiratory Rate - - Oxygen Saturation - - Inhaled Oxygen Concentration - - Weight 80.7 kg (178 lb) 11/17/2022 1:21 PM HUMAN RESOURCES TRAINING MANAGER Height 172.7 cm (5' 8) 11/17/2022 1:21 PM HUMAN RESOURCES TRAINING MANAGER Body Mass Index 27.06 11/17/2022 1:21 PM HUMAN RESOURCES TRAINING MANAGER documented in this encounter Functional Status * [...] little energy Several days 11/19/2022 12:51 PM HUMAN RESOURCES TRAINING MANAGER Radha Kwan MSW Poor appetite or overeating [...] at all 11/19/2022 12:51 PM Radha Aponte, PROTECTIVE OFFICER Moving or speaking so slowly that other [...] Flavia Freeman SLP - 11/17/2022 1:52 PM HUMAN RESOURCES TRAINING MANAGER [facility] Physical Medicine and Rehabilitation Preadmission [...] level of care. Patient is currently at [facility] . The patient is being referred [...] rehabilitation risks and benefits. Payor Source: Primary: [employer] Secondary:Authorization number [id number] Case discussed with Dr. Betancourt on 11/13/22 [...] Drinking: Not on file Patient's Preferred Language: Surinamese Cultural Requests During Hospitalization: none conveyed Acute [...] Acute osteomyelitis of right ankle or foot ([facility]) ([facility]) Type 2 diabetes mellitus with hypoglycemia, without long-term current use of insulin ([facility]) ([facility]) C. difficile colitis Peripheral arterial disease ([facility]) ([facility]) Primary hypertension Polyneuropathy associated with underlying disease ([facility]) ([facility]) Anxiety and depression Chronic renal failure, stage 4 (severe) ([facility]) ([facility] Cellulitis of right lower extremity Acute on chronic anemia Hyperkalemia COPD (chronic obstructive pulmonary disease) ([facility]) ([facility]) Resolved Problems: No resolved hospital problems. -Acute [...] hypoglycemia, without long-term current use of insulin ([facility]) ([facility]) Replace home linagliptin with SSI for now, can start basal/bolus regimen if glucose is persistentlyelevated. Past Medical History: ?? Abdominal distention ?? Arrhythmia ?? Bipolar disorder, unspecified ([facility]) ?? Chronic back pain ?? COPD (chronic obstructive pulmonary disease) ([facility]) ([facility]) ?? Depression ?? Diabetes mellitus ([facility]) ?? DEJESUS (dyspnea on exertion) ?? Foot [...] and had lots of questions. Reports the strip mill operator told him about a bone biopsy to [...] Current Attempt with Plan AND intent [facility] ER-based Safety Assessment: Risk Factors Stressors: Recent right leg amputation. Attempts/Self-injury: No Impulsivity:No Drug/Alcohol History:No Trauma History:No Access to firearms:No HI/Violence/Property destruction:No Legal: No Family Psych History:No Family History of suicide:No Protective Factors: Can handle stress well? Yes Presybeterian? Yes External: Social supports/ Therapeutic relationships: Yes [...] mild or moderate severity, unspecified CPT Codes: 80127 - Psychiatric Diagnostic Evaluation with Medical Services [...] the hospital?: No Discussed plan with onsite rock climbing team member: Yes Who Ben Gore [facility] 11/14/22: Nephrology Stable renal function [...] In /Aug when pt was at the [place] patient had elevations in creatinine up to [...] hypoglycemia, without long-term current use of insulin ([facility]) ([facility]) Continue Lantus 10 units qhs and lispro [...] Precautions/Restrictions: Falls Weight Bearing Precautions: NWB RLE [place] Suicide Severity Rating Scale: Allergies: Allergies Allergen [...] mg/mL (33.3 mg/mL as elemental magnesium) oral [id number] mL 30 mL oral Daily PRN Shruthi [...] flush 0.5-20 mL 0.5-20 mL intra-catheter Q8H PENDING SALE TO [facility] Shruthi Willis MD 10 mLat 11/17/22 0550 sodium chloride 0.9% flush 0.5-20 mL 0.5-20 mL intra-catheter PRN Shruthi Willis MD traZODone (DESYREL) tablet 150 mg 150 mg oral Nightly PRN Shruthi Willis MD 150 mg at 11/16/22 2203 [DISCONTINUED] benzocaine (HURRICAINE) 20 % mouth spray mouth/throat PRN Samuel, Sadie M., BULK SEALER 1 spray at 11/16/22 1555 [DISCONTINUED] lidocaine (XYLOCAINE) 20 mg/mL (2 %) preservative free injection intravenous PRN Samuel, Sadie M., BULK SEALER 100 mg at 11/16/22 1557 [DISCONTINUED] propofoL (DIPRIVAN) 10 mg/mL IV intravenous PRN Samuel, Sadie M., BULK SEALER 20 mg at 11/16/22 1600 [DISCONTINUED] sodium chloride 0.9% flush 5-10 mL 5-10 mL intra-catheter Q12H PENDING SALE TO [facility] Shruthi Willis MD 10 mL at 11/16/22 [...] transfers MIN-MOD A (11/17/2022 1:37 PM) Cognition/Communication/Swallowing: BARREL FILLER HEAD Cognition: wfl (11/17/2022 1:37 PM) BARREL FILLER HEAD Communication: wfl (11/17/2022 1:37 PM) Conditions requiring acute rehab and risk for complications: Gait dysfunction - risk for falls and further injury, fracture Diabetes - risk for hypoglycemic episodes Uncontrolled Hypertension - risk for stroke, stroke extension, AL Decreased mobility - Risk for Fall, skin [...] Rubi Betancourt MD at 11/17/2022 2:17 PM HUMAN RESOURCES TRAINING MANAGER N RESOURCES TRAINING MANAGER N RESOURCES TRAINING MANAGER Associated attestation - Rubi Betancourt MD - 11/17/2022 2:17 PM HUMAN RESOURCES TRAINING MANAGER Rehab Referral Decision: Approved I have reviewed [...] the intensive Inpatient rehabilitation program offered at [facility] . documented in this encounter Plan of Treatment Not on file documented as of this encounter Visit Diagnoses Not on filedocumented in this encounter Additional Health Concerns Infection Onset Date Last Indicated Resolved Time MRSA 07/03/2022 02/18/2023 08/17/2023 3:05 AM HUMAN RESOURCES TRAINING MANAGER C. difficile Comment:Flag applied in error. 11/23/2022 11/23/2022 1:59 PM CDT C. difficile suspected 03/24/2024 03/24/202403/24 11:04 PM CDT C. difficile 03/24/2024 03/24/2024 03/24/2025 7:26 PM CDT documented as of this encounter Care Teams Tariff Compiling Clerk Relationship Specialty Start Date End Date Federico Meza MD PCP - General Family Medicine 10/21/21 Matthew Leon DPM [address] [place] [address] Consulting Physician Foot and Ankle Surg 07/16/22 documented as of this encounter
--- OUTSIDE RECORDS SUMMARY | 2025-07-27 11:36 | XMS_ITS | Encounter Summary ---
Author Organization [facility] Healthcare Address [address] [place] [address] Care Team Providers Care Stock Ranch Supervisor Name Role Phone Federico Meza MD Primary Care Provider [phone] Matthew Leon DPM Unavailable [phone] Encounter Details Date Type Department Care Team (Late st Contact Info) Description 11/11/2022 Telephone [facility] Physical Medicine and Rehabilitation [address] [place] [address] Flavia Freeman, MANAGER OF PATIENT Social History Tobacco Use Types Packs/Day Years [...] How often do you attend chur or church services? Never 11/03/2022 Do you belong to any clubs o r organizations such as baptist groups, unions, fraternal or athletic groups, or [...] on file Legal Sex Female 12:23 PM ACQUISITION COST ESTIMATOR Gender Identity Not on file Sexual Orientation Not on file documented as of this encounter Plan of Treatment Not on file documented as of this encounter Visit Diagnoses Not on filedocumented in this encounter Additional Health Concerns Infection Onset Date Last Indicated Resolved Time MRSA 07/03/2022 02/18/2023 08/17/2023 3:05 AM ACQUISITION COST ESTIMATOR C. difficile Comment:Flag applied in error. 11/23/2022 11/23/2022 1:59 PM CDT C. difficile suspected 03/24/2024 03/24/202403/24 11:04 PM CDT C. difficile 03/24/2024 03/24/2024 03/24/2025 7:26 PM CDT documented as of this encounter Care Teams Stock Ranch Supervisor Relationship Specialty Start Date End Date Federico Meza MD PCP - General Family Medicine 10/21/21 Matthew Leon, CHAY [address] [place] [address] Consulting Physician Foot and Ankle Surg 07/16/22 documented as of this encounter
--- NOTE | 2025-07-27 13:59 | ECG_ITS ---
Test Date: 2025-07-27 14:06:49 Measurements Intervals [place] Rate: 77 P: 40 CA: 187 QRS: 30 QRSD: 114 T: 71 QT: 392 QTc: 445 Interpretive Statements SINUS RHYTHM INTRAVENTRICULAR CONDUCTION DELAY BORDERLINE ST-T WAVE ABNORMALITY- HIGH LATERAL LEADS BORDERLINE ECG Compared to ECG 05/23/2024 17:15:10 POSSIBLE ISCHEMIA NO LONGER PRESENT Electronically Signed On 07-27-2025 14:08:39 CDT by Jun Navarro D.O.
[2025-07-27 14:13] LABS: Hematocrit 30.2 % (37.0-47.0); Hemoglobin 9.5 g/dL (12.0-15.0); Immature Granulocyte Percent A 0.7 % (0-0.5); Lymphocytes Absolute Auto 1.89 K/mm3 (0.9-3.2); Mean Corpuscular HGB Conc 31.5 g/dl (32-36); Mean Corpuscular Hemoglobin 32.4 pg (26-34); Mean Corpuscular Volume 103.1 fl (80-100); Nucleated Red Blood Cells Absolute Auto 0.000 K/mm3 (0.0-0.012); Nucleated Red Blood Cells Perc 0.0 % (0.0-0.2); Platelet Count Result 169 k/mm3 (150-375); Red Blood Count 2.93 M/mm3 (4.2-5.4); White Blood Count 14.9 K/mm3 (4.5-10.0)
--- NOTE | 2025-07-27 14:28 | ED.GENADULT ---
HPI - General Adult General Chief complaint: Weakness Stated complaint: Weakness, Lethargy Time Seen by Provider: 07/27/25 14:03 Source: patient and family Limitations: altered mental status (confusion) History of Present Illness HPI narrative: Chief concern: Suspected urinary tract infection (UTI), progressive weakness, confusion, poor oral intake. Onset and course: Symptoms began approximately 2 weeks ago. Initial urine testing at Dr. Lima?s office on the reportedly negative. Subsequently evaluated by a urologist in the same building (not associated with hospital system); repeat testing last reportedly positive for UTI, with urine culture pending per family. Due to prior susceptibility to Clostridioides difficile infection, antibiotics were deferred pending culture results. Current symptoms: Patient and family report marked weakness, confusion (?dazed?), excessive somnolence, and poor appetite with inability to eat adequately. Reports right lower quadrant (RLQ) abdominal tenderness to palpation; denies severe abdominal pain. Stool reportedly ?black? per family description. Patient notes blood sugars have been ?actually really good.? Renal history: Known kidney failure. Dialysis not yet initiated; vascular access port has been placed. Nephrology appointment scheduled for Wednesday; specific hand expansion envelope maker not yet established per family. Electrolytes: Family reports recent hypokalemia; patient is taking oral potassium at home. Most recent phone communication suggested potassium ?coming back up,? but patient remains weak and confused. Related Data Home Medications ?Medication ?Instructions ?Recorded ?Confirmed ?Last Taken ?Type trazodone 150 mg tablet 150 mg PO HS PRN Insomnia 11/04/19 07/27/25 02/03/23 History hydralazine 25 mg tablet 25 mg PO TID 11/30/22 07/27/25 02/03/23 History brexpiprazole 2 mg tablet (Rexulti) 2 mg PO DAILY 03/03/24 07/27/25 Unknown History cholecalciferol (vitamin D3) 25 25 mcg PO DAILY 03/03/24 07/27/25 Unknown History mcg (1,000 unit) chewable tablet (Vitamin D3) promethazine 25 mg tablet 25 mg PO TID PRN Nausea 03/13/24 07/27/25 Unknown History cyanocobalamin (vitamin B-12) 50 50 mcg PO DAILY 07/25/24 07/27/25 Unknown History mcg tablet (Vitamin B-12) sertraline 100 mg tablet 100 mg PO DAILY 05/23/25 07/27/25 Unknown History bupropion HCl 300 mg 24 hr tablet, 300 mg PO DAILY 07/09/25 07/27/25 Unknown History extended release pantoprazole 40 mg tablet,delayed 40 mg PO 07/09/25 07/09/25 Unknown History release Allergies Allergy/AdvReac Type Severity Reaction Status Date / Time ceftriaxone Allergy Severe Rash Verified 07/27/25 11:38 adhesive Allergy Intermediate Itching/ Verified 07/27/25 11:38 SWELLING / RASH povidone-iodine Allergy Intermediate rash Verified 07/27/25 11:38 soap (From Betadine) Allergy Intermediate Rash Verified 07/27/25 11:38 Review of Systems Review of Systems: Constitutional: Positive for weakness, fatigue, somnolence. No fever reported. Neurologic: Positive for confusion. No focal deficits reported. Gastrointestinal: Poor appetite; RLQ abdominal tenderness. Stool described as black. Denies severe abdominal pain. Genitourinary: History and symptoms concerning for UTI; culture pending. No dysuria, frequency, or hematuria documented in interview. Endocrine: Blood sugars reported as well controlled per patient. Cardiovascular: No chest pain or palpitations reported. Respiratory: No shortness of breath or cough reported. Musculoskeletal: Generalized weakness; no focal joint pain reported. Skin: No rash reported. Hematologic: No bleeding or bruising reported beyond stool color concern. Psychiatric: Confusion as above; no agitation reported. [facility] Past Medical History Medical History Acute on chronic kidney failure Clostridium difficile colitis Amputation of leg UTI due to extended-spectrum beta lactamase (ESBL) producing Escherichia coli Application of prosthesis S/P fecal transplant 06/2023 Wound discharge Nausea and vomiting in adult Leg edema, left Anemia Stage 4 chronic kidney disease Overweight with body mass index (BMI) of 28 to 28.9 in adult Myalgia Inflammatory arthritis Microscopic colitis Adult BMI 31.0-31.9 kg/sq m Recurrent Clostridioides difficile infection Obese C. difficile diarrhea Gall bladder disease Allergies Hematochezia Abdominal adhesions Abdominal distention Abnormal colonoscopy Atelectasis of both lungs Carpal tunnel syndrome of left wrist Daytime hypersomnolence Diabetic foot infection Dyspnea on exertion Dysthymia Essential hypertension Hammertoes of both feet Hypovitaminosis D ILD (interstitial lung disease) Lactic acidemia Lymphedema MDD (major depressive disorder), recurrent episode, with atypical features Microalbuminuria due to type 2 diabetes mellitus Mixed hyperlipidemia Onychogryphosis Other screening mammogram PTSD (post-traumatic stress disorder) Peripheral polyneuropathy Pes cavus Proteinuria, unspecified Psychophysiological insomnia Pulmonary nodule Rash and nonspecific skin eruption Spondylosis of lumbar region without myelopathy or radiculopathy Tinea corporis Tinea unguium Tobacco use disorder Trigger finger of left thumb Type 2 diabetes mellitus with hyperglycemia, without long-term current use of insulin 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 History of blood transfusion Bipolar disorder Chronic back pain Fibromyalgia Post-menopausal Tubal Pneumonia Hyperlipidemia Surgical History Surgical History Status post insertion of dialysis catheter S/P partial hysterectomy S/P ventral herniorrhaphy Status post ORIF of fracture of ankle Right ankle History of hysterectomy History of tubal ligation History of breast biopsy left breast History of dilatation and curettage History of cholecystectomy History of umbilical hernia repair History of cardiac catheterization Family History Family History Father due to motor vehicle traffic accident Hypertension Bowel cancer Grandparent Diabetes mellitus Other Diabetes mellitus Mother due to motor vehicle traffic accident Sibling Club foot COVID-19 Other Family history of heart disease in male family member before age 55 Social History Social History Social History: The patient is and lives in [place] with her . She smoked 1.5 packs of cigarettes per day for many years, but for the last 6 months she has been smoking up to 3 packs of cigarettes per day due to stress. No excessive alcohol use. She denies illicit drug use. She designates her Will as her surrogate decision maker and she wishes to be a full code. 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 The patient is applying for disability. She is unable to work at this time. She cannot stand on her foot she has severe neuropathy. She has 2 children. Smoking packs per day: 1 Smoking cigarettes per day: 20.0 Years smoked: 40 Smoking pack-years: 40.00 Smoking status: Former smoker Tobacco type: cigarettes Second hand tobacco smoke exposure: Yes Smoking end date: 05/05/25 Additional smoking assessment comments: Alcohol intake: former Alcohol use details: USED A TEENAGER Substance use: former Substance use type: marijuana Other substance usage details: A TEENAGER Do You Feel Safe in your Home?: Yes Lack of Transportation: No Lack of Food: Never True Current Housing: I Have Housing Concerned About Future Housing: No Difficulty Paying Gas/Electric Bills: No Difficulty Paying for Meds: No Currently Unemployed: No Education: Decline to Answer Difficulty w/ Childcare or Family Care: No Living arrangements: with family Occupation/Education: retired 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 ENT:? Mucous membranes moist. CHEST: Clear to auscultation.? No respiratory distress. HEART: Regular rate and rhythm. ? Normal peripheral pulses. ABDOMEN: Soft, nondistended, RLQ tenderness to palpation without rebound or guarding EXTREMITIES: Normal range of motion. No peripheral edema. RLE amputation with prosthetic device SKIN: Warm dry normal color NEURO: Awake, drowsy, confused at times, generalized weakness without focal findings Course Reevaluation(s) Reevaluation #1: Patient was up to the commode to collect urine sample. Urine appeared very hazy and discolored, appeared more like chicken soup than urine. Attempted to guide patient back to her bed and she sat down on the bottom corner of the bed, unable to make it back to the side of the bed. Patient lifted back into bed by myself and a tech in the ER. Date: 07/27/25 Time: 16:35 Vital Signs Vital signs: Vital Signs Temperature 36.9 C 07/27/25 11:31 Pulse Rate 79 07/27/25 11:31 Respiratory Rate 18 07/27/25 11:31 Blood Pressure 138/96 H 07/27/25 11:31 Pulse Oximetry 100 07/27/25 11:31 Temperature 36.9 C 07/27/25 11:31 Pulse Rate 76 07/27/25 14:08 Respiratory Rate 18 07/27/25 11:31 Blood Pressure 138/96 H 07/27/25 11:31 Pulse Oximetry 100 07/27/25 11:31 Procedures ABG Interpretation ABG Interpretation 1: ABG Results: 07/27/25 15:50 Puncture Site Right radial ABG pH 7.095 L* ABG pCO2 21.2 L* ABG pO2 101.3 H ABG PO2/FiO2 Ratio 4.82 ABG HCO3 6.4 L ABG O2 Saturation 95.4 ABG O2 Content 14.3 L ABG Base Excess -21.6 A-a Gradient 23.0 Oxyhemoglobin 94.9 Total Hemoglobin 10.6 L O2 Delivery Device Room air O2 Liters/Min 0.0 FiO2 21 Interpretation: metabolic acidosis Additional Comments: Incomplete respiratory compensation Medical Decision Making MDM Narrative Medical decision making narrative: 60 year old female patient with a past medical history inclusive of worsening renal failure pending initiation of dialysis, diabetes, recurrent urinary tract infections with MDRO and recurrent C diff infections. Patient presented to the ER today with complaints of malaise fatigue confusion and generalized weakness. No focality of symptoms to suspect CVA. Patient and report that she was diagnosed with a urinary tract infection pending urine culture before starting antibiotics either 7 or 8 days ago, still no prescription for antibiotics. Patient not febrile but she is exhibiting symptoms of encephalopathy. Initial labs were drawn per protocol orders right as I saw the patient so additional labs had to be obtained after evaluation and abnormal chemistry results. Renal function severely depressed with an estimated GFR of 7 and a creatinine of 6.5. Carbon dioxide less than 5 on CMP. Ordered ABG which resulted with pH of 7.095, pCO2 of 21.2 indicating attempted respiratory compensation, normal pCO2 and HC03 of 6.4 with base excess of -21.6. Spoke to Anesthesiologist/Physician Dr. Huizar as below. Recommendations for IV fluids and bicarb containing fluids received. No guarantee of initiating dialysis but admission to IMU and repeating labs as well as treating UTI may turn her around enough to avoid starting dialysis yet. CT scan of the abdomen and pelvis obtained without contrast due to right lower quadrant tenderness. Findings of haziness around the bladder indicating likely cystitis. Was no obstructive uropathy. Appearance of urine extremely hazy, UA with multiple findings consistent with urinary tract infection including positive nitrites, 4+ urine bacteria, 3+ leukocyte esterase and greater than 100 wbc's. Initiated treatment with meropenem due to MDRO history and limited sensitivities from prior urine culture of E coli in the chart from last year. Patient also very concerned about recurrence C diff. this information was passed on to the hospitalist who accepted admission to the IMU. Spoke with pharmacy who recommended renal dosing meropenem 1 g Q 24 hours. Due to a high probability of clinically significant, life threatening deterioration, the patient required my highest level of preparedness to intervene emergently and I personally spent this critical care time directly and personally managing the patient. This critical care time included obtaining a history; examining the patient; pulse oximetry; ordering and review of studies; arranging urgent treatment with development of a management plan; evaluation of patient's response to treatment; frequent reassessment; and discussions with other providers. It was exclusive of separately billable procedures and treating other patients and teaching time. Please see Assessment and Plan section and the rest of the note for further information on patient assessment and treatment. Critical Care time: 50 minutes Differential Diagnosis Differential Diagnosis: UTI, metabolic encephalopathy, sepsis, acute on chronic renal failure Medical Records Medical records reviewed: Yes I reviewed the external patient's medical records. Medical records narrative: I reviewed prior labs and Nephrology note. Labs this month have showed metabolic acidosis with worsened renal function that was not properly referred on to nephrology. I spoke to Dr. Huizar with Nephrology who recalled discussion that patient wanted to delay initiating dialysis until after the Holidays if possible. Dr. Huizar recommended admission with IV fluids and sodium bicarb fluids, IMU seems appropriate. Vital Signs Vital Signs: Vital Signs Temperature 36.9 C 07/27/25 11:31 Pulse Rate 79 07/27/25 11:31 Respiratory Rate 18 07/27/25 11:31 Blood Pressure 138/96 H 07/27/25 11:31 Pulse Oximetry 100 07/27/25 11:31 Temperature 36.9 C 07/27/25 11:31 Pulse Rate 76 07/27/25 14:08 Respiratory Rate 18 07/27/25 11:31 Blood Pressure 138/96 H 07/27/25 11:31 Pulse Oximetry 100 10/31/25 11:31 Lab Data 07/27/25 14:05 07/27/25 14:39 Labs: Lab Results 07/27/25 07/27/25 07/27/25 Range/Units 14:05 14:39 15:06 WBC 14.9 H (4.5-10.0) K/mm3 RBC 2.93 L (4.2-5.4) M/mm3 Hgb 9.5 L (12.0-15.0) g/dL Hct 30.2 L (37.0-47.0) % MCV 103.1 H (80-100) fl MCH 32.4 (26-34) pg MCHC 31.5 L (32-36) g/dl RDW 15.8 H (11.5-14.5) % Plt Count 169 D (150-375) k/mm3 MPV 11.0 H (7.4-10.4) fl Immature Gran % (Auto) 0.7 H (0-0.5) % Neut % (Auto) 81.7 H (45.5-73.1) % Lymph % (Auto) 12.7 L (18.3-44.2) % Leake % (Auto) 4.4 (2.6-8.5) % Eos % (Auto) 0.4 (0-4.4) % Baso % (Auto) 0.1 L (0.2-1.2) % Lymph # (Auto) 1.89 (0.9-3.2) K/mm3 Leake # (Auto) 0.7 H (0.1-0.6) K/mm3 Eos # (Auto) 0.1 (0-0.3) K/mm3 Baso # (Auto) 0.0 (0.0-0.1) K/mm3 Abs Immat Gran (auto) 0.11 H (0.00-0.031) K/mm3 Absolute Neuts (auto) 12.1 H (1.3-6.7) K/mm3 Absolute Nucleated RBC 0.000 (0.0-0.012) K/mm3 Nucleated RBC % 0.0 (0.0-0.2) % Sodium 138 (137-145) mmol/L Potassium 3.5 (3.4-5.0) mmol/L Chloride 117 H (98-107) mmol/L Carbon Dioxide < 5 L (22-30) mmol/L Anion Gap (4-12) mmol/L BUN 40 H (7-17) mg/dL Creatinine 6.50 H (0.7-1.0) mg/dL Estim Creat Clear Calc Not Reportable Estimated GFR 7 L (59 - ) Glucose 99 (65-110) mg/dL Lactic Acid (0.7-2.0) mmol/L Calcium 8.5 (8.4-10.2) mg/dL Magnesium (1.6-2.3) mg/dL Total Bilirubin 0.4 (0.2-1.3) mg/dL AST 26 (14-36) U/L ALT 17 (6-35) U/L Alkaline Phosphatase 165 H (38-126) U/L Ammonia (9-30) umol/L Total Protein 7.0 (6.3-8.2) g/dL Albumin 3.7 (3.5-5.1) g/dL Beta-Hydroxybutyrate/Acetoacetate Urine Color Urine Appearance Urine pH Ur Specific [place] Urine Protein Urine Glucose (UA) Urine Ketones Ur Blood (Man) Urine Nitrate Urine Bilirubin Urine Urobilinogen Leukocyte Esterase Rfl Influenza A (RT-PCR) Negative (Negative) Influenza B (RT-PCR) Negative (Negative) RSV (RT-PCR) Negative (Negative) SARS-CoV-2 RNA (RT-PCR) Negative (Negative) 07/27/25 07/27/25 07/27/25 Range/Units 16:19 16:20 16:23 WBC (4.5-10.0) K/mm3 RBC (4.2-5.4) M/mm3 Hgb (12.0-15.0) g/dL Hct (37.0-47.0) % MCV (80-100) fl MCH (26-34) pg MCHC (32-36) g/dl RDW (11.5-14.5) % Plt Count (150-375) k/mm3 MPV (7.4-10.4) fl Immature Gran % (Auto) (0-0.5) % Neut % (Auto) (45.5-73.1) % Lymph % (Auto) (18.3-44.2) % Leake % (Auto) (2.6-8.5) % Eos % (Auto) (0-4.4) % Baso % (Auto) (0.2-1.2) % Lymph # (Auto) (0.9-3.2) K/mm3 Leake # (Auto) (0.1-0.6) K/mm3 Eos # (Auto) (0-0.3) K/mm3 Baso # (Auto) (0.0-0.1) K/mm3 Abs Immat Gran (auto) (0.00-0.031) K/mm3 Absolute Neuts (auto) (1.3-6.7) K/mm3 Absolute Nucleated RBC (0.0-0.012) K/mm3 Nucleated RBC % (0.0-0.2) % Sodium (137-145) mmol/L Potassium (3.4-5.0) mmol/L Chloride (98-107) mmol/L Carbon Dioxide (22-30) mmol/L Anion Gap (4-12) mmol/L BUN (7-17) mg/dL Creatinine (0.7-1.0) mg/dL Estim Creat Clear Calc Estimated GFR (59 - ) Glucose (65-110) mg/dL Lactic Acid 0.7 (0.7-2.0) mmol/L Calcium (8.4-10.2) mg/dL Magnesium 1.7 (1.6-2.3) mg/dL Total Bilirubin (0.2-1.3) mg/dL AST (14-36) U/L ALT (6-35) U/L Alkaline Phosphatase (38-126) U/L Ammonia 15 (9-30) umol/L Total Protein (6.3-8.2) g/dL Albumin (3.5-5.1) g/dL Beta-Hydroxybutyrate/Acetoacetate Pending Urine Color Pending Urine Appearance Pending Urine pH Pending Ur Specific [place] Pending Urine Protein Pending Urine Glucose (UA) Pending Urine Ketones Pending Ur Blood (Man) Pending Urine Nitrate Pending Urine Bilirubin Pending Urine Urobilinogen Pending Leukocyte Esterase Rfl Pending Influenza A (RT-PCR) (Negative) Influenza B (RT-PCR) (Negative) RSV (RT-PCR) (Negative) SARS-CoV-2 RNA (RT-PCR) (Negative) ABG Data ABG results: 07/27/25 15:50 Puncture Site Right radial ABG pH 7.095 L* ABG pCO2 21.2 L* ABG pO2 101.3 H ABG PO2/FiO2 Ratio 4.82 ABG HCO3 6.4 L ABG O2 Saturation 95.4 ABG O2 Content 14.3 L ABG Base Excess -21.6 A-a Gradient 23.0 Oxyhemoglobin 94.9 Total Hemoglobin 10.6 L O2 Delivery Device Room air O2 Liters/Min 0.0 FiO2 21 Attestation: I personally reviewed and interpreted this ABG as follows: Interpretation: metabolic acidosis with ineffective respiratory compensation attempted ECG Data EKG #1: Attestation: I personally reviewed and interpreted this ECG as follows: ECG completion date: 07/27/25 ECG completion time: 14:06 Prior ECG tracings: available for review Interpretation: Sinus rhythm rate of 77 CT interval 187 QRS duration 114 QTC 445 QRS axis 30? no STEMI Critical Care Time Critical Care Time Critical Care Time: Yes Total Critical Care Time: 50 Discharge Plan Discharge Clinical Impression: Metabolic acidosis, Generalized weakness, UTI (urinary tract infection) Renal failure (ARF), acute on chronic Qualifiers: Acute renal failure type: unspecified Chronic kidney disease stage: stage 5 (GFR < 15), not on chronic dialysis Qualified Code(s): N17.9 - Acute kidney failure, unspecified; N18.5 - Chronic kidney disease, stage 5 Encephalopathy Qualifiers: Encephalopathy type: toxic metabolic Qualified Code(s): G92.8 - Other toxic encephalopathy Patient Disposition: Acute Care Hospital Condition: Serious Patient Language: Cymraes Prescriptions: No Action (DME) Dexcom G7 Property Clerk Misc See Rx Instructions .ROUTE .MEDSUPPLY Qty: 1 0RF Rx Instructions: Will use smartphone hydralazine 25 mg tablet 25 mg PO TID insulin degludec [Tresiba FlexTouch U-200] 200 unit/mL (3 mL) insulin pen 12 unit subcut QHS Qty: 9 3RF promethazine 25 mg tablet 25 mg PO TID PRN (Reason: Nausea) albuterol sulfate 90 mcg/actuation HFA aerosol inhaler 2 inh inhalation Q6H PRN (Reason: shortness of breath or wheezing) Qty: 8.5 0RF pantoprazole 40 mg tablet,delayed release (DR/EC) 40 mg PO bupropion HCl 300 mg tablet extended release 24 hr 300 mg PO DAILY sodium bicarbonate 650 mg tablet 650 mg PO BID Qty: 60 6RF sertraline 100 mg tablet 100 mg PO DAILY trazodone 150 mg Tablet 150 mg PO HS PRN (Reason: Insomnia) Vitamin B-12 50 mcg Tablet 50 mcg PO DAILY (DME) pen needle, diabetic [BD Ultra-Fine Erika Pen Needle] 32 gauge x 5/32 needle See Rx Instructions .Route Qty: 600 4RF Rx Instructions: Use to administer insulin 4 times a day furosemide 20 mg tablet See Rx Instructions .ROUTE .COMPLEX Qty: 90 3RF Dose Instruction: TAKE 1 TABLET BY MOUTH IN THE MORNING Rx Instructions: TAKE 1 TABLET BY MOUTH IN THE MORNING (DME) Dexcom G7 Sensor Device See Rx Instructions .ROUTE .COMPLEX Qty: 9 1RF Dose Instruction: USE TO MONITOR GLUCOSE (CHANGE SENSOR EVERY 10 DAYS) Rx Instructions: USE TO MONITOR GLUCOSE (CHANGE SENSOR EVERY 10 DAYS) atorvastatin 10 mg tablet See Rx Instructions .ROUTE .COMPLEX Qty: 90 1RF Dose Instruction: Take 1 tablet by mouth once daily Rx Instructions: Take 1 tablet by mouth once daily Humalog KwikPen Insulin 200 unit/mL (3 mL) insulin pen 4 unit subcut TIDWM MDD 25 Qty: 24 1RF Rx Instructions: 4 units premeal +SSI 150-200: 1 units 201-250: 2 units 251-300: 3 units 301-350: 4 units 351-400: 5 units >401: 6 units Max Daily Dose 25 units once daily gabapentin 300 mg capsule See Rx Instructions PO .COMPLEX Qty: 120 1RF Rx Instructions: 600mg in the AM, 300mg in afternoon, and 300mg QHS orally nicotine [Nicoderm CQ] 21 mg/24 hr patch 24 hour 1 patch transdermal DAILY Qty: 28 0RF potassium chloride [Klor-Con M20] 20 mEq tablet,ER particles/crystals 20 meq PO BID Qty: 14 1RF cholecalciferol (vitamin D3) [Vitamin D3] 25 mcg (1,000 unit) Tablet,Chewable 25 mcg PO DAILY Rexulti 2 mg tablet 2 mg PO DAILY Follow-up/Referrals: Federico Meza MD [Primary Care Provider, Family Practice] Time of Disposition: 17:10
--- OUTSIDE RECORDS SUMMARY | 2025-07-27 14:57 | XMS_ITS | Encounter Summary ---
Author Organization [facility] Healthcare Address [address] [place] [address] Care Team Providers Care Quarry Equipment Operator Name Role Phone Federico Meza MD Primary Care Provider + [phone] Matthew Leon DPM Unavailable [phone] Encounter Details Date Type Department Care Team (Late st Contact Info) Description 11/11/[address] [facility] Physical Medicine and Rehabilitation [address] [place] [address] Flavia Freeman, JITTERBUG OPERATOR Social History Tobacco Use Types Packs/Day Years [...] How often do you attend chur or zoroastrian services? 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 difficile Comment:Flag applied in error. 11/23/2022 11/23/2022 1:59 PM CDT C. difficile suspected 03/24/2024 03/24/202403/24 11:04 PM CDT C. difficile 03/24/2024 03/24/2024 03/24/2025 7:26 PM CDT documented as of this encounter Care Teams Quarry Equipment Operator Relationship Specialty Start Date End Date Federico Meza MD PCP - General Family Medicine 10/21/21 Matthew Leon, [address] [place] [address] Consulting Physician Foot and Ankle Surg 07/16/22 documented as of this encounter
--- OUTSIDE RECORDS SUMMARY | 2025-07-27 14:57 | XMS_ITS | Clinical Summary ---
Author Organization [facility] Jamison Tejeda Address [address] [place] [address] Care Team Providers Care International Marketing Manager Name Role Phone Federico Meza MD Primary Care Provider [phone] Allergies Active Allergy Reactions Criticality Noted Date [...] on file Legal Sex Female 10:15 AM SAS PROGRAMMER REMOTE Gender Identity Not on file Sexual Orientation Not on file Last Filed Vital Signs Vital Sign Reading Time Taken Comments Blood Pressure 132/73 10/25/2024 2:47 PM SAS PROGRAMMER REMOTE Pulse 81 10/25/2024 2:47 PM SAS PROGRAMMER REMOTE Temperature 36.7 C (98.1 F) 10/25/2024 2:47 PM SAS PROGRAMMER REMOTE Respiratory Rate 15 10/25/2024 2:47 PM SAS PROGRAMMER REMOTE Oxygen Saturation 94% 10/25/2024 2:47 PM SAS PROGRAMMER REMOTE Inhaled Oxygen Concentration - - Weight 88.1 kg (194 lb 3.2 oz) 10/25/2024 2:47 P M SAS PROGRAMMER REMOTE Height 172.7 cm (5' 8) 09/22/2024 1:13 PM SAS PROGRAMMER REMOTE Body Mass Index 29.53 09/22/2024 1:13 PM SAS PROGRAMMER REMOTE Plan of Treatment Health Maintenance Due Date [...] (2 - Td or Tdap) 10/19/2028 Insurance [facility] C20 Care Teams International Marketing Manager Relationship Specialty Start Date End Date Federico Meza MD [address] [place] [id number] PCP - General Family Practice 09/12/24
--- OUTSIDE RECORDS SUMMARY | 2025-07-27 14:57 | XMS_ITS | Encounter Summary ---
Author Organization [facility] Healthcare Address [address] [place] [address] Care Team Providers Care Food Storeroom Clerk Name Role Phone Federico Meza MD Primary Care Provider [phone] Matthew Leon DPM Unavailable [phone] Encounter Details Date Type Department Care Team (Late st Contact Info) Description 11/17/2022 Telephone [facility] Physical Medicine and Rehabilitation [address] [place] [address] Flavia Freeman, SHRINKER Social History Tobacco Use Types Packs/Day Years [...] How often do you attend chur or episcopal services? Never 11/19/2022 Do you belong to any clubs o r organizations such as spiritism groups, unions, fraternal or athletic groups, or [...] place to sleep or slept in a chcf (including now)? No 11/19/2022 Education Answer Date Recorded What is the highest level of school you have completed or the highest degree you have received? 11th grade 11/03/2022 Comments No Sex and Gender Information Value Date Recorded Sex Assigned at Not on file Legal Sex Female 12:23 PM MORGUE LIBRARIAN Gender Identity Not on file Sexual Orientation Not on file documented as of this encounter Last Filed Vital Signs Vital Sign Reading Time Taken Comments Blood Pressure - - Pulse - - Temperature - - Respiratory Rate - - Oxygen Saturation - - Inhaled Oxygen Concentration - - Weight 80.7 kg (178 lb) 11/17/2022 1:21 PM MORGUE LIBRARIAN Height 172.7 cm (5' 8) 11/17/2022 1:21 PM MORGUE LIBRARIAN Body Mass Index 27.06 11/17/2022 1:21 PM MORGUE LIBRARIAN documented in this encounter Functional Status * [...] little energy Several days 11/19/2022 12:51 PM MORGUE LIBRARIAN Radha Kwan MSW Poor appetite or overeating [...] at all 11/19/2022 12:51 PM Radha Aponte, ION IMPLANT MACHINE OPERATOR Moving or speaking so slowly that other [...] Flavia Freeman SLP - 11/17/2022 1:52 PM MORGUE LIBRARIAN [facility] Physical Medicine and Rehabilitation Preadmission Screening [...] level of care. Patient is currently at [facility] . The patient is being referred [...] rehabilitation risks and benefits. Payor Source: Primary: [employer] Secondary:Authorization number [id number] Case discussed with Dr. Betancourt on 11/13/22 [...] Drinking: Not on file Patient's Preferred Language: Rwandan Cultural Requests During Hospitalization: none conveyed Acute [...] Acute osteomyelitis of right ankle or foot ([facility]/HCC) ([facility]) Type 2 diabetes mellitus with hypoglycemia, without long-term current use of insulin ([facility]) ([facility]) C. difficile colitis Peripheral arterial disease ([facility]) ([facility]) Primary hypertension Polyneuropathy associated with underlying disease ([facility]) ([facility]) Anxiety and depression Chronic renal failure, stage 4 (severe) ([facility]) ([facility]) Cellulitis of right lower extremity Acute on chronic anemia Hyperkalemia COPD (chronic obstructive pulmonary disease) ([facility]/HCC) ([facility]) Resolved Problems: No resolved hospital problems. -Acute [...] hypoglycemia, without long-term current use of insulin ([facility]) ([facility]) Replace home linagliptin with SSI for now, can start basal/bolus regimen if glucose is persistentlyelevated. Past Medical History: ?? Abdominal distention ?? Arrhythmia ?? Bipolar disorder, unspecified ([facility]) ?? Chronic back pain ?? COPD (chronic obstructive pulmonary disease) ([facility]/HCC) ([facility]) ?? Depression ?? Diabetes mellitus ([facility]) ?? DEJESUS (dyspnea on exertion) ?? Foot [...] and had lots of questions. Reports the cutter finisher told him about a bone biopsy to [...] (5-6) Current Attempt with Plan AND intent [facility]-based Safety Assessment: Risk Factors Stressors: Recent right leg amputation. Attempts/Self-injury: No Impulsivity:No Drug/Alcohol History:No Trauma History:No Access to firearms:No [place]/Violence/Property destruction:No Legal: No Family Psych History:No Family History of suicide:No Protective Factors: Can handle stress well? Yes Episcopal? Yes External: Social supports/ Therapeutic relationships: Yes [...] mild or moderate severity, unspecified CPT Codes: 45635 - Psychiatric Diagnostic Evaluation with Medical Services [...] the hospital?: No Discussed plan with onsite instrument repairer steam plant: Yes Who Ben Gore [facility] 11/14/22: Nephrology Stable renal function and [...] In /Aug when pt was at the [place] patient had elevations in creatinine up to [...] hypoglycemia, without long-term current use of insulin ([facility]) ([facility]) Continue Lantus 10 units qhs and lispro [...] Precautions/Restrictions: Falls Weight Bearing Precautions: NWB RLE [place] Suicide Severity Rating Scale: Allergies: Allergies Allergen [...] mg/mL (33.3 mg/mL as elemental magnesium) oral [id number] mL 30 mL oral Daily PRN Shruthi [...] flush 0.5-20 mL 0.5-20 mL intra-catheter Q8H [facility] Shruthi Willis MD 10 mLat 11/17/22 0550 sodium chloride 0.9% flush 0.5-20 mL 0.5-20 mL intra-catheter PRN Shruthi Willis MD traZODone (DESYREL) tablet 150 mg 150 mg oral Nightly PRN Shruthi Wilils MD 150 mg at 11/16/22 2203 [DISCONTINUED] benzocaine (HURRICAINE) 20 % mouth spray mouth/throat PRN Samuel, Sadie M., GUEST SERVICE MANAGER 1 spray at 11/16/22 1555 [DISCONTINUED] lidocaine (XYLOCAINE) 20 mg/mL (2 %) preservative free injection intravenous PRN Samuel, Sadie M., GUEST SERVICE MANAGER 100 mg at 11/16/22 1557 [DISCONTINUED] propofoL (DIPRIVAN) 10 mg/mL IV intravenous PRN Samuel, Sadie M., GUEST SERVICE MANAGER 20 mg at 11/16/22 1600 [DISCONTINUED] sodium chloride 0.9% flush 5-10 mL 5-10 mL intra-catheter Q12H [facility] Shruthi Willis MD 10 mL at 11/16/22 [...] transfers MIN-MOD A (11/17/2022 1:37 PM) Cognition/Communication/Swallowing: SHRINKER Cognition: wfl (11/17/2022 1:37 PM) SHRINKER Communication: wfl (11/17/2022 1:37 PM) Conditions requiring acute rehab and risk for complications: Gait dysfunction - risk for falls and further injury, fracture Diabetes - risk for hypoglycemic episodes Uncontrolled Hypertension - risk for stroke, stroke extension, MD Decreased mobility - Risk for Fall, skin [...] Rubi Betancourt MD at 11/17/2022 2:17 PM MORGUE LIBRARIAN UE LIBRARIAN UE LIBRARIAN Associated attestation - Rubi Betancourt MD - 11/17/2022 2:17 PM MORGUE LIBRARIAN Rehab Referral Decision: Approved I have reviewed [...] the intensive Inpatient rehabilitation program offered at [facility] . documented in this encounter Plan of Treatment Not on file documented as of this encounter Visit Diagnoses Not on filedocumented in this encounter Additional Health Concerns Infection Onset Date Last Indicated Resolved Time MRSA 07/03/2022 02/18/2023 08/17/2023 3:05 AM MORGUE LIBRARIAN C. difficile Comment:Flag applied in error. 11/23/2022 11/23/2022 1:59 PM CDT C. difficile suspected 03/24/2024 03/24/202403/24 11:04 PM CDT C. difficile 03/24/2024 03/24/2024 03/24/2025 7:26 PM CDT documented as of this encounter Care Teams Food Storeroom Clerk Relationship Specialty Start Date End Date Federico Meza MD PCP - General Family Medicine 10/21/21 Matthew Leon DPM [address] [place] [address] Consulting Physician Foot and Ankle Surg 07/16/22 documented as of this encounter
--- OUTSIDE RECORDS SUMMARY | 2025-07-27 14:57 | XMS_ITS | Encounter Summary ---
Author Organization [facility] Address [address] [place] [address] Care Team Providers Care Pulmonologist Name Role Phone Federico Meza MD Primary Care Provider [phone] Encounter Details Date Type Department Care Team [...] on file Legal Sex Female 10:15 AM GAS METER INSTALLER Gender Identity Not on file Sexual Orientation Not on file documented as of this encounter Plan of Treatment Not on file documented as of this encounter Visit Diagnoses Not on filedocumented in this encounter Care Teams Pulmonologist Relationship Specialty Start Date End Date Federico Meza MD [address] [place] [address] PCP - General Family Practice 09/12/24 documented as of this encounter
--- OUTSIDE RECORDS SUMMARY | 2025-07-27 14:57 | XMS_ITS | Clinical Summary ---
Author Organization [facility] Address [address] [address] Phone Care Team Providers Care Osd Clerk Name Role Phone Chase Leigh MD Primary [...] (COMPREHENSIVE METABOLIC PANEL) Today 10/28/2015 1:20 PM BRASS PICKLER Type 2 diabetes mellitus without complication (HCC) HEMOGLOBIN A1C W/ ESTIMATED GLUCOSE Routine 10/28/2015 1:20 PM BRASS PICKLER Type 2 diabetes mellitus without complication (HCC) HM COLONOSCOPY Routine 05/08/2015 from Last 3 Months or Most Recently Relevant to Health Maintenance Results * HEMOGLOBIN A1C W/ ESTIMATED GLUCOSE (10/28/2015 1:20 PM BRASS PICKLER) HGB-A1C 6.3 4.4 - 6.4 % 10/28/2015 4:15 PM BRASS PICKLER [facility] Est Average Glucose 134.1 mg/dL 10/28/2015 4:15 PM BRASS PICKLER [facility] Blood specimen (specimen) Venipuncture / Unknown 10/28/2015 1:20 PM BRASS PICKLER 10/28/2015 1:24 PM BRASS PICKLER Narrative [facility] - 10/28/2015 4:15 PM BRASS PICKLER HEMOGLOBIN A1C: DIABETIC PATIENTS: WELL-CONTROLLED: 6.2 - 7.0 INTERMEDIATE WELL-CONTROLLED: 7.0 - 9.0 POORLY-CONTROLLED: >9.0 us Mart Harris MD CHEMISTRY ORDERABLES Smita rasmussen Result [facility] [address] [place] [address] * (ABNORMAL) CMP (COMPREHENSIVE METABOLIC PANEL) (10/28/2015 1:20 PM BRASS PICKLER) Pathologist [facility] SODIUM 138 131 - 143 mmol/L 10/28/2015 4:28 PM BRASS PICKLER [facility] POTASSIUM 4.0 3.5 - 5.1 mmol/L 10/28/2015 4:28 PM BRASS PICKLER [facility] CHLORIDE 99(L) 100 - 110 mmol/L 10/28/2015 4:28 PM BRASS PICKLER [facility] CO2, VENOUS 27 22 - 32 mmol/L 10/28/2015 4:28 PM BRASS PICKLER [facility] ANION GAP 16.0 8.0 - 20.0 mmol/L 10/28/2015 4:28 PM BRASS PICKLER [facility] GLUCOSE 117(H) 70 - 105 mg/dL 10/28/2015 4:28 PM [facility] BUN 7(L) 10 - 31 mg/dL 10/28/2015 4:28 PM [facility] CREATININE, BLOOD 0.60 0.60 - 1.30 mg/dL 10/28/2015 4:28 PM [facility] BUN/CREATININE RATIO 12 12 - 20 ratio 10/28/2015 4:28 PM [facility] TOTAL PROTEIN 7.6 6.0 - 8.3 g/dL 10/28/2015 4:28 PM [facility] ALBUMIN 4.4 3.5 - 5.2 g/dL 10/28/2015 4:28 PM [facility] A/G RATIO 1.4 1.0 - 2.0 10/28/2015 4:28 PM [facility] CALCIUM 9.7 8.9 - 10.3 mg/dL 10/28/2015 4:28 PM [facility] T BILI 0.5 0.3 - 1.2 mg/dL 10/28/2015 4:28 PM [facility] SGOT (AST) 25 1 - 32 U/L 10/28/2015 4:28 PM [facility] SGPT (ALT) 19 1 - 33 U/L 10/28/2015 4:28 PM [facility] ALKALINE PHOSPHATASE 98 35 - 105 U/L 10/28/2015 4:28 PM [facility] GFR, EST. NONAFRICAN >60 >=60 10/28/2015 4:28 PM [facility] GFR, EST. >60 >=60 10/28/2015 4:28 PM [facility] Comment: Creatinine Clearance is the preferred criteria for selecting drug dose adjustments in renally impaired patients. The GFR is provided as additional pertinent clinical information. GFR is reported in mL/min/1.73 sq m. Blood specimen (specimen) Venipuncture / Unknown 10/28/2015 1:20 PM BRASS PICKLER 10/28/2015 1:24 PM BRASS PICKLER us Mart Harris MD CHEMISTRY ORDERABLES Smita rasmussen Result [facility] [address] [place] [address] * HM COLONOSCOPY (05/08/2015) us Yuan Bates MD PROCEDURE/MINOR SURGICAL ORDERAB LES Final Result from Last 3 Months or Most Recently Relevant to Health Maintenance Insurance MEDICARE C [employer] Care Teams Osd Clerk Relationship Specialty Start Date End Date Cahse Leigh MD [address] [place], [place] [id number] PCP - General Family Medicine 02/03/18
--- OUTSIDE RECORDS SUMMARY | 2025-07-27 14:57 | XMS_ITS | Clinical Summary ---
Author Organization [facility] [address] Address [address] [place] [address] Care Team Providers Care Professional Employer Consultant Name Role Phone Federico Meza MD Primary Care Provider + [phone] Matthew Leon DPM Unavailable [phone] Allergies Active Allergy Reactions Criticality Noted [...] 10/30/2022 Assessment & Plan (10/30/2022 1:44 PM SENIOR LEAD PROJECT MANAGER): Multifactorial from CKD stage 4 and acute [...] 10/30/2022 Assessment & Plan (10/30/2022 1:42 PM SENIOR LEAD PROJECT MANAGER): Potassium level 5.7 on presentation, improved to [...] 2.13 Assessment & Plan (09/22/2022 12:02 PM SENIOR LEAD PROJECT MANAGER): Continue to encourage p.o. fluid intake, creatinine increased to over 5, has now returned back to baseline around 3.2 Assessment & Plan (09/15/2022 12:08 PM SENIOR LEAD PROJECT MANAGER): Renal function slowly improving, continue oral fluid intake. Assessment & Plan (09/14/2022 9:47 AM SENIOR LEAD PROJECT MANAGER): Cr remains high, adding more IVF with potassium supplement added also. Follow daily labs. Antibiotics remain on hold 2/2 renal function Assessment & Plan (09/11/2022 2:21 PM SENIOR LEAD PROJECT MANAGER): Cr continues to improve. Vivativ remains on hold, unsure on restarting, still above current baseline since admission. Receiving IVF today, 3rd bag. Recheck labs Wednesday. Assessment & Plan (09/11/2022 10:00 AM SENIOR LEAD PROJECT MANAGER): Creatinine improved from 5.10-5 today. Continue IV fluid. Will repeat renal function a.m.. If creatinine worsens, may consider transferring patient to ER Assessment & Plan (09/08/2022 1:20 PM SENIOR LEAD PROJECT MANAGER): Patient with acute change in creatinine up to 5.0, IV fluids initiated, we will repeat labs in a.m. encouraged p.o. fluid intake if possible. If patient's blood pressure changes, has any other clinical decline would recommend returning to emergency department for nephrology evaluation. COVID 08/25/2022 Assessment & Plan (09/22/2022 12:04 PM SENIOR LEAD PROJECT MANAGER): Diagnosed with COVID on 07/03/2022, again positive on 08/22/2022 but patient was asymptomatic and did not require any further treatment. Continue supportive care Assessment & Plan (09/08/2022 1:24 PM SENIOR LEAD PROJECT MANAGER): Clinical change with increased rhonchi, sats stable but will check CXR with new leukocytosis. Patient originally diagnosed with COVID on 07/03/2022 underwent treatment during hospital stay then. Had a new positive test 08/22/2022 on routine facility testing, has chronic congested cough but otherwise had no new symptoms. Assessment & Plan (09/01/2022 8:50 PM SENIOR LEAD PROJECT MANAGER): Pt asymptomatic.Requesting repeat testing. Pt comes off isolation in am, so repeat testing is not necessary. Continue supportive care Assessment & Plan (08/26/2022 4:23 PM SENIOR LEAD PROJECT MANAGER): Patient reports that she did have a [...] days Assessment & Plan (08/25/2022 11:35 AM SENIOR LEAD PROJECT MANAGER): Pt diagnosed with COVID 08/22 on routine facility testing, pt asymptomatic at present. Pt previously diagnosed with COVID 07/03/22 - so doubt this is a new infection. Will continue to offer supportive care. Gross hematuria 08/25/2022 Assessment & Plan (08/27/2022 11:48 AM SENIOR LEAD PROJECT MANAGER): UA ordered for Wednesday but no results - have notified nursing and asked to collect. Assessment & Plan (08/25/2022 11:54 AM SENIOR LEAD PROJECT MANAGER): Check UA - h/h lower, not lenora blood. Pt is on heparin - will place on hold for now. Other specified anemias 08/25/2022 Assessment & Plan (09/22/2022 12:02 PM SENIOR LEAD PROJECT MANAGER): H&H continues to improve, did receive some Epogen during her stay. Continue iron supplementation Assessment & Plan (09/14/2022 9:48 AM SENIOR LEAD PROJECT MANAGER): H/H lower, will give epo today, recheck in am, may need transfusion Assessment & Plan (09/11/2022 2:23 PM SENIOR LEAD PROJECT MANAGER): Hmg 6.9. Transfusion ordered but patient refused today. Recheck labs Wednesday. Could be r/t diluation with IVF also. Heparin on hold. Assessment & Plan (09/08/2022 1:27 PM SENIOR LEAD PROJECT MANAGER): H&H has been stable, continue supplemental iron. Monitor Assessment & Plan (09/04/2022 1:58 PM SENIOR LEAD PROJECT MANAGER): H&H with continued to decline. Continue to hold heparin, add iron although patient may not tolerate due to ongoing GI complaints. Will follow-up H&H 09/07/2022. Patient may need EPO Assessment & Plan (08/26/2022 4:26 PM SENIOR LEAD PROJECT MANAGER): Heparin remain on hold, follow-up labs ordered but not done, will follow-up when labs available. Assessment & Plan (08/25/2022 11:55 AM SENIOR LEAD PROJECT MANAGER): H/H slowly trending down, will hold heparin. Recheck in am. Hyperphosphatemia 08/17/2022 Assessment & Plan (08/17/2022 12:34 PM SENIOR LEAD PROJECT MANAGER): Started on Sevelamer. Check level with next set of labs. Asymptomatic microscopic hematuria 08/17/2022 Assessment & Plan (08/17/2022 12:38 PM SENIOR LEAD PROJECT MANAGER): Will need urology f/u outpt. Former smoker. Nausea & vomiting 08/14/2022 Assessment & Plan (09/22/2022 12:00 PM SENIOR LEAD PROJECT MANAGER): This has been an ongoing issue since admission to [facility]. Patient does better with Pepcid, reduce Pepcid to 20 mg daily due to renal function. Continue p.r.n. Zofran Assessment & Plan (09/18/2022 1:23 PM SENIOR LEAD PROJECT MANAGER): Intermittent. Large emesis today & yesterday. Schedule Zofran q8h & Pepcid PO. Poor PO intake per patient & staff. Meds reviewed. Believe large part psychlogical. Assessment & Plan (09/15/2022 12:09 PM SENIOR LEAD PROJECT MANAGER): Resolved, give 2 more doses of pepcid then DC. Assessment & Plan (09/13/2022 3:50 PM SENIOR LEAD PROJECT MANAGER): Improved. Did not receive IV Pepcid or IV Compazine d/t pharmacy not having. Will monitor for now. Believe may be s/t CDiff. Assessment & Plan (09/11/2022 2:25 PM SENIOR LEAD PROJECT MANAGER): Comes and goes - no pattern. Is [...] 08/04/2022 Assessment & Plan (09/13/2022 3:51 PM SENIOR LEAD PROJECT MANAGER): Completed IVF. Repeat labs pending for am. Assessment & Plan (09/04/2022 1:57 PM SENIOR LEAD PROJECT MANAGER): Creatinine increased to 3.2, patient had some nausea, limiting her p.o. intake in the past 24 hours. Will give IV fluids, 2 L, recheck labs on 09/07/2022. Encouraged p.o. fluid intake if able. Continue Zofran for symptomatic management. Assessment & Plan (08/28/2022 6:22 PM SENIOR LEAD PROJECT MANAGER): Renal function without improvement, sodium has improved from 129-132. Patient's p.o. intake remains suboptimal, agrees to 1 L normal saline, follow-up labs 08/31/2022 Assessment & Plan (08/27/2022 11:49 AM SENIOR LEAD PROJECT MANAGER): Labs not drawn as ordered 08/26. Have emailed lab and asked for labs to be done STAT. Monitor. Assessment & Plan (08/26/2022 4:25 PM SENIOR LEAD PROJECT MANAGER): Patient appears to be better, blood pressure controlled, repeat labs are still pending. Tolerated 1 L of normal saline well. Assessment & Plan (08/25/2022 11:52 AM SENIOR LEAD PROJECT MANAGER): Cr worsened, now 2.8, new hyponatremia. Will give 1L NS, recheck labs in am Assessment & Plan (08/17/2022 12:34 PM SENIOR LEAD PROJECT MANAGER): Continues to improve. Cr 1.6. Assessment & Plan (08/13/2022 6:33 AM SENIOR LEAD PROJECT MANAGER): Follow-up BMP 08/13 Assessment & Plan (08/11/2022 9:11 AM SENIOR LEAD PROJECT MANAGER): Cr 2.5. Slowly trending down. Continue renally dose abx. Continue to hold gabapentin & Cymbalta. No complaints of increased pain. Lovenox changed to Heparin. Assessment & Plan (08/07/2022 11:05 AM SENIOR LEAD PROJECT MANAGER): Cr 2.6 - improved. On , will d/c after compeltion. Recheck labs Wednesday. Continue to hold nephrotoxins. Assessment & Plan (08/06/2022 12:31 PM SENIOR LEAD PROJECT MANAGER): Cr 3 today. Hold lovenox, Lasix, Gabapentin. Start IVF - recheck labs in am. Have notifed ID about abx adjustment. Labs ordered for am. May need to consult Nephrology. Assessment & Plan (08/04/2022 3:28 PM SENIOR LEAD PROJECT MANAGER): Cr continues to climb. CK stable at 38. Liver enzymes stable. Have discussed labs with pharmacy. Will decrease Cipro to 200mg BID, Dapto q48h, continue Lasix d/t anasarca. Repeat labs . Monitor closely, hold fluids d/t edema at this time. Hyponatremia 07/21/2022 Assessment & Plan (09/22/2022 12:01 PM SENIOR LEAD PROJECT MANAGER): Resolved Assessment & Plan (08/26/2022 4:25 PM SENIOR LEAD PROJECT MANAGER): Patient had worsening hyponatremia, fluid resuscitated yesterday, repeat labs are still pending despite multiple orders written. Assessment & Plan (08/11/2022 9:10 AM SENIOR LEAD PROJECT MANAGER): Na 132. NaCl d/c d/t edema. Assessment & Plan (08/07/2022 11:05 AM SENIOR LEAD PROJECT MANAGER): Improved with IVF Assessment & Plan (08/04/2022 3:30 PM SENIOR LEAD PROJECT MANAGER): Holding NaCl tab & Cymbalta with edema Assessment & Plan (08/03/2022 12:31 PM SENIOR LEAD PROJECT MANAGER): Na remains low, is on NaCl TID [...] rash. Assessment & Plan (09/22/2022 12:06 PM SENIOR LEAD PROJECT MANAGER): Patient with multiple pull and varied skin rashes throughout her stay. Will start triamcinolone for scaly annular left lower extremity rash. Follow-up with PCP Assessment & Plan (08/13/2022 6:31 AM SENIOR LEAD PROJECT MANAGER): Now patient complaining to RN of itchiness to legs. Continue Benadryl 25 mg q.8 p.r.n., will start prednisone 20 mg x 5 days, Assessment & Plan (08/11/2022 1:04 PM SENIOR LEAD PROJECT MANAGER): Reoccurred today, appears like petechiae on leg - could be r/t dressing used at wound clinic Unsure cause. Will monitor. Assessment & Plan (08/03/2022 12:33 PM SENIOR LEAD PROJECT MANAGER): Continues to resolve Assessment & Plan (07/31/2022 [...] 07/21/2022 Assessment & Plan (09/22/2022 12:05 PM SENIOR LEAD PROJECT MANAGER): Stable/improved with gabapentin Assessment & Plan (08/17/2022 12:35 PM SENIOR LEAD PROJECT MANAGER): Cr improved. Will restart gabapentin. Monitor. Assessment & Plan (08/11/2022 9:15 AM SENIOR LEAD PROJECT MANAGER): Gabapentin & Cymalta held with Cr. Montior for ability to resume. Assessment & Plan (07/21/2022 5:45 AM CDT): Symptoms controlled with gabapentin 300 mg t.i.d.. Anxiety and depression 07/21/2022 Assessment & Plan (09/22/2022 12:05 PM SENIOR LEAD PROJECT MANAGER): Patient remains withdrawn although has improved with increasing Wellbutrin dose. Cymbalta discontinued due to increasing renal function. Continue trazodone nightly for sleep Assessment & Plan (09/16/2022 1:28 PM SENIOR LEAD PROJECT MANAGER): Continue supportive care, continue increased Wellbutrin Assessment & Plan (08/27/2022 11:47 AM SENIOR LEAD PROJECT MANAGER): Increased depression with change in abx. Very flat/withdrawn. Will increase Wellbutrin. Have notified SS for counseling. Assessment & Plan (08/25/2022 11:43 AM SENIOR LEAD PROJECT MANAGER): Pt withdrawn, needs encouragement. Continue wellbutrin 150mg daily, duloxetine. Assessment & Plan (08/17/2022 12:37 PM SENIOR LEAD PROJECT MANAGER): Increased depression. Previously on Wellbutrin 300mg at home. Will resume at 150mg. Monitor. SS to discuss DCP. Currently on Daptomycin which is expensive for HH. Uncertain of support system for home also. Assessment & Plan (08/11/2022 12:57 PM SENIOR LEAD PROJECT MANAGER): Cymbalta had been on hold for cr, improving and patient asking to restart. Will restart. Monitor. Assessment & Plan (07/21/2022 5:46 AM CDT): Continue home med trazodone 150 mg nightly, amitriptyline 50 mg nightly, duloxetine 30 mg Hypokalemia 07/21/2022 Assessment & Plan (09/22/2022 12:01 PM SENIOR LEAD PROJECT MANAGER): Now with hyperkalemia since GI loss has improved. We will hold supplemental potassium, give lokelma x 1. Repeat BMP in a, rec f/u 09/25 Assessment & Plan (09/16/2022 1:28 PM SENIOR LEAD PROJECT MANAGER): Likely secondary to GI loss, increase p.o. supplement Assessment & Plan (09/14/2022 9:48 AM SENIOR LEAD PROJECT MANAGER): Increased PO supplement, also give some in IVF Assessment & Plan (09/11/2022 2:22 PM SENIOR LEAD PROJECT MANAGER): Improved restarted on PO potassium per MD. Assessment & Plan (09/11/2022 10:02 AM SENIOR LEAD PROJECT MANAGER): Potassium improved to 3. Will receive IV fluid with potassium chloride 1 L today again. Repeat labs a.m. Assessment & Plan (09/08/2022 1:31 PM SENIOR LEAD PROJECT MANAGER): Attempt oral repleation - may need to add to IV if not able to take po Assessment & Plan (08/11/2022 9:10 AM SENIOR LEAD PROJECT MANAGER): Level stable. Supplement d/c. Monitor. Assessment & Plan (08/03/2022 12:31 PM SENIOR LEAD PROJECT MANAGER): Stable on supplement. Assessment & Plan (07/27/2022 [...] same Assessment & Plan (09/22/2022 11:59 AM SENIOR LEAD PROJECT MANAGER): Blood pressures been lower throughout her stay, metoprolol has been discontinued, monitor as an outpatient, consider restarting if needed Assessment & Plan (09/11/2022 2:15 PM SENIOR LEAD PROJECT MANAGER): BP stable. BB remains on hold. Assessment & Plan (09/08/2022 1:32 PM SENIOR LEAD PROJECT MANAGER): BP lower, will place metoprolol on hold Assessment & Plan (09/04/2022 1:59 PM SENIOR LEAD PROJECT MANAGER): Blood pressure stable, continue metoprolol 25 mg b.i.d. Assessment & Plan (08/28/2022 6:26 PM SENIOR LEAD PROJECT MANAGER): Blood pressure variable but generally controlled, continue Lopressor Assessment & Plan (08/17/2022 12:31 PM SENIOR LEAD PROJECT MANAGER): BP elevated. Currently on no meds. Will add Lopressor 25mg BID & monitor. Assessment & Plan (08/14/2022 10:59 AM SENIOR LEAD PROJECT MANAGER): BP fluctuating. Monitor, may need adjustment. Assessment [...] 07/03/2022 Assessment & Plan (10/30/2022 1:46 PM SENIOR LEAD PROJECT MANAGER): Replace home linagliptin with SSI for now, can start basal/bolus regimen if glucose is persistently elevated. Assessment & Plan (09/22/2022 12:00 PM SENIOR LEAD PROJECT MANAGER): Blood sugars have been labile during her stay, Tresiba have been restarted however then had hypoglycemic episodes. Patient will be discharging home on Tradjenta 5 mg daily. Recommend monitoring blood sugars at least b.i.d., follow-up with PCP for further medication management Assessment & Plan (09/11/2022 2:17 PM SENIOR LEAD PROJECT MANAGER): BS 80-124. No requiring insulin & Tresiba remains on hold. Assessment & Plan (09/08/2022 1:33 PM SENIOR LEAD PROJECT MANAGER): Morning BS lower - will place tresiba on hold. Continue SSI with meals Assessment & Plan (09/04/2022 2:00 PM SENIOR LEAD PROJECT MANAGER): No hypoglycemic episodes, blood sugars ranging from 135-168, continue Tresiba 5 units q.h.s., sliding scale insulin with meals Assessment & Plan (09/01/2022 8:53 PM SENIOR LEAD PROJECT MANAGER): BS remains controlled, continue tight glycemic control to improve wound healing. Continue tresiba 5 units qhs, SSI. Assessment & Plan (08/25/2022 11:45 AM SENIOR LEAD PROJECT MANAGER): BS generally controlled with tresiba 5 units qhs, tradjenta, SSI. No documented hypoglycemic episodes. Assessment & Plan (08/17/2022 12:32 PM SENIOR LEAD PROJECT MANAGER): BS 101-250. Continue Tradjenta, SSI, Will restart Tresiba at 5u nightly. Monitor. Assessment & Plan (08/13/2022 6:33 AM SENIOR LEAD PROJECT MANAGER): BG 115-177. Continue SSI, may expect elevated BG secondary to prednisone starting today Assessment & Plan (08/11/2022 1:00 PM SENIOR LEAD PROJECT MANAGER): BS 147-223. Currently on SSI but not requiring often. Assessment & Plan (08/07/2022 11:02 AM SENIOR LEAD PROJECT MANAGER): BS stable with some elevation - will resume SSI for wound health. Monitor. Assessment & Plan (08/03/2022 12:31 PM SENIOR LEAD PROJECT MANAGER): BS running 74-156 on only Tradjenta, continue [...] (07/05/2022): Added automatically from request for surgery [id number] Assessment & Plan (07/21/2022 5:33 AM CDT): [...] colitis Assessment & Plan (10/30/2022 1:38 PM SENIOR LEAD PROJECT MANAGER): Continues to have diarrhea after 10 day course of fidoxamicin, will start long vancomycin taper. ID consulted. Assessment & Plan (09/22/2022 12:03 PM SENIOR LEAD PROJECT MANAGER): Patient has had recurrent C diff, completed Dificid - symptoms have now improved, leukocytosis resolved Assessment & Plan (09/15/2022 12:09 PM SENIOR LEAD PROJECT MANAGER): Looser stool improving, completes difacid today. Assessment & Plan (09/14/2022 9:49 AM SENIOR LEAD PROJECT MANAGER): Pt still with loose stool - c diff results pending. Rn sent order for stool culture incorrectly - although results are negative. Assessment & Plan (09/11/2022 9:59 AM SENIOR LEAD PROJECT MANAGER): Stool tested positive for C diff. for recurrent infection will start on fidaxomicin 200 mg x 10 days, id team has been informed. Continue IV fluid Assessment & Plan (09/08/2022 9:17 PM SENIOR LEAD PROJECT MANAGER): Diarrhea has returned, will check for C diff, continue replacement fluids Assessment & Plan (08/26/2022 4:22 PM SENIOR LEAD PROJECT MANAGER): Patient is not having frequent loose stools, she is completed vancomycin. Patient likely can come off isolation for C diff Assessment & Plan (08/25/2022 11:18 AM SENIOR LEAD PROJECT MANAGER): Pt completed vancomycin. Continue to monitor for loose stool as pt remains on antibiotics. Assessment & Plan (08/03/2022 12:32 PM SENIOR LEAD PROJECT MANAGER): Diarrhea stable. Continue PO vanc taper. Assessment [...] (10/30/2022): Added automatically from request for surgery [id number] Lower abdominal pain 08/14/2022 022 Assessment & Plan (08/17/2022 12:33 PM SENIOR LEAD PROJECT MANAGER): Resolved. CT negative. Assessment & Plan (08/14/2022 10:55 AM SENIOR LEAD PROJECT MANAGER): Patient having lower abd pain with n/v for >72d. She is afebrile, labs stable, LFTs normalized, no diarrhea, BS well controlled. Tenderness to abd on palpation. Will obtain CT of abd pelvis, will be unable to use contrast with kidneys currently. Continue PRN zofran PO & IV. Will obtain stat labs today + UA. Anasarca 08/04/2022 08/11/2022 Assessment & Plan (08/07/2022 11:06 AM SENIOR LEAD PROJECT MANAGER): Resolving despite fluids. Assessment & Plan (08/06/2022 12:20 PM SENIOR LEAD PROJECT MANAGER): Remains puffy in arms but d/t Cr [...] 12/17/2022 Assessment & Plan (09/13/2022 3:51 PM SENIOR LEAD PROJECT MANAGER): Cx remains positive for MRSA. Final cx pending. Abx on hold d/t LANNY will need to discuss with ID next week on stop for abx d/t missing doses. Assessment & Plan (08/07/2022 11:06 AM SENIOR LEAD PROJECT MANAGER): Saw ID yesterday, wants abx to continue until 09/08 with weekly labs. Assessment & Plan (08/06/2022 12:18 PM SENIOR LEAD PROJECT MANAGER): Patient has f/u with ID today. Will confirm abx stop date after appt. Assessment & Plan (08/03/2022 12:34 PM SENIOR LEAD PROJECT MANAGER): Continue abx, labs & ID f/u as scheduled. Appreciate their recommendations & consults. Assessment & Plan (07/21/2022 5:27 AM CDT): As in # OM R toe Assessment & Plan (07/17/2022 2:04 PM CDT): SEE above Osteomyelitis of great toe of right foot 07/03/2022 12/17/2022 Overview (07/05/2022): Added automatically from request for surgery [id number] Assessment & Plan (09/22/2022 12:03 PM SENIOR LEAD PROJECT MANAGER): Wound continues to slowly improve with wound VAC in place. Completed IV antibiotics, to complete an additional 2 weeks of doxycycline per Infectious Disease. Has follow-up with Podiatry/wound care clinic in [place] Assessment & Plan (09/16/2022 1:28 PM SENIOR LEAD PROJECT MANAGER): Foot/wound remained stable. Per daughter wound care clinic considering doing hyperbaric treatment once discharged from group home facility. Tolerating doxycycline without adverse reactions. Patient remains afebrile, without leukocytosis. Wound care nurse will start dressing change training/wound VAC training. We will work on starting wound VAC orders in anticipation for discharge early next week likely not before Wednesday09/22/2022. This was discussed with patient and daughter Assessment & Plan (09/15/2022 12:10 PM SENIOR LEAD PROJECT MANAGER): Wound continues to slowly improve. Wound cx [...] planning Assessment & Plan (09/11/2022 10:02 AM SENIOR LEAD PROJECT MANAGER): WBC normal. Blood culture negative. Telavancin currently on hold. Patient to start doxycycline from 09/23/2022. Continue wound care Assessment & Plan (09/08/2022 1:32 PM SENIOR LEAD PROJECT MANAGER): Wound overall is stable, has new leukocytosis. Will check blood cultures, review wound in a.m. with wound care nurse when wound VAC is removed. Repeat cultures ordered We will hold Cipro due to worsening renal function, call out to pharmacist regarding Telavancin dosing - may need adjustment with worsening renal failure Notified ID QUARTZ MINER via secure chat Assessment & Plan (09/01/2022 8:45 PM SENIOR LEAD PROJECT MANAGER): Pain controlled, wound stable. Encouraged pt dtr to discuss wound healing possibilities with podiatry and consider repeat tissue sampling after the current coarse of antibiotics. Continue wound vac, patient doing well with therapy. Assessment & Plan (08/28/2022 6:25 PM SENIOR LEAD PROJECT MANAGER): Patient tolerating antibiotic change well. Reinforced need for improvement in documentation of meds given by nursing staff, 2nd dose due today of telavancin through 09/22/2022, Cipro and fluconazole continue. Patient has follow-up wound clinic appointment 08/31/2022, to take Assessment & Plan (08/26/2022 4:21 PM SENIOR LEAD PROJECT MANAGER): Received call from Infectious Disease that they [...] her. Assessment & Plan (08/25/2022 11:26 AM SENIOR LEAD PROJECT MANAGER): Pt missed podiatry follow up due to [...] up. Assessment & Plan (08/11/2022 9:14 AM SENIOR LEAD PROJECT MANAGER): Outpt wound clinic f/u with Dr. Leon today. Continue wound vac MWF. Wear post-op shoe with WB, can heel-touch WB with transfers. F/u 08/24. Assessment & Plan (08/06/2022 12:19 PM SENIOR LEAD PROJECT MANAGER): Wound clinic appt with Dr. Leon 08/10. Assessment & Plan (08/04/2022 3:28 PM SENIOR LEAD PROJECT MANAGER): Was able to reach Dr. Leon. Wants to see in Wound Clinic. Admin working on arranging appt. Assessment & Plan (08/03/2022 12:40 PM SENIOR LEAD PROJECT MANAGER): Have attempted to call Dr. Fullre office again today. No answer, message left. Photos loaded to [employer]. Concerns with foot. Will add on Lasix [...] (06/30/2022): Added automatically from request for surgery [id number] Assessment & Plan (09/18/2022 1:25 PM SENIOR LEAD PROJECT MANAGER): Will be unable to skill patient next week. SS/Wound RN working on d/c changing wound vac and changing to BID dressing changes instead to help with skilling patient. Educated orders must come from Dr. Leon. Assessment & Plan (09/13/2022 3:51 PM SENIOR LEAD PROJECT MANAGER): Patient has f/u podiatry in am. VPC (ventricular premature complex) 06/24/2022 08/17/2022 Elevated lactic acid level 1 Acute respiratory failure with hypoxia 07/17/2022 Abscess of right lower leg 0 12/17/2022 Assessment & Plan (12/03/2022 11:01 AM SENIOR LEAD PROJECT MANAGER): Leg with minimal edema. [place] have been removed. Okay to begin using the stump protective signal operations supervisor. Continue with the ampu shield to prevent trauma to the stump. Patient will call us back with any further questions or concerns. Assessment & Plan (10/30/2022 1:40 PM SENIOR LEAD PROJECT MANAGER): Likely associated with known osteomyelitis with complicated [...] 10/29/2022 Added automatically from request for surgery [id number] Osteomyelitis of great toe o f right foot ([facility]) 07/03/2022 Added automatically from req uest for surgery [id number] Acute osteomyelitis of right ankle or foot ([facility]) 06/30/2022 Added automatically from req uest for surgery [id number] MRSA bacteremia 07/06/2022 PONV (postoperative nausea a [...] experiencing loneliness or isolatio n Never 03/08/2024 [facility] Utilities Answer Date Recorded In the [...] often do you attend chur ch or confucianist services? Never 03/27/2024 Do you belong to any clubs o r organizations such as zoroastrianism groups, unions, fraternal or athletic groups, or [...] Recorded Patient Health Questionnaire-2 Score 0 11/26/2022 [facility] [place] of Occupat ional Health - Occupational Stress [...] place to sleep or slept in a intermediate (including now)? No 02/19/2023 Housing Stability Vital Sign Answer Christiano e Recorded In the last 12 months, was t here a time when you were not able to pay the mortgage or rent on time? No 03/27/2024 In the past 12 months, how m any times have you moved where you were living? 0 03/27/2024 At any time in the past 12 m [facility], were you homeless or living in a intermediate (including now)? 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 Gender Identity Not on file Sexual [...] 10/19/2018, 09/27/2007 Medical Devices Implanted Type Area Concrete Vault Maker Device Identifier Shelf Expiration Date Model / Serial / Lot [employer] Kit Fixation Victoria Secondary Swivelock 4.75x19.1mm Ar-1593-Bc - [id number] Implanted:Qty: 1 on 07/27/2023 by Abdifatah Rooney MD at [facility] Other - see comments Right: Leg [employer] 05/27/2027 AR-1593-BC / / [id number] [employer] Swivelock C 4.75mm 19.1mm Closed Eyelet Vent Victoria Suture Ar-2324bcc - [id number] Implanted:Qty: 1 on 07/27/2023 by Abdifatah Rooney MD at [facility] Other - see comments Right: Leg [employer] 10/27/2026 [id number] / / [id number] Procedures Procedure Name Priority Date/Time Associated Diagnosis [...] LAB BLOOD ORDERABLES Final Result [facility] Department of Laboratories [place], [place] [id number] * Hemoglobin A1c (02/18/2023 1:35 PM CDT) Hgb A1C 4.8 4.0 - 5.6 % [facility] Estimated Average Glucose 91 mg/dL [facility] Comment: The ADA recommends reporting an estimated Average Glucose (eAG) with all Hemoglobin A1c results using the equation derived from a study of 507 normal and diabetic adults. Minority populations were underrepresented and children were not included. (Diabetes Care 31:5031-6401, 2008). The eAG is not equivalent to a fasting glucose. Blood 02/18/2023 1:35 PM CDT 02/18/2023 2:50 PM CDT Katie Hernandez MD LAB BLOOD ORDERABLES Final R esult [facility] Department [place] [address] * POCT lipid panel (04/29/2022 [...] Most Recently Relevant to Health Maintenance [place] [address] [address] [place] [address] OPEN ACCESS CIG[employer] OPEN ACCESS CIGNA OPEN ACCESS Advance Directives For more information, please contact: [phone] * Full Code (Latest Code Status on [...] 5:47 AM 11/16/2022 1:50 PM Care Teams Professional Employer Consultant Relationship Specialty Start Date End Date Federico Meza MD PCP - General Family Medicine 10/21/21 aMtthew Leon DPM [address] [place] [address] Consulting Physician Foot and Ankle Surg 07/16/22
[2025-07-27 15:07] LABS: Alanine Aminotransferase 17 U/L (6-35); Albumin Level 3.7 g/dL (3.5-5.1); Alkaline Phosphatase 165 U/L (38-126); Aspartate Amino Transferase 26 U/L (14-36); Bilirubin,Total 0.4 mg/dL (0.2-1.3); Blood Urea Nitrogen 40 mg/dL (7-17); Calcium 8.5 mg/dL (8.4-10.2); Carbon Dioxide < 5 mmol/L (22-30); Chloride 117 mmol/L (98-107); Estimated Glomerular Filt Rate 7; Glucose 99 mg/dL (65-110); Potassium 3.5 mmol/L (3.4-5.0); Sodium 138 mmol/L (137-145); Total Protein 7.0 g/dL (6.3-8.2)
[2025-07-27 15:46] LABS: Influenza A QL RT-PCR Negative (Negative); Influenza B QL RT-PCR Negative (Negative); RSV RNA, RT-PCR Negative (Negative); SARS-CoV-2 RNA PCR Negative (Negative)
[2025-07-27] MEDS: SODIUM CHLORIDE 0.9% IV 500 ML 50 ML IV CONT (15:49)
[2025-07-27 15:57] LABS: Alveolar/Arterial O2 Gradient 23.0 mmHg; Fractional Inspired Oxygen 21 %; HCO3 ABG 6.4 mEq/l (22.0-26.0); Oxygen Content ABG 14.3 %vol (16.0-22.0); Oxygen Saturation ABG 95.4 % (95.0-100.0); PO2 ABG 101.3 mmHg (80.0-100.0); PO2 FiO2 Ratio Arterial Blood 4.82 %
[2025-07-27 16:02] LABS: Liters per Minute 0.0 LPM; Modified Allen's Test Pass; PCO2 ABG 21.2 mmHg (35.0-45.0); Site Drawn RIGHT RADIAL
[2025-07-27 16:38] LABS: Magnesium 1.7 mg/dL (1.6-2.3)
[2025-07-27 16:38] LABS: Ammonia 15 umol/L (9-30)
[2025-07-27 16:43] LABS: Beta-Hydroxybutyrate/Acetoace. 0.67 mmol/L (0.02-0.27)
[2025-07-27 16:51] LABS: Add Urine Microscopic? YES; Appearance Urine Turbid (Clear); Glucose Urine UA Negative (Negative); Leukocyte Esterase Ur 3+ LEU/UL (Negative); Need Manual Microscopic Reviewed; Nitrate Urine Positive (Negative); Specific Grav Ur 1.011 (1.001-1.035)
[2025-07-27] MEDS: MEROPENEM 1 GM in SODIUM CHLORIDE 0.9% IV 100 ML 200 ML IVPB (17:03)
[2025-07-27] MEDS: LACTATED RINGERS 1,000 ML 999 ML IV CONT (17:16)
[2025-07-27] MEDS: SODIUM BICARBONATE 8.4% 150 MEQ in DEXTROSE 5% 1,000 ML 950 ML 75 MEQ IV CONT (18:17)
--- NOTE | 2025-07-27 19:30 | PC.NURSE ---
report called to kiah ling rn
--- NOTE | 2025-07-27 20:35 | ADMGEN ---
This patient, Jeanette Peres, was admitted to IMU Room 205-02. Patient/family oriented to hospital policies and general routines including ID bracelet, bed and alarms, visiting hours, pain management, procedures, bathroom and other care routines, personal items, smoking policy, room service/diet, and visiting hours. Information on how to activate the Rapid Response Team has been discussed. Patient/Family are encouraged to report perceived risks to care and to ask questions if they do not understand what they are told or what they should do.
--- NOTE | 2025-07-27 22:04 | PM.IMHP ---
H&P: HPI History of Present Illness Date/Time: 07/27/25 22:04 Chief Complaint: Weakness Narrative: This is a 60-year-old female patient who has chronic renal failure, frequent urinary tract infection with drug-resistant bacteria, recurrent C difficile, diabetes, and hypertension. The patient complained that she has had generalized weakness and some confusion. She also complained of right lower quadrant abdominal tenderness. The patient stated that she has an appointment with the systems software developer on Wednesday and was going to talk about dialysis on that day. She already has a left forearm AV fistula placed. Labs up obtain in the emergency room white count is 14.9, H&H 9.5 and 30.2. ABGs suggest metabolic acidosis. Her creatinine is 6.5 with BUN of 40. Her GFR 7. Point of care glucose is 165. Urinalysis shows 3+ leukocyte esterase, urine wbc's greater than 100, 4+ urine bacteria and positive nitrate. Chest x-ray was read as findings in the inferior left hemothorax stranding atelectasis versus infiltrate at the left lung base. Head CT no acute intracranial abnormality. Abdomen/pelvis CT was read as a following. Borderline bladder wall thickening and subtle haziness to the surrounding fat consistent with mild cystitis. Correlate with urinalysis. 2. Pleural thickening along the margins of a small likely complex left pleural effusion. 3. Mild cardiomegaly. 4. Nonspecific splenomegaly. 5. Small fat-containing umbilical hernia. She was started on meropenem, sodium bicarb, and IV fluids. Nephrology has been consulted. The patient is being admitted to inpatient services on the date of service of 07/27/2025. Review of Systems Constitutional: Constitutional: Reports as per HPI and Reports no additional constitutional complaints Eyes: Eyes: Reports as per HPI and Reports no additional eye complaints ENT: Reports system reviewed and no additional complaints, except as documented and Reports Normal hearing present Cardiovascular: Cardiovascular: Reports no additional cardiovascular complaints Respiratory: Respiratory: Reports as per HPI and Reports no additional respiratory complaints Gastrointestinal: Gastrointestinal: Reports as per HPI and Reports no additional gastrointestinal complaints Genitourinary: Genitourinary: Reports no additional female genitourinary complaints Musculoskeletal: Musculoskeletal: Reports no additional musculoskeletal complaints Integumentary/Breasts: Skin/Breast: Reports system reviewed and no additional complaints, except as docu Neurologic: Reports system reviewed and no additional complaints, except as documented and Reports Normal hearing present Psychiatric: Psychiatric: Reports no additional psychiatric complaints and Reports as per HPI Hematologic/Lymphatic: Hematologic/Lymphatic: Reports no additional hematologic/lymphatic complaints Allergic/Immunologic: Allergic/Immunologic: Reports no additional allergic/immunologic complaints [facility] Past Medical History Medical History Right BKA infection Acute on chronic kidney failure Clostridium difficile colitis Amputation of leg Right gjeev-jnb-ovyi UTI due to extended-spectrum beta lactamase (ESBL) producing Escherichia coli Application of prosthesis S/P fecal transplant 06/2023 Wound discharge Nausea and vomiting in adult Leg edema, left Anemia Stage 4 chronic kidney disease Overweight with body mass index (BMI) of 28 to 28.9 in adult Myalgia Inflammatory arthritis Microscopic colitis Adult BMI 31.0-31.9 kg/sq m Recurrent Clostridioides difficile infection Obese C. difficile diarrhea Gall bladder disease Allergies Hematochezia Abdominal adhesions Abdominal distention Abnormal colonoscopy Atelectasis of both lungs Carpal tunnel syndrome of left wrist Daytime hypersomnolence Diabetic foot infection Dyspnea on exertion Dysthymia Essential hypertension Hammertoes of both feet Hypovitaminosis D ILD (interstitial lung disease) Lactic acidemia Lymphedema MDD (major depressive disorder), recurrent episode, with atypical features Microalbuminuria due to type 2 diabetes mellitus Mixed hyperlipidemia Onychogryphosis Other screening mammogram PTSD (post-traumatic stress disorder) Peripheral polyneuropathy Pes cavus Proteinuria, unspecified Psychophysiological insomnia Pulmonary nodule Rash and nonspecific skin eruption Spondylosis of lumbar region without myelopathy or radiculopathy Tinea corporis Tinea unguium Tobacco use disorder Trigger finger of left thumb Type 2 diabetes mellitus with hyperglycemia, without long-term current use of insulin 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 History of blood transfusion Bipolar disorder Chronic back pain Fibromyalgia Post-menopausal Tubal Pneumonia Hyperlipidemia Surgical History Surgical History Status post insertion of dialysis catheter S/P partial hysterectomy S/P ventral herniorrhaphy Status post ORIF of fracture of ankle Right ankle History of hysterectomy History of tubal ligation History of breast biopsy left breast History of dilatation and curettage History of cholecystectomy History of umbilical hernia repair History of cardiac catheterization Family History Family History Father due to motor vehicle traffic accident Hypertension Bowel cancer Grandparent Diabetes mellitus Other Diabetes mellitus Mother due to motor vehicle traffic accident Sibling Club foot COVID-19 Other Family history of heart disease in male family member before age 55 Social History Social History (Updated 07/27/25 @ 22:19 by Yoana Lua, JOINT SEALER) Social History: The patient is and lives in [place] with her . She smoked 1.5 packs of cigarettes per day for many years, and quit smoking. However for the last 6 months she has been smoking up to half a pack of cigarettes per day due to stress. No excessive alcohol use. She denies illicit drug use. She designates her Will as her surrogate decision maker and she wishes to be a full code. the patient was working in [employer] but does and able to work in [employer] due to her ankle. The patient is applying for disability. She is unable to work at this time. She cannot stand on her foot she has severe neuropathy. She has 2 children. 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 Substance use: never Substance use type: does not use Other substance usage details: A TEENAGER Do You Feel Safe in your Home?: Yes Lack of Transportation: No Lack of Food: Never True Current Housing: I Have Housing Concerned About Future Housing: No Difficulty Paying Gas/Electric Bills: No Difficulty Paying for Meds: No Currently Unemployed: No Education: High School Diploma/GED Difficulty w/ Childcare or Family Care: No Living arrangements: with family Occupation/Education: retired 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 Gender identity (if verbalized by the patient): Female Sexual Orientation (if Verbalized by the Patient): Straight or Heterosexual Spiritual care concerns: No Agree to blood products: Yes Meds Home Medications and Allergies Home Medications ?Medication ?Instructions ?Recorded ?Confirmed ?Type trazodone 150 mg tablet 150 mg PO HS PRN Insomnia 11/04/19 07/27/25 History hydralazine 25 mg tablet 25 mg PO TID 11/30/22 07/27/25 History blood-glucose,head of sales promotion,cont #1 ea 01/14/23 07/27/25 Rx (Dexcom G7 Editing Clerk) pen needle, diabetic 32 gauge x #600 ea 02/24/23 07/27/25 Rx /32 (BD Ultra-Fine Erika Pen Needle) insulin degludec 200 unit/mL (3 12 unit (0.06 mL) subcut QHS #9 mL 12/30/23 07/27/25 Rx mL) subcutaneous pen (Tresiba FlexTouch U-200 insulin) brexpiprazole 2 mg tablet (Rexulti) 2 mg PO DAILY 03/03/24 07/27/25 History cholecalciferol (vitamin D3) 25 25 mcg PO DAILY 03/03/24 07/27/25 History mcg (1,000 unit) chewable tablet (Vitamin D3) promethazine 25 mg tablet 25 mg PO TID PRN Nausea 03/13/24 07/27/25 History albuterol sulfate 90 mcg/actuation 2 inh inhalation Q6H PRN shortness 05/22/24 07/27/25 Rx aerosol inhaler of breath or wheezing #8.5 grams cyanocobalamin (vitamin B-12) 50 50 mcg PO DAILY 07/25/24 07/27/25 History mcg tablet (Vitamin B-12) furosemide 20 mg tablet See Rx Instructions .Route 02/09/25 07/27/25 Rx .COMPLEX #90 tabs atorvastatin 10 mg tablet See Rx Instructions .Route 02/26/25 07/27/25 Rx .COMPLEX #90 tabs blood-glucose sensor (Dexcom G7 #9 ea 02/26/25 07/27/25 Rx Sensor device) insulin lispro 200 unit/mL (3 mL) 4 unit (0.02 mL) subcut TIDWM #24 04/03/25 07/27/25 Rx subcutaneous pen (Humalog KwikPen mL U-200 Insulin) sertraline 100 mg tablet 100 mg PO DAILY 05/23/25 07/27/25 History gabapentin 300 mg capsule See Rx Instructions PO .COMPLEX 06/07/25 07/27/25 Rx #120 caps nicotine 21 mg/24 hr daily 1 patch transdermal DAILY #28 ea 06/07/25 07/27/25 Rx transdermal patch (Nicoderm CQ) sodium bicarbonate 650 mg tablet 650 mg PO BID #60 tabs 07/04/25 07/27/25 Rx bupropion HCl 300 mg 24 hr tablet, 300 mg PO DAILY 07/09/25 07/27/25 History extended release pantoprazole 40 mg tablet,delayed 40 mg PO DAILY 07/09/25 07/27/25 History release potassium chloride 20 mEq 20 meq PO BID #14 tabs 07/20/25 07/27/25 Rx tablet,extended release(part/cryst) (Klor-Con M) Allergies Allergy/AdvReac Type Severity Reaction Status Date / Time ceftriaxone Allergy Severe Rash Verified 07/27/25 20:36 adhesive Allergy Intermediate Itching/ Verified 07/27/25 20:36 SWELLING / RASH povidone-iodine Allergy Intermediate rash Verified 07/27/25 20:36 soap (From Betadine) Allergy Intermediate Rash Verified 07/27/25 20:36 Vital Signs Vital Signs - 24 hr 07/27/25 11:31 07/27/25 14:08 07/27/25 17:01 Temperature 98.4 F Pulse Rate 79 76 Respiratory Rate 18 16 Blood Pressure 138/96 H Pulse Oximetry 100 07/27/25 17:02 07/27/25 17:03 07/27/25 17:17 Temperature Pulse Rate 74 86 Respiratory Rate 12 16 19 Blood Pressure 147/56 H 147/56 H Pulse Oximetry 100 100 100 07/27/25 17:34 07/27/25 17:45 07/27/25 17:46 Temperature Pulse Rate 76 76 76 Respiratory Rate 19 18 21 H Blood Pressure 140/66 Pulse Oximetry 100 99 99 07/27/25 18:01 07/27/25 18:15 07/27/25 18:16 Temperature Pulse Rate 78 76 Respiratory Rate 29 H 26 H 21 H Blood Pressure 164/58 H Pulse Oximetry 100 07/27/25 18:30 07/27/25 18:31 07/27/25 18:45 Temperature Pulse Rate 75 76 78 Respiratory Rate 19 20 12 Blood Pressure 141/52 H Pulse Oximetry 99 07/27/25 18:46 07/27/25 19:11 07/27/25 19:15 Temperature Pulse Rate 76 78 78 Respiratory Rate 14 20 20 Blood Pressure 157/70 H Pulse Oximetry 07/27/25 19:16 07/27/25 20:05 07/27/25 20:14 Temperature 97.6 F Pulse Rate 77 73 77 Respiratory Rate 20 16 20 Blood Pressure 158/66 H 148/49 H 158/66 H Pulse Oximetry 98 99 Exam Const: General: cooperative, comfortable, no acute distress, well developed, awake, Physically active, average body habitus and well nourished Nutritional Appearance: average body habitus and well nourished Orientation/consciousness: oriented to person and oriented to place Limitations: no limitations HENMT: Head: normal to inspection, No palpable skull fracture present, normocephalic and atraumatic Eyes: General: appearance normal, both eyes and all related structures Alignment and Position: alignment normal Periorbital: periorbital findings normal Neck: Neck: normal visual inspection Chest: Chest palpation & inspection: normal inspection of the chest Resp: Effort & Inspection: normal respiratory effort Cardio: Palpation: normal PMI Rate: regular rate Rhythm: regular rhythm Heart sounds: S1 normal heart sound present and S2 normal heart sound present Peripheral pulses: Peripheral pulses 2+ throughout GI: Inspection: normal to inspection Percussion: Yes normal to percussion Auscultation: normal bowel sounds Rectal Exam: deferred Skin: General skin exam: normal color Lesions: no lesions Rashes: no rashes Trauma: no lacerations or abrasions Wounds: no wounds Hair: normal Nails: normal Other: excoriation under bilateral breast and under abdominal fold to the suprapubic area. She has friction ulcers x2 to her sacral area. Skin between the toes on the left foot are within normal limits. Her right xberg-ter-ewyn amputation stump is free of any erythema. Neuro: General: oriented to person and oriented to place Cranial nerves: Yes Equal, round and reactive pupils present and Yes Normal hearing present Cognition (Neuro): normal cognition Speech: normal speech Motor exam (neuro): 5/5 motor strength present throughout Extrem: General: normal to inspection Right upper extremity: normal to inspection and shoulder/upper arm Left upper extremity: normal to inspection and shoulder/upper arm Other: Right nlggn-afx-fvdl amputation noted Psych: Appearance: grossly normal Mental Status: mental status grossly normal Speech and movement: Normal speech and movement present Affect: normal affect Attitude: cooperative Thought process: Normal thought process present Thought content: Yes Normal thought content present Insight: Limited insight present (Psych) Judgement: Limited judgement present (Psych) H&P: Results Labs Labs: Short CBC 07/27/25 Range/Units 14:05 WBC 14.9 H (4.5-10.0) K/mm3 Hgb 9.5 L (12.0-15.0) g/dL Hct 30.2 L (37.0-47.0) % Plt Count 169 D (150-375) k/mm3 BMP 07/27/25 14:39 Sodium 138 Potassium 3.5 Chloride 117 H Carbon Dioxide < 5 L BUN 40 H Creatinine 6.50 H Glucose 99 Calcium 8.5 Liver Function 07/27/25 Range/Units 14:39 Total Bilirubin 0.4 (0.2-1.3) mg/dL AST 26 (14-36) U/L ALT 17 (6-35) U/L Alkaline Phosphatase 165 H (38-126) U/L Albumin 3.7 (3.5-5.1) g/dL Urine 07/27/25 Range/Units 16:23 Urine Color Yellow (Yellow) Urine Appearance Turbid H (Clear) Urine pH 5.0 (5.0-9.0) Ur Specific [place] 1.011 (1.001-1.035) Urine Protein 2+ H (Negative) mg/dL Urine Glucose (UA) Negative (Negative) mg/dL ECG Interpretation: Test Date: 2025-07-27 14:06:49 Measurements Intervals [place] Rate: 77 P: 40 PA: 187 QRS: 30 QRSD: 114 T: 71 QT: 392 QTc: 445 Interpretive Statements SINUS RHYTHM INTRAVENTRICULAR CONDUCTION DELAY BORDERLINE ST-T WAVE ABNORMALITY- HIGH LATERAL LEADS BORDERLINE ECG Compared to ECG 05/23/2024 17:15:10 POSSIBLE ISCHEMIA NO LONGER PRESENT Electronically Signed On 07-27-2025 14:08:39 CDT by Jun Navarro D.O. Imaging CT scan - head: Radiologist's impression: Impressions Chest X-Ray 07/27/25 14:51 IMPRESSION: Findings in the inferior left hemithorax as described. Head CT 07/27/25 15:50 Impression: 1.No acute intracranial abnormality. Abdomen/Pelvis CT 07/27/25 15:57 IMPRESSION: 1. Borderline bladder wall thickening and subtle haziness to the surrounding fat consistent with mild cystitis. Correlate with urinalysis. 2. Pleural thickening along the margins of a small likely complex left pleural effusion. 3. Mild cardiomegaly. 4. Nonspecific splenomegaly. 5. Small fat-containing umbilical hernia. Assessment and Plan Assessment and plan (1) Stage 5 chronic kidney disease: Code(s): N18.5 - Chronic kidney disease, stage 5 Status: Acute Assessment and Plan: -the patient has a AV fistula left forearm with positive bruit and thrill -the patient stated that she has an appointment with Nephrology on Wednesday. However they have been consulted to see her while she is admitted here. The patient stated that she is agreeable to move forward with hemodialysis. -the patient has metabolic acidosis and was given bicarb in the emergency room. -her creatinine is currently 6.5 which is higher than her baseline of 3.40. This month her creatinine has gradually increased. Her GFR has been 7 throughout the month of June with previous baseline of 14-17. Her BUN is 40 with a baseline of 34-39. -avoid nephrotoxic medication. -daily BMP (2) Metabolic acidosis: Code(s): E87.20 - Acidosis, unspecified Status: Acute Assessment and Plan: -is multifactorial. -she has chronic renal failure -she is also diabetic -she also has an infection. -she was given a dose of sodium bicarb in the emergency room. -continue with bicarb tablet (3) UTI (urinary tract infection): Code(s): N39.0 - Urinary tract infection, site not specified Status: Acute Assessment and Plan: -urinalysis shows 3+ blood, positive nitrates, 3+ leukocyte esterase, urine wbc's greater than 100, and 4+ bacteria. -blood in urine cultures are pending. 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 -patient was started on ertapenem pending cultures -urology has been consulted for multiple UTIs. (4) Anemia: Qualifiers: Anemia type: unspecified type Qualified Code(s): D64.9 - Anemia, unspecified Code(s): D64.9 - Anemia, unspecified Status: Acute Assessment and Plan: -anemia of chronic renal disease. -her H&H is stable with H&H 9.5 and 30.2. -no current signs and symptoms of active bleeding (5) Type 2 diabetes mellitus with hyperglycemia, with long-term current use of insulin: Code(s): E11.65 - Type 2 diabetes mellitus with hyperglycemia; Z79.4 - detention (current) use of insulin Status: Acute Assessment and Plan: -point of care bedside glucose AC and HS with sliding scale insulin. - check a1 if not performed in the last 6 months (6) Hypertension: Code(s): I10 - Essential (primary) hypertension Status: Chronic Assessment and Plan: -continue with hydralazine -current blood pressure 158/66. (7) Hyperlipidemia LDL goal <100: Code(s): E78.5 - Hyperlipidemia, unspecified Status: Acute Assessment and Plan: -continue with atorvastatin and monitor liver function (8) Bipolar disorder: Qualifiers: Active/Remission status: remission status unspecified Qualified Code(s): F31.9 - Bipolar disorder, unspecified Code(s): F31.9 - Bipolar disorder, unspecified Status: Acute Assessment and Plan: -continue with home medication of bupropion, Rexulti, and trazodone. (9) Tobacco dependence: Code(s): F17.200 - Nicotine dependence, unspecified, uncomplicated Status: Chronic Assessment and Plan: -continue with nicotine -smoking cessation education Plan Generalized weakness could be due to her chronic renal failure. Nephrology has noted several times that the patient as felt fatigued and sleeping large amount of times. She complains of generalized weakness multiple times. PT OT evaluation would greatly be appreciated. Quality VTE Prophylaxis VTE prophylaxis: mechanical ordered
[2025-07-28] VITALS (16 sets, daily range): BP systolic 133–171; BP diastolic 53–58; PULSE 72–82; RESP 16–24; TEMP 36.4–37.1; O2SAT 96–100
[2025-07-28 04:53] LABS: Hematocrit 27.5 % (37.0-47.0); Hemoglobin 8.6 g/dL (12.0-15.0); Mean Corpuscular HGB Conc 31.3 g/dl (32-36); Mean Corpuscular Hemoglobin 31.6 pg (26-34); Mean Corpuscular Volume 101.1 fl (80-100); Platelet Count Result 127 k/mm3 (150-375); Red Blood Count 2.72 M/mm3 (4.2-5.4); White Blood Count 12.1 K/mm3 (4.5-10.0)
[2025-07-28 05:02] LABS: Carbon Dioxide < 5 mmol/L (22-30); Chloride 118 mmol/L (98-107); Sodium 139 mmol/L (137-145)
[2025-07-28 05:03] LABS: Albumin Level 3.0 g/dL (3.5-5.1); Blood Urea Nitrogen 40 mg/dL (7-17); Calcium 8.0 mg/dL (8.4-10.2); Estimated CRCL calculation 10 ml/min; Estimated Glomerular Filt Rate 8; Glucose 122 mg/dL (65-110)
[2025-07-28 05:04] LABS: Potassium 2.7 mmol/L (3.4-5.0)
[2025-07-28 05:15] LABS: Hemoglobin A1C 4.4 % (<5.7)
[2025-07-28 06:00] LABS: Hepatitis B Surface Antigen Negative (Negative)
[2025-07-28] MEDS: KCL 20 MEQ/SW 100 ML 100 ML 50 MEQ IVPB (06:13)
[2025-07-28 06:17] LABS: Hepatitis B Surface Anti Res Negative
[2025-07-28] MEDS: SODIUM BICARBONATE 8.4% 150 MEQ in DEXTROSE 5% 1,000 ML 950 ML 75 MEQ IV CONT ×2 (09:45→23:31)
--- NOTE | 2025-07-28 09:45 | PM.IMPN ---
Progress Note: A&P Assessment and Plan (1) Stage 5 chronic kidney disease: Code(s): N18.5 - Chronic kidney disease, stage 5 Status: Acute Assessment and Plan: -the patient has a AV fistula left forearm with positive bruit and thrill however nonfunctional per Nephrology Worsening with severe metabolic acidosis. Remains on bicarb drip. The patient stated that she is agreeable to move forward with hemodialysis. She will need dialysis access to initiate as left arm fistula not functional Consult general surgery for dialysis access placement Baseline creatinine of 3.40. (2) Metabolic acidosis: Code(s): E87.20 - Acidosis, unspecified Status: Acute Assessment and Plan: -is multifactorial. -she has chronic renal failure -she is also diabetic -she also has an infection. Particularly with UTI and possible left lower lobe pneumonia -she was given a dose of sodium bicarb in the emergency room. -continue with bicarb tablet as well as IV bicarb (3) UTI (urinary tract infection): Code(s): N39.0 - Urinary tract infection, site not specified Status: Acute Assessment and Plan: -urinalysis shows 3+ blood, positive nitrates, 3+ leukocyte esterase, urine wbc's greater than 100, and 4+ bacteria. -blood in urine cultures are pending. 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 -patient was started on meropenem pending cultures -urology has been consulted for multiple UTIs. (4) Anemia: Qualifiers: Anemia type: unspecified type Qualified Code(s): D64.9 - Anemia, unspecified Code(s): D64.9 - Anemia, unspecified Status: Acute Assessment and Plan: -anemia of chronic renal disease. 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 (6) Hypertension: Code(s): I10 - Essential (primary) hypertension Status: Chronic Assessment and Plan: -continue with hydralazine (7) Hyperlipidemia LDL goal <100: Code(s): E78.5 - Hyperlipidemia, unspecified Status: Acute Assessment and Plan: -continue with atorvastatin and monitor liver function (8) Bipolar disorder: Qualifiers: Active/Remission status: remission status unspecified Qualified Code(s): F31.9 - Bipolar disorder, unspecified Code(s): F31.9 - Bipolar disorder, unspecified Status: Acute Assessment and Plan: -continue with home medication of bupropion, Rexulti, and trazodone. (9) Tobacco dependence: Code(s): F17.200 - Nicotine dependence, unspecified, uncomplicated Status: Chronic Assessment and Plan: -continue with nicotine -smoking cessation education Plan Generalized weakness it to her chronic renal failure. Nephrology has noted several times at patient as felt fatigued and sleeping large amount of times. She complains of generalized weakness multiple times. PT OT evaluation would greatly be appreciated. Hypokalemia hypomagnesemia replace as needed Subjective Date/time seen: 07/28/25 09:45 Interval history: No overnight events reported. Labs reviewed. Discussed with Nephrology. Patient is slow to respond. Review of Systems Review of Systems: All systems reviewed & are unremarkable except as noted in HPI and below Exam Narrative: GENERAL: ill-appearing, mildly confused HEAD: Normocephalic, atraumatic. ENT:? Mucous membranes moist. CHEST: Clear to auscultation.? No respiratory distress. HEART: Regular rate and rhythm. ? Normal peripheral pulses. ABDOMEN: Soft, nondistended, nontender EXTREMITIES: Normal range of motion. No peripheral edema. RLE amputation with prosthetic device SKIN: Warm dry normal color NEURO: Awake, drowsy, confused at times, generalized weakness without focal findings Objective Data Vital Signs Vital Signs: Vital Signs - 24 hr 07/27/25 11:31 07/27/25 14:08 07/27/25 17:01 Temperature 98.4 F Pulse Rate 79 76 Respiratory Rate 18 16 Blood Pressure 138/96 H Pulse Oximetry 100 Oxygen Delivery 07/27/25 17:02 07/27/25 17:03 07/27/25 17:17 Temperature Pulse Rate 74 86 Respiratory Rate 12 16 19 Blood Pressure 147/56 H 147/56 H Pulse Oximetry 100 100 100 Oxygen Delivery 07/27/25 17:34 07/27/25 17:45 07/27/25 17:46 Temperature Pulse Rate 76 76 76 Respiratory Rate 19 18 21 H Blood Pressure 140/66 Pulse Oximetry 100 99 99 Oxygen Delivery 07/27/25 18:01 07/27/25 18:15 07/27/25 18:16 Temperature Pulse Rate 78 76 Respiratory Rate 29 H 26 H 21 H Blood Pressure 164/58 H Pulse Oximetry 100 Oxygen Delivery 07/27/25 18:30 07/27/25 18:31 07/27/25 18:45 Temperature Pulse Rate 75 76 78 Respiratory Rate 19 20 12 Blood Pressure 141/52 H Pulse Oximetry 99 Oxygen Delivery 07/27/25 18:46 07/27/25 19:11 07/27/25 19:15 Temperature Pulse Rate 76 78 78 Respiratory Rate 14 20 20 Blood Pressure 157/70 H Pulse Oximetry Oxygen Delivery 07/27/25 19:16 07/27/25 20:05 07/27/25 20:14 Temperature 97.6 F Pulse Rate 77 73 77 Respiratory Rate 20 16 20 Blood Pressure 158/66 H 148/49 H 158/66 H Pulse Oximetry 98 99 Oxygen Delivery 07/27/25 20:30 07/27/25 20:30 07/27/25 21:38 Temperature Pulse Rate 77 77 Respiratory Rate 20 Blood Pressure Pulse Oximetry 99 97 Oxygen Delivery Room Air Room Air 07/27/25 22:00 07/27/25 23:54 07/28/25 00:00 Temperature 97.7 F Pulse Rate 74 74 74 Respiratory Rate 18 18 Blood Pressure 141/50 H Pulse Oximetry 97 97 Oxygen Delivery Room Air 07/28/25 00:00 07/28/25 02:00 07/28/25 03:48 Temperature Pulse Rate 74 76 72 Respiratory Rate 18 Blood Pressure Pulse Oximetry 97 Oxygen Delivery Room Air 07/28/25 03:48 07/28/25 04:40 07/28/25 06:00 Temperature 97.8 F Pulse Rate 72 81 78 Respiratory Rate 16 Blood Pressure 150/56 H Pulse Oximetry 99 Oxygen Delivery 07/28/25 08:00 Temperature 98.4 F Pulse Rate 78 Respiratory Rate 16 Blood Pressure 133/53 L Pulse Oximetry 98 Oxygen Delivery Intake/Output Intake/Output: Intake & Output 07/25/25 07/26/25 07/27/25 07/28/25 23:59 23:59 23:59 23:59 Intake Total 1125 Balance 1125 Meds/Results Medications: Active Medications Generic Name Dose Route Start Last Admin Trade Name Freq PRN Reason Stop Dose Admin Albuterol 2 puff 07/27/25 22:41 Albuterol Sulfate (*Sp) Aerosol 1 Puff INHALATION Q6HRT PRN Shortness Of Breath Or Wheezin Atorvastatin Calcium 10 mg 07/27/25 22:45 07/27/25 22:51 Atorvastatin 10 Mg Tablet BY MOUTH Not Given HS KOBE Bupropion HCl 300 mg 07/28/25 09:00 Bupropion Hcl Xl (24 Hr) 150 Mg Tabcr PO DAILY KOBE Dextrose 12.5 gm 07/27/25 17:22 Dextrose 50% 25 Gm/50 Ml Syringe IV PUSH PRN PRN Hypoglycemia Protocol Gabapentin 600 mg 07/28/25 09:00 Gabapentin 300 Mg Capsule PO QAM KOBE Gabapentin 300 mg 07/28/25 12:00 Gabapentin 300 Mg Capsule PO DAILY@1200,2100 KOBE Glucagon 1 mg 07/27/25 17:22 Glucagon For Inj 1 Mg Vial IM PRN PRN Hypoglycemia Protocol Glucose 15 gm 07/27/25 17:22 Glucose Oral Gel 15 Gm Of Glucse In 37.5 Gm Tube PO PRN PRN Hypoglycemia Protocol Hydralazine HCl 25 mg 07/28/25 09:00 Hydralazine Hcl 25 Mg Tablet PO TID KOBE Sodium Bicarbonate 150 meq/ 1,100 mls @ 75 mls/hr 07/27/25 17:00 07/27/25 18:17 Dextrose IV CONT 75 mls/hr .[id number] KOBE Administration Dextrose 1,000 mls @ 100 mls/hr 07/27/25 17:22 Dextrose 5% 1,000 Ml IVPB PRN PRN Hypoglycemia Protocol Meropenem 1 gm/ Sodium 100 mls @ 200 mls/hr 07/28/25 18:00 Chloride IVPB Q24H KOBE Insulin Aspart 3 - 6 units 07/28/25 08:00 07/28/25 07:41 Insulin Aspart (*Bkc) 100 Units/Ml SUB-Q Not Given TIDWM [facility] Protocol Miscellaneous Information 0 each 07/28/25 00:01 Rexulti May Use From Home Send To Pharmacy For Verification Once Brought In XX 08/27/25 00:00 CLARIFY KOBE Nicotine 1 patch 07/28/25 09:00 Nicotine (*Pbkc) 21 Mg Patch TRANSDERM DAILY [facility] Non-Formulary Medication 2 mg 07/28/25 09:00 Brexpiprazole [Rexulti] PO 08/27/25 08:59 DAILY KOBE Pantoprazole Sodium 40 mg 07/28/25 09:00 Pantoprazole 40 Mg Tablet PO DAILY KOBE Sertraline HCl 100 mg 07/28/25 09:00 Sertraline Hcl 50 Mg Tablet PO DAILY KOBE Sodium Bicarbonate 650 mg 07/28/25 09:00 Sodium Bicarbonate Tab 650 Mg Tablet PO BID KOBE Trazodone HCl 150 mg 07/27/25 22:41 Trazodone Hcl 50 Mg Tablet PO HS PRN Insomnia Vitamin D 25 mcg 07/28/25 09:00 Cholecalciferol (Vitamin D3) 25 Mcg (1,000 Units) Tablet PO DAILY [facility] Radiology Results: ITS Impressions Chest X-Ray 07/27/25 14:51 IMPRESSION: Findings in the inferior left hemithorax as described. Head CT 07/27/25 15:50 Impression: 1.No acute intracranial abnormality. Abdomen/Pelvis CT 07/27/25 15:57 IMPRESSION: 1. Borderline bladder wall thickening and subtle haziness to the surrounding fat consistent with mild cystitis. Correlate with urinalysis. 2. Pleural thickening along the margins of a small likely complex left pleural effusion. 3. Mild cardiomegaly. 4. Nonspecific splenomegaly. 5. Small fat-containing umbilical hernia. Labs Labs: Laboratory Results - last 24 hr 07/27/25 07/27/25 07/27/25 14:05 14:39 15:06 WBC 14.9 H RBC 2.93 L Hgb 9.5 L Hct 30.2 L MCV 103.1 H MCH 32.4 MCHC 31.5 L RDW 15.8 H Plt Count 169 D MPV 11.0 H Immature Gran % (Auto) 0.7 H Neut % (Auto) 81.7 H Lymph % (Auto) 12.7 L [place] % (Auto) 4.4 Eos % (Auto) 0.4 Baso % (Auto) 0.1 L Lymph # (Auto) 1.89 [place] # (Auto) 0.7 H Eos # (Auto) 0.1 Baso # (Auto) 0.0 Abs Immat Gran (auto) 0.11 H Absolute Neuts (auto) 12.1 H Absolute Nucleated RBC 0.000 Nucleated RBC % 0.0 Puncture Site ABG pH ABG pCO2 ABG pO2 ABG PO2/FiO2 Ratio ABG HCO3 ABG O2 Saturation ABG O2 Content ABG Base Excess A-a Gradient Oxyhemoglobin Total Hemoglobin O2 Delivery Device O2 Liters/Min FiO2 Sodium 138 Potassium 3.5 Chloride 117 H Carbon Dioxide < 5 L Anion Gap BUN 40 H Creatinine 6.50 H Estim Creat Clear Calc Not Reportable Estimated GFR 7 L Glucose 99 POC Capillary Glucose Hemoglobin A1c Lactic Acid Calcium 8.5 Phosphorus Magnesium Total Bilirubin 0.4 AST 26 ALT 17 Alkaline Phosphatase 165 H Ammonia Total Protein 7.0 Albumin 3.7 Beta-Hydroxybutyrate/Acetoacetate Urine Color Urine Appearance Urine pH Ur Specific [place] Urine Protein Urine Glucose (UA) Urine Ketones Ur Blood (Man) Urine Nitrate Urine Bilirubin Urine Urobilinogen Add Ur Microanalysis Leukocyte Esterase Rfl Urine RBC Urine WBC Ur Squamous Epith Cells Urine Bacteria Urine Casts Hep Bs Antigen Hep Bs Antibody Influenza A (RT-PCR) Negative Influenza B (RT-PCR) Negative RSV (RT-PCR) Negative SARS-CoV-2 RNA (RT-PCR) Negative 07/27/25 07/27/25 07/27/25 15:50 16:19 16:20 WBC RBC Hgb Hct MCV MCH MCHC RDW Plt Count MPV Immature Gran % (Auto) Neut % (Auto) Lymph % (Auto) [place] % (Auto) Eos % (Auto) Baso % (Auto) Lymph # (Auto) [place] # (Auto) Eos # (Auto) Baso # (Auto) Abs Immat Gran (auto) Absolute Neuts (auto) Absolute Nucleated RBC Nucleated RBC % Puncture Site Right radial ABG pH 7.095 L* ABG pCO2 21.2 L* ABG pO2 101.3 H ABG PO2/FiO2 Ratio 4.82 ABG HCO3 6.4 L ABG O2 Saturation 95.4 ABG O2 Content 14.3 L ABG Base Excess -21.6 A-a Gradient 23.0 Oxyhemoglobin 94.9 Total Hemoglobin 10.6 L O2 Delivery Device Room air O2 Liters/Min 0.0 FiO2 21 Sodium Potassium Chloride Carbon Dioxide Anion Gap BUN Creatinine Estim Creat Clear Calc Estimated GFR Glucose POC Capillary Glucose Hemoglobin A1c Lactic Acid 0.7 Calcium Phosphorus Magnesium 1.7 Total Bilirubin AST ALT Alkaline Phosphatase Ammonia 15 Total Protein Albumin Beta-Hydroxybutyrate/Acetoacetate 0.67 H Urine Color Urine Appearance Urine pH Ur Specific [place] Urine Protein Urine Glucose (UA) Urine Ketones Ur Blood (Man) Urine Nitrate Urine Bilirubin Urine Urobilinogen Add Ur Microanalysis Leukocyte Esterase Rfl Urine RBC Urine WBC Ur Squamous Epith Cells Urine Bacteria Urine Casts Hep Bs Antigen Hep Bs Antibody Influenza A (RT-PCR) Influenza B (RT-PCR) RSV (RT-PCR) SARS-CoV-2 RNA (RT-PCR) 07/27/25 07/27/25 07/28/25 16:23 21:10 04:32 WBC 12.1 H RBC 2.72 L Hgb 8.6 L Hct 27.5 L MCV 101.1 H MCH 31.6 MCHC 31.3 L RDW 15.6 H Plt Count 127 L MPV 10.1 Immature Gran % (Auto) Neut % (Auto) Lymph % (Auto) [place] % (Auto) Eos % (Auto) Baso % (Auto) Lymph # (Auto) [place] # (Auto) Eos # (Auto) Baso # (Auto) Abs Immat Gran (auto) Absolute Neuts (auto) Absolute Nucleated RBC Nucleated RBC % Puncture Site ABG pH ABG pCO2 ABG pO2 ABG PO2/FiO2 Ratio ABG HCO3 ABG O2 Saturation ABG O2 Content ABG Base Excess A-a Gradient Oxyhemoglobin Total Hemoglobin O2 Delivery Device O2 Liters/Min FiO2 Sodium 139 Potassium 2.7 L* Chloride 118 H Carbon Dioxide < 5 L Anion Gap BUN 40 H Creatinine 5.79 H Estim Creat Clear Calc 10 Estimated GFR 8 L Glucose 122 H POC Capillary Glucose 165 H Hemoglobin A1c 4.4 Lactic Acid Calcium 8.0 L Phosphorus 5.2 H Magnesium Total Bilirubin AST ALT Alkaline Phosphatase Ammonia Total Protein Albumin 3.0 L Beta-Hydroxybutyrate/Acetoacetate Urine Color Yellow Urine Appearance Turbid H Urine pH 5.0 Ur Specific [place] 1.011 Urine Protein 2+ H Urine Glucose (UA) Negative Urine Ketones Negative Ur Blood (Man) 3+ H Urine Nitrate Positive H Urine Bilirubin Negative Urine Urobilinogen 0.2 Add Ur Microanalysis Reviewed Leukocyte Esterase Rfl 3+ H Urine RBC 0-2 Urine WBC >100 H Ur Squamous Epith Cells Moderate Urine Bacteria 4+ H Urine Casts 3-5 Hep Bs Antigen Negative Hep Bs Antibody Negative Influenza A (RT-PCR) Influenza B (RT-PCR) RSV (RT-PCR) SARS-CoV-2 RNA (RT-PCR) 07/28/25 07:30 WBC RBC Hgb Hct MCV MCH MCHC RDW Plt Count MPV Immature Gran % (Auto) Neut % (Auto) Lymph % (Auto) [place] % (Auto) Eos % (Auto) Baso % (Auto) Lymph # (Auto) [place] # (Auto) Eos # (Auto) Baso # (Auto) Abs Immat Gran (auto) Absolute Neuts (auto) Absolute Nucleated RBC Nucleated RBC % Puncture Site ABG pH ABG pCO2 ABG pO2 ABG PO2/FiO2 Ratio ABG HCO3 ABG O2 Saturation ABG O2 Content ABG Base Excess A-a Gradient Oxyhemoglobin Total Hemoglobin O2 Delivery Device O2 Liters/Min FiO2 Sodium Potassium Chloride Carbon Dioxide Anion Gap BUN Creatinine Estim Creat Clear Calc Estimated GFR Glucose POC Capillary Glucose 144 H Hemoglobin A1c Lactic Acid Calcium Phosphorus Magnesium Total Bilirubin AST ALT Alkaline Phosphatase Ammonia Total Protein Albumin Beta-Hydroxybutyrate/Acetoacetate Urine Color Urine Appearance Urine pH Ur Specific [place] Urine Protein Urine Glucose (UA) Urine Ketones Ur Blood (Man) Urine Nitrate Urine Bilirubin Urine Urobilinogen Add Ur Microanalysis Leukocyte Esterase Rfl Urine RBC Urine WBC Ur Squamous Epith Cells Urine Bacteria Urine Casts Hep Bs Antigen Hep Bs Antibody Influenza A (RT-PCR) Influenza B (RT-PCR) RSV (RT-PCR) SARS-CoV-2 RNA (RT-PCR)
[2025-07-28] MEDS: SERTRALINE HCL 50 MG TABLET 100 MG PO (09:47)
[2025-07-28] MEDS: PANTOPRAZOLE 40 MG TABLET PO (09:47)
[2025-07-28] MEDS: buPROPion HCL XL (24 HR) 150 MG TABCR 300 MG PO (09:47)
[2025-07-28] MEDS: SODIUM BICARBONATE TAB 650 MG TABLET PO (09:47)
[2025-07-28] MEDS: CHOLECALCIFEROL (VITAMIN D3) 25 MCG (1,000 UNITS) TABLET PO (09:47)
[2025-07-28] MEDS: GABAPENTIN 300 MG CAPSULE 600 MG PO (09:47)
[2025-07-28] MEDS: NICOTINE (*PBKC) 21 MG PATCH 1 PATCH TRANSDERM (09:48)
--- NOTE | 2025-07-28 10:50 | WPDURCON ---
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 She was seen in our office last week and counseled on preventative measures as outlined above. Upper urinary tract imaging with noncontrast CT scan abdomen pelvis is unremarkable. Recent urine culture growing strep B with sensitivities to amoxicillin/clavulanic acid, cefoxitin, ertapenem, gentamicin, miropenem, nitrofurantoin, pip/tazo, tobramycin and Bactrim She should follow-up in our office following discharge for vaginal examination and possible cystoscopy Urology Consult Note HPI Date Seen: 07/28/25 Requesting Physician: Branden Hendrickson MD Primary Care Provider: Federico Meza MD Consult Narrative Narrative: Jeanette Peres is a 60 year old female who was just seen in our office last week by our female urology nurse practitioner in regards to recurrent urinary tract infection. Upper tract imaging with a noncontrast CT scan on this admission shows no significant upper urinary tract pathology. She was counseled in preventative strategies for recurrent urinary tract infection including hydration, cranberry supplements antibacterial wipes. A urine culture was obtained on 07/24 25 the grew 100,000 Streptococcus group B bacteria. This is sensitive to the meropenem she is currently on. It is also sensitive to oral abx.including amoxicillin/clavulanic acid, nitrofurantoin and Bactrim DS. Patient currently denies any significant irritable voiding symptoms Review of Systems Review of Systems: All systems reviewed & are unremarkable except as noted in HPI and below PMFSH Past Medical History Medical History (Updated 07/28/25 @ 10:53 by Sunil Mcnulty MD) Right BKA infection Acute on chronic kidney failure Clostridium difficile colitis Amputation of leg Right [id number] UTI due to extended-spectrum beta lactamase (ESBL) producing Escherichia coli Application of prosthesis S/P fecal transplant 06/2023 Wound discharge Nausea and vomiting in adult Leg edema, left Anemia Stage 4 chronic kidney disease Overweight with body mass index (BMI) of 28 to 28.9 in adult Myalgia Inflammatory arthritis Microscopic colitis Adult BMI 31.0-31.9 kg/sq m Recurrent Clostridioides difficile infection Obese C. difficile diarrhea Gall bladder disease Allergies Hematochezia Abdominal adhesions Abdominal distention Abnormal colonoscopy Atelectasis of both lungs Carpal tunnel syndrome of left wrist Daytime hypersomnolence Diabetic foot infection Dyspnea on exertion Dysthymia Essential hypertension Hammertoes of both feet Hypovitaminosis D ILD (interstitial lung disease) Lactic acidemia Lymphedema MDD (major depressive disorder), recurrent episode, with atypical features Microalbuminuria due to type 2 diabetes mellitus Mixed hyperlipidemia Onychogryphosis Other screening mammogram PTSD (post-traumatic stress disorder) Peripheral polyneuropathy Pes cavus Proteinuria, unspecified Psychophysiological insomnia Pulmonary nodule Rash and nonspecific skin eruption Spondylosis of lumbar region without myelopathy or radiculopathy Tinea corporis Tinea unguium Tobacco use disorder Trigger finger of left thumb Type 2 diabetes mellitus with hyperglycemia, without long-term current use of insulin 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 History of blood transfusion Bipolar disorder Chronic back pain Fibromyalgia Post-menopausal Tubal Pneumonia Hyperlipidemia Surgical History Surgical History Status post insertion of dialysis catheter S/P partial hysterectomy S/P ventral herniorrhaphy Status post ORIF of fracture of ankle Right ankle History of hysterectomy History of tubal ligation History of breast biopsy left breast History of dilatation and curettage History of cholecystectomy History of umbilical hernia repair History of cardiac catheterization Family History Family History Father due to motor vehicle traffic accident Hypertension Bowel cancer Grandparent Diabetes mellitus Other Diabetes mellitus Mother due to motor vehicle traffic accident Sibling Club foot COVID-19 Other Family history of heart disease in male family member before age 55 Social History Social History (Updated 07/27/25 @ 22:19 by Yoana Lua APRN) Social History: The patient is and lives in [place] with her . She smoked 1.5 packs of cigarettes per day for many years, and quit smoking. However for the last 6 months she has been smoking up to half a pack of cigarettes per day due to stress. No excessive alcohol use. She denies illicit drug use. She designates her Will as her surrogate decision maker and she wishes to be a full code. 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 The patient is applying for disability. She is unable to work at this time. She cannot stand on her foot she has severe neuropathy. She has 2 children. 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 Substance use: never Substance use type: does not use Other substance usage details: A TEENAGER Do You Feel Safe in your Home?: Yes Lack of Transportation: No Lack of Food: Never True Current Housing: I Have Housing Concerned About Future Housing: No Difficulty Paying Gas/Electric Bills: No Difficulty Paying for Meds: No Currently Unemployed: No Education: High School Diploma/GED Difficulty w/ Childcare or Family Care: No Living arrangements: with family Occupation/Education: retired 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 Gender identity (if verbalized by the patient): Female Sexual Orientation (if Verbalized by the Patient): Straight or Heterosexual Spiritual care concerns: No Agree to blood products: Yes Meds Home Medications and Allergies Home Medications ?Medication ?Instructions ?Recorded ?Confirmed ?Type trazodone 150 mg tablet 150 mg PO HS PRN Insomnia 11/04/19 07/27/25 History hydralazine 25 mg tablet 25 mg PO TID 11/30/22 07/27/25 History 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-glucose,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,cont #1 ea 01/14/23 07/27/25 Rx (Dexcom G7 Final Assembly Inspector) pen needle, diabetic 32 gauge x #600 ea 02/24/23 07/27/25 Rx 5/32 (BD Ultra-Fine Erika Pen Needle) insulin degludec 200 unit/mL (3 12 unit (0.06 mL) subcut QHS #9 mL 12/30/23 07/27/25 Rx mL) subcutaneous pen (Tresiba FlexTouch U-200 insulin) brexpiprazole 2 mg tablet (Rexulti) 2 mg PO DAILY 03/03/24 07/27/25 History cholecalciferol (vitamin D3) 25 25 mcg PO DAILY 03/03/24 07/27/25 History mcg (1,000 unit) chewable tablet (Vitamin D3) promethazine 25 mg tablet 25 mg PO TID PRN Nausea 03/13/24 07/27/25 History albuterol sulfate 90 mcg/actuation 2 inh inhalation Q6H PRN shortness 05/22/24 07/27/25 Rx aerosol inhaler of breath or wheezing #8.5 grams cyanocobalamin (vitamin B-12) 50 50 mcg PO DAILY 07/25/24 07/27/25 History mcg tablet (Vitamin B-12) furosemide 20 mg tablet See Rx Instructions .Route 02/09/25 07/27/25 Rx .COMPLEX #90 tabs atorvastatin 10 mg tablet See Rx Instructions .Route 02/26/25 07/27/25 Rx .COMPLEX #90 tabs blood-glucose sensor (Dexcom G7 #9 ea 02/26/25 07/27/25 Rx Sensor device) insulin lispro 200 unit/mL (3 mL) 4 unit (0.02 mL) subcut TIDWM #24 04/03/25 07/27/25 Rx subcutaneous pen (Humalog KwikPen mL U-200 Insulin) sertraline 100 mg tablet 100 mg PO DAILY 05/23/25 07/27/25 History gabapentin 300 mg capsule See Rx Instructions PO .COMPLEX 06/07/25 07/27/25 Rx #120 caps nicotine 21 mg/24 hr daily 1 patch transdermal DAILY #28 ea 06/07/25 07/27/25 Rx transdermal patch (Nicoderm CQ) sodium bicarbonate 650 mg tablet 650 mg PO BID #60 tabs 07/04/25 07/27/25 Rx bupropion HCl 300 mg 24 hr tablet, 300 mg PO DAILY 07/09/25 07/27/25 History extended release pantoprazole 40 mg tablet,delayed 40 mg PO DAILY 07/09/25 07/27/25 History release potassium chloride 20 mEq 20 meq PO BID #14 tabs 07/20/25 07/27/25 Rx tablet,extended release(part/cryst) (Klor-Con M) Allergies Allergy/AdvReac Type Severity Reaction Status Date / Time ceftriaxone Allergy Severe Rash Verified 07/27/25 20:36 adhesive Allergy Intermediate Itching/ Verified 07/27/25 20:36 SWELLING / RASH povidone-iodine Allergy Intermediate rash Verified 07/27/25 20:36 soap (From Betadine) Allergy Intermediate Rash Verified 07/27/25 20:36 Vital Signs Vital Signs - 24 hr 07/27/25 11:31 07/27/25 14:08 07/27/25 17:01 Temperature 98.4 F Pulse Rate 79 76 Respiratory Rate 18 16 Blood Pressure 138/96 H Pulse Oximetry 100 Oxygen Delivery 07/27/25 17:02 07/27/25 17:03 07/27/25 17:17 Temperature Pulse Rate 74 86 Respiratory Rate 12 16 19 Blood Pressure 147/56 H 147/56 H Pulse Oximetry 100 100 100 Oxygen Delivery 07/27/25 17:34 07/27/25 17:45 07/27/25 17:46 Temperature Pulse Rate 76 76 76 Respiratory Rate 19 18 21 H Blood Pressure 140/66 Pulse Oximetry 100 99 99 Oxygen Delivery 07/27/25 18:01 07/27/25 18:15 07/27/25 18:16 Temperature Pulse Rate 78 76 Respiratory Rate 29 H 26 H 21 H Blood Pressure 164/58 H Pulse Oximetry 100 Oxygen Delivery 07/27/25 18:30 07/27/25 18:31 07/27/25 18:45 Temperature Pulse Rate 75 76 78 Respiratory Rate 19 20 12 Blood Pressure 141/52 H Pulse Oximetry 99 Oxygen Delivery 07/27/25 18:46 07/27/25 19:11 07/27/25 19:15 Temperature Pulse Rate 76 78 78 Respiratory Rate 14 20 20 Blood Pressure 157/70 H Pulse Oximetry Oxygen Delivery 07/27/25 19:16 07/27/25 20:05 07/27/25 20:14 Temperature 97.6 F Pulse Rate 77 73 77 Respiratory Rate 20 16 20 Blood Pressure 158/66 H 148/49 H 158/66 H Pulse Oximetry 98 99 Oxygen Delivery 07/27/25 20:30 07/27/25 20:30 07/27/25 21:38 Temperature Pulse Rate 77 77 Respiratory Rate 20 Blood Pressure Pulse Oximetry 99 97 Oxygen Delivery Room Air Room Air 07/27/25 22:00 07/27/25 23:54 07/28/25 00:00 Temperature 97.7 F Pulse Rate 74 74 74 Respiratory Rate 18 18 Blood Pressure 141/50 H Pulse Oximetry 97 97 Oxygen Delivery Room Air 07/28/25 00:00 07/28/25 02:00 07/28/25 03:48 Temperature Pulse Rate 74 76 72 Respiratory Rate 18 Blood Pressure Pulse Oximetry 97 Oxygen Delivery Room Air 07/28/25 03:48 07/28/25 04:40 07/28/25 06:00 Temperature 97.8 F Pulse Rate 72 81 78 Respiratory Rate 16 Blood Pressure 150/56 H Pulse Oximetry 99 Oxygen Delivery 07/28/25 08:00 Temperature 98.4 F Pulse Rate 78 Respiratory Rate 16 Blood Pressure 133/53 L Pulse Oximetry 98 Oxygen Delivery Exam Const: General: no acute distress Resp: Effort & Inspection: normal respiratory effort GI: Inspection: non-distended GI Palp: No abdominal tenderness and No Guarding due to palpation present (GI) Auscultation: normal bowel sounds Results Labs 07/28/25 04:32 07/28/25 04:32 Labs: Short CBC 07/27/25 07/28/25 Range/Units 14:05 04:32 WBC 14.9 H 12.1 H (4.5-10.0) K/mm3 Hgb 9.5 L 8.6 L (12.0-15.0) g/dL Hct 30.2 L 27.5 L (37.0-47.0) % Plt Count 169 D 127 L (150-375) k/mm3 BMP 07/27/25 07/28/25 14:39 04:32 Sodium 138 139 Potassium 3.5 2.7 L* Chloride 117 H 118 H Carbon Dioxide < 5 L < 5 L BUN 40 H 40 H Creatinine 6.50 H 5.79 H Glucose 99 122 H Calcium 8.5 8.0 L Liver Function 07/27/25 07/28/25 Range/Units 14:39 04:32 Total Bilirubin 0.4 (0.2-1.3) mg/dL AST 26 (14-36) U/L ALT 17 (6-35) U/L Alkaline Phosphatase 165 H (38-126) U/L Albumin 3.7 3.0 L (3.5-5.1) g/dL Urine 07/27/25 Range/Units 16:23 Urine Color Yellow (Yellow) Urine Appearance Turbid H (Clear) Urine pH 5.0 (5.0-9.0) Ur Specific [place] 1.011 (1.001-1.035) Urine Protein 2+ H (Negative) mg/dL Urine Glucose (UA) Negative (Negative) mg/dL
--- NOTE | 2025-07-28 11:05 | PM.CNNEP ---
Assessment and Plan Assessment and plan (1) Stage 5 chronic kidney disease: Code(s): N18.5 - Chronic kidney disease, stage 5 Status: Acute Assessment and Plan: appears to have progressed to ESRD uremic symptoms (nausea + vomiting + poor appetite + fatigue/lethargy + altered mentation...etc) - suspect acute UTI may have precipitated worsening uremic symptoms persistent metabolic acidosis relative anemia HOWEVER, no critical electrolytes and volume status relatively unfortunately, AVF not likely to be used currently due to small size... 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 consult Surgery for tunneled HD catheter placement proceed with renal replacement therapy/dialysis once HD catheter placed (2) Metabolic acidosis: Code(s): E87.20 - Acidosis, unspecified Status: Acute Assessment and Plan: quite severe on presentation due to several issues: worsening renal dysfunction/failure acute infection (UTI) known diabetes known history of GI issues(?) attempting to compensate with bicarb gtt and oral sodium bicarbonate will likely fully correct once dialysis initiated (3) UTI (urinary tract infection): Code(s): N39.0 - Urinary tract infection, site not specified Status: Acute Assessment and Plan: as suggested by admission UA UA: with 3+ blood, positive nitrates, 3+ leukocyte esterase, urine wbc's greater than 100, and 4+ bacteria. follow culture data on antibiotics known history of recurrent UTIs Urology recommendations noted (4) Hypokalemia: Code(s): E87.6 - Hypokalemia Status: Resolved Assessment and Plan: due to several issues: poor oral intake (nausea/vomiting) bicarb fluids + oral bicarbonate supplementaion low magnesium cautiously IV and oral replacement as tolerated follow magnesium levels follow repeat K+ levels (5) Anemia: Qualifiers: Anemia type: unspecified type Qualified Code(s): D64.9 - Anemia, unspecified Code(s): D64.9 - Anemia, unspecified Status: Acute Assessment and Plan: presumably due to advanced CKD some dilutional effects from IVF resuscitation no evidence of bleeding consider checking iron studies however, would avoid IV venofer in the the context of a possible infection consider ARMANDO hwil hospitalized (6) Hypertension: Code(s): I10 - Essential (primary) hypertension Status: Chronic Assessment and Plan: fluctuating at this time PRN medications follow trend of hemodynamics (7) IDDM (insulin dependent diabetes mellitus): Status: Chronic Assessment and Plan: follow accu-cheks glycemic control per hospitalist (8) Generalized weakness: Code(s): R53.1 - Weakness Status: Acute Assessment and Plan: presumably due to advanced CKD in conjunction with uremia and acute infection/UTI PT/OT continue supportive therapy Long and extensive discussion (> 20 minutes) with the patient regarding her advanced kidney disease in conjunction with severe metabolic acidosis as well as a variety of uremic symptoms (nausea, vomiting, poor oral intake, diminished appetite, altered mentation, fatigue/lethargy...etc) and my concern that she may have reached a point where we may have to start renal replacement therapy / dialysis sooner than later. Is very possible that her acute infection ( UTI) may have pushed the symptoms to the forefront but even prior to this urinary tract infection she had some mild uremic symptoms when I saw her in the office about a month ago. The patient had originally want to wait till after the holidays to start dialysis but I have serious concerns I do not think she will be able to wait this long given evidence to date. the patient appears to be in agreement with starting dialysis now. Unfortunately, her AVF is still immature and not likely to be able to be used for dialysis needs. I will consult General surgery for a tunneled dialysis catheter placement for initiation of renal replacement therapy I will continue to follow the patient with you while he remains hospitalized and make further recommendations as deemed necessary. Thank you for allowing me to participate in the care of this patient. History of Present Illness Reason for Consult Consult date: 07/28/25 Reason for consult: chronic renal failure Chief Complaint Chief complaint: Metabolic acidosis, UTI, Renal failure History of Present Illness Narrative: The patient is a 60-year-old female with a past medical history as outlined below who presented to [facility] Emergency Room with complaints of generalized weakness/fatigue and confusion. She reports the symptoms of weakness, fatigue, lethargy, confusion as well as forgetfulness for about the 2 weeka ago if not longer. Apparently, on a recent urology office visit, there was a concern that she may have a urinary tract infection based on outpatient urine testing. However, given her propensity for C diff colitis and antibiotic had not yet been prescribed as an want to make sure what kind of infection she had in the appropriate antibiotic was selected. A other associated symptoms include increased somnolence, diminished oral intake, poor appetite, and right lower quadrant abdominal tenderness. As all these symptoms seem to be progressively getting worse, she presented to the emergency room for further assessment. Workup and evaluation emergency room demonstrated the patient be hemodynamically stable and afebrile. Routine the lab work demonstrated a white blood cell count of 14.9, hemoglobin 9.5, platelet count of 169, sodium 138, potassium 3.5, chloride 117, bicarb less than 5, BUN 40, creatinine 6.5, glucose 99, calcium 8.5, albumin 3.7, normal lactic acid, magnesium 1.7, and ammonia level of 15. Viral testing for influenza, RSV, and COVID was negative and her urinalysis was highly suggestive of urinary tract infection with a turbid appearance, 2+ protein, 3+ blood, 3+ leukocyte esterase, greater than 100 white blood cells, and 4+ bacteria. Her chest x-ray noted inferior left hemithorax stranding with atelectasis versus infiltrate. CT scan of her head showed no acute intracranial pathology and her CT scan of the abdomen pelvis was significant for borderline bladder wall thickening and subtle haziness to the surrounding fat consistent with mild cystitis, small likely complex left pleural effusion, mild cardiomegaly, small fat containing umbilical hernia and nonspecific splenomegaly. Given her symptoms in conjunction with her laboratory and imaging findings, appropriate cultures were obtained and she was started on broad-spectrum IV antibiotics as well as IV fluids with bicarb given her severe acidosis and she was subsequently admitted to the hospital for further evaluation and therapy. Since her admission, repeat labs this morning showed only minimal improvement in her acidosis in association with significant hypokalemia. Oral sodium bicarbonate has been initiated as well as IV potassium replacement. Her mentation seems to be doing a bit better but she still feels quite fuzzy about everything. Renal consultation was requested due to her known advanced chronic kidney disease. The patient is very familiar to me as I follow her in my office for management of her chronic kidney disease. Her kidney disease is due to biopsy-proven diabetic nephropathy/nephrosclerosis along with contributions from hypertension, and vascular disease in association with recurrent bouts of acute kidney injury/ acute renal failure secondary to her previous urinary tract infections as well as recurrent C diff colitis. Unfortunately, her kidney disease has been slowly and progressively getting worse in the last year with her GFR less than 15 cc/minute in that time frame. In anticipation of her need for renal replacement therapy / dialysis, she was referred to surgery for dialysis access placement. She was initially interested in peritoneal dialysis but due to her previous abdominal surgeries, this was not a feasible option and hence she had a left AV fistula placed several months ago. On my last office visit with her about a month ago, her AVF was maturing but still seemed a bit small For use so I recommended that she follow-up with her surgeon to ascertain if further intervention is needed to improve her AVF but I do not think she did this. Furthermore, on that last office visit, she had some subtle signs and symptoms suggestive of uremia which prompted my conversation with her about starting dialysis sooner than later. However, the patient did not want to proceed with dialysis at that time and was trying to wait till after the holidays if possible until the need for renal replacement therapy/dialysis could be instituted. However, as evidence by her symptoms and issues on presentation to the ER, it seems clear that her uremic per symptoms have progressed although I suspect her underlying urinary tract infection may have potentiated her symptoms as well. She does not have any critical electrolyte abnormalities but her severe acidosis is quite concerning with only minimal improvement with a bicarb drip as well as sodium bicarbonate supplements. Currently, her mentation seems relatively stable if not a bit slower than her baseline but she does not feel very good and is now having symptoms of nausea and vomiting at the time of my visit. Review of Systems Review of Systems: As per HPI. [facility] Past Medical History Medical History (Updated 07/28/25 @ 10:53 by Sunil Mcnulty MD) Right BKA infection Acute on chronic kidney failure Clostridium difficile colitis Amputation of leg Right [id number] UTI due to extended-spectrum beta lactamase (ESBL) producing Escherichia coli Application of prosthesis S/P fecal transplant 06/2023 Wound discharge Nausea and vomiting in adult Leg edema, left Anemia Stage 4 chronic kidney disease Overweight with body mass index (BMI) of 28 to 28.9 in adult Myalgia Inflammatory arthritis Microscopic colitis Adult BMI 31.0-31.9 kg/sq m Recurrent Clostridioides difficile infection Obese C. difficile diarrhea Gall bladder disease Allergies Hematochezia Abdominal adhesions Abdominal distention Abnormal colonoscopy Atelectasis of both lungs Carpal tunnel syndrome of left wrist Daytime hypersomnolence Diabetic foot infection Dyspnea on exertion Dysthymia Essential hypertension Hammertoes of both feet Hypovitaminosis D ILD (interstitial lung disease) Lactic acidemia Lymphedema MDD (major depressive disorder), recurrent episode, with atypical features Microalbuminuria due to type 2 diabetes mellitus Mixed hyperlipidemia Onychogryphosis Other screening mammogram PTSD (post-traumatic stress disorder) Peripheral polyneuropathy Pes cavus Proteinuria, unspecified Psychophysiological insomnia Pulmonary nodule Rash and nonspecific skin eruption Spondylosis of lumbar region without myelopathy or radiculopathy Tinea corporis Tinea unguium Tobacco use disorder Trigger finger of left thumb Type 2 diabetes mellitus with hyperglycemia, without long-term current use of insulin 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 History of blood transfusion Bipolar disorder Chronic back pain Fibromyalgia Post-menopausal Tubal Pneumonia Hyperlipidemia Surgical History Surgical History Status post insertion of dialysis catheter S/P partial hysterectomy S/P ventral herniorrhaphy Status post ORIF of fracture of ankle Right ankle History of hysterectomy History of tubal ligation History of breast biopsy left breast History of dilatation and curettage History of cholecystectomy History of umbilical hernia repair History of cardiac catheterization Family History Family History Father due to motor vehicle traffic accident Hypertension Bowel cancer Grandparent Diabetes mellitus Other Diabetes mellitus Mother due to motor vehicle traffic accident Sibling Club foot COVID-19 Other Family history of heart disease in male family member before age 55 Social History Social History (Updated 07/27/25 @ 22:19 by Yoana Lua APRN) Social History: The patient is and lives in [place] with her . She smoked 1.5 packs of cigarettes per day for many years, and quit smoking. However for the last 6 months she has been smoking up to half a pack of cigarettes per day due to stress. No excessive alcohol use. She denies illicit drug use. She designates her Will as her surrogate decision maker and she wishes to be a full code. 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 The patient is applying for disability. She is unable to work at this time. She cannot stand on her foot she has severe neuropathy. She has 2 children. 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 Substance use: never Substance use type: does not use Other substance usage details: A TEENAGER Do You Feel Safe in your Home?: Yes Lack of Transportation: No Lack of Food: Never True Current Housing: I Have Housing Concerned About Future Housing: No Difficulty Paying Gas/Electric Bills: No Difficulty Paying for Meds: No Currently Unemployed: No Education: High School Diploma/GED Difficulty w/ Childcare or Family Care: No Living arrangements: with family Occupation/Education: retired 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 Gender identity (if verbalized by the patient): Female Sexual Orientation (if Verbalized by the Patient): Straight or Heterosexual Spiritual care concerns: No Agree to blood products: Yes Meds Home Medications and Allergies Home Medications ?Medication ?Instructions ?Recorded ?Confirmed ?Type trazodone 150 mg tablet 150 mg PO HS PRN Insomnia 11/04/19 07/27/25 History hydralazine 25 mg tablet 25 mg PO TID 11/30/22 07/27/25 History blood-glucose,delivery analyst,cont #1 ea 01/14/23 07/27/25 Rx (Dexcom G7 Medical Device Sales Representative) pen needle, diabetic 32 gauge x #600 ea 02/24/23 07/27/25 Rx 5/32 (BD Ultra-Fine Erika Pen Needle) insulin degludec 200 unit/mL (3 12 unit (0.06 mL) subcut QHS #9 mL 12/30/23 07/27/25 Rx mL) subcutaneous pen (Tresiba FlexTouch U-200 insulin) brexpiprazole 2 mg tablet (Rexulti) 2 mg PO DAILY 03/03/24 07/27/25 History cholecalciferol (vitamin D3) 25 25 mcg PO DAILY 03/03/24 07/27/25 History mcg (1,000 unit) chewable tablet (Vitamin D3) promethazine 25 mg tablet 25 mg PO TID PRN Nausea 03/13/24 07/27/25 History albuterol sulfate 90 mcg/actuation 2 inh inhalation Q6H PRN shortness 05/22/24 07/27/25 Rx aerosol inhaler of breath or wheezing #8.5 grams cyanocobalamin (vitamin B-12) 50 50 mcg PO DAILY 07/25/24 07/27/25 History mcg tablet (Vitamin B-12) furosemide 20 mg tablet See Rx Instructions .Route 02/09/25 07/27/25 Rx .COMPLEX #90 tabs atorvastatin 10 mg tablet See Rx Instructions .Route 02/26/25 07/27/25 Rx .COMPLEX #90 tabs blood-glucose sensor (Dexcom G7 #9 ea 02/26/25 07/27/25 Rx Sensor device) insulin lispro 200 unit/mL (3 mL) 4 unit (0.02 mL) subcut TIDWM #24 04/03/25 07/27/25 Rx subcutaneous pen (Humalog KwikPen mL U-200 Insulin) sertraline 100 mg tablet 100 mg PO DAILY 05/23/25 07/27/25 History gabapentin 300 mg capsule See Rx Instructions PO .COMPLEX 06/07/25 07/27/25 Rx #120 caps nicotine 21 mg/24 hr daily 1 patch transdermal DAILY #28 ea 06/07/25 07/27/25 Rx transdermal patch (Nicoderm CQ) sodium bicarbonate 650 mg tablet 650 mg PO BID #60 tabs 07/04/25 07/27/25 Rx bupropion HCl 300 mg 24 hr tablet, 300 mg PO DAILY 07/09/25 07/27/25 History extended release pantoprazole 40 mg tablet,delayed 40 mg PO DAILY 07/09/25 07/27/25 History release potassium chloride 20 mEq 20 meq PO BID #14 tabs 07/20/25 07/27/25 Rx tablet,extended release(part/cryst) (Klor-Con M) Allergies Allergy/AdvReac Type Severity Reaction Status Date / Time ceftriaxone Allergy Severe Rash Verified 07/27/25 20:36 adhesive Allergy Intermediate Itching/ Verified 07/27/25 20:36 SWELLING / RASH povidone-iodine Allergy Intermediate rash Verified 07/27/25 20:36 soap (From Betadine) Allergy Intermediate Rash Verified 07/27/25 20:36 Vital Signs Vital Signs Temp Pulse Resp BP Pulse Ox O2 Del Method 07/28/25 11:00 98.7 F 82 24 H 171/54 H 99 07/28/25 08:00 74 07/28/25 08:00 98.4 F 78 16 133/53 L 98 07/28/25 06:00 78 07/28/25 04:40 97.8 F 81 16 150/56 H 99 07/28/25 03:48 72 07/28/25 03:48 72 18 97 Room Air 07/28/25 02:00 76 07/28/25 00:00 74 07/28/25 00:00 74 18 97 Room Air 07/27/25 23:54 97.7 F 74 18 141/50 H 97 07/27/25 22:00 74 07/27/25 21:38 97 Room Air 07/27/25 20:30 77 07/27/25 20:30 77 20 99 Room Air 07/27/25 20:14 77 20 158/66 H 99 07/27/25 20:05 97.6 F 73 16 148/49 H 98 07/27/25 19:16 77 20 158/66 H 07/27/25 19:15 78 20 07/27/25 19:11 78 20 07/27/25 18:46 76 14 157/70 H 07/27/25 18:45 78 12 07/27/25 18:31 76 20 141/52 H 99 07/27/25 18:30 75 19 07/27/25 18:16 76 21 H 164/58 H 100 07/27/25 18:15 78 26 H 07/27/25 18:01 29 H 07/27/25 17:46 76 21 H 140/66 99 07/27/25 17:45 76 18 99 07/27/25 17:34 76 19 100 07/27/25 17:17 86 19 100 07/27/25 17:03 74 16 147/56 H 100 07/27/25 17:02 12 147/56 H 100 07/27/25 17:01 16 07/27/25 14:08 76 Exam Narrative: GENERAL APPEARANCE: mildly ill-appearing female in no acute distress HEENT: normocephalic, atraumatic, normal conjunctiva and sclera, nares patient NECK: no lymphadenopathy, thyromegaly, or JVD MOUTH: normal lips, teeth, and gums CARDIOVASCULAR: RRR, normal S1 and S2, no rub RESPIRATORY: clear anteriorly ABDOMEN: soft, mild RLQ TTP; nondistended, positive bowel sounds present EXTREMITIES: no evidence of cyanosis, clubbing, or edema; s/p right BKA NEUROLOGICAL: awake and alert but mild confusion noted; generalized weakness noted; no focal deficits noted Results Lab Results 07/28/25 04:32 07/28/25 10:57 Lab results: Most recent lab results ABG pH 7.095 (7.350-7.450) L* 07/27/25 15:50 ABG pCO2 21.2 mmHg (35.0-45.0) L* 07/27/25 15:50 ABG pO2 101.3 mmHg (80.0-100.0) H 07/27/25 15:50 ABG HCO3 6.4 mEq/l (22.0-26.0) L 07/27/25 15:50 ABG O2 Saturation 95.4 % (95.0-100.0) 07/27/25 15:50 Calcium 7.8 mg/dL (8.4-10.2) L 07/28/25 10:57 Phosphorus 5.2 mg/dL (2.5-4.5) H 07/28/25 04:32 Magnesium 1.5 mg/dL (1.6-2.3) L 07/28/25 10:57
[2025-07-28 11:36] LABS: Anion Gap 13 mmol/L (4-12); Blood Urea Nitrogen 38 mg/dL (7-17); Calcium 7.8 mg/dL (8.4-10.2); Carbon Dioxide 9 mmol/L (22-30); Chloride 117 mmol/L (98-107); Estimated CRCL calculation 11 ml/min; Estimated Glomerular Filt Rate 8; Glucose 143 mg/dL (65-110); Magnesium 1.5 mg/dL (1.6-2.3); Potassium 2.8 mmol/L (3.4-5.0); Sodium 139 mmol/L (137-145)
--- NOTE | 2025-07-28 12:08 | PCOTNOTE ---
The patient initial evaluation was not able to be completed on 07/28 due to patient demonstrating increased lethargy as well as throwing up. Will plan to evaluate when appropriate.
[2025-07-28] MEDS: POTASSIUM CHLORIDE 20 MEQ ER TABLET 40 MEQ PO ×2 (12:15→20:23)
[2025-07-28] MEDS: GABAPENTIN 300 MG CAPSULE PO ×2 (12:15→21:57)
[2025-07-28] MEDS: SODIUM BICARBONATE TAB 650 MG TABLET 1300 MG PO ×2 (12:15→18:12)
[2025-07-28] MEDS: POTASSIUM CHLORIDE INJ 40 MEQ in SODIUM CHLORIDE 0.9% IV 500 ML 130 MEQ IVPB (12:30)
[2025-07-28] MEDS: MEROPENEM 1 GM in SODIUM CHLORIDE 0.9% IV 100 ML 200 ML IVPB (18:12)
[2025-07-28 19:16] LABS: Anion Gap 11 mmol/L (4-12); Blood Urea Nitrogen 35 mg/dL (7-17); Calcium 7.3 mg/dL (8.4-10.2); Carbon Dioxide 11 mmol/L (22-30); Chloride 116 mmol/L (98-107); Estimated CRCL calculation 12 ml/min; Estimated Glomerular Filt Rate 9; Glucose 196 mg/dL (65-110); Magnesium 1.4 mg/dL (1.6-2.3); Potassium 3.1 mmol/L (3.4-5.0); Sodium 138 mmol/L (137-145)
[2025-07-28] MEDS: ATORVASTATIN 10 MG TABLET BY MOUTH (20:24)
[2025-07-28] MEDS: MAGNESIUM OXIDE 400 MG TABLET PO (20:24)
[2025-07-28] MEDS: ACETAMINOPHEN 325 MG TABLET 650 MG PO (20:27)
[2025-07-29] VITALS (29 sets, daily range): BP systolic 110–167; BP diastolic 44–90; PULSE 74–86; RESP 14–24; TEMP 36.6–37; O2SAT 94–100
--- NOTE | 2025-07-29 01:33 | PC.NURSE ---
Daylight Savings Time For Daylight Savings Time Ending in the Fall - Clocks are moved back. For Daylight Savings Time Beginning in the Spring - Clocks are moved ahead. For [facility], the time of change occurs at 0200 hrs. Time is taken from the linux server administrator. This entry on the patient's chart recognizes the change in time reflected during documentation. Example: 2 entries for vital signs may be charted for 0200 hrs.
[2025-07-29 04:29] LABS: Hematocrit 24.6 % (37.0-47.0); Hemoglobin 7.5 g/dL (12.0-15.0); Immature Granulocyte Percent A 0.7 % (0-0.5); Immature Platelet Fraction Pct 1.9 % (0.9-11.2); Lymphocytes Absolute Auto 2.46 K/mm3 (0.9-3.2); Mean Corpuscular HGB Conc 30.5 g/dl (32-36); Mean Corpuscular Hemoglobin 31.3 pg (26-34); Mean Corpuscular Volume 102.5 fl (80-100); Nucleated Red Blood Cells Absolute Auto 0.000 K/mm3 (0.0-0.012); Nucleated Red Blood Cells Perc 0.0 % (0.0-0.2); Platelet Count Result 142 k/mm3 (150-375); Red Blood Count 2.40 M/mm3 (4.2-5.4); White Blood Count 9.0 K/mm3 (4.5-10.0)
[2025-07-29 04:44] LABS: Alanine Aminotransferase 14 U/L (6-35); Albumin Level 2.7 g/dL (3.5-5.1); Alkaline Phosphatase 119 U/L (38-126); Anion Gap 10 mmol/L (4-12); Aspartate Amino Transferase 16 U/L (14-36); Bilirubin,Total 0.3 mg/dL (0.2-1.3); Blood Urea Nitrogen 37 mg/dL (7-17); Calcium 7.1 mg/dL (8.4-10.2); Carbon Dioxide 14 mmol/L (22-30); Chloride 114 mmol/L (98-107); Estimated CRCL calculation 15 ml/min; Estimated Glomerular Filt Rate 10; Glucose 139 mg/dL (65-110); Magnesium 1.3 mg/dL (1.6-2.3); Potassium 2.9 mmol/L (3.4-5.0); Sodium 138 mmol/L (137-145); Total Protein 5.6 g/dL (6.3-8.2)
[2025-07-29 07:08] LABS: Hep B Core Ab, Total Negative (Negative)
--- NOTE | 2025-07-29 07:44 | PM.CNGS ---
Assessment and Plan Assessment and plan (1) Chronic kidney disease (CKD), stage V: Code(s): N18.5 - Chronic kidney disease, stage 5 Status: Chronic (2) Admission for fitting and adjustment of vascular catheter: Code(s): Z45.2 - Encounter for adjustment and management of vascular access device Status: Acute Assessment and Plan: Will place right sided tunneled CVC for hemodialysis as requested today. History of Present Illness Consult details Consult date: 07/29/25 Reason for consult: central line (Needs hemodialysis access) Requesting physician: Seymour Knight MD [facility] Past Medical History Medical History (Updated 07/29/25 @ 07:47 by Alex Foley MD) Right BKA infection Acute on chronic kidney failure Clostridium difficile colitis Amputation of leg Right [id number] UTI due to extended-spectrum beta lactamase (ESBL) producing Escherichia coli Application of prosthesis S/P fecal transplant 06/2023 Wound discharge Nausea and vomiting in adult Leg edema, left Anemia Stage 4 chronic kidney disease Overweight with body mass index (BMI) of 28 to 28.9 in adult Myalgia Inflammatory arthritis Microscopic colitis Adult BMI 31.0-31.9 kg/sq m Recurrent Clostridioides difficile infection Obese C. difficile diarrhea Gall bladder disease Allergies Hematochezia Abdominal adhesions Abdominal distention Abnormal colonoscopy Atelectasis of both lungs Carpal tunnel syndrome of left wrist Daytime hypersomnolence Diabetic foot infection Dyspnea on exertion Dysthymia Essential hypertension Hammertoes of both feet Hypovitaminosis D ILD (interstitial lung disease) Lactic acidemia Lymphedema MDD (major depressive disorder), recurrent episode, with atypical features Microalbuminuria due to type 2 diabetes mellitus Mixed hyperlipidemia Onychogryphosis Other screening mammogram PTSD (post-traumatic stress disorder) Peripheral polyneuropathy Pes cavus Proteinuria, unspecified Psychophysiological insomnia Pulmonary nodule Rash and nonspecific skin eruption Spondylosis of lumbar region without myelopathy or radiculopathy Tinea corporis Tinea unguium Tobacco use disorder Trigger finger of left thumb Type 2 diabetes mellitus with hyperglycemia, without long-term current use of insulin 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 History of blood transfusion Bipolar disorder Chronic back pain Fibromyalgia Post-menopausal Tubal Pneumonia Hyperlipidemia Surgical History Surgical History Status post insertion of dialysis catheter S/P partial hysterectomy S/P ventral herniorrhaphy Status post ORIF of fracture of ankle Right ankle History of hysterectomy History of tubal ligation History of breast biopsy left breast History of dilatation and curettage History of cholecystectomy History of umbilical hernia repair History of cardiac catheterization Family History Family History Father due to motor vehicle traffic accident Hypertension Bowel cancer Grandparent Diabetes mellitus Other Diabetes mellitus Mother due to motor vehicle traffic accident Sibling Club foot COVID-19 Other Family history of heart disease in male family member before age 55 Social History Social History (Updated 07/27/25 @ 22:19 by Yoana Lua APRN) Social History: The patient is and lives in [place] with her . She smoked 1.5 packs of cigarettes per day for many years, and quit smoking. However for the last 6 months she has been smoking up to half a pack of cigarettes per day due to stress. No excessive alcohol use. She denies illicit drug use. She designates her Will as her surrogate decision maker and she wishes to be a full code. 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 The patient is applying for disability. She is unable to work at this time. She cannot stand on her foot she has severe neuropathy. She has 2 children. 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 Substance use: never Substance use type: does not use Other substance usage details: A TEENAGER Do You Feel Safe in your Home?: Yes Lack of Transportation: No Lack of Food: Never True Current Housing: I Have Housing Concerned About Future Housing: No Difficulty Paying Gas/Electric Bills: No Difficulty Paying for Meds: No Currently Unemployed: No Education: High School Diploma/GED Difficulty w/ Childcare or Family Care: No Living arrangements: with family Occupation/Education: retired 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 Gender identity (if verbalized by the patient): Female Sexual Orientation (if Verbalized by the Patient): Straight or Heterosexual Spiritual care concerns: No Agree to blood products: Yes Meds Home Medications and Allergies Home Medications ?Medication ?Instructions ?Recorded ?Confirmed ?Type trazodone 150 mg tablet 150 mg PO HS PRN Insomnia 11/04/19 07/27/25 History hydralazine 25 mg tablet 25 mg PO TID 11/30/22 07/27/25 History blood-glucose,green 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,cont #1 ea 01/14/23 07/27/25 Rx (Dexcom G7 Catering Director) pen needle, diabetic 32 gauge x #600 ea 02/24/23 07/27/25 Rx (BD Ultra-Fine Erika Pen Needle) insulin degludec 200 unit/mL (3 12 unit (0.06 mL) subcut QHS #9 mL 12/30/23 07/27/25 Rx mL) subcutaneous pen (Tresiba FlexTouch U-200 insulin) brexpiprazole 2 mg tablet (Rexulti) 2 mg PO DAILY 03/03/24 07/27/25 History cholecalciferol (vitamin D3) 25 25 mcg PO DAILY 03/03/24 07/27/25 History mcg (1,000 unit) chewable tablet (Vitamin D3) promethazine 25 mg tablet 25 mg PO TID PRN Nausea 03/13/24 07/27/25 History albuterol sulfate 90 mcg/actuation 2 inh inhalation Q6H PRN shortness 05/22/24 07/27/25 Rx aerosol inhaler of breath or wheezing #8.5 grams cyanocobalamin (vitamin B-12) 50 50 mcg PO DAILY 07/25/24 07/27/25 History mcg tablet (Vitamin B-12) furosemide 20 mg tablet See Rx Instructions .Route 02/09/25 07/27/25 Rx .COMPLEX #90 tabs atorvastatin 10 mg tablet See Rx Instructions .Route 02/26/25 07/27/25 Rx .COMPLEX #90 tabs blood-glucose sensor (Dexcom G7 #9 ea 02/26/25 07/27/25 Rx Sensor device) insulin lispro 200 unit/mL (3 mL) 4 unit (0.02 mL) subcut TIDWM #24 04/03/25 07/27/25 Rx subcutaneous pen (Humalog KwikPen mL U-200 Insulin) sertraline 100 mg tablet 100 mg PO DAILY 05/23/25 07/27/25 History gabapentin 300 mg capsule See Rx Instructions PO .COMPLEX 06/07/25 07/27/25 Rx #120 caps nicotine 21 mg/24 hr daily 1 patch transdermal DAILY #28 ea 06/07/25 07/27/25 Rx transdermal patch (Nicoderm CQ) sodium bicarbonate 650 mg tablet 650 mg PO BID #60 tabs 07/04/25 07/27/25 Rx bupropion HCl 300 mg 24 hr tablet, 300 mg PO DAILY 07/09/25 07/27/25 History extended release pantoprazole 40 mg tablet,delayed 40 mg PO DAILY 07/09/25 07/27/25 History release potassium chloride 20 mEq 20 meq PO BID #14 tabs 07/20/25 07/27/25 Rx tablet,extended release(part/cryst) (Ignacio Maurer) Allergies Allergy/AdvReac Type Severity Reaction Status Date / Time ceftriaxone Allergy Severe Rash Verified 07/27/25 20:36 adhesive Allergy Intermediate Itching/ Verified 07/27/25 20:36 SWELLING / RASH povidone-iodine Allergy Intermediate rash Verified 07/27/25 20:36 soap (From Betadine) Allergy Intermediate Rash Verified 07/27/25 20:36 Vital Signs Vital Signs - 24 hr 07/28/25 10:00 07/28/25 11:50 07/28/25 12:00 Temperature 37.1 C Pulse Rate 73 82 79 Respiratory Rate 24 H Blood Pressure 171/54 H Pulse Oximetry 99 Oxygen Delivery 07/28/25 12:00 07/28/25 13:48 07/28/25 14:00 Temperature Pulse Rate 81 Respiratory Rate Blood Pressure Pulse Oximetry 96 Oxygen Delivery Room Air Room Air 07/28/25 15:40 07/28/25 16:00 07/28/25 16:00 Temperature 36.7 C Pulse Rate 76 74 Respiratory Rate 16 Blood Pressure 135/54 L Pulse Oximetry 98 100 Oxygen Delivery Room Air 07/28/25 18:00 07/28/25 19:53 07/28/25 20:00 Temperature 36.4 C Pulse Rate 79 79 79 Respiratory Rate 24 H 24 H Blood Pressure 146/58 H Pulse Oximetry 99 99 Oxygen Delivery Room Air 07/28/25 20:00 07/28/25 22:00 07/29/25 00:00 Temperature 36.9 C Pulse Rate 79 82 80 Respiratory Rate 16 Blood Pressure 134/49 L Pulse Oximetry 97 Oxygen Delivery 07/29/25 00:00 07/29/25 00:00 07/29/25 02:00 Temperature Pulse Rate 81 81 74 Respiratory Rate 16 Blood Pressure Pulse Oximetry 97 Oxygen Delivery Room Air 07/29/25 04:00 07/29/25 04:00 07/29/25 04:00 Temperature 36.7 C Pulse Rate 85 85 85 Respiratory Rate 16 16 Blood Pressure 118/44 L Pulse Oximetry 95 95 Oxygen Delivery Room Air 07/29/25 05:54 Temperature Pulse Rate 76 Respiratory Rate Blood Pressure Pulse Oximetry Oxygen Delivery Exam Extrem: Left upper extremity: elbow/forearm (has AV fistula) Results Labs 07/29/25 04:01 07/29/25 04:01 Labs: Abnormal lab results 07/28/25 07/28/25 07/28/25 Range/Units 10:57 11:18 15:57 RBC (4.2-5.4) M/mm3 Hgb (12.0-15.0) g/dL Hct (37.0-47.0) % MCV (80-100) fl MCHC (32-36) g/dl RDW (11.5-14.5) % Plt Count (150-375) k/mm3 Immature Gran % (Auto) (0-0.5) % Abs Immat Gran (auto) (0.00-0.031) K/mm3 Potassium 2.8 L* (3.4-5.0) mmol/L Chloride 117 H (98-107) mmol/L Carbon Dioxide 9 L (22-30) mmol/L Anion Gap 13 H (4-12) mmol/L BUN 38 H (7-17) mg/dL Creatinine 5.37 H (0.7-1.0) mg/dL Estimated GFR 8 L (59 - ) Glucose 143 H (65-110) mg/dL POC Capillary Glucose 152 H 136 H (65-105) mg/dl Calcium 7.8 L (8.4-10.2) mg/dL Magnesium 1.5 L (1.6-2.3) mg/dL Total Protein (6.3-8.2) g/dL Albumin (3.5-5.1) g/dL 07/28/25 07/28/25 07/29/25 Range/Units 18:56 19:52 04:01 RBC 2.40 L (4.2-5.4) M/mm3 Hgb 7.5 L (12.0-15.0) g/dL Hct 24.6 L (37.0-47.0) % MCV 102.5 H (80-100) fl MCHC 30.5 L (32-36) g/dl RDW 15.9 H (11.5-14.5) % Plt Count 142 L (150-375) k/mm3 Immature Gran % (Auto) 0.7 H (0-0.5) % Abs Immat Gran (auto) 0.06 H (0.00-0.031) K/mm3 Potassium 3.1 L 2.9 L (3.4-5.0) mmol/L Chloride 116 H 114 H (98-107) mmol/L Carbon Dioxide 11 L 14 L (22-30) mmol/L Anion Gap (4-12) mmol/L BUN 35 H 37 H (7-17) mg/dL Creatinine 4.85 H 4.41 H (0.7-1.0) mg/dL Estimated GFR 9 L 10 L (59 - ) Glucose 196 H 139 H (65-110) mg/dL POC Capillary Glucose 153 H (65-105) mg/dl Calcium 7.3 L 7.1 L (8.4-10.2) mg/dL Magnesium 1.4 L 1.3 L (1.6-2.3) mg/dL Total Protein 5.6 L (6.3-8.2) g/dL Albumin 2.7 L (3.5-5.1) g/dL Diabetes panel 07/28/25 07/28/25 07/29/25 Range/Units 10:57 18:56 04:01 Sodium 139 138 138 (137-145) mmol/L Potassium 2.8 L* 3.1 L 2.9 L (3.4-5.0) mmol/L Chloride 117 H 116 H 114 H (98-107) mmol/L Carbon Dioxide 9 L 11 L 14 L (22-30) mmol/L BUN 38 H 35 H 37 H (7-17) mg/dL Creatinine 5.37 H 4.85 H 4.41 H (0.7-1.0) mg/dL Glucose 143 H 196 H 139 H (65-110) mg/dL Calcium 7.8 L 7.3 L 7.1 L (8.4-10.2) mg/dL AST 16 (14-36) U/L ALT 14 (6-35) U/L Alkaline Phosphatase 119 (38-126) U/L Total Protein 5.6 L (6.3-8.2) g/dL Albumin 2.7 L (3.5-5.1) g/dL Calcium panel 07/28/25 07/28/25 07/29/25 Range/Units 10:57 18:56 04:01 Calcium 7.8 L 7.3 L 7.1 L (8.4-10.2) mg/dL Phosphorus 3.7 (2.5-4.5) mg/dL Albumin 2.7 L (3.5-5.1) g/dL Pituitary panel 07/28/25 07/28/25 07/29/25 Range/Units 10:57 18:56 04:01 Sodium 139 138 138 (137-145) mmol/L Potassium 2.8 L* 3.1 L 2.9 L (3.4-5.0) mmol/L Chloride 117 H 116 H 114 H (98-107) mmol/L Carbon Dioxide 9 L 11 L 14 L (22-30) mmol/L BUN 38 H 35 H 37 H (7-17) mg/dL Creatinine 5.37 H 4.85 H 4.41 H (0.7-1.0) mg/dL Glucose 143 H 196 H 139 H (65-110) mg/dL Calcium 7.8 L 7.3 L 7.1 L (8.4-10.2) mg/dL Adrenal panel 07/28/25 07/28/25 07/29/25 Range/Units 10:57 18:56 04:01 Sodium 139 138 138 (137-145) mmol/L Potassium 2.8 L* 3.1 L 2.9 L (3.4-5.0) mmol/L Chloride 117 H 116 H 114 H (98-107) mmol/L Carbon Dioxide 9 L 11 L 14 L (22-30) mmol/L BUN 38 H 35 H 37 H (7-17) mg/dL Creatinine 5.37 H 4.85 H 4.41 H (0.7-1.0) mg/dL Glucose 143 H 196 H 139 H (65-110) mg/dL Calcium 7.8 L 7.3 L 7.1 L (8.4-10.2) mg/dL Total Bilirubin 0.3 (0.2-1.3) mg/dL AST 16 (14-36) U/L ALT 14 (6-35) U/L Alkaline Phosphatase 119 (38-126) U/L Total Protein 5.6 L (6.3-8.2) g/dL Albumin 2.7 L (3.5-5.1) g/dL All other labs normal.
--- NOTE | 2025-07-29 07:48 | WPDHPUPDATE1 ---
History and Physical Update Update Date/Time: 07/29/25 07:48 History and Physical has been reviewed, including an updated exam of the patient. There are NO changes in the patient's condition. Risks, benefits, and alternatives have been discussed and questions answered. Patient agrees to proceed with procedure.
[2025-07-29] MEDS: ceFAZolin 2 GM in SODIUM CHLORIDE 0.9% IV 50 ML 100 ML IVPB (07:59)
[2025-07-29] MEDS: POTASSIUM CHLORIDE 20 MEQ ER TABLET 40 MEQ PO ×2 (08:00→12:29)
[2025-07-29] MEDS: GABAPENTIN 300 MG CAPSULE 600 MG PO ×2 (08:07→20:42)
[2025-07-29] MEDS: SODIUM BICARBONATE TAB 650 MG TABLET 1300 MG PO ×3 (08:07→16:44)
[2025-07-29] MEDS: CHOLECALCIFEROL (VITAMIN D3) 25 MCG (1,000 UNITS) TABLET PO (08:08)
[2025-07-29] MEDS: PANTOPRAZOLE 40 MG TABLET PO (08:08)
[2025-07-29] MEDS: SERTRALINE HCL 50 MG TABLET 100 MG PO (08:09)
[2025-07-29] MEDS: buPROPion HCL XL (24 HR) 150 MG TABCR 300 MG PO (08:13)
--- NOTE | 2025-07-29 08:55 | PC.NURSE ---
pt taken down to pacu, sod bicarb running
--- NOTE | 2025-07-29 09:02 | WPDANESEPPF ---
Anes - Initial Pre Proc Eval Procedure: Operation Date: 07/29/25 09:30 Proposed Procedures p Insertion Duraflow Permacath Dialysis Tunneled Dialysis Catheter - Alex Foley MD Date/Time: 07/29/25 09:02 Surgeon: Branden Hendrickson MD Pre Op Diagnosis: Metabolic acidosis, UTI, Renal failure Patient Data Age: 60 Gender: F Height: 1.73 m Weight: 87.5 kg Last Vital Signs Temp 98.1 F 07/29/25 08:00 Pulse 79 07/29/25 08:00 Resp 24 H 07/29/25 08:00 BP 125/50 L 07/29/25 08:00 Pulse Ox 96 07/29/25 08:00 O2 Del Method Room Air 07/29/25 04:00 Allergies Allergy/AdvReac Type Severity Reaction Status Date / Time ceftriaxone Allergy Severe Rash Verified 07/27/25 20:36 adhesive Allergy Intermediate Itching/ Verified 07/27/25 20:36 SWELLING / RASH povidone-iodine Allergy Intermediate rash Verified 07/27/25 20:36 soap (From Betadine) Allergy Intermediate Rash Verified 07/27/25 20:36 Home Medications ?Medication ?Instructions ?Recorded ?Confirmed ?Type trazodone 150 mg tablet 150 mg PO HS PRN Insomnia 11/04/19 07/27/25 History hydralazine 25 mg tablet 25 mg PO TID 11/30/22 07/27/25 History blood-glucose,silk soaker,cont #1 ea 01/14/23 07/27/25 Rx (Dexcom G7 Home Care Consultant) pen needle, diabetic 32 gauge x #600 ea 02/24/23 07/27/25 Rx 5/32 (BD Ultra-Fine Erika Pen Needle) insulin degludec 200 unit/mL (3 12 unit (0.06 mL) subcut QHS #9 mL 12/30/23 07/27/25 Rx mL) subcutaneous pen (Tresiba FlexTouch U-200 insulin) brexpiprazole 2 mg tablet (Rexulti) 2 mg PO DAILY 03/03/24 07/27/25 History cholecalciferol (vitamin D3) 25 25 mcg PO DAILY 03/03/24 07/27/25 History mcg (1,000 unit) chewable tablet (Vitamin D3) promethazine 25 mg tablet 25 mg PO TID PRN Nausea 03/13/24 07/27/25 History albuterol sulfate 90 mcg/actuation 2 inh inhalation Q6H PRN shortness 05/22/24 07/27/25 Rx aerosol inhaler of breath or wheezing #8.5 grams cyanocobalamin (vitamin B-12) 50 50 mcg PO DAILY 07/25/24 07/27/25 History mcg tablet (Vitamin B-12) furosemide 20 mg tablet See Rx Instructions .Route 02/09/25 07/27/25 Rx .COMPLEX #90 tabs atorvastatin 10 mg tablet See Rx Instructions .Route 02/26/25 07/27/25 Rx .COMPLEX #90 tabs blood-glucose sensor (Dexcom G7 #9 ea 02/26/25 07/27/25 Rx Sensor device) insulin lispro 200 unit/mL (3 mL) 4 unit (0.02 mL) subcut TIDWM #24 04/03/25 07/27/25 Rx subcutaneous pen (Humalog KwikPen mL U-200 Insulin) sertraline 100 mg tablet 100 mg PO DAILY 05/23/25 07/27/25 History gabapentin 300 mg capsule See Rx Instructions PO .COMPLEX 06/07/25 07/27/25 Rx #120 caps nicotine 21 mg/24 hr daily 1 patch transdermal DAILY #28 ea 06/07/25 07/27/25 Rx transdermal patch (Nicoderm CQ) sodium bicarbonate 650 mg tablet 650 mg PO BID #60 tabs 07/04/25 07/27/25 Rx bupropion HCl 300 mg 24 hr tablet, 300 mg PO DAILY 07/09/25 07/27/25 History extended release pantoprazole 40 mg tablet,delayed 40 mg PO DAILY 07/09/25 07/27/25 History release potassium chloride 20 mEq 20 meq PO BID #14 tabs 07/20/25 07/27/25 Rx tablet,extended release(part/cryst) (Klor-Con M) Laboratory Tests 07/28/25 07/28/25 07/28/25 04:32 10:57 11:18 WBC RBC Hgb Hct MCV MCH MCHC RDW Plt Count MPV Immature Gran % (Auto) Neut % (Auto) Lymph % (Auto) Oliver % (Auto) Eos % (Auto) Baso % (Auto) Lymph # (Auto) Oliver # (Auto) Eos # (Auto) Baso # (Auto) Abs Immat Gran (auto) Absolute Neuts (auto) Absolute Nucleated RBC Nucleated RBC % % Immature Plt Fraction Sodium 139 mmol/L (137-145) Potassium 2.8 L* mmol/L (3.4-5.0) Chloride 117 H mmol/L (98-107) Carbon Dioxide 9 L mmol/L (22-30) Anion Gap 13 H mmol/L (4-12) BUN 38 H mg/dL (7-17) Creatinine 5.37 H mg/dL (0.7-1.0) Estim Creat Clear Calc 11 ml/min Estimated GFR 8 L (59 - ) Glucose 143 H mg/dL (65-110) POC Capillary Glucose 152 H mg/dl (65-105) Calcium 7.8 L mg/dL (8.4-10.2) Phosphorus Magnesium 1.5 L mg/dL (1.6-2.3) Total Bilirubin AST ALT Alkaline Phosphatase Total Protein Albumin Hep B Core Total Ab Negative (Negative) 07/28/25 07/28/25 07/28/25 15:57 18:56 19:52 WBC RBC Hgb Hct MCV MCH MCHC RDW Plt Count MPV Immature Gran % (Auto) Neut % (Auto) Lymph % (Auto) Oliver % (Auto) Eos % (Auto) Baso % (Auto) Lymph # (Auto) Oliver # (Auto) Eos # (Auto) Baso # (Auto) Abs Immat Gran (auto) Absolute Neuts (auto) Absolute Nucleated RBC Nucleated RBC % % Immature Plt Fraction Sodium 138 mmol/L (137-145) Potassium 3.1 L mmol/L (3.4-5.0) Chloride 116 H mmol/L (98-107) Carbon Dioxide 11 L mmol/L (22-30) Anion Gap 11 mmol/L (4-12) BUN 35 H mg/dL (7-17) Creatinine 4.85 H mg/dL (0.7-1.0) Estim Creat Clear Calc 12 ml/min Estimated GFR 9 L (59 - ) Glucose 196 H mg/dL (65-110) POC Capillary Glucose 136 H mg/dl 153 H mg/dl (65-105) (65-105) Calcium 7.3 L mg/dL (8.4-10.2) Phosphorus Magnesium 1.4 L mg/dL (1.6-2.3) Total Bilirubin AST ALT Alkaline Phosphatase Total Protein Albumin Hep B Core Total Ab 07/29/25 07/29/25 04:01 08:07 WBC 9.0 K/mm3 (4.5-10.0) RBC 2.40 L M/mm3 (4.2-5.4) Hgb 7.5 L g/dL (12.0-15.0) Hct 24.6 L % (37.0-47.0) MCV 102.5 H fl (80-100) MCH 31.3 pg (26-34) MCHC 30.5 L g/dl (32-36) RDW 15.9 H % (11.5-14.5) Plt Count 142 L k/mm3 (150-375) MPV 10.4 fl (7.4-10.4) Immature Gran % (Auto) 0.7 H % (0-0.5) Neut % (Auto) 63.8 % (45.5-73.1) Lymph % (Auto) 27.4 % (18.3-44.2) Oliver % (Auto) 6.9 % (2.6-8.5) Eos % (Auto) 0.9 % (0-4.4) Baso % (Auto) 0.3 % (0.2-1.2) Lymph # (Auto) 2.46 K/mm3 (0.9-3.2) Oliver # (Auto) 0.6 K/mm3 (0.1-0.6) Eos # (Auto) 0.1 K/mm3 (0-0.3) Baso # (Auto) 0.0 K/mm3 (0.0-0.1) Abs Immat Gran (auto) 0.06 H K/mm3 (0.00-0.031) Absolute Neuts (auto) 5.7 K/mm3 (1.3-6.7) Absolute Nucleated RBC 0.000 K/mm3 (0.0-0.012) Nucleated RBC % 0.0 % (0.0-0.2) % Immature Plt Fraction 1.9 % (0.9-11.2) Sodium 138 mmol/L (137-145) Potassium 2.9 L mmol/L (3.4-5.0) Chloride 114 H mmol/L (98-107) Carbon Dioxide 14 L mmol/L (22-30) Anion Gap 10 mmol/L (4-12) BUN 37 H mg/dL (7-17) Creatinine 4.41 H mg/dL (0.7-1.0) Estim Creat Clear Calc 15 ml/min Estimated GFR 10 L (59 - ) Glucose 139 H mg/dL (65-110) POC Capillary Glucose 144 H mg/dl (65-105) Calcium 7.1 L mg/dL (8.4-10.2) Phosphorus 3.7 mg/dL (2.5-4.5) Magnesium 1.3 L mg/dL (1.6-2.3) Total Bilirubin 0.3 mg/dL (0.2-1.3) AST 16 U/L (14-36) ALT 14 U/L (6-35) Alkaline Phosphatase 119 U/L (38-126) Total Protein 5.6 L g/dL (6.3-8.2) Albumin 2.7 L g/dL (3.5-5.1) Hep B Core Total Ab Patient hx anesthesia problems: none Family hx anesthesia problems: none Results Review: All pre-operative results and documents have been reviewed as part of the pre-operative evaluation. [facility] Past Medical History Medical History Right BKA infection Acute on chronic kidney failure Clostridium difficile colitis Amputation of leg Right [id number] UTI due to extended-spectrum beta lactamase (ESBL) producing Escherichia coli Application of prosthesis S/P fecal transplant 06/2023 Wound discharge Nausea and vomiting in adult Leg edema, left Anemia Stage 4 chronic kidney disease Overweight with body mass index (BMI) of 28 to 28.9 in adult Myalgia Inflammatory arthritis Microscopic colitis Adult BMI 31.0-31.9 kg/sq m Recurrent Clostridioides difficile infection Obese C. difficile diarrhea Gall bladder disease Allergies Hematochezia Abdominal adhesions Abdominal distention Abnormal colonoscopy Atelectasis of both lungs Carpal tunnel syndrome of left wrist Daytime hypersomnolence Diabetic foot infection Dyspnea on exertion Dysthymia Essential hypertension Hammertoes of both feet Hypovitaminosis D ILD (interstitial lung disease) Lactic acidemia Lymphedema MDD (major depressive disorder), recurrent episode, with atypical features Microalbuminuria due to type 2 diabetes mellitus Mixed hyperlipidemia Onychogryphosis Other screening mammogram PTSD (post-traumatic stress disorder) Peripheral polyneuropathy Pes cavus Proteinuria, unspecified Psychophysiological insomnia Pulmonary nodule Rash and nonspecific skin eruption Spondylosis of lumbar region without myelopathy or radiculopathy Tinea corporis Tinea unguium Tobacco use disorder Trigger finger of left thumb Type 2 diabetes mellitus with hyperglycemia, without long-term current use of insulin 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 History of blood transfusion Bipolar disorder Chronic back pain Fibromyalgia Post-menopausal Tubal Pneumonia Hyperlipidemia Surgical History Surgical History Status post insertion of dialysis catheter S/P partial hysterectomy S/P ventral herniorrhaphy Status post ORIF of fracture of ankle Right ankle History of hysterectomy History of tubal ligation History of breast biopsy left breast History of dilatation and curettage History of cholecystectomy History of umbilical hernia repair History of cardiac catheterization Family History Family History Father due to motor vehicle traffic accident Hypertension Bowel cancer Grandparent Diabetes mellitus Other Diabetes mellitus Mother due to motor vehicle traffic accident Sibling Club foot COVID-19 Other Family history of heart disease in male family member before age 55 Social History Social History (Updated 07/27/25 @ 22:19 by Yoana Lua, JAMIL) Social History: The patient is and lives in [place] with her . She smoked 1.5 packs of cigarettes per day for many years, and quit smoking. However for the last 6 months she has been smoking up to half a pack of cigarettes per day due to stress. No excessive alcohol use. She denies illicit drug use. She designates her Will as her surrogate decision maker and she wishes to be a full code. 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 The patient is applying for disability. She is unable to work at this time. She cannot stand on her foot she has severe neuropathy. She has 2 children. 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 Substance use: never Substance use type: does not use Other substance usage details: A TEENAGER Do You Feel Safe in your Home?: Yes Lack of Transportation: No Lack of Food: Never True Current Housing: I Have Housing Concerned About Future Housing: No Difficulty Paying Gas/Electric Bills: No Difficulty Paying for Meds: No Currently Unemployed: No Education: High School Diploma/GED Difficulty w/ Childcare or Family Care: No Living arrangements: with family Occupation/Education: retired 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 ) Neurological: alert and oriented Last oral intake: >/= 8 hours ASA classification: IV Emergent: no Anesthetic plan: proceed Anesthesia type and monitoring: general GIVS and standard monitoring Results Review: All pre-operative results and documents have been reviewed as part of the pre-operative evaluation. HTN, hyperlipidemia, COPD w current 1 ppd smoker, IDDM, CKD5, pt w AV fistula in place that is not mature, now for need for HD due to impending uremia. Informed Consent: The patient's anesthetic plan and its attendant risks and benefits were discussed with the patient/family/POA. Questions were solicited and answers provided to the satisfaction of the patient/family/POA.
[2025-07-29] MEDS: LIDO 1%/EPINEPHRINE 1:100,000 50 ML VIAL (10:11)
[2025-07-29] MEDS: HEPARIN SODIUM, PORCINE 10,000 UNITS/10 ML VIAL 10 UNITS IV PUSH (10:15)
--- NOTE | 2025-07-29 10:42 | P.OP_ITS ---
Procedure Note - Detailed Date of Procedure 07/29/25 Pre-op Diagnosis End-stage renal disease, inadequate venous access for dialysis Post-op Diagnosis Same Procedure Performed Ultrasound-guided placement right internal jugular tunneled central venous catheter under fluoroscopy per Dr. Foley Surgeon Alex Foley MD Glass Engraver Teresa NAVA Anesthesia General (LMA) Indications Patient has uremia and has progression of chronic renal failure to the point where she needs to to start dialysis. Findings Tip of catheter in distal SVC, right atrial junction Description of Procedure Patient was taken to surgery and anesthesia was introduced. The right neck and right upper chest were prepped and draped. Ultrasound was then used to locate the right internal jugular vein. The vein was cannulated with the initial puncture. The guidewire passed through the internal jugular vein down to the right atrium. C-arm fluoroscopy was used to document the path of the guidewire. I then used a 32cm dual lumen dura flow tunneled central venous catheter. I mapped its course on the patient's chest and neck. I marked counter incisions were we would tunnel the catheter. Local was infiltrated into each of the counter incisions. There was a lot of venous back bleeding from each incision. Pressure was held and eventually this all stopped. The catheter was then tunneled from the chest incision up to the neck and eventually out the incision associated with the guidewire. I then passed serial dilators under fluoroscopy over the guidewire. Eventually the large dilator with sheath was passed under fluoroscopy. The guidewire and introducer was then removed. The catheter was passed through the sheath and into the superior vena cava. The sheath was then removed. I reviewed the catheter with fluoroscopy. It was in very good position. There were no kinks in the loop of the catheter. I then tested each port. Both ports aspirated blood readily and flushed easily with heparin. Final flush was then placed in each port and caps were placed. I then used 4-0 Vicryl suture and closed each of the incisions with subcuticular interrupted 4-0 Vicryl. Local was infiltrated under the flange. 3-0 nylon was then used to secure the flange to the skin. The wounds were cleaned and dried. Three of the wounds were dressed with Exofin surgical adhesive. The exit site of the dura f low catheter was dressed with a 2 x 2 and Tegaderm. The patient was then awakened and taken to recovery in good condition. Sponge and needle counts were correct x2. Implants 32 cm dual lumen dura flow catheter Estimated Blood Loss -25 Urine Output 550 Drains No Packing No Pathology None sent Complications None Condition Stable Disposition PACU [facility] Billing Surgery - Charge Forward: Surgery Billing (Ultrasound-guided placement right internal jugular vein tunneled central venous catheter for dialysis under fluoroscopy.)
[2025-07-29] MEDS: SODIUM CHLORIDE 0.9% IV 500 ML 30 ML IV CONT (10:49)
[2025-07-29] MEDS: MAGNESIUM SULF 2 GM/WATER 50ML 2 GM/50 ML BAG IVPB (11:00)
--- NOTE | 2025-07-29 12:08 | PC.NURSE ---
pt brought back by pacu nurse
[2025-07-29] MEDS: GABAPENTIN 300 MG CAPSULE PO ×2 (12:30→21:00)
[2025-07-29] MEDS: oxyCODONE/ACETAMINOPHEN (*CRX) 5-325 MG TABLET 1 TABLET PO ×2 (13:36→20:41)
--- NOTE | 2025-07-29 14:18 | PM.IMPN ---
Progress Note: A&P Assessment and Plan (1) Stage 5 chronic kidney disease: Code(s): N18.5 - Chronic kidney disease, stage 5 Status: Acute Assessment and Plan: -the patient has a AV fistula left forearm with positive bruit and thrill however nonfunctional per Nephrology Worsening with severe metabolic acidosis. Remains on bicarb drip. The patient stated that she is agreeable to move forward with hemodialysis. She will need dialysis access to initiate as left arm fistula not functional 07/29 Temporary HD catheter placed, tunnelled right IJ Baseline creatinine of 3.40, 07/29 4.41 (2) Metabolic acidosis: Code(s): E87.20 - Acidosis, unspecified Status: Acute Assessment and Plan: -is multifactorial. -she has chronic renal failure -she is also diabetic -NO infection by urine C/s and NO infiltrate on CXR or CT Ab/Pelvis, 07/29 STOPPED meropenem due to hx of recurrent c diff -she was given a dose of sodium bicarb in the emergency room. -continue with bicarb tablet (3) Anemia: Qualifiers: Anemia type: unspecified type Qualified Code(s): D64.9 - Anemia, unspecified Code(s): D64.9 - Anemia, unspecified Status: Acute Assessment and Plan: -anemia of chronic renal disease. -no current signs and symptoms of active bleeding (4) Type 2 diabetes mellitus with hyperglycemia, with long-term current use of insulin: Code(s): E11.65 - Type 2 diabetes mellitus with hyperglycemia; Z79.4 - snf (current) use of insulin Status: Acute Assessment and Plan: -point of care bedside glucose AC and HS with sliding scale insulin. 07/29 FBS 132 (5) Hypertension: Code(s): I10 - Essential (primary) hypertension Status: Chronic Assessment and Plan: -continue with hydralazine 07/29 129/50 (6) Hyperlipidemia LDL goal <100: Code(s): E78.5 - Hyperlipidemia, unspecified Status: Acute Assessment and Plan: -continue with atorvastatin and monitor liver function (7) Bipolar disorder: Qualifiers: Active/Remission status: remission status unspecified Qualified Code(s): F31.9 - Bipolar disorder, unspecified Code(s): F31.9 - Bipolar disorder, unspecified Status: Acute Assessment and Plan: -continue with home medication of bupropion, Rexulti, and trazodone. (8) Tobacco dependence: Code(s): F17.200 - Nicotine dependence, unspecified, uncomplicated Status: Chronic Assessment and Plan: -continue with nicotine -smoking cessation education Subjective Date/time seen: 07/29/25 14:18 Interval history: Admitted 07/27 due to progression to ESRD with uremic symptoms. 07/29 had temporary HD catheter placed, tunnelled in right IJ. states fatigue is much better. She is more alert. Denied pain except for some soreness at her catheter insertion site. Denied shortness of breath or chest pain or abdominal pain. Denied diarrhea or constipation. Denied blood in stool or urine. Denied focal weakness. 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 She is willing to try probiotics. Review of Systems Review of Systems: All systems reviewed & are unremarkable except as noted in HPI and below Exam Narrative: HEENT: EOMI, PERRL, sclerae nonicteric, pharyngeal mucosa pink and intact NECK: No JVD, adenopathy, or thyromegaly CHEST: Normal effort, bilateral LL crackles HEART: NL S1/S2, regular, 3/6 VICENTE LUSB & RUSB that radiates poorly ABDOMEN: BS+, soft, nontender, no mass, no bruits EXTREMITIES: No cyanosis, edema, or clubbing NEUROLOGIC: CN intact and symmetric to inspection. MUSCULOSKELETAL: Tone and strength symmetric, Right BKA stump intact PSYCH: Alert. Oriented to person, place, and time Objective Data Vital Signs Vital Signs: Vital Signs - 24 hr 07/28/25 15:40 07/28/25 16:00 07/28/25 16:00 Temperature 98.0 F Pulse Rate 76 74 Respiratory Rate 16 Blood Pressure 135/54 L Pulse Oximetry 98 100 Oxygen Delivery Room Air Oxygen Flow Rate 07/28/25 18:00 07/28/25 19:53 07/28/25 20:00 Temperature 97.6 F Pulse Rate 79 79 79 Respiratory Rate 24 H 24 H Blood Pressure 146/58 H Pulse Oximetry 99 99 Oxygen Delivery Room Air Oxygen Flow Rate 07/28/25 20:00 07/28/25 22:00 07/29/25 00:00 Temperature 98.4 F Pulse Rate 79 82 80 Respiratory Rate 16 Blood Pressure 134/49 L Pulse Oximetry 97 Oxygen Delivery Oxygen Flow Rate 07/29/25 00:00 07/29/25 00:00 07/29/25 02:00 Temperature Pulse Rate 81 81 74 Respiratory Rate 16 Blood Pressure Pulse Oximetry 97 Oxygen Delivery Room Air Oxygen Flow Rate 07/29/25 04:00 07/29/25 04:00 07/29/25 04:00 Temperature 98.1 F Pulse Rate 85 85 85 Respiratory Rate 16 16 Blood Pressure 118/44 L Pulse Oximetry 95 95 Oxygen Delivery Room Air Oxygen Flow Rate 07/29/25 05:54 07/29/25 08:00 07/29/25 08:00 Temperature 98.1 F Pulse Rate 76 79 80 Respiratory Rate 24 H Blood Pressure 125/50 L Pulse Oximetry 96 Oxygen Delivery Oxygen Flow Rate 07/29/25 10:49 07/29/25 11:00 07/29/25 11:15 Temperature 97.8 F Pulse Rate 86 81 81 Respiratory Rate 20 17 18 Blood Pressure 134/48 L 138/61 140/57 L Pulse Oximetry 100 94 94 Oxygen Delivery Simple Face Mask Room Air Room Air Oxygen Flow Rate 10 07/29/25 11:30 07/29/25 11:35 07/29/25 12:00 Temperature 97.9 F Pulse Rate 82 80 76 Respiratory Rate 18 20 20 Blood Pressure 130/67 110/65 129/50 L Pulse Oximetry 94 95 96 Oxygen Delivery Room Air Room Air Oxygen Flow Rate 07/29/25 12:00 Temperature Pulse Rate 80 Respiratory Rate Blood Pressure Pulse Oximetry Oxygen Delivery Oxygen Flow Rate Intake/Output Intake/Output: Intake & Output 07/26/25 07/27/25 07/28/25 07/29/25 23:59 23:59 23:59 22:59 Intake Total 1125 3732.5 1101 Output Total 850 550 Balance 1125 2882.5 551 Meds/Results Medications: Active Medications Generic Name Dose Route Start Last Admin Trade Name Freq PRN Reason Stop Dose Admin Acetaminophen 650 mg 07/28/25 20:13 07/28/25 20:27 Acetaminophen 325 Mg Tablet PO 650 mg Q4H PRN Administration Mild Pain (1-3) or Fever Albuterol 2 puff 07/27/25 22:41 Albuterol Sulfate (*Sp) Aerosol 1 Puff INHALATION Q6HRT PRN Shortness Of Breath Or Wheezin Atorvastatin Calcium 10 mg 10/31/25 22:45 07/28/25 20:24 Atorvastatin 10 Mg Tablet BY MOUTH 10 mg HS KOBE Administration Bupropion HCl 300 mg 07/28/25 09:00 07/29/25 08:13 Bupropion Hcl Xl (24 Hr) 150 Mg Tabcr PO 300 mg DAILY KOBE Administration Dextrose 12.5 gm 07/28/25 13:08 Dextrose 50% 25 Gm/50 Ml Syringe IV PUSH PRN PRN Hypoglycemia Protocol Epoetin Miko-epbx 10,000 units 07/29/25 18:00 Epoetin Miko-Epbx 10,000 Units/Ml Vial IV PUSH 07/29/25 18:01 ONCE ONE Gabapentin 600 mg 07/28/25 09:00 07/29/25 08:07 Gabapentin 300 Mg Capsule PO 600 mg QAM KOBE Administration Gabapentin 300 mg 07/28/25 12:00 07/29/25 12:30 Gabapentin 300 Mg Capsule PO 300 mg DAILY@1200,2100 KOBE Administration Glucagon 1 mg 07/28/25 13:08 Glucagon For Inj 1 Mg Vial IM PRN PRN Hypoglycemia Protocol Glucose 15 gm 07/28/25 13:08 Glucose Oral Gel 15 Gm Of Glucse In 37.5 Gm Tube PO PRN PRN Hypoglycemia Protocol Hydralazine HCl 25 mg 07/28/25 09:00 07/29/25 12:32 Hydralazine Hcl 25 Mg Tablet PO Not Given TID KOBE Meropenem 1 gm/ Sodium 100 mls @ 200 mls/hr 07/28/25 18:00 07/28/25 18:42 Chloride IVPB Infused Q24H KOBE Infusion Dextrose 1,000 mls @ 100 mls/hr 07/28/25 13:08 Dextrose 5% 1,000 Ml IVPB PRN PRN Hypoglycemia Protocol Albumin Human 50 mls @ 999 mls/hr 07/29/25 08:41 Albutein IVPB 08/28/25 08:40 Q10M PRN HYPOTENSION Insulin Aspart 3 - 6 units 07/28/25 08:00 07/29/25 12:23 Insulin Aspart (*Bkc) 100 Units/Ml SUB-Q Not Given TIDWM KOBE Protocol Miscellaneous Information 0 each 07/28/25 00:01 Rexulti May Use From Home Send To Pharmacy For Verification Once Brought In XX 08/27/25 00:00 CLARIFY KOBE Nicotine 1 patch 07/28/25 09:00 07/29/25 08:20 Nicotine (*Pbkc) 21 Mg Patch TRANSDERM Not Given DAILY [facility] Non-Formulary Medication 2 mg 07/28/25 09:00 Brexpiprazole [Rexulti] PO 08/27/25 08:59 DAILY [facility] Ondansetron HCl 4 mg 07/28/25 11:25 Ondansetron Inj 4 Mg/2 Ml Vial IV PUSH Q6H PRN Nausea And Vomiting Oxycodone/Acetaminophen 1 tablet 07/29/25 11:41 07/29/25 13:36 Oxycodone/Acetaminophen (*Crx) 5-325 Mg Tablet PO 1 tablet Q6H PRN Administration Pain Rated 7-10 Oxycodone/Acetaminophen 0.5 tablet 07/29/25 11:41 Oxycodone/Acetaminophen (*Crx) 5-325 Mg Tablet PO Q6H PRN Pain Rated 4-6 Pantoprazole Sodium 40 mg 07/28/25 09:00 07/29/25 08:08 Pantoprazole 40 Mg Tablet PO 40 mg DAILY KOBE Administration Sertraline HCl 100 mg 07/28/25 09:00 07/29/25 08:09 Sertraline Hcl 50 Mg Tablet PO 100 mg DAILY KOBE Administration Sodium Bicarbonate 1,300 mg 07/28/25 13:00 07/29/25 12:30 Sodium Bicarbonate Tab 650 Mg Tablet PO 1,300 mg TID KOBE Administration Trazodone HCl 150 mg 07/27/25 22:41 07/28/25 20:27 Trazodone Hcl 50 Mg Tablet PO 150 mg HS PRN Administration Insomnia Vitamin D 25 mcg 07/28/25 09:00 07/29/25 08:08 Cholecalciferol (Vitamin D3) 25 Mcg (1,000 Units) Tablet PO 25 mcg DAILY KOBE Administration Radiology Results: ITS Impressions Head CT 07/27/25 15:50 Impression: 1.No acute intracranial abnormality. Abdomen/Pelvis CT 07/27/25 15:57 IMPRESSION: 1. Borderline bladder wall thickening and subtle haziness to the surrounding fat consistent with mild cystitis. Correlate with urinalysis. 2. Pleural thickening along the margins of a small likely complex left pleural effusion. 3. Mild cardiomegaly. 4. Nonspecific splenomegaly. 5. Small fat-containing umbilical hernia. Chest X-Ray 07/29/25 11:42 IMPRESSION: 1. No pneumothorax. 2. Worsening bibasilar atelectasis. 3. Small left pleural effusion persists. Labs Labs: Laboratory Results - last 24 hr 07/28/25 07/28/25 07/28/25 04:32 15:57 18:56 WBC RBC Hgb Hct MCV MCH MCHC RDW Plt Count MPV Immature Gran % (Auto) Neut % (Auto) Lymph % (Auto) Coleman % (Auto) Eos % (Auto) Baso % (Auto) Lymph # (Auto) Coleman # (Auto) Eos # (Auto) Baso # (Auto) Abs Immat Gran (auto) Absolute Neuts (auto) Absolute Nucleated RBC Nucleated RBC % % Immature Plt Fraction Sodium 138 Potassium 3.1 L Chloride 116 H Carbon Dioxide 11 L Anion Gap 11 BUN 35 H Creatinine 4.85 H Estim Creat Clear Calc 12 Estimated GFR 9 L Glucose 196 H POC Capillary Glucose 136 H Calcium 7.3 L Phosphorus Magnesium 1.4 L Total Bilirubin AST ALT Alkaline Phosphatase Total Protein Albumin Hep B Core Total Ab Negative 07/28/25 07/29/25 07/29/25 19:52 04:01 08:07 WBC 9.0 RBC 2.40 L Hgb 7.5 L Hct 24.6 L MCV 102.5 H MCH 31.3 MCHC 30.5 L RDW 15.9 H Plt Count 142 L MPV 10.4 Immature Gran % (Auto) 0.7 H Neut % (Auto) 63.8 Lymph % (Auto) 27.4 Coleman % (Auto) 6.9 Eos % (Auto) 0.9 Baso % (Auto) 0.3 Lymph # (Auto) 2.46 Coleman # (Auto) 0.6 Eos # (Auto) 0.1 Baso # (Auto) 0.0 Abs Immat Gran (auto) 0.06 H Absolute Neuts (auto) 5.7 Absolute Nucleated RBC 0.000 Nucleated RBC % 0.0 % Immature Plt Fraction 1.9 Sodium 138 Potassium 2.9 L Chloride 114 H Carbon Dioxide 14 L Anion Gap 10 BUN 37 H Creatinine 4.41 H Estim Creat Clear Calc 15 Estimated GFR 10 L Glucose 139 H POC Capillary Glucose 153 H 144 H Calcium 7.1 L Phosphorus 3.7 Magnesium 1.3 L Total Bilirubin 0.3 AST 16 ALT 14 Alkaline Phosphatase 119 Total Protein 5.6 L Albumin 2.7 L Hep B Core Total Ab 07/29/25 07/29/25 11:16 12:15 WBC RBC Hgb Hct MCV MCH MCHC RDW Plt Count MPV Immature Gran % (Auto) Neut % (Auto) Lymph % (Auto) Coleman % (Auto) Eos % (Auto) Baso % (Auto) Lymph # (Auto) Coleman # (Auto) Eos # (Auto) Baso # (Auto) Abs Immat Gran (auto) Absolute Neuts (auto) Absolute Nucleated RBC Nucleated RBC % % Immature Plt Fraction Sodium Potassium Chloride Carbon Dioxide Anion Gap BUN Creatinine Estim Creat Clear Calc Estimated GFR Glucose POC Capillary Glucose 132 H 140 H Calcium Phosphorus Magnesium Total Bilirubin AST ALT Alkaline Phosphatase Total Protein Albumin Hep B Core Total Ab
[2025-07-29 16:23] LABS: Albumin Level 2.8 g/dL (3.5-5.1); Anion Gap 10 mmol/L (4-12); Blood Urea Nitrogen 33 mg/dL (7-17); Calcium 7.0 mg/dL (8.4-10.2); Carbon Dioxide 15 mmol/L (22-30); Chloride 112 mmol/L (98-107); Estimated CRCL calculation 16 ml/min; Estimated Glomerular Filt Rate 11; Glucose 204 mg/dL (65-110); Magnesium 1.9 mg/dL (1.6-2.3); Potassium 3.5 mmol/L (3.4-5.0); Sodium 137 mmol/L (137-145)
[2025-07-29] MEDS: SACCHAROMYCES BOULARDII 250 MG CAPSULE PO (16:44)
[2025-07-29] MEDS: INSULIN ASPART (*BKC) 100 UNITS/ML SUB-Q (16:45)
--- NOTE | 2025-07-29 18:00 | PC.NURSE ---
pt taken up to dialysis, will be there for 2.5 hrs per dialysis nurse
--- NOTE | 2025-07-29 18:37 | P.PNNP_ITS ---
Progress Note: A&P Assessment and Plan (1) End stage renal disease: Code(s): N18.6 - End stage renal disease Status: Acute Assessment and Plan: * due to progression of underlying CKD: * uremic symptoms noted (nausea + vomiting + poor appetite + fatigue/lethargy + altered mentation...etc) - suspect acute UTI may have precipitated worsening uremic symptoms * persistent metabolic acidosis * relative anemia * HOWEVER, no critical electrolytes and volume status relatively * unfortunately, AVF not able to be used currently due to small size... * this was confirmed by evaluation by one of the acute dialysis nurses here at [place] * s/p tunneled HD catheter (on 07/29) * HD today * likely plan HD tomorrow and day after... * outpatient dialysis arrangements (2) Metabolic acidosis: Code(s): E87.20 - Acidosis, unspecified Status: Acute Assessment and Plan: * quite severe on presentation * due to several issues: * worsening renal dysfunction/failure * acute infection (UTI) * known diabetes * known history of GI issues(?) * s/p bicarb gtt and oral sodium bicarbonate * should correct/improve with dialysis (3) UTI (urinary tract infection): Code(s): N39.0 - Urinary tract infection, site not specified Status: Acute Assessment and Plan: * as suggested by admission UA * UA: with 3+ blood, positive nitrates, 3+ leukocyte esterase, urine wbc's greater than 100, and 4+ bacteria. * follow culture data - urine culture not done(?) * will re-order * on antibiotics * known history of recurrent UTIs * Urology recommendations noted (4) Hypokalemia: Code(s): E87.6 - Hypokalemia Status: Resolved Assessment and Plan: * due to several issues: * poor oral intake (nausea/vomiting) * bicarb fluids + oral bicarbonate supplementaion * low magnesium * cautiously IV and oral replacement as tolerated * follow magnesium levels * follow repeat K+ levels (5) Anemia: Qualifiers: Anemia type: unspecified type Qualified Code(s): D64.9 - Anemia, unspecified Code(s): D64.9 - Anemia, unspecified Status: Acute Assessment and Plan: * presumably due to ESRD * suspect some dilutional effects from IVF resuscitation * no evidence of bleeding * consider checking iron studies * however, would avoid IV venofer in the the context of a possible infection * Epogen with HD * follow H/H (6) Hypertension: Code(s): I10 - Essential (primary) hypertension Status: Chronic Assessment and Plan: * fluctuating at this time * since on dialysis now, add lisinopril (and titrate as needed) * continue hydralazine * follow trend of hemodynamics (7) IDDM (insulin dependent diabetes mellitus): Status: Chronic Assessment and Plan: * follow accu-cheks * glycemic control per hospitalist (8) Generalized weakness: Code(s): R53.1 - Weakness Status: Acute Assessment and Plan: * presumably due to ESRD in conjunction with uremia and acute infection/UTI * PT/OT * continue supportive therapy Will continue to follow. L Subjective Date/time seen: 07/29/25 18:37 Interval history: Follow-up for end stage renal disease --> now on hemodialysis. Seen earlier today and now -- s/p tunneled HD catheter placement and tolerating first dialysis treatment at this time (seen on HD at 6:25pm); no apparent distress noted; issues with hypokalemia noted requiring IV and oral supplementation along with IV magnesium; acidosis a bit better with IV bicarb fluids and oral sodium bicarbonate. Exam 2 Narrative: General: WD/WN female in NAD Heart: normal S1 and S2; no rub Lungs: clear anteriorly Abdomen: soft, nontender, nondistended, positive bowel sounds Extremities: no cyanosis or clubbing; no edema; s/p right BKA Skin: warm and dry Objective Data Vital Signs Vital Signs: Vital Signs Temp Pulse Resp BP Pulse Ox O2 Del Method O2 Flow Rate 07/29/25 18:30 80 140/70 07/29/25 18:00 82 07/29/25 16:00 78 07/29/25 16:00 98.4 F 82 20 119/65 96 07/29/25 14:00 80 07/29/25 12:00 80 07/29/25 12:00 97.9 F 76 20 129/50 L 96 07/29/25 11:35 80 20 110/65 95 Room Air 07/29/25 11:30 82 18 130/67 94 Room Air 07/29/25 11:15 81 18 140/57 L 94 Room Air 07/29/25 11:00 81 17 138/61 94 Room Air 07/29/25 10:49 97.8 F 86 20 134/48 L 100 Simple Face Mask 10 07/29/25 08:00 80 07/29/25 08:00 98.1 F 79 24 H 125/50 L 96 07/29/25 05:54 76 07/29/25 04:00 85 07/29/25 04:00 85 16 95 Room Air 07/29/25 04:00 98.1 F 85 16 118/44 L 95 07/29/25 02:00 74 07/29/25 00:00 81 07/29/25 00:00 81 16 97 Room Air 07/29/25 00:00 98.4 F 80 16 134/49 L 97 07/28/25 22:00 82 07/28/25 20:00 79 07/28/25 20:00 79 24 H 99 Room Air 07/28/25 19:53 97.6 F 79 24 H 146/58 H 99 Intake/Output Intake/Output: Intake & Output 07/26/25 07/27/25 07/28/25 07/29/25 23:59 23:59 23:59 22:59 Intake Total 1125 3732.5 1341 Output Total 850 550 Balance 1125 2882.5 791 Meds/Results Medications: Active Medications Generic Name Dose Route Start Last Admin Trade Name Freq PRN Reason Stop Dose Admin Acetaminophen 650 mg 07/28/25 20:13 07/28/25 20:27 Acetaminophen 325 Mg Tablet PO 650 mg Q4H PRN Administration Mild Pain (1-3) or Fever Albuterol 2 puff 07/27/25 22:41 Albuterol Sulfate (*Sp) Aerosol 1 Puff INHALATION Q6HRT PRN Shortness Of Breath Or Wheezin Atorvastatin Calcium 10 mg 07/27/25 22:45 07/28/25 20:24 Atorvastatin 10 Mg Tablet BY MOUTH 10 mg HS KOBE Administration Bupropion HCl 300 mg 07/28/25 09:00 07/29/25 08:13 Bupropion Hcl Xl (24 Hr) 150 Mg Tabcr PO 300 mg DAILY KOBE Administration Dextrose 12.5 gm 07/28/25 13:08 Dextrose 50% 25 Gm/50 Ml Syringe IV PUSH PRN PRN Hypoglycemia Protocol Gabapentin 600 mg 07/28/25 09:00 07/29/25 08:07 Gabapentin 300 Mg Capsule PO 600 mg QAM KOBE Administration Gabapentin 300 mg 07/28/25 12:00 07/29/25 12:30 Gabapentin 300 Mg Capsule PO 300 mg DAILY@1200,2100 KOBE Administration Glucagon 1 mg 07/28/25 13:08 Glucagon For Inj 1 Mg Vial IM PRN PRN Hypoglycemia Protocol Glucose 15 gm 07/28/25 13:08 Glucose Oral Gel 15 Gm Of Glucse In 37.5 Gm Tube PO PRN PRN Hypoglycemia Protocol Hydralazine HCl 25 mg 07/28/25 09:00 07/29/25 16:44 Hydralazine Hcl 25 Mg Tablet PO 25 mg TID KOBE Administration Dextrose 1,000 mls @ 100 mls/hr 07/28/25 13:08 Dextrose 5% 1,000 Ml IVPB PRN PRN Hypoglycemia Protocol Albumin Human 50 mls @ 999 mls/hr 07/29/25 08:41 Albutein IVPB 08/28/25 08:40 Q10M PRN HYPOTENSION Insulin Aspart 3 - 6 units 07/28/25 08:00 07/29/25 16:45 Insulin Aspart (*Bkc) 100 Units/Ml SUB-Q 3 units TIDWM KOBE Administration Protocol Miscellaneous Information 0 each 07/28/25 00:01 Rexulti May Use From Home Send To Pharmacy For Verification Once Brought In XX 08/27/25 00:00 CLARIFY [facility] Nicotine 1 patch 07/28/25 09:00 07/29/25 08:20 Nicotine (*Pbkc) 21 Mg Patch TRANSDERM Not Given DAILY [facility] Non-Formulary Medication 2 mg 07/28/25 09:00 Brexpiprazole [Rexulti] PO 08/27/25 08:59 DAILY [facility] Ondansetron HCl 4 mg 07/28/25 11:25 Ondansetron Inj 4 Mg/2 Ml Vial IV PUSH Q6H PRN Nausea And Vomiting Oxycodone/Acetaminophen 1 tablet 07/29/25 11:41 07/29/25 13:36 Oxycodone/Acetaminophen (*Crx) 5-325 Mg Tablet PO 1 tablet Q6H PRN Administration Pain Rated 7-10 Oxycodone/Acetaminophen 0.5 tablet 07/29/25 11:41 Oxycodone/Acetaminophen (*Crx) 5-325 Mg Tablet PO Q6H PRN Pain Rated 4-6 Pantoprazole Sodium 40 mg 07/28/25 09:00 07/29/25 08:08 Pantoprazole 40 Mg Tablet PO 40 mg DAILY KOBE Administration Saccharomyces Boulardii 250 mg 07/29/25 17:00 07/29/25 16:44 Saccharomyces Boulardii 250 Mg Capsule PO 250 mg TID KOBE Administration Sertraline HCl 100 mg 07/28/25 09:00 07/29/25 08:09 Sertraline Hcl 50 Mg Tablet PO 100 mg DAILY KOBE Administration Trazodone HCl 150 mg 07/27/25 22:41 07/28/25 20:27 Trazodone Hcl 50 Mg Tablet PO 150 mg HS PRN Administration Insomnia Vitamin D 25 mcg 07/28/25 09:00 07/29/25 08:08 Cholecalciferol (Vitamin D3) 25 Mcg (1,000 Units) Tablet PO 25 mcg DAILY KOBE Administration Radiology Results: ITS Impressions Head CT 07/27/25 15:50 Impression: 1.No acute intracranial abnormality. Abdomen/Pelvis CT 07/27/25 15:57 IMPRESSION: 1. Borderline bladder wall thickening and subtle haziness to the surrounding fat consistent with mild cystitis. Correlate with urinalysis. 2. Pleural thickening along the margins of a small likely complex left pleural effusion. 3. Mild cardiomegaly. 4. Nonspecific splenomegaly. 5. Small fat-containing umbilical hernia. Chest X-Ray 07/29/25 11:42 IMPRESSION: 1. No pneumothorax. 2. Worsening bibasilar atelectasis. 3. Small left pleural effusion persists. Labs Labs: Laboratory Tests 07/29/25 04:01 07/29/25 16:06 07/29/25 04:01 Sodium 138 Potassium 2.9 L Chloride 114 H Carbon Dioxide 14 L Anion Gap 10 BUN 37 H Creatinine 4.41 H Estim Creat Clear Calc 15 Estimated GFR 10 L Glucose 139 H Calcium 7.1 L Phosphorus 3.7 Magnesium 1.3 L Total Bilirubin 0.3 AST 16 ALT 14 Alkaline Phosphatase 119 Total Protein 5.6 L Albumin 2.7 L Microbiology 07/27/25 16:19 Blood Blood Culture - Preliminary 07/27/25 16:19 Blood Blood Culture - Preliminary
[2025-07-29] MEDS: EPOETIN ALFA-EPBX 10,000 UNITS/ML VIAL 10000 UNITS IV PUSH (20:25)
[2025-07-29] MEDS: ATORVASTATIN 10 MG TABLET BY MOUTH (20:42)
[2025-07-30] VITALS (31 sets, daily range): BP systolic 126–174; BP diastolic 45–81; PULSE 71–84; RESP 16–18; TEMP 35.7–37.3; O2SAT 92–98
[2025-07-30 04:27] LABS: Hematocrit 23.9 % (37.0-47.0); Hemoglobin 7.3 g/dL (12.0-15.0); Immature Granulocyte Percent A 0.6 % (0-0.5); Lymphocytes Absolute Auto 2.14 K/mm3 (0.9-3.2); Mean Corpuscular HGB Conc 30.5 g/dl (32-36); Mean Corpuscular Hemoglobin 31.5 pg (26-34); Mean Corpuscular Volume 103.0 fl (80-100); Nucleated Red Blood Cells Absolute Auto 0.000 K/mm3 (0.0-0.012); Nucleated Red Blood Cells Perc 0.0 % (0.0-0.2); Platelet Count Result 140 k/mm3 (150-375); Red Blood Count 2.32 M/mm3 (4.2-5.4); White Blood Count 9.5 K/mm3 (4.5-10.0)
[2025-07-30] MEDS: oxyCODONE/ACETAMINOPHEN (*CRX) 5-325 MG TABLET 1 TABLET PO (04:35)
[2025-07-30 04:43] LABS: Albumin Level 2.8 g/dL (3.5-5.1); Anion Gap 3 mmol/L (4-12); Blood Urea Nitrogen 20 mg/dL (7-17); Calcium 7.4 mg/dL (8.4-10.2); Carbon Dioxide 26 mmol/L (22-30); Chloride 103 mmol/L (98-107); Estimated CRCL calculation 27 ml/min; Estimated Glomerular Filt Rate 20; Glucose 141 mg/dL (65-110); Magnesium 1.7 mg/dL (1.6-2.3); Potassium 3.4 mmol/L (3.4-5.0); Sodium 132 mmol/L (137-145)
--- NOTE | 2025-07-30 09:40 | P.PNNP_ITS ---
Progress Note: A&P Assessment and Plan (1) End stage renal disease: Code(s): N18.6 - End stage renal disease Status: Acute Assessment and Plan: * secondar to biopsy-proven diabetic nephropathy/nephrosclerosis along with contributions from hypertension, and vascular disease in association with recurrent bouts of acute kidney injury/ acute renal failure secondary to her previous urinary tract infections as well as recurrent C diff colitis * progression of underlying CKD noted: * uremic symptoms noted (nausea + vomiting + poor appetite + fatigue/lethargy + altered mentation...etc) - suspect acute UTI may have precipitated worsening uremic symptoms * persistent metabolic acidosis * relative anemia * HOWEVER, no critical electrolytes and volume status relatively * unfortunately, AVF not able to be used currently due to small size... * this was confirmed by evaluation by one of the acute dialysis nurses here at [place] * s/p tunneled HD catheter (on 07/29) * HD yesterday and today * likely plan HD tomorrow as well * outpatient dialysis arrangements (2) Metabolic acidosis: Code(s): E87.20 - Acidosis, unspecified Status: Acute Assessment and Plan: * slow improvement * quite severe on presentation * due to several issues: * worsening renal dysfunction/failure * acute infection (UTI) * known diabetes * known history of GI issues(?) * s/p bicarb gtt and oral sodium bicarbonate * ongoing correction with dialysis (3) UTI (urinary tract infection): Code(s): N39.0 - Urinary tract infection, site not specified Status: Acute Assessment and Plan: * as suggested by admission UA * UA: with 3+ blood, positive nitrates, 3+ leukocyte esterase, urine wbc's greater than 100, and 4+ bacteria * follow culture data - urine culture not done on admission * re-ordered and pending * on antibiotics * known history of recurrent UTIs * Urology recommendations noted (4) Hypokalemia: Code(s): E87.6 - Hypokalemia Status: Resolved Assessment and Plan: * slowly improvement * due to several issues: * poor oral intake (nausea/vomiting) * bicarb fluids + oral bicarbonate supplementaion * low magnesium * cautiously IV and oral replacement as tolerated * follow magnesium levels * follow repeat K+ levels (5) Anemia: Qualifiers: Anemia type: unspecified type Qualified Code(s): D64.9 - Anemia, unspecified Code(s): D64.9 - Anemia, unspecified Status: Acute Assessment and Plan: * presumably due to ESRD * suspect some dilutional effects from IVF resuscitation * no evidence of bleeding * consider checking iron studies * however, would avoid IV venofer in the the context of a possible infection (UTI) * Epogen with HD * follow H/H (6) Hypertension: Code(s): I10 - Essential (primary) hypertension Status: Chronic Assessment and Plan: * fluctuating at this time * since on dialysis now, added lisinopril (and titrate as needed) * continue hydralazine * follow trend of hemodynamics (7) IDDM (insulin dependent diabetes mellitus): Status: Chronic Assessment and Plan: * follow accu-cheks * glycemic control per hospitalist (8) Generalized weakness: Code(s): R53.1 - Weakness Status: Acute Assessment and Plan: * presumably due to ESRD in conjunction with uremia and acute infection/UTI * PT/OT * continue supportive therapy Will continue to follow. L Subjective Date/time seen: 07/30/25 09:40 Interval history: Follow-up for end stage renal disease with initiation of hemodialysis. Status post tunneled HD catheter placement and first dialysis session yesterday afternoon/evening; tolerating second dialysis treatment at the time of my visit; no apparent distress noted when seen; no issues/events overnight or earlier this morning. Exam 2 Narrative: General: WD/WN female in NAD Heart: normal S1 and S2; no rub Lungs: clear anteriorly Abdomen: soft, nontender, nondistended, positive bowel sounds Extremities: no cyanosis or clubbing; no edema; s/p right BKA Skin: warm and intact Objective Data Vital Signs Vital Signs: Vital Signs Temp Pulse Resp BP Pulse Ox O2 Del Method O2 Flow Rate 07/30/25 09:30 80 146/66 H 07/30/25 09:15 80 138/70 07/30/25 09:00 77 142/69 H 07/30/25 08:50 99.1 F 81 16 135/62 94 07/30/25 08:00 79 07/30/25 07:49 98.7 F 83 16 126/45 L 93 07/30/25 06:30 81 07/30/25 04:00 80 07/30/25 04:00 Room Air 07/30/25 04:00 98.5 F 78 16 129/52 L 92 07/30/25 02:00 77 07/30/25 00:00 80 07/30/25 00:00 Room Air 07/30/25 00:00 98.4 F 83 16 135/57 L 94 07/29/25 22:00 81 07/29/25 21:19 98 F 79 14 147/70 H 96 07/29/25 20:48 79 167/70 H 07/29/25 20:30 79 152/65 H 07/29/25 20:15 79 135/71 07/29/25 20:00 78 07/29/25 20:00 Room Air 07/29/25 20:00 80 139/69 07/29/25 19:45 80 139/69 07/29/25 19:30 82 160/75 H 07/29/25 19:15 81 116/90 07/29/25 19:00 81 131/71 07/29/25 18:45 82 132/69 07/29/25 18:30 80 140/70 07/29/25 18:18 80 136/67 07/29/25 18:07 98.4 F 83 17 124/66 96 07/29/25 18:07 0 07/29/25 18:00 82 07/29/25 16:00 78 07/29/25 16:00 98.4 F 82 20 119/65 96 07/29/25 14:00 80 07/29/25 12:00 80 07/29/25 12:00 97.9 F 76 20 129/50 L 96 Intake/Output Intake/Output: Intake & Output 07/27/25 07/28/25 07/29/25 07/30/25 23:59 23:59 22:59 23:59 Intake Total 1125 3732.5 1641 1270 Output Total 079 647 0830 Balance 1125 2882.5 791 -230 Meds/Results Medications: Active Medications Generic Name Dose Route Start Last Admin Trade Name Freq PRN Reason Stop Dose Admin Acetaminophen 650 mg 07/28/25 20:13 07/30/25 10:46 Acetaminophen 325 Mg Tablet PO 650 mg Q4H PRN Administration Mild Pain (1-3) or Fever Albuterol 2 puff 07/27/25 22:41 Albuterol Sulfate (*Sp) Aerosol 1 Puff INHALATION Q6HRT PRN Shortness Of Breath Or Wheezin Atorvastatin Calcium 10 mg 07/27/25 22:45 07/29/25 20:42 Atorvastatin 10 Mg Tablet BY MOUTH 10 mg HS KOBE Administration Bupropion HCl 300 mg 07/28/25 09:00 07/29/25 08:13 Bupropion Hcl Xl (24 Hr) 150 Mg Tabcr PO 300 mg DAILY KOBE Administration Dextrose 12.5 gm 07/28/25 13:08 Dextrose 50% 25 Gm/50 Ml Syringe IV PUSH PRN PRN Hypoglycemia Protocol Epoetin Miko-epbx 10,000 units 07/30/25 17:49 07/30/25 10:26 Epoetin Miko-Epbx 10,000 Units/Ml Vial IV PUSH 07/30/25 17:50 10,000 units ONCE ONE Administration Gabapentin 600 mg 07/28/25 09:00 07/29/25 20:42 Gabapentin 300 Mg Capsule PO 600 mg QAM KOBE Administration Gabapentin 300 mg 07/28/25 12:00 07/29/25 21:00 Gabapentin 300 Mg Capsule PO 300 mg DAILY@1200,2100 KOBE Administration Glucagon 1 mg 07/28/25 13:08 Glucagon For Inj 1 Mg Vial IM PRN PRN Hypoglycemia Protocol Glucose 15 gm 07/28/25 13:08 Glucose Oral Gel 15 Gm Of Glucse In 37.5 Gm Tube PO PRN PRN Hypoglycemia Protocol Hydralazine HCl 25 mg 07/30/25 09:00 Hydralazine Hcl 25 Mg Tablet PO BID KOBE Dextrose 1,000 mls @ 100 mls/hr 07/28/25 13:08 Dextrose 5% 1,000 Ml IVPB PRN PRN Hypoglycemia Protocol Albumin Human 50 mls @ 999 mls/hr 07/29/25 08:41 Albutein IVPB 08/28/25 08:40 Q10M PRN HYPOTENSION Insulin Aspart 3 - 6 units 07/28/25 08:00 07/30/25 09:51 Insulin Aspart (*Bkc) 100 Units/Ml SUB-Q Not Given TIDWM [facility] Protocol Lisinopril 10 mg 07/30/25 09:00 Lisinopril 10 Mg Tablet PO DAILY [facility] Miscellaneous Information 0 each 07/28/25 00:01 Kaylii May Use From Home Send To Pharmacy For Verification Once Brought In XX 08/27/25 00:00 CLARIFY KOBE Nicotine 1 patch 07/28/25 09:00 07/29/25 08:20 Nicotine (*Pbkc) 21 Mg Patch TRANSDERM Not Given DAILY [facility] Non-Formulary Medication 2 mg 07/28/25 09:00 Brexpiprazole [Rexulti] PO 08/27/25 08:59 DAILY [facility] Ondansetron HCl 4 mg 07/28/25 11:25 Ondansetron Inj 4 Mg/2 Ml Vial IV PUSH Q6H PRN Nausea And Vomiting Oxycodone/Acetaminophen 1 tablet 07/29/25 11:41 07/30/25 04:35 Oxycodone/Acetaminophen (*Crx) 5-325 Mg Tablet PO 1 tablet Q6H PRN Administration Pain Rated 7-10 Oxycodone/Acetaminophen 0.5 tablet 07/29/25 11:41 Oxycodone/Acetaminophen (*Crx) 5-325 Mg Tablet PO Q6H PRN Pain Rated 4-6 Pantoprazole Sodium 40 mg 07/28/25 09:00 07/29/25 08:08 Pantoprazole 40 Mg Tablet PO 40 mg DAILY KOBE Administration Saccharomyces Boulardii 250 mg 07/29/25 17:00 07/29/25 16:44 Saccharomyces Boulardii 250 Mg Capsule PO 250 mg TID KOBE Administration Sertraline HCl 100 mg 07/28/25 09:00 07/29/25 08:09 Sertraline Hcl 50 Mg Tablet PO 100 mg DAILY KOBE Administration Trazodone HCl 150 mg 07/27/25 22:41 07/28/25 20:27 Trazodone Hcl 50 Mg Tablet PO 150 mg HS PRN Administration Insomnia Vitamin D 25 mcg 07/28/25 09:00 07/29/25 08:08 Cholecalciferol (Vitamin D3) 25 Mcg (1,000 Units) Tablet PO 25 mcg DAILY KOBE Administration Radiology Results: ITS Impressions Head CT 07/27/25 15:50 Impression: 1.No acute intracranial abnormality. Abdomen/Pelvis CT 07/27/25 15:57 IMPRESSION: 1. Borderline bladder wall thickening and subtle haziness to the surrounding fat consistent with mild cystitis. Correlate with urinalysis. 2. Pleural thickening along the margins of a small likely complex left pleural effusion. 3. Mild cardiomegaly. 4. Nonspecific splenomegaly. 5. Small fat-containing umbilical hernia. Chest X-Ray 07/29/25 11:42 IMPRESSION: 1. No pneumothorax. 2. Worsening bibasilar atelectasis. 3. Small left pleural effusion persists. Labs Labs: Laboratory Tests 07/30/25 04:08 07/30/25 04:08 Calcium 7.4 L Phosphorus 2.9 Magnesium 1.7 Albumin 2.8 L Vitamin B12 995.0 H Folate 5.5 Microbiology 07/27/25 16:19 Blood Blood Culture - Preliminary 07/27/25 16:19 Blood Blood Culture - Preliminary
[2025-07-30] MEDS: EPOETIN ALFA-EPBX 10,000 UNITS/ML VIAL 10000 UNITS IV PUSH (10:26)
[2025-07-30] MEDS: ACETAMINOPHEN 325 MG TABLET 650 MG PO (10:46)
[2025-07-30 10:59] LABS: Vitamin B12 995.0 pg/mL (239-931)
--- NOTE | 2025-07-30 11:39 | PCOTNOTE ---
Patient out of the room at this time. Patient is in dialysis at this time. Will try back at a later time.
--- NOTE | 2025-07-30 12:29 | PC.NURSE ---
[id number] in dialysis for treatment
[2025-07-30] MEDS: SERTRALINE HCL 50 MG TABLET 100 MG PO (13:33)
[2025-07-30] MEDS: SACCHAROMYCES BOULARDII 250 MG CAPSULE PO ×2 (13:37→18:10)
[2025-07-30] MEDS: PANTOPRAZOLE 40 MG TABLET PO (13:38)
[2025-07-30] MEDS: buPROPion HCL XL (24 HR) 150 MG TABCR 300 MG PO (13:39)
[2025-07-30] MEDS: CHOLECALCIFEROL (VITAMIN D3) 25 MCG (1,000 UNITS) TABLET PO (13:44)
[2025-07-30] MEDS: GABAPENTIN 300 MG CAPSULE 600 MG PO (13:52)
--- NOTE | 2025-07-30 14:56 | P.PNAN_ITS ---
Anes - Prog Note Post-Op Date/Time: 07/30/25 14:56 Cardiovascular status: normal Respiratory status: normal Airway patency: baseline Mental status: baseline Post-Op hydration status: normal Vital Signs: Last Vital Signs Temp 97.3 F L 07/30/25 12:22 Pulse 74 07/30/25 13:01 Resp 18 07/30/25 13:01 BP 146/67 H 07/30/25 13:01 Pulse Ox 98 07/30/25 13:01 O2 Del Method Room Air 07/30/25 04:00 O2 Flow Rate 0 07/29/25 18:07 FiO2 0 07/29/25 18:07 Pain Score (VAS): 0 I/O: Intake & Output 07/29/25 07/30/25 07/30/25 23:59 07:59 15:59 Intake Total 540 1270 480 Output Total 300 1200 800 Balance 240 70 -320 Laboratory Tests 07/30/25 04:08 07/30/25 04:08 07/29/25 07/29/25 07/29/25 15:38 16:06 20:44 WBC RBC Hgb Hct MCV MCH MCHC RDW Plt Count MPV Immature Gran % (Auto) Neut % (Auto) Lymph % (Auto) [place] % (Auto) Eos % (Auto) Baso % (Auto) Lymph # (Auto) [place] # (Auto) Eos # (Auto) Baso # (Auto) Abs Immat Gran (auto) Absolute Neuts (auto) Absolute Nucleated RBC Nucleated RBC % Sodium 137 Potassium 3.5 Chloride 112 H Carbon Dioxide 15 L Anion Gap 10 BUN 33 H Creatinine 4.12 H Estim Creat Clear Calc 16 Estimated GFR 11 L Glucose 204 H POC Capillary Glucose 234 H 95 Calcium 7.0 L Phosphorus 3.1 Magnesium 1.9 Albumin 2.8 L Vitamin B12 Folate 07/30/25 07/30/25 07/30/25 04:08 07:11 12:45 WBC 9.5 RBC 2.32 L Hgb 7.3 L Hct 23.9 L MCV 103.0 H MCH 31.5 MCHC 30.5 L RDW 15.9 H Plt Count 140 L MPV 10.1 Immature Gran % (Auto) 0.6 H Neut % (Auto) 69.1 Lymph % (Auto) 22.6 [place] % (Auto) 6.6 Eos % (Auto) 0.8 Baso % (Auto) 0.3 Lymph # (Auto) 2.14 [place] # (Auto) 0.6 Eos # (Auto) 0.1 Baso # (Auto) 0.0 Abs Immat Gran (auto) 0.06 H Absolute Neuts (auto) 6.5 Absolute Nucleated RBC 0.000 Nucleated RBC % 0.0 Sodium 132 L Potassium 3.4 Chloride 103 Carbon Dioxide 26 Anion Gap 3 L BUN 20 H D Creatinine 2.44 H Estim Creat Clear Calc 27 Estimated GFR 20 L Glucose 141 H POC Capillary Glucose 144 H 115 H Calcium 7.4 L Phosphorus 2.9 Magnesium 1.7 Albumin 2.8 L Vitamin B12 995.0 H Folate 5.5 Microbiology 07/27/25 16:19 Blood Blood Culture - Preliminary 07/27/25 16:19 Blood Blood Culture - Preliminary Post-procedural complaints: none Patient Feedback: Patient satisfied with anesthetic care.
--- NOTE | 2025-07-30 15:51 | P.PNIM_ITS ---
Progress Note: A&P Assessment and Plan (1) Stage 5 chronic kidney disease: Code(s): N18.5 - Chronic kidney disease, stage 5 Status: Acute Assessment and Plan: -the patient has a AV fistula left forearm with positive bruit and thrill however nonfunctional per Nephrology Worsening with severe metabolic acidosis. Remains on bicarb drip. The patient stated that she is agreeable to move forward with hemodialysis. She will need dialysis access to initiate as left arm fistula not functional 07/29 Temporary HD catheter placed, tunnelled right IJ Baseline creatinine of 3.40, 07/29 4.41 Continue dialysis per Nephrology (2) Metabolic acidosis: Code(s): E87.20 - Acidosis, unspecified Status: Acute Assessment and Plan: -is multifactorial. -she has chronic renal failure -she is also diabetic -NO infection by urine C/s and NO infiltrate on CXR or CT Ab/Pelvis, 07/29 STOPPED meropenem due to hx of recurrent c diff -she was given a dose of sodium bicarb in the emergency room. -continue with bicarb tablet resolved (3) Anemia: Qualifiers: Anemia type: unspecified type Qualified Code(s): D64.9 - Anemia, unspecified Code(s): D64.9 - Anemia, unspecified Status: Acute Assessment and Plan: -anemia of chronic renal disease. 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 07/29 FBS 132 (5) Hypertension: Code(s): I10 - Essential (primary) hypertension Status: Chronic Assessment and Plan: -continue with hydralazine 07/29 129/50 (6) Hyperlipidemia LDL goal <100: Code(s): E78.5 - Hyperlipidemia, unspecified Status: Acute Assessment and Plan: -continue with atorvastatin and monitor liver function (7) Bipolar disorder: Qualifiers: Active/Remission status: remission status unspecified Qualified Code(s): F31.9 - Bipolar disorder, unspecified Code(s): F31.9 - Bipolar disorder, unspecified Status: Acute Assessment and Plan: -continue with home medication of bupropion, Rexulti, and trazodone. (8) Tobacco dependence: Code(s): F17.200 - Nicotine dependence, unspecified, uncomplicated Status: Chronic Assessment and Plan: -continue with nicotine -smoking cessation education Plan DVT prophylaxis on Sq Heparin Subjective Date/time seen: 07/30/25 15:51 Interval history: Comfortable at bedside On dialysis per Nephrology Review of Systems Review of Systems: * Constitutional: Positive for weakness, fatigue, somnolence. No fever reported. * Neurologic: Positive for confusion. No focal deficits reported. * Gastrointestinal: Poor appetite; RLQ abdominal tenderness. Stool described as black. Denies severe abdominal pain. * Genitourinary: History and symptoms concerning for UTI; culture pending. No dysuria, frequency, or hematuria documented in interview. * Endocrine: Blood sugars reported as well controlled per patient. * Cardiovascular: No chest pain or palpitations reported. * Respiratory: No shortness of breath or cough reported. * Musculoskeletal: Generalized weakness; no focal joint pain reported. * Skin: No rash reported. * Hematologic: No bleeding or bruising reported beyond stool color concern. * Psychiatric: Confusion as above; no agitation reported. All systems reviewed & are unremarkable except as noted in HPI and below Constitutional: Constitutional: Reports as per HPI and Reports no additional constitutional complaints Eyes: Eyes: Reports as per HPI and Reports no additional eye complaints ENT: Reports system reviewed and no additional complaints, except as documented and Reports Normal hearing present Cardiovascular: Cardiovascular: Reports no additional cardiovascular complaints Respiratory: Respiratory: Reports as per HPI and Reports no additional respiratory complaints Gastrointestinal: Gastrointestinal: Reports as per HPI and Reports no additional gastrointestinal complaints Genitourinary: Genitourinary: Reports no additional female genitourinary complaints Musculoskeletal: Musculoskeletal: Reports no additional musculoskeletal complaints Integumentary/Breasts: Skin/Breast: Reports system reviewed and no additional complaints, except as docu Neurologic: Reports system reviewed and no additional complaints, except as documented and Reports Normal hearing present Psychiatric: Psychiatric: Reports no additional psychiatric complaints and Reports as per HPI Hematologic/Lymphatic: Hematologic/Lymphatic: Reports no additional hematologic/lymphatic complaints Allergic/Immunologic: Allergic/Immunologic: Reports no additional allergic/immunologic complaints Exam Narrative: HEENT: EOMI, PERRL, sclerae nonicteric, pharyngeal mucosa pink and intact NECK: No JVD, adenopathy, or thyromegaly CHEST: Normal effort, bilateral LL crackles HEART: NL S1/S2, regular, 3/6 VICENTE LUSB & RUSB that radiates poorly ABDOMEN: BS+, soft, nontender, no mass, no bruits EXTREMITIES: No cyanosis, edema, or clubbing NEUROLOGIC: CN intact and symmetric to inspection. MUSCULOSKELETAL: Tone and strength symmetric, Right BKA stump intact PSYCH: Alert. Oriented to person, place, and time Const: General: cooperative, comfortable, no acute distress, well developed, awake, Physically active, average body habitus and well nourished Nutritional Appearance: average body habitus and well nourished Orientation/consciousness: oriented to person and oriented to place Limitations: no limitations HENMT: Head: normal to inspection, No palpable skull fracture present, normocephalic and atraumatic Eyes: General: appearance normal, both eyes and all related structures Alignment and Position: alignment normal Periorbital: periorbital findings normal Pupils: Equal, round and reactive pupils present Neck: Neck: normal visual inspection Chest: Chest palpation & inspection: normal inspection of the chest Resp: Effort & Inspection: normal respiratory effort Cardio: Palpation: normal PMI Rate: regular rate Rhythm: regular rhythm Heart sounds: S1 normal heart sound present and S2 normal heart sound present Peripheral pulses: Peripheral pulses 2+ throughout GI: Inspection: normal to inspection Auscultation: normal bowel sounds Rectal Exam: deferred Skin: General skin exam: normal color Lesions: no lesions Rashes: no rashes Trauma: no lacerations or abrasions Wounds: no wounds Hair: normal Nails: normal Other: excoriation under bilateral breast and under abdominal fold to the suprapubic area. She has friction ulcers x2 to her sacral area. Skin between the toes on the left foot are within normal limits. Her right [id number] amputation stump is free of any erythema. Neuro: General: oriented to person and oriented to place Cranial nerves: Yes Equal, round and reactive pupils present and Yes Normal hearing present Cognition (Neuro): normal cognition Speech: normal speech Motor exam (neuro): 5/5 motor strength present throughout Extrem: General: normal to inspection Right upper extremity: normal to inspection and shoulder/upper arm Left upper extremity: normal to inspection and shoulder/upper arm Other: Right [id number] amputation noted Psych: Appearance: grossly normal Mental Status: mental status grossly normal Speech and movement: Normal speech and movement present Affect: normal affect Attitude: cooperative Thought process: Normal thought process present Insight: Limited insight present (Psych) Judgement: Limited judgement present (Psych) Objective Data Vital Signs Vital Signs: Vital Signs - 24 hr 07/29/25 16:00 07/29/25 16:00 07/29/25 18:00 Temperature 98.4 F Pulse Rate 82 78 82 Respiratory Rate 20 Blood Pressure 119/65 Pulse Oximetry 96 Oxygen Delivery Oxygen Flow Rate Fraction of Inspired Oxygen 07/29/25 18:07 07/29/25 18:07 07/29/25 18:18 Temperature 98.4 F Pulse Rate 83 80 Respiratory Rate 17 Blood Pressure 124/66 136/67 Pulse Oximetry 96 Oxygen Delivery Oxygen Flow Rate 0 Fraction of Inspired Oxygen 0 07/29/25 18:30 07/29/25 18:45 07/29/25 19:00 Temperature Pulse Rate 80 82 81 Respiratory Rate Blood Pressure 140/70 132/69 131/71 Pulse Oximetry Oxygen Delivery Oxygen Flow Rate Fraction of Inspired Oxygen 07/29/25 19:15 07/29/25 19:30 07/29/25 19:45 Temperature Pulse Rate 81 82 80 Respiratory Rate Blood Pressure 116/90 160/75 H 139/69 Pulse Oximetry Oxygen Delivery Oxygen Flow Rate Fraction of Inspired Oxygen 07/29/25 20:00 07/29/25 20:00 07/29/25 20:00 Temperature Pulse Rate 80 78 Respiratory Rate Blood Pressure 139/69 Pulse Oximetry Oxygen Delivery Room Air Oxygen Flow Rate Fraction of Inspired Oxygen 07/29/25 20:15 07/29/25 20:30 07/29/25 20:48 Temperature Pulse Rate 79 79 79 Respiratory Rate Blood Pressure 135/71 152/65 H 167/70 H Pulse Oximetry Oxygen Delivery Oxygen Flow Rate Fraction of Inspired Oxygen 07/29/25 21:19 07/29/25 22:00 07/30/25 00:00 Temperature 98 F 98.4 F Pulse Rate 79 81 83 Respiratory Rate 14 16 Blood Pressure 147/70 H 135/57 L Pulse Oximetry 96 94 Oxygen Delivery Oxygen Flow Rate Fraction of Inspired Oxygen 07/30/25 00:00 07/30/25 00:00 07/30/25 02:00 Temperature Pulse Rate 80 77 Respiratory Rate Blood Pressure Pulse Oximetry Oxygen Delivery Room Air Oxygen Flow Rate Fraction of Inspired Oxygen 07/30/25 04:00 07/30/25 04:00 07/30/25 04:00 Temperature 98.5 F Pulse Rate 78 80 Respiratory Rate 16 Blood Pressure 129/52 L Pulse Oximetry 92 Oxygen Delivery Room Air Oxygen Flow Rate Fraction of Inspired Oxygen 07/30/25 06:30 07/30/25 07:49 07/30/25 08:00 Temperature 98.7 F Pulse Rate 81 83 79 Respiratory Rate 16 Blood Pressure 126/45 L Pulse Oximetry 93 Oxygen Delivery Oxygen Flow Rate Fraction of Inspired Oxygen 07/30/25 08:50 07/30/25 09:00 07/30/25 09:15 Temperature 99.1 F Pulse Rate 81 77 80 Respiratory Rate 16 Blood Pressure 135/62 142/69 H 138/70 Pulse Oximetry 94 Oxygen Delivery Oxygen Flow Rate Fraction of Inspired Oxygen 07/30/25 09:30 07/30/25 09:45 07/30/25 10:00 Temperature Pulse Rate 80 80 77 Respiratory Rate Blood Pressure 146/66 H 139/67 140/65 Pulse Oximetry Oxygen Delivery Oxygen Flow Rate Fraction of Inspired Oxygen 07/30/25 10:00 07/30/25 10:15 07/30/25 10:30 Temperature Pulse Rate 76 76 78 Respiratory Rate Blood Pressure 146/67 H 141/66 H Pulse Oximetry Oxygen Delivery Oxygen Flow Rate Fraction of Inspired Oxygen 07/30/25 10:45 07/30/25 10:47 07/30/25 11:00 Temperature Pulse Rate 77 77 76 Respiratory Rate Blood Pressure 143/70 H 174/81 H 153/70 H Pulse Oximetry Oxygen Delivery Oxygen Flow Rate Fraction of Inspired Oxygen 07/30/25 11:15 07/30/25 11:30 07/30/25 11:45 Temperature Pulse Rate 77 79 78 Respiratory Rate Blood Pressure 144/72 H 126/66 148/69 H Pulse Oximetry Oxygen Delivery Oxygen Flow Rate Fraction of Inspired Oxygen 07/30/25 12:01 07/30/25 12:22 07/30/25 12:45 Temperature 97.3 F L Pulse Rate 75 75 74 Respiratory Rate 16 Blood Pressure 161/74 H 158/76 H Pulse Oximetry 94 Oxygen Delivery Oxygen Flow Rate Fraction of Inspired Oxygen 07/30/25 13:07/30/25 14:00 Temperature Pulse Rate 74 75 Respiratory Rate 18 Blood Pressure 146/67 H Pulse Oximetry 98 Oxygen Delivery Oxygen Flow Rate Fraction of Inspired Oxygen Intake/Output Intake/Output: Intake & Output 07/27/25 07/28/25 07/29/25 07/30/25 23:59 23:59 22:59 23:59 Intake Total 1125 3732.5 1641 1750 Output Total 515 630 7904 Balance 1125 2882.5 791 -250 Meds/Results Medications: Active Medications Generic Name Dose Route Start Last Admin Trade Name Freq PRN Reason Stop Dose Admin Acetaminophen 650 mg 07/28/25 20:13 07/30/25 10:46 Acetaminophen 325 Mg Tablet PO 650 mg Q4H PRN Administration Mild Pain (1-3) or Fever Albuterol 2 puff 07/27/25 22:41 Albuterol Sulfate (*Sp) Aerosol 1 Puff INHALATION Q6HRT PRN Shortness Of Breath Or Wheezin Atorvastatin Calcium 10 mg 07/27/25 22:45 07/29/25 20:42 Atorvastatin 10 Mg Tablet BY MOUTH 10 mg HS KOBE Administration Bupropion HCl 300 mg 07/28/25 09:00 07/30/25 13:39 Bupropion Hcl Xl (24 Hr) 150 Mg Tabcr PO 300 mg DAILY KOBE Administration Dextrose 12.5 gm 07/28/25 13:08 Dextrose 50% 25 Gm/50 Ml Syringe IV PUSH PRN PRN Hypoglycemia Protocol Epoetin Miko-epbx 10,000 units 07/30/25 17:49 07/30/25 10:26 Epoetin Miko-Epbx 10,000 Units/Ml Vial IV PUSH 07/30/25 17:50 10,000 units ONCE ONE Administration Gabapentin 600 mg 07/28/25 09:00 07/29/25 20:42 Gabapentin 300 Mg Capsule PO 600 mg QAM KOBE Administration Gabapentin 300 mg 07/28/25 12:00 07/30/25 13:49 Gabapentin 300 Mg Capsule PO Not Given DAILY@1200,2100 KOBE Glucagon 1 mg 07/28/25 13:08 Glucagon For Inj 1 Mg Vial IM PRN PRN Hypoglycemia Protocol Glucose 15 gm 07/28/25 13:08 Glucose Oral Gel 15 Gm Of Glucse In 37.5 Gm Tube PO PRN PRN Hypoglycemia Protocol Hydralazine HCl 25 mg 07/30/25 09:00 07/30/25 13:39 Hydralazine Hcl 25 Mg Tablet PO 25 mg BID KOBE Administration Dextrose 1,000 mls @ 100 mls/hr 07/28/25 13:08 Dextrose 5% 1,000 Ml IVPB PRN PRN Hypoglycemia Protocol Albumin Human 50 mls @ 999 mls/hr 07/29/25 08:41 Albutein IVPB 08/28/25 08:40 Q10M PRN HYPOTENSION Insulin Aspart 3 - 6 units 07/28/25 08:00 07/30/25 13:46 Insulin Aspart (*Bkc) 100 Units/Ml SUB-Q Not Given TIDWM [facility] Protocol Lisinopril 10 mg 07/30/25 09:00 07/30/25 13:44 Lisinopril 10 Mg Tablet PO 10 mg DAILY KOBE Administration Miscellaneous Information 0 each 07/28/25 00:01 Rexulti May Use From Home Send To Pharmacy For Verification Once Brought In XX 08/27/25 00:00 CLARIFY KOBE Nicotine 1 patch 07/28/25 09:00 07/30/25 13:38 Nicotine (*Pbkc) 21 Mg Patch TRANSDERM Not Given DAILY [facility] Non-Formulary Medication 2 mg 07/28/25 09:00 Brexpiprazole [Rexulti] PO 08/27/25 08:59 DAILY [facility] Ondansetron HCl 4 mg 07/28/25 11:25 Ondansetron Inj 4 Mg/2 Ml Vial IV PUSH Q6H PRN Nausea And Vomiting Oxycodone/Acetaminophen 1 tablet 07/29/25 11:41 07/30/25 04:35 Oxycodone/Acetaminophen (*Crx) 5-325 Mg Tablet PO 1 tablet Q6H PRN Administration Pain Rated 7-10 Oxycodone/Acetaminophen 0.5 tablet 07/29/25 11:41 Oxycodone/Acetaminophen (*Crx) 5-325 Mg Tablet PO Q6H PRN Pain Rated 4-6 Pantoprazole Sodium 40 mg 07/28/25 09:00 07/30/25 13:38 Pantoprazole 40 Mg Tablet PO 40 mg DAILY [facility] Administration Saccharomyces Boulardii 250 mg 07/29/25 17:00 07/30/25 13:50 Saccharomyces Boulardii 250 Mg Capsule PO Not Given TID KOBE Sertraline HCl 100 mg 07/28/25 09:00 07/30/25 13:33 Sertraline Hcl 50 Mg Tablet PO 100 mg DAILY KOBE Administration Trazodone HCl 150 mg 07/27/25 22:41 07/28/25 20:27 Trazodone Hcl 50 Mg Tablet PO 150 mg HS PRN Administration Insomnia Vitamin D 25 mcg 07/28/25 09:00 07/30/25 13:44 Cholecalciferol (Vitamin D3) 25 Mcg (1,000 Units) Tablet PO 25 mcg DAILY KOBE Administration Radiology Results: ITS Impressions Head CT 07/27/25 15:50 Impression: 1.No acute intracranial abnormality. Abdomen/Pelvis CT 07/27/25 15:57 IMPRESSION: 1. Borderline bladder wall thickening and subtle haziness to the surrounding fat consistent with mild cystitis. Correlate with urinalysis. 2. Pleural thickening along the margins of a small likely complex left pleural effusion. 3. Mild cardiomegaly. 4. Nonspecific splenomegaly. 5. Small fat-containing umbilical hernia. Chest X-Ray 07/29/25 11:42 IMPRESSION: 1. No pneumothorax. 2. Worsening bibasilar atelectasis. 3. Small left pleural effusion persists. Labs Labs: Laboratory Results - last 24 hr 07/29/25 07/29/25 07/29/25 15:38 16:06 20:44 WBC RBC Hgb Hct MCV MCH MCHC RDW Plt Count MPV Immature Gran % (Auto) Neut % (Auto) Lymph % (Auto) [place] % (Auto) Eos % (Auto) Baso % (Auto) Lymph # (Auto) [place] # (Auto) Eos # (Auto) Baso # (Auto) Abs Immat Gran (auto) Absolute Neuts (auto) Absolute Nucleated RBC Nucleated RBC % Sodium 137 Potassium 3.5 Chloride 112 H Carbon Dioxide 15 L Anion Gap 10 BUN 33 H Creatinine 4.12 H Estim Creat Clear Calc 16 Estimated GFR 11 L Glucose 204 H POC Capillary Glucose 234 H 95 Calcium 7.0 L Phosphorus 3.1 Magnesium 1.9 Albumin 2.8 L Vitamin B12 Folate 07/30/25 07/30/25 07/30/25 04:08 07:11 12:45 WBC 9.5 RBC 2.32 L Hgb 7.3 L Hct 23.9 L MCV 103.0 H MCH 31.5 MCHC 30.5 L RDW 15.9 H Plt Count 140 L MPV 10.1 Immature Gran % (Auto) 0.6 H Neut % (Auto) 69.1 Lymph % (Auto) 22.6 [place] % (Auto) 6.6 Eos % (Auto) 0.8 Baso % (Auto) 0.3 Lymph # (Auto) 2.14 [place] # (Auto) 0.6 Eos # (Auto) 0.1 Baso # (Auto) 0.0 Abs Immat Gran (auto) 0.06 H Absolute Neuts (auto) 6.5 Absolute Nucleated RBC 0.000 Nucleated RBC % 0.0 Sodium 132 L Potassium 3.4 Chloride 103 Carbon Dioxide 26 Anion Gap 3 L BUN 20 H D Creatinine 2.44 H Estim Creat Clear Calc 27 Estimated GFR 20 L Glucose 141 H POC Capillary Glucose 144 H 115 H Calcium 7.4 L Phosphorus 2.9 Magnesium 1.7 Albumin 2.8 L Vitamin B12 995.0 H Folate 5.5 Quality VTE Prophylaxis VTE prophylaxis: mechanical ordered
--- NOTE | 2025-07-30 16:38 | WNDPHOTO ---
PHOTO ONLY - See Nursing Notes and/ or assessments for documentation.
[2025-07-30] MEDS: GABAPENTIN 300 MG CAPSULE PO (17:07)
[2025-07-30] MEDS: ATORVASTATIN 10 MG TABLET BY MOUTH (20:25)
[2025-07-31] VITALS (35 sets, daily range): BP systolic 124–174; BP diastolic 47–99; PULSE 71–84; RESP 16–20; TEMP 36.7–37.1; O2SAT 91–98; BMI 30.5
[2025-07-31 04:07] LABS: Hematocrit 26.2 % (37.0-47.0); Hemoglobin 7.9 g/dL (12.0-15.0); Immature Granulocyte Percent A 0.8 % (0-0.5); Lymphocytes Absolute Auto 2.65 K/mm3 (0.9-3.2); Mean Corpuscular HGB Conc 30.2 g/dl (32-36); Mean Corpuscular Hemoglobin 31.7 pg (26-34); Mean Corpuscular Volume 105.2 fl (80-100); Nucleated Red Blood Cells Absolute Auto 0.000 K/mm3 (0.0-0.012); Nucleated Red Blood Cells Perc 0.0 % (0.0-0.2); Platelet Count Result 146 k/mm3 (150-375); Red Blood Count 2.49 M/mm3 (4.2-5.4); White Blood Count 9.3 K/mm3 (4.5-10.0)
[2025-07-31 04:13] LABS: Alanine Aminotransferase 8 U/L (6-35); Albumin Level 2.8 g/dL (3.5-5.1); Alkaline Phosphatase 108 U/L (38-126); Anion Gap 5 mmol/L (4-12); Aspartate Amino Transferase 20 U/L (14-36); Bilirubin,Total 0.2 mg/dL (0.2-1.3); Blood Urea Nitrogen 18 mg/dL (7-17); Calcium 7.5 mg/dL (8.4-10.2); Carbon Dioxide 24 mmol/L (22-30); Chloride 106 mmol/L (98-107); Estimated CRCL calculation 32 ml/min; Estimated Glomerular Filt Rate 25; Glucose 126 mg/dL (65-110); Magnesium 2.0 mg/dL (1.6-2.3); Potassium 3.1 mmol/L (3.4-5.0); Sodium 135 mmol/L (137-145); Total Protein 5.6 g/dL (6.3-8.2)
[2025-07-31 04:25] LABS: Parathyroid Intact 230.3 pg/mL (14.5-75.2)
[2025-07-31 04:27] LABS: Iron 49 ug/dL (37-170)
[2025-07-31 04:36] LABS: Percent Iron Saturation 41 % (20-50)
[2025-07-31 04:50] LABS: Macrocytosis 1+ (NORMAL); Schistocytes None Seen; Stomatocytes 1+
[2025-07-31 05:03] LABS: Ferritin 363.00 ng/mL (11.1-264)
[2025-07-31] MEDS: PANTOPRAZOLE 40 MG TABLET PO (08:20)
[2025-07-31] MEDS: GABAPENTIN 300 MG CAPSULE 600 MG PO (08:21)
[2025-07-31] MEDS: buPROPion HCL XL (24 HR) 150 MG TABCR 300 MG PO (08:21)
[2025-07-31] MEDS: SERTRALINE HCL 50 MG TABLET 100 MG PO (08:21)
[2025-07-31] MEDS: POTASSIUM CHLORIDE 20 MEQ ER TABLET 40 MEQ PO (08:23)
[2025-07-31] MEDS: SACCHAROMYCES BOULARDII 250 MG CAPSULE PO ×3 (08:24→17:46)
[2025-07-31] MEDS: CHOLECALCIFEROL (VITAMIN D3) 25 MCG (1,000 UNITS) TABLET PO (08:24)
[2025-07-31] MEDS: GABAPENTIN 300 MG CAPSULE PO ×2 (12:04→20:41)
--- NOTE | 2025-07-31 13:45 | PC.NURSE ---
to dialysis room for procedure via bed accompanied by staff
--- NOTE | 2025-07-31 14:30 | PCPTNOTE ---
The patient treatment was not able to be completed on 07/31/2025 due to patient out of the room for dialysis. Will plan to continue treatment per plan of care.
--- NOTE | 2025-07-31 14:48 | P.PNNP_ITS ---
Progress Note: A&P Assessment and Plan (1) End stage renal disease: Code(s): N18.6 - End stage renal disease Status: Acute Assessment and Plan: * secondary to biopsy-proven diabetic nephropathy/nephrosclerosis along with contributions from hypertension, and vascular disease in association with recurrent bouts of acute kidney injury/ acute renal failure secondary to her previous urinary tract infections as well as recurrent C diff colitis * progression of underlying CKD noted: * uremic symptoms noted (nausea + vomiting + poor appetite + fatigue/lethargy + altered mentation...etc) - suspect acute UTI may have precipitated worsening uremic symptoms * persistent metabolic acidosis * relative anemia * HOWEVER, no critical electrolytes and volume status relatively * unfortunately, AVF not able to be used currently due to small size... * this was confirmed by evaluation by one of the acute dialysis nurses here at [facility] * s/p tunneled HD catheter (on 07/29) * HD day before yesterday, yesterday, and today * outpatient dialysis arrangements being finalized * noted interest in home hemodialysis (2) Metabolic acidosis: Code(s): E87.20 - Acidosis, unspecified Status: Acute Assessment and Plan: * slow improvement * quite severe on presentation * due to several issues: * worsening renal dysfunction/failure * acute infection (UTI) * known diabetes * known history of GI issues(?) * s/p bicarb gtt and oral sodium bicarbonate * ongoing correction with dialysis (3) UTI (urinary tract infection): Code(s): N39.0 - Urinary tract infection, site not specified Status: Acute Assessment and Plan: * as suggested by admission UA * UA: with 3+ blood, positive nitrates, 3+ leukocyte esterase, urine wbc's greater than 100, and 4+ bacteria * follow culture data - urine culture not done on admission * re-ordered and pending * on antibiotics * known history of recurrent UTIs * Urology recommendations noted (4) Hypokalemia: Code(s): E87.6 - Hypokalemia Status: Resolved Assessment and Plan: * slowly improvement * due to several issues: * poor oral intake (nausea/vomiting) * bicarb fluids + oral bicarbonate supplementaion * low magnesium * cautiously IV and oral replacement as tolerated * follow magnesium levels * follow repeat K+ levels (5) Anemia: Qualifiers: Anemia type: unspecified type Qualified Code(s): D64.9 - Anemia, unspecified Code(s): D64.9 - Anemia, unspecified Status: Acute Assessment and Plan: * presumably due to ESRD * suspect some dilutional effects from IVF resuscitation * no evidence of bleeding * consider checking iron studies * however, would avoid IV venofer in the the context of a possible infection (UTI) * Epogen with HD * follow H/H (6) Hypertension: Code(s): I10 - Essential (primary) hypertension Status: Chronic Assessment and Plan: * fluctuating at this time * since on dialysis now, added lisinopril (and titrate as needed) * continue hydralazine * follow trend of hemodynamics (7) IDDM (insulin dependent diabetes mellitus): Status: Chronic Assessment and Plan: * follow accu-cheks * glycemic control per hospitalist (8) Generalized weakness: Code(s): R53.1 - Weakness Status: Acute Assessment and Plan: * presumably due to ESRD in conjunction with uremia and acute infection/UTI * PT/OT * continue supportive therapy Not opposed to discharge from renal perspective if otherwise medically stable -- I will try to facilitate transition to home HD given her interest in this modality. Will continue to follow. L Subjective Date/time seen: 07/31/25 14:48 Interval history: Follow-up for end stage renal disease with initiation of hemodialysis. Tolerated dialysis treatment yesterday and tolerating dialysis treatment at the time of my visit (seen on HD at 2:40pm); no apparent distress voiced when seen; otherwise, feels reasonably well. Exam 2 Narrative: General: WD/WN female in NAD Heart: normal S1 and S2; no rub Lungs: clear anteriorly Abdomen: soft, nontender, nondistended, positive bowel sounds Extremities: no cyanosis or clubbing; no edema; s/p right BKA Skin: no rash Objective Data Vital Signs Vital Signs: Vital Signs Temp Pulse Resp BP Pulse Ox 07/31/25 14:45 74 141/60 H 07/31/25 14:30 77 140/59 L 07/31/25 14:15 77 134/57 L 07/31/25 14:00 78 132/60 07/31/25 13:45 78 128/99 H 07/31/25 13:40 79 136/60 07/31/25 13:30 98.8 F 80 20 124/60 96 07/31/25 12:30 76 07/31/25 11:27 98.5 F 76 20 146/50 H 95 07/31/25 10:00 73 07/31/25 08:20 72 07/31/25 07:48 98.2 F 72 18 147/59 H 95 07/31/25 06:00 72 07/31/25 04:00 74 07/31/25 03:56 98.6 F 74 18 139/54 L 91 07/31/25 02:00 77 07/31/25 00:00 76 07/30/25 23:37 98.8 F 77 18 141/52 H 94 07/30/25 22:00 73 07/30/25 20:00 84 07/30/25 20:00 98.1 F 73 18 141/51 H 96 07/30/25 18:00 73 07/30/25 16:30 71 07/30/25 16:00 97.6 F 71 18 149/56 H 96 Intake/Output Intake/Output: Intake & Output 07/28/25 07/29/25 07/30/25 07/31/25 23:59 22:59 23:59 23:59 Intake Total 3732.5 1641 2230 630 Output Total 042 063 8250 200 Balance 2882.5 791 -160 430 Meds/Results Medications: Active Medications Generic Name Dose Route Start Last Admin Trade Name Freq PRN Reason Stop Dose Admin Acetaminophen 650 mg 07/28/25 20:13 07/30/25 10:46 Acetaminophen 325 Mg Tablet PO 650 mg Q4H PRN Administration Mild Pain (1-3) or Fever Albuterol 2 puff 07/27/25 22:41 Albuterol Sulfate (*Sp) Aerosol 1 Puff INHALATION Q6HRT PRN Shortness Of Breath Or Wheezin Atorvastatin Calcium 10 mg 07/27/25 22:45 07/30/25 20:25 Atorvastatin 10 Mg Tablet BY MOUTH 10 mg HS KOBE Administration Bupropion HCl 300 mg 07/28/25 09:00 07/31/25 08:21 Bupropion Hcl Xl (24 Hr) 150 Mg Tabcr PO 300 mg DAILY KOBE Administration Dextrose 12.5 gm 07/28/25 13:08 Dextrose 50% 25 Gm/50 Ml Syringe IV PUSH PRN PRN Hypoglycemia Protocol Epoetin Miko-epbx 20,000 units 07/31/25 15:00 Epoetin Miko-Epbx 20,000 Units/Ml Vial IV PUSH 07/31/25 15:01 ONCE ONE Gabapentin 600 mg 07/28/25 09:00 07/31/25 08:21 Gabapentin 300 Mg Capsule PO 600 mg QAM KOBE Administration Gabapentin 300 mg 07/31/25 12:00 07/31/25 12:04 Gabapentin 300 Mg Capsule PO 300 mg DAILY@1200,2100 KOBE Administration Glucagon 1 mg 07/28/25 13:08 Glucagon For Inj 1 Mg Vial IM PRN PRN Hypoglycemia Protocol Glucose 15 gm 07/28/25 13:08 Glucose Oral Gel 15 Gm Of Glucse In 37.5 Gm Tube PO PRN PRN Hypoglycemia Protocol Heparin Sodium (Porcine) 5,000 units 07/30/25 21:00 07/31/25 10:55 Heparin Sodium 5,000 Units/Ml Vial SUB-Q 5,000 units Q12HR KOBE Administration Hydralazine HCl 25 mg 07/30/25 09:00 07/31/25 08:24 Hydralazine Hcl 25 Mg Tablet PO 25 mg BID KOBE Administration Dextrose 1,000 mls @ 100 mls/hr 07/28/25 13:08 Dextrose 5% 1,000 Ml IVPB PRN PRN Hypoglycemia Protocol Albumin Human 50 mls @ 999 mls/hr 07/29/25 08:41 Albutein IVPB 08/28/25 08:40 Q10M PRN HYPOTENSION Insulin Aspart 3 - 6 units 07/28/25 08:00 07/31/25 12:04 Insulin Aspart (*Bkc) 100 Units/Ml SUB-Q Not Given TIDWM KOBE Protocol Lisinopril 10 mg 07/30/25 09:00 07/31/25 08:24 Lisinopril 10 Mg Tablet PO 10 mg DAILY KOBE Administration Miscellaneous Information 0 each 07/28/25 00:01 Rexulti May Use From Home Send To Pharmacy For Verification Once Brought In XX 08/27/25 00:00 CLARIFY KOBE Nicotine 1 patch 07/28/25 09:00 07/31/25 08:25 Nicotine (*Pbkc) 21 Mg Patch TRANSDERM Not Given DAILY KOBE Non-Formulary Medication 2 mg 07/28/25 09:00 Brexpiprazole [Rexulti] PO 08/27/25 08:59 DAILY KOBE Ondansetron HCl 4 mg 07/28/25 11:25 Ondansetron Inj 4 Mg/2 Ml Vial IV PUSH Q6H PRN Nausea And Vomiting Oxycodone/Acetaminophen 1 tablet 07/29/25 11:41 07/30/25 04:35 Oxycodone/Acetaminophen (*Crx) 5-325 Mg Tablet PO 1 tablet Q6H PRN Administration Pain Rated 7-10 Oxycodone/Acetaminophen 0.5 tablet 07/29/25 11:41 Oxycodone/Acetaminophen (*Crx) 5-325 Mg Tablet PO Q6H PRN Pain Rated 4-6 Pantoprazole Sodium 40 mg 07/28/25 09:00 07/31/25 08:20 Pantoprazole 40 Mg Tablet PO 40 mg DAILY KOBE Administration Saccharomyces Boulardii 250 mg 07/29/25 17:00 07/31/25 12:04 Saccharomyces Boulardii 250 Mg Capsule PO 250 mg TID KOBE Administration Sertraline HCl 100 mg 07/28/25 09:00 07/31/25 08:21 Sertraline Hcl 50 Mg Tablet PO 100 mg DAILY KOBE Administration Trazodone HCl 150 mg 07/27/25 22:41 07/30/25 20:25 Trazodone Hcl 50 Mg Tablet PO 150 mg HS PRN Administration Insomnia Vitamin D 25 mcg 07/28/25 09:00 07/31/25 08:24 Cholecalciferol (Vitamin D3) 25 Mcg (1,000 Units) Tablet PO 25 mcg DAILY KOBE Administration Radiology Results: ITS Impressions Head CT 07/27/25 15:50 Impression: 1.No acute intracranial abnormality. Abdomen/Pelvis CT 07/27/25 15:57 IMPRESSION: 1. Borderline bladder wall thickening and subtle haziness to the surrounding fat consistent with mild cystitis. Correlate with urinalysis. 2. Pleural thickening along the margins of a small likely complex left pleural effusion. 3. Mild cardiomegaly. 4. Nonspecific splenomegaly. 5. Small fat-containing umbilical hernia. Chest X-Ray 07/29/25 11:42 IMPRESSION: 1. No pneumothorax. 2. Worsening bibasilar atelectasis. 3. Small left pleural effusion persists. Labs Labs: Laboratory Tests 07/31/25 03:40 07/31/25 03:40 Calcium 7.5 L Phosphorus 2.8 Magnesium 2.0 Iron 49 TIBC 120 L % Saturation 41 Ferritin 363.00 H Total Bilirubin 0.2 AST 20 ALT 8 Alkaline Phosphatase 108 Total Protein 5.6 L Albumin 2.8 L Vitamin D 25-Hydroxy 39.6 PTH Intact 230.3 H Microbiology 07/27/25 16:19 Blood Blood Culture - Preliminary 07/27/25 16:19 Blood Blood Culture - Preliminary
[2025-07-31] MEDS: EPOETIN ALFA-EPBX 20,000 UNITS/ML VIAL 20000 UNITS IV PUSH (15:44)
--- NOTE | 2025-07-31 18:49 | P.PNIM_ITS ---
Progress Note: A&P Assessment and Plan (1) Stage 5 chronic kidney disease: Code(s): N18.5 - Chronic kidney disease, stage 5 Status: Acute Assessment and Plan: -the patient has a AV fistula left forearm with positive bruit and thrill however nonfunctional per Nephrology Worsening with severe metabolic acidosis. Remains on bicarb drip. The patient stated that she is agreeable to move forward with hemodialysis. She will need dialysis access to initiate as left arm fistula not functional 07/29 Temporary HD catheter placed, tunnelled right IJ Baseline creatinine of 3.40, 07/29 4.41 Continue dialysis per Nephrology-outpatient dialysis scheduled with [facility] to start 08/02 (2) Metabolic acidosis: Code(s): E87.20 - Acidosis, unspecified Status: Acute Assessment and Plan: -is multifactorial. -she has chronic renal failure -she is also diabetic -NO infection by urine C/s and NO infiltrate on CXR or CT Ab/Pelvis, 07/29 STOPPED meropenem due to hx of recurrent c diff -she was given a dose of sodium bicarb in the emergency room. -continue with bicarb tablet resolved (3) Anemia: Qualifiers: Anemia type: unspecified type Qualified Code(s): D64.9 - Anemia, unspecified Code(s): D64.9 - Anemia, unspecified Status: Acute Assessment and Plan: -anemia of chronic renal disease. -no current signs and symptoms of active bleeding on Epoetin per Nephrology Iron panel pending, Hb 7.3 B12/folate wnl Nephrology following (4) Type 2 diabetes mellitus with hyperglycemia, with long-term current use of insulin: Code(s): E11.65 - Type 2 diabetes mellitus with hyperglycemia; Z79.4 - assisted (current) use of insulin Status: Acute Assessment and Plan: -point of care bedside glucose AC and HS with sliding scale insulin. 07/29 FBS 132 (5) Hypertension: Code(s): I10 - Essential (primary) hypertension Status: Chronic Assessment and Plan: -continue with hydralazine 07/29 129/50 (6) Hyperlipidemia LDL goal <100: Code(s): E78.5 - Hyperlipidemia, unspecified Status: Acute Assessment and Plan: -continue with atorvastatin and monitor liver function (7) Bipolar disorder: Qualifiers: Active/Remission status: remission status unspecified Qualified Code(s): F31.9 - Bipolar disorder, unspecified Code(s): F31.9 - Bipolar disorder, unspecified Status: Acute Assessment and Plan: -continue with home medication of bupropion, Rexulti, and trazodone. (8) Tobacco dependence: Code(s): F17.200 - Nicotine dependence, unspecified, uncomplicated Status: Chronic Assessment and Plan: -continue with nicotine -smoking cessation education Plan For home health for PT DVT prophylaxis on Sq Heparin Recommend outpatient PCP follow-up for systolic murmur heard on auscultation Can be discharged tomorrow Subjective Date/time seen: 07/31/25 18:49 Review of Systems Review of Systems: * Constitutional: Positive for weakness, fatigue, somnolence. No fever reported. * Neurologic: Positive for confusion. No focal deficits reported. * Gastrointestinal: Poor appetite; RLQ abdominal tenderness. Stool described as black. Denies severe abdominal pain. * Genitourinary: History and symptoms concerning for UTI; culture pending. No dysuria, frequency, or hematuria documented in interview. * Endocrine: Blood sugars reported as well controlled per patient. * Cardiovascular: No chest pain or palpitations reported. * Respiratory: No shortness of breath or cough reported. * Musculoskeletal: Generalized weakness; no focal joint pain reported. * Skin: No rash reported. * Hematologic: No bleeding or bruising reported beyond stool color concern. * Psychiatric: Confusion as above; no agitation reported. All systems reviewed & are unremarkable except as noted in HPI and below Constitutional: Constitutional: Reports as per HPI and Reports no additional constitutional complaints Eyes: Eyes: Reports as per HPI and Reports no additional eye complaints ENT: Reports system reviewed and no additional complaints, except as documented and Reports Normal hearing present Cardiovascular: Cardiovascular: Reports no additional cardiovascular complaints Respiratory: Respiratory: Reports as per HPI and Reports no additional respiratory complaints Gastrointestinal: Gastrointestinal: Reports as per HPI and Reports no additional gastrointestinal complaints Genitourinary: Genitourinary: Reports no additional female genitourinary complaints Musculoskeletal: Musculoskeletal: Reports no additional musculoskeletal complaints Integumentary/Breasts: Skin/Breast: Reports system reviewed and no additional complaints, except as docu Neurologic: Reports system reviewed and no additional complaints, except as documented and Reports Normal hearing present Psychiatric: Psychiatric: Reports no additional psychiatric complaints and Reports as per HPI Hematologic/Lymphatic: Hematologic/Lymphatic: Reports no additional hematologic/lymphatic complaints Allergic/Immunologic: Allergic/Immunologic: Reports no additional allergic/immunologic complaints Exam Narrative: HEENT: EOMI, PERRL, sclerae nonicteric, pharyngeal mucosa pink and intact NECK: No JVD, adenopathy, or thyromegaly CHEST: Normal effort, bilateral LL crackles HEART: NL S1/S2, regular, 3/6 VICENTE LUSB & RUSB that radiates poorly ABDOMEN: BS+, soft, nontender, no mass, no bruits EXTREMITIES: No cyanosis, edema, or clubbing NEUROLOGIC: CN intact and symmetric to inspection. MUSCULOSKELETAL: Tone and strength symmetric, Right BKA stump intact PSYCH: Alert. Oriented to person, place, and time Const: General: cooperative, comfortable, no acute distress, well developed, awake, Physically active, average body habitus and well nourished Nutritional Appearance: average body habitus and well nourished Orientation/consciousne ss: oriented to person and oriented to place Limitations: no limitations HENMT: Head: normal to inspection, No palpable skull fracture present, normocephalic and atraumatic Eyes: General: appearance normal, both eyes and all related structures Alignment and Position: alignment normal Periorbital: periorbital findings normal Pupils: Equal, round and reactive pupils present Neck: Neck: normal visual inspection Chest: Chest palpation & inspection: normal inspection of the chest Resp: Effort & Inspection: normal respiratory effort Cardio: Palpation: normal PMI Rate: regular rate Rhythm: regular rhythm Heart sounds: S1 normal heart sound present and S2 normal heart sound present Peripheral pulses: Peripheral pulses 2+ throughout GI: Inspection: normal to inspection Auscultation: normal bowel sounds Rectal Exam: deferred Skin: General skin exam: normal color Lesions: no lesions Rashes: no rashes Trauma: no lacerations or abrasions Wounds: no wounds Hair: normal Nails: normal Other: excoriation under bilateral breast and under abdominal fold to the suprapubic area. She has friction ulcers x2 to her sacral area. Skin between the toes on the left foot are within normal limits. Her right [id number] amputation stump is free of any erythema. Neuro: General: oriented to person and oriented to place Cranial nerves: Yes Equal, round and reactive pupils present and Yes Normal hearing present Cognition (Neuro): normal cognition Speech: normal speech Motor exam (neuro): 5/5 motor strength present throughout Extrem: General: normal to inspection Right upper extremity: normal to inspection and shoulder/upper arm Left upper extremity: normal to inspection and shoulder/upper arm Other: Right [id number] amputation noted Psych: Appearance: grossly normal Mental Status: mental status grossly normal Speech and movement: Normal speech and movement present Affect: normal affect Attitude: cooperative Thought process: Normal thought process present Insight: Limited insight present (Psych) Judgement: Limited judgement present (Psych) Objective Data Vital Signs Vital Signs: Vital Signs - 24 hr 07/30/25 20:00 07/30/25 20:00 07/30/25 22:00 Temperature 98.1 F Pulse Rate 73 84 73 Respiratory Rate 18 Blood Pressure 141/51 H Pulse Oximetry 96 07/30/25 23:37 07/31/25 00:00 07/31/25 02:00 Temperature 98.8 F Pulse Rate 77 76 77 Respiratory Rate 18 Blood Pressure 141/52 H Pulse Oximetry 94 07/31/25 03:56 07/31/25 04:00 07/31/25 06:00 Temperature 98.6 F Pulse Rate 74 74 72 Respiratory Rate 18 Blood Pressure 139/54 L Pulse Oximetry 91 07/31/25 07:48 07/31/25 08:20 07/31/25 10:00 Temperature 98.2 F Pulse Rate 72 72 73 Respiratory Rate 18 Blood Pressure 147/59 H Pulse Oximetry 95 07/31/25 11:27 07/31/25 12:30 07/31/25 13:30 Temperature 98.5 F 98.8 F Pulse Rate 76 76 80 Respiratory Rate 20 20 Blood Pressure 146/50 H 124/60 Pulse Oximetry 95 96 07/31/25 13:40 07/31/25 13:45 07/31/25 14:00 Temperature Pulse Rate 79 78 78 Respiratory Rate Blood Pressure 136/60 128/99 H 132/60 Pulse Oximetry 07/31/25 14:15 07/31/25 14:30 07/31/25 14:45 Temperature Pulse Rate 77 77 74 Respiratory Rate Blood Pressure 134/57 L 140/59 L 141/60 H Pulse Oximetry 07/31/25 15:00 07/31/25 15:15 07/31/25 15:30 Temperature Pulse Rate 72 73 73 Respiratory Rate Blood Pressure 149/68 H 148/61 H 163/76 H Pulse Oximetry 07/31/25 15:45 07/31/25 16:00 07/31/25 16:15 Temperature Pulse Rate 75 74 71 Respiratory Rate Blood Pressure 158/70 H 161/67 H 168/68 H Pulse Oximetry 07/31/25 16:30 07/31/25 16:45 07/31/25 17:00 Temperature Pulse Rate 72 72 72 Respiratory Rate Blood Pressure 174/72 H 173/73 H 173/78 H Pulse Oximetry 07/31/25 17:12 07/31/25 17:16 07/31/25 17:55 Temperature 98.4 F 98.4 F Pulse Rate 74 75 72 Respiratory Rate 16 16 Blood Pressure 160/67 H 173/74 H 171/57 H Pulse Oximetry 95 94 Intake/Output Intake/Output: Intake & Output 07/28/25 07/29/25 07/30/25 07/31/25 23:59 22:59 23:59 23:59 Intake Total 3732.5 1641 2230 1110 Output Total 845 256 5574 1325 Balance 2882.5 779 -095 -659 Meds/Results Medications: Active Medications Generic Name Dose Route Start Last Admin Trade Name Freq PRN Reason Stop Dose Admin Acetaminophen 650 mg 07/28/25 20:13 07/30/25 10:46 Acetaminophen 325 Mg Tablet PO 650 mg Q4H PRN Administration Mild Pain (1-3) or Fever Albuterol 2 puff 07/27/25 22:41 Albuterol Sulfate (*Sp) Aerosol 1 Puff INHALATION Q6HRT PRN Shortness Of Breath Or Wheezin Atorvastatin Calcium 10 mg 07/27/25 22:45 07/30/25 20:25 Atorvastatin 10 Mg Tablet BY MOUTH 10 mg HS KOBE Administration Bupropion HCl 300 mg 07/28/25 09:00 07/31/25 08:21 Bupropion Hcl Xl (24 Hr) 150 Mg Tabcr PO 300 mg DAILY KOBE Administration Dextrose 12.5 gm 07/28/25 13:08 Dextrose 50% 25 Gm/50 Ml Syringe IV PUSH PRN PRN Hypoglycemia Protocol Gabapentin 600 mg 07/28/25 09:00 07/31/25 08:21 Gabapentin 300 Mg Capsule PO 600 mg QAM KOBE Administration Gabapentin 300 mg 07/31/25 12:00 07/31/25 12:04 Gabapentin 300 Mg Capsule PO 300 mg DAILY@1200,2100 KOBE Administration Glucagon 1 mg 07/28/25 13:08 Glucagon For Inj 1 Mg Vial IM PRN PRN Hypoglycemia Protocol Glucose 15 gm 07/28/25 13:08 Glucose Oral Gel 15 Gm Of Glucse In 37.5 Gm Tube PO PRN PRN Hypoglycemia Protocol Heparin Sodium (Porcine) 5,000 units 07/30/25 21:00 07/31/25 10:55 Heparin Sodium 5,000 Units/Ml Vial SUB-Q 5,000 units Q12HR KOBE Administration Hydralazine HCl 25 mg 07/30/25 09:00 07/31/25 17:46 Hydralazine Hcl 25 Mg Tablet PO 25 mg BID KOBE Administration Dextrose 1,000 mls @ 100 mls/hr 07/28/25 13:08 Dextrose 5% 1,000 Ml IVPB PRN PRN Hypoglycemia Protocol Albumin Human 50 mls @ 999 mls/hr 07/29/25 08:41 Albutein IVPB 08/28/25 08:40 Q10M PRN HYPOTENSION Insulin Aspart 3 - 6 units 07/28/25 08:00 07/31/25 17:46 Insulin Aspart (*Bkc) 100 Units/Ml SUB-Q Not Given TIDWM [facility] Protocol Lisinopril 10 mg 07/30/25 09:00 07/31/25 08:24 Lisinopril 10 Mg Tablet PO 10 mg DAILY KOBE Administration Miscellaneous Information 0 each 07/28/25 00:01 Rexulti May Use From Home Send To Pharmacy For Verification Once Brought In XX 08/27/25 00:00 CLARIFY KOBE Nicotine 1 patch 07/28/25 09:00 07/31/25 08:25 Nicotine (*Pbkc) 21 Mg Patch TRANSDERM Not Given DAILY [facility] Non-Formulary Medication 2 mg 07/28/25 09:00 Brexpiprazole [Rexulti] PO 08/27/25 08:59 DAILY [facility] Ondansetron HCl 4 mg 07/28/25 11:25 Ondansetron Inj 4 Mg/2 Ml Vial IV PUSH Q6H PRN Nausea And Vomiting Oxycodone/Acetaminophen 1 tablet 07/29/25 11:41 07/30/25 04:35 Oxycodone/Acetaminophen (*Crx) 5-325 Mg Tablet PO 1 tablet Q6H PRN Administration Pain Rated 7-10 Oxycodone/Acetaminophen 0.5 tablet 07/29/25 11:41 Oxycodone/Acetaminophen (*Crx) 5-325 Mg Tablet PO Q6H PRN Pain Rated 4-6 Pantoprazole Sodium 40 mg 07/28/25 09:00 07/31/25 08:20 Pantoprazole 40 Mg Tablet PO 40 mg DAILY KOBE Administration Saccharomyces Boulardii 250 mg 07/29/25 17:00 07/31/25 17:46 Saccharomyces Boulardii 250 Mg Capsule PO 250 mg TID KOBE Administration Sertraline HCl 100 mg 07/28/25 09:00 07/31/25 08:21 Sertraline Hcl 50 Mg Tablet PO 100 mg DAILY KOBE Administration Trazodone HCl 150 mg 07/27/25 22:41 07/30/25 20:25 Trazodone Hcl 50 Mg Tablet PO 150 mg HS PRN Administration Insomnia Vitamin D 25 mcg 07/28/25 09:00 07/31/25 08:24 Cholecalciferol (Vitamin D3) 25 Mcg (1,000 Units) Tablet PO 25 mcg DAILY KOBE Administration Radiology Results: ITS Impressions Head CT 07/27/25 15:50 Impression: 1.No acute intracranial abnormality. Abdomen/Pelvis CT 07/27/25 15:57 IMPRESSION: 1. Borderline bladder wall thickening and subtle haziness to the surrounding fat consistent with mild cystitis. Correlate with urinalysis. 2. Pleural thickening along the margins of a small likely complex left pleural effusion. 3. Mild cardiomegaly. 4. Nonspecific splenomegaly. 5. Small fat-containing umbilical hernia. Chest X-Ray 07/29/25 11:42 IMPRESSION: 1. No pneumothorax. 2. Worsening bibasilar atelectasis. 3. Small left pleural effusion persists. Labs Labs: Laboratory Results - last 24 hr 07/30/25 07/31/25 07/31/25 19:41 03:40 07:18 WBC 9.3 RBC 2.49 L Hgb 7.9 L Hct 26.2 L MCV 105.2 H MCH 31.7 MCHC 30.2 L RDW 15.7 H Plt Count 146 L MPV 10.2 Immature Gran % (Auto) 0.8 H Neut % (Auto) 62.4 Lymph % (Auto) 28.5 [place] % (Auto) 6.9 Eos % (Auto) 1.0 Baso % (Auto) 0.4 Lymph # (Auto) 2.65 [place] # (Auto) 0.6 Eos # (Auto) 0.1 Baso # (Auto) 0.0 Abs Immat Gran (auto) 0.07 H Absolute Neuts (auto) 5.8 Absolute Nucleated RBC 0.000 Band Neutrophils % Not Reportable Nucleated RBC % 0.0 Platelet Estimate Slightly decreased Macrocytosis 1+ Stomatocytes 1+ Schistocytes None seen Sodium 135 L Potassium 3.1 L Chloride 106 Carbon Dioxide 24 Anion Gap 5 BUN 18 H Creatinine 2.04 H Estim Creat Clear Calc 32 Estimated GFR 25 L Glucose 126 H POC Capillary Glucose 281 H 148 H Calcium 7.5 L Phosphorus 2.8 Magnesium 2.0 Iron 49 TIBC 120 L % Saturation 41 Ferritin 363.00 H Total Bilirubin 0.2 AST 20 ALT 8 Alkaline Phosphatase 108 Total Protein 5.6 L Albumin 2.8 L Vitamin D 25-Hydroxy 39.6 PTH Intact 230.3 H 07/31/25 07/31/25 11:16 17:52 WBC RBC Hgb Hct MCV MCH MCHC RDW Plt Count MPV Immature Gran % (Auto) Neut % (Auto) Lymph % (Auto) [place] % (Auto) Eos % (Auto) Baso % (Auto) Lymph # (Auto) [place] # (Auto) Eos # (Auto) Baso # (Auto) Abs Immat Gran (auto) Absolute Neuts (auto) Absolute Nucleated RBC Band Neutrophils % Nucleated RBC % Platelet Estimate Macrocytosis Stomatocytes Schistocytes Sodium Potassium Chloride Carbon Dioxide Anion Gap BUN Creatinine Estim Creat Clear Calc Estimated GFR Glucose POC Capillary Glucose 142 H 125 H Calcium Phosphorus Magnesium Iron TIBC % Saturation Ferritin Total Bilirubin AST ALT Alkaline Phosphatase Total Protein Albumin Vitamin D 25-Hydroxy PTH Intact Hospitalist MIPS Advance Care Plan I have confirmed that the patient's Advanced Care Plan is present, code status is documented, or surrogate decision maker is listed in patient medical record.: Yes Medication Reconciliation I have utilized all available resources to obtain, update and review the patients current medications (includes all prescriptions, OTC, herbals, cannabis, and nutritional supplements).: Yes
--- NOTE | 2025-07-31 19:57 | PC.NURSE ---
1730 returned to room post dialysis treatment
[2025-07-31] MEDS: ATORVASTATIN 10 MG TABLET BY MOUTH (20:41)
[2025-07-31] MEDS: ACETAMINOPHEN 325 MG TABLET 650 MG PO (22:05)
[2025-07-31] MEDS: oxyCODONE/ACETAMINOPHEN (*CRX) 5-325 MG TABLET 1 TABLET PO (23:51)
[2025-08-01] VITALS (8 sets, daily range): BP systolic 145–150; BP diastolic 48–74; PULSE 68–86; RESP 15–16; TEMP 36.4–36.9; O2SAT 96–99
[2025-08-01 04:42] LABS: Hematocrit 25.6 % (37.0-47.0); Hemoglobin 7.5 g/dL (12.0-15.0); Immature Granulocyte Percent A 0.4 % (0-0.5); Lymphocytes Absolute Auto 2.53 K/mm3 (0.9-3.2); Mean Corpuscular HGB Conc 29.3 g/dl (32-36); Mean Corpuscular Hemoglobin 31.5 pg (26-34); Mean Corpuscular Volume 107.6 fl (80-100); Nucleated Red Blood Cells Absolute Auto 0.020 K/mm3 (0.0-0.012); Nucleated Red Blood Cells Perc 0.2 % (0.0-0.2); Platelet Count Result 162 k/mm3 (150-375); Red Blood Count 2.38 M/mm3 (4.2-5.4); White Blood Count 9.5 K/mm3 (4.5-10.0)
[2025-08-01 05:14] LABS: Alanine Aminotransferase 9 U/L (6-35); Albumin Level 2.8 g/dL (3.5-5.1); Alkaline Phosphatase 104 U/L (38-126); Anion Gap 4 mmol/L (4-12); Aspartate Amino Transferase 20 U/L (14-36); Bilirubin,Total 0.3 mg/dL (0.2-1.3); Blood Urea Nitrogen 18 mg/dL (7-17); Calcium 7.9 mg/dL (8.4-10.2); Carbon Dioxide 29 mmol/L (22-30); Chloride 102 mmol/L (98-107); Estimated CRCL calculation 41 ml/min; Estimated Glomerular Filt Rate 33; Glucose 126 mg/dL (65-110); Potassium 3.4 mmol/L (3.4-5.0); Sodium 135 mmol/L (137-145); Total Protein 5.7 g/dL (6.3-8.2)
[2025-08-01 05:30] LABS: Hypochromasia 1+
[2025-08-01 05:31] LABS: Anisocytosis Occasional; Schistocytes None Seen; Stomatocytes Occasional
[2025-08-01] MEDS: SACCHAROMYCES BOULARDII 250 MG CAPSULE PO ×2 (08:28→13:05)
[2025-08-01] MEDS: PANTOPRAZOLE 40 MG TABLET PO (08:28)
[2025-08-01] MEDS: SERTRALINE HCL 50 MG TABLET 100 MG PO (08:28)
[2025-08-01] MEDS: GABAPENTIN 300 MG CAPSULE 600 MG PO (08:29)
[2025-08-01] MEDS: buPROPion HCL XL (24 HR) 150 MG TABCR 300 MG PO (08:29)
[2025-08-01] MEDS: CHOLECALCIFEROL (VITAMIN D3) 25 MCG (1,000 UNITS) TABLET PO (08:30)
--- NOTE | 2025-08-01 12:25 | P.PNNP_ITS ---
Progress Note: A&P Assessment and Plan (1) End stage renal disease: Code(s): N18.6 - End stage renal disease Status: Acute Assessment and Plan: * secondary to biopsy-proven diabetic nephropathy/nephrosclerosis along with contributions from hypertension, and vascular disease in association with recurrent bouts of acute kidney injury/ acute renal failure secondary to her previous urinary tract infections as well as recurrent C diff colitis * progression of underlying CKD noted: * uremic symptoms noted (nausea + vomiting + poor appetite + fatigue/lethargy + altered mentation...etc) - suspect acute UTI may have precipitated worsening uremic symptoms * persistent metabolic acidosis * relative anemia * HOWEVER, no critical electrolytes and volume status relatively * unfortunately, AVF not able to be used currently due to small size... * this was confirmed by evaluation by one of the acute dialysis nurses here at [facility] * s/p tunneled HD catheter (on 07/29) * HD on 07/29, 07/30, and 07/31 * outpatient dialysis arrangements being finalized (T/T/S schedule) * noted interest in home hemodialysis (2) Metabolic acidosis: Code(s): E87.20 - Acidosis, unspecified Status: Acute Assessment and Plan: * slow improvement * quite severe on presentation * due to several issues: * worsening renal dysfunction/failure * acute infection (UTI) * known diabetes * known history of GI issues(?) * s/p bicarb gtt and oral sodium bicarbonate * ongoing correction with dialysis (3) UTI (urinary tract infection): Code(s): N39.0 - Urinary tract infection, site not specified Status: Acute Assessment and Plan: * as suggested by admission UA * UA: with 3+ blood, positive nitrates, 3+ leukocyte esterase, urine wbc's greater than 100, and 4+ bacteria * follow culture data - urine culture not done on admission * re-ordered and pending * on antibiotics * known history of recurrent UTIs * Urology recommendations noted (4) Hypokalemia: Code(s): E87.6 - Hypokalemia Status: Resolved Assessment and Plan: * slowly improvement * due to several issues: * poor oral intake (nausea/vomiting) * bicarb fluids + oral bicarbonate supplementaion * low magnesium * cautiously IV and oral replacement as tolerated * follow magnesium levels * follow repeat K+ levels (5) Anemia: Qualifiers: Anemia type: unspecified type Qualified Code(s): D64.9 - Anemia, unspecified Code(s): D64.9 - Anemia, unspecified Status: Acute Assessment and Plan: * presumably due to ESRD * suspect some dilutional effects from IVF resuscitation * no evidence of bleeding * consider checking iron studies * however, would avoid IV venofer in the the context of a possible infection (UTI) * Epogen with HD * follow H/H (6) Hypertension: Code(s): I10 - Essential (primary) hypertension Status: Chronic Assessment and Plan: * fluctuating at this time * since on dialysis now, added lisinopril (and titrate as needed) * continue hydralazine * follow trend of hemodynamics (7) IDDM (insulin dependent diabetes mellitus): Status: Chronic Assessment and Plan: * follow accu-cheks * glycemic control per hospitalist (8) Generalized weakness: Code(s): R53.1 - Weakness Status: Acute Assessment and Plan: * presumably due to ESRD in conjunction with uremia and acute infection/UTI * PT/OT * continue supportive therapy Not opposed to discharge from renal perspective if otherwise medically stable -- I will try to facilitate transition to home HD given her interest in this modality following discharge. Will continue to follow. L Subjective Date/time seen: 08/01/25 12:25 Interval history: Follow-up for end stage renal disease with initiation of hemodialysis. Tolerated dialysis treatment yesterday without any issues or problems; no apparent distress voiced when seen; no issues/events overnight or earlier this morning; no other complaints to report on my visit. Exam 2 Narrative: General: WD/WN female in NAD Heart: normal S1 and S2; no rub Lungs: clear anteriorly Abdomen: soft, nontender, nondistended, positive bowel sounds Extremities: no cyanosis or clubbing; no edema; s/p right BKA Skin: no nodules Objective Data Vital Signs Vital Signs: Vital Signs Temp Pulse Resp BP Pulse Ox 08/01/25 12:00 98.4 F 86 16 145/48 H 96 08/01/25 10:00 74 08/01/25 08:00 71 08/01/25 08:00 97.6 F 71 16 146/61 H 96 08/01/25 06:00 68 08/01/25 04:00 68 08/01/25 04:00 98 F 68 15 150/74 H 99 11/05/25 02:00 80 08/01/25 00:00 76 07/31/25 23:59 98.3 F 79 16 156/62 H 98 07/31/25 22:00 75 07/31/25 20:00 75 07/31/25 20:00 98.3 F 84 16 136/47 L 93 07/31/25 18:00 78 07/31/25 17:55 98.4 F 72 16 171/57 H 94 07/31/25 17:30 79 07/31/25 17:16 98.4 F 75 16 173/74 H 95 07/31/25 17:12 74 160/67 H 07/31/25 17:00 72 173/78 H 07/31/25 16:45 72 173/73 H 07/31/25 16:30 72 174/72 H Intake/Output Intake/Output: Intake & Output 07/29/25 07/30/25 07/31/25 08/01/25 22:59 23:59 23:59 23:59 Intake Total 1641 2230 1460 730 Output Total 850 2390 1825 100 Balance 794 -733 -650 630 Meds/Results Medications: Active Medications Generic Name Dose Route Start Last Admin Trade Name Freq PRN Reason Stop Dose Admin Acetaminophen 650 mg 07/28/25 20:13 07/31/25 22:05 Acetaminophen 325 Mg Tablet PO 650 mg Q4H PRN Administration Mild Pain (1-3) or Fever Albuterol 2 puff 07/27/25 22:41 Albuterol Sulfate (*Sp) Aerosol 1 Puff INHALATION Q6HRT PRN Shortness Of Breath Or Wheezin Atorvastatin Calcium 10 mg 07/27/25 22:45 07/31/25 20:41 Atorvastatin 10 Mg Tablet BY MOUTH 10 mg HS KOBE Administration Bupropion HCl 300 mg 07/28/25 09:00 08/01/25 08:29 Bupropion Hcl Xl (24 Hr) 150 Mg Tabcr PO 300 mg DAILY KOBE Administration Dextrose 12.5 gm 07/28/25 13:08 Dextrose 50% 25 Gm/50 Ml Syringe IV PUSH PRN PRN Hypoglycemia Protocol Gabapentin 600 mg 07/28/25 09:00 08/01/25 08:29 Gabapentin 300 Mg Capsule PO 600 mg QAM KOBE Administration Gabapentin 300 mg 07/31/25 12:00 11/05/25 13:05 Gabapentin 300 Mg Capsule PO 300 mg DAILY@1200,2100 KOBE Administration Glucagon 1 mg 07/28/25 13:08 Glucagon For Inj 1 Mg Vial IM PRN PRN Hypoglycemia Protocol Glucose 15 gm 07/28/25 13:08 Glucose Oral Gel 15 Gm Of Glucse In 37.5 Gm Tube PO PRN PRN Hypoglycemia Protocol Heparin Sodium (Porcine) 5,000 units 07/30/25 21:00 08/01/25 08:30 Heparin Sodium 5,000 Units/Ml Vial SUB-Q 5,000 units Q12HR KOBE Administration Hydralazine HCl 25 mg 07/30/25 09:00 08/01/25 08:29 Hydralazine Hcl 25 Mg Tablet PO 25 mg BID KOBE Administration Dextrose 1,000 mls @ 100 mls/hr 07/28/25 13:08 Dextrose 5% 1,000 Ml IVPB PRN PRN Hypoglycemia Protocol Albumin Human 50 mls @ 999 mls/hr 07/29/25 08:41 Albutein IVPB 08/28/25 08:40 Q10M PRN HYPOTENSION Insulin Aspart 3 - 6 units 07/28/25 08:00 08/01/25 13:05 Insulin Aspart (*Bkc) 100 Units/Ml SUB-Q Not Given TIDWM [facility] Protocol Lisinopril 10 mg 07/30/25 09:00 08/01/25 08:30 Lisinopril 10 Mg Tablet PO 10 mg DAILY KOBE Administration Miscellaneous Information 0 each 07/28/25 00:01 Rexulti May Use From Home Send To Pharmacy For Verification Once Brought In XX 08/27/25 00:00 CLARIFY KOBE Nicotine 1 patch 07/28/25 09:00 08/01/25 08:28 Nicotine (*Pbkc) 21 Mg Patch TRANSDERM Not Given DAILY [facility] Non-Formulary Medication 2 mg 07/28/25 09:00 Brexpiprazole [Rexulti] PO 08/27/25 08:59 DAILY KOBE Ondansetron HCl 4 mg 07/28/25 11:25 Ondansetron Inj 4 Mg/2 Ml Vial IV PUSH Q6H PRN Nausea And Vomiting Oxycodone/Acetaminophen 1 tablet 07/29/25 11:41 07/31/25 23:51 Oxycodone/Acetaminophen (*Crx) 5-325 Mg Tablet PO 1 tablet Q6H PRN Administration Pain Rated 7-10 Oxycodone/Acetaminophen 0.5 tablet 07/29/25 11:41 Oxycodone/Acetaminophen (*Crx) 5-325 Mg Tablet PO Q6H PRN Pain Rated 4-6 Pantoprazole Sodium 40 mg 07/28/25 09:00 08/01/25 08:28 Pantoprazole 40 Mg Tablet PO 40 mg DAILY KOBE Administration Saccharomyces Boulardii 250 mg 07/29/25 17:00 08/01/25 13:05 Saccharomyces Boulardii 250 Mg Capsule PO 250 mg TID KOBE Administration Sertraline HCl 100 mg 07/28/25 09:00 08/01/25 08:28 Sertraline Hcl 50 Mg Tablet PO 100 mg DAILY KOBE Administration Trazodone HCl 150 mg 07/27/25 22:41 07/31/25 23:52 Trazodone Hcl 50 Mg Tablet PO 150 mg HS PRN Administration Insomnia Vitamin D 25 mcg 07/28/25 09:00 08/01/25 08:30 Cholecalciferol (Vitamin D3) 25 Mcg (1,000 Units) Tablet PO 25 mcg DAILY KOBE Administration Radiology Results: ITS Impressions Head CT 07/27/25 15:50 Impression: 1.No acute intracranial abnormality. Abdomen/Pelvis CT 07/27/25 15:57 IMPRESSION: 1. Borderline bladder wall thickening and subtle haziness to the surrounding fat consistent with mild cystitis. Correlate with urinalysis. 2. Pleural thickening along the margins of a small likely complex left pleural effusion. 3. Mild cardiomegaly. 4. Nonspecific splenomegaly. 5. Small fat-containing umbilical hernia. Chest X-Ray 07/29/25 11:42 IMPRESSION: 1. No pneumothorax. 2. Worsening bibasilar atelectasis. 3. Small left pleural effusion persists. Labs Labs: Laboratory Tests 08/01/25 04:08 08/01/25 04:08 Calcium 7.9 L Phosphorus 2.5 Total Bilirubin 0.3 AST 20 ALT 9 Alkaline Phosphatase 104 Total Protein 5.7 L Albumin 2.8 L Microbiology 07/30/25 04:16 Urine Clean Catch Urine Culture - Final
[2025-08-01] MEDS: GABAPENTIN 300 MG CAPSULE PO (13:05)
--- NOTE | 2025-08-01 13:38 | PM.DS ---
DS: Admitting Diagnosis Discharge Date 08/01/25 Admitting Diagnosis New ESRD DS: Discharge Diagnosis Discharge Diagnosis (1) End stage renal disease: Code(s): N18.6 - End stage renal disease Status: Acute (2) Metabolic acidosis: Code(s): E87.20 - Acidosis, unspecified Status: Acute (3) Encephalopathy: Qualifiers: Encephalopathy type: toxic metabolic Qualified Code(s): G92.8 - Other toxic encephalopathy Code(s): G93.40 - Encephalopathy, unspecified Status: Acute (4) Type 2 diabetes mellitus with hyperglycemia, with long-term current use of insulin: Code(s): E11.65 - Type 2 diabetes mellitus with hyperglycemia; Z79.4 - terminal superintendent (current) use of insulin Status: Acute (5) Recurrent Clostridioides difficile infection: Code(s): A49.8 - Other bacterial infections of unspecified site Status: Acute (6) Hypertension: Code(s): I10 - Essential (primary) hypertension Status: Chronic (7) Hyperlipidemia LDL goal <100: Code(s): E78.5 - Hyperlipidemia, unspecified Status: Acute (8) Bipolar disorder: Qualifiers: Active/Remission status: remission status unspecified Qualified Code(s): F31.9 - Bipolar disorder, unspecified Code(s): F31.9 - Bipolar disorder, unspecified Status: Acute DS: Summary Hospital Course Hospital Course: This is a 60-year-old female patient who has chronic renal failure, frequent urinary tract infection with drug-resistant bacteria, recurrent C difficile, diabetes, and hypertension. The patient complained that she has had generalized weakness and some confusion. She also complained of right lower quadrant abdominal tenderness. The patient stated that she has an appointment with the shopper's aide on Wednesday and was going to talk about dialysis on that day. She already has a left forearm AV fistula placed. Labs up obtain in the emergency room white count is 14.9, H&H 9.5 and 30.2. ABGs suggest metabolic acidosis. Her creatinine is 6.5 with BUN of 40. Her GFR 7. Point of care glucose is 165. Urinalysis shows 3+ leukocyte esterase, urine wbc's greater than 100, 4+ urine bacteria and positive nitrate. Chest x-ray was read as findings in the inferior left hemothorax stranding atelectasis versus infiltrate at the left lung base. Head CT no acute intracranial abnormality. She was started on meropenem, sodium bicarb, and IV fluids. Nephrology has been consulted. The patient is being admitted to inpatient services on the date of service of 07/27/2025. AV fistula has positive bruit and thrill but nonfunctional per Nephrology, which hemodialysis catheter was placed July 29. Acidosis associated with initial labs began to improve with dialysis, as to patient's mental status. She was started on or open her for UTI, most recent urine culture grew strep with multiple sensitivities including meropenem. However final culture result turn done negative, prompting discontinuation of meropenem given risk of C difficile infection. Patient initially had a loose stools concerning for above but this resolved after discontinuation of meropenem. C diff testing was sent out. Once dialysis catheter was placed by surgery Team, hemodialysis could commence, allowing for continued improvement of symptoms. She received dialysis 3 days in a row and is now arranged for outpatient dialysis on discharge. NOTE: Systolic murmur noted on exam, patient not previously aware of this. Advised patient to follow up with her PCP for further workup if needed. Time Spent with Patient Time attestation: Total time spent providing and/or coordinating discharge services: Exam Narrative: HEENT: EOMI, PERRL, sclerae nonicteric, pharyngeal mucosa pink and intact NECK: No JVD, adenopathy, or thyromegaly CHEST: Normal effort, bilateral LL crackles HEART: NL S1/S2, regular, 3/6 VICENTE LUSB & RUSB that radiates poorly ABDOMEN: BS+, soft, nontender, no mass, no bruits EXTREMITIES: No cyanosis, edema, or clubbing NEUROLOGIC: CN intact and symmetric to inspection. MUSCULOSKELETAL: Tone and strength symmetric, Right BKA stump intact PSYCH: Alert. Oriented to person, place, and time Const: General: cooperative, comfortable, no acute distress, well developed, awake, Physically active, average body habitus and well nourished Nutritional Appearance: average body habitus and well nourished Orientation/consciousness: oriented to person and oriented to place Limitations: no limitations HENMT: Head: normal to inspection, No palpable skull fracture present, normocephalic and atraumatic Eyes: General: appearance normal, both eyes and all related structures Alignment and Position: alignment normal Periorbital: periorbital findings normal Pupils: Equal, round and reactive pupils present Neck: Neck: normal visual inspection Chest: Chest palpation & inspection: normal inspection of the chest Resp: Effort & Inspection: normal respiratory effort Cardio: Palpation: normal PMI Rate: regular rate Rhythm: regular rhythm Heart sounds: S1 normal heart sound present and S2 normal heart sound present Peripheral pulses: Peripheral pulses 2+ throughout GI: Inspection: normal to inspection Auscultation: normal bowel sounds Rectal Exam: deferred Skin: General skin exam: normal color Lesions: no lesions Rashes: no rashes Trauma: no lacerations or abrasions Wounds: no wounds Hair: normal Nails: normal Other: excoriation under bilateral breast and under abdominal fold to the suprapubic area. She has friction ulcers x2 to her sacral area. Skin between the toes on the left foot are within normal limits. Her right [id number] amputation stump is free of any erythema. Neuro: General: oriented to person and oriented to place Cranial nerves: Yes Equal, round and reactive pupils present and Yes Normal hearing present Cognition (Neuro): normal cognition Speech: normal speech Motor exam (neuro): 5/5 motor strength present throughout Extrem: General: normal to inspection Right upper extremity: normal to inspection and shoulder/upper arm Left upper extremity: normal to inspection and shoulder/upper arm Other: Right [id number] amputation noted Psych: Appearance: grossly normal Mental Status: mental status grossly normal Speech and movement: Normal speech and movement present Affect: normal affect Attitude: cooperative Thought process: Normal thought process present Insight: Limited insight present (Psych) Judgement: Limited judgement present (Psych) DS: Data Data Completed and Pending Labs on day of discharge: Labs from last 24 hours 08/01/25 08/01/25 08/01/25 11:19 07:20 04:08 WBC 9.5 RBC 2.38 L Hgb 7.5 L Hct 25.6 L MCV 107.6 H MCH 31.5 MCHC 29.3 L RDW 15.4 H Plt Count 162 MPV 10.5 H Immature Gran % (Auto) 0.4 Neut % (Auto) 63.8 Lymph % (Auto) 26.7 [place] % (Auto) 7.7 Eos % (Auto) 1.0 Baso % (Auto) 0.4 Lymph # (Auto) 2.53 [place] # (Auto) 0.7 H Eos # (Auto) 0.1 Baso # (Auto) 0.0 Abs Immat Gran (auto) 0.04 H Absolute Neuts (auto) 6.0 Absolute Nucleated RBC 0.020 H Band Neutrophils % Not Reportable Nucleated RBC % 0.2 Platelet Estimate Adequate Hypochromasia 1+ Anisocytosis Occasional Stomatocytes Occasional Schistocytes None seen Sodium 135 L Potassium 3.4 Chloride 102 Carbon Dioxide 29 Anion Gap 4 BUN 18 H Creatinine 1.61 H Estim Creat Clear Calc 41 Estimated GFR 33 L Glucose 126 H POC Capillary Glucose 173 H 142 H Calcium 7.9 L Phosphorus 2.5 Total Bilirubin 0.3 AST 20 ALT 9 Alkaline Phosphatase 104 Total Protein 5.7 L Albumin 2.8 L 07/31/25 07/31/25 19:35 17:52 WBC RBC Hgb Hct MCV MCH MCHC RDW Plt Count MPV Immature Gran % (Auto) Neut % (Auto) Lymph % (Auto) [place] % (Auto) Eos % (Auto) Baso % (Auto) Lymph # (Auto) [place] # (Auto) Eos # (Auto) Baso # (Auto) Abs Immat Gran (auto) Absolute Neuts (auto) Absolute Nucleated RBC Band Neutrophils % Nucleated RBC % Platelet Estimate Hypochromasia Anisocytosis Stomatocytes Schistocytes Sodium Potassium Chloride Carbon Dioxide Anion Gap BUN Creatinine Estim Creat Clear Calc Estimated GFR Glucose POC Capillary Glucose 255 H 125 H Calcium Phosphorus Total Bilirubin AST ALT Alkaline Phosphatase Total Protein Albumin Preliminary micro results at discharge 07/27/25 16:19 Blood Culture - Preliminary Blood 07/27/25 16:19 Blood Culture - Preliminary Blood Discharge Plan Discharge Consulting providers: Clark Huizar; Sunil Mcnulty Discharging Clinician: Wesley Diaz Oca Patient Disposition: Home Activity: as tolerated Diet: diabetic and renal Discharge Instructions: Per Care Coordination: Hemo Dialysis has been arranged through [facility]. Your chair time will be Wednesday, , and Saturdays at 10:15am. [facility] anticipates you for a start of service on 08/02/2025. Please arrive 30 minutes early (9:45am) to your first appointment with [facility] . Please bring a photo ID and your insurance cards. It is suggested you also bring loose clothing and a blanket to use. [facility] is located at [address] [place] [address]. They can be contacted at [phone]. Patient Instructions: Antibiotic Form, How to Stop Smoking (DC), Acute Kidney Injury (GEN), Urinary Tract Infection in Women (GEN), Low-Sodium Diet (GEN) Patient Language: Georgian Stand Alone Forms: General Discharge Information Follow-up/Referrals: Sunil Mcnulty MD [Physician, Urology] Federico Meza MD [Primary Care Provider, Family Practice] Discharge Medications: New lisinopril 10 mg Tablet 10 mg PO DAILY 30 Days Qty: 30 0RF Saccharomyces boulardii [Florastor] 250 mg Capsule 250 mg PO TID 30 Days Qty: 90 0RF Continued (DME) Dexcom G7 Acquisition Associate Misc See Rx Instructions .ROUTE .MEDSUPPLY Qty: 1 0RF Rx Instructions: Will use smartphone (DME) pen needle, diabetic [BD Ultra-Fine Erika Pen Needle] 32 gauge x 5/32 needle See Rx Instructions .Route Qty: 600 4RF Rx Instructions: Use to administer insulin 4 times a day furosemide 20 mg tablet See Rx Instructions .ROUTE .COMPLEX Qty: 90 3RF Dose Instruction: TAKE 1 TABLET BY MOUTH IN THE MORNING Rx Instructions: TAKE 1 TABLET BY MOUTH IN THE MORNING (DME) Dexcom G7 Sensor Device See Rx Instructions .ROUTE .COMPLEX Qty: 9 1RF Dose Instruction: USE TO MONITOR GLUCOSE (CHANGE SENSOR EVERY 10 DAYS) Rx Instructions: USE TO MONITOR GLUCOSE (CHANGE SENSOR EVERY 10 DAYS) hydralazine 25 mg tablet 25 mg PO TID 30 Days Qty: 0 0RF insulin degludec [Tresiba FlexTouch U-200] 200 unit/mL (3 mL) insulin pen 12 unit subcut QHS 30 Days Qty: 9 3RF promethazine 25 mg tablet 25 mg PO TID PRN (Reason: Nausea) 30 Days Qty: 0 0RF atorvastatin 10 mg tablet See Rx Instructions .ROUTE .COMPLEX 30 Days Qty: 90 1RF Dose Instruction: Take 1 tablet by mouth once daily Rx Instructions: Take 1 tablet by mouth once daily Humalog KwikPen Insulin 200 unit/mL (3 mL) insulin pen 4 unit subcut TIDWM MDD 25 30 Days Qty: 24 1RF Rx Instructions: 4 units premeal +SSI 150-200: 1 units 201-250: 2 units 251-300: 3 units 301-350: 4 units 351-400: 5 units >401: 6 units Max Daily Dose 25 units once daily gabapentin 300 mg capsule See Rx Instructions PO .COMPLEX 30 Days Qty: 120 1RF Rx Instructions: 600mg in the AM, 300mg in afternoon, and 300mg QHS orally albuterol sulfate 90 mcg/actuation HFA aerosol inhaler 2 inh inhalation Q6H PRN (Reason: shortness of breath or wheezing) 30 Days Qty: 8.5 0RF sertraline 100 mg tablet 100 mg PO DAILY 30 Days Qty: 0 0RF nicotine [Nicoderm CQ] 21 mg/24 hr patch 24 hour 1 patch transdermal DAILY 30 Days Qty: 28 0RF sodium bicarbonate 650 mg tablet 650 mg PO BID 30 Days Qty: 60 6RF bupropion HCl 300 mg tablet extended release 24 hr 300 mg PO DAILY 30 Days Qty: 0 0RF pantoprazole 40 mg tablet,delayed release (DR/EC) 40 mg PO DAILY 30 Days Qty: 0 0RF trazodone 150 mg Tablet 150 mg PO HS PRN (Reason: Insomnia) 30 Days Qty: 0 0RF Vitamin B-12 50 mcg Tablet 50 mcg PO DAILY 30 Days Qty: 0 0RF Rexulti 2 mg tablet 2 mg PO DAILY 30 Days Qty: 0 0RF cholecalciferol (vitamin D3) [Vitamin D3] 25 mcg (1,000 unit) Tablet,Chewable 25 mcg PO DAILY 30 Days Qty: 0 0RF Discontinued potassium chloride [Klor-Con M20] 20 mEq tablet,ER particles/crystals 20 meq PO BID Qty: 14 1RF Date of admission: 07/27/25 17:17 Primary Care Provider: Federico Meza Admitting Provider: Branden Hendrikcson Attending physician on admission: Branden Hendrickson Condition: Serious
== END 2025-08-01 16:05 | disposition home or self-care (01) | DRG 673 ==
LOC: ANHED 17:56 → ANHIMU 18:28
PROVIDERS: Internal Medicine; Internal Medicine Nephrology; Nurse Practitioner; Student in an Organized Health Care Education/Training Program; Surgery; Admitting Provider Internal Medicine; Emergency Provider Nurse Practitioner; PCP Family Medicine; Visit Provider Student in an Organized Health Care Education/Training Program
PROC: 0JH63XZ Insertion of Tunneled Vascular Access Device into Chest Subcutaneous Tissue and Fascia, Percutaneous Approach (ICD-10-PCS; CPT 36908; principal; 2025-07-29 09:30)
DX: I12.0 Hypertensive chronic kidney disease with stage 5 chronic kidney disease or end stage renal disease (principal); L89.153 Pressure ulcer of sacral region, stage 3; E87.21 Acute metabolic acidosis; G93.40 Encephalopathy, unspecified; N18.6 End stage renal disease; N30.20 Other chronic cystitis without hematuria; E87.6 Hypokalemia; D63.1 Anemia in chronic kidney disease; E78.2 Mixed hyperlipidemia; E11.65 Type 2 diabetes mellitus with hyperglycemia; E11.42 Type 2 diabetes mellitus with diabetic polyneuropathy; K58.0 Irritable bowel syndrome with diarrhea; K58.1 Irritable bowel syndrome with constipation; K21.9 Gastro-esophageal reflux disease without esophagitis; M54.89 Other dorsalgia; F31.9 Bipolar disorder, unspecified; Z20.822 Contact with and (suspected) exposure to COVID-19; F17.210 Nicotine dependence, cigarettes, uncomplicated; E66.9 Obesity, unspecified; Z68.30 Body mass index [BMI] 30.0-30.9, adult; Z87.440 Personal history of urinary (tract) infections; Z79.4 Long term (current) use of insulin; Z87.19 Personal history of other diseases of the digestive system; Z90.49 Acquired absence of other specified parts of digestive tract; Z89.511 Acquired absence of right leg below knee; Z86.19 Personal history of other infectious and parasitic diseases
CPT/HCPCS: 36415; 36600; 70450; 71046; 74176; 80048; 80053; 80069; 81001; 82010; 82140; 82306; 82607; 82728; 82746; 82805; 82948; 83036; 83540; 83550; 83605; 83735; 83970; 84100; 85018; 85025; 85027; 85055; 86704; 86706; 87040; 87086; 87340; 87637; 93005; 96361; 96374; 97110; 97161; 97165; 97530; 97535; 99199; 99291; J0690; A9270; C1750; G0257; J1644; J1815; J2004; J2185; J3010; J3475; J3480; J7030; J7040; J7070; J7120; Q5105

== ENCOUNTER 2025-08-13 10:00 | Outpatient (CLI) | payer OTHER, SELFPAY ==
[2025-08-13 11:38] LABS: Toxigenic C. Diff NEGATIVE (NEGATIVE)
== END 2025-08-13 10:01 | disposition home or self-care (01) ==
LOC: ANHLAB 10:02
PROVIDERS: PCP Family Medicine; Visit Provider Nurse Practitioner Family
DX: A49.8 Other bacterial infections of unspecified site (principal)
CPT/HCPCS: 87493